=== PATIENT | male | born 1975 | race Caucasian/White ===

== ENCOUNTER 2017-10-12 23:19 | Emergency (ER) | payer MEDICARE, OTHER | END 2017-10-13 00:52 | disposition home or self-care (01) | LOC: ERS 23:19 | DX: S02.5XXA Fracture of tooth (traumatic), initial encounter for closed fracture (principal); I10 Essential (primary) hypertension; K50.90 Crohn's disease, unspecified, without complications; E78.5 Hyperlipidemia, unspecified; F41.9 Anxiety disorder, unspecified; X58.XXXA Exposure to other specified factors, initial encounter | CPT/HCPCS: 99282 ==

== ENCOUNTER 2017-11-04 13:58 | Inpatient (IN) | payer MEDICARE ==
[~2017-11-04 13:58] MED LIST: ISOVUE-370 76%-LOCM 1 ML ONE
[2017-11-04 15:19] LABS: #Lymphocytes 1.3 thou/uL (1.20-3.40); #Monocytes 0.4 thou/uL (0.11-0.59); #Neutrophils 4.6 thou/uL (1.40-6.50); %Basophils 0.1 % (0.0-1.0); %Eosinophils 0.5 % (0.0-10.0); %Lymphocytes 20.9 % (21.0-51.0); %Monocytes 6.1 % (0.0-10.0); %Neutrophils 72.4 % (42.0-75.0); Hemoglobin 13.7 g/dL (14.0-18.0); Mean Corpuscular HGB CONC 32.2 g/dL (32.0-36.0); Mean Corpuscular Hemoglobin 24.7 pg (27.0-31.0); Mean Corpuscular Volume 76.7 fl (80.0-94.0); Mean Platelet Volume 8.2 fL (7.4-10.4); Platelet Count 236 thou/uL (130-400); RBC Distribution Width 14.9 % (11.5-14.5); Red Blood Cell (RBC) Count 5.55 mill/uL (4.70-6.10); White Blood Cell (WBC) Count 6.4 thou/uL (4.8-10.8)
[2017-11-04] MEDS ORDERED: Morphine 4 MG/ML VIAL ONE (15:20)
[2017-11-04] MEDS ORDERED: Ondansetron HCl/PF 4 MG/2 ML Vial ONE (15:21)
[2017-11-04] MEDS ORDERED: Lidocaine Viscous Sol 2% 15 ml UD Cup ONE (15:40)
[2017-11-04] MEDS ORDERED: Pantoprazole 40 MG VIAL ONE (15:40)
[2017-11-04] MEDS ORDERED: Sucralfate 1 GM/10 ML UDCUP ONE (15:40)
[2017-11-04] MEDS ORDERED: Mag-Al 1200 mg/1200 mg/30 ML UDCUP ONE (15:40)
[2017-11-04 15:46] LABS: ALT (SGPT) 23 U/L (8-55); AST (SGOT) 18 U/L (5-34); Albumin 5.1 g/dL (3.5-5.0); Alkaline Phosphatase 118 U/L (40-150); Anion Gap 15 mmol/L (10-20); BUN (Urea Nitrogen) 11 mg/dL (8.9-20.6); Bilirubin, Total 0.7 mg/dL (0.2-1.2); Calc. Creatinine Clearance 0 mL/min (70-130); Calcium 10.2 mg/dL (7.8-10.44); Carbon Dioxide 24 mmol/L (22-29); Chloride 104 mmol/L (98-107); Estimated GFR-MDRD 79; Globulin 3.4 g/dL (2.4-3.5); Glucose 108 mg/dL (70-105); Lipase 11 U/L (8-78); Protein, Total 8.5 g/dL (6.0-8.3); Sodium 139 mmol/L (136-145)
[2017-11-04 16:07] LABS: PTT 26.5 SEC (22.9-36.1); Prothrombin Time 13.6 SEC (12.0-14.7)
--- NOTE | 2017-11-04 16:11 | RAD ---
FRONTAL RADIOGRAPH CHEST PORTABLE UPRIGHT: Date: 11/04/17 COMPARISON: 05/11/16. HISTORY: Vomiting blood. FINDINGS: There are suture lines associated with bilateral lung apices. Dorsal column stimulators present on the prior examination have been removed. There is a suture line overlying the mid left upper lobe region as well. Sixth rib on the left appears absent, stable. There is an old left seventh rib fracture seen. There is pulmonary hyperinflation with increased linear in terstitial density bilaterally, stable. IMPRESSION: Numerous chronic findings as detailed above. No lobar consolidation or alveolar edema. POS: [facility]
[2017-11-04] MEDS ORDERED: Morphine 10 MG/ML VIAL ONE (18:09)
[2017-11-04 18:15] LABS: Bilirubin Negative (Negative); Blood, Urine Negative (Negative); Clarity CLEAR (Clear); Glucose, Urine (Dipstick) Negative (Negative); Leukocyte Negative (Negative); Nitrite Negative (Negative); Protein, Urine (Dipstick) Negative (Neg-Trace); Specific Gravity, Urine 1.009 (1.002-1.036); Urobilinogen 0.2 mg/dL (0.2-1.0); pH, Urine 6.5 (5.0-9.0)
--- NOTE | 2017-11-04 19:20 | CT ---
CT ABDOMEN WITH CONTRAST CT PELVIS WITH CONTRAST: DATE: 11/04/17 TIME: 5:43 p.m. HISTORY: 41-year-old male with generalized abdominal pain. Hematemesis. Nausea. COMPARISON: Noncontrast CT of 03/05/17. TECHNIQUE: IV injection of iodinated contrast media: IV contrast 100 mL Isovue 370. Oral contrast media: Not administered. FINDINGS: The previously demonstrated subcutaneous emphysema in the abdominal wall and superficial subcutaneous fat, has resolved. Again noted are the cholecystectomy clips, and suture line around the most proxim al portion of the colon, which is located in the right upper quadrant of the abdomen. The appendix is surgically absent by history. No signs of acute colonic diverticulitis, pneumoperitoneum, ascites, o r small bowel dilation. The abdominal aorta, bilateral kidneys, adrenals, liver, and spleen, are norm al except for the possibility of mildly fatty liver. There is fatty replacement of the pancreatic hea d. No signs of acute pancreatitis or neoplasm. The urinary bladder is normal. IMPRESSION: 1. No acute findings. 2. Status post appendectomy, cholecystectomy, and surgical manipulation of the proximal colon. CL Escobar POS: [facility]
[2017-11-04] MEDS: Sodium Chloride 0.9% 1,000 ML IV SCH (21:00)
[2017-11-04] MEDS ORDERED: Ondansetron ODT 4 MG TAB SL PRN (21:03)
[2017-11-04] MEDS ORDERED: Ondansetron HCl/PF 4 MG/2 ML Vial IVP PRN (21:03)
[2017-11-04 21:50] VITALS: BMI 23.8
[2017-11-04] MEDS ORDERED: ALPRAZolam 1 MG TAB PO SCH (23:00)
[2017-11-04] MEDS ORDERED: Pantoprazole 80 MG in Sodium Chloride 0.9% 100 ML IVP SCH (23:54)
[2017-11-04] MEDS ORDERED: Morphine 5 MG/ML SYRINGE SLOW IVP PRN (23:54)
[2017-11-05] MEDS ORDERED: Pantoprazole 40 MG VIAL IVP SCH ×2 (00:15→09:00)
[2017-11-05] MEDS: Morphine 5 MG/ML SYRINGE SLOW IVP PRN ×6 (00:16→22:57)
[2017-11-05] MEDS: Dextrose 5 % And 0.9 % NaCl 1,000 ML IV SCH ×3 (01:24→16:08)
[2017-11-05] MEDS: Ondansetron HCl/PF 4 MG/2 ML Vial IVP PRN ×2 (03:41→23:17)
[2017-11-05] MEDS: Sodium Chloride 0.9% 1,000 ML IV SCH (05:26)
[2017-11-05 05:59] LABS: Anion Gap 15 mmol/L (10-20); BUN (Urea Nitrogen) 12 mg/dL (8.9-20.6); Calc. Creatinine Clearance 123 mL/min (70-130); Carbon Dioxide 22 mmol/L (22-29); Chloride 107 mmol/L (98-107); Estimated GFR-MDRD Greater than 90; Glucose 92 mg/dL (70-105); Lipase 104 U/L (8-78); Potassium 4.6 mmol/L (3.5-5.1); Sodium 139 mmol/L (136-145)
[2017-11-05 06:23] LABS: #Eosinphils 0.1 thou/uL (0.0-0.7); #Lymphocytes 2.1 thou/uL (1.20-3.40); #Monocytes 0.5 thou/uL (0.11-0.59); #Neutrophils 3.2 thou/uL (1.40-6.50); %Basophils 0.8 % (0.0-1.0); %Eosinophils 1.3 % (0.0-10.0); %Lymphocytes 34.9 % (21.0-51.0); %Monocytes 8.8 % (0.0-10.0); %Neutrophils 54.2 % (42.0-75.0); Hemoglobin 11.5 g/dL (14.0-18.0); Mean Corpuscular HGB CONC 32.8 g/dL (32.0-36.0); Mean Corpuscular Hemoglobin 25.4 pg (27.0-31.0); Mean Corpuscular Volume 77.5 fl (80.0-94.0); Mean Platelet Volume 10.2 fL (7.4-10.4); Platelet Count 85 thou/uL (130-400); RBC Distribution Width 14.8 % (11.5-14.5); Red Blood Cell (RBC) Count 4.54 mill/uL (4.70-6.10)
[2017-11-05] MEDS ORDERED: Propofol 200 MG/20 ML VIAL ONE (07:58)
--- NOTE | 2017-11-05 08:12 | HP ---
DATE OF ADMISSION: 11/04/2017 TIME OF SERVICE: 2119 PRIMARY CARE PHYSICIAN: Dr. Modesta Morgan. CHIEF COMPLAINT: Abdominal pain, nausea, vomiting and vomiting of blood. HISTORY OF PRESENT ILLNESS: Mr. Lindsey is a 41-year-old white male with history of chronic back pain, multiple spontaneous pneumothoraces resulting in chronic pain and neuralgias, chronic gastritis with a history of upper GI bleeding, and Crohn's disease with history of lower GI bleeding. The patient started having nausea and vomiting four days ago, persisted fairly reasonably whenever he tried to ea t anything. Two days ago, started having episodic bright red blood in his vomitus. Continued to not improve, so he presented to the emergency department for evaluation. Typically, he has bleeding fro m below, associated with his Crohn's and bleeding from above associated with his gastritis. He has n ot had any increase in NSAID intake. He normally takes his home medications and for the most part ivey s been able to keep those down. He does not take any acid suppression or H2 blockers. He is passing flatus. He describes the pain as sharp and stabbing in the epigastric area. It is worse with eating. Denies any nausea or vomiting at present. No diarrhea, constipation or gastrointestinal bleeding from below. He has had no fevers or chills. He has seen GI doctor in the past, but is looking for a new one currently. He said this earlier in the day and was on the floor by the time I saw him. PAST MEDICAL HISTORY: 1. Upper gastrointestinal bleed secondary to gastritis. 2. Chronic gastritis. 3. Essential hypertension. 4. Vitamin D deficiency. 5. Crohn's disease. 6. History of lower GI bleeding from his Crohn's. 7. Nahed's thyroiditis, on thyroid replacement. 8. Multiple spontaneous pneumothoraces, he says numbers around 12. 9. 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 PAST SURGICAL HISTORY: 1. Appendectomy. 2. Cholecystectomy. 3. Proximal small bowel resection. 4. Multiple episodes of chest tubes. 5. Lung surgery x5. 6. Skin graft from the right thigh to the calf. 7. Dorsal column stimulator implantation. 8. Thoracotomy x4. HOME MEDICATIONS: 1. Amlodipine 5 mg daily. 2. Crestor 40 mg p.o. at bedtime. 3. Xanax 1 mg p.o. t.i.d. p.r.n. anxiety. 4. Promethazine 25 mg p.o. q.6 hours p.r.n. nausea and vomiting. 5. Sumatriptan p.r.n. migraine. 6. Trazodone 150 mg p.o. b.i.d. 7. Clindamycin 300 mg p.o. q.i.d. for a 5-day course. 8. Hydrocodone/acetaminophen 5/325 one p.o. q.4-6 hours p.r.n. severe pain. 9. Oxycodone/acetaminophen 10/325 one p.o. q.6 hours p.r.n. severe muscle pain. 10. Gabapentin 1200 mg p.o. t.i.d. 11. Eszopiclone 3 mg p.o. at bedtime immediately for bedtime. 12. Synthroid 300 mcg daily. 13. Crestor 40 mg p.o. at bedtime. ALLERGIES: DILAUDID, TORADOL, DEMEROL, PENICILLIN, REGLAN, and COMPAZINE. Most of them caused rash. FAMILY HISTORY: Negative for clotting or bleeding disorder, no immune dysfunction. No blood tumors. SOCIAL HISTORY: Negative for habits x3. RADIOGRAPHIC STUDIES: He had a chest x-ray shows dorsal column stimulator, left upper lobe suture li ne in left sixth rib, looks like it is missing. A CT scan of the abdomen and pelvis showed no acute findings. REVIEW OF SYSTEMS: A 10-point review of systems was performed and is negative for all systems except as stated per HPI. PHYSICAL EXAMINATION: VITAL SIGNS: Temperature 98.5, pulse 94, blood pressure 136/85, respiratory rate 16, satting 99% yeimi m air. GENERAL: He is awake. He is alert. He is oriented x3. Well-developed, well-nourished, white male who appears to be in no acute distress, although he looks like he does not feel good. HEENT: Normocephalic and atraumatic. His pupils are equal, round and reactive to light bilaterally. Mucous membranes are moist. No visible lesion, no thrush. NECK: Supple, without lymphadenopathy, JVD or thyromegaly. LUNGS: Clear to auscultation. He has decreased breath sounds to the left posterior upper field. Th ere are no crackles, no wheezing, no prolonged expiratory phase. CARDIOVASCULAR: Normal cardiac and regular. Normal S1, S2. I do not appreciate an S3 or S4. ABDOMEN: Soft. It is tender in the epigastric area. There is no rebound, rigidity or guarding. Hy peractive bowel sounds present in all 4 quadrants. EXTREMITIES: No cyanosis, no clubbing, no edema. He has 2+ peripheral pulse in the dorsalis pedis a nd posterior tibial arteries. SKIN: Warm, moist and well-perfused. There are no other rashes or lesions. NEUROLOGIC: Cranial nerves II through XII are grossly intact. He has 5/5 strength in all 4 extremit ies, has no focal deficits. Normal speech pattern. MUSCULOSKELETAL: Normal to inspection. Large joints appear un-inflamed. No palpable effusions. Go od range of motion. LABORATORY DATA: Sodium 134, potassium 4.0, chloride 104, bicarbonate 24, BUN 11, creatinine 1.05, g lucose 108 and calcium 10.2. Liver function within normal limits. CBC showed white count 6.4, hemoglobin 13.7, hematocrit 42.6, a nd platelet count is 236,000. Urinalysis was negative. INR was 1.0. ASSESSMENT AND PLAN: 1. Epigastric pain with nausea, vomiting, hematemesis. Likely exacerbation was chronic gastritis. We will start him on a Protonix drip. Clear liquid diet only. N.p.o. after midnight. We will ask G I to evaluate. We will repeat his H&H in the morning. That was only about 6-7 hours after the last one he had. I will continue him on IV fluids at 100 mL per hour overnight. 2. Hypertension. Blood pressure is normal right now. Hold his medicines as he will be n.p.o. 3. History of Nahed's thyroiditis, no hypothyroid. We will hold the Synthroid long-acting. 4. History of peripheral neuropathy and neuralgia, on gabapentin. We will try to continue. 5. Hyperlipidemia on Crestor. We will hold. 6. Anxiety, on Xanax. We will use IV Ativan as needed and instead while he is n.p.o. 7. History of chronic pain on Percocet, morphine ordered as needed until he is seen by GI.
[2017-11-05] MEDS: Pantoprazole 40 MG VIAL IVP SCH ×2 (08:37→20:34)
[2017-11-05] MEDS: Gabapentin 400 MG CAP PO SCH ×3 (08:37→20:35)
--- NOTE | 2017-11-05 12:00 | CON ---
DATE OF CONSULTATION: 11/04/2017 GI CONSULT HISTORY OF PRESENT ILLNESS: Mr. Lindsey was admitted today from the ER where he presented with several days of nausea, vomiting, and then began to have some emesis, sometimes bright red, sometimes darker , he has had no melena. He has a history of gastritis in the past, reports about a year ago and had an upper endoscopy with Dr. Sam whose primary gastrologist at [facility]. He was told to stop taking NSAIDs, as he has done for the most part, was still take some. He also was placed on a PPI. He is on chronic pain medications now regard with some back issues. He complains of some epigastric pain, which began after this vomiting, does not recall anything and also the vomiting, did not eat an ything or have any viral-like symptoms. He does have a remote history of Crohn's disease resection i n his teenage years. He states he has been in remission with no medications in over 10 years. Here in the emergency room, he initially presented with tachycardia with heart rate in the 140s, but after hydration, he is down to 80 to 90. He has been afebrile with stable vital signs. A CAT scan showed no acute changes of the previous surgeries and previous right colon resection. The patient has note d no melena, hematochezia, or hematemesis. He denies any lower abdominal pain. White count of 6.4, hemoglobin 13.7, MCV of 76. Normal INR. Sodium 139, potassium 4, BUN and creatinine are 11 and 1.05 , glucose 108. Liver function tests normal. Albumin was 5.1, total protein is 8.5. C-reactive prot ein was 1.39. Toxicology positive for urine opiates, oxycodone, benzodiazepines. CT scan was review ed and normal except for postsurgical changes noted above. I personally reviewed the abdominal image s, no signs of bowel obstruction, decompressed colon with some stool in the proximal transverse colon . PAST MEDICAL HISTORY: Remote history of Crohn's disease, but in remission for 10 years in no medicat ions, has had previous right hemicolectomy, history of multiple spontaneous pneumothoraces in the pas t, previous chest tube removal, history of migraines, history of hypothyroidism, history of gastritis . History of Nahed's thyroiditis in the past, chronic neuralgia for multiple surgeries. PAST SURGICAL HISTORY: Hemicolectomy right, cholecystectomy, multiple lung surgeries, skin graft rig ht thigh . PSYCHIATRIC HISTORY: History of anxiety. SOCIAL HISTORY: The patient denies drugs, alcohol, or tobacco. ALLERGIES: COMPAZINE, DILAUDID, PENICILLIN, and TORADOL. REVIEW OF SYSTEMS: Negative for headache, visual changes, seizure activity, lower abdominal pain, di arrhea. Denies alcohol use. Denies withdrawal from pain medications. HOME MEDICATIONS: OxyContin, fentanyl, sucralfate, Imitrex, promethazine, Protonix, Synthroid, gabap entin, Calciferol, vitamin D, atorvastatin, amlodipine, and Xanax. PRESENT MEDICATIONS: Zofran and receiving IV fluids in the ER. PHYSICAL EXAMINATION: GENERAL: The patient is resting in bed. He . VITAL SIGNS: Temperature is 98.5, pulse 94, blood pressure 136/85. HEENT: Oropharynx without lesions. NECK: Supple without adenopathy. LUNGS: Clear. HEART: Regular rate and rhythm without clicks or murmurs. ABDOMEN: Soft, nontender. There is no rebound. There is mild tenderness in epigastrium, but no gua rding. EXTREMITIES: Reveal no clubbing, cyanosis, or edema. SKIN: Without rash or lesions. LABORATORY STUDIES: As per HPI. ASSESSMENT: Hematemesis self-limited likely related to Lee Ann-Loomis tear. He has a history of this in the past and history of chronic issues, nausea, and gastritis, unclear of sort of medications or nonsteroidal anti-inflammatory drugs. He denies any acute exacerbating factors including narcotic me dication withdrawal from running out of those. There does not seem he has any evidence of active Croh n's by his imaging studies or labs. This has not been typical of his previous Crohn's reports, these are characterized by diarrhea and blood in the stool. RECOMMENDATIONS: 1. IV PPI. 2. IV fluids. 3. Antiemetics. 4. Would continue his pain medication regimen, prevent withdrawal, and anxiety medicines. Plan for EGD tomorrow.
[2017-11-05] MEDS ORDERED: Ondansetron HCl/PF 4 MG/2 ML Vial IVP PRN (15:11)
[2017-11-05] MEDS ORDERED: Fentanyl 100 MCG/2 ML VIAL ONE ×2 (15:17→15:44)
[2017-11-05] MEDS ORDERED: Ondansetron HCl/PF 4 MG/2 ML Vial ONE (15:34)
--- NOTE | 2017-11-05 15:36 | OP ---
DATE OF PROCEDURE: 11/05/2017 PROCEDURE: Esophagogastroduodenoscopy with biopsy. INDICATION FOR PROCEDURE: Hematemesis. DESCRIPTION OF PROCEDURE: After the risks and benefits of the procedure were explained to the patien t including risks of infection, bleeding, perforation, reaction to anesthesia and/or pain, informed c onsent was obtained. The patient was then taken to the endoscopy suite where deep sedation was admin istered via anesthesia propofol and anesthesia support. The standard gastroscope was then introduced into the mouth with intubation of the esophagus, stomach and the proximal small intestine with the f indings listed below. The patient tolerated the procedure well with no immediate perioperative compl ications. FINDINGS: ESOPHAGUS: Normal appearing mucosa was seen in the proximal, mid and distal esophagus. There was no evidence of erosions, ulcerations, mass lesions or Lee Ann-Loomis tears. Both the diaphragmatic pinc h and GE junction were well seen at 41 cm past the incisors. STOMACH: Normal appearing mucosa was seen in the gastric cardia, fundus and incisura. A 3-4 mm eros ion was seen along the lesser curvature of the stomach with increased surrounding mucosal erythema an d a small blood clot in the center of it. This was biopsied for histological evaluation and placed i n a specimen jar for review. There was no evidence of high risk stigmata of bleeding including visib le vessel red spot or adherent clot. Mild mucosal erythema was also seen in the gastric antrum exten ding proximally from the pylorus in a starburst type pattern, but again without overt erosion, ulcera tion or mass lesions. DUODENUM: Normal appearing mucosa was seen in both the duodenal bulb and second portion of the duode num with no evidence of erosions, ulcerations, or mass lesions. IMPRESSION: 1. A 3-4 mm gastric erosion seen in the lesser curvature with a very small adherent clot, now status post biopsy (most likely source of recent hematemesis). 2. Mild mucosal erythema in the gastric antrum extending approximately from the pylorus in a starbur st pattern consistent with nonspecific gastropathy. 3. No evidence of Lee Ann-Loomis tear seen during this examination. RECOMMENDATIONS: 1. Would continue to trend hemoglobin and hematocrit and transfuse as necessary to maintain hemoglob in and hematocrit of 7/21. 2. Would continue with IV pantoprazole 40 mg b.i.d. 3. Would continue with aggressive antiemetic therapy including ondansetron 4 mg every 6 hours in add ition to lorazepam for his antiemetic effects. Could also consider addition of Reglan 10 mg t.i.d. a s needed for additional antiemetic support. 4. Given negative findings on the upper endoscopy, patient could be started on clear liquid diet. We will continue to follow. Please call with any questions.
--- NOTE | 2017-11-05 15:52 | PDOC.PN ---
- Subjective Encounter Start Date: 11/05/17 Encounter Start Time: 08:20 Pt seen for followup re; hematemesis. Feels slightly better. No fevers. No bowel movement in 3 days. No hematemesis today. - Objective Resuscitation Status: Resuscitation Status FULL:Full Resuscitation MAR Reviewed: Yes Vital Signs & Weight: Vital Signs (12 hours) Temp Pulse Resp BP Pulse Ox 11/05/17 11:37 77 18 134/68 11/05/17 08:42 98.3 F 66 18 100/61 98 11/05/17 07:49 97.9 F 64 16 11/05/17 05:24 97.9 F 64 16 109/60 95 Weight Admit Weight 176 lb Weight 176 lb I&O: 11/04/17 11/05/17 11/06/17 06:59 06:59 06:59 Intake Total 930 Balance 930 Result Diagrams: 11/05/17 05:37 11/05/17 05:37 Phys Exam - Physical Examination Constitutional: NAD HEENT: PERRLA, moist MMs, sclera anicteric, oral pharynx no lesions Neck: no nodes, no JVD, supple, full ROM Respiratory: no wheezing, no rales, no rhonchi, clear to auscultation bilateral Cardiovascular: RRR, no rub Gastrointestinal: soft, non-tender, positive bowel sounds Neurological: moves all 4 limbs Psychiatric: normal affect Skin: no rash Dx/Plan (1) Hematemesis Code(s): K92.0 - HEMATEMESIS Status: Acute Comment: GI consulted, for EGD (2) HTN (hypertension) Code(s): I10 - ESSENTIAL (PRIMARY) HYPERTENSION Status: Chronic Comment: Monitor vital signs,titrate antihypertensives as needed (3) Crohns disease Code(s): K50.90 - CROHN'S DISEASE, UNSPECIFIED, WITHOUT COMPLICATIONS Status: Chronic (4) Nahed's thyroiditis Code(s): E06.3 - AUTOIMMUNE THYROIDITIS Status: Chronic Comment: continue thyroid replacement - Plan * . Review of Systems - Review of Systems Constitutional: negative: fever, chills, sweats, weakness, malaise Respiratory: negative: Cough, Dry, Shortness of Breath, Hemoptysis, SOB with Excertion, Pleuritic Pain, Sputum, Wheezing Cardiovascular: negative: chest pain, palpitations, orthopnea, paroxysmal nocturnal dyspnea, edema, light headedness Gastrointestinal: Nausea, Vomiting, Constipation, Other (Hematemesis). negative : Abdominal Pain, Diarrhea, Melena, Hematochezia Genitourinary: negative: Dysuria, Frequency, Incontinence, Hematuria, Retention - Medications/Allergies Allergies/Adverse Reactions: Allergies Allergy/AdvReac Type Severity Reaction Status Date / Time hydromorphone HCl Allergy Verified 05/21/16 04:25 [From Dilaudid] ketorolac tromethamine Allergy Verified 05/21/16 04:25 [From Toradol] meperidine Allergy Verified 05/21/16 04:25 Penicillins Allergy Verified 05/21/16 04:25 prochlorperazine Allergy Verified 05/21/16 04:25 [From Compazine] prochlorperazine edisylate Allergy Verified 05/21/16 04:25 [From Compazine] prochlorperazine maleate Allergy Verified 05/21/16 04:25 [From Compazine] Medications: Current Medications Fentanyl (Pacu-Sublimaze) 50 mcg SLOW IVP Q10MIN PRN PRN Reason: Moderate to Severe Pain (6-10) Stop: 11/05/17 18:11 Gabapentin (Neurontin) 400 mg PO TID [facility] Last Admin: 11/05/17 08:37 Dose: Not Given Dextrose/Sodium Chloride (D5 0.9% Ns) 1,000 mls @ 125 mls/hr IV .Q8H [facility] Last Admin: 11/05/17 08:36 Dose: Not Given Sodium Chloride (Normal Saline 0.9%) 1,000 mls @ 100 mls/hr IV .Q10H [facility] Last Admin: 11/05/17 05:26 Dose: 1,000 mls Lorazepam (Ativan) 0.5 mg SLOW IVP Q6H PRN PRN Reason: Anxiety/Agitation Morphine Sulfate (Morphine) 2 mg SLOW IVP Q4H PRN PRN Reason: Moderate Pain (4-6) Morphine Sulfate (Morphine) 4 mg SLOW IVP Q4H PRN PRN Reason: Severe Pain (7-10) Last Admin: 11/05/17 11:35 Dose: 4 mg Ondansetron HCl (Zofran) 4 mg IVP Q6H PRN PRN Reason: Nausea/Vomiting Last Admin: 11/05/17 03:41 Dose: 4 mg Ondansetron HCl (Pacu-Zofran) 4 mg IVP ONE PRN PRN Reason: Nausea/Vomiting Stop: 11/05/17 18:11 Pantoprazole Sodium (Protonix) 40 mg IVP BID [facility] Last Admin: 11/05/17 08:37 Dose: 40 mg Sodium Chloride (Flush - Normal Saline) 10 ml IVF PRN PRN PRN Reason: Saline Flush Sodium Chloride (Flush - Normal Saline) 10 ml IVF Q12HR [facility] Last Admin: 11/05/17 08:30 Dose: 10 ml
[2017-11-05] MEDS ORDERED: ALPRAZolam 0.25 MG TAB PO PRN (16:06)
[2017-11-05] MEDS ORDERED: Promethazine HCl 25 MG SUPP PR PRN (16:06)
[2017-11-05] MEDS ORDERED: Sucralfate 1 GM TAB PO PRN (16:06)
[2017-11-05] MEDS ORDERED: Metoclopramide HCl 10 MG/2 ML VIAL IVP PRN (16:09)
[2017-11-05] MEDS ORDERED: SUMAtriptan Succinate 6 MG/0.5 ML VIAL SC PRN (16:23)
[2017-11-05] MEDS: Lorazepam 2 MG/ML VIAL SLOW IVP PRN (20:34)
[2017-11-05] MEDS ORDERED: ALPRAZolam 1 MG TAB PO ONE (22:19)
[2017-11-06] MEDS: Sodium Chloride 0.9% 1,000 ML IV SCH ×3 (01:09→16:10)
[2017-11-06] MEDS: Dextrose 5 % And 0.9 % NaCl 1,000 ML IV SCH ×3 (02:49→10:10)
[2017-11-06] MEDS: Morphine 5 MG/ML SYRINGE SLOW IVP PRN ×4 (03:24→17:07)
[2017-11-06] MEDS: Lorazepam 2 MG/ML VIAL SLOW IVP PRN (05:00)
[2017-11-06] MEDS ORDERED: Levothyroxine 150 MCG TAB PO SCH (06:00)
[2017-11-06] MEDS: Gabapentin 400 MG CAP PO SCH ×2 (08:39→14:59)
[2017-11-06] MEDS: Pantoprazole 40 MG VIAL IVP SCH (08:43)
[2017-11-06] MEDS: Ondansetron HCl/PF 4 MG/2 ML Vial IVP PRN ×2 (08:45→14:02)
[2017-11-06] MEDS ORDERED: Amlodipine 10 MG TAB PO SCH (09:00)
[2017-11-06] MEDS ORDERED: Atorvastatin Calcium 20 MG TAB PO SCH (09:00)
[2017-11-06 17:24] VITALS: BP 124/78; TEMP 98.6
--- NOTE | 2017-11-06 18:18 | PDOC.PN ---
- Subjective Encounter Start Date: 11/06/17 (\) Encounter Start Time: 10:20 Pt seen for followup re: GI bleed. Denies any hematemesis. Nausea+, no vomiting. Abdo pain better. - Objective Resuscitation Status: Resuscitation Status FULL:Full Resuscitation MAR Reviewed: Yes Vital Signs & Weight: Vital Signs (12 hours) Temp Pulse Resp BP Pulse Ox 11/06/17 17:23 98.6 F 82 20 124/78 11/06/17 12:36 98.4 F 85 18 130/83 11/06/17 08:00 98.3 F 77 20 132/84 98 Weight Admit Weight 176 lb Weight 176 lb I&O: 11/05/17 11/06/17 11/07/17 06:59 06:59 06:59 Intake Total 930 1250 Balance 930 1250 Result Diagrams: 11/05/17 05:37 11/05/17 05:37 Phys Exam - Physical Examination Constitutional: NAD HEENT: moist MMs, oral pharynx no lesions Neck: supple Respiratory: clear to auscultation bilateral Cardiovascular: RRR Gastrointestinal: soft, non-tender, positive bowel sounds Neurological: moves all 4 limbs Psychiatric: normal affect Dx/Plan (1) Hematemesis Code(s): K92.0 - HEMATEMESIS Status: Acute Comment: s/p EGD, report noted (2) HTN (hypertension) Code(s): I10 - ESSENTIAL (PRIMARY) HYPERTENSION Status: Chronic Comment: titrate antihypertensives as needed (3) Crohns disease Code(s): K50.90 - CROHN'S DISEASE, UNSPECIFIED, WITHOUT COMPLICATIONS Status: Chronic (4) Nahed's thyroiditis Code(s): E06.3 - AUTOIMMUNE THYROIDITIS Status: Chronic Comment: continue levothyroxine - Plan * . Recheck labs (platelets low, lipase high yesterday). Likely home later today. Review of Systems - Review of Systems Respiratory: negative: Cough, Dry, Shortness of Breath, Hemoptysis, SOB with Excertion, Pleuritic Pain, Sputum, Wheezing Cardiovascular: negative: chest pain, palpitations, orthopnea, paroxysmal nocturnal dyspnea, edema, light headedness Gastrointestinal: Nausea, Abdominal Pain. negative: Vomiting, Diarrhea, Constipation, Melena, Hematochezia - Medications/Allergies Allergies/Adverse Reactions: Allergies Allergy/AdvReac Type Severity Reaction Status Date / Time hydromorphone HCl Allergy Verified 05/21/16 04:25 [From Dilaudid] ketorolac tromethamine Allergy Verified 05/21/16 04:25 [From Toradol] meperidine Allergy Verified 05/21/16 04:25 Penicillins Allergy Verified 05/21/16 04:25 prochlorperazine Allergy Verified 05/21/16 04:25 [From Compazine] prochlorperazine edisylate Allergy Verified 05/21/16 04:25 [From Compazine] prochlorperazine maleate Allergy Verified 05/21/16 04:25 [From Compazine] Medications: Current Medications Alprazolam (Xanax) 0.25 mg PO Q6HR PRN PRN Reason: Anxiety Last Admin: 11/06/17 13:15 Dose: 0.25 mg Amlodipine Besylate (Norvasc) 10 mg PO DAILY [facility] Last Admin: 11/06/17 08:40 Dose: 10 mg Atorvastatin Calcium (Lipitor) 20 mg PO DAILY [facility] Last Admin: 11/06/17 08:40 Dose: 20 mg Cholecalciferol (Vitamin D3) 1,000 units PO DAILY [facility] Last Admin: 11/06/17 08:41 Dose: 1,000 units Gabapentin (Neurontin) 1,200 mg PO TID [facility] Last Admin: 11/06/17 14:59 Dose: 1,200 mg Dextrose/Sodium Chloride (D5 0.9% Ns) 1,000 mls @ 125 mls/hr IV .Q8H [facility] Last Admin: 11/06/17 10:10 Dose: 1,000 mls Sodium Chloride (Normal Saline 0.9%) 1,000 mls @ 100 mls/hr IV .Q10H [facility] Last Admin: 11/06/17 16:10 Dose: Not Given Levothyroxine Sodium (Synthroid) 300 mcg PO 0600 [facility] Last Admin: 11/06/17 06:18 Dose: 300 mcg Lorazepam (Ativan) 0.5 mg SLOW IVP Q6H PRN PRN Reason: Anxiety/Agitation Last Admin: 11/06/17 05:00 Dose: 0.5 mg Morphine Sulfate (Morphine) 2 mg SLOW IVP Q4H PRN PRN Reason: Moderate Pain (4-6) Morphine Sulfate (Morphine) 4 mg SLOW IVP Q4H PRN PRN Reason: Severe Pain (7-10) Last Admin: 11/06/17 17:07 Dose: 4 mg Ondansetron HCl (Zofran) 4 mg IVP Q6H PRN PRN Reason: Nausea/Vomiting Last Admin: 11/06/17 14:02 Dose: 4 mg Pantoprazole Sodium (Protonix) 40 mg IVP BID [facility] Last Admin: 11/06/17 08:43 Dose: 40 mg Pantoprazole Sodium (Protonix) 40 mg PO DAILY [facility] Last Admin: 11/06/17 08:43 Dose: Not Given Promethazine HCl (Phenergan Suppository) 25 mg [place] Q6HR PRN PRN Reason: Nausea Sodium Chloride (Flush - Normal Saline) 10 ml IVF PRN PRN PRN Reason: Saline Flush Last Admin: 11/06/17 01:09 Dose: 10 ml Sodium Chloride (Flush - Normal Saline) 10 ml IVF Q12HR [facility] Last Admin: 11/06/17 08:43 Dose: 10 ml Sucralfate (Carafate) 1 gm PO TID PRN PRN Reason: Dyspepsia Sumatriptan Succinate (Imitrex) 6 mg SC Q1H PRN PRN Reason: Migraine Headache
[2017-11-06 18:28] LABS: #Lymphocytes 1.3 thou/uL (1.20-3.40); #Monocytes 0.3 thou/uL (0.11-0.59); #Neutrophils 2.6 thou/uL (1.40-6.50); %Eosinophils 0.8 % (0.0-10.0); %Lymphocytes 30.2 % (21.0-51.0); %Monocytes 7.9 % (0.0-10.0); %Neutrophils 60.2 % (42.0-75.0); Hemoglobin 11.4 g/dL (14.0-18.0); Mean Corpuscular HGB CONC 31.9 g/dL (32.0-36.0); Mean Corpuscular Hemoglobin 24.8 pg (27.0-31.0); Mean Corpuscular Volume 77.6 fl (80.0-94.0); Mean Platelet Volume 8.1 fL (7.4-10.4); Platelet Count 199 thou/uL (130-400); RBC Distribution Width 14.5 % (11.5-14.5); Red Blood Cell (RBC) Count 4.62 mill/uL (4.70-6.10); White Blood Cell (WBC) Count 4.3 thou/uL (4.8-10.8)
[2017-11-06 18:46] LABS: ALT (SGPT) 17 U/L (8-55); AST (SGOT) 15 U/L (5-34); Albumin 4.5 g/dL (3.5-5.0); Alkaline Phosphatase 105 U/L (40-150); Anion Gap 12 mmol/L (10-20); BUN (Urea Nitrogen) 10 mg/dL (8.9-20.6); Bilirubin, Total 0.7 mg/dL (0.2-1.2); Calc. Creatinine Clearance 126 mL/min (70-130); Calcium 9.3 mg/dL (7.8-10.44); Carbon Dioxide 29 mmol/L (22-29); Chloride 102 mmol/L (98-107); Estimated GFR-MDRD Greater than 90; Globulin 2.7 g/dL (2.4-3.5); Glucose 103 mg/dL (70-105); Lipase 5 U/L (8-78); Protein, Total 7.2 g/dL (6.0-8.3); Sodium 139 mmol/L (136-145)
--- NOTE | 2017-11-06 18:51 | PRG ---
DATE OF SERVICE: 11/06/2017 SUBJECTIVE: Mr. Lindsey is tolerating full liquid diet. PHYSICAL EXAMINATION: VITAL SIGNS: Temperature is 98.4, pulse 85, blood pressure 123/83. ABDOMEN: Soft, nontender. LABORATORY DATA: No labs today. ASSESSMENT: 1. Mild gastritis, positive for Helicobacter pylori. 2. Nausea, vomiting, resolved. 3. Anxiety. I think this is probably the prime move in his symptomatology from reviewing his record s and previous admissions. 4. The remote history of inflammatory bowel disease with previous resection, he has been under thera py for over 10 years. There are no signs of inflammatory bowel disease on his imaging studies. RECOMMENDATIONS: 1. Optimize management of his anxiety. 2. PPI therapy. 3. Avoidance of NSAIDs. 4. Patient can go home and follow up with his primary gastrologist at [facility] there. At this time, there is no further intervention needed from a GI standpoint.
--- NOTE | 2017-11-06 20:31 | DIS ---
PRIMARY CARE PHYSICIAN: Dr. Modesta Morgan. DATE OF ADMISSION: 11/04/2017 DATE OF DISCHARGE: 11/06/2017 DISCHARGE DIAGNOSES: 1. Gastrointestinal bleed. 2. Gastric erosion. CONDITION OF PATIENT AT THE TIME OF DISCHARGE: Stable. I assessed Mr. Lindsey on the day of discharge . He reports improvement in his nausea. He denies any further GI bleeding. Vital signs are stable. S1 and S2 are heard, regular. Lungs are clear to auscultation bilaterally. CONSULTATIONS DURING THIS HOSPITALIZATION: Gastroenterology, Dr. Hameed. PROCEDURES DURING THIS HOSPITALIZATION: On 11/05/2017, patient underwent EGD, which showed 3-4 mm ga stric erosion in the lesser curvature with a very small adherent clot. This was biopsied. He also ivey d mild mucosal erythema in the gastric antrum extending approximately from the pylorus in a starburst pattern consistent with nonspecific gastropathy. BIOPSY SPECIMENS: Biopsy of stomach, pathology was negative for Helicobacter like organisms. It elizabeth wed reactive gastropathy with erosion within oxyntic mucosa. It was negative for neoplasia. DISCHARGE MEDICATIONS: Please refer to the list of preadmission home medications noted on history an d physical note from 11/04/2017. He has been advised to increase his Prilosec to twice daily. I am also giving him a prescription for 15 doses of Tylenol No. 3, one tablet orally every 6 hours as need ed. I am also giving him a prescription for Xanax 0.25 mg 3 times a day as needed, 15 doses to be di spensed. HOSPITAL COURSE: Mr. Lindsey is a pleasant 41-year-old gentleman who was admitted to [facility] for hematemesis. He was seen by Gastroenterology Service and underwent EGD, finding s as mentioned above. He improved clinically and is being discharged home in a stable condition. [place] [facility] has cleared him for discharge. He has also been asked to follow up with his [facility] a and p technician. He is also advised to follow up with his primary care physician. LABORATORY DATA: On 11/05/2017, he had a white count of 6000, hemoglobin 11.5, platelet count 85,000 , normal Chem-7, and lipase of 104. DISCHARGE DESTINATION: Home. TOTAL AMOUNT OF TIME SPENT COORDINATING THIS DISCHARGE: 38 minutes.
--- NOTE | 2017-11-07 00:08 | ADD-DIS ---
ADDENDUM Mr. Lindsey has white count of 4300, hemoglobin 11.4, platelet count 199,000. Normal comprehensive met abolic profile and a low lipase of 5.
== END 2017-11-06 19:21 | disposition home or self-care (01) | DRG 379 ==
LOC: ERS 13:58 → 3SE 20:57
PROVIDERS: ADMIT Internal Medicine; ATTEND Internal Medicine
PROC: 0DB68ZX Excision of Stomach, Via Natural or Artificial Opening Endoscopic, Diagnostic (ICD-10-PCS; principal; 2017-11-05)
DX: K25.4 Chronic or unspecified gastric ulcer with hemorrhage (principal); G62.9 Polyneuropathy, unspecified; I10 Essential (primary) hypertension; E06.3 Autoimmune thyroiditis; E78.5 Hyperlipidemia, unspecified; F41.9 Anxiety disorder, unspecified; G89.29 Other chronic pain; K31.9 Disease of stomach and duodenum, unspecified; Z87.19 Personal history of other diseases of the digestive system; Z88.5 Allergy status to narcotic agent; Z88.0 Allergy status to penicillin; Z88.8 Allergy status to other drugs, medicaments and biological substances; Z79.899 Other long term (current) drug therapy; Z90.49 Acquired absence of other specified parts of digestive tract
CPT/HCPCS: 36415; 71045; 74177; 80048; 80053; 81003; 83690; 85025; 85610; 85730; 86850; 86900; 86901; 88305; 88312; 96361; 96374; 96375; 96376; J2270; A4216; C9113; J2060; J2405; J2704; J3010; J7050

== ENCOUNTER 2017-11-30 15:55 | Emergency (ER) | payer OTHER, MEDICARE ==
[2017-11-30 16:26] LABS: #Lymphocytes 1.2 thou/uL (1.20-3.40); #Monocytes 0.4 thou/uL (0.11-0.59); #Neutrophils 3.3 thou/uL (1.40-6.50); %Basophils 0.8 % (0.0-1.0); %Eosinophils 0.4 % (0.0-10.0); %Lymphocytes 23.8 % (21.0-51.0); %Monocytes 7.8 % (0.0-10.0); %Neutrophils 67.3 % (42.0-75.0); Hemoglobin 12.9 g/dL (14.0-18.0); Mean Corpuscular HGB CONC 32.8 g/dL (32.0-36.0); Mean Corpuscular Hemoglobin 25.1 pg (27.0-31.0); Mean Corpuscular Volume 76.4 fl (80.0-94.0); Mean Platelet Volume 8.1 fL (7.4-10.4); Platelet Count 209 thou/uL (130-400); RBC Distribution Width 14.9 % (11.5-14.5); Red Blood Cell (RBC) Count 5.16 mill/uL (4.70-6.10); White Blood Cell (WBC) Count 4.8 thou/uL (4.8-10.8)
[2017-11-30] MEDS ORDERED: Mag-Al 1200 mg/1200 mg/30 ML UDCUP ONE (16:36)
[2017-11-30] MEDS ORDERED: Lidocaine Viscous Sol 2% 15 ml UD Cup ONE (16:36)
[2017-11-30] MEDS ORDERED: Sucralfate 1 GM/10 ML UDCUP ONE (16:36)
[2017-11-30 16:50] LABS: ALT (SGPT) 22 U/L (8-55); AST (SGOT) 15 U/L (5-34); Albumin 4.9 g/dL (3.5-5.0); Alkaline Phosphatase 107 U/L (40-150); Anion Gap 14 mmol/L (10-20); BUN (Urea Nitrogen) 11 mg/dL (8.9-20.6); Bilirubin, Total 0.6 mg/dL (0.2-1.2); Calc. Creatinine Clearance 0 mL/min (70-130); Calcium 9.8 mg/dL (7.8-10.44); Carbon Dioxide 25 mmol/L (22-29); Chloride 105 mmol/L (98-107); Estimated GFR-MDRD 85; Globulin 2.9 g/dL (2.4-3.5); Glucose 120 mg/dL (70-105); Lipase 15 U/L (8-78); Potassium 3.5 mmol/L (3.5-5.1); Protein, Total 7.8 g/dL (6.0-8.3); Sodium 140 mmol/L (136-145)
== END 2017-11-30 17:04 | disposition home or self-care (01) ==
LOC: ERS 15:55
DX: K29.70 Gastritis, unspecified, without bleeding (principal); I10 Essential (primary) hypertension; F41.9 Anxiety disorder, unspecified; E06.3 Autoimmune thyroiditis; E55.9 Vitamin D deficiency, unspecified; K50.90 Crohn's disease, unspecified, without complications; Z79.899 Other long term (current) drug therapy
CPT/HCPCS: 36415; 80053; 82150; 83690; 85025; 96372

== ENCOUNTER 2018-05-03 08:14 | Emergency (ER) | payer MEDICARE, OTHER ==
[2018-05-03] MEDS ORDERED: ISOVUE-370 76%-LOCM 1 ML ONE (08:29)
[2018-05-03] MEDS ORDERED: Morphine 4 MG/ML VIAL ONE (08:44)
[2018-05-03] MEDS ORDERED: Ondansetron HCl/PF 4 MG/2 ML Vial ONE (08:44)
[2018-05-03 08:51] LABS: #Eosinphils 0.1 thou/uL (0.0-0.7); #Lymphocytes 1.5 thou/uL (1.20-3.40); #Monocytes 0.5 thou/uL (0.11-0.59); #Neutrophils 3.4 thou/uL (1.40-6.50); %Basophils 0.1 % (0.0-1.0); %Eosinophils 0.9 % (0.0-10.0); %Lymphocytes 27.8 % (21.0-51.0); %Monocytes 8.7 % (0.0-10.0); %Neutrophils 62.5 % (42.0-75.0); Hemoglobin 11.1 g/dL (14.0-18.0); Mean Corpuscular HGB CONC 32.8 g/dL (32.0-36.0); Mean Corpuscular Hemoglobin 25.2 pg (27.0-31.0); Mean Corpuscular Volume 76.9 fL (78.0-98.0); Mean Platelet Volume 8.5 fL (7.4-10.4); Platelet Count 215 thou/uL (130-400); RBC Distribution Width 14.6 % (11.5-14.5); Red Blood Cell (RBC) Count 4.41 mill/uL (4.70-6.10); White Blood Cell (WBC) Count 5.4 thou/uL (4.8-10.8)
[2018-05-03 09:12] LABS: ALT (SGPT) Less than 7 U/L (8-55); AST (SGOT) 6 U/L (5-34); Albumin 3.9 g/dL (3.5-5.0); Alkaline Phosphatase 91 U/L (40-150); Anion Gap 13 mmol/L (10-20); BUN (Urea Nitrogen) 11 mg/dL (8.9-20.6); Bilirubin, Total 0.2 mg/dL (0.2-1.2); Calc. Creatinine Clearance 0 mL/min (70-130); Calcium 8.9 mg/dL (7.8-10.44); Carbon Dioxide 26 mmol/L (22-29); Chloride 106 mmol/L (98-107); Estimated GFR-MDRD Greater than 90; Globulin 2.4 g/dL (2.4-3.5); Glucose 119 mg/dL (70-105); Lipase 85 U/L (8-78); Potassium 3.6 mmol/L (3.5-5.1); Protein, Total 6.3 g/dL (6.0-8.3); Sodium 141 mmol/L (136-145)
--- NOTE | 2018-05-03 11:23 | CT ---
CT ABDOMEN WITH CONTRAST CT PELVIS WITH CONTRAST COMPARISON: 11/04/17. HISTORY: Crohn's disease. Appendectomy. Cholecystectomy. Previous bowel resection. The patient is having p ain. Right lower quadrant discomfort. TECHNIQUE: Abdomen and pelvic CT is performed with IV contrast. Enteric contrast was also administered. Arteaga l reformatted images are submitted for interpretation. FINDINGS: ABDOMEN CT: Dependent atelectatic change in the lung bases. Heart size is normal. No pericardial effusion. The descending thoracic aorta and abdominal aorta have a normal caliber. No periaortic fat stranding. The gallbladder is surgically absent. Patent portal vein. Liver, spleen, and adrenal glands have appropriate enhancement. Stable attenuation of the pancreas w ith atrophy of the head of the pancreas. Symmetric enhancement of the kidneys. Bilaterally, no obstructive uropathy. No gastrohepatic, retrocrural, or periportal lymphadenopathy. No mesenteric mass, lymphadenopathy, free air, or free fluid. Gastric mucosa, duodenum, and multiple normal-caliber small bowel loops are identified. Contrast opa cifies proximal small bowel loops. No obvious mucosal abnormality. Note, the entire small bowel is not opacified with contrast. There is a right hemicolectomy. The ileocecal junction is unremarkable . Scattered fecal material in a nondistended, nondilated colon. Occasional diverticulum. No divert iculitis. Nonspecific subcutaneous emphysema and stranding of the anterior right lower quadrant subcu fat. Cor relate clinically for possible previous injection. PELVIC CT: No mass, lymphadenopathy, free air, or free fluid. No lytic or blastic lesions in the osseous structures. IMPRESSION: No evidence of bowel obstruction. No obvious inflammatory changes of the small bowel or residual col on. POS: [facility]
== END 2018-05-03 12:00 | disposition home or self-care (01) ==
LOC: ERS 08:14
DX: R10.31 Right lower quadrant pain (principal); I10 Essential (primary) hypertension; F32.9 Major depressive disorder, single episode, unspecified; F41.9 Anxiety disorder, unspecified
CPT/HCPCS: 36415; 74177; 80053; 83690; 85025; 96374; 96375; J2270; J2405

== ENCOUNTER 2018-05-04 08:24 | Emergency (ER) | payer MEDICARE | END 2018-05-04 09:10 | disposition home or self-care (01) | LOC: ERS 08:24 | DX: K40.91 Unilateral inguinal hernia, without obstruction or gangrene, recurrent (principal); I10 Essential (primary) hypertension; F32.9 Major depressive disorder, single episode, unspecified; Z79.899 Other long term (current) drug therapy | CPT/HCPCS: 99283 ==

== ENCOUNTER 2018-05-11 14:56 | Outpatient (CLI) | payer OTHER | END 2018-05-11 14:57 | disposition home or self-care (01) | LOC: BICRAD 14:56 | PROVIDERS: ATTEND Internal Medicine | DX: Z02.71 Encounter for disability determination (principal) | CPT/HCPCS: 71046; 72100 ==

== ENCOUNTER 2018-08-24 04:04 | Emergency (ER) | payer MEDICARE ==
[2018-08-24] MEDS ORDERED: Dexamethasone 10 MG/ML VIAL ONE (06:02)
== END 2018-08-24 06:10 | disposition home or self-care (01) ==
LOC: ERS 04:04
DX: M54.9 Dorsalgia, unspecified (principal); I10 Essential (primary) hypertension; F32.9 Major depressive disorder, single episode, unspecified; F41.9 Anxiety disorder, unspecified
CPT/HCPCS: 99283; J1100

== ENCOUNTER 2019-02-20 03:47 | Emergency (ER) | payer MEDICARE ==
[2019-02-20] MEDS ORDERED: HYDROcodone/Acetaminophen 10/325 mg Tablet ONE (05:48)
[2019-02-20] MEDS ORDERED: Ibuprofen 800 MG TAB ONE (05:48)
== END 2019-02-20 05:51 | disposition home or self-care (01) ==
LOC: ERS 03:47
DX: G89.29 Other chronic pain (principal); M54.9 Dorsalgia, unspecified; I10 Essential (primary) hypertension; F32.9 Major depressive disorder, single episode, unspecified; F41.9 Anxiety disorder, unspecified; Z79.899 Other long term (current) drug therapy
CPT/HCPCS: 99283

== ENCOUNTER 2019-04-18 23:59 | Observation (INO) | payer MEDICARE ==
[2019-04-19] MEDS ORDERED: Ketorolac Tromethamine 30 MG/ML VIAL ONE (00:19)
[2019-04-19] MEDS ORDERED: Morphine 4 MG/ML VIAL ONE ×2 (00:19→01:54)
[2019-04-19] MEDS ORDERED: Ondansetron PF 4 MG/2 ML Vial ONE (00:46)
[2019-04-19 00:50] LABS: #Lymphocytes 1.2 thou/uL (1.20-3.40); #Monocytes 0.7 thou/uL (0.11-0.59); #Neutrophils 5.4 thou/uL (1.40-6.50); %Basophils 0.1 % (0.0-1.0); %Eosinophils 0.3 % (0.0-10.0); %Lymphocytes 16.6 % (21.0-51.0); %Monocytes 9.7 % (0.0-10.0); %Neutrophils 73.3 % (42.0-75.0); Hemoglobin 17.1 g/dL (14.0-18.0); Mean Corpuscular HGB CONC 35.8 g/dL (32.0-36.0); Mean Corpuscular Hemoglobin 31.1 pg (27.0-31.0); Mean Corpuscular Volume 87.1 fL (78.0-98.0); Platelet Count 248 thou/uL (130-400); RBC Distribution Width 12.4 % (11.5-14.5); Red Blood Cell (RBC) Count 5.49 mill/uL (4.70-6.10); White Blood Cell (WBC) Count 7.4 thou/uL (4.8-10.8)
[2019-04-19 01:10] LABS: Acetaminophen Less than 6.0 mcg/mL (10.0-30.0); Alcohol Less than 10 mg/dL (Less than 10); Salicylate Less than 8.0 mg/dL (15.0-30.0)
[2019-04-19 01:11] LABS: ALT (SGPT) 150 U/L (8-55); AST (SGOT) 46 U/L (5-34); Alkaline Phosphatase 169 U/L (40-150); Anion Gap 18 mmol/L (10-20); BUN (Urea Nitrogen) 19 mg/dL (8.9-20.6); Bilirubin, Total 1.3 mg/dL (0.2-1.2); Calc. Creatinine Clearance 0 mL/min (70-130); Calcium 11.2 mg/dL (7.8-10.44); Carbon Dioxide 21 mmol/L (22-29); Chloride 102 mmol/L (98-107); Estimated GFR-MDRD 85; Globulin 3.3 g/dL (2.4-3.5); Glucose 129 mg/dL (70-105); Lipase 8 U/L (8-78); Potassium 4.1 mmol/L (3.5-5.1); Protein, Total 8.3 g/dL (6.0-8.3); Sodium 137 mmol/L (136-145)
[2019-04-19 02:20] LABS: Amphetamine Not Detected (NotDetected); Bacteria/HPF None Seen HPF (None Seen); Barbiturates Screen Not Detected (NotDetected); Benzodiazepine Screen Detected (NotDetected); Bilirubin Negative (Negative); Blood, Urine Trace (Negative); Clarity Clear (Clear); Cocaine Metabolite Screen Not Detected (NotDetected); Glucose, Urine (Dipstick) Normal (Negative); Leukocyte Negative Leu/uL (Negative); Medtox Reader # READER 4; Methadone Not Detected (NotDetected); Methamphetamine Not Detected (NotDetected); Nitrite Negative (Negative); Opiate Screen Detected (NotDetected); Oxycodone Screen Detected (NotDetected); Phencyclidine (PCP) Not Detected (NotDetected); Protein, Urine (Dipstick) 70 mg/dL (Neg-Trace); RBC/HPF 0-3 HPF (0-3); Squamous Epithelial 0-3 HPF (0-3); THC/Cannabinoid Screen Not Detected (NotDetected); Tricyclic Screen Not Detected (NotDetected)
[2019-04-19 02:21] LABS: Medtox Control Line Valid? VALID (VALID)
[2019-04-19] MEDS ORDERED: cefTRIAXone\\ROCEPHIN 500 MG VIAL ONE (03:47)
[2019-04-19] MEDS ORDERED: diphenhydrAMINE 50 MG/ML VIAL ONE (03:47)
[2019-04-19] MEDS ORDERED: Metoclopramide HCl 10 MG/2 ML VIAL ONE (03:47)
[2019-04-19 04:25] LABS: Thyroid Stimulating Hormone 0.024 uIU/mL (0.35-4.94)
[2019-04-19 05:01] LABS: Free T4 (Free Thyroxine) 2.7 ng/dL (0.70-1.48)
[2019-04-19 06:07] VITALS: BMI 24.3
[2019-04-19] MEDS ORDERED: Sodium Chloride 0.45% 1,000 ML IV SCH (06:15)
[2019-04-19] MEDS ORDERED: Aspirin 325 MG TAB PO SCH (06:15)
[2019-04-19] MEDS: Morphine 2 MG/ML SYRINGE SLOW IVP PRN ×2 (06:29→10:15)
[2019-04-19 07:31] LABS: Troponin I 0.021 ng/mL (< 0.028)
[2019-04-19 07:34] LABS: ALT (SGPT) 117 U/L (8-55); AST (SGOT) 32 U/L (5-34); Albumin 4.4 g/dL (3.5-5.0); Alkaline Phosphatase 146 U/L (40-150); Anion Gap 15 mmol/L (10-20); BUN (Urea Nitrogen) 21 mg/dL (8.9-20.6); Bilirubin, Total 0.9 mg/dL (0.2-1.2); Calc. Creatinine Clearance 149 mL/min (70-130); Calcium 9.6 mg/dL (7.8-10.44); Carbon Dioxide 20 mmol/L (22-29); Chloride 109 mmol/L (98-107); Estimated GFR-MDRD Greater than 90; Globulin 2.5 g/dL (2.4-3.5); Glucose 107 mg/dL (70-105); Potassium 4.3 mmol/L (3.5-5.1); Protein, Total 6.9 g/dL (6.0-8.3); Sodium 140 mmol/L (136-145)
--- NOTE | 2019-04-19 08:59 | ULT ---
PRELIMINARY REPORT/[facility]/EMERGENCY AFTER HOURS PROCEDURE: EXAM: US Abdomen Limited, Right Upper Quadrant EXAM DATE/TIME: 04/19/2019 2:05 AM CLINICAL HISTORY: 43 years old, male; Pain and abnormal findings; Abnormal lab test; Elevated liver enzymes; Other: Cp; Prior surgery; Surgery date: 6+ months; Surgery type: Cholecystectomy TECHNIQUE: Imaging protocol: Real-time ultrasound of the abdomen with image documentation. Examination was focus ed on the right upper quadrant. COMPARISON: No relevant prior studies available. FINDINGS: Liver: No acute findings. No mass. Gallbladder: Prior cholecystectomy. Common bile duct: Measures up to 6.7mm in diameter. Pancreas: Limited visualization due to bowel gas. Right kidney: No acute findings. No mass. No hydronephrosis. IMPRESSION: No acute findings. Thank you for allowing us to participate in the care of your patient. Dictated and Authenticated by: Danie Carranza MD 04/19/2019 2:44 AM Central Time ([place] & [place]) FINAL REPORT RIGHT UPPER QUADRANT ULTRASOUND: Date: 04/19/19 CLINICAL HISTORY: Abdominal pain. FINDINGS/IMPRESSION: Final report is in agreement with the above provided preliminary interpretation from [facility]. Status post cholecystectomy, without acute process identified. POS: [facility]
--- NOTE | 2019-04-19 09:07 | CT ---
PRELIMINARY REPORT/[facility]/EMERGENCY AFTER HOURS PROCEDURE: EXAM: CT Angiography Chest With Contrast EXAM DATE/TIME: 04/19/2019 2:43 AM CLINICAL HISTORY: 43 years old, male; Acute; Patient HX: M43 presents to ED for chest pain. PT reports pain began aroun d 2pm, started intermittently and then became constant. Was given aspirin and nitro en route, some re lief. PT reports pain is in luq, radiates into left shoulder. PT denies abdominal pain, n/v/d. Denies drug or alcohol abuse. PT has never had similar chest pain before. PT has had spontaneous pneumothor aceies both sides. Hx- hbp; High cholesterol; Chrons disease, bowel resection in 1997; Gastritis; No HX of blood clots in lungs or legs; Family HX of heart disease, both mother and father, father had BACA in early 40s. TECHNIQUE: Imaging protocol: Computed tomographic angiography of the chest with intravenous contrast. 3D renderi ng: MIP reconstructed images were created and reviewed. COMPARISON: No relevant prior studies available. FINDINGS: Pulmonary arteries: No evidence of pulmonary embolism. Aorta: No acute findings. No aortic aneurysm or dissection. Lungs: No consolidation. No masses. Biapical wedge resection. Peripheral and linear atelectasis/scarr ing Pleural space: Bilateral pleural thickening with pleural/fissural nodularity on the right, somewhat h igh attenuation, likely related to prior pleurodesis. No pneumothorax. Heart: No cardiomegaly. No pericardial effusion. Lymph nodes: No significant adenopathy. Bones/joints: No acute fracture. Prior thoracotomy. Soft tissues: No acute findings. IMPRESSION: No acute findings. Postsurgical and pleurodesis changes described above. EXAM: CT Angiography Abdomen With Contrast EXAM DATE/TIME: 04/19/2019 2:43 AM CLINICAL HISTORY: 43 years old, male; Acute; Patient HX: M43 presents to ED for chest pain. PT reports pain began aroun d 2pm, started intermittently and then became constant. Was given aspirin and nitro en route, some re lief. PT reports pain is in luq, radiates into left shoulder. PT denies abdominal pain, n/v/d. Denies drug or alcohol abuse. PT has never had similar chest pain before. PT has had spontaneous pneumothor aceies both sides. Hx- hbp; High cholesterol; Chrons disease, bowel resection in 1997; Gastritis; No HX of blood clots in lungs or legs; Family HX of heart disease, both mother and father, father had BACA in early 40s. TECHNIQUE: Imaging protocol: Computed tomographic angiography images of the abdomen with intravenous contrast ma terial. 3D rendering: MIP reconstructed images were created and reviewed. COMPARISON: No relevant prior studies available. FINDINGS: VASCULATURE: Aorta: No acute findings. No aortic aneurysm. No aortic dissection. Celiac trunk and mesenteric arteries: No acute findings. No occlusion or significant stenosis. Renal arteries: No acute findings. No occlusion or significant stenosis. ABDOMEN: Liver: No acute findings. No mass. Gallbladder and bile ducts: Prior cholecystectomy. Pancreas: No acute findings. No ductal dilation. Spleen: No acute findings. No splenomegaly. Adrenals: No acute findings. No mass. Kidneys and ureters: No acute findings. No hydronephrosis. Stomach and bowel: Postsurgical changes. No evidence of bowel obstruction. Diverticulosis. Intraperitoneal space: No free air. No significant fluid collection. Bones/joints: No acute fracture. No dislocation. Soft tissues: No acute findings. Lymph nodes: No enlarged lymph nodes. IMPRESSION: No acute findings. Thank you for allowing us to participate in the care of your patient. Dictated and Authenticated by: Danie Carranza MD 04/19/2019 3:50 AM Central Time ([place] & [place]) FINAL REPORT CT ANGIO OF CHEST AND ABDOMEN PERFORMED WITH INTRAVENOUS CONTRAST ENHANCEMENT WITH 3D RECONSTRUCTIONS : HISTORY: Chest pain, pain radiating into left shoulder region. History of spontaneous pneumothoraces. The lorrie ngs are clear of any infiltrative process. There is some fissural nodularity noted on the right. Th ere are some chronic pleural changes noted in both lung mathew. This is probably related to patient' s history of pleurodesis. I do not see any acute infiltrative process. No pleural effusions. There is no significant mediastinal or hilar lymphadenopathy. The thoracic aorta is normal in calibe r. There are no signs of dissection. There is fairly good pulmonary artery opacification and I see no CT evidence for any central pulmonary embolus. CT ANGIO OF ABDOMEN PERFORMED WITH CONTRAST WITH 3D RECONSTRUCTIONS: A small hiatal hernia is noted. Gallbladder has been removed. The liver and spleen show no focal ab normalities. Right and left adrenal glands and right and left kidneys are normal in size. A small cyst is noted o n the left. No significant periaortic or mesenteric adenopathy. The aorta is normal in caliber. No dissection. IMPRESSION: 1. No evidence of aortic aneurysm or dissection. Postoperative changes of the lungs. 2. This report is in agreement with the temporary report issued by [facility]. POS: OFF
--- NOTE | 2019-04-19 09:14 | RAD ---
PORTABLE CHEST: HISTORY: Chest pain. COMPARISON: 11/04/2017 FINDINGS: Heart size and mediastinum are within normal limits. The lungs are clear of any infiltrative process . Surgical chain type sutures are noted in both upper lobes. IMPRESSION: Chronic lung change with postoperative changes of both lungs. No acute process. POS: OFF
[2019-04-19] MEDS ORDERED: Promethazine HCl 25 MG SUPP PR PRN (10:36)
[2019-04-19] MEDS ORDERED: Ondansetron ODT 4 MG TAB PO PRN (10:41)
[2019-04-19] MEDS ORDERED: Ondansetron PF 4 MG/2 ML Vial IVP PRN (10:41)
[2019-04-19] MEDS ORDERED: Sucralfate 1 GM TAB PO PRN (11:00)
[2019-04-19] MEDS ORDERED: SUMAtriptan Succinate 6 MG/0.5 ML VIAL SC PRN (11:47)
[2019-04-19] MEDS: ALPRAZolam 1 MG TAB PO PRN ×2 (12:03→22:12)
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
[2019-04-19] MEDS ORDERED: Regadenoson 0.4 MG/5 ML SYRINGE ONE (13:54)
[2019-04-19] MEDS: oxyCODONE/Acetaminophen 5 mg/325 mg Tablet PO PRN ×2 (14:52→21:35)
[2019-04-19] MEDS: Gabapentin 400 MG CAP PO SCH ×2 (14:53→20:38)
--- NOTE | 2019-04-19 15:10 | NM ---
EXAM: CARDIAC SPECT HISTORY: Chest pain, hypertension, dyslipidemia TECHNIQUE: A myocardial perfusion scan was performed using the single isotope 1 day protocol with carmen hnetium 99m sestamibi. [10 mCi] was injected intravenously for the rest exam followed by 30 mCi for the stress study. Pharmacologic stress with Lexiscan was monitored and interpreted by Dr. Patel FINDINGS: Homogeneous tracer distribution is seen in the myocardial segments on stress and rest image s without fixed or reversible defects. Gated SPECT LVEF: 62% Wall motion exam: Normal IMPRESSION: Normal myocardial perfusion scan
[2019-04-19] MEDS ORDERED: ISOVUE-370 76%-LOCM 1 ML ONE (15:23)
[2019-04-19] MEDS ORDERED: Prazosin HCl 1 MG CAP PO SCH (21:00)
[2019-04-19] MEDS ORDERED: Atorvastatin Calcium 10 MG TAB PO SCH (21:00)
[2019-04-19] MEDS ORDERED: Levothyroxine 150 MCG TAB PO SCH (23:45)
[2019-04-20 00:31] LABS: Anion Gap 17 mmol/L (10-20); BUN (Urea Nitrogen) 21 mg/dL (8.9-20.6); Calc. Creatinine Clearance 125 mL/min (70-130); Calcium 10.1 mg/dL (7.8-10.44); Carbon Dioxide 19 mmol/L (22-29); Chloride 107 mmol/L (98-107); Estimated GFR-MDRD Greater than 90; Glucose 141 mg/dL (70-105); Magnesium 1.8 mg/dL (1.6-2.6); Potassium 3.6 mmol/L (3.5-5.1); Sodium 139 mmol/L (136-145)
[2019-04-20] MEDS ORDERED: Temazepam 15 MG CAP PO PRN (00:38)
[2019-04-20] MEDS: oxyCODONE/Acetaminophen 5 mg/325 mg Tablet PO PRN ×2 (04:51→11:12)
[2019-04-20] MEDS: ALPRAZolam 1 MG TAB PO PRN ×2 (04:52→10:46)
[2019-04-20 05:25] LABS: #Lymphocytes 1.5 thou/uL (1.20-3.40); #Monocytes 0.7 thou/uL (0.11-0.59); #Neutrophils 3.7 thou/uL (1.40-6.50); %Basophils 0.3 % (0.0-1.0); %Eosinophils 0.7 % (0.0-10.0); %Lymphocytes 25.1 % (21.0-51.0); %Monocytes 11.4 % (0.0-10.0); %Neutrophils 62.5 % (42.0-75.0); Hemoglobin 15.6 g/dL (14.0-18.0); Mean Corpuscular HGB CONC 34.5 g/dL (32.0-36.0); Mean Corpuscular Hemoglobin 30.8 pg (27.0-31.0); Mean Corpuscular Volume 89.2 fL (78.0-98.0); Mean Platelet Volume 7.8 fL (7.4-10.4); Platelet Count 203 thou/uL (130-400); RBC Distribution Width 12.6 % (11.5-14.5); Red Blood Cell (RBC) Count 5.06 mill/uL (4.70-6.10); White Blood Cell (WBC) Count 5.9 thou/uL (4.8-10.8)
[2019-04-20 05:51] LABS: Anion Gap 17 mmol/L (10-20); BUN (Urea Nitrogen) 24 mg/dL (8.9-20.6); Calc. Creatinine Clearance 145 mL/min (70-130); Calcium 10.4 mg/dL (7.8-10.44); Carbon Dioxide 19 mmol/L (22-29); Cardiac Risk 5.5 (Less than 4.5); Chloride 107 mmol/L (98-107); Cholesterol 198 mg/dl (< 200 Desired); Estimated GFR-MDRD Greater than 90; Glucose 107 mg/dL (70-105); HDL Cholesterol 36 mg/dL (>60 Neg Risk); LDL Cholesterol, Calculated 132 mg/dL; Potassium 3.7 mmol/L (3.5-5.1); Sodium 139 mmol/L (136-145); Triglycerides 148 mg/dL (Less than 150)
[2019-04-20] MEDS ORDERED: Levothyroxine 150 MCG TAB PO SCH (06:00)
[2019-04-20 08:10] VITALS: BP 119/58; TEMP 97.5
[2019-04-20] MEDS ORDERED: Enoxaparin Sodium 40 MG/0.4 ML SYRINGE SC SCH ×2 (09:00)
[2019-04-20] MEDS ORDERED: Aspirin 81 mg Enteric Coated Tablet PO SCH (09:00)
[2019-04-20] MEDS ORDERED: Amlodipine 10 MG TAB PO SCH (09:00)
[2019-04-20] MEDS: Gabapentin 400 MG CAP PO SCH (09:38)
--- NOTE | 2019-04-20 14:54 | DIS ---
DATE OF ADMISSION: 04/19/2019 DATE OF DISCHARGE: 04/20/2019 DISCHARGE DISPOSITION: Home. PRIMARY DISCHARGE DIAGNOSIS: Atypical chest pain, noncardiac. SECONDARY DISCHARGE DIAGNOSES: History of Crohn's disease, hypertension, dyslipidemia, peptic ulcer disease, history of small-bowel resection for Crohn's , cholecystectomy. PROCEDURES DONE DURING HOSPITALIZATION: Chest x-ray done showed no acute process. Right upper quadrant ultrasound done showed no acute findings. There is a prior cholecystectomy seen. CBD was 6.7 mm in size. Right kidney showed no mass or hydronephrosis. CT aortic dissection protocol done showed no acute changes. Postsurgical pleurodesis changes were seen. No aortic dissection was seen. There is no aortic aneurysm. Nuclear stress test done showed ejection fraction of 62% with normal wall motion and normal myocardial perfusion scan. Blood cultures x2 , no growth. Urine culture, no growth. H and H of 15 and 45, platelet count 203, MCV is 89, white count of 5.9. D-dimer 0.3. Total cholesterol 198, triglycerides 148 , LDL 132, HDL 36. Troponin x3 negative. Urine drug screen was positive for opioids, oxycodone, and benzodiazepines. DISCHARGE MEDICATIONS: 1. Xanax 1 mg p.o. 4 times daily p.r.n. for anxiety. 2. Norvasc 10 mg daily. 3. Atorvastatin 10 mg daily. 4. Vitamin D3 of 5000 units p.o. daily. 5. Neurontin 1200 mg p.o. three times daily. 6. Levothyroxine 300 mcg p.o. daily. 7. Oxycodone 10/325 mg p.o. q.6 hourly p.r.n. 8. Prazosin 1 mg p.o. q.h.s. 9. Sucralfate 1 g p.o. three times daily p.r.n. 10. Sumatriptan p.r.n. 11. Protonix 40 mg p.o. daily. ALLERGIES: TO KETOROLAC, PENICILLIN, PROCHLORPERAZINE. DISCHARGE PLAN: The patient to follow up with his primary care physician in 1 week. BRIEF COURSE DURING HOSPITALIZATION: The patient initially came in with complaints of chest pain, shortness of breath, and diaphoresis. He was essentially placed under observation to rule out ACS. He has had 3 sets of troponin done, which are negative. Nuclear stress test done showed no reversible ischemia. CT dissection protocol and right upper quadrant ultrasound were all negative. He has remained hemodynamically stable. The patient's chest pain is likely chest wall pain. He is advised to follow up with his primary care physician in 1 week. Also the patient needs to have reduced dose of his levothyroxine and needs to follow up with his primary care physician. It is unclear if he had a recent increase in dose. Please note, I have seen and examined the patient on the day of discharge. Job ID: [id number] MTDD
--- NOTE | 2019-04-21 17:00 | EKG ---
Test Reason : Blood Pressure : / mmHG Vent. Rate : 146 BPM Atrial Rate : 146 BPM P-R Int : 128 ms QRS Dur : 072 ms QT Int : 332 ms P-R-T Axes : 084 106 051 degrees QTc Int : 517 ms Sinus tachycardia Possible Left atrial enlargement Possible Right ventricular hypertrophy Abnormal ECG Confirmed by ESTRELLITA HUANG ([id number]) on 04/21/2019 5:00:31 PM Referred By: Confirmed By:ESTRELLITA HUANG
--- NOTE | 2019-04-24 00:35 | EKG ---
Test Reason : Blood Pressure : / mmHG Vent. Rate : 150 BPM Atrial Rate : 150 BPM P-R Int : 120 ms QRS Dur : 074 ms QT Int : 274 ms P-R-T Axes : 059 111 029 degrees QTc Int : 432 ms Sinus tachycardia Right axis deviation Abnormal ECG Confirmed by DEANNE BRADSHAW ([id number]), associate entertainment editor BRYAN COLLAZO ([id number]) on 04/24/2019 12:35:12 AM Referred By: Confirmed By:DEANNE BRADSHAW
--- NOTE | 2019-04-26 13:05 | STRESS ---
Acquisition Time: 2019-04-19 13:24:44 Total Exercise Time: 00:01:00 Test Indications: CHEST PAIN Medications: Protocol: LEXISCAN Max HR: 155 BPM 86% of Pred: 179 BPM Max BP: 136/074 mmHG Max Work Load: 1.0 METS RESTING ECG: NORMAL SINUS RHYTHM AT 93 BPM SYMPTOMS: DYSPNEA AND CHEST PAIN NORMAL BP RESPONSE ECTOPY: NONE ECG STRESS: NO SIGNIFICANT CHANGES INTERPRETATION: AWAIT NUCLEAR IMAGES FOR DEFINITIVE DIAGNOSIS Confirmed by PAULINE MARTINEZ ([id number]), newspaper photo editor EILEEN ALBARRAN ([id number]) on 04/26/2019 1:05:03 PM Referred By: FOREST LUNA Confirmed By:PAULINE MARTINEZ
== END 2019-04-20 11:18 | disposition home or self-care (01) ==
LOC: ERS 23:59 → 2SW 04-19 04:18
PROVIDERS: ADMIT Hospitalist; ATTEND Hospitalist
DX: R07.89 Other chest pain (principal); I10 Essential (primary) hypertension; E78.5 Hyperlipidemia, unspecified; K50.90 Crohn's disease, unspecified, without complications; F41.9 Anxiety disorder, unspecified; E03.9 Hypothyroidism, unspecified; Z79.899 Other long term (current) drug therapy; Z88.0 Allergy status to penicillin; Z88.5 Allergy status to narcotic agent; Z88.8 Allergy status to other drugs, medicaments and biological substances; Z90.49 Acquired absence of other specified parts of digestive tract
CPT/HCPCS: 71045; 71275; 76705; 78452; 80048; 80061; 80306; 80307; 83690; 83735; 84439; 84484 ×2; 85025; 85379; 87040; 87086; 93005; 93017; 94760 ×2; 96361; 96365; 96375; 96376 ×2; 99285; A9500; G0378 ×3; 36415; 80053; 81003; 81015; 84443; 93010; J0696; J1200; J1650; J1885; J2270; J2405; J2765; J2785; Q9966

== ENCOUNTER 2019-05-11 20:11 | Emergency (ER) | payer MEDICARE | END 2019-05-11 20:54 | disposition home or self-care (01) | LOC: ERS 20:11 | DX: S61.212A Laceration without foreign body of right middle finger without damage to nail, initial encounter (principal); I10 Essential (primary) hypertension; E78.00 Pure hypercholesterolemia, unspecified; K50.90 Crohn's disease, unspecified, without complications; F41.9 Anxiety disorder, unspecified; F32.9 Major depressive disorder, single episode, unspecified; W26.9XXA Contact with unspecified sharp object(s), initial encounter | CPT/HCPCS: 99282 ==

== ENCOUNTER 2020-07-01 17:08 | Emergency (ER) | payer MEDICARE ==
[2020-07-02 05:32] LABS: SARS-CoV-2 MS2 Positive; SARS-CoV-2 N Gene Negative; SARS-CoV-2 S Gene Negative; SARS-CoV-2 by NAA Not Detected (NotDetected); SARS-CoV-2 orf1ab Negative
== END 2020-07-01 17:41 | disposition home or self-care (01) ==
LOC: ERS 17:08
DX: R53.81 Other malaise (principal); R68.83 Chills (without fever); Z20.828 Contact with and (suspected) exposure to other viral communicable diseases; I10 Essential (primary) hypertension; E78.5 Hyperlipidemia, unspecified; F41.9 Anxiety disorder, unspecified; F32.9 Major depressive disorder, single episode, unspecified
CPT/HCPCS: 99283; U0003; 87635

== ENCOUNTER 2020-07-13 23:21 | Observation (INO) | payer MEDICARE ==
[2020-07-14 00:30] LABS: #Eosinphils 0.1 thou/uL (0.0-0.7); #Lymphocytes 1.6 thou/uL (1.20-3.40); #Monocytes 0.3 thou/uL (0.11-0.59); #Neutrophils 4.1 thou/uL (1.40-6.50); %Basophils 0.7 % (0.0-1.0); %Eosinophils 1.2 % (0.0-10.0); %Lymphocytes 26.9 % (21.0-51.0); %Monocytes 4.5 % (0.0-10.0); %Neutrophils 66.8 % (42.0-75.0); Hemoglobin 14.2 g/dL (14.0-18.0); Mean Corpuscular HGB CONC 32.1 g/dL (32.0-36.0); Mean Corpuscular Volume 87.2 fL (78.0-98.0); Mean Platelet Volume 8.6 fL (7.4-10.4); Platelet Count 171 thou/uL (130-400); RBC Distribution Width 12.4 % (11.5-14.5); Red Blood Cell (RBC) Count 5.08 mill/uL (4.70-6.10); White Blood Cell (WBC) Count 6.1 thou/uL (4.8-10.8)
[2020-07-14 00:46] LABS: ALT (SGPT) 60 U/L (8-55); AST (SGOT) 24 U/L (5-34); Alkaline Phosphatase 142 U/L (40-110); Anion Gap 17 mmol/L (10-20); BUN (Urea Nitrogen) 15 mg/dL (8.9-20.6); Bilirubin, Total 0.4 mg/dL (0.2-1.2); Calc. Creatinine Clearance 0 mL/min (70-130); Calcium 8.9 mg/dL (7.8-10.44); Carbon Dioxide 20 mmol/L (22-29); Chloride 106 mmol/L (98-107); Estimated GFR-MDRD 68; Globulin 2.7 g/dL (2.4-3.5); Glucose 188 mg/dL (70-105); Lipase 27 U/L (8-78); Potassium 3.7 mmol/L (3.5-5.1); Protein, Total 6.7 g/dL (6.0-8.3); Sodium 139 mmol/L (136-145)
[2020-07-14] MEDS ORDERED: Morphine 4 MG/ML VIAL ONE ×2 (00:50→01:37)
[2020-07-14] MEDS ORDERED: Ondansetron PF 4 MG/2 ML Vial ONE (01:37)
[2020-07-14] MEDS ORDERED: HYDROmorphone 0.5 MG/0.5 ML SYRINGE ONE (03:02)
[2020-07-14] MEDS ORDERED: Acetaminophen 325 MG TAB PO PRN (03:36)
[2020-07-14] MEDS ORDERED: Calcium Carbonate 500 MG ChewTAB PO PRN (03:36)
[2020-07-14] MEDS ORDERED: Guaifenesin DM 100-10/5 ML UDCUP PO PRN (03:36)
[2020-07-14] MEDS ORDERED: Ondansetron PF 4 MG/2 ML Vial IVP PRN (03:36)
[2020-07-14] MEDS ORDERED: HYDROcodone/Acetaminophen 7.5/325 mg Tablet PO PRN ×2 (03:36)
[2020-07-14] MEDS ORDERED: Acetaminophen 650 MG Suppository PR PRN (03:36)
[2020-07-14] MEDS ORDERED: Ondansetron ODT 4 MG TAB PO PRN (03:36)
--- NOTE | 2020-07-14 03:46 | PDOC.HHP ---
Hospitalist HPI - History of Present Illness neck/ chest pain History of Present Illness: Case of an 44y/o male with pmhx of htn, hypothyroidism, chrons, hld and hx of multiple spontaneous pneumothorax that comes to hospital due to R sided chest pain. patient states he has history of lung blebs that occasionally rupture and has had multiple surgical interventions for this. he reports awoke with pain this morning and went to [facility] ED for evaluation. States that CXR was performed and thoracic surgery consulted who recommended conservative management and pain management and patient was discharge home. patient refers pain meds given where not enough and he feels his symptoms worsening for which he decided to come to hospital for evaluation. Here patient had a CT which showed considerable diffused subcutaneous emphysema and R sided pneumothorax. Cardiothoraxic and nuerosurgeon where called for evaluation and both recommended conservative treatment and pain management. hospitalist was called for admission Hospitalist ROS - Review of Systems All other systems reviewed; all pertinent +/- noted in HPI/Subj Hospitalist History - Past Surgical History Past Surgical History: reports: Appendectomy, Cholecystectomy Other Surgical History: thoracostomy x 6 bowel resection x 2 - Exam General Appearance: NAD, awake alert Eye: PERRL, anicteric sclera ENT: normocephalic atraumatic, no oropharyngeal lesions Neck: supple, symmetric, no JVD, no thyromegaly Heart: RRR, no murmur, no gallops, no rubs Respiratory: CTAB, no wheezes, no rales Respiratory - other findings: exptensive subcutaneous emphysema Gastrointestinal: soft, non-tender, non-distended Extremities: no cyanosis, no clubbing, no edema Skin: normal turgor, no lesions, no rashes Neurological: cranial nerve grossly intact, normal sensation to touch, no weakness Musculoskeletal: normal tone, normal strength, no muscle wasting Psychiatric: normal affect, normal behavior, A&O x 3 Hospitalist Results - Labs Result Diagrams: 07/14/20 00:20 07/14/20 00:20 Lab results: WBC 6.1 thou/uL (4.8-10.8) 07/14/20 00:20 Hgb 14.2 g/dL (14.0-18.0) 07/14/20 00:20 Hct 44.3 % (42.0-52.0) 07/14/20 00:20 MCV 87.2 fL (78.0-98.0) 07/14/20 00:20 Plt Count 171 thou/uL (130-400) 07/14/20 00:20 Neutrophils % 66.8 % (42.0-75.0) 07/14/20 00:20 Sodium 139 mmol/L (136-145) 07/14/20 00:20 Potassium 3.7 mmol/L (3.5-5.1) 07/14/20 00:20 Chloride 106 mmol/L (98-107) 07/14/20 00:20 Carbon Dioxide 20 mmol/L (22-29) L 07/14/20 00:20 BUN 15 mg/dL (8.9-20.6) 07/14/20 00:20 Creatinine 1.17 mg/dL (0.7-1.3) 07/14/20 00:20 Glucose 188 mg/dL (70-105) H 07/14/20 00:20 Calcium 8.9 mg/dL (7.8-10.44) 07/14/20 00:20 Total Bilirubin 0.4 mg/dL (0.2-1.2) 07/14/20 00:20 AST 24 U/L (5-34) 07/14/20 00:20 ALT 60 U/L (8-55) H 07/14/20 00:20 Alkaline Phosphatase 142 U/L (40-110) H 07/14/20 00:20 Troponin I 0.010 ng/mL (< 0.028) 07/14/20 00:20 Serum Total Protein 6.7 g/dL (6.0-8.3) 07/14/20 00:20 Albumin 4.0 g/dL (3.5-5.0) 07/14/20 00:20 Lipase 27 U/L (8-78) 07/14/20 00:20 Hospitalist H&P A/P - Problem (1) Pneumothorax Code(s): J93.9 - PNEUMOTHORAX, UNSPECIFIED Status: Acute (2) Subcutaneous emphysema Code(s): T79.7XXA - TRAUMATIC SUBCUTANEOUS EMPHYSEMA, INITIAL ENCOUNTER Status: Acute (3) Crohns disease Code(s): K50.90 - CROHN'S DISEASE, UNSPECIFIED, WITHOUT COMPLICATIONS Status: Chronic (4) HTN (hypertension) Code(s): I10 - ESSENTIAL (PRIMARY) HYPERTENSION Status: Chronic (5) Hypothyroidism Code(s): E03.9 - HYPOTHYROIDISM, UNSPECIFIED Status: Acute - Plan Plan: 44y/o male with the stated pmhx who presents to hospital due to pneumothorax with extensive subcutaneous emphysema pneumothorax / subcutaneoys emphysema - ct consistent with pneumothorax with considerable subcutaneous emphysema - 02 supplementation - pain management - cardiothoraxic and neruro surgeon recommended conservative tx htn / hld / hypothyroidism - continue home meds
[2020-07-14 04:32] VITALS: BMI 28.4
--- NOTE | 2020-07-14 07:36 | CT ---
PRELIMINARY REPORT/[facility]/EMERGENCY AFTER HOURS PROCEDURE Receipt of this report by the clinical staff was confirmed with Isabel Jang RN by Lakeshia Simons on Jul 14, 2020 01:26:00 EQUIPMENT SCHEDULER. Addendum electronically signed by Lakeshia Simons on July 14, 2020 1:26:01 AM EQUIPMENT SCHEDULER EXAM: CT Chest Without Intravenous Contrast. CLINICAL HISTORY: Ordering provider requested acquisition extending into neck. Pt reports right sided chest pain radia ting into shoulder since waking this AM. He has history of lung blebs that occasionally rupture and he has had multiple surgical interventions for complications related to the blebs. TECHNIQUE: Axial computed tomography images of the chest without intravenous contrast. COMPARISON: None provided. FINDINGS: LUNGS: Postsurgical appearance of the lung apices. No focal consolidation. No clinically significant pulmonary nodules. No pulmonary interstitial emphysema near the amari. Small right-sided pneumothorax best appreciated at the anterior right lung base. PLEURAL SPACES: No pleural effusion. No pneumothorax. HEART AND MEDIASTINUM: Extensive mediastinal emphysema surrounding the azygous vein extending into the lower posterior media stinum predominately extending up into the neck and right chest wall. Subcutaneous emphysema also extends along the course of the right vertebral artery entering the vertebral foramen of C6 resulting in right lateral and posterior lateral epidural free air visualized at the level of C4-T1. LYMPH NODES: Small right major and minor fissure lymph nodes. CHEST WALL AND UPPER ABDOMEN: Surgically absent gallbladder. Postoperative left chest wall. BONES: No acute fracture. IMPRESSION: 1. Extensive mediastinal emphysema extending into the soft tissues of the neck and right chest wall/a xilla with additional free air visualized in the epidural space at C1-4 secondary to air density tracking along the right vertebral artery with details above. 2. Small right-sided pneumothorax best appreciated at the anterior right lung base. Likely the [facility] e of this mediastinal and subcutaneous emphysema ELECTRONICALLY SIGNED BY: Pepito Nichole DO Jul 14, 2020 1:04:03 AM EQUIPMENT SCHEDULER This report is intended for review by the ordering physician only, in accordance of law. If you recei ve this report in error, please call [facility] at [phone]. FINAL REPORT Final interpretation Chest CT without contrast: 07/14/2020 COMPARISON: 09/25/2012. HISTORY: Right-sided chest pain. FINDINGS: Evaluation of the viscera, vascular structures, and for lymphadenopathy is suboptimal without contras t media. There is extensive subcutaneous emphysema throughout the imaged neck extending into the chest wall, r ight greater than left, with extensive subcutaneous gas seen to the axial level of the upper abdomen. There is posterior right-sided epidural gas within the upper and mid cervical spine. There i s extensive pneumomediastinum. There is a probable tiny right-sided pneumothorax. No definitive left-sided pneumothorax. There is suture material seen involving bilateral lung apices. Imaged upper abdomen demonstrates cholecystectomy clips. There are increased linear interstitial densities noted within bilateral lung apices suggesting areas of scar. Small nodular densities are seen within the region of the interlobar fissures on the right suggesting small intrapulmonary nodes. Stable pleural-based nodular density in the right middle lobe anteriorly on image 54. No suspicious pulmonary parenchymal mass lesion/nodule noted. Review of the osseous structures demonstrates no acute findings. IMPRESSION: Extensive subcutaneous emphysema and pneumomediastinum with probable tiny right-sided pneumothorax. Code QA Transcribed Date/Time: 07/14/2020 8:42 AM
--- NOTE | 2020-07-14 08:26 | CT ---
PRELIMINARY REPORT/[facility]/EMERGENCY AFTER HOURS PROCEDURE EXAM: CT Head Without Intravenous Contrast. CLINICAL HISTORY: PT HAS SIGNS OF EXCESSIVE SUBCUTANEOUS EMPHYSEMA. R/O FREE AIR IN HEAD/BRAIN. TECHNIQUE: Axial computed tomography images of the head/brain without intravenous contrast. COMPARISON: CT - CT CHEST WO CON - 07/14/2020 12:41 AM IT SECURITY ANALYST FINDINGS: BRAIN: No acute intraparenchymal hemorrhage. No mass lesion. No CT evidence for acute territorial infarct. N o midline shift or extra-axial collection. VENTRICLES: No hydrocephalus. ORBITS: The orbits are unremarkable. SINUSES AND MASTOIDS: The paranasal sinuses and mastoid air cells are clear. SOFT TISSUES: Free air in the posterior soft tissues of the neck and left research librarian space extending into the tempo ralis fascia. BONES: No acute skull fracture. IMPRESSION: 1. No acute intracranial abnormality or evidence of intracranial air. 2. Free air in the posterior soft tissues of the neck and left research librarian space extending into the te mporalis fascia. ELECTRONICALLY SIGNED BY: Pepito Nichole DO Jul 14, 2020 2:01:26 AM IT SECURITY ANALYST This report is intended for review by the ordering physician only, in accordance of law. If you recei ve this report in error, please call [facility] at [phone]. FINAL REPORT Final interpretation Head CT without contrast: 07/14/2020 COMPARISON: 05/12/2016 HISTORY: Evaluate extent of subcutaneous gas. FINDINGS: There is subcutaneous emphysema within the scalp laterally on the left. There is gas within the research librarian space on the left and in the region of bilateral temporomandibular joints. Bilateral posterior subcutaneous emphysema involves the scalp. The imaged paranasal sinuses and masto id air cells are well-aerated. There is no displaced calvarial fracture, intracranial hemorrhage, midline shift, or mass effect. No intracranial pneumocephalus. IMPRESSION: No intracranial hemorrhage or pneumocephalus. Subcutaneous gas as above. Code QA Transcribed Date/Time: 07/14/2020 8:44 AM
--- NOTE | 2020-07-14 10:11 | RAD ---
PORTABLE CHEST 1 VIEW: Date: 07/14/2020 Time: 0052 hours HISTORY: Difficulty breathing. FINDINGS/IMPRESSION: The heart size is normal. The lungs are well expanded without lobar consolidation, definite pneumotho races, or pleural effusions. There is subcutaneous emphysema in the right lateral chest and lower nec k on both sides (right greater than left). POS: MZA
[2020-07-14] MEDS: Morphine 2 MG/ML VIAL SLOW IVP PRN ×2 (11:45→15:52)
[2020-07-14 16:23] LABS: SARS-CoV-2 MS2 Positive; SARS-CoV-2 N Gene Negative; SARS-CoV-2 S Gene Negative; SARS-CoV-2 by NAA Not Detected (NotDetected); SARS-CoV-2 orf1ab Negative
--- NOTE | 2020-07-14 16:36 | PDOC.HOSPP ---
- Subjective Encounter Date: 07/14/20 Encounter Time: 11:45 Subjective: Patient up in bed complains of significant pain to his right chest and right shoulder. - Objective Vital Signs & Weight: Vital Signs (12 hours) Temp Pulse Resp BP Pulse Ox 07/14/20 11:40 98.2 F 88 21 H 106/62 91 L 07/14/20 07:36 98.2 F 80 20 109/56 L 95 Weight Weight 215 lb 8 oz I&O: 07/13/20 07/14/20 07/15/20 06:59 06:59 06:59 Intake Total 240 Output Total 0 Balance 240 Result Diagrams: 07/14/20 00:20 07/14/20 00:20 Hospitalist ROS - Review of Systems Respiratory: reports: shortness of breath Cardiovascular: reports: chest pain Gastrointestinal: denies: nausea, vomiting, abdominal pain, diarrhea, constipation, melena, hematochezia, other Genitourinary: denies: dysuria, frequency, incontinence, hematuria, retention, other - Medication Medications: Active Medications Generic Name Dose Route Start Last Admin Trade Name Freq PRN Reason Stop Dose Admin Hydrocodone Bitart/Acetaminophen 2 tab 07/14/20 03:36 07/14/20 08:04 Hydrocodone/Acetaminophen 7.5/325 Mg Tablet PO 2 tab Q4H PRN Administration Severe Pain (7-10) Morphine Sulfate 2 mg 07/14/20 03:48 07/14/20 15:52 Morphine 2 Mg/Ml Vial SLOW IVP 2 mg Q4H PRN Administration 7-10 pain - Exam Neck - other findings: Significant subcutaneous crackles felt underneath the skin. Heart: negative: RRR, no murmur, no gallops, no rubs, normal peripheral pulses, irregular, diminshed peripheral pulses, murmur present, II/IV, III/IV Respiratory: negative: CTAB, no wheezes, no rales, no ronchi, normal chest expansion, no tachypnea, normal percussion, rales, rhonchi, tachypneic, wheezes Gastrointestinal: negative: soft, non-tender, non-distended, normal bowel sounds, no palpable masses, no hepatomegaly, no splenomegaly, no bruit, no guarding, no rigidity, tender to palpation, distended, diminished bowl sounds, voluntary guarding Extremities: negative: no cyanosis, no clubbing, no edema, 1+ LE edema, 2+ LE edema, clubbing Hosp A/P (1) Hypothyroidism Code(s): E03.9 - HYPOTHYROIDISM, UNSPECIFIED Status: Acute (2) Pneumothorax Code(s): J93.9 - PNEUMOTHORAX, UNSPECIFIED Status: Acute (3) Subcutaneous emphysema Code(s): T79.7XXA - TRAUMATIC SUBCUTANEOUS EMPHYSEMA, INITIAL ENCOUNTER Status: Acute (4) HTN (hypertension) Code(s): I10 - ESSENTIAL (PRIMARY) HYPERTENSION Status: Chronic (5) Crohns disease Code(s): K50.90 - CROHN'S DISEASE, UNSPECIFIED, WITHOUT COMPLICATIONS Status: Chronic (6) Nahed's thyroiditis Code(s): E06.3 - AUTOIMMUNE THYROIDITIS Status: Chronic - Plan Patient has significant pain around his chest area. Patient states that he has had over 30 pneumothoraxes. I will check an alpha 1 antitrypsin. Patient states that he has had multiple thoracoscopy. We will get anesthesia for pain control since patient states that he is having significant pain on his right chest wall and the morphine is just not lasting long.
[2020-07-14] MEDS ORDERED: HYDROcodone/Acetaminophen 10/325 mg Tablet PO PRN (16:39)
[2020-07-14] MEDS ORDERED: Temazepam 15 MG CAP PO PRN (16:39)
[2020-07-14] MEDS ORDERED: ALPRAZolam 1 MG TAB PO PRN (16:39)
[2020-07-14] MEDS ORDERED: Promethazine HCl 25 MG SUPP PR PRN (16:39)
[2020-07-14] MEDS ORDERED: fentaNYL Citrate/PF 2,000 MCG in Sodium Chloride 0.9% 60 ML IV PRN (17:00)
[2020-07-14] MEDS ORDERED: Naloxone HCl 0.4 mg/ml Vial IV PRN (17:00)
[2020-07-14] MEDS: SUMAtriptan Succinate 6 MG/0.5 ML VIAL SC PRN (18:05)
[2020-07-14] MEDS ORDERED: Prazosin HCl 1 MG CAP PO SCH (21:00)
[2020-07-14] MEDS ORDERED: Atorvastatin Calcium 20 MG TAB PO SCH (21:00)
[2020-07-14] MEDS: Pregabalin 50 MG CAP PO SCH (21:45)
[2020-07-14] MEDS ORDERED: Ibuprofen 800 MG TAB PO SCH (21:45)
[2020-07-14] MEDS: Morphine 4 MG/ML VIAL SLOW IVP PRN (23:23)
[2020-07-15] MEDS ORDERED: Promethazine HCl 25 MG in Sodium Chloride 0.9% 50 ML IVPB PRN (02:20)
[2020-07-15] MEDS: SUMAtriptan Succinate 6 MG/0.5 ML VIAL SC PRN (02:36)
[2020-07-15] MEDS ORDERED: Promethazine 25 MG TAB PO PRN (03:30)
[2020-07-15] MEDS: Morphine 4 MG/ML VIAL SLOW IVP PRN ×2 (05:04→09:41)
[2020-07-15 05:05] LABS: Band 3 % (5-11); Hemoglobin 14.6 g/dL (14.0-18.0); Lymphocytes 13 % (21-51); MDiff Complete? YES; Mean Corpuscular HGB CONC 33.7 g/dL (32.0-36.0); Mean Corpuscular Hemoglobin 29.6 pg (27.0-31.0); Mean Platelet Volume 8.5 fL (7.4-10.4); Monocytes 7 % (0-10); Neutrophil 77 % (42-75); Platelet Count 173 thou/uL (130-400); Platelet Morphology Comment Appears Adequate; RBC Distribution Width 12.2 % (11.5-14.5); RBC Morphology Normal; Red Blood Cell (RBC) Count 4.92 mill/uL (4.70-6.10); White Blood Cell (WBC) Count 4.9 thou/uL (4.8-10.8)
[2020-07-15 05:09] LABS: ALT (SGPT) 170 U/L (8-55); AST (SGOT) 164 U/L (5-34); Alkaline Phosphatase 201 U/L (40-110); Anion Gap 15 mmol/L (10-20); BUN (Urea Nitrogen) 13 mg/dL (8.9-20.6); Bilirubin, Total 1.1 mg/dL (0.2-1.2); Calc. Creatinine Clearance 145 mL/min (70-130); Carbon Dioxide 23 mmol/L (22-29); Chloride 103 mmol/L (98-107); Estimated GFR-MDRD Greater than 90; Globulin 2.9 g/dL (2.4-3.5); Glucose 100 mg/dL (70-105); Potassium 4.4 mmol/L (3.5-5.1); Protein, Total 6.9 g/dL (6.0-8.3); Sodium 137 mmol/L (136-145)
[2020-07-15] MEDS ORDERED: Levothyroxine 150 MCG TAB PO SCH (06:00)
[2020-07-15] MEDS: Pregabalin 50 MG CAP PO SCH (08:19)
[2020-07-15] MEDS ORDERED: Amlodipine 10 MG TAB PO SCH (09:00)
[2020-07-15] MEDS ORDERED: FLUoxetine HCl 20 MG CAP PO SCH (09:00)
[2020-07-15 12:47] VITALS: BP 148/74; TEMP 98.2
--- NOTE | 2020-07-15 18:53 | DIS ---
DATE OF ADMISSION: 07/14/2020 DATE OF DISCHARGE: 07/15/2020 DISCHARGE DIAGNOSES: As of the following; 1. Pneumothorax. 2. Hypothyroidism. 3. Subcutaneous emphysema. 4. Hypertension. 5. Crohn's disease. 6. Nahed's thyroiditis. HOSPITAL COURSE: The patient is a 44-year-old male who initially presented to the hospital with complaints of right-sided chest pain radiating into the shoulder. The patient apparently went to [place] and [place] initially and he was evaluated in the ED. Based on the chest x-ray, also Cardiothoracic Surgery consult was placed who recommended conservative management given the amount of subcutaneous tissue. The patient at this time was discharged home; however, he came back to [facility] ER for worsening pain, especially on movement. He has had a history of multiple pneumothoraxes and has had thoracoscopy and pleurodesis. He has had pleurodesis of the right lung recently. The patient at this time was evaluated by CV Surgery and Neurosurgery, who recommended no intervention. Anesthesia was consulted and patient was initially put on a fentanyl CLINICAL INFORMATICIST, however, this was discontinued since he started having headaches. The patient was just treated with IV morphine. I did speak with the CV surgeon, who recommended no further intervention and to discharge the patient. The patient had a CT chest that indicated extensive mediastinal emphysema extending into the soft tissues of the neck and the right chest wall, axilla, and epidural space. Small right-sided pneumothorax was noted. The patient's pain improved a little and at this time, he was discharged home. He will follow up with primary and also I have recommended him to follow up with the CV Surgery which he had initially followed up at [place]. He also had a CT brain here, which did not show any acute abnormalities. No acute intracranial abnormalities were noted or subcutaneous gas or pneumocephalus was noted; none of that was noted. MEDICATIONS: Patient's home medications will be resumed. He is going to be on Imitrex 6 mg as needed, prazosin 1 mg at bedtime, atorvastatin 20 mg at bedtime, levothyroxine 150 mcg daily, alprazolam 1 mg daily p.r.n., Norvasc 10 mg daily, Lyrica 200 mg b.i.d., metoprolol 50 mg daily, temazepam 30 mg at bedtime, and Prozac 80 mg daily. PHYSICAL EXAMINATION: VITAL SIGNS: On discharge, temperature of 98.2, heart rate 79, respiratory rate 20, sats 95% on room air, blood pressure 148/74. GENERAL: He is awake, alert, and oriented x4. Does not appear in distress. CV: S1, S2 present. No murmurs, rubs, or gallops. He continues to have subcutaneous crackles. Again, he will be discharged home. Follow up with his primary and also CV Surgery as outpatient. Job ID: [id number]
== END 2020-07-15 14:10 | disposition home or self-care (01) ==
LOC: ERS 23:21 → 2NO 07-14 02:27 → UNDOADMOB 07-14 02:28 → 2NO 07-14 02:28
PROVIDERS: ADMIT Internal Medicine; ATTEND Internal Medicine
DX: J93.9 Pneumothorax, unspecified (principal); T79.7XXA Traumatic subcutaneous emphysema, initial encounter; I10 Essential (primary) hypertension; K50.90 Crohn's disease, unspecified, without complications; E78.5 Hyperlipidemia, unspecified; E06.3 Autoimmune thyroiditis; E03.9 Hypothyroidism, unspecified; Z20.828 Contact with and (suspected) exposure to other viral communicable diseases; Z79.899 Other long term (current) drug therapy; Z88.0 Allergy status to penicillin; Z88.6 Allergy status to analgesic agent; Z88.8 Allergy status to other drugs, medicaments and biological substances
CPT/HCPCS: 70450; 71045; 71250; 80053 ×2; 82103; 83690; 84484; 85007; 85025; 85027; 93005; 96372; 96374; 96375; 99285; J2270; J3010; U0003; 36415; 87635; 96376; G0378; J1170; J2405; J2550; J3030; J3490; Q0169

== ENCOUNTER 2020-07-22 13:09 | Inpatient (IN) | payer MEDICARE ==
[~2020-07-22 13:09] MED LIST changes: -ISOVUE-370 76%-LOCM 1 ML ONE; +Iopamidol-370 76% 500 ML 1 ML ONE
[2020-07-22] MEDS ORDERED: Morphine 4 MG/ML VIAL ONE ×2 (13:33→14:33)
--- NOTE | 2020-07-22 13:38 | RAD ---
AP CHEST: Date: 07/22/2020 INDICATION: Shortness of breath. Chest pain. COMPARISON: 07/14/2020. FINDINGS: Diffuse subcutaneous emphysema and pneumomediastinum again noted, similar to the prior exam. Postoper ative suture in the left apical region. No evidence of significant pneumothorax. Lungs show mild vasc ular and interstitial prominence, which appears stable. IMPRESSION: Subcutaneous emphysema and pneumomediastinum again noted. The subcutaneous emphysema is more pronounc ed than on the prior study. Lungs do not appear significantly changed. POS: AGW
[2020-07-22 13:47] LABS: #Basophils 0.1 thou/uL (0.0-0.2); #Eosinphils 0.1 thou/uL (0.0-0.7); #Lymphocytes 1.9 thou/uL (1.20-3.40); #Monocytes 0.4 thou/uL (0.11-0.59); #Neutrophils 3.9 thou/uL (1.40-6.50); %Basophils 1.2 % (0.0-1.0); %Eosinophils 1.4 % (0.0-10.0); %Lymphocytes 30.3 % (21.0-51.0); %Monocytes 5.6 % (0.0-10.0); %Neutrophils 61.5 % (42.0-75.0); Hemoglobin 15.7 g/dL (14.0-18.0); Mean Corpuscular HGB CONC 34.4 g/dL (32.0-36.0); Mean Corpuscular Hemoglobin 30.8 pg (27.0-31.0); Mean Corpuscular Volume 89.5 fL (78.0-98.0); Mean Platelet Volume 8.2 fL (7.4-10.4); Platelet Count 185 thou/uL (130-400); RBC Distribution Width 12.6 % (11.5-14.5); Red Blood Cell (RBC) Count 5.11 mill/uL (4.70-6.10); White Blood Cell (WBC) Count 6.3 thou/uL (4.8-10.8)
[2020-07-22 13:54] LABS: INR-International Normal Ratio 0.9; PTT 28.9 sec (22.9-36.1); Prothrombin Time 12.8 sec (12.0-14.7)
[2020-07-22 13:55] LABS: D-Dimer Test 1.24 *mcg/mL (0.27-0.43)
[2020-07-22 14:13] LABS: ALT (SGPT) 85 U/L (8-55); AST (SGOT) 32 U/L (5-34); Albumin 4.7 g/dL (3.5-5.0); Alkaline Phosphatase 211 U/L (40-110); Anion Gap 20 mmol/L (10-20); BUN (Urea Nitrogen) 20 mg/dL (8.9-20.6); Bilirubin, Total 0.6 mg/dL (0.2-1.2); Calc. Creatinine Clearance 0 mL/min (70-130); Calcium 9.4 mg/dL (7.8-10.44); Carbon Dioxide 23 mmol/L (22-29); Chloride 104 mmol/L (98-107); Globulin 2.9 g/dL (2.4-3.5); Glucose 107 mg/dL (70-105); Potassium 4.5 mmol/L (3.5-5.1); Protein, Total 7.6 g/dL (6.0-8.3); Sodium 142 mmol/L (136-145)
[2020-07-22] MEDS ORDERED: Ketorolac Tromethamine 30 MG/ML VIAL ONE (16:27)
[2020-07-22] MEDS ORDERED: Ibuprofen 800 MG TAB ONE (16:32)
--- NOTE | 2020-07-22 17:10 | CT ---
Exam: CT angiogram of the chest HISTORY: Chest pain. History of multiple pneumothoraces and pneumomediastinum in the past. COMPARISON: None TECHNIQUE: CT angiogram of the chest is performed in the axial plane. Three-dimensional reformatted i mages are submitted for interpretation FINDINGS: Mediastinum: No mass, lymphadenopathy or hematoma. There is evidence of pneumomediastinum. HEART: Normal size. No significant pericardial fluid. Aorta: No aneurysm or dissection Upper solid abdominal viscera: No abnormality enhancement. Trachea and central bronchi: Patent Pleural spaces: No effusion Lung parenchyma: No masses or consolidation. Pneumothorax: Small bilateral pneumothoraces are identified. Soft tissue structures: There is extensive subcutaneous emphysema involving the lower neck and chest as well as the abdominal soft tissues. Osseous structures: No lytic or blastic lesions Pulmonary arteries: Adequate contrast opacification pulmonary arterial system to the level of segment al arteries. No filling defect to suggest pulmonary embolism IMPRESSION: 1. No evidence of pulmonary artery embolism to the level of segmental arteries 2. Extensive multispatial/multicompartmental air. There is evidence of subcutaneous emphysema, pneumo mediastinum as well as small bilateral pneumothoraces. Results study discussed with Dr. Fernandes 07/22/2020 5:07 PM Code CR
--- NOTE | 2020-07-22 17:12 | CT ---
EXAM: Abdomen and pelvic CT scan with contrast: HISTORY: Abdominal pain, subcutaneous air, history of prior pneumomediastinum COMPARISON: None FINDINGS: Lungs:Evidence of very extensive pneumomediastinum and extensive subcutaneous emphysema. No grey pne umothorax is demonstrated although the chest is incompletely seen. Small hiatal hernia. Liver: Unremarkable. Gallbladder:Status post cholecystectomy with minimal postcholecystectomy intrahepatic dilatation. Common bile duct:Mild dilatation of the common bile duct. Pancreas:Marked fatty changes throughout the pancreas particularly the head and body region. Spleen:Unremarkable. Adrenal glands:Unremarkable. Kidneys:No renal calculus or acute obstruction. Evidence for small left renal cyst. No evidence for bowel obstruction. Aorta:No evidence for aneurysm. Spine:No significant acute process. No CT evidence for acute appendicitis. The urinary bladder is unremarkable. Reproductive system:Unremarkable as visualized. Hernias:None No abscess, adenopathy, or abnormal fluid collection within the abdomen or pelvis. IMPRESSION: Extensive pneumomediastinum and subcutaneous emphysema. Other findings as above. No evidence for other significant acute process in the abdomen or pelvis.
[2020-07-22 17:24] LABS: Lactic Acid 1.3 mmol/L (0.5-2.2)
[2020-07-22] MEDS ORDERED: Bisacodyl 10 MG SUPP PR PRN (18:05)
[2020-07-22] MEDS ORDERED: Calcium Carbonate 500 MG ChewTAB PO PRN (18:05)
[2020-07-22] MEDS ORDERED: ALPRAZolam 1 MG TAB PO PRN (18:05)
[2020-07-22] MEDS ORDERED: HYDROcodone/Acetaminophen 10/325 mg Tablet PO PRN (18:05)
[2020-07-22] MEDS ORDERED: Guaifenesin DM 100-10/5 ML UDCUP PO PRN (18:05)
[2020-07-22] MEDS ORDERED: HYDROcodone/Acetaminophen 5/325 mg Tablet PO PRN (18:05)
[2020-07-22] MEDS ORDERED: Acetaminophen 325 MG TAB PO PRN (18:05)
--- NOTE | 2020-07-22 18:38 | HP ---
REASON FOR ADMISSION: Subcutaneous emphysema with pain. HISTORY OF PRESENTING ILLNESS: The patient gives history of having one of his lung bleb ruptured with onset of subcutaneous emphysema 3 weeks back. He was hospitalized for a day here at [facility] and then went home. He states he got worse, got readmitted for 2 days at [facility]. This afternoon, he felt like his neck was getting crushed. He started feeling very sore in his neck and chest area. Finally came to emergency room here. He has had morphine 4 mg x2, Motrin 800 mg, and a dose of Dilaudid in the ER and currently he is comfortable with his pain. The patient has had significant history of recurrent bleb rupture with prior pneumothorax and with multiple pleurodesis, thoracotomies per patient and currently has had subcutaneous emphysema. No history of fever, cough, or expectoration. He ambulates by himself. He is currently living with his dad to help him. PAST MEDICAL AND SURGICAL HISTORY: History of Crohn disease, dyslipidemia, multiple prior spontaneous pneumothorax with multiple bleb rupture with pneumothorax and prior pleurodesis multiple times with thoracotomies per patient. He has had nearly 5 thoracotomies on the left and 4 on the right per patient. Two of them on the left were apparently done here per patient. Appendectomy, cholecystectomy, left leg skin graft for marlow, history of nephrolithiasis, Nahed disease, Crohn disease. CURRENT MEDICATIONS: 1. Alprazolam 1 mg 4 times daily. 2. Norvasc 10 mg daily. 3. Metoprolol succinate extended release 50 mg daily. 4. Temazepam 30 mg q.h.s. 5. Prazosin 1 mg p.o. daily. 6. Prozac 80 mg p.o. daily. 7. Sumatriptan p.r.n. for migraine. 8. Atorvastatin 20 mg p.o. daily. 9. Ventolin inhaler q.6 hourly p.r.n. ALLERGIES: TO COMPAZINE, KETOROLAC, PENICILLIN, PHENERGAN, REGLAN, AND TORADOL. PATIENT SAYS THE ONLY THING THAT HE IS SERIOUSLY ALLERGIC TO IS PENICILLIN, BUT THE OTHERS CAUSED HIM TO HAVE A PANIC ATTACK LIKE SITUATION. PERSONAL HISTORY: Does not abuse alcohol or drugs. No history of smoking. He is currently unemployed, previously he used to work for [employer]. FAMILY HISTORY: Mother at the age of 68 recently, she apparently fell and broke her ribs, and also had history of obsessive compulsive disorder. Father is 74 and has survived lymphoma. He is currently alive. CODE STATUS: Full. REVIEW OF SYSTEMS: CONSTITUTIONAL: Negative for weight loss or gain, ability to conduct usual activities. SKIN: Negative for rash, itching. EYES: Negative for double vision, pain. ENT/MOUTH: Negative for nose bleeding, neck stiffness, pain, tenderness. CARDIOVASCULAR: Negative for palpitations, dyspnea on exertion, orthopnea. RESPIRATORY: Negative for shortness of breath, wheezing, cough, hemoptysis, fever or night sweats. GASTROINTESTINAL: Negative for poor appetite, abdominal pain, heartburn, nausea, vomiting, constipation, or diarrhea. GENITOURINARY: Negative for urgency, frequency, dysuria, nocturia. MUSCULOSKELETAL: Negative for pain, swelling. NEUROLOGIC/PSYCHIATRIC: Negative for anxiety, depression. ALLERGY/IMMUNOLOGIC: Negative for skin rash, bleeding tendency. PHYSICAL EXAMINATION: GENERAL: The patient is a 44-year-old male who is currently not in any acute distress. VITAL SIGNS: Blood pressure 134/70, pulse 100 per minute, respiratory rate 20 per minute, temperature 98.4 degrees Fahrenheit, saturating 98% on room air. NECK: Supple. No elevated JVD. HEENT: Eyes; extraocular muscles intact. Pupils reacting to light. Oral cavity, mucous membranes are moist. No exudates or congestion. CARDIOVASCULAR: S1 and S2 heard. Regular rhythm. RESPIRATORY: Air entry 2+ bilateral. Patient has subcu emphysema in the anterior chest wall, neck and infra-axillary areas. ABDOMEN: Soft. Bowel sounds heard. No tenderness, rigidity, or guarding. EXTREMITIES: No peripheral edema or calf tenderness. VASCULAR: Peripheral pulses 1+ bilateral. No ischemic ulcers or gangrene. CENTRAL NERVOUS SYSTEM: No gross focal deficits noted. Patient is alert, awake, oriented well. PSYCHIATRIC: Patient's mood is euthymic. No hallucinations or delusions. DIAGNOSTIC STUDIES: CT abdomen and pelvis with contrast done shows extensive pneumomediastinum and subcutaneous emphysema. No acute process in the abdomen or pelvis. CT angio chest done showed no evidence of PE. Extensive multi spatial, multi compartmental air. There is evidence of subcutaneous emphysema, pneumomediastinum as well as small bilateral pneumothoraces. White count of 6, H and H 15 and 45, platelet count 185, MCV 89. PT/INR, PTT within normal limits. Electrolytes stable. BUN 20, creatinine 1.29, serum glucose 107, AST 32, ALT 85, alkaline phosphatase 211. Troponin-I negative. Albumin is 4.7. EKG done shows normal sinus rhythm at 89 beats per minute. There is nonspecific ST-T wave changes. CLINICAL IMPRESSION AND PLAN: Patient will be under observation on medical floor for pain secondary to large subcutaneous emphysema. He has had recurrent such episodes in the past as well. The current episode is ongoing from last 3 weeks per patient. We will place him on Demerol 50 mg IV q.6 hourly p.r.n. along with Motrin, [place] for breakthrough pain. He is also on multiple psychotropic medications and needs to be closely monitored for airway compromise. The patient says he needs Xanax for his anxiety, temazepam for insomnia, and Lyrica in addition to prazosin and Prozac. We will continue his Synthroid, Toprol-XL, Lipitor Norvasc, DuoNeb q.6 hourly and if needed, we will consult Pulmonology or Cardiothoracic Surgery based on his clinical course here. Job ID: [id number] [facility]
--- NOTE | 2020-07-22 18:45 | CON ---
DATE OF CONSULTATION: 07/22/2020 REQUESTING PHYSICIAN: Nathaniel Fernandes MD CHIEF COMPLAINT: Pain and swelling in upper chest and neck. HISTORY OF PRESENT ILLNESS: The patient is a 44-year-old man, who has already undergone bilateral pleurodesis for spontaneous pneumothorax. He describes a thoracoscopic approach on the right side and then what would appear to represent two open approaches on the left. He describes an incomplete pleurodesis on the left side requiring a second procedure that most recent procedure was roughly 10 years ago. The patient was seen in the emergency room at [facility] multiple times over the last few weeks with complaints of chest pain, multiple chest x-rays and CT scans shown varying degrees of subcutaneous emphysema, but no pneumothorax. The patient presents today with more complaints of pain associated with subcutaneous emphysema with a sensation that his throat is closing off. 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 HOME MEDICATIONS: 1. Prozac. 2. Synthroid. 3. Omeprazole. 4. Prazosin. 5. He has been managed with Tegretol, Elavil and Xanax in the past. ALLERGIES: HE REPORTS ALLERGIES TO TORADOL, WHICH HE SAYS CAUSES HIVES. PENICILLIN, WHICH CAUSES HIVES. REGLAN, WHICH CAUSES HIVES. DEMEROL, WHICH CAUSES HIVES. SOCIAL HISTORY: He denies smoking or drinking alcohol. FAMILY HISTORY: Significant for anxiety and depression, coronary artery disease, cancer. REVIEW OF SYSTEMS: Negative for any fever or chills or recent cough. No trauma. PHYSICAL EXAMINATION: GENERAL: He is somewhat anxious and has a slight nasal quality to his voice. Vital SIGNS: His heart rate is in the 90s and systolic blood pressure is in the mid 90s, which is similar to the heart rates and blood pressures that he was running in the emergency room here on July 14. Found a heart rate of 92 and a blood pressure of 98/55 at that time. CHEST: He has visible irregularities to his anterior chest wall associated with audible and palpable crepitus. He has small scars on his right chest consistent with a thoracoscopy. He has two fairly high posterolateral thoracotomy scars about 2 fingerbreadths apart from each other on the left side. He has equal breath sounds and no wheezing. He has regular rate and rhythm. ABDOMEN: Soft and nontender. LABORATORY DATA: His chest x-ray today shows more pronounced subcutaneous emphysema than the one he had here last week, but similar to some of the x-rays he had with subcutaneous emphysema at [facility]. He had a CT scan at [facility] contemporaneously that showed significant subcutaneous emphysema tracking up into the neck, but no pneumothorax. IMPRESSION/RECOMMENDATION: It is unclear to me why he would be developing subcutaneous emphysema like this. I think it would be extraordinarily unlikely that any of his air showing up would be from anything other than respiratory tract and has been an ongoing problem for long enough that certainly if these were some bizarre manifestations of an esophageal perforation that he would clinically be quite ill if at all still alive. Presumably, he has had rupture of some pleural bleb, but with a successful pleurodesis, the air is tracking elsewhere. The subcutaneous emphysema in the symptoms associated are very distressing as they typically are, fortunately, there really is not anything bad that subcutaneous emphysema causes other than that distress and discomfort and there really is not anything that one can do about it. If he were to have a pneumothorax, that would need to be treated, but given his pleurodesis and radiographic evidence of no pneumothorax even on CAT scan about a week ago, I would not attempt placing any sort of pleural catheter in a space too small to show up on a plain film. There really is not anything that I have to offer this man. Job ID: [id number]
[2020-07-22 19:31] LABS: Acetaminophen Less than 6.0 mcg/mL (10.0-30.0); Alcohol Less than 10 mg/dL (Less than 10); Salicylate Less than 8.0 mg/dL (15.0-30.0)
[2020-07-22] MEDS: HYDROcodone/Acetaminophen 10/325 mg Tablet PO PRN ×2 (19:50→23:56)
[2020-07-22] MEDS: Pregabalin 50 MG CAP PO SCH (19:59)
[2020-07-22] MEDS: Atorvastatin Calcium 20 MG TAB PO SCH (20:00)
[2020-07-22] MEDS: Temazepam 15 MG CAP PO PRN (20:00)
[2020-07-22] MEDS: Ibuprofen 200 MG TAB PO SCH (20:01)
[2020-07-22] MEDS: Senokot S 8.6-50 MG TAB PO SCH (20:01)
[2020-07-22] MEDS: Famotidine 20 MG TAB PO SCH (20:02)
[2020-07-22] MEDS: Prazosin HCl 1 MG CAP PO SCH (20:03)
[2020-07-22] MEDS: Ondansetron PF 4 MG/2 ML Vial IVP PRN (21:47)
[2020-07-22 22:53] VITALS: BMI 29.2
[2020-07-23] MEDS: Levothyroxine 150 MCG TAB PO SCH (05:17)
[2020-07-23 05:31] LABS: #Eosinphils 0.2 thou/uL (0.0-0.7); #Monocytes 0.4 thou/uL (0.11-0.59); #Neutrophils 3.2 thou/uL (1.40-6.50); %Basophils 0.8 % (0.0-1.0); %Eosinophils 3.6 % (0.0-10.0); %Lymphocytes 34.3 % (21.0-51.0); %Monocytes 6.1 % (0.0-10.0); %Neutrophils 55.3 % (42.0-75.0); Hemoglobin 14.8 g/dL (14.0-18.0); Mean Corpuscular Hemoglobin 29.8 pg (27.0-31.0); Mean Corpuscular Volume 90.4 fL (78.0-98.0); Mean Platelet Volume 8.2 fL (7.4-10.4); Platelet Count 178 thou/uL (130-400); Red Blood Cell (RBC) Count 4.97 mill/uL (4.70-6.10); White Blood Cell (WBC) Count 5.8 thou/uL (4.8-10.8)
[2020-07-23 05:52] LABS: ALT (SGPT) 85 U/L (8-55); AST (SGOT) 49 U/L (5-34); Albumin 4.3 g/dL (3.5-5.0); Alkaline Phosphatase 219 U/L (40-110); Anion Gap 15 mmol/L (10-20); BUN (Urea Nitrogen) 20 mg/dL (8.9-20.6); Bilirubin, Total 0.9 mg/dL (0.2-1.2); Calc. Creatinine Clearance 121 mL/min (70-130); Calcium 8.9 mg/dL (7.8-10.44); Carbon Dioxide 26 mmol/L (22-29); Chloride 105 mmol/L (98-107); Globulin 2.9 g/dL (2.4-3.5); Glucose 88 mg/dL (70-105); Potassium 4.5 mmol/L (3.5-5.1); Protein, Total 7.2 g/dL (6.0-8.3); Sodium 141 mmol/L (136-145)
[2020-07-23] MEDS: HYDROcodone/Acetaminophen 10/325 mg Tablet PO PRN ×4 (07:17→20:48)
[2020-07-23 08:14] LABS: SARS-CoV-2 MS2 Positive; SARS-CoV-2 N Gene Negative; SARS-CoV-2 S Gene Negative; SARS-CoV-2 by NAA Not Detected (NotDetected); SARS-CoV-2 orf1ab Negative
[2020-07-23] MEDS: Amlodipine 10 MG TAB PO SCH (09:12)
[2020-07-23] MEDS: Pregabalin 50 MG CAP PO SCH ×2 (09:12→20:47)
[2020-07-23] MEDS: Ibuprofen 200 MG TAB PO SCH ×3 (09:12→20:48)
[2020-07-23] MEDS: Famotidine 20 MG TAB PO SCH ×2 (09:14→20:48)
[2020-07-23] MEDS: FLUoxetine HCl 20 MG CAP PO SCH (09:14)
[2020-07-23] MEDS: Enoxaparin Sodium 40 MG/0.4 ML SYRINGE SC SCH (09:15)
[2020-07-23] MEDS: Senokot S 8.6-50 MG TAB PO SCH ×2 (09:15→20:49)
[2020-07-23 14:33] LABS: Amphetamine Not Detected (NotDetected); Barbiturates Screen Not Detected (NotDetected); Benzodiazepine Screen Detected (NotDetected); Cocaine Metabolite Screen Not Detected (NotDetected); Medtox Control Line Valid? VALID (VALID); Medtox Reader # READER 1; Methadone Not Detected (NotDetected); Methamphetamine Not Detected (NotDetected); Opiate Screen Detected (NotDetected); Oxycodone Screen Not Detected (NotDetected); Phencyclidine (PCP) Not Detected (NotDetected); THC/Cannabinoid Screen Detected (NotDetected); Tricyclic Screen Not Detected (NotDetected)
--- NOTE | 2020-07-23 15:28 | PDOC.HOSPP ---
- Subjective Encounter Date: 07/23/20 Subjective: Seen and examined this morning at bedside. Denies any shortness of breath but continues to refers significant chest discomfort and pressure to base of the neck with intensity of 8-10. He is speaking in full sentences with no evidence of distress. Does also tell me he suffers from migraines and is currently having one which he believes is exacerbating his general discomfort. - Objective Vital Signs & Weight: Vital Signs (12 hours) Temp Pulse Resp BP BP Pulse Ox 07/23/20 13:03 89 14 95 07/23/20 11:20 97.7 F 76 16 119/82 92 L 07/23/20 09:12 72 111/72 07/23/20 07:20 97.5 F L 72 16 111/72 92 L 07/23/20 06:51 85 14 95 07/23/20 04:40 97.7 F 76 14 119/75 98 Weight Weight 215 lb 9.6 oz I&O: 07/22/20 07/23/20 07/24/20 06:59 06:59 06:59 Intake Total 403 440 Balance 403 440 Result Diagrams: 07/23/20 04:59 07/23/20 04:59 Radiology Reviewed by me: Yes Hospitalist ROS - Review of Systems Constitutional: denies: fever, chills, sweats, weakness, malaise Eyes: denies: pain, vision change, conjunctivae inflammation, eyelid inflammation, redness, other ENT: reports: throat pain, other (Pressure to base of the neck). denies: ear pain, ear discharge, nose pain, nose discharge Respiratory: reports: pleuritic pain. denies: cough, shortness of breath, hemoptysis, SOB with excertion, wheezing Cardiovascular: reports: chest pain. denies: palpitations, orthopnea, paroxysmal noc. dyspnea, edema, light headedness, other Musculoskeletal: denies: neck pain, shoulder pain, arm pain, back pain, hand pain, leg pain, foot pain, other Neurological: reports: other (Refers migraine headache). denies: weakness, numbness, incoordination, change in speech, confusion, seizures - Medication Medications: Active Medications Generic Name Dose Route Start Last Admin Trade Name Freq PRN Reason Stop Dose Admin Hydrocodone Bitart/Acetaminophen 1 tab 07/22/20 18:15 07/23/20 12:36 Hydrocodone/Acetaminophen 10/325 Mg Tablet PO 1 tab 5XD PRN Administration Moderate Pain (4-6) Albuterol/Ipratropium 3 ml 07/23/20 01:00 07/23/20 13:03 Ipratropium/Albuterol Sulfate 3 Ml Neb NEB 3 ml [id number] JUDAH Administration Alprazolam 1 mg 07/22/20 18:05 07/22/20 20:58 Alprazolam 1 Mg Tab PO 1 mg QIDPRN PRN Administration Anxiety Amlodipine Besylate 10 mg 07/23/20 09:00 07/23/20 09:12 Amlodipine 10 Mg Tab PO 10 mg DAILY JUDAH Administration Atorvastatin Calcium 20 mg 07/22/20 21:00 07/22/20 20:00 Atorvastatin Calcium 20 Mg Tab PO 20 mg HS JUDAH Administration Enoxaparin Sodium 40 mg 07/23/20 09:00 07/23/20 09:15 Enoxaparin Sodium 40 Mg/0.4 Ml Syringe SC 40 mg 0900 JUDAH Administration Famotidine 20 mg 07/22/20 21:00 07/23/20 09:14 Famotidine 20 Mg Tab PO 20 mg BID JUDAH Administration Fluoxetine HCl 80 mg 07/23/20 09:00 07/23/20 09:14 Fluoxetine Hcl 20 Mg Cap PO 80 mg DAILY JUDAH Administration Ibuprofen 400 mg 07/22/20 21:00 07/23/20 13:32 Ibuprofen 200 Mg Tab PO Not Given TID JUDAH Levothyroxine Sodium 150 mcg 07/23/20 06:00 07/23/20 05:17 Levothyroxine 150 Mcg Tab PO 150 mcg 0600 JUDAH Administration Meperidine HCl 50 mg 07/22/20 18:13 07/23/20 14:00 Meperidine Hcl/Pf 50 Mg/Ml Vial SLOW IVP 50 mg Q4H PRN Administration Severe Pain (7-10) Metoprolol Succinate 50 mg 07/23/20 09:00 07/23/20 09:13 Metoprolol Succinate Xl 50 Mg Tab PO 50 mg DAILY JUDAH Administration Ondansetron HCl 4 mg 07/22/20 18:05 07/22/20 21:47 Ondansetron Pf 4 Mg/2 Ml Vial IVP 4 mg Q6H PRN Administration Nausea/Vomiting Prazosin HCl 1 mg 07/22/20 21:00 07/22/20 20:03 Prazosin Hcl 1 Mg Cap PO Not Given HS JUDAH Pregabalin 200 mg 07/22/20 21:00 07/23/20 09:12 Pregabalin 50 Mg Cap PO 200 mg BID JUDAH Administration Senna/Docusate Sodium 2 tab 07/22/20 21:00 07/23/20 09:15 Senokot S 8.6-50 Mg Tab PO Not Given BID JUDAH Temazepam 30 mg 07/22/20 18:05 07/22/20 20:00 Temazepam 15 Mg Cap PO 30 mg HSPRN PRN Administration ANXIETY/INSOMNIA - Exam General Appearance: NAD, awake alert Eye: PERRL ENT: normocephalic atraumatic, no oropharyngeal lesions, moist mucosa Neck: supple, symmetric, no JVD, no thyromegaly, no lymphadenopathy Neck - other findings: Positive sub cutaneous emphysema Heart: RRR, no murmur, no gallops, no rubs, normal peripheral pulses Respiratory: CTAB, no wheezes, no rales, no ronchi, normal chest expansion, no tachypnea Respiratory - other findings: Positive subcutaneus emphysema Gastrointestinal: soft, non-tender, non-distended, normal bowel sounds, no palpable masses, no hepatomegaly, no splenomegaly, no bruit Extremities: no cyanosis, no clubbing, no edema Skin: normal turgor, no lesions, no rashes Neurological: cranial nerve grossly intact, normal sensation to touch, no weakness, no focal deficits, no new deficit Musculoskeletal: normal tone, normal strength, no muscle wasting Psychiatric: normal affect, normal behavior, A&O x 3 Hosp A/P - Plan old records reviewed/req A/P: Patient with know history of recurrent episodes of spontaneous pneumothorax per patient due so bleb rupture who has undergone multiple pro cedures including bilateral pleurodesis with last procedure about 10 yrs ago now presents for evaluation of chest pain with recent evaluation showing subcutaneous emphysema but no pneumothorax. # Subcutaneous emphysema: Somewhat of an atypical presentation. Appears that this has been ongoing for a few weeks now. During assessment he has obvious crepitus but good bilateral lung sounds. His vital signs are stable without any hypoxia and there is certainly no evidence of distress. He has been seen by Dr. Chavez who recommends to continue observation. He will remain in the hospital today due to his degree of pain. Will repeat chest x-ray in AM for follow up. Pending his progression he will likely be discharge with indications to follow up as outpatient. # Migraine: Start brief trial of Imitrex as patient has used it successfully in the past. DISPOSITION: Possible DC in 24 hrs if he remains stable and pain is better controlled. Repeat chest x-ray in AM.
[2020-07-23] MEDS: SUMAtriptan Succinate 50 MG TAB PO PRN (16:38)
[2020-07-23] MEDS: Ondansetron PF 4 MG/2 ML Vial IVP PRN (18:23)
[2020-07-23] MEDS: Atorvastatin Calcium 20 MG TAB PO SCH (20:48)
[2020-07-23] MEDS: Prazosin HCl 1 MG CAP PO SCH (20:49)
[2020-07-23] MEDS: Temazepam 15 MG CAP PO PRN (23:46)
[2020-07-24] MEDS: HYDROcodone/Acetaminophen 10/325 mg Tablet PO PRN ×2 (00:39→05:19)
[2020-07-24] MEDS ORDERED: Morphine 2 MG/ML VIAL SLOW IVP SCH (01:00)
[2020-07-24] MEDS: Levothyroxine 150 MCG TAB PO SCH (05:20)
--- NOTE | 2020-07-24 08:14 | RAD ---
2 views of the chest: 07/24/2020 COMPARISON: 07/22/2020 HISTORY: Evaluate subcutaneous emphysema FINDINGS: Linear lucency along the mediastinal contours at the medial left base, left perihilar regio n, and right paratracheal region again noted, evidence of pneumomediastinum. No obvious pneumothorax is seen. Old rib fractures and prior rib resection noted on the left. Suture lines again overlie the right lung apex. There is subcutaneous emphysema within the right chest wall and bilateral supraclavicular regions, less conspicuous when compared to the 07/22/2020 exam. No focal con solidation or alveolar edema. Pneumomediastinum has improved since the prior exam. Lateral imaging demonstrates extension of the subcutaneous gas into the soft tissues of the upper abd omen. IMPRESSION: Improving subcutaneous emphysema and pneumomediastinum.
[2020-07-24] MEDS: Ibuprofen 200 MG TAB PO SCH ×2 (08:52→14:05)
[2020-07-24] MEDS: Enoxaparin Sodium 40 MG/0.4 ML SYRINGE SC SCH (08:53)
[2020-07-24] MEDS: FLUoxetine HCl 20 MG CAP PO SCH (08:54)
[2020-07-24] MEDS: Pregabalin 50 MG CAP PO SCH (08:54)
[2020-07-24] MEDS: Senokot S 8.6-50 MG TAB PO SCH (08:55)
[2020-07-24] MEDS: Famotidine 20 MG TAB PO SCH (08:55)
[2020-07-24] MEDS: Amlodipine 10 MG TAB PO SCH (08:55)
[2020-07-24] MEDS: SUMAtriptan Succinate 50 MG TAB PO PRN (10:30)
[2020-07-24 11:48] VITALS: BP 111/74; TEMP 98.1
--- NOTE | 2020-07-24 13:44 | PDOC.DS.DS ---
Provider - Provider Date of Admission: 07/23/20 14:07 Date of Discharge: 07/24/20 Admitting Provider: Lena Gerardo MD Consultations: Other (CTS) Primary Care Physician: ABIMAEL SINHA DO Course - Hospital Course Hospital Course: Patient with know history of recurrent episodes of spontaneous pneumothorax per patient due so bleb rupture who has undergone multiple procedures including bilateral pleurodesis with last procedure about 10 yrs ago now presents for evaluation of chest pain with recent evaluation showing subcutaneous emphysema but no pneumothorax. He was admitted for observation and management of his pain. He was seen by Dr. Chavez who recommended observation and agains any type of procedure. He did undergo repeat chest x-ray on day of discharge which shoed improved subcutaneous emphysema. He remained hemodynamically stable without any evidence of distress and no recorded hypoxia. He was advised to follow up with PCP in 1 week. Case discussed in extensive detail with patient and patient's father. Resuscitation Status: 07/22/20 18:01 Resuscitation Status Routine Resuscitation Status: FULL: Full Resuscitation Discussed with: POA: father - Labs Lab Results: 07/23/20 04:59 07/23/20 04:59 Abnormal Lab Results - Last 48 hrs 07/22/20 13:30: D-Dimer 1.24 H 07/22/20 13:30: ALT 85 H, Alkaline Phosphatase 211 H 07/22/20 13:30: Basophils % 1.2 H 07/22/20 13:30: Salicylates Less than 8.0 L, Acetaminophen Less than 6.0 L 07/22/20 14:06: Lactic Acid 2.8 H 07/23/20 04:59: AST 49 H, ALT 85 H, Alkaline Phosphatase 219 H 07/23/20 14:05: Urine Opiates Screen Detected H, U Benzodiazepines Scrn Detected H, U Cannabinoids Screen Detected H Microbiology - Entire Visit 07/22/20 14:06 Venous blood - Left Foot Blood Culture - Preliminary Specimen has been received and culture in progress. No Growth to date. 07/22/20 14:06 Venous blood - Right Arm Blood Culture - Preliminary Specimen has been received and culture in progress. No Growth to date. - Physical Exam Vitals: Vital Signs (12 hours) Temp Pulse Resp BP BP Pulse Ox 07/24/20 13:30 74 16 94 L 07/24/20 11:48 98.1 F 76 16 111/74 94 L 07/24/20 08:55 87 135/83 07/24/20 07:15 97.8 F 70 16 111/77 92 L 07/24/20 04:19 98.4 F 74 18 112/74 98 Weight Weight 215 lb 9.6 oz Physical Exam: The patient was seen and examined on the day of discharge. Problem - Discharge Plan Plan of Treatment: A/P: Patient with know history of recurrent episodes of spontaneous pneumothorax per patient due so bleb rupture who has undergone multiple procedures including bilateral pleurodesis with last procedure about 10 yrs ago now presents for evaluation of chest pain with recent evaluation showing subcutaneous emphysema but no pneumothorax. # Subcutaneous emphysema: Somewhat of an atypical presentation. Appears that this has been ongoing for a few weeks now. During assessment he has obvious crepitus but good bilateral lung sounds. His vital signs are stable without any hypoxia and there is certainly no evidence of distress. He has been seen by Dr. Chavez who recommends to continue observation. He will remain in the hospital today due to his degree of pain. Will repeat chest x-ray in AM for follow up. Pending his progression he will likely be discharge with indications to follow up as outpatient. # Migraine: Start brief trial of Imitrex as patient has used it successfully in the past. Plan - Discharge Medications Home Medications: Medication Instructions Recorded Confirmed Type Levothyroxine Sodium [Synthroid] 150 mcg PO DAILY 03/25/13 07/22/20 History Promethazine HCl [Phenadoz] 25 mg PO Q6HR PRN 03/25/13 07/22/20 History SUMAtriptan Succinate [Imitrex] 6 mg IM Q1HR PRN 03/25/13 07/22/20 History Amlodipine Besylate [amLODIPine 10 mg PO DAILY 05/21/16 07/22/20 History Besylate] Atorvastatin Calcium 20 mg PO HS 05/21/16 07/22/20 History ALPRAZolam [Alprazolam] 1 mg PO QID PRN 04/19/19 07/22/20 History Prazosin HCl [Minipress] 1 mg PO HS 04/19/19 07/22/20 History FLUoxetine HCl [Prozac] 80 mg PO DAILY 07/14/20 07/22/20 History HYDROcodone/Acetaminophen [[place] 1 each PO Q5H PRN 07/14/20 07/22/20 History 10-325 Tablet] Metoprolol Succinate 50 mg PO DAILY 07/14/20 07/22/20 History Pregabalin [Lyrica] 200 mg PO BID 07/14/20 07/22/20 History Temazepam 30 mg PO HS 07/14/20 07/22/20 History SUMAtriptan Succinate [Imitrex] 100 mg PO Q2HR PRN 07/22/20 07/22/20 History Acetaminophen [Tylenol Regular 650 mg PO Q4H PRN tab 07/24/20 Rx Strength] Allergies: ketorolac tromethamine [From Toradol] Allergy (Verified 07/22/20 22:41) anxiety Penicillins Allergy (Verified 07/22/20 22:41) prochlorperazine [From Compazine] Allergy (Verified 07/22/20 22:41) prochlorperazine maleate [From Compazine] Allergy (Verified 07/22/20 22:41) prochlorperazine edisylate [From Compazine] Adverse Reaction (Verified 07/22/20 22:41) anxiety - Discharge Instructions Discharge Instructions:: ADVANCE ACTIVITY TOLERATED. DIET TOLERATED. TAKE ALL MEDICATIONS PRESCRIBED. CONTACT PHYSICIAN'S OFFICE FOR ANY QUESTIONS/CONCERNS. - Follow up Plan Referrals: ABIMAEL SINHA DO [Primary Care Provider] - (FOLLOW UP WITH PRIMARY CARE ADAM JACOME IN ONE WEEK.) Disposition: HOME Quality - Care Measures CORE MEASURES:: N/A
== END 2020-07-24 14:45 | disposition home or self-care (01) | DRG 200 ==
LOC: ERS 13:09 → SURG A 17:36 → OBSVTOIN 07-23 14:07
PROVIDERS: ADMIT Internal Medicine; ATTEND Internal Medicine
DX: J98.2 Interstitial emphysema (principal); K50.90 Crohn's disease, unspecified, without complications; G43.909 Migraine, unspecified, not intractable, without status migrainosus; Z20.828 Contact with and (suspected) exposure to other viral communicable diseases; E78.5 Hyperlipidemia, unspecified; E06.3 Autoimmune thyroiditis; E03.9 Hypothyroidism, unspecified; F41.9 Anxiety disorder, unspecified; F32.9 Major depressive disorder, single episode, unspecified; G62.9 Polyneuropathy, unspecified; Z79.899 Other long term (current) drug therapy; E78.00 Pure hypercholesterolemia, unspecified; Z88.0 Allergy status to penicillin; Z88.8 Allergy status to other drugs, medicaments and biological substances; Z90.49 Acquired absence of other specified parts of digestive tract; Z87.442 Personal history of urinary calculi
CPT/HCPCS: 36415; 71045; 71046; 71275; 74177; 80053; 80306; 80307; 83605; 84484; 85025; 85379; 85610; 85730; 87040; 87635; 93005; 94640; 96372; 96374; 96375; 96376; G0378; J1650; J1885; J2175; J2270; J2405; J7620; Q9967; U0003

== ENCOUNTER 2020-09-26 17:49 | Emergency (ER) | payer MEDICARE ==
[2020-09-26 18:43] LABS: #Eosinphils 0.1 thou/uL (0.0-0.7); #Monocytes 0.5 thou/uL (0.11-0.59); #Neutrophils 6.2 thou/uL (1.40-6.50); %Basophils 0.2 % (0.0-1.0); %Eosinophils 0.7 % (0.0-10.0); %Lymphocytes 22.8 % (21.0-51.0); %Monocytes 5.3 % (0.0-10.0); Hemoglobin 14.8 g/dL (14.0-18.0); Mean Corpuscular HGB CONC 33.7 g/dL (32.0-36.0); Mean Corpuscular Hemoglobin 28.7 pg (27.0-31.0); Mean Corpuscular Volume 85.2 fL (78.0-98.0); Mean Platelet Volume 7.5 fL (7.4-10.4); Platelet Count 331 thou/uL (130-400); RBC Distribution Width 12.2 % (11.5-14.5); Red Blood Cell (RBC) Count 5.15 mill/uL (4.70-6.10); White Blood Cell (WBC) Count 8.7 thou/uL (4.8-10.8)
[2020-09-26] MEDS ORDERED: Promethazine HCl 25 MG/ML VIAL ONE (18:54)
[2020-09-26] MEDS ORDERED: Fentanyl 100 MCG/2 ML VIAL ONE ×2 (18:54→20:49)
[2020-09-26 18:56] LABS: PTT 24.1 sec (22.9-36.1); Prothrombin Time 13.7 sec (12.0-14.7)
[2020-09-26 19:00] LABS: ALT (SGPT) 22 U/L (8-55); AST (SGOT) 18 U/L (5-34); Acetaminophen Less than 6.0 mcg/mL (10.0-30.0); Alcohol Less than 10 mg/dL (Less than 10); Alkaline Phosphatase 171 U/L (40-110); Anion Gap 15 mmol/L (10-20); BUN (Urea Nitrogen) 12 mg/dL (8.9-20.6); Bilirubin, Total 0.8 mg/dL (0.2-1.2); Calc. Creatinine Clearance 0 mL/min (70-130); Carbon Dioxide 25 mmol/L (22-29); Chloride 103 mmol/L (98-107); Globulin 3.1 g/dL (2.4-3.5); Glucose 142 mg/dL (70-105); Potassium 4.1 mmol/L (3.5-5.1); Protein, Total 7.1 g/dL (6.0-8.3); Salicylate Less than 8.0 mg/dL (15.0-30.0); Sodium 139 mmol/L (136-145)
--- NOTE | 2020-09-26 19:19 | RAD ---
CHEST ONE VIEW: 09/26/20 HISTORY: Syncope. COMPARISON: Radiograph 07/24/20. FINDINGS: There is air space opacity in the right lower lobe. No pneumothorax. No effusion. Surgical clip on th e left superior mediastinum. Heart size is mildly enlarged. Old left mid rib deformities. IMPRESSION: Right lower lobe opacity may reflect aspiration or infection. Follow-up recommended. Underlying scar is also a possibility given prior trauma. POS: HOME
--- NOTE | 2020-09-26 19:48 | CT ---
Head CT without contrast 09/26/2020: COMPARISON: 07/14/2020 HISTORY: Syncopal episode, possible seizure TECHNIQUE: Axial CT imaging at 2.5 mm intervals from vertex through skull base without contrast. Barbie nal and sagittal reformatted imaging obtained. FINDINGS: The imaged paranasal sinuses and mastoid air cells are well-aerated. No displaced calvarial fracture is noted. There is no intracranial hemorrhage, midline shift, or mass effect. No ventricular enlargement. IMPRESSION: No acute findings.
--- NOTE | 2020-09-26 20:01 | CT ---
CT of the abdomen and pelvis: 09/26/2020 COMPARISON: 07/22/2020 HISTORY: Syncope versus seizure TECHNIQUE: Axial CT imaging is obtained at 5 mm intervals from lung bases through pubic symphysis wit h IV contrast. Coronal and sagittal reformatted imaging obtained. FINDINGS: The prior examination demonstrated extensive subcutaneous gas and pneumomediastinum, no jaspreet mattie visualized. There are scattered areas of linear density within the lung bases with superimposed areas of groundgl ass opacity, new when compared to the 07/22/2020 examination, suspicious for possible Covid pneumonia. The liver, pancreas, adrenal glands, and kidneys demonstrate no acute findings. The spleen is mildly enlarged. There is a lateral left renal subcentimeter hypodensity, too small to characterize. The patient appears status post right hemicolectomy. No evidence for bowel obstruction is noted. The vascular structures of the abdomen/pelvis appear patent. No abdominal or pelvic lymphadenopathy i s seen. Review of the osseous structures demonstrates no acute findings. IMPRESSION: Bilateral pulmonary parenchymal opacities, suspicious for Covid pneumonia. No CT evidence for an acute abnormality within the abdomen/pelvis.
--- NOTE | 2020-09-26 20:14 | CT ---
CT ANGIOGRAM CHEST WITH CONTRAST: 09/26/20 HISTORY: Syncope. Seizure. COVID positive. COMPARISON: Chest radiograph same day. CT angiogram of chest 07/22/20. FINDINGS: CT angiogram chest performed after the intravenous administration of contrast. 3D rendering provided. No proximal segmental pulmonary arterial filling defect. Mild-moderate peripheral and perihilar patch y ground opacities. Relative to the CT exam of 07/22/20, the pneumomediastinum and subcutaneous emphysema has resolved. Spleen is mildly enlarged. No significant adenopathy. Thoracic spine is intact. Sternum and manubrium are intact. IMPRESSION: 1. No pulmonary embolism. 2. Mild-moderate COVID pneumonia. 3. Resolved pneumomediastinum and subcutaneous emphysema. 4. Old left sided rib fractures. No acute rib fracture. POS: HOME
== END 2020-09-26 22:19 | disposition home or self-care (01) ==
LOC: ERS 17:49
DX: R55 Syncope and collapse (principal); U07.1 COVID-19; R10.9 Unspecified abdominal pain; I10 Essential (primary) hypertension; E78.00 Pure hypercholesterolemia, unspecified; Z79.51 Long term (current) use of inhaled steroids; Z79.899 Other long term (current) drug therapy
CPT/HCPCS: 70450; 71045; 71275; 74177; 80053; 80307; 82274; 82550; 83605; 83690; 83735; 84146; 84439; 84443; 84484; 85025; 85379; 85610; 85730; 87040; 93005; 94760; 96365; 96375; 96376; J2550; J3010; Q9967

== ENCOUNTER 2021-03-21 07:07 | Emergency (ER) | payer MEDICARE ==
[2021-03-21] MEDS ORDERED: Morphine 4 MG/ML VIAL ONE (08:18)
[2021-03-21] MEDS ORDERED: Ondansetron PF 4 MG/2 ML Vial ONE (08:18)
[2021-03-21] MEDS ORDERED: diphenhydrAMINE 50 MG/ML VIAL ONE (08:37)
[2021-03-21 08:56] LABS: #Lymphocytes 1.6 thou/uL (1.20-3.40); #Monocytes 0.5 thou/uL (0.11-0.59); #Neutrophils 5.5 thou/uL (1.40-6.50); %Basophils 0.3 % (0.0-1.0); %Eosinophils 0.3 % (0.0-10.0); %Lymphocytes 21.2 % (21.0-51.0); %Monocytes 6.2 % (0.0-10.0); Hemoglobin 15.8 g/dL (14.0-18.0); Mean Corpuscular Hemoglobin 27.6 pg (27.0-31.0); Mean Corpuscular Volume 81.3 fL (78.0-98.0); Mean Platelet Volume 8.3 fL (7.4-10.4); Platelet Count 279 thou/uL (130-400); Red Blood Cell (RBC) Count 5.72 mill/uL (4.70-6.10); White Blood Cell (WBC) Count 7.6 thou/uL (4.8-10.8)
[2021-03-21 09:14] LABS: ALT (SGPT) 15 U/L (8-55); AST (SGOT) 15 U/L (5-34); Alkaline Phosphatase 156 U/L (40-110); Anion Gap 19 mmol/L (10-20); BUN (Urea Nitrogen) 20 mg/dL (8.9-20.6); Bilirubin, Total 0.9 mg/dL (0.2-1.2); Calc. Creatinine Clearance 0 mL/min (70-130); Calcium 10.7 mg/dL (7.8-10.44); Carbon Dioxide 18 mmol/L (22-29); Chloride 107 mmol/L (98-107); Globulin 3.2 g/dL (2.4-3.5); Glucose 126 mg/dL (70-105); Lipase 5 U/L (8-78); Potassium 3.7 mmol/L (3.5-5.1); Protein, Total 8.2 g/dL (6.0-8.3); Sodium 140 mmol/L (136-145)
[2021-03-21] MEDS ORDERED: Sucralfate 1 GM/10 ML UDCUP ONE (10:49)
[2021-03-21] MEDS ORDERED: Nitroglycerin 0.4 MG TAB 1 EACH ONE (11:44)
[2021-03-21 12:29] LABS: Troponin I Less than 0.010 ng/mL (< 0.028)
[2021-03-21] MEDS ORDERED: Lorazepam 2 MG/ML VIAL ONE ×2 (12:42→12:46)
[2021-03-21] MEDS ORDERED: Fentanyl 100 MCG/2 ML VIAL ONE (12:42)
[2021-03-21] MEDS ORDERED: Pantoprazole 40 MG VIAL ONE (13:04)
[2021-03-21] MEDS ORDERED: HYDROcodone/Acetaminophen 10/325 mg Tablet ONE (13:45)
[2021-03-21] MEDS ORDERED: Iopamidol-370 76% 500 ML 1 ML ONE (14:34)
== END 2021-03-21 13:49 | disposition home or self-care (01) ==
LOC: ERS 07:07
DX: R07.9 Chest pain, unspecified (principal); I10 Essential (primary) hypertension; E78.00 Pure hypercholesterolemia, unspecified; Z79.899 Other long term (current) drug therapy
CPT/HCPCS: 71045; 71275; 74174; 80053; 83690; 84484; 85025; 93005; 94760; 96374; 96375; C9113; J1200; J2060; J2270; J2405; J3010; Q9967

== ENCOUNTER 2021-04-02 | Emergency (ER) | payer MEDICARE | END 2021-04-03 00:24 | disposition home or self-care (01) ==

== ENCOUNTER 2021-04-30 07:30 | Emergency (ER) | payer MEDICARE ==
[2021-04-30] MEDS ORDERED: Ondansetron PF 4 MG/2 ML Vial ONE ×2 (08:45→10:05)
[2021-04-30] MEDS ORDERED: Morphine 10 MG/ML VIAL ONE (08:45)
[2021-04-30] MEDS ORDERED: Morphine 4 MG/ML VIAL ONE ×2 (08:46→10:05)
[2021-04-30] MEDS ORDERED: Morphine 2 MG/ML VIAL ONE ×2 (08:46→10:05)
[2021-04-30 09:05] LABS: #Eosinphils 0.1 thou/uL (0.0-0.7); #Lymphocytes 1.8 thou/uL (1.20-3.40); #Monocytes 0.5 thou/uL (0.11-0.59); %Basophils 0.2 % (0.0-1.0); %Eosinophils 1.7 % (0.0-10.0); %Lymphocytes 21.8 % (21.0-51.0); %Monocytes 5.5 % (0.0-10.0); %Neutrophils 70.9 % (42.0-75.0); Hemoglobin 13.1 g/dL (14.0-18.0); Mean Corpuscular HGB CONC 33.5 g/dL (32.0-36.0); Mean Corpuscular Hemoglobin 28.2 pg (27.0-31.0); Mean Corpuscular Volume 84.3 fL (78.0-98.0); Platelet Count 146 thou/uL (130-400); RBC Distribution Width 13.7 % (11.5-14.5); Red Blood Cell (RBC) Count 4.64 mill/uL (4.70-6.10); White Blood Cell (WBC) Count 8.4 thou/uL (4.8-10.8)
[2021-04-30 09:24] LABS: ALT (SGPT) 55 U/L (8-55); AST (SGOT) 44 U/L (5-34); Albumin 4.2 g/dL (3.5-5.0); Alkaline Phosphatase 146 U/L (40-110); Anion Gap 13 mmol/L (10-20); BUN (Urea Nitrogen) 16 mg/dL (8.9-20.6); Bilirubin, Total 0.4 mg/dL (0.2-1.2); Calc. Creatinine Clearance 0 mL/min (70-130); Calcium 9.2 mg/dL (7.8-10.44); Carbon Dioxide 27 mmol/L (22-29); Chloride 106 mmol/L (98-107); Globulin 2.6 g/dL (2.4-3.5); Glucose 240 mg/dL (70-105); Protein, Total 6.8 g/dL (6.0-8.3); Sodium 143 mmol/L (136-145)
[2021-04-30 09:29] LABS: Potassium 2.9 mmol/L (3.5-5.1)
[2021-04-30] MEDS ORDERED: Iopamidol-370 76% 500 ML 1 ML ONE (09:31)
[2021-04-30] MEDS ORDERED: Potassium Chloride 20 MEQ TAB ONE (10:05)
== END 2021-04-30 13:02 | disposition home or self-care (01) ==
LOC: ERS 07:30
DX: S29.9XXA Unspecified injury of thorax, initial encounter (principal); W18.2XXA Fall in (into) shower or empty bathtub, initial encounter; I10 Essential (primary) hypertension; E78.00 Pure hypercholesterolemia, unspecified
CPT/HCPCS: 71045; 74177; 80053; 85025; 93005; 96374; 96375; 96376; 99284; J2270; J2405; Q9967

== ENCOUNTER 2021-05-28 03:30 | Emergency (ER) | payer MEDICARE ==
[2021-05-28] MEDS ORDERED: Acetaminophen 500 MG TAB ONE (03:49)
[2021-05-28 04:32] LABS: #Eosinphils 0.1 thou/uL (0.0-0.7); #Lymphocytes 1.7 thou/uL (1.20-3.40); #Monocytes 0.3 thou/uL (0.11-0.59); #Neutrophils 2.4 thou/uL (1.40-6.50); %Basophils 1.1 % (0.0-1.0); %Eosinophils 1.9 % (0.0-10.0); %Lymphocytes 37.8 % (21.0-51.0); %Monocytes 6.9 % (0.0-10.0); %Neutrophils 52.5 % (42.0-75.0); Hemoglobin 14.3 g/dL (14.0-18.0); Mean Corpuscular HGB CONC 34.8 g/dL (32.0-36.0); Mean Corpuscular Hemoglobin 28.8 pg (27.0-31.0); Mean Corpuscular Volume 82.8 fL (78.0-98.0); Platelet Count 156 thou/uL (130-400); RBC Distribution Width 14.3 % (11.5-14.5); Red Blood Cell (RBC) Count 4.94 mill/uL (4.70-6.10); White Blood Cell (WBC) Count 4.5 thou/uL (4.8-10.8)
[2021-05-28 05:05] LABS: ALT (SGPT) 75 U/L (8-55); AST (SGOT) 42 U/L (5-34); Albumin 4.2 g/dL (3.5-5.0); Alcohol Less than 10 mg/dL (Less than 10); Alkaline Phosphatase 218 U/L (40-110); Anion Gap 16 mmol/L (10-20); BUN (Urea Nitrogen) 15 mg/dL (8.9-20.6); Bilirubin, Total 0.3 mg/dL (0.2-1.2); Calc. Creatinine Clearance 0 mL/min (70-130); Calcium 9.3 mg/dL (7.8-10.44); Carbon Dioxide 23 mmol/L (22-29); Chloride 105 mmol/L (98-107); Globulin 2.9 g/dL (2.4-3.5); Glucose 98 mg/dL (70-105); Potassium 4.1 mmol/L (3.5-5.1); Protein, Total 7.1 g/dL (6.0-8.3); Salicylate Less than 8.0 mg/dL (15.0-30.0); Sodium 140 mmol/L (136-145)
[2021-05-28 05:09] LABS: Bacteria/HPF None Seen HPF (None Seen); Bilirubin Negative (Negative); Blood, Urine 1+ (Negative); Clarity Clear (Clear); Glucose, Urine (Dipstick) Normal (Negative); Ketone, Urine Negative (Negative); Leukocyte Negative Leu/uL (Negative); Nitrite Negative (Negative); Protein, Urine (Dipstick) 10 mg/dL (Neg-Trace); Specific Gravity, Urine 1.031 (1.002-1.036); Squamous Epithelial None Seen HPF (0-3); Urobilinogen Normal mg/dL (Less than 2); WBC/HPF 0-3 HPF (0-3); pH, Urine 5.5 (5.0-9.0)
[2021-05-28 05:14] LABS: Amphetamine Not Detected (NotDetected); Barbiturates Screen Not Detected (NotDetected); Benzodiazepine Screen Detected (NotDetected); Cocaine Metabolite Screen Not Detected (NotDetected); Methadone Not Detected (NotDetected); Methamphetamine Not Detected (NotDetected); Opiate Screen Detected (NotDetected); Oxycodone Screen Detected (NotDetected); Phencyclidine (PCP) Not Detected (NotDetected); THC/Cannabinoid Screen Not Detected (NotDetected); Tricyclic Screen Not Detected (NotDetected)
== END 2021-05-28 05:59 | disposition home or self-care (01) ==
LOC: ERS 03:30
DX: R51.9 Headache, unspecified (principal); I10 Essential (primary) hypertension; E78.00 Pure hypercholesterolemia, unspecified
CPT/HCPCS: 36415; 51701; 70450; 71045; 80053; 80306; 80307; 81003; 81015; 85025; 87086

== ENCOUNTER 2021-05-29 00:54 | Emergency (ER) | payer MEDICARE | END 2021-05-29 01:35 | disposition home or self-care (01) | LOC: ERS 00:54 | DX: G89.29 Other chronic pain (principal); M54.40 Lumbago with sciatica, unspecified side | CPT/HCPCS: 99281 ==

== ENCOUNTER 2021-06-06 11:38 | Outpatient (CLI) | payer MEDICARE ==
[2021-06-06 23:11] LABS: SARS-CoV-2 PCR by NAA Not Detected (NotDetected)
== END 2021-06-06 11:39 | disposition home or self-care (01) ==
LOC: LABBT 11:38
PROVIDERS: ATTEND Nurse Practitioner Acute Care
DX: Z01.812 Encounter for preprocedural laboratory examination (principal); Z20.822 Contact with and (suspected) exposure to COVID-19
CPT/HCPCS: U0003; U0005

== ENCOUNTER 2021-06-10 08:51 | Day surgery (SDC) | payer MEDICARE ==
[2021-06-07 13:01] VITALS: BMI 25.7
[2021-06-10] MEDS ORDERED: Magnevist 469MG/ML 20 ML VIAL ONE (09:42)
[2021-06-10] MEDS ORDERED: Midazolam HCl 2 mg/2 ml Vial ONE ×2 (10:01→10:02)
[2021-06-10] MEDS ORDERED: Lidocaine 2% PF 5 ML VIAL ONE (10:15)
[2021-06-10] MEDS ORDERED: PROPOFOL 200 MG/20 ML VIAL ONE (10:15)
[2021-06-10] MEDS ORDERED: Fentanyl 100 MCG/2 ML VIAL ONE (11:15)
[2021-06-10] MEDS ORDERED: HYDROcodone/Acetaminophen 5/325 mg Tablet ONE (11:36)
== END 2021-06-10 11:58 | disposition home or self-care (01) ==
LOC: SDC/OP 08:51
PROVIDERS: ATTEND Nurse Practitioner Acute Care
DX: R41.89 Other symptoms and signs involving cognitive functions and awareness (principal); R41.82 Altered mental status, unspecified; R47.1 Dysarthria and anarthria; G43.919 Migraine, unspecified, intractable, without status migrainosus; E06.3 Autoimmune thyroiditis; E03.9 Hypothyroidism, unspecified; R53.83 Other fatigue; Z22.7 Latent tuberculosis; Z79.899 Other long term (current) drug therapy; Z88.0 Allergy status to penicillin; Z88.5 Allergy status to narcotic agent; Z90.2 Acquired absence of lung [part of]; Z90.49 Acquired absence of other specified parts of digestive tract
CPT/HCPCS: 70553; A9579; J2001; J2250; J2704; J3010

== ENCOUNTER 2021-06-27 00:23 | Emergency (ER) | payer MEDICARE ==
[2021-06-27] MEDS ORDERED: Ondansetron PF 4 MG/2 ML Vial ONE (00:47)
[2021-06-27 01:02] LABS: #Eosinphils 0.1 thou/uL (0.0-0.7); #Lymphocytes 1.8 thou/uL (1.20-3.40); #Monocytes 0.4 thou/uL (0.11-0.59); #Neutrophils 3.2 thou/uL (1.40-6.50); %Basophils 0.8 % (0.0-1.0); %Eosinophils 1.2 % (0.0-10.0); %Lymphocytes 32.7 % (21.0-51.0); %Monocytes 7.5 % (0.0-10.0); %Neutrophils 57.8 % (42.0-75.0); Hemoglobin 14.6 g/dL (14.0-18.0); Mean Corpuscular HGB CONC 35.9 g/dL (32.0-36.0); Mean Corpuscular Hemoglobin 30.1 pg (27.0-31.0); Mean Corpuscular Volume 83.7 fL (78.0-98.0); Mean Platelet Volume 8.9 fL (7.4-10.4); Platelet Count 154 thou/uL (130-400); Red Blood Cell (RBC) Count 4.85 mill/uL (4.70-6.10); White Blood Cell (WBC) Count 5.5 thou/uL (4.8-10.8)
[2021-06-27 01:24] LABS: ALT (SGPT) 38 U/L (8-55); AST (SGOT) 18 U/L (5-34); Albumin 4.2 g/dL (3.5-5.0); Alkaline Phosphatase 153 U/L (40-110); Anion Gap 14 mmol/L (10-20); BUN (Urea Nitrogen) 9 mg/dL (8.9-20.6); Bilirubin, Total 0.7 mg/dL (0.2-1.2); Calc. Creatinine Clearance 0 mL/min (70-130); Calcium 9.9 mg/dL (7.8-10.44); Carbon Dioxide 24 mmol/L (22-29); Chloride 107 mmol/L (98-107); Globulin 2.9 g/dL (2.4-3.5); Glucose 112 mg/dL (70-105); Lipase 8 U/L (8-78); Potassium 3.4 mmol/L (3.5-5.1); Protein, Total 7.1 g/dL (6.0-8.3); Sodium 142 mmol/L (136-145)
[2021-06-27] MEDS ORDERED: Pantoprazole 40 MG VIAL ONE (02:03)
== END 2021-06-27 03:47 | disposition home or self-care (01) ==
LOC: ERS 00:23
DX: R10.84 Generalized abdominal pain (principal); G89.29 Other chronic pain; R11.2 Nausea with vomiting, unspecified; R51.9 Headache, unspecified
CPT/HCPCS: 36415; 74177; 80053; 83690; 85025; 86850; 86900; 86901; 96372; 96374; 96375; C9113; J0500; J2405

== ENCOUNTER 2021-07-20 08:37 | Emergency (ER) | payer MEDICARE ==
[2021-07-20 09:50] LABS: #Eosinphils 0.1 thou/uL (0.0-0.7); #Lymphocytes 2.2 thou/uL (1.20-3.40); #Monocytes 0.4 thou/uL (0.11-0.59); #Neutrophils 2.7 thou/uL (1.40-6.50); %Basophils 0.8 % (0.0-1.0); %Eosinophils 2.6 % (0.0-10.0); %Lymphocytes 39.8 % (21.0-51.0); %Monocytes 6.8 % (0.0-10.0); Hemoglobin 13.5 g/dL (14.0-18.0); Mean Corpuscular HGB CONC 34.5 g/dL (32.0-36.0); Mean Corpuscular Hemoglobin 29.5 pg (27.0-31.0); Mean Corpuscular Volume 85.5 fL (78.0-98.0); Platelet Count 187 thou/uL (130-400); RBC Distribution Width 13.1 % (11.5-14.5); Red Blood Cell (RBC) Count 4.58 mill/uL (4.70-6.10); White Blood Cell (WBC) Count 5.4 thou/uL (4.8-10.8)
[2021-07-20 10:14] LABS: ALT (SGPT) 34 U/L (8-55); AST (SGOT) 19 U/L (5-34); Albumin 4.2 g/dL (3.5-5.0); Alkaline Phosphatase 176 U/L (40-110); Anion Gap 15 mmol/L (10-20); BUN (Urea Nitrogen) 24 mg/dL (8.9-20.6); Bilirubin, Total 0.3 mg/dL (0.2-1.2); Calc. Creatinine Clearance 0 mL/min (70-130); Carbon Dioxide 26 mmol/L (22-29); Chloride 105 mmol/L (98-107); Globulin 3.4 g/dL (2.4-3.5); Glucose 88 mg/dL (70-105); Lipase 11 U/L (8-78); Potassium 4.3 mmol/L (3.5-5.1); Protein, Total 7.6 g/dL (6.0-8.3); Sodium 142 mmol/L (136-145)
[2021-07-20] MEDS ORDERED: Acetaminophen 500 MG TAB ONE (11:54)
[2021-07-20 12:15] LABS: Bilirubin Negative (Negative); Blood, Urine Negative (Negative); Clarity Clear (Clear); Glucose, Urine (Dipstick) Normal (Negative); Ketone, Urine Negative (Negative); Leukocyte 75 Leu/uL (Negative); Nitrite Negative (Negative); Protein, Urine (Dipstick) 10 mg/dL (Neg-Trace); RBC/HPF 0-3 HPF (0-3); Specific Gravity, Urine 1.026 (1.002-1.036); Squamous Epithelial None Seen HPF (0-3); Urobilinogen Normal mg/dL (Less than 2); pH, Urine 5.5 (5.0-9.0)
[2021-07-20] MEDS ORDERED: Iopamidol-370 76% 500 ML 1 ML ONE (12:29)
[2021-07-20 12:31] LABS: Bacteria/HPF Rare-Few HPF (None Seen); Calcium Oxalate Crystals 1+ HPF (None Seen)
[2021-07-20 12:32] LABS: Mucous/LPF Rare LPF (<2+)
== END 2021-07-20 13:20 | disposition home or self-care (01) ==
LOC: ERS 08:37
DX: N39.0 Urinary tract infection, site not specified (principal); E78.5 Hyperlipidemia, unspecified; I10 Essential (primary) hypertension; Z79.899 Other long term (current) drug therapy
CPT/HCPCS: 36415; 51702; 71045; 74177; 80053; 81003; 81015; 83605; 83690; 85025; 87086; Q9967

== ENCOUNTER 2021-09-24 02:13 | Emergency (ER) | payer MEDICARE ==
[2021-09-24 02:44] LABS: #Basophils 0.1 thou/uL (0.0-0.2); #Eosinphils 0.1 thou/uL (0.0-0.7); #Lymphocytes 1.8 thou/uL (1.20-3.40); #Monocytes 0.4 thou/uL (0.11-0.59); #Neutrophils 3.9 thou/uL (1.40-6.50); %Basophils 0.8 % (0.0-1.0); %Eosinophils 1.5 % (0.0-10.0); %Lymphocytes 28.1 % (21.0-51.0); %Neutrophils 62.6 % (42.0-75.0); Hemoglobin 14.8 g/dL (14.0-18.0); Mean Corpuscular HGB CONC 35.4 g/dL (32.0-36.0); Mean Corpuscular Hemoglobin 29.6 pg (27.0-31.0); Mean Corpuscular Volume 83.5 fL (78.0-98.0); Mean Platelet Volume 8.6 fL (7.4-10.4); Platelet Count 149 thou/uL (130-400); RBC Distribution Width 12.3 % (11.5-14.5); Red Blood Cell (RBC) Count 5.01 mill/uL (4.70-6.10); White Blood Cell (WBC) Count 6.3 thou/uL (4.8-10.8)
[2021-09-24 03:02] LABS: ALT (SGPT) 29 U/L (8-55); AST (SGOT) 16 U/L (5-34); Albumin 4.3 g/dL (3.5-5.0); Alkaline Phosphatase 167 U/L (40-110); Anion Gap 16 mmol/L (10-20); BUN (Urea Nitrogen) 14 mg/dL (8.9-20.6); Bilirubin, Total 0.4 mg/dL (0.2-1.2); Calc. Creatinine Clearance 0 mL/min (70-130); Calcium 9.7 mg/dL (7.8-10.44); Carbon Dioxide 25 mmol/L (22-29); Chloride 106 mmol/L (98-107); Globulin 3.1 g/dL (2.4-3.5); Glucose 109 mg/dL (70-105); Potassium 4.2 mmol/L (3.5-5.1); Protein, Total 7.4 g/dL (6.0-8.3); Sodium 143 mmol/L (136-145)
== END 2021-09-24 02:50 | disposition left against medical advice (07) ==
LOC: ERS 02:13
DX: K92.1 Melena (principal); R10.9 Unspecified abdominal pain; R11.2 Nausea with vomiting, unspecified; E78.5 Hyperlipidemia, unspecified; I10 Essential (primary) hypertension
CPT/HCPCS: 80053; 85025; 99284

== ENCOUNTER 2021-09-25 01:09 | Emergency (ER) | payer MEDICARE ==
[2021-09-25 07:30] LABS: ALT (SGPT) 24 U/L (8-55); AST (SGOT) 19 U/L (5-34); Albumin 3.8 g/dL (3.5-5.0); Alkaline Phosphatase 156 U/L (40-110); Anion Gap 13 mmol/L (10-20); BUN (Urea Nitrogen) 18 mg/dL (8.9-20.6); Bilirubin, Total 0.3 mg/dL (0.2-1.2); Calc. Creatinine Clearance 0 mL/min (70-130); Calcium 9.3 mg/dL (7.8-10.44); Carbon Dioxide 27 mmol/L (22-29); Chloride 106 mmol/L (98-107); Globulin 2.8 g/dL (2.4-3.5); Glucose 114 mg/dL (70-105); Potassium 3.9 mmol/L (3.5-5.1); Protein, Total 6.6 g/dL (6.0-8.3); Sodium 142 mmol/L (136-145); Troponin I Less than 0.010 ng/mL (< 0.028)
[2021-09-25 07:49] LABS: Hemoglobin 13.2 g/dL (14.0-18.0); Mean Corpuscular HGB CONC 36.1 g/dL (32.0-36.0); Mean Corpuscular Hemoglobin 30.2 pg (27.0-31.0); Mean Corpuscular Volume 83.7 fL (78.0-98.0); Mean Platelet Volume 8.2 fL (7.4-10.4); Platelet Count 156 thou/uL (130-400); RBC Distribution Width 12.3 % (11.5-14.5); Red Blood Cell (RBC) Count 4.39 mill/uL (4.70-6.10)
[2021-09-25 07:50] LABS: #Eosinphils 0.1 thou/uL (0.0-0.7); #Monocytes 0.4 thou/uL (0.11-0.59); #Neutrophils 3.4 thou/uL (1.40-6.50); %Basophils 0.6 % (0.0-1.0); %Eosinophils 1.6 % (0.0-10.0); %Lymphocytes 33.7 % (21.0-51.0); %Monocytes 7.2 % (0.0-10.0); %Neutrophils 56.9 % (42.0-75.0)
[2021-09-25 08:20] LABS: Lipase 24 U/L (8-78)
== END 2021-09-25 05:15 | disposition home or self-care (01) ==
LOC: ERS 01:09
DX: R07.9 Chest pain, unspecified (principal); I10 Essential (primary) hypertension; E78.5 Hyperlipidemia, unspecified; E06.3 Autoimmune thyroiditis; Z87.19 Personal history of other diseases of the digestive system
CPT/HCPCS: 71045; 80053; 83690; 84484; 85025; 93005

== ENCOUNTER 2021-10-19 09:52 | Emergency (ER) | payer MEDICARE, MEDICAID | END 2021-10-19 12:42 | disposition home or self-care (01) | LOC: ERS 09:52 | DX: G89.29 Other chronic pain (principal); M54.6 Pain in thoracic spine; E78.5 Hyperlipidemia, unspecified; I10 Essential (primary) hypertension | CPT/HCPCS: 99283 ==

== ENCOUNTER 2021-12-06 07:15 | Inpatient (IN) | payer MEDICARE, MEDICAID ==
[2021-12-06 07:55] LABS: #Eosinphils 0.1 thou/uL (0.0-0.7); #Lymphocytes 1.4 thou/uL (1.20-3.40); #Monocytes 0.5 thou/uL (0.11-0.59); %Basophils 0.7 % (0.0-1.0); %Eosinophils 0.8 % (0.0-10.0); %Lymphocytes 19.6 % (21.0-51.0); %Monocytes 6.5 % (0.0-10.0); %Neutrophils 72.4 % (42.0-75.0); Hemoglobin 13.9 g/dL (14.0-18.0); Mean Corpuscular HGB CONC 33.3 g/dL (32.0-36.0); Mean Corpuscular Hemoglobin 28.6 pg (27.0-31.0); Mean Corpuscular Volume 85.9 fL (78.0-98.0); Mean Platelet Volume 7.9 fL (7.4-10.4); Platelet Count 230 thou/uL (130-400); RBC Distribution Width 13.2 % (11.5-14.5); Red Blood Cell (RBC) Count 4.88 mill/uL (4.70-6.10); White Blood Cell (WBC) Count 6.9 thou/uL (4.8-10.8)
[2021-12-06 08:04] LABS: PTT 29.1 sec (22.9-36.1); Prothrombin Time 13.7 sec (12.0-14.7)
[2021-12-06 08:17] LABS: ALT (SGPT) 15 U/L (8-55); AST (SGOT) 14 U/L (5-34); Albumin 4.7 g/dL (3.5-5.0); Alkaline Phosphatase 116 U/L (40-110); Anion Gap 15 mmol/L (10-20); BUN (Urea Nitrogen) 31 mg/dL (8.9-20.6); Bilirubin, Total 0.5 mg/dL (0.2-1.2); Calc. Creatinine Clearance 0 mL/min (70-130); Calcium 9.7 mg/dL (7.8-10.44); Carbon Dioxide 24 mmol/L (22-29); Chloride 106 mmol/L (98-107); Globulin 2.7 g/dL (2.4-3.5); Glucose 108 mg/dL (70-105); Potassium 4.1 mmol/L (3.5-5.1); Protein, Total 7.4 g/dL (6.0-8.3); Sodium 141 mmol/L (136-145)
[2021-12-06 08:27] LABS: Acetaminophen Less than 10.0 mcg/mL (10.0-30.0); Alcohol Less than 10 mg/dL (Less than 10); CK (CPK) 108 U/L (30-200); Magnesium 2.1 mg/dL (1.6-2.6); Salicylate Less than 8.0 mg/dL (15.0-30.0)
[2021-12-06 10:25] LABS: Bacteria/HPF None Seen HPF (None Seen); Bilirubin Negative (Negative); Blood, Urine Negative (Negative); Clarity Clear (Clear); Glucose, Urine (Dipstick) Normal (Negative); Ketone, Urine Negative (Negative); Leukocyte 25 Leu/uL (Negative); Nitrite Negative (Negative); Protein, Urine (Dipstick) Negative (Neg-Trace); RBC/HPF 0-3 HPF (0-3); Specific Gravity, Urine 1.042 (1.002-1.036); Squamous Epithelial 0-3 HPF (0-3); Urobilinogen Normal mg/dL (Less than 2)
[2021-12-06] MEDS ORDERED: Acetaminophen 500 MG TAB ONE (10:27)
[2021-12-06] MEDS ORDERED: Lidocaine 5% Patch TD SCH (10:45)
[2021-12-06 10:54] LABS: Amphetamine Not Detected (NotDetected); Barbiturates Screen Not Detected (NotDetected); Benzodiazepine Screen Not Detected (NotDetected); Cocaine Metabolite Screen Not Detected (NotDetected); Methadone Not Detected (NotDetected); Methamphetamine Not Detected (NotDetected); Opiate Screen Detected (NotDetected); Oxycodone Screen Not Detected (NotDetected); Phencyclidine (PCP) Not Detected (NotDetected); THC/Cannabinoid Screen Not Detected (NotDetected); Tricyclic Screen Detected (NotDetected)
[2021-12-06] MEDS ORDERED: Lactated Ringer's 1,000 ML IV SCH (11:00)
[2021-12-06] MEDS ORDERED: Aspirin 300 MG Suppository PR SCH (11:00)
[2021-12-06] MEDS ORDERED: Aspirin 81 mg Enteric Coated Tablet PO SCH (11:45)
[2021-12-06] MEDS ORDERED: Iopamidol 370 76% 100 ML VIAL ONE (13:02)
[2021-12-06 13:10] VITALS: BMI 27.7
[2021-12-06 13:48] LABS: Troponin I Less than 0.010 ng/mL (< 0.028)
[2021-12-06] MEDS: HYDROmorphone 2 MG TAB PO PRN ×2 (14:11→20:28)
[2021-12-06 14:28] LABS: SARS-CoV-2 NAA Rapid Test Not Detected (NotDetected)
[2021-12-06] MEDS ORDERED: Lorazepam 2 MG/ML VIAL SLOW IVP PRN (16:13)
[2021-12-06] MEDS ORDERED: levETIRAcetam in NS 1,500 MG in Premix Bag 1 BAG IVPB SCH (16:15)
[2021-12-06 16:16] LABS: Troponin I Less than 0.010 ng/mL (< 0.028)
[2021-12-06] MEDS: Sodium Chloride 0.9% 1,000 ML IV SCH (18:22)
[2021-12-06 19:23] LABS: Creatinine, Urine 79.19 mg/dL (63-166)
[2021-12-06] MEDS: Atorvastatin Calcium 40 MG TAB PO SCH (20:28)
[2021-12-07] MEDS: HYDROmorphone 2 MG TAB PO PRN ×5 (00:26→22:25)
[2021-12-07 05:23] LABS: #Eosinphils 0.1 thou/uL (0.0-0.7); #Lymphocytes 2.4 thou/uL (1.20-3.40); #Monocytes 0.7 thou/uL (0.11-0.59); #Neutrophils 3.2 thou/uL (1.40-6.50); %Basophils 0.6 % (0.0-1.0); %Eosinophils 1.4 % (0.0-10.0); %Lymphocytes 37.6 % (21.0-51.0); %Monocytes 10.6 % (0.0-10.0); %Neutrophils 49.8 % (42.0-75.0); Hemoglobin 13.9 g/dL (14.0-18.0); Mean Corpuscular HGB CONC 34.4 g/dL (32.0-36.0); Mean Corpuscular Hemoglobin 29.6 pg (27.0-31.0); Mean Corpuscular Volume 86.2 fL (78.0-98.0); Mean Platelet Volume 7.6 fL (7.4-10.4); Platelet Count 221 thou/uL (130-400); RBC Distribution Width 13.5 % (11.5-14.5); Red Blood Cell (RBC) Count 4.69 mill/uL (4.70-6.10); White Blood Cell (WBC) Count 6.3 thou/uL (4.8-10.8)
[2021-12-07 05:47] LABS: ALT (SGPT) 11 U/L (8-55); AST (SGOT) 13 U/L (5-34); Albumin 3.9 g/dL (3.5-5.0); Alkaline Phosphatase 97 U/L (40-110); Bilirubin, Direct 0.4 mg/dL (0.1-0.3); Protein, Total 6.3 g/dL (6.0-8.3)
[2021-12-07 05:48] LABS: Anion Gap 10 mmol/L (10-20); BUN (Urea Nitrogen) 20 mg/dL (8.9-20.6); Calc. Creatinine Clearance 96 mL/min (70-130); Calcium 8.9 mg/dL (7.8-10.44); Carbon Dioxide 24 mmol/L (22-29); Cardiac Risk 3.6 (Less than 4.5); Chloride 110 mmol/L (98-107); Cholesterol 137 mg/dl (< 200 Desired); Glucose 96 mg/dL (70-105); HDL Cholesterol 38 mg/dL (>60 Neg Risk); LDL Cholesterol, Calculated 72 mg/dL; Potassium 4.1 mmol/L (3.5-5.1); Sodium 140 mmol/L (136-145); Triglycerides 136 mg/dL (Less than 150)
[2021-12-07 06:00] LABS: Hemoglobin A1c 5.1 % (4.0-6.0)
[2021-12-07] MEDS: Sodium Chloride 0.9% 1,000 ML IV SCH ×2 (06:08→20:03)
[2021-12-07] MEDS ORDERED: Aspirin 300 MG Suppository PR SCH (09:00)
[2021-12-07] MEDS ORDERED: Enoxaparin Sodium 40 MG/0.4 ML SYRINGE SC SCH (09:00)
[2021-12-07] MEDS: levETIRAcetam 500 MG/5 ML VIAL SLOW IVP SCH ×2 (09:07→20:13)
[2021-12-07] MEDS: Aspirin 81 mg Enteric Coated Tablet PO SCH (09:07)
[2021-12-07] MEDS: Heparin 5,000 UNITS/ML VIAL SC SCH ×3 (09:09→20:10)
[2021-12-07] MEDS ORDERED: Amlodipine 10 MG TAB PO PRN (11:35)
[2021-12-07] MEDS ORDERED: SUMAtriptan Succinate 50 MG TAB PO PRN (12:45)
[2021-12-07] MEDS ORDERED: SUMAtriptan Succinate 6 MG/0.5 ML VIAL SC PRN (12:48)
[2021-12-07] MEDS ORDERED: Lactated Ringer's 500 ML IV SCH (15:15)
[2021-12-07] MEDS: Pregabalin 75 MG CAP PO SCH (20:04)
[2021-12-07] MEDS: Atorvastatin Calcium 40 MG TAB PO SCH (20:07)
[2021-12-07] MEDS: Amlodipine 10 MG TAB PO SCH (20:07)
[2021-12-07] MEDS: Temazepam 15 MG CAP PO SCH (20:08)
[2021-12-08] MEDS: HYDROmorphone 2 MG TAB PO PRN ×3 (02:35→19:12)
[2021-12-08 05:56] LABS: #Eosinphils 0.1 thou/uL (0.0-0.7); #Lymphocytes 1.7 thou/uL (1.20-3.40); #Monocytes 0.4 thou/uL (0.11-0.59); #Neutrophils 2.9 thou/uL (1.40-6.50); %Basophils 0.8 % (0.0-1.0); %Eosinophils 1.7 % (0.0-10.0); %Lymphocytes 32.9 % (21.0-51.0); %Monocytes 7.1 % (0.0-10.0); %Neutrophils 57.6 % (42.0-75.0); Hemoglobin 13.8 g/dL (14.0-18.0); Mean Corpuscular HGB CONC 33.4 g/dL (32.0-36.0); Mean Corpuscular Hemoglobin 28.8 pg (27.0-31.0); Mean Corpuscular Volume 86.4 fL (78.0-98.0); Mean Platelet Volume 7.9 fL (7.4-10.4); Platelet Count 206 thou/uL (130-400); Red Blood Cell (RBC) Count 4.79 mill/uL (4.70-6.10); White Blood Cell (WBC) Count 5.1 thou/uL (4.8-10.8)
[2021-12-08 06:12] LABS: Anion Gap 14 mmol/L (10-20); BUN (Urea Nitrogen) 15 mg/dL (8.9-20.6); Calc. Creatinine Clearance 136 mL/min (70-130); Calcium 8.9 mg/dL (7.8-10.44); Carbon Dioxide 24 mmol/L (22-29); Chloride 105 mmol/L (98-107); Glucose 85 mg/dL (70-105); Magnesium 1.8 mg/dL (1.6-2.6); Sodium 139 mmol/L (136-145)
[2021-12-08] MEDS: Sodium Chloride 0.9% 1,000 ML IV SCH ×2 (07:58→21:33)
[2021-12-08] MEDS: levETIRAcetam 500 MG/5 ML VIAL SLOW IVP SCH ×2 (09:15→21:07)
[2021-12-08] MEDS: Aspirin 81 mg Enteric Coated Tablet PO SCH (09:16)
[2021-12-08] MEDS: Pregabalin 75 MG CAP PO SCH ×2 (09:16→21:05)
[2021-12-08] MEDS: Heparin 5,000 UNITS/ML VIAL SC SCH ×3 (09:17→21:07)
[2021-12-08] MEDS: FLUoxetine HCl 20 MG CAP PO SCH (09:17)
[2021-12-08] MEDS: HYDROcodone/Acetaminophen 10/325 mg Tablet PO PRN ×3 (09:49→21:32)
[2021-12-08] MEDS: Amlodipine 10 MG TAB PO SCH (21:06)
[2021-12-08] MEDS: Atorvastatin Calcium 40 MG TAB PO SCH (21:07)
[2021-12-08] MEDS: Temazepam 15 MG CAP PO SCH (21:07)
[2021-12-09] MEDS: HYDROmorphone 2 MG TAB PO PRN (00:32)
[2021-12-09] MEDS: HYDROcodone/Acetaminophen 10/325 mg Tablet PO PRN ×2 (02:37→08:22)
[2021-12-09 05:45] LABS: #Eosinphils 0.1 thou/uL (0.0-0.7); #Lymphocytes 2.1 thou/uL (1.20-3.40); #Monocytes 0.5 thou/uL (0.11-0.59); #Neutrophils 2.1 thou/uL (1.40-6.50); %Basophils 0.7 % (0.0-1.0); %Eosinophils 1.8 % (0.0-10.0); %Lymphocytes 44.4 % (21.0-51.0); %Monocytes 10.1 % (0.0-10.0); Mean Corpuscular Hemoglobin 29.3 pg (27.0-31.0); Mean Corpuscular Volume 86.3 fL (78.0-98.0); Mean Platelet Volume 8.2 fL (7.4-10.4); Platelet Count 197 thou/uL (130-400); RBC Distribution Width 12.8 % (11.5-14.5); Red Blood Cell (RBC) Count 4.79 mill/uL (4.70-6.10); White Blood Cell (WBC) Count 4.8 thou/uL (4.8-10.8)
[2021-12-09 05:48] LABS: Anion Gap 13 mmol/L (10-20); BUN (Urea Nitrogen) 16 mg/dL (8.9-20.6); Calc. Creatinine Clearance 140 mL/min (70-130); Calcium 8.7 mg/dL (7.8-10.44); Carbon Dioxide 23 mmol/L (22-29); Chloride 106 mmol/L (98-107); Glucose 91 mg/dL (70-105); Magnesium 1.7 mg/dL (1.6-2.6); Potassium 3.9 mmol/L (3.5-5.1); Sodium 138 mmol/L (136-145)
[2021-12-09] MEDS: FLUoxetine HCl 20 MG CAP PO SCH (08:20)
[2021-12-09] MEDS: levETIRAcetam 500 MG/5 ML VIAL SLOW IVP SCH (08:21)
[2021-12-09] MEDS: Pregabalin 75 MG CAP PO SCH (08:21)
[2021-12-09] MEDS: Aspirin 81 mg Enteric Coated Tablet PO SCH (08:21)
[2021-12-09] MEDS: Heparin 5,000 UNITS/ML VIAL SC SCH (08:22)
[2021-12-09] MEDS: Sodium Chloride 0.9% 1,000 ML IV SCH (08:27)
[2021-12-09 11:54] VITALS: TEMP 97.9
[2021-12-09 13:57] VITALS: BP 145/83
== END 2021-12-09 14:27 | disposition home or self-care (01) | DRG 102 ==
LOC: ERS 07:15 → 2NO 10:46 → NEURO 19:53
PROVIDERS: ADMIT Internal Medicine; ATTEND Internal Medicine
DX: G43.809 Other migraine, not intractable, without status migrainosus (principal); G92.8 Other toxic encephalopathy; N17.9 Acute kidney failure, unspecified; Z20.822 Contact with and (suspected) exposure to COVID-19; F40.240 Claustrophobia; E86.0 Dehydration; T39.395A Adverse effect of other nonsteroidal anti-inflammatory drugs [NSAID], initial encounter; E03.9 Hypothyroidism, unspecified; E06.3 Autoimmune thyroiditis; G89.29 Other chronic pain; M54.50 Low back pain, unspecified; J98.2 Interstitial emphysema; D63.1 Anemia in chronic kidney disease; N18.30 Chronic kidney disease, stage 3 unspecified; I12.9 Hypertensive chronic kidney disease with stage 1 through stage 4 chronic kidney disease, or unspecified chronic kidney disease; T42.4X5A Adverse effect of benzodiazepines, initial encounter; T40.605A Adverse effect of unspecified narcotics, initial encounter; T42.6X5A Adverse effect of other antiepileptic and sedative-hypnotic drugs, initial encounter; Z88.6 Allergy status to analgesic agent; Z88.0 Allergy status to penicillin; Z88.8 Allergy status to other drugs, medicaments and biological substances; Z79.899 Other long term (current) drug therapy; Z79.890 Hormone replacement therapy; Z79.51 Long term (current) use of inhaled steroids; Z90.49 Acquired absence of other specified parts of digestive tract; Z98.890 Other specified postprocedural states; Z82.49 Family history of ischemic heart disease and other diseases of the circulatory system; Z84.2 Family history of other diseases of the genitourinary system; Z87.11 Personal history of peptic ulcer disease
CPT/HCPCS: 36415; 36416; 70450; 70496; 70498; 71045; 76770; 80048; 80053; 80061; 80076; 80306; 80307; 81003; 81015; 82550; 82570; 83036; 83605; 83690; 83735; 83930; 83935; 84300; 84439; 84443; 84484; 84540; 85025; 85610; 85730; 87040; 87086; 93005; 93306; 95819; 95957; J1644; J1953; J7050; J7120; Q9967; U0002

== ENCOUNTER 2021-12-17 02:05 | Emergency (ER) | payer MEDICARE, MEDICAID ==
[2021-12-17 03:12] LABS: Bilirubin Negative (Negative); Blood, Urine Negative (Negative); Clarity Clear (Clear); Glucose, Urine (Dipstick) Normal (Negative); Ketone, Urine Negative (Negative); Leukocyte Negative Leu/uL (Negative); Nitrite Negative (Negative); Protein, Urine (Dipstick) Negative (Neg-Trace); Specific Gravity, Urine 1.028 (1.002-1.036); Urobilinogen Normal mg/dL (Less than 2); pH, Urine 6.5 (5.0-9.0)
[2021-12-17 03:48] LABS: Hemoglobin 14.5 g/dL (14.0-18.0); Mean Corpuscular HGB CONC 33.6 g/dL (32.0-36.0); Mean Corpuscular Hemoglobin 29.1 pg (27.0-31.0); Mean Corpuscular Volume 86.6 fL (78.0-98.0); Mean Platelet Volume 10.1 fL (7.4-10.4); Platelet Count 116 thou/uL (130-400); RBC Distribution Width 13.2 % (11.5-14.5); Red Blood Cell (RBC) Count 4.98 mill/uL (4.70-6.10); White Blood Cell (WBC) Count 5.9 thou/uL (4.8-10.8)
[2021-12-17 04:07] LABS: Band 1 % (5-11); Eosinophils 4 % (0-10); Lymphocytes 38 % (21-51); MDiff Complete? YES; Monocytes 3 % (0-10); Neutrophil 51 % (42-75); Platelet Morphology Comment Appears Decreased; RBC Morphology Normal
[2021-12-17 04:18] LABS: ALT (SGPT) 158 U/L (8-55); AST (SGOT) 138 U/L (5-34); Albumin 4.5 g/dL (3.5-5.0); Alkaline Phosphatase 168 U/L (40-110); Anion Gap 15 mmol/L (10-20); BUN (Urea Nitrogen) 25 mg/dL (8.9-20.6); Bilirubin, Total 0.4 mg/dL (0.2-1.2); Calc. Creatinine Clearance 0 mL/min (70-130); Calcium 9.3 mg/dL (7.8-10.44); Carbon Dioxide 25 mmol/L (22-29); Chloride 103 mmol/L (98-107); Globulin 3.1 g/dL (2.4-3.5); Glucose 120 mg/dL (70-105); Potassium 4.7 mmol/L (3.5-5.1); Protein, Total 7.6 g/dL (6.0-8.3); Sodium 138 mmol/L (136-145)
[2021-12-17] MEDS ORDERED: Iopamidol-370 76% 500 ML 1 ML ONE (08:48)
== END 2021-12-17 06:30 | disposition home or self-care (01) ==
LOC: ERS 02:05
DX: R33.9 Retention of urine, unspecified (principal); R74.01 Elevation of levels of liver transaminase levels
CPT/HCPCS: 51702; 74177; 80053; 81003; 85025; Q9967

== ENCOUNTER 2021-12-22 14:14 | Emergency (ER) | payer MEDICARE, MEDICAID ==
[2021-12-22 15:13] LABS: #Eosinphils 0.2 thou/uL (0.0-0.7); #Lymphocytes 1.9 thou/uL (1.20-3.40); #Monocytes 0.4 thou/uL (0.11-0.59); #Neutrophils 5.1 thou/uL (1.40-6.50); %Basophils 0.1 % (0.0-1.0); %Eosinophils 2.5 % (0.0-10.0); %Lymphocytes 24.9 % (21.0-51.0); %Neutrophils 67.5 % (42.0-75.0); Hemoglobin 15.3 g/dL (14.0-18.0); Mean Corpuscular HGB CONC 33.7 g/dL (32.0-36.0); Mean Corpuscular Hemoglobin 28.8 pg (27.0-31.0); Mean Corpuscular Volume 85.6 fL (78.0-98.0); Mean Platelet Volume 7.9 fL (7.4-10.4); Platelet Count 252 thou/uL (130-400); RBC Distribution Width 13.5 % (11.5-14.5); Red Blood Cell (RBC) Count 5.32 mill/uL (4.70-6.10); White Blood Cell (WBC) Count 7.6 thou/uL (4.8-10.8)
[2021-12-22 15:21] LABS: PTT 29.7 sec (22.9-36.1); Prothrombin Time 13.1 sec (12.0-14.7)
[2021-12-22 15:29] LABS: ALT (SGPT) 45 U/L (8-55); AST (SGOT) 22 U/L (5-34); Albumin 4.7 g/dL (3.5-5.0); Alkaline Phosphatase 126 U/L (40-110); Anion Gap 16 mmol/L (10-20); BUN (Urea Nitrogen) 9 mg/dL (8.9-20.6); Bilirubin, Total 0.7 mg/dL (0.2-1.2); CK (CPK) 71 U/L (30-200); Calc. Creatinine Clearance 0 mL/min (70-130); Carbon Dioxide 24 mmol/L (22-29); Chloride 106 mmol/L (98-107); Globulin 3.1 g/dL (2.4-3.5); Glucose 119 mg/dL (70-105); Lipase 15 U/L (8-78); Potassium 3.8 mmol/L (3.5-5.1); Protein, Total 7.8 g/dL (6.0-8.3); Sodium 142 mmol/L (136-145)
[2021-12-22] MEDS ORDERED: Fentanyl 100 MCG/2 ML VIAL ONE (16:39)
== END 2021-12-22 16:47 | disposition home or self-care (01) ==
LOC: ERS 14:14
DX: E86.0 Dehydration (principal); M54.32 Sciatica, left side; E78.5 Hyperlipidemia, unspecified; I10 Essential (primary) hypertension; Z79.899 Other long term (current) drug therapy
CPT/HCPCS: 36415; 70450; 71045; 80053; 82550; 83690; 84443; 84484; 85025; 85610; 85730; 93005; 94760; 96374; J3010

== ENCOUNTER 2022-01-01 19:55 | Emergency (ER) | payer MEDICARE, MEDICAID ==
[2022-01-01] MEDS ORDERED: Ondansetron PF 4 MG/2 ML Vial ONE (21:24)
[2022-01-01] MEDS ORDERED: Morphine 4 MG/ML VIAL ONE (21:24)
[2022-01-01 21:25] LABS: #Basophils 0.1 thou/uL (0.0-0.2); #Eosinphils 0.2 thou/uL (0.0-0.7); #Lymphocytes 2.8 thou/uL (1.20-3.40); #Monocytes 0.8 thou/uL (0.11-0.59); #Neutrophils 4.6 thou/uL (1.40-6.50); %Basophils 0.8 % (0.0-1.0); %Eosinophils 2.3 % (0.0-10.0); %Lymphocytes 32.7 % (21.0-51.0); %Neutrophils 54.2 % (42.0-75.0); Hemoglobin 13.1 g/dL (14.0-18.0); Mean Corpuscular HGB CONC 34.8 g/dL (32.0-36.0); Mean Corpuscular Hemoglobin 29.6 pg (27.0-31.0); Mean Corpuscular Volume 85.2 fL (78.0-98.0); Mean Platelet Volume 8.1 fL (7.4-10.4); Platelet Count 231 thou/uL (130-400); RBC Distribution Width 12.9 % (11.5-14.5); Red Blood Cell (RBC) Count 4.43 mill/uL (4.70-6.10); White Blood Cell (WBC) Count 8.4 thou/uL (4.8-10.8)
[2022-01-01 21:38] LABS: Bilirubin Negative (Negative); Blood, Urine Negative (Negative); Clarity Clear (Clear); Glucose, Urine (Dipstick) Normal (Negative); Ketone, Urine Negative (Negative); Leukocyte Negative Leu/uL (Negative); Nitrite Negative (Negative); Protein, Urine (Dipstick) Negative (Neg-Trace); Specific Gravity, Urine 1.028 (1.002-1.036); Urobilinogen Normal mg/dL (Less than 2); pH, Urine 5.5 (5.0-9.0)
[2022-01-01 21:45] LABS: ALT (SGPT) 21 U/L (8-55); AST (SGOT) 19 U/L (5-34); Albumin 4.2 g/dL (3.5-5.0); Alkaline Phosphatase 114 U/L (40-110); Anion Gap 15 mmol/L (10-20); BUN (Urea Nitrogen) 32 mg/dL (8.9-20.6); Bilirubin, Total 0.5 mg/dL (0.2-1.2); Calc. Creatinine Clearance 0 mL/min (70-130); Calcium 9.5 mg/dL (7.8-10.44); Carbon Dioxide 24 mmol/L (22-29); Chloride 107 mmol/L (98-107); Globulin 2.8 g/dL (2.4-3.5); Glucose 88 mg/dL (70-105); Potassium 4.2 mmol/L (3.5-5.1); Sodium 142 mmol/L (136-145)
[2022-01-01] MEDS ORDERED: HYDROcodone/Acetaminophen 10/325 mg Tablet ONE (22:27)
== END 2022-01-01 23:30 | disposition home or self-care (01) ==
LOC: ERS 19:55
DX: R33.9 Retention of urine, unspecified (principal); I10 Essential (primary) hypertension; G35 Multiple sclerosis; E78.5 Hyperlipidemia, unspecified; Z79.899 Other long term (current) drug therapy
CPT/HCPCS: 36415; 51702; 74176; 80053; 81003; 85025; 96374; 96375; J2270; J2405

== ENCOUNTER 2022-01-15 05:10 | Emergency (ER) | payer MEDICARE, MEDICAID ==
[2022-01-15 05:59] LABS: Bacteria/HPF None Seen HPF (None Seen); Bilirubin Negative (Negative); Blood, Urine Negative (Negative); Calcium Oxalate Crystals Rare HPF (None Seen); Clarity Clear (Clear); Glucose, Urine (Dipstick) Normal (Negative); Ketone, Urine Negative (Negative); Leukocyte Negative Leu/uL (Negative); Mucous/LPF Rare LPF (<2+); Nitrite Negative (Negative); Protein, Urine (Dipstick) 30 mg/dL (Neg-Trace); RBC/HPF 0-3 HPF (0-3); Specific Gravity, Urine 1.022 (1.002-1.036); Squamous Epithelial None Seen HPF (0-3); Urobilinogen Normal mg/dL (Less than 2); WBC/HPF 0-3 HPF (0-3); pH, Urine 5.5 (5.0-9.0)
[2022-01-15 06:23] LABS: Anion Gap 10 mmol/L (10-20); BUN (Urea Nitrogen) 12 mg/dL (8.9-20.6); Calc. Creatinine Clearance 0 mL/min (70-130); Calcium 9.2 mg/dL (7.8-10.44); Carbon Dioxide 27 mmol/L (22-29); Chloride 110 mmol/L (98-107); Glucose 102 mg/dL (70-105); Potassium 3.9 mmol/L (3.5-5.1); Sodium 143 mmol/L (136-145)
== END 2022-01-15 06:50 | disposition home or self-care (01) ==
LOC: ERS 05:10
DX: R33.9 Retention of urine, unspecified (principal); E78.5 Hyperlipidemia, unspecified; K50.90 Crohn's disease, unspecified, without complications; I10 Essential (primary) hypertension; G35 Multiple sclerosis; Z79.899 Other long term (current) drug therapy
CPT/HCPCS: 36415; 51702; 80048; 81003; 81015; 87086

== ENCOUNTER 2022-01-16 01:21 | Emergency (ER) | payer MEDICARE, MEDICAID ==
[2022-01-16] MEDS ORDERED: Ondansetron ODT 4 MG TAB ONE (03:11)
[2022-01-16] MEDS ORDERED: Acetaminophen 500 MG TAB ONE (03:11)
[2022-01-16 03:25] LABS: #Eosinphils 0.1 thou/uL (0.0-0.7); #Lymphocytes 1.3 thou/uL (1.20-3.40); #Monocytes 0.3 thou/uL (0.11-0.59); #Neutrophils 4.2 thou/uL (1.40-6.50); %Basophils 0.3 % (0.0-1.0); %Lymphocytes 21.7 % (21.0-51.0); %Monocytes 4.9 % (0.0-10.0); %Neutrophils 72.1 % (42.0-75.0); Hemoglobin 13.1 g/dL (14.0-18.0); Mean Corpuscular HGB CONC 34.4 g/dL (32.0-36.0); Mean Corpuscular Hemoglobin 28.8 pg (27.0-31.0); Mean Corpuscular Volume 83.6 fL (78.0-98.0); Mean Platelet Volume 7.2 fL (7.4-10.4); Platelet Count 279 thou/uL (130-400); RBC Distribution Width 12.9 % (11.5-14.5); Red Blood Cell (RBC) Count 4.55 mill/uL (4.70-6.10); White Blood Cell (WBC) Count 5.8 thou/uL (4.8-10.8)
[2022-01-16 03:37] LABS: ALT (SGPT) 13 U/L (8-55); AST (SGOT) 13 U/L (5-34); Albumin 4.3 g/dL (3.5-5.0); Alkaline Phosphatase 105 U/L (40-110); Anion Gap 14 mmol/L (10-20); BUN (Urea Nitrogen) 11 mg/dL (8.9-20.6); Bilirubin, Total 0.4 mg/dL (0.2-1.2); CK (CPK) 70 U/L (30-200); Calc. Creatinine Clearance 0 mL/min (70-130); Calcium 9.4 mg/dL (7.8-10.44); Carbon Dioxide 26 mmol/L (22-29); Chloride 107 mmol/L (98-107); Globulin 2.8 g/dL (2.4-3.5); Glucose 107 mg/dL (70-105); Potassium 3.9 mmol/L (3.5-5.1); Protein, Total 7.1 g/dL (6.0-8.3); Sodium 143 mmol/L (136-145)
[2022-01-16] MEDS ORDERED: Cyclobenzaprine 10 MG TAB ONE (03:47)
[2022-01-16] MEDS ORDERED: diphenhydrAMINE 25 MG CAP ONE (03:47)
== END 2022-01-16 04:41 | disposition home or self-care (01) ==
LOC: ERS 01:21
DX: T63.311A Toxic effect of venom of black widow spider, accidental (unintentional), initial encounter (principal); I10 Essential (primary) hypertension; E78.5 Hyperlipidemia, unspecified; G35 Multiple sclerosis; Z79.899 Other long term (current) drug therapy; Z79.51 Long term (current) use of inhaled steroids; R33.9 Retention of urine, unspecified; K50.90 Crohn's disease, unspecified, without complications
CPT/HCPCS: 36415; 51702; 80048; 80053; 81003; 81015; 82550; 85025; 87086; Q0162

== ENCOUNTER 2022-03-10 06:44 | Emergency (ER) | payer OTHER, MEDICAID | END 2022-03-10 07:24 | disposition left against medical advice (07) | LOC: ERS 06:44 | DX: Z53.21 Procedure and treatment not carried out due to patient leaving prior to being seen by health care provider (principal) ==

== ENCOUNTER 2022-03-18 12:44 | Emergency (ER) | payer OTHER ==
[2022-03-18] MEDS ORDERED: Morphine 4 MG/ML VIAL ONE (12:50)
[2022-03-18] MEDS ORDERED: Acetaminophen 500 MG TAB ONE (14:07)
[2022-03-18] MEDS ORDERED: Aspirin Chewable 81 MG TAB ONE (14:07)
[2022-03-18 14:19] LABS: SARS-CoV-2 NAA Rapid Test Not Detected (NotDetected)
[2022-03-18 14:50] LABS: #Lymphocytes 1.2 thou/uL (1.20-3.40); #Monocytes 0.4 thou/uL (0.11-0.59); #Neutrophils 3.3 thou/uL (1.40-6.50); %Basophils 0.5 % (0.0-1.0); %Eosinophils 0.7 % (0.0-10.0); %Lymphocytes 23.4 % (21.0-51.0); %Monocytes 8.8 % (0.0-10.0); %Neutrophils 66.6 % (42.0-75.0); Hemoglobin 13.7 g/dL (14.0-18.0); Mean Corpuscular HGB CONC 33.3 g/dL (32.0-36.0); Mean Corpuscular Hemoglobin 28.2 pg (27.0-31.0); Mean Corpuscular Volume 84.8 fL (78.0-98.0); Mean Platelet Volume 7.5 fL (7.4-10.4); Platelet Count 252 thou/uL (130-400); RBC Distribution Width 14.3 % (11.5-14.5); Red Blood Cell (RBC) Count 4.84 mill/uL (4.70-6.10)
[2022-03-18 15:01] LABS: PTT 28.3 sec (22.9-36.1); Prothrombin Time 13.4 sec (12.0-14.7)
[2022-03-18 15:07] LABS: ALT (SGPT) 29 U/L (8-55); AST (SGOT) 23 U/L (5-34); Albumin 4.2 g/dL (3.5-5.0); Alkaline Phosphatase 144 U/L (40-110); Anion Gap 16 mmol/L (10-20); BUN (Urea Nitrogen) 17 mg/dL (8.9-20.6); Bilirubin, Total 0.6 mg/dL (0.2-1.2); Calc. Creatinine Clearance 0 mL/min (70-130); Calcium 9.7 mg/dL (7.8-10.44); Carbon Dioxide 24 mmol/L (22-29); Chloride 103 mmol/L (98-107); Estimated GFR 108; Globulin 2.9 g/dL (2.4-3.5); Glucose 97 mg/dL (70-105); Lipase Less than 4 U/L (8-78); Magnesium 1.7 mg/dL (1.6-2.6); Potassium 3.8 mmol/L (3.5-5.1); Protein, Total 7.1 g/dL (6.0-8.3); Sodium 139 mmol/L (136-145)
[2022-03-18] MEDS ORDERED: Nitroglycerin 0.4 MG TAB 1 EACH ONE (17:23)
== END 2022-03-18 19:04 | disposition home or self-care (01) ==
LOC: ERS 12:44
DX: R07.2 Precordial pain (principal); R06.00 Dyspnea, unspecified; K44.9 Diaphragmatic hernia without obstruction or gangrene; J44.9 Chronic obstructive pulmonary disease, unspecified; Z20.822 Contact with and (suspected) exposure to COVID-19; Z79.899 Other long term (current) drug therapy
CPT/HCPCS: 71045; 71275; 83690; 83735; 84484 ×2; 85610; 85730; 93005; 94760; U0002; 36415; 80053; 84443; 85025; 96361; 96374; J2270; Q9967

== ENCOUNTER 2022-04-03 13:23 | Inpatient (IN) | payer OTHER, MEDICAID ==
[2022-04-03 14:21] LABS: Hemoglobin 14.2 g/dL (14.0-18.0); Mean Corpuscular HGB CONC 32.8 g/dL (32.0-36.0); Mean Corpuscular Hemoglobin 28.2 pg (27.0-31.0); RBC Distribution Width 13.8 % (11.5-14.5); Red Blood Cell (RBC) Count 5.04 mill/uL (4.70-6.10)
[2022-04-03] MEDS ORDERED: Morphine 4 MG/ML VIAL ONE (14:25)
[2022-04-03 14:40] LABS: Band 2 % (5-11); Eosinophils 1 % (0-10); Lymphocytes 28 % (21-51); MDiff Complete? YES; Mean Platelet Volume 10.5 fL (7.4-10.4); Monocytes 2 % (0-10); Neutrophil 67 % (42-75); Platelet Clumps SLIGHT; Platelet Count 236 thou/uL (130-400); Platelet Morphology Comment Appears Adequate; RBC Morphology Normal
[2022-04-03 14:44] LABS: ALT (SGPT) 22 U/L (8-55); AST (SGOT) 22 U/L (5-34); Albumin 4.6 g/dL (3.5-5.0); Alkaline Phosphatase 118 U/L (40-110); Anion Gap 21 mmol/L (10-20); BUN (Urea Nitrogen) 24 mg/dL (8.9-20.6); Bilirubin, Total 0.5 mg/dL (0.2-1.2); Calc. Creatinine Clearance 0 mL/min (70-130); Calcium 10.1 mg/dL (7.8-10.44); Carbon Dioxide 22 mmol/L (22-29); Chloride 104 mmol/L (98-107); Estimated GFR 63; Globulin 2.9 g/dL (2.4-3.5); Glucose 98 mg/dL (70-105); Lipase 43 U/L (8-78); Potassium 4.5 mmol/L (3.5-5.1); Protein, Total 7.5 g/dL (6.0-8.3); Sodium 142 mmol/L (136-145)
[2022-04-03] MEDS ORDERED: Famotidine 20 MG TAB ONE (17:24)
[2022-04-03] MEDS ORDERED: Famotidine 20 MG TAB PO SCH (17:30)
[2022-04-03] MEDS ORDERED: Midodrine HCl 5 MG TAB PO SCH (17:30)
[2022-04-03 17:37] LABS: Troponin I Less than 0.010 ng/mL (< 0.028)
[2022-04-03] MEDS ORDERED: Sodium Chloride 0.9% 1,000 ML IV SCH ×3 (18:00→22:00)
[2022-04-03] MEDS ORDERED: HYDROcodone/Acetaminophen 10/325 mg Tablet PO PRN (18:02)
[2022-04-03] MEDS ORDERED: Acetaminophen 500 MG TAB PO SCH ×2 (18:15→20:45)
[2022-04-03 20:23] LABS: Lactic Acid 1.4 mmol/L (0.5-2.2)
[2022-04-03] MEDS ORDERED: NOREPINEPHRINE 8 MG/250 ML-D5W 250 ML IVPB SCH (20:30)
[2022-04-03 20:31] LABS: Troponin I Less than 0.010 ng/mL (< 0.028)
[2022-04-03 20:33] LABS: Anion Gap 15 mmol/L (10-20); BUN (Urea Nitrogen) 23 mg/dL (8.9-20.6); Calc. Creatinine Clearance 0 mL/min (70-130); Calcium 7.8 mg/dL (7.8-10.44); Carbon Dioxide 22 mmol/L (22-29); Chloride 109 mmol/L (98-107); Estimated GFR 69; Glucose 100 mg/dL (70-105); Magnesium 1.7 mg/dL (1.6-2.6); Potassium 4.3 mmol/L (3.5-5.1); Sodium 142 mmol/L (136-145)
[2022-04-03] MEDS: DOPamine 400 MG/D5W 250 ML 250 ML IVPB SCH (20:43)
[2022-04-03] MEDS ORDERED: Heparin 5,000 UNITS/ML VIAL SC SCH (21:00)
[2022-04-03] MEDS: methylPREDNISolone Sod Succ/PF 125 MG/2 ML VIAL IVP SCH (21:34)
[2022-04-03] MEDS: Ondansetron PF 4 MG/2 ML Vial IVP PRN (21:34)
[2022-04-03 21:57] LABS: Bacteria/HPF None Seen HPF (None Seen); Bilirubin Negative (Negative); Blood, Urine Negative (Negative); Calcium Oxalate Crystals Rare HPF (None Seen); Clarity Clear (Clear); Glucose, Urine (Dipstick) Normal (Negative); Ketone, Urine Negative (Negative); Leukocyte Negative Leu/uL (Negative); Mucous/LPF Rare LPF (<2+); Nitrite Negative (Negative); Protein, Urine (Dipstick) 20 mg/dL (Neg-Trace); Specific Gravity, Urine 1.041 (1.002-1.036); Squamous Epithelial None Seen HPF (0-3); Urobilinogen Normal mg/dL (Less than 2); pH, Urine 5.5 (5.0-9.0)
[2022-04-03 22:00] LABS: Amphetamine Not Detected (NotDetected); Barbiturates Screen Not Detected (NotDetected); Benzodiazepine Screen Detected (NotDetected); Cocaine Metabolite Screen Not Detected (NotDetected); Methadone Not Detected (NotDetected); Methamphetamine Detected (NotDetected); Opiate Screen Detected (NotDetected); Oxycodone Screen Not Detected (NotDetected); Phencyclidine (PCP) Not Detected (NotDetected); THC/Cannabinoid Screen Detected (NotDetected); Tricyclic Screen Detected (NotDetected); Urine Culture Reflex Yes Yes
[2022-04-03 22:05] LABS: #Basophils 0.1 thou/uL (0.0-0.2); #Eosinphils 0.1 thou/uL (0.0-0.7); #Lymphocytes 3.3 thou/uL (1.20-3.40); #Monocytes 0.7 thou/uL (0.11-0.59); #Neutrophils 6.7 thou/uL (1.40-6.50); %Basophils 0.6 % (0.0-1.0); %Lymphocytes 29.9 % (21.0-51.0); %Monocytes 6.6 % (0.0-10.0); %Neutrophils 61.8 % (42.0-75.0); Hemoglobin 11.8 g/dL (14.0-18.0); Mean Corpuscular HGB CONC 33.5 g/dL (32.0-36.0); Mean Corpuscular Volume 86.6 fL (78.0-98.0); Platelet Count 199 thou/uL (130-400); RBC Distribution Width 13.6 % (11.5-14.5); Red Blood Cell (RBC) Count 4.08 mill/uL (4.70-6.10); White Blood Cell (WBC) Count 10.9 thou/uL (4.8-10.8)
[2022-04-03 22:07] LABS: Actual Bicarbonate (HCO3a) 19.6 mEq/L (22-28); Analyzer IN Cardio ER; Base Excess (BEa) -6.6 mEq/L (-2.0 to +3.0); CO2 Tension 41.8 mmHg (35.0-45.0); Calcium, Ionized (arterial) 1.11 mmol/L (1.12-1.30); Carboxyhemoglobin (COHb) 0.3 gm% (0.0-3.0); Hemoglobin (Hb) 12.8 g/dL (14.0-18.0); O2 Tension (PaO2), arterial 72.8 mmHg (80.0-100.0); Potassium - ABG Lab 4.31 mmol/L (3.70-5.30); pH, Arterial 7.29 (7.35-7.45)
[2022-04-03 22:24] LABS: Puncture Site RRA
[2022-04-03] MEDS ORDERED: Meropenem 1 GM in Sodium Chloride 0.9% 100 ML IVPB SCH (23:00)
[2022-04-03] MEDS ORDERED: VANCOMYCIN 2 GRAM/500 ML BAG 2 GM in Premix Bag 1 BAG IVPB SCH (23:59)
[2022-04-04] MEDS: Sodium Chloride 0.9% 1,000 ML IV SCH ×2 (00:18→06:16)
[2022-04-04 00:40] LABS: Troponin I Less than 0.010 ng/mL (< 0.028)
[2022-04-04] MEDS: Vasopressin 20 UNIT, Admixture Fee 1 EACH in Sodium Chloride 0.9% 50 ML IV SCH ×3 (01:07→23:48)
[2022-04-04 01:29] LABS: SARS-CoV-2 NAA Rapid Test Not Detected (NotDetected)
[2022-04-04] MEDS: DOPamine 400 MG/D5W 250 ML 250 ML IVPB SCH ×7 (01:34→23:49)
[2022-04-04] MEDS: NOREPINEPHRINE 8 MG/250 ML-D5W 250 ML IVPB SCH ×7 (01:34→23:49)
[2022-04-04] MEDS: EPINEPHrine 4 MG in Dextrose 5% in Water 250 ML IV SCH ×3 (02:49→19:36)
[2022-04-04] MEDS ORDERED: Sodium Bicarbonate 150 MEQ in Dextrose 5% in Water 1,000 ML IV SCH (04:15)
[2022-04-04] MEDS ORDERED: Meropenem 1 GM in Sodium Chloride 0.9% 100 ML IVPB SCH (06:00)
[2022-04-04] MEDS ORDERED: Levothyroxine 150 MCG TAB PO SCH (06:00)
[2022-04-04] MEDS: Ondansetron PF 4 MG/2 ML Vial IVP PRN ×3 (06:10→21:36)
[2022-04-04 07:06] LABS: Band 4 % (5-11); Hemoglobin 13.9 g/dL (14.0-18.0); Lymphocytes 18 % (21-51); MDiff Complete? YES; Mean Corpuscular HGB CONC 31.8 g/dL (32.0-36.0); Mean Corpuscular Hemoglobin 27.7 pg (27.0-31.0); Mean Platelet Volume 9.8 fL (7.4-10.4); Monocytes 12 % (0-10); Neutrophil 63 % (42-75); Platelet Count 279 thou/uL (130-400); Platelet Morphology Comment Appears Adequate; RBC Distribution Width 13.7 % (11.5-14.5); RBC Morphology Normal; Reactive Lymphocytes 3 % (0-10); Red Blood Cell (RBC) Count 5.02 mill/uL (4.70-6.10)
[2022-04-04] MEDS: Mometasone 100 MCG/Formoterol 5 MCG 120 PUFF INHALER INH SCH (07:17)
[2022-04-04 07:43] LABS: ALT (SGPT) 59 U/L (8-55); AST (SGOT) 72 U/L (5-34); Alkaline Phosphatase 118 U/L (40-110); Anion Gap 18 mmol/L (10-20); BUN (Urea Nitrogen) 32 mg/dL (8.9-20.6); Bilirubin, Total 1.8 mg/dL (0.2-1.2); Calc. Creatinine Clearance 50 mL/min (70-130); Calcium 7.7 mg/dL (7.8-10.44); Carbon Dioxide 14 mmol/L (22-29); Chloride 107 mmol/L (98-107); Estimated GFR 32; Globulin 2.5 g/dL (2.4-3.5); Glucose 432 mg/dL (70-105); Potassium 5.2 mmol/L (3.5-5.1); Protein, Total 6.5 g/dL (6.0-8.3); Sodium 134 mmol/L (136-145)
[2022-04-04] MEDS ORDERED: Magnesium 2 GM/50 ML(in water) 2 GM in Premix Bag 1 BAG IVPB SCH (09:00)
[2022-04-04] MEDS ORDERED: methylPREDNISolone Sod Succ/PF 125 MG/2 ML VIAL IVP SCH ×2 (09:00→21:02)
[2022-04-04] MEDS ORDERED: Hydrocortisone Sod Succ/PF 100 mg/2 ml Vial IVP SCH (09:00)
[2022-04-04] MEDS ORDERED: Sodium Chloride 0.9% 1,000 ML IV SCH (09:00)
[2022-04-04] MEDS ORDERED: Dextrose 50% Abboject 50 ML SYRINGE SLOW IVP PRN (09:22)
[2022-04-04] MEDS ORDERED: Dextrose 5% in Water 1,000 ML IV PRN (09:30)
[2022-04-04] MEDS ORDERED: HUMULIN R 100 UNITS in Sodium Chloride 0.9% 100 ML IVPB SCH ×2 (09:30→11:30)
[2022-04-04] MEDS: Sodium Bicarbonate 150 MEQ in Dextrose 5% in Water 1,000 ML IV SCH ×2 (09:52→19:35)
[2022-04-04 10:40] LABS: Lactic Acid 3.3 mmol/L (0.5-2.2)
[2022-04-04] MEDS ORDERED: INSULIN REGULAR IN 0.9 % NACL 100 UNIT in Premix Bag 1 BAG IVPB SCH (11:30)
[2022-04-04] MEDS ORDERED: INSULIN REGULAR IN 0.9 % NACL 100 UNIT in Sodium Chloride 0.9% 100 ML IVPB SCH (11:30)
[2022-04-04] MEDS ORDERED: VANCOMYCIN 1.25 GM/250 ML BAG 1.25 GM in Premix Bag 1 BAG IVPB SCH (12:00)
[2022-04-04 12:40] LABS: Anion Gap 16 mmol/L (10-20); BUN (Urea Nitrogen) 35 mg/dL (8.9-20.6); Calc. Creatinine Clearance 45 mL/min (70-130); Calcium 7.2 mg/dL (7.8-10.44); Carbon Dioxide 15 mmol/L (22-29); Chloride 106 mmol/L (98-107); Estimated GFR 28; Glucose 405 mg/dL (70-105); Potassium 4.4 mmol/L (3.5-5.1); Sodium 133 mmol/L (136-145)
[2022-04-04] MEDS ORDERED: Vancomycin Sliding Scale IVPB PRN (12:48)
[2022-04-04] MEDS: Hydrocortisone Sod Succ/PF 100 mg/2 ml Vial IVP SCH ×2 (15:17→20:11)
[2022-04-04 16:20] LABS: Hemoglobin A1c 5.3 % (4.0-6.0)
[2022-04-04 16:28] LABS: Lactic Acid 3.5 mmol/L (0.5-2.2)
[2022-04-04 16:32] LABS: Anion Gap 16 mmol/L (10-20); BUN (Urea Nitrogen) 36 mg/dL (8.9-20.6); Calc. Creatinine Clearance 42 mL/min (70-130); Calcium 7.5 mg/dL (7.8-10.44); Carbon Dioxide 16 mmol/L (22-29); Chloride 105 mmol/L (98-107); Estimated GFR 26; Glucose 232 mg/dL (70-105); Potassium 3.8 mmol/L (3.5-5.1); Sodium 133 mmol/L (136-145)
[2022-04-04] MEDS ORDERED: HUMULIN R 500 UNITS in Sodium Chloride 0.9% 500 ML IVPB SCH (18:00)
[2022-04-04] MEDS ORDERED: SUMAtriptan Succinate 6 MG/0.5 ML VIAL SC PRN (18:15)
[2022-04-04] MEDS: Meropenem 1 GM in Sodium Chloride 0.9% 100 ML IVPB SCH (18:21)
[2022-04-04] MEDS: Heparin 5,000 UNITS/ML VIAL SC SCH (20:12)
[2022-04-04 20:16] LABS: Anion Gap 19 mmol/L (10-20); BUN (Urea Nitrogen) 38 mg/dL (8.9-20.6); Calc. Creatinine Clearance 43 mL/min (70-130); Calcium 7.3 mg/dL (7.8-10.44); Carbon Dioxide 13 mmol/L (22-29); Chloride 106 mmol/L (98-107); Estimated GFR 27; Glucose 135 mg/dL (70-105); Potassium 4.1 mmol/L (3.5-5.1); Sodium 134 mmol/L (136-145)
[2022-04-04] MEDS: methylPREDNISolone Sod Succ/PF 125 MG/2 ML VIAL IVP SCH (21:21)
[2022-04-04 23:52] LABS: Lactic Acid 3.5 mmol/L (0.5-2.2)
[2022-04-04 23:54] LABS: Vancomycin, Random 33.2 ug/mL (See Comment)
[2022-04-05] MEDS: EPINEPHrine 4 MG in Dextrose 5% in Water 250 ML IV SCH ×4 (00:25→21:27)
[2022-04-05] MEDS: Dextrose 10% in Water 1,000 ML IV SCH ×2 (00:25→13:17)
[2022-04-05] MEDS ORDERED: Sodium Bicarb 50 MEQ/50 ML VIAL ONE (01:27)
[2022-04-05] MEDS ORDERED: Succinylcholine 200 MG/10 ml SYRINGE FS SCH (01:30)
[2022-04-05] MEDS ORDERED: Calcium Gluc 4.6 MEQ/10 ML (100 MG/ML) SLOW IVP SCH (01:45)
[2022-04-05] MEDS ORDERED: Sodium Bicarb 50 MEQ/50 ML VIAL IVP SCH (01:45)
[2022-04-05] MEDS ORDERED: Fentanyl CADD 100 ML ONE (01:55)
[2022-04-05 01:57] LABS: #Basophils 0.1 thou/uL (0.0-0.2); #Lymphocytes 3.4 thou/uL (1.20-3.40); #Monocytes 2.6 thou/uL (0.11-0.59); #Neutrophils 19.3 thou/uL (1.40-6.50); %Basophils 0.3 % (0.0-1.0); %Eosinophils 0.1 % (0.0-10.0); %Lymphocytes 13.3 % (21.0-51.0); %Neutrophils 76.2 % (42.0-75.0); Hemoglobin 11.5 g/dL (14.0-18.0); Mean Corpuscular HGB CONC 34.2 g/dL (32.0-36.0); Mean Corpuscular Hemoglobin 29.2 pg (27.0-31.0); Mean Corpuscular Volume 85.3 fL (78.0-98.0); Mean Platelet Volume 9.4 fL (7.4-10.4); Platelet Count 223 thou/uL (130-400); RBC Distribution Width 13.6 % (11.5-14.5); Red Blood Cell (RBC) Count 3.94 mill/uL (4.70-6.10); White Blood Cell (WBC) Count 25.3 thou/uL (4.8-10.8)
[2022-04-05] MEDS: Fentanyl CADD 100 ML IV SCH (01:57)
[2022-04-05] MEDS ORDERED: Propofol BOLUS 1,000 MG/100 ML VIAL IV PRN (02:00)
[2022-04-05] MEDS ORDERED: DISCONTINUE PREVIOUS NARCOTIC PAIN MEDICATIONS AND BENZODIAZEPINES FS SCH (02:00)
[2022-04-05] MEDS ORDERED: Fentanyl BOLUS 250 ML IVPB PRN (02:00)
[2022-04-05 02:06] LABS: Actual Bicarbonate (HCO3a) 16.1 mEq/L (22-28); Analyzer IN Cardio ER; Base Excess (BEa) -16.6 mEq/L (-2.0 to +3.0); Calcium, Ionized (arterial) 1.06 mmol/L (1.12-1.30); Carboxyhemoglobin (COHb) 0.3 gm% (0.0-3.0); Hemoglobin (Hb) 12.6 g/dL (14.0-18.0); Potassium - ABG Lab 4.37 mmol/L (3.70-5.30)
[2022-04-05 02:08] LABS: CO2 Tension 74.3 mmHg (35.0-45.0); O2 Tension (PaO2), arterial 47.2 mmHg (80.0-100.0); pH, Arterial 6.95 (7.35-7.45)
[2022-04-05 02:09] LABS: Puncture Site Arterial Line
[2022-04-05 02:12] LABS: ALT (SGPT) 65 U/L (8-55); AST (SGOT) 59 U/L (5-34); Albumin 3.2 g/dL (3.5-5.0); Alkaline Phosphatase 89 U/L (40-110); Anion Gap 19 mmol/L (10-20); BUN (Urea Nitrogen) 40 mg/dL (8.9-20.6); Bilirubin, Total 0.6 mg/dL (0.2-1.2); Calc. Creatinine Clearance 44 mL/min (70-130); Calcium 6.8 mg/dL (7.8-10.44); Carbon Dioxide 19 mmol/L (22-29); Chloride 99 mmol/L (98-107); Estimated GFR 28; Globulin 1.9 g/dL (2.4-3.5); Glucose 182 mg/dL (70-105); Potassium 4.3 mmol/L (3.5-5.1); Protein, Total 5.1 g/dL (6.0-8.3); Sodium 133 mmol/L (136-145)
[2022-04-05 02:13] LABS: Lactic Acid 5.9 mmol/L (0.5-2.2)
[2022-04-05] MEDS: Hydrocortisone Sod Succ/PF 100 mg/2 ml Vial IVP SCH ×4 (02:47→21:25)
[2022-04-05] MEDS: NOREPINEPHRINE 8 MG/250 ML-D5W 250 ML IVPB SCH ×6 (03:09→22:47)
[2022-04-05] MEDS: Propofol 1,000 MG/100 ML VIAL IV PRN ×3 (03:14→18:52)
[2022-04-05 03:19] LABS: Actual Bicarbonate (HCO3a) 21.1 mEq/L (22-28); Analyzer IN Cardio ER; Base Excess (BEa) -8.3 mEq/L (-2.0 to +3.0); Calcium, Ionized (arterial) 1.04 mmol/L (1.12-1.30); Carboxyhemoglobin (COHb) 0.3 gm% (0.0-3.0); Hemoglobin (Hb) 12.8 g/dL (14.0-18.0); Potassium - ABG Lab 4.09 mmol/L (3.70-5.30)
[2022-04-05 03:22] LABS: CO2 Tension 61.5 mmHg (35.0-45.0); pH, Arterial 7.15 (7.35-7.45)
[2022-04-05 03:23] LABS: O2 Tension (PaO2), arterial 50.9 mmHg (80.0-100.0)
[2022-04-05] MEDS: DOPamine 400 MG/D5W 250 ML 250 ML IVPB SCH ×5 (03:23→22:48)
[2022-04-05 03:25] LABS: ALV-art Gradient 585.225 mmHg (0-20); Puncture Site Arterial Line
[2022-04-05] MEDS ORDERED: Furosemide 40 MG/4 ML VIAL SLOW IVP SCH (04:15)
[2022-04-05] MEDS: Sodium Bicarbonate 150 MEQ in Dextrose 5% in Water 1,000 ML IV SCH ×2 (05:12→15:31)
[2022-04-05] MEDS: Vasopressin 20 UNIT, Admixture Fee 1 EACH in Sodium Chloride 0.9% 50 ML IV SCH ×2 (05:12→16:28)
[2022-04-05] MEDS: Levothyroxine Sodium 100 MCG TAB PO SCH (05:13)
[2022-04-05] MEDS: Meropenem 1 GM in Sodium Chloride 0.9% 100 ML IVPB SCH ×2 (05:25→17:52)
[2022-04-05] MEDS: Mometasone 100 MCG/Formoterol 5 MCG 120 PUFF INHALER INH SCH (06:40)
[2022-04-05 08:20] LABS: #Lymphocytes 2.3 thou/uL (1.20-3.40); #Monocytes 1.4 thou/uL (0.11-0.59); #Neutrophils 17.1 thou/uL (1.40-6.50); %Basophils 0.2 % (0.0-1.0); %Eosinophils 0.1 % (0.0-10.0); %Lymphocytes 10.9 % (21.0-51.0); %Monocytes 6.8 % (0.0-10.0); Hemoglobin 12.5 g/dL (14.0-18.0); Mean Corpuscular HGB CONC 33.6 g/dL (32.0-36.0); Mean Corpuscular Hemoglobin 28.3 pg (27.0-31.0); Mean Corpuscular Volume 84.1 fL (78.0-98.0); Mean Platelet Volume 9.4 fL (7.4-10.4); Platelet Count 250 thou/uL (130-400); RBC Distribution Width 13.6 % (11.5-14.5); Red Blood Cell (RBC) Count 4.43 mill/uL (4.70-6.10); White Blood Cell (WBC) Count 20.9 thou/uL (4.8-10.8)
[2022-04-05 08:28] LABS: Lactic Acid 2.9 mmol/L (0.5-2.2)
[2022-04-05 08:31] LABS: ALT (SGPT) 74 U/L (8-55); AST (SGOT) 66 U/L (5-34); Albumin 3.2 g/dL (3.5-5.0); Alkaline Phosphatase 102 U/L (40-110); Anion Gap 16 mmol/L (10-20); BUN (Urea Nitrogen) 39 mg/dL (8.9-20.6); Bilirubin, Total 0.9 mg/dL (0.2-1.2); Calc. Creatinine Clearance 61 mL/min (70-130); Calcium 6.9 mg/dL (7.8-10.44); Carbon Dioxide 20 mmol/L (22-29); Chloride 97 mmol/L (98-107); Estimated GFR 36; Globulin 2.1 g/dL (2.4-3.5); Glucose 149 mg/dL (70-105); Magnesium 1.7 mg/dL (1.6-2.6); Phosphorus 3.9 mg/dL (2.3-4.7); Potassium 3.3 mmol/L (3.5-5.1); Protein, Total 5.3 g/dL (6.0-8.3); Sodium 130 mmol/L (136-145)
[2022-04-05] MEDS ORDERED: Potassium Chloride 20 MEQ TAB PER TUBE SCH (08:45)
[2022-04-05 08:58] LABS: Actual Bicarbonate (HCO3a) 21.2 mEq/L (22-28); Analyzer IN Cardio ER; Base Excess (BEa) -3.9 mEq/L (-2.0 to +3.0); Calcium, Ionized (arterial) 0.99 mmol/L (1.12-1.30); Carboxyhemoglobin (COHb) 0.3 gm% (0.0-3.0); Hemoglobin (Hb) 13.4 g/dL (14.0-18.0); O2 Tension (PaO2), arterial 58.8 mmHg (80.0-100.0); Potassium - ABG Lab 2.93 mmol/L (3.70-5.30); Puncture Site Arterial Line; pH, Arterial 7.35 (7.35-7.45)
[2022-04-05] MEDS ORDERED: CALCIUM GLUC 1GM/NS 50ML 1 GM in Premix Bag 1 BAG IVPB SCH (09:00)
[2022-04-05] MEDS ORDERED: Magnesium 2 GM/50 ML(in water) 2 GM in Premix Bag 1 BAG IVPB SCH (09:00)
[2022-04-05] MEDS: Heparin 5,000 UNITS/ML VIAL SC SCH ×2 (09:17→21:25)
[2022-04-05 11:36] LABS: Vancomycin, Random 27.4 ug/mL (See Comment)
[2022-04-05] MEDS: Midazolam HCl 2 mg/2 ml Vial SLOW IVP PRN (21:00)
[2022-04-06] MEDS: Vasopressin 20 UNIT, Admixture Fee 1 EACH in Sodium Chloride 0.9% 50 ML IV SCH ×3 (00:05→18:26)
[2022-04-06] MEDS: Midazolam HCl 2 mg/2 ml Vial SLOW IVP PRN ×3 (00:06→04:13)
[2022-04-06] MEDS: Sodium Bicarbonate 150 MEQ in Dextrose 5% in Water 1,000 ML IV SCH (01:03)
[2022-04-06] MEDS: Propofol 1,000 MG/100 ML VIAL IV PRN ×6 (01:34→21:11)
[2022-04-06] MEDS: NOREPINEPHRINE 8 MG/250 ML-D5W 250 ML IVPB SCH ×5 (03:00→18:36)
[2022-04-06] MEDS: Dextrose 10% in Water 1,000 ML IV SCH (03:01)
[2022-04-06] MEDS: Hydrocortisone Sod Succ/PF 100 mg/2 ml Vial IVP SCH ×4 (03:02→21:11)
[2022-04-06 03:52] LABS: #Lymphocytes 1.6 thou/uL (1.20-3.40); #Monocytes 2.1 thou/uL (0.11-0.59); #Neutrophils 15.4 thou/uL (1.40-6.50); %Basophils 0.1 % (0.0-1.0); %Lymphocytes 8.5 % (21.0-51.0); %Monocytes 11.1 % (0.0-10.0); %Neutrophils 80.4 % (42.0-75.0); Hemoglobin 12.4 g/dL (14.0-18.0); Mean Corpuscular Hemoglobin 29.2 pg (27.0-31.0); Mean Corpuscular Volume 83.3 fL (78.0-98.0); Mean Platelet Volume 10.2 fL (7.4-10.4); Platelet Count 211 thou/uL (130-400); RBC Distribution Width 13.8 % (11.5-14.5); Red Blood Cell (RBC) Count 4.24 mill/uL (4.70-6.10); White Blood Cell (WBC) Count 19.2 thou/uL (4.8-10.8)
[2022-04-06 04:14] LABS: Anion Gap 19 mmol/L (10-20); BUN (Urea Nitrogen) 40 mg/dL (8.9-20.6); Calc. Creatinine Clearance 82 mL/min (70-130); Carbon Dioxide 22 mmol/L (22-29); Chloride 86 mmol/L (98-107); Estimated GFR 52; Glucose 197 mg/dL (70-105); Magnesium 1.9 mg/dL (1.6-2.6); Potassium 3.3 mmol/L (3.5-5.1); Sodium 124 mmol/L (136-145)
[2022-04-06] MEDS: EPINEPHrine 4 MG in Dextrose 5% in Water 250 ML IV SCH (05:43)
[2022-04-06] MEDS: Meropenem 1 GM in Sodium Chloride 0.9% 100 ML IVPB SCH ×3 (05:43→22:31)
[2022-04-06] MEDS: DOPamine 400 MG/D5W 250 ML 250 ML IVPB SCH ×3 (05:44→18:27)
[2022-04-06] MEDS: Levothyroxine Sodium 100 MCG TAB PO SCH (05:44)
[2022-04-06] MEDS: Mometasone 100 MCG/Formoterol 5 MCG 120 PUFF INHALER INH SCH (06:56)
[2022-04-06] MEDS ORDERED: Electrolyte Replacement Protocol 1 EACH FS SCH (08:45)
[2022-04-06] MEDS ORDERED: Magnesium 2 GM/50 ML(in water) 2 GM in Premix Bag 1 BAG IVPB SCH (09:00)
[2022-04-06] MEDS ORDERED: Furosemide 40 MG/4 ML VIAL SLOW IVP SCH (09:00)
[2022-04-06] MEDS: Heparin 5,000 UNITS/ML VIAL SC SCH ×2 (09:19→21:05)
[2022-04-06] MEDS: Pantoprazole 40 MG VIAL IVP SCH (09:19)
[2022-04-06 09:28] LABS: Analyzer IN Cardio ER; Base Excess (BEa) -4.7 mEq/L (-2.0 to +3.0); CO2 Tension 53.8 mmHg (35.0-45.0); Calcium, Ionized (arterial) 0.94 mmol/L (1.12-1.30); Carboxyhemoglobin (COHb) 0.3 gm% (0.0-3.0); O2 Tension (PaO2), arterial 74.2 mmHg (80.0-100.0); Potassium - ABG Lab 3.43 mmol/L (3.70-5.30)
[2022-04-06 09:29] LABS: Puncture Site Arterial Line; pH, Arterial 7.25 (7.35-7.45)
[2022-04-06] MEDS: Potassium Chloride 20 MEQ in Premix Bag 1 BAG IVPB SCH ×2 (09:57→11:33)
[2022-04-06] MEDS ORDERED: Polyethylene Glycol 3350 17 GM Packet PER TUBE SCH (10:30)
[2022-04-06] MEDS ORDERED: Insulin Glargine 30 UNITS/0.3 ML VIAL SC SCH (10:30)
[2022-04-06] MEDS ORDERED: Senokot S 8.6-50 MG TAB PO SCH (10:30)
[2022-04-06] MEDS: Insulin Regular 300 UNITS/3 ML VIAL SC PRN ×2 (11:18→15:30)
[2022-04-06 12:29] LABS: Vancomycin, Random 10.9 ug/mL (See Comment)
[2022-04-06] MEDS ORDERED: VANCOMYCIN 1.25 GM/250 ML BAG 1.25 GM in Premix Bag 1 BAG IVPB SCH (12:45)
[2022-04-06 17:40] LABS: Actual Bicarbonate (HCO3a) 25.9 mEq/L (22-28); Analyzer IN Cardio ER; Base Excess (BEa) 2.2 mEq/L (-2.0 to +3.0); CO2 Tension 37.4 mmHg (35.0-45.0); Calcium, Ionized (arterial) 0.92 mmol/L (1.12-1.30); Carboxyhemoglobin (COHb) 0.3 gm% (0.0-3.0); Potassium - ABG Lab 3.77 mmol/L (3.70-5.30); pH, Arterial 7.46 (7.35-7.45)
[2022-04-06 17:41] LABS: O2 Tension (PaO2), arterial 47.2 mmHg (80.0-100.0); Puncture Site Arterial Line
[2022-04-06] MEDS ORDERED: Bisacodyl 10 MG SUPP PR SCH (18:15)
[2022-04-06] MEDS: Fentanyl CADD 100 ML IV SCH (21:05)
[2022-04-06] MEDS: Senokot S 8.6-50 MG TAB PO SCH (21:08)
[2022-04-07] MEDS: DOPamine 400 MG/D5W 250 ML 250 ML IVPB SCH ×4 (00:57→23:43)
[2022-04-07] MEDS: Propofol 1,000 MG/100 ML VIAL IV PRN ×5 (00:57→19:18)
[2022-04-07] MEDS: NOREPINEPHRINE 8 MG/250 ML-D5W 250 ML IVPB SCH ×2 (03:18→12:40)
[2022-04-07] MEDS: Midazolam HCl 2 mg/2 ml Vial SLOW IVP PRN (03:18)
[2022-04-07] MEDS: Hydrocortisone Sod Succ/PF 100 mg/2 ml Vial IVP SCH ×4 (03:19→21:40)
[2022-04-07] MEDS: Meropenem 1 GM in Sodium Chloride 0.9% 100 ML IVPB SCH ×3 (04:59→21:34)
[2022-04-07] MEDS: Levothyroxine Sodium 100 MCG TAB PO SCH (05:00)
[2022-04-07] MEDS: Vasopressin 20 UNIT, Admixture Fee 1 EACH in Sodium Chloride 0.9% 50 ML IV SCH ×3 (05:15→20:13)
[2022-04-07] MEDS: Mometasone 100 MCG/Formoterol 5 MCG 120 PUFF INHALER INH SCH (07:12)
[2022-04-07 07:59] LABS: Actual Bicarbonate (HCO3a) 26.5 mEq/L (22-28); Analyzer IN Cardio ER; Base Excess (BEa) 3.4 mEq/L (-2.0 to +3.0); CO2 Tension 34.7 mmHg (35.0-45.0); Calcium, Ionized (arterial) 0.95 mmol/L (1.12-1.30); Carboxyhemoglobin (COHb) 0.3 gm% (0.0-3.0); Hemoglobin (Hb) 11.4 g/dL (14.0-18.0); O2 Tension (PaO2), arterial 79.6 mmHg (80.0-100.0); Potassium - ABG Lab 3.51 mmol/L (3.70-5.30)
[2022-04-07 08:06] LABS: ALV-art Gradient 447.425 mmHg (0-20); Puncture Site Arterial Line
[2022-04-07] MEDS ORDERED: Furosemide 40 MG/4 ML VIAL SLOW IVP SCH (09:30)
[2022-04-07] MEDS: Polyethylene Glycol 3350 17 GM Packet PER TUBE SCH (09:52)
[2022-04-07] MEDS: Heparin 5,000 UNITS/ML VIAL SC SCH ×2 (09:54→21:35)
[2022-04-07] MEDS: Insulin Glargine 30 UNITS/0.3 ML VIAL SC SCH (09:57)
[2022-04-07] MEDS: Insulin Regular 300 UNITS/3 ML VIAL SC PRN (09:58)
[2022-04-07] MEDS: Senokot S 8.6-50 MG TAB PO SCH ×2 (09:59→21:34)
[2022-04-07] MEDS: Pantoprazole 40 MG VIAL IVP SCH (10:02)
[2022-04-07 10:20] LABS: #Lymphocytes 0.9 thou/uL (1.20-3.40); #Monocytes 0.6 thou/uL (0.11-0.59); #Neutrophils 10.3 thou/uL (1.40-6.50); %Eosinophils 0.3 % (0.0-10.0); %Lymphocytes 7.8 % (21.0-51.0); %Monocytes 5.3 % (0.0-10.0); %Neutrophils 86.6 % (42.0-75.0); Hemoglobin 10.7 g/dL (14.0-18.0); Mean Corpuscular HGB CONC 33.7 g/dL (32.0-36.0); Mean Platelet Volume 9.6 fL (7.4-10.4); Platelet Count 129 thou/uL (130-400); RBC Distribution Width 13.5 % (11.5-14.5); Red Blood Cell (RBC) Count 3.82 mill/uL (4.70-6.10); White Blood Cell (WBC) Count 11.9 thou/uL (4.8-10.8)
[2022-04-07 10:40] LABS: ALT (SGPT) 47 U/L (8-55); AST (SGOT) 36 U/L (5-34); Alkaline Phosphatase 90 U/L (40-110); Anion Gap 14 mmol/L (10-20); BUN (Urea Nitrogen) 37 mg/dL (8.9-20.6); Bilirubin, Total 0.8 mg/dL (0.2-1.2); Calc. Creatinine Clearance 140 mL/min (70-130); Calcium 7.4 mg/dL (7.8-10.44); Carbon Dioxide 30 mmol/L (22-29); Chloride 83 mmol/L (98-107); Estimated GFR 99; Globulin 2.4 g/dL (2.4-3.5); Glucose 130 mg/dL (70-105); Potassium 3.7 mmol/L (3.5-5.1); Protein, Total 5.4 g/dL (6.0-8.3); Sodium 123 mmol/L (136-145)
[2022-04-07 11:02] LABS: Vancomycin, Random 9.5 ug/mL (See Comment)
[2022-04-07] MEDS: Fentanyl CADD 100 ML IV SCH (14:32)
[2022-04-07 15:46] LABS: Anion Gap 16 mmol/L (10-20); BUN (Urea Nitrogen) 37 mg/dL (8.9-20.6); Calc. Creatinine Clearance 153 mL/min (70-130); Calcium 7.6 mg/dL (7.8-10.44); Carbon Dioxide 30 mmol/L (22-29); Chloride 82 mmol/L (98-107); Estimated GFR 108; Glucose 126 mg/dL (70-105); Potassium 3.8 mmol/L (3.5-5.1); Sodium 124 mmol/L (136-145)
[2022-04-07 20:40] LABS: Potassium 3.5 mmol/L (3.5-5.1)
[2022-04-07] MEDS ORDERED: Potassium Chloride 20 MEQ TAB PER TUBE SCH (21:00)
[2022-04-08] MEDS: Midazolam HCl 2 mg/2 ml Vial SLOW IVP PRN ×2 (02:21→05:48)
[2022-04-08] MEDS: Propofol 1,000 MG/100 ML VIAL IV PRN ×5 (02:22→18:22)
[2022-04-08] MEDS: Hydrocortisone Sod Succ/PF 100 mg/2 ml Vial IVP SCH ×4 (02:25→21:04)
[2022-04-08 04:48] LABS: #Lymphocytes 0.6 thou/uL (1.20-3.40); #Monocytes 0.5 thou/uL (0.11-0.59); #Neutrophils 8.7 thou/uL (1.40-6.50); %Eosinophils 0.2 % (0.0-10.0); %Lymphocytes 6.2 % (21.0-51.0); %Monocytes 4.8 % (0.0-10.0); %Neutrophils 88.8 % (42.0-75.0); Mean Corpuscular HGB CONC 34.4 g/dL (32.0-36.0); Mean Corpuscular Hemoglobin 28.4 pg (27.0-31.0); Mean Corpuscular Volume 82.7 fL (78.0-98.0); Mean Platelet Volume 10.6 fL (7.4-10.4); Platelet Count 114 thou/uL (130-400); RBC Distribution Width 13.4 % (11.5-14.5); Red Blood Cell (RBC) Count 3.53 mill/uL (4.70-6.10); White Blood Cell (WBC) Count 9.8 thou/uL (4.8-10.8)
[2022-04-08 04:57] LABS: ALT (SGPT) 40 U/L (8-55); AST (SGOT) 41 U/L (5-34); Albumin 3.1 g/dL (3.5-5.0); Alkaline Phosphatase 97 U/L (40-110); Anion Gap 16 mmol/L (10-20); BUN (Urea Nitrogen) 30 mg/dL (8.9-20.6); Bilirubin, Total 0.9 mg/dL (0.2-1.2); Calc. Creatinine Clearance 184 mL/min (70-130); Calcium 7.7 mg/dL (7.8-10.44); Carbon Dioxide 31 mmol/L (22-29); Chloride 82 mmol/L (98-107); Estimated GFR 115; Globulin 2.7 g/dL (2.4-3.5); Glucose 115 mg/dL (70-105); Magnesium 2.6 mg/dL (1.6-2.6); Potassium 3.6 mmol/L (3.5-5.1); Protein, Total 5.8 g/dL (6.0-8.3); Sodium 125 mmol/L (136-145)
[2022-04-08] MEDS: Levothyroxine Sodium 100 MCG TAB PO SCH (05:30)
[2022-04-08] MEDS: Meropenem 1 GM in Sodium Chloride 0.9% 100 ML IVPB SCH ×3 (05:30→21:04)
[2022-04-08] MEDS: DOPamine 400 MG/D5W 250 ML 250 ML IVPB SCH ×2 (07:30→14:21)
[2022-04-08] MEDS: Mometasone 100 MCG/Formoterol 5 MCG 120 PUFF INHALER INH SCH (07:57)
[2022-04-08] MEDS ORDERED: Albumin 25% 25 GM/100 ML BOT IVPB SCH (08:00)
[2022-04-08 08:06] LABS: Actual Bicarbonate (HCO3a) 34.7 mEq/L (22-28); Base Excess (BEa) 10.1 mEq/L (-2.0 to +3.0); CO2 Tension 45.5 mmHg (35.0-45.0); Calcium, Ionized (arterial) 0.97 mmol/L (1.12-1.30); O2 Tension (PaO2), arterial 69.5 mmHg (80.0-100.0); Potassium - ABG Lab 3.42 mmol/L (3.70-5.30)
[2022-04-08 08:08] LABS: ALV-art Gradient 408.375 mmHg (0-20); Puncture Site Arterial Line
[2022-04-08] MEDS: Pantoprazole 40 MG VIAL IVP SCH (10:10)
[2022-04-08] MEDS: Heparin 5,000 UNITS/ML VIAL SC SCH ×2 (10:12→21:03)
[2022-04-08] MEDS: Insulin Glargine 30 UNITS/0.3 ML VIAL SC SCH (10:13)
[2022-04-08] MEDS: Potassium Chloride 20 MEQ TAB PER TUBE SCH ×2 (10:14→21:03)
[2022-04-08] MEDS: Polyethylene Glycol 3350 17 GM Packet PER TUBE SCH (10:14)
[2022-04-08] MEDS: Senokot S 8.6-50 MG TAB PO SCH ×2 (10:15→21:03)
[2022-04-08] MEDS ORDERED: Midazolam In 0.9 % NaCl/PF 100 ML IVPB SCH (11:00)
[2022-04-08] MEDS: Vasopressin 20 UNIT, Admixture Fee 1 EACH in Sodium Chloride 0.9% 50 ML IV SCH ×2 (12:39→20:02)
[2022-04-08] MEDS: Furosemide 40 MG/4 ML VIAL SLOW IVP SCH (13:21)
[2022-04-08] MEDS ORDERED: Vecuronium 10 MG VIAL ONE (13:31)
[2022-04-08] MEDS ORDERED: Vecuronium 10 MG VIAL IV SCH (14:00)
[2022-04-08] MEDS: Fentanyl CADD 100 ML IV SCH (14:26)
[2022-04-08] MEDS: Vecuronium 10 MG VIAL IVP PRN ×5 (14:53→23:27)
[2022-04-08 17:23] LABS: Potassium 3.3 mmol/L (3.5-5.1)
[2022-04-08] MEDS ORDERED: Potassium Chloride 20 MEQ TAB PER TUBE SCH (18:30)
[2022-04-08] MEDS ORDERED: Sterile Water 10 ML ONE (19:14)
[2022-04-09] MEDS: Vecuronium 10 MG VIAL IVP PRN ×6 (01:30→22:38)
[2022-04-09] MEDS: Hydrocortisone Sod Succ/PF 100 mg/2 ml Vial IVP SCH ×4 (03:19→20:20)
[2022-04-09] MEDS: Levothyroxine Sodium 100 MCG TAB PO SCH (05:07)
[2022-04-09] MEDS: Furosemide 40 MG/4 ML VIAL SLOW IVP SCH (05:07)
[2022-04-09] MEDS: Meropenem 1 GM in Sodium Chloride 0.9% 100 ML IVPB SCH (05:07)
[2022-04-09 05:09] LABS: Anion Gap 16 mmol/L (10-20); BUN (Urea Nitrogen) 18 mg/dL (8.9-20.6); Calc. Creatinine Clearance 247 mL/min (70-130); Calcium 8.2 mg/dL (7.8-10.44); Carbon Dioxide 33 mmol/L (22-29); Chloride 82 mmol/L (98-107); Estimated GFR 125; Glucose 103 mg/dL (70-105); Potassium 3.1 mmol/L (3.5-5.1); Sodium 128 mmol/L (136-145)
[2022-04-09 05:31] LABS: Hemoglobin 9.3 g/dL (14.0-18.0); Mean Corpuscular Hemoglobin 28.6 pg (27.0-31.0); Mean Corpuscular Volume 84.1 fL (78.0-98.0); Mean Platelet Volume 9.9 fL (7.4-10.4); Platelet Count 94 thou/uL (130-400); RBC Distribution Width 13.4 % (11.5-14.5); Red Blood Cell (RBC) Count 3.24 mill/uL (4.70-6.10); White Blood Cell (WBC) Count 5.1 thou/uL (4.8-10.8)
[2022-04-09 05:58] LABS: #Lymphocytes 0.4 thou/uL (1.20-3.40); #Monocytes 0.3 thou/uL (0.11-0.59); #Neutrophils 4.4 thou/uL (1.40-6.50); %Basophils 0.1 % (0.0-1.0); %Eosinophils 0.8 % (0.0-10.0); %Lymphocytes 7.2 % (21.0-51.0); %Monocytes 5.4 % (0.0-10.0); %Neutrophils 86.5 % (42.0-75.0); Large Platelets SLIGHT; MDiff Complete? YES; Platelet Morphology Comment Appears Decreased; RBC Morphology Normal
[2022-04-09] MEDS: Propofol 1,000 MG/100 ML VIAL IV PRN (06:20)
[2022-04-09] MEDS ORDERED: Potassium Chloride 20 MEQ TAB PER TUBE SCH (06:45)
[2022-04-09 08:02] LABS: Actual Bicarbonate (HCO3a) 40.2 mEq/L (22-28); CO2 Tension 47.2 mmHg (35.0-45.0); Calcium, Ionized (arterial) 1.04 mmol/L (1.12-1.30); Carboxyhemoglobin (COHb) 0.1 gm% (0.0-3.0); Potassium - ABG Lab 3.26 mmol/L (3.70-5.30)
[2022-04-09 08:03] LABS: O2 Tension (PaO2), arterial 54.6 mmHg (80.0-100.0); pH, Arterial 7.55 (7.35-7.45)
[2022-04-09 08:04] LABS: Puncture Site Arterial Line
[2022-04-09] MEDS: Mometasone 100 MCG/Formoterol 5 MCG 120 PUFF INHALER INH SCH (08:20)
[2022-04-09] MEDS: Senokot S 8.6-50 MG TAB PO SCH ×2 (08:38→20:21)
[2022-04-09] MEDS: Polyethylene Glycol 3350 17 GM Packet PER TUBE SCH (08:38)
[2022-04-09] MEDS: Potassium Bicarbonate/Cit Ac 20 MEQ TAB PER TUBE SCH ×2 (08:38→16:48)
[2022-04-09] MEDS: Heparin 5,000 UNITS/ML VIAL SC SCH ×2 (08:38→20:21)
[2022-04-09] MEDS: Pantoprazole 40 MG VIAL IVP SCH (08:40)
[2022-04-09] MEDS: Insulin Glargine 30 UNITS/0.3 ML VIAL SC SCH (09:50)
[2022-04-09] MEDS ORDERED: Potassium Chloride 40 MEQ in Premix Bag 1 BAG IVPB SCH (10:15)
[2022-04-09] MEDS: Cefepime 2 GM in Sodium Chloride 0.9% 100 ML IVPB SCH ×2 (10:52→22:37)
[2022-04-09] MEDS: Vancomycin 1.5 GRAM/300 ML BAG 1.5 GM in Premix Bag 1 BAG IVPB SCH ×2 (10:58→17:00)
[2022-04-09] MEDS ORDERED: Potassium Bicarbonate/Cit Ac 20 MEQ TAB PER TUBE SCH (12:00)
[2022-04-09] MEDS ORDERED: Fentanyl CADD 0 ML ONE (12:37)
[2022-04-09] MEDS: Fentanyl CADD 100 ML IV SCH (12:41)
[2022-04-09 15:21] LABS: Potassium 3.9 mmol/L (3.5-5.1)
[2022-04-10] MEDS: Vancomycin 1.5 GRAM/300 ML BAG 1.5 GM in Premix Bag 1 BAG IVPB SCH ×3 (01:01→16:49)
[2022-04-10] MEDS: Vecuronium 10 MG VIAL IVP PRN ×7 (01:49→23:35)
[2022-04-10] MEDS: Hydrocortisone Sod Succ/PF 100 mg/2 ml Vial IVP SCH ×4 (03:14→20:53)
[2022-04-10] MEDS: Fentanyl CADD 100 ML IV SCH ×3 (03:52→23:08)
[2022-04-10 04:24] LABS: BUN (Urea Nitrogen) 11 mg/dL (8.9-20.6); Calc. Creatinine Clearance 214 mL/min (70-130); Calcium 8.6 mg/dL (7.8-10.44); Estimated GFR 120; Glucose 119 mg/dL (70-105)
[2022-04-10 04:34] LABS: Anion Gap 17 mmol/L (10-20); Carbon Dioxide 36 mmol/L (22-29); Chloride 95 mmol/L (98-107); Potassium 3.7 mmol/L (3.5-5.1); Sodium 144 mmol/L (136-145)
[2022-04-10] MEDS: Levothyroxine Sodium 100 MCG TAB PO SCH (05:24)
[2022-04-10 05:54] LABS: #Lymphocytes 0.5 thou/uL (1.20-3.40); #Monocytes 0.5 thou/uL (0.11-0.59); #Neutrophils 5.9 thou/uL (1.40-6.50); %Basophils 0.3 % (0.0-1.0); %Eosinophils 0.2 % (0.0-10.0); %Lymphocytes 6.8 % (21.0-51.0); %Monocytes 7.1 % (0.0-10.0); %Neutrophils 85.6 % (42.0-75.0); Hemoglobin 9.5 g/dL (14.0-18.0); Mean Corpuscular HGB CONC 33.3 g/dL (32.0-36.0); Mean Corpuscular Volume 86.9 fL (78.0-98.0); Mean Platelet Volume 9.7 fL (7.4-10.4); Platelet Count 132 thou/uL (130-400); RBC Distribution Width 13.9 % (11.5-14.5); Red Blood Cell (RBC) Count 3.27 mill/uL (4.70-6.10); White Blood Cell (WBC) Count 6.9 thou/uL (4.8-10.8)
[2022-04-10] MEDS ORDERED: Furosemide 40 MG/4 ML VIAL SLOW IVP SCH (06:00)
[2022-04-10] MEDS: Mometasone 100 MCG/Formoterol 5 MCG 120 PUFF INHALER INH SCH (06:50)
[2022-04-10 07:04] LABS: Actual Bicarbonate (HCO3a) 39.7 mEq/L (22-28); Base Excess (BEa) 14.6 mEq/L (-2.0 to +3.0); CO2 Tension 51.9 mmHg (35.0-45.0); Calcium, Ionized (arterial) 1.11 mmol/L (1.12-1.30); Hemoglobin (Hb) 10.7 g/dL (14.0-18.0); O2 Tension (PaO2), arterial 200.5 mmHg (80.0-100.0); Potassium - ABG Lab 3.41 mmol/L (3.70-5.30)
[2022-04-10 07:08] LABS: ALV-art Gradient 269.375 mmHg (0-20); Puncture Site RRA
[2022-04-10 08:53] LABS: Vancomycin, Trough 17.9 ug/mL
[2022-04-10] MEDS: Heparin 5,000 UNITS/ML VIAL SC SCH ×2 (10:10→20:53)
[2022-04-10] MEDS: Polyethylene Glycol 3350 17 GM Packet PER TUBE SCH (10:11)
[2022-04-10] MEDS: Pantoprazole 40 MG VIAL IVP SCH (10:11)
[2022-04-10] MEDS: Potassium Bicarbonate/Cit Ac 20 MEQ TAB PER TUBE SCH ×2 (10:12→16:48)
[2022-04-10] MEDS: Insulin Glargine 30 UNITS/0.3 ML VIAL SC SCH (10:12)
[2022-04-10] MEDS: Senokot S 8.6-50 MG TAB PO SCH ×2 (10:13→20:53)
[2022-04-10 10:24] LABS: Magnesium 2.2 mg/dL (1.6-2.6)
[2022-04-10] MEDS: Cefepime 2 GM in Sodium Chloride 0.9% 100 ML IVPB SCH ×2 (10:29→23:05)
[2022-04-10] MEDS: Valproate Sodium 250 mg/5 ml UD Cup PER TUBE SCH ×2 (13:14→20:53)
[2022-04-10] MEDS: Ziprasidone 20 MG VIAL IM SCH (20:54)
[2022-04-11] MEDS: Propofol 1,000 MG/100 ML VIAL IV PRN ×5 (00:27→23:20)
[2022-04-11] MEDS: Vancomycin 1.5 GRAM/300 ML BAG 1.5 GM in Premix Bag 1 BAG IVPB SCH (00:51)
[2022-04-11] MEDS: Hydrocortisone Sod Succ/PF 100 mg/2 ml Vial IVP SCH ×4 (03:17→21:08)
[2022-04-11 04:14] LABS: #Eosinphils 0.1 thou/uL (0.0-0.7); #Lymphocytes 0.7 thou/uL (1.20-3.40); #Monocytes 0.5 thou/uL (0.11-0.59); #Neutrophils 3.8 thou/uL (1.40-6.50); %Basophils 0.7 % (0.0-1.0); %Eosinophils 1.8 % (0.0-10.0); %Lymphocytes 14.4 % (21.0-51.0); %Monocytes 9.4 % (0.0-10.0); %Neutrophils 73.7 % (42.0-75.0); Hemoglobin 8.8 g/dL (14.0-18.0); Mean Corpuscular HGB CONC 34.1 g/dL (32.0-36.0); Mean Corpuscular Hemoglobin 30.7 pg (27.0-31.0); Mean Corpuscular Volume 89.8 fL (78.0-98.0); Platelet Count 134 thou/uL (130-400); RBC Distribution Width 13.9 % (11.5-14.5); Red Blood Cell (RBC) Count 2.87 mill/uL (4.70-6.10); White Blood Cell (WBC) Count 5.1 thou/uL (4.8-10.8)
[2022-04-11 04:35] LABS: BUN (Urea Nitrogen) 13 mg/dL (8.9-20.6); Calc. Creatinine Clearance 204 mL/min (70-130); Calcium 8.5 mg/dL (7.8-10.44); Estimated GFR 120; Glucose 124 mg/dL (70-105)
[2022-04-11 04:45] LABS: Anion Gap 10 mmol/L (10-20); Chloride 98 mmol/L (98-107); Potassium 3.6 mmol/L (3.5-5.1); Sodium 146 mmol/L (136-145)
[2022-04-11 04:47] LABS: Carbon Dioxide 42 mmol/L (22-29)
[2022-04-11] MEDS: Levothyroxine Sodium 100 MCG TAB PO SCH (06:05)
[2022-04-11] MEDS: Mometasone 100 MCG/Formoterol 5 MCG 120 PUFF INHALER INH SCH (07:11)
[2022-04-11 07:25] LABS: Actual Bicarbonate (HCO3a) 40.1 mEq/L (22-28); Base Excess (BEa) 15.2 mEq/L (-2.0 to +3.0); CO2 Tension 51.5 mmHg (35.0-45.0); Calcium, Ionized (arterial) 1.12 mmol/L (1.12-1.30); Carboxyhemoglobin (COHb) 0.1 gm% (0.0-3.0); Hemoglobin (Hb) 9.6 g/dL (14.0-18.0); O2 Tension (PaO2), arterial 106.1 mmHg (80.0-100.0); Potassium - ABG Lab 3.74 mmol/L (3.70-5.30); pH, Arterial 7.51 (7.35-7.45)
[2022-04-11 07:54] LABS: ALV-art Gradient 221.675 mmHg (0-20); Puncture Site RRA
[2022-04-11 08:29] LABS: Vancomycin, Trough 21.9 ug/mL
[2022-04-11] MEDS ORDERED: Fentanyl CADD 100 ML ONE ×2 (08:33→18:22)
[2022-04-11] MEDS ORDERED: Sodium Chloride 0.9% 100 ML ONE (09:06)
[2022-04-11] MEDS ORDERED: Sterile Water 0 ML ONE (09:07)
[2022-04-11] MEDS ORDERED: Sterile Water 10 ML ONE (09:09)
[2022-04-11] MEDS: Ziprasidone 20 MG VIAL IM SCH ×2 (09:11→21:07)
[2022-04-11] MEDS: VANCOMYCIN 1.25 GM/250 ML BAG 1.25 GM in Premix Bag 1 BAG IVPB SCH ×2 (09:15→16:00)
[2022-04-11] MEDS: Valproate Sodium 250 mg/5 ml UD Cup PER TUBE SCH ×3 (09:15→21:06)
[2022-04-11] MEDS: Potassium Bicarbonate/Cit Ac 20 MEQ TAB PER TUBE SCH ×2 (09:16→16:01)
[2022-04-11] MEDS: Polyethylene Glycol 3350 17 GM Packet PER TUBE SCH (09:16)
[2022-04-11] MEDS: Heparin 5,000 UNITS/ML VIAL SC SCH ×2 (09:16→21:08)
[2022-04-11] MEDS: Senokot S 8.6-50 MG TAB PO SCH ×2 (09:17→21:07)
[2022-04-11] MEDS: Insulin Glargine 30 UNITS/0.3 ML VIAL SC SCH (09:17)
[2022-04-11] MEDS: Pantoprazole 40 MG VIAL IVP SCH (09:18)
[2022-04-11] MEDS: Cefepime 2 GM in Sodium Chloride 0.9% 100 ML IVPB SCH ×2 (10:57→23:20)
[2022-04-11] MEDS: Sterile Water 10 ML VIAL FS SCH (21:07)
[2022-04-11 22:04] LABS: #Eosinphils 0.1 thou/uL (0.0-0.7); #Lymphocytes 0.9 thou/uL (1.20-3.40); #Monocytes 0.5 thou/uL (0.11-0.59); #Neutrophils 3.1 thou/uL (1.40-6.50); %Basophils 0.1 % (0.0-1.0); %Eosinophils 1.3 % (0.0-10.0); %Lymphocytes 19.1 % (21.0-51.0); %Neutrophils 69.4 % (42.0-75.0); Hemoglobin 8.7 g/dL (14.0-18.0); Mean Corpuscular HGB CONC 32.7 g/dL (32.0-36.0); Mean Corpuscular Hemoglobin 28.9 pg (27.0-31.0); Mean Corpuscular Volume 88.5 fL (78.0-98.0); Mean Platelet Volume 8.3 fL (7.4-10.4); Platelet Count 153 thou/uL (130-400); RBC Distribution Width 13.9 % (11.5-14.5); Red Blood Cell (RBC) Count 3.01 mill/uL (4.70-6.10); White Blood Cell (WBC) Count 4.5 thou/uL (4.8-10.8)
[2022-04-11 22:20] LABS: Lactic Acid 0.8 mmol/L (0.5-2.2)
[2022-04-11 22:23] LABS: ALT (SGPT) 47 U/L (8-55); AST (SGOT) 58 U/L (5-34); Albumin 2.6 g/dL (3.5-5.0); Alkaline Phosphatase 177 U/L (40-110); BUN (Urea Nitrogen) 18 mg/dL (8.9-20.6); Bilirubin, Total 0.6 mg/dL (0.2-1.2); Calc. Creatinine Clearance 194 mL/min (70-130); Calcium 8.3 mg/dL (7.8-10.44); Estimated GFR 118; Globulin 1.9 g/dL (2.4-3.5); Glucose 130 mg/dL (70-105); Magnesium 2.3 mg/dL (1.6-2.6); Phosphorus 2.9 mg/dL (2.3-4.7); Protein, Total 4.5 g/dL (6.0-8.3)
[2022-04-11 22:34] LABS: Anion Gap 16 mmol/L (10-20); Carbon Dioxide 35 mmol/L (22-29); Chloride 100 mmol/L (98-107); Potassium 4.1 mmol/L (3.5-5.1); Sodium 147 mmol/L (136-145)
[2022-04-12] MEDS: VANCOMYCIN 1.25 GM/250 ML BAG 1.25 GM in Premix Bag 1 BAG IVPB SCH ×4 (02:08→21:19)
[2022-04-12] MEDS: Hydrocortisone Sod Succ/PF 100 mg/2 ml Vial IVP SCH ×4 (03:18→21:18)
[2022-04-12 04:01] LABS: #Eosinphils 0.1 thou/uL (0.0-0.7); #Monocytes 0.5 thou/uL (0.11-0.59); #Neutrophils 3.9 thou/uL (1.40-6.50); %Basophils 0.5 % (0.0-1.0); %Eosinophils 1.5 % (0.0-10.0); %Lymphocytes 18.3 % (21.0-51.0); %Monocytes 8.9 % (0.0-10.0); %Neutrophils 70.8 % (42.0-75.0); Hemoglobin 9.1 g/dL (14.0-18.0); Mean Corpuscular HGB CONC 32.8 g/dL (32.0-36.0); Mean Corpuscular Volume 88.4 fL (78.0-98.0); Mean Platelet Volume 8.3 fL (7.4-10.4); Platelet Count 155 thou/uL (130-400); RBC Distribution Width 13.8 % (11.5-14.5); Red Blood Cell (RBC) Count 3.13 mill/uL (4.70-6.10); White Blood Cell (WBC) Count 5.5 thou/uL (4.8-10.8)
[2022-04-12] MEDS ORDERED: Fentanyl CADD 100 ML ONE ×2 (04:01→13:37)
[2022-04-12] MEDS: Fentanyl CADD 100 ML IV SCH ×2 (04:03→23:36)
[2022-04-12 04:28] LABS: BUN (Urea Nitrogen) 19 mg/dL (8.9-20.6); Calc. Creatinine Clearance 188 mL/min (70-130); Calcium 9.1 mg/dL (7.8-10.44); Estimated GFR 117; Glucose 146 mg/dL (70-105)
[2022-04-12 04:38] LABS: Anion Gap 15 mmol/L (10-20); Carbon Dioxide 34 mmol/L (22-29); Chloride 101 mmol/L (98-107); Potassium 4.1 mmol/L (3.5-5.1); Sodium 146 mmol/L (136-145)
[2022-04-12] MEDS: Propofol 1,000 MG/100 ML VIAL IV PRN ×3 (04:42→19:59)
[2022-04-12] MEDS: Levothyroxine Sodium 100 MCG TAB PO SCH (05:20)
[2022-04-12 06:59] LABS: Actual Bicarbonate (HCO3a) 37.7 mEq/L (22-28); Base Excess (BEa) 13.1 mEq/L (-2.0 to +3.0); CO2 Tension 49.1 mmHg (35.0-45.0); Calcium, Ionized (arterial) 1.17 mmol/L (1.12-1.30); Carboxyhemoglobin (COHb) 0.3 gm% (0.0-3.0); Hemoglobin (Hb) 9.4 g/dL (14.0-18.0); O2 Tension (PaO2), arterial 107.6 mmHg (80.0-100.0)
[2022-04-12 07:07] LABS: Puncture Site RRA
[2022-04-12 07:08] LABS: ALV-art Gradient 187.525 mmHg (0-20)
[2022-04-12] MEDS: Mometasone 100 MCG/Formoterol 5 MCG 120 PUFF INHALER INH SCH (07:10)
[2022-04-12 08:41] LABS: Vancomycin, Trough 23.2 ug/mL
[2022-04-12] MEDS: Insulin Glargine 30 UNITS/0.3 ML VIAL SC SCH (09:24)
[2022-04-12] MEDS: Valproate Sodium 250 mg/5 ml UD Cup PER TUBE SCH ×3 (09:26→21:19)
[2022-04-12] MEDS: Polyethylene Glycol 3350 17 GM Packet PER TUBE SCH (09:26)
[2022-04-12] MEDS: Senokot S 8.6-50 MG TAB PO SCH ×2 (09:26→21:24)
[2022-04-12] MEDS: Heparin 5,000 UNITS/ML VIAL SC SCH ×2 (09:27→21:19)
[2022-04-12] MEDS: Pantoprazole 40 MG VIAL IVP SCH (09:28)
[2022-04-12] MEDS: Potassium Bicarbonate/Cit Ac 20 MEQ TAB PER TUBE SCH ×2 (09:28→16:01)
[2022-04-12] MEDS: Ziprasidone 20 MG VIAL IM SCH ×2 (09:29→21:19)
[2022-04-12] MEDS: Sterile Water 10 ML VIAL FS SCH ×2 (09:29→21:19)
[2022-04-12] MEDS: Cefepime 2 GM in Sodium Chloride 0.9% 100 ML IVPB SCH ×2 (11:32→23:45)
[2022-04-12] MEDS: Insulin Regular 300 UNITS/3 ML VIAL SC PRN (22:32)
[2022-04-13] MEDS: Propofol 1,000 MG/100 ML VIAL IV PRN ×4 (02:09→23:29)
[2022-04-13] MEDS: Hydrocortisone Sod Succ/PF 100 mg/2 ml Vial IVP SCH ×4 (03:08→20:52)
[2022-04-13 04:58] LABS: #Lymphocytes 0.9 thou/uL (1.20-3.40); #Monocytes 0.7 thou/uL (0.11-0.59); %Basophils 0.1 % (0.0-1.0); %Eosinophils 0.3 % (0.0-10.0); %Lymphocytes 11.5 % (21.0-51.0); %Monocytes 9.5 % (0.0-10.0); %Neutrophils 78.5 % (42.0-75.0); Mean Corpuscular HGB CONC 33.8 g/dL (32.0-36.0); Mean Corpuscular Hemoglobin 29.5 pg (27.0-31.0); Mean Corpuscular Volume 87.5 fL (78.0-98.0); Mean Platelet Volume 8.4 fL (7.4-10.4); Platelet Count 170 thou/uL (130-400); RBC Distribution Width 13.8 % (11.5-14.5); Red Blood Cell (RBC) Count 3.04 mill/uL (4.70-6.10); White Blood Cell (WBC) Count 7.6 thou/uL (4.8-10.8)
[2022-04-13 05:04] LABS: Anion Gap 12 mmol/L (10-20); BUN (Urea Nitrogen) 20 mg/dL (8.9-20.6); Calc. Creatinine Clearance 196 mL/min (70-130); Calcium 8.8 mg/dL (7.8-10.44); Carbon Dioxide 33 mmol/L (22-29); Chloride 104 mmol/L (98-107); Estimated GFR 117; Glucose 136 mg/dL (70-105); Potassium 3.7 mmol/L (3.5-5.1); Sodium 145 mmol/L (136-145)
[2022-04-13] MEDS ORDERED: Metoprolol Tartrate 5 MG/5 ML VIAL IVP SCH (06:15)
[2022-04-13] MEDS ORDERED: Sterile Water 10 ML ONE (06:29)
[2022-04-13] MEDS ORDERED: Enoxaparin Sodium 100 MG/ML SYRINGE SC SCH (06:30)
[2022-04-13] MEDS: Vecuronium 10 MG VIAL IVP PRN (06:30)
[2022-04-13] MEDS: Levothyroxine Sodium 100 MCG TAB PO SCH (06:37)
[2022-04-13] MEDS: Mometasone 100 MCG/Formoterol 5 MCG 120 PUFF INHALER INH SCH (06:55)
[2022-04-13 07:06] LABS: Actual Bicarbonate (HCO3a) 32.4 mEq/L (22-28); Base Excess (BEa) 5.9 mEq/L (-2.0 to +3.0); CO2 Tension 56.2 mmHg (35.0-45.0); Hemoglobin (Hb) 11.4 g/dL (14.0-18.0); Potassium - ABG Lab 3.38 mmol/L (3.70-5.30); pH, Arterial 7.38 (7.35-7.45)
[2022-04-13 07:08] LABS: Puncture Site RRA
[2022-04-13] MEDS ORDERED: Fentanyl CADD 100 ML ONE ×2 (08:46→18:30)
[2022-04-13] MEDS: Polyethylene Glycol 3350 17 GM Packet PER TUBE SCH (10:00)
[2022-04-13] MEDS: Ziprasidone 20 MG VIAL IM SCH ×2 (10:01→20:53)
[2022-04-13] MEDS: Pantoprazole 40 MG VIAL IVP SCH (10:01)
[2022-04-13] MEDS: Potassium Bicarbonate/Cit Ac 20 MEQ TAB PER TUBE SCH ×2 (10:01→15:40)
[2022-04-13] MEDS: Insulin Glargine 30 UNITS/0.3 ML VIAL SC SCH (10:02)
[2022-04-13] MEDS: Sterile Water 10 ML VIAL FS SCH ×2 (10:02→20:53)
[2022-04-13] MEDS: Valproate Sodium 250 mg/5 ml UD Cup PER TUBE SCH ×3 (10:02→20:52)
[2022-04-13] MEDS: Metoprolol Tartrate 25 MG TAB PO SCH ×2 (10:03→22:29)
[2022-04-13] MEDS: Senokot S 8.6-50 MG TAB PO SCH ×2 (10:03→20:53)
[2022-04-13] MEDS: VANCOMYCIN 1.25 GM/250 ML BAG 1.25 GM in Premix Bag 1 BAG IVPB SCH (10:35)
[2022-04-13] MEDS: Cefepime 2 GM in Sodium Chloride 0.9% 100 ML IVPB SCH ×2 (11:14→22:39)
[2022-04-13] MEDS: Fentanyl CADD 100 ML IV SCH (18:55)
[2022-04-13 20:33] LABS: Vancomycin, Trough 11.4 ug/mL
[2022-04-13] MEDS: Vancomycin 1.5 GRAM/300 ML BAG 1.5 GM in Premix Bag 1 BAG IVPB SCH (20:52)
[2022-04-13] MEDS: Enoxaparin Sodium 100 MG/ML SYRINGE SC SCH (20:53)
[2022-04-14] MEDS: Fentanyl CADD 100 ML IV SCH ×3 (04:00→19:36)
[2022-04-14] MEDS: Morphine 2 MG/ML VIAL SLOW IVP PRN ×2 (04:05→05:12)
[2022-04-14] MEDS: Hydrocortisone Sod Succ/PF 100 mg/2 ml Vial IVP SCH ×4 (04:08→20:42)
[2022-04-14] MEDS: Vecuronium 10 MG VIAL IVP PRN ×4 (04:32→20:28)
[2022-04-14 05:15] LABS: #Eosinphils 0.1 thou/uL (0.0-0.7); #Lymphocytes 1.5 thou/uL (1.20-3.40); #Monocytes 0.7 thou/uL (0.11-0.59); #Neutrophils 9.8 thou/uL (1.40-6.50); %Basophils 0.1 % (0.0-1.0); %Eosinophils 0.9 % (0.0-10.0); %Lymphocytes 12.5 % (21.0-51.0); %Neutrophils 80.5 % (42.0-75.0); Hemoglobin 10.6 g/dL (14.0-18.0); Mean Corpuscular HGB CONC 32.1 g/dL (32.0-36.0); Mean Corpuscular Hemoglobin 28.1 pg (27.0-31.0); Mean Corpuscular Volume 87.7 fL (78.0-98.0); Mean Platelet Volume 8.3 fL (7.4-10.4); Platelet Count 185 thou/uL (130-400); RBC Distribution Width 13.9 % (11.5-14.5); Red Blood Cell (RBC) Count 3.76 mill/uL (4.70-6.10); White Blood Cell (WBC) Count 12.1 thou/uL (4.8-10.8)
[2022-04-14] MEDS: hydrALAZINE 20 MG/ML VIAL SLOW IVP PRN (05:23)
[2022-04-14 05:32] LABS: Anion Gap 15 mmol/L (10-20); BUN (Urea Nitrogen) 21 mg/dL (8.9-20.6); Calc. Creatinine Clearance 224 mL/min (70-130); Calcium 9.1 mg/dL (7.8-10.44); Carbon Dioxide 32 mmol/L (22-29); Chloride 102 mmol/L (98-107); Estimated GFR 122; Glucose 120 mg/dL (70-105); Potassium 3.7 mmol/L (3.5-5.1); Sodium 145 mmol/L (136-145)
[2022-04-14] MEDS: Propofol 1,000 MG/100 ML VIAL IV PRN ×6 (05:54→23:00)
[2022-04-14] MEDS: Levothyroxine Sodium 100 MCG TAB PO SCH (05:54)
[2022-04-14] MEDS: Mometasone 100 MCG/Formoterol 5 MCG 120 PUFF INHALER INH SCH (06:45)
[2022-04-14] MEDS: Valproate Sodium 250 mg/5 ml UD Cup PER TUBE SCH ×3 (07:48→20:41)
[2022-04-14] MEDS: Potassium Bicarbonate/Cit Ac 20 MEQ TAB PER TUBE SCH ×2 (07:49→15:52)
[2022-04-14] MEDS: Insulin Glargine 30 UNITS/0.3 ML VIAL SC SCH (07:49)
[2022-04-14] MEDS: Polyethylene Glycol 3350 17 GM Packet PER TUBE SCH (07:49)
[2022-04-14] MEDS: Senokot S 8.6-50 MG TAB PO SCH ×2 (07:49→20:41)
[2022-04-14] MEDS: Metoprolol Tartrate 25 MG TAB PO SCH ×2 (07:49→20:42)
[2022-04-14] MEDS: Enoxaparin Sodium 100 MG/ML SYRINGE SC SCH ×2 (07:49→20:41)
[2022-04-14] MEDS: Ziprasidone 20 MG VIAL IM SCH ×2 (07:49→20:28)
[2022-04-14] MEDS: Pantoprazole 40 MG VIAL IVP SCH (07:50)
[2022-04-14] MEDS: Sterile Water 10 ML VIAL FS SCH ×2 (07:51→20:28)
[2022-04-14] MEDS: Vancomycin 1.5 GRAM/300 ML BAG 1.5 GM in Premix Bag 1 BAG IVPB SCH (09:38)
[2022-04-14] MEDS: Cefepime 2 GM in Sodium Chloride 0.9% 100 ML IVPB SCH ×2 (11:16→22:59)
[2022-04-14] MEDS ORDERED: Fentanyl CADD 100 ML ONE (11:20)
[2022-04-14] MEDS: Enalaprilat Dihydrate 1.25 MG/ML VIAL SLOW IVP SCH ×2 (12:34→17:26)
[2022-04-15] MEDS: Enalaprilat Dihydrate 1.25 MG/ML VIAL SLOW IVP SCH ×5 (00:18→23:26)
[2022-04-15] MEDS: Hydrocortisone Sod Succ/PF 100 mg/2 ml Vial IVP SCH ×2 (04:06→08:17)
[2022-04-15 04:22] LABS: #Eosinphils 0.1 thou/uL (0.0-0.7); #Lymphocytes 1.1 thou/uL (1.20-3.40); #Monocytes 0.5 thou/uL (0.11-0.59); %Eosinophils 0.9 % (0.0-10.0); %Lymphocytes 9.6 % (21.0-51.0); %Neutrophils 85.5 % (42.0-75.0); Mean Corpuscular HGB CONC 32.4 g/dL (32.0-36.0); Mean Corpuscular Hemoglobin 28.5 pg (27.0-31.0); Mean Corpuscular Volume 87.9 fL (78.0-98.0); Mean Platelet Volume 8.1 fL (7.4-10.4); Platelet Count 165 thou/uL (130-400); RBC Distribution Width 14.2 % (11.5-14.5); Red Blood Cell (RBC) Count 3.14 mill/uL (4.70-6.10); White Blood Cell (WBC) Count 11.7 thou/uL (4.8-10.8)
[2022-04-15 04:42] LABS: Anion Gap 14 mmol/L (10-20); BUN (Urea Nitrogen) 23 mg/dL (8.9-20.6); Calc. Creatinine Clearance 236 mL/min (70-130); Calcium 9.1 mg/dL (7.8-10.44); Carbon Dioxide 32 mmol/L (22-29); Chloride 104 mmol/L (98-107); Estimated GFR 124; Glucose 107 mg/dL (70-105); Sodium 146 mmol/L (136-145)
[2022-04-15] MEDS: Fentanyl CADD 100 ML IV SCH ×3 (04:49→19:28)
[2022-04-15] MEDS: Vecuronium 10 MG VIAL IVP PRN ×5 (04:52→19:28)
[2022-04-15] MEDS: Morphine 2 MG/ML VIAL SLOW IVP PRN ×3 (04:52→14:30)
[2022-04-15] MEDS: hydrALAZINE 20 MG/ML VIAL SLOW IVP PRN (05:10)
[2022-04-15] MEDS: Levothyroxine Sodium 100 MCG TAB PO SCH (06:04)
[2022-04-15] MEDS: Mometasone 100 MCG/Formoterol 5 MCG 120 PUFF INHALER INH SCH (07:29)
[2022-04-15 07:44] LABS: Actual Bicarbonate (HCO3a) 33.8 mEq/L (22-28); Base Excess (BEa) 5.7 mEq/L (-2.0 to +3.0); Calcium, Ionized (arterial) 1.21 mmol/L (1.12-1.30); Carboxyhemoglobin (COHb) 0.3 gm% (0.0-3.0); Hemoglobin (Hb) 13.6 g/dL (14.0-18.0); Potassium - ABG Lab 3.77 mmol/L (3.70-5.30); pH, Arterial 7.33 (7.35-7.45)
[2022-04-15] MEDS ORDERED: niCARdipine 25 MG in Sodium Chloride 0.9% 250 ML 250 ML IVPB SCH (07:45)
[2022-04-15 07:50] LABS: CO2 Tension 65.8 mmHg (35.0-45.0); Puncture Site RRA
[2022-04-15] MEDS: Potassium Bicarbonate/Cit Ac 20 MEQ TAB PER TUBE SCH ×2 (08:05→16:28)
[2022-04-15] MEDS: Insulin Glargine 30 UNITS/0.3 ML VIAL SC SCH (08:06)
[2022-04-15] MEDS: Enoxaparin Sodium 100 MG/ML SYRINGE SC SCH ×2 (08:06→20:10)
[2022-04-15] MEDS: Valproate Sodium 250 mg/5 ml UD Cup PER TUBE SCH ×3 (08:07→20:11)
[2022-04-15] MEDS: Metoprolol Tartrate 25 MG TAB PO SCH ×2 (08:07→20:11)
[2022-04-15] MEDS: Sterile Water 10 ML VIAL FS SCH ×2 (08:07→20:13)
[2022-04-15] MEDS: Polyethylene Glycol 3350 17 GM Packet PER TUBE SCH (08:07)
[2022-04-15] MEDS: Senokot S 8.6-50 MG TAB PO SCH ×2 (08:07→20:10)
[2022-04-15] MEDS: Pantoprazole 40 MG VIAL IVP SCH (08:07)
[2022-04-15] MEDS: Ziprasidone 20 MG VIAL IM SCH ×2 (08:08→20:12)
[2022-04-15] MEDS: Propofol 1,000 MG/100 ML VIAL IV PRN ×6 (08:17→23:26)
[2022-04-15] MEDS: Cefepime 2 GM in Sodium Chloride 0.9% 100 ML IVPB SCH ×2 (12:04→23:26)
[2022-04-15] MEDS: methylPREDNISolone Sod Succ 1 GM in Sodium Chloride 0.9% 250 ML 250 ML IVPB SCH (15:23)
[2022-04-15 16:24] LABS: BF Color Colorless; Body Fluid Source Bronchial Washings; Clarity Hazy (Clear); Tube # EDTA
[2022-04-15] MEDS ORDERED: Furosemide 40 MG/4 ML VIAL SLOW IVP SCH (17:00)
[2022-04-15 18:05] LABS: BF RBC Count - Manual 672 /cu.mm; BF WBC/Nonhematics Ct.-Manual 226 /cu.mm
[2022-04-15 18:07] LABS: BF Segmented Neutrophils 88 %; Cell Count Non Hematic 12 %
[2022-04-15] MEDS: Insulin Regular 300 UNITS/3 ML VIAL SC PRN (22:00)
[2022-04-16] MEDS: Fentanyl CADD 100 ML IV SCH ×2 (04:12→14:03)
[2022-04-16] MEDS: Enalaprilat Dihydrate 1.25 MG/ML VIAL SLOW IVP SCH ×2 (05:09→12:24)
[2022-04-16] MEDS: Levothyroxine Sodium 100 MCG TAB PO SCH (05:09)
[2022-04-16 05:14] LABS: #Lymphocytes 0.4 thou/uL (1.20-3.40); #Monocytes 0.2 thou/uL (0.11-0.59); #Neutrophils 11.9 thou/uL (1.40-6.50); %Basophils 0.1 % (0.0-1.0); %Eosinophils 0.1 % (0.0-10.0); %Lymphocytes 3.5 % (21.0-51.0); %Monocytes 1.6 % (0.0-10.0); %Neutrophils 94.7 % (42.0-75.0); Mean Corpuscular HGB CONC 32.1 g/dL (32.0-36.0); Mean Corpuscular Hemoglobin 28.4 pg (27.0-31.0); Mean Corpuscular Volume 88.5 fL (78.0-98.0); Mean Platelet Volume 8.1 fL (7.4-10.4); Platelet Count 207 thou/uL (130-400); Red Blood Cell (RBC) Count 3.15 mill/uL (4.70-6.10); White Blood Cell (WBC) Count 12.5 thou/uL (4.8-10.8)
[2022-04-16 05:36] LABS: Anion Gap 14 mmol/L (10-20); BUN (Urea Nitrogen) 24 mg/dL (8.9-20.6); CK (CPK) 16 U/L (30-200); Calc. Creatinine Clearance 212 mL/min (70-130); Calcium 8.9 mg/dL (7.8-10.44); Carbon Dioxide 36 mmol/L (22-29); Chloride 99 mmol/L (98-107); Estimated GFR 120; Glucose 162 mg/dL (70-105); Potassium 4.4 mmol/L (3.5-5.1); Sodium 145 mmol/L (136-145)
[2022-04-16] MEDS: Mometasone 100 MCG/Formoterol 5 MCG 120 PUFF INHALER INH SCH (06:48)
[2022-04-16 06:57] LABS: Actual Bicarbonate (HCO3a) 36.8 mEq/L (22-28); Base Excess (BEa) 11.3 mEq/L (-2.0 to +3.0); CO2 Tension 54.1 mmHg (35.0-45.0); Calcium, Ionized (arterial) 1.15 mmol/L (1.12-1.30); Carboxyhemoglobin (COHb) 0.3 gm% (0.0-3.0); Hemoglobin (Hb) 9.6 g/dL (14.0-18.0); O2 Tension (PaO2), arterial 88.2 mmHg (80.0-100.0); pH, Arterial 7.45 (7.35-7.45)
[2022-04-16 06:58] LABS: ALV-art Gradient 271.975 mmHg (0-20); Puncture Site LRA
[2022-04-16] MEDS: Potassium Bicarbonate/Cit Ac 20 MEQ TAB PER TUBE SCH ×2 (07:51→16:08)
[2022-04-16] MEDS: Sterile Water 10 ML VIAL FS SCH ×2 (07:59→20:18)
[2022-04-16] MEDS: Pantoprazole 40 MG VIAL IVP SCH (08:00)
[2022-04-16] MEDS: Polyethylene Glycol 3350 17 GM Packet PER TUBE SCH (08:00)
[2022-04-16] MEDS: Valproate Sodium 250 mg/5 ml UD Cup PER TUBE SCH (08:00)
[2022-04-16] MEDS: Enoxaparin Sodium 100 MG/ML SYRINGE SC SCH ×2 (08:00→20:15)
[2022-04-16] MEDS: Insulin Glargine 30 UNITS/0.3 ML VIAL SC SCH (08:01)
[2022-04-16] MEDS: Senokot S 8.6-50 MG TAB PO SCH ×2 (08:01→20:15)
[2022-04-16] MEDS: Metoprolol Tartrate 25 MG TAB PO SCH (08:01)
[2022-04-16] MEDS: Ziprasidone 20 MG VIAL IM SCH (08:02)
[2022-04-16] MEDS: Propofol 1,000 MG/100 ML VIAL IV PRN ×3 (08:04→20:14)
[2022-04-16] MEDS: Vecuronium 10 MG VIAL IVP PRN ×4 (09:00→22:45)
[2022-04-16] MEDS ORDERED: VANC IVPB PRN (09:10)
[2022-04-16] MEDS ORDERED: Meropenem 1 GM in Sodium Chloride 0.9% 100 ML IVPB SCH ×2 (09:15→14:00)
[2022-04-16] MEDS: acetaZOLAMIDE Sodium 500 mg Vial IVP SCH ×2 (09:55→20:20)
[2022-04-16] MEDS ORDERED: Vancomycin 1.5 GRAM/300 ML BAG 1.5 GM in Premix Bag 1 BAG IVPB SCH (10:00)
[2022-04-16] MEDS: methylPREDNISolone Sod Succ 1 GM in Sodium Chloride 0.9% 250 ML 250 ML IVPB SCH (12:15)
[2022-04-16] MEDS ORDERED: Fentanyl CADD 100 ML ONE (13:58)
[2022-04-16 14:04] LABS: Actual Bicarbonate (HCO3a) 35.6 mEq/L (22-28); Base Excess (BEa) 10.2 mEq/L (-2.0 to +3.0); CO2 Tension 52.7 mmHg (35.0-45.0); Calcium, Ionized (arterial) 1.13 mmol/L (1.12-1.30); Carboxyhemoglobin (COHb) 0.1 gm% (0.0-3.0); Hemoglobin (Hb) 9.3 g/dL (14.0-18.0); O2 Tension (PaO2), arterial 66.8 mmHg (80.0-100.0); Potassium - ABG Lab 3.63 mmol/L (3.70-5.30); pH, Arterial 7.45 (7.35-7.45)
[2022-04-16 14:07] LABS: ALV-art Gradient 152.525 mmHg (0-20); Puncture Site Arterial Line
[2022-04-16] MEDS ORDERED: Atropine Sulfate 1 mg/10 ml Syringe IVP PRN (14:22)
[2022-04-16] MEDS ORDERED: Potassium Chloride 20 MEQ TAB PO SCH (14:30)
[2022-04-16] MEDS ORDERED: Potassium Bicarbonate/Cit Ac 20 MEQ TAB PO SCH (15:00)
[2022-04-16] MEDS: Meropenem 1 GM in Sodium Chloride 0.9% 100 ML IVPB SCH (16:08)
[2022-04-17] MEDS: Meropenem 1 GM in Sodium Chloride 0.9% 100 ML IVPB SCH ×3 (00:17→16:47)
[2022-04-17] MEDS: Vecuronium 10 MG VIAL IVP PRN ×4 (00:20→09:35)
[2022-04-17] MEDS: Fentanyl CADD 100 ML IV SCH ×3 (01:29→21:26)
[2022-04-17] MEDS: Propofol 1,000 MG/100 ML VIAL IV PRN ×5 (02:36→20:52)
[2022-04-17 04:29] LABS: #Lymphocytes 0.5 thou/uL (1.20-3.40); #Monocytes 0.5 thou/uL (0.11-0.59); #Neutrophils 7.3 thou/uL (1.40-6.50); %Eosinophils 0.2 % (0.0-10.0); %Lymphocytes 5.8 % (21.0-51.0); %Monocytes 5.5 % (0.0-10.0); %Neutrophils 88.5 % (42.0-75.0); Hemoglobin 8.4 g/dL (14.0-18.0); Mean Corpuscular HGB CONC 33.1 g/dL (32.0-36.0); Mean Corpuscular Hemoglobin 28.9 pg (27.0-31.0); Mean Corpuscular Volume 87.3 fL (78.0-98.0); Mean Platelet Volume 8.3 fL (7.4-10.4); Platelet Count 262 thou/uL (130-400); RBC Distribution Width 13.9 % (11.5-14.5); White Blood Cell (WBC) Count 8.2 thou/uL (4.8-10.8)
[2022-04-17 04:51] LABS: Anion Gap 12 mmol/L (10-20); BUN (Urea Nitrogen) 27 mg/dL (8.9-20.6); Calc. Creatinine Clearance 219 mL/min (70-130); Calcium 8.7 mg/dL (7.8-10.44); Carbon Dioxide 30 mmol/L (22-29); Chloride 103 mmol/L (98-107); Estimated GFR 121; Glucose 151 mg/dL (70-105); Potassium 3.4 mmol/L (3.5-5.1); Sodium 142 mmol/L (136-145)
[2022-04-17] MEDS: Levothyroxine Sodium 100 MCG TAB PO SCH (05:15)
[2022-04-17] MEDS: Mometasone 100 MCG/Formoterol 5 MCG 120 PUFF INHALER INH SCH (07:05)
[2022-04-17 07:26] LABS: Actual Bicarbonate (HCO3a) 27.8 mEq/L (22-28); CO2 Tension 43.3 mmHg (35.0-45.0); Calcium, Ionized (arterial) 1.19 mmol/L (1.12-1.30); Carboxyhemoglobin (COHb) 0.2 gm% (0.0-3.0); Hemoglobin (Hb) 9.4 g/dL (14.0-18.0); O2 Tension (PaO2), arterial 109.7 mmHg (80.0-100.0); Potassium - ABG Lab 3.53 mmol/L (3.70-5.30); pH, Arterial 7.43 (7.35-7.45)
[2022-04-17 07:28] LABS: Puncture Site Arterial Line
[2022-04-17 07:29] LABS: ALV-art Gradient 192.675 mmHg (0-20)
[2022-04-17] MEDS: Potassium Chloride 20 MEQ in Premix Bag 1 BAG IVPB SCH ×2 (07:58→08:59)
[2022-04-17] MEDS: Potassium Bicarbonate/Cit Ac 20 MEQ TAB PER TUBE SCH ×2 (07:58→16:47)
[2022-04-17] MEDS: Enoxaparin Sodium 100 MG/ML SYRINGE SC SCH ×2 (08:01→20:52)
[2022-04-17] MEDS: Polyethylene Glycol 3350 17 GM Packet PER TUBE SCH (08:02)
[2022-04-17] MEDS: Insulin Glargine 30 UNITS/0.3 ML VIAL SC SCH (08:02)
[2022-04-17] MEDS: Senokot S 8.6-50 MG TAB PO SCH ×2 (08:02→20:52)
[2022-04-17] MEDS: Pantoprazole 40 MG VIAL IVP SCH (08:03)
[2022-04-17] MEDS: Sterile Water 10 ML VIAL FS SCH ×2 (08:04→20:53)
[2022-04-17] MEDS ORDERED: Fentanyl CADD 100 ML ONE ×2 (10:21→21:07)
[2022-04-17] MEDS ORDERED: Sterile Water 10 ML ONE (10:21)
[2022-04-17] MEDS ORDERED: KETAMINE 100 MG/ML (5ML VIAL) SLOW IVP PRN (10:21)
[2022-04-17] MEDS: acetaZOLAMIDE Sodium 500 mg Vial IVP SCH ×2 (10:25→20:52)
[2022-04-17] MEDS: methylPREDNISolone Sod Succ 1 GM in Sodium Chloride 0.9% 250 ML 250 ML IVPB SCH (14:18)
[2022-04-17] MEDS: Ketamine 500 MG in Sodium Chloride 0.9% 490 ML IVPB PRN ×2 (14:27→20:02)
[2022-04-18] MEDS: Ketamine 500 MG in Sodium Chloride 0.9% 490 ML IVPB PRN ×5 (00:23→17:56)
[2022-04-18] MEDS: Meropenem 1 GM in Sodium Chloride 0.9% 100 ML IVPB SCH ×3 (01:14→16:01)
[2022-04-18] MEDS: Propofol 1,000 MG/100 ML VIAL IV PRN ×4 (03:13→22:08)
[2022-04-18 04:24] LABS: #Lymphocytes 0.7 thou/uL (1.20-3.40); #Monocytes 0.6 thou/uL (0.11-0.59); #Neutrophils 10.7 thou/uL (1.40-6.50); %Basophils 0.2 % (0.0-1.0); %Eosinophils 0.2 % (0.0-10.0); %Lymphocytes 5.6 % (21.0-51.0); %Monocytes 4.6 % (0.0-10.0); %Neutrophils 89.3 % (42.0-75.0); Hemoglobin 9.5 g/dL (14.0-18.0); Mean Corpuscular HGB CONC 33.9 g/dL (32.0-36.0); Mean Corpuscular Hemoglobin 29.2 pg (27.0-31.0); Mean Corpuscular Volume 86.2 fL (78.0-98.0); Mean Platelet Volume 7.5 fL (7.4-10.4); Platelet Count 371 thou/uL (130-400); RBC Distribution Width 13.7 % (11.5-14.5); Red Blood Cell (RBC) Count 3.24 mill/uL (4.70-6.10); White Blood Cell (WBC) Count 11.9 thou/uL (4.8-10.8)
[2022-04-18 05:02] LABS: Anion Gap 13 mmol/L (10-20); BUN (Urea Nitrogen) 30 mg/dL (8.9-20.6); Calc. Creatinine Clearance 194 mL/min (70-130); Calcium 8.6 mg/dL (7.8-10.44); Carbon Dioxide 25 mmol/L (22-29); Chloride 106 mmol/L (98-107); Estimated GFR 117; Glucose 130 mg/dL (70-105); Potassium 3.7 mmol/L (3.5-5.1); Sodium 140 mmol/L (136-145)
[2022-04-18] MEDS: Levothyroxine Sodium 100 MCG TAB PO SCH (05:49)
[2022-04-18 07:03] LABS: Actual Bicarbonate (HCO3a) 23.9 mEq/L (22-28); Base Excess (BEa) 0.7 mEq/L (-2.0 to +3.0); CO2 Tension 33.2 mmHg (35.0-45.0); Calcium, Ionized (arterial) 1.18 mmol/L (1.12-1.30); Carboxyhemoglobin (COHb) 0.1 gm% (0.0-3.0); Hemoglobin (Hb) 10.1 g/dL (14.0-18.0); O2 Tension (PaO2), arterial 76.3 mmHg (80.0-100.0); Potassium - ABG Lab 3.63 mmol/L (3.70-5.30); pH, Arterial 7.48 (7.35-7.45)
[2022-04-18 07:06] LABS: Puncture Site Arterial Line
[2022-04-18] MEDS: Vecuronium 10 MG VIAL IVP PRN ×2 (08:12→14:54)
[2022-04-18] MEDS: Enoxaparin Sodium 100 MG/ML SYRINGE SC SCH ×2 (08:47→21:09)
[2022-04-18] MEDS: Senokot S 8.6-50 MG TAB PO SCH ×2 (08:47→21:09)
[2022-04-18] MEDS: Polyethylene Glycol 3350 17 GM Packet PER TUBE SCH (08:47)
[2022-04-18] MEDS: Insulin Glargine 30 UNITS/0.3 ML VIAL SC SCH (08:47)
[2022-04-18] MEDS: Pantoprazole 40 MG VIAL IVP SCH (08:47)
[2022-04-18] MEDS: Potassium Bicarbonate/Cit Ac 20 MEQ TAB PER TUBE SCH ×2 (08:47→16:01)
[2022-04-18] MEDS: Acetaminophen 325 MG/10.15 ML UDCUP PO PRN (09:02)
[2022-04-18] MEDS: Mometasone 100 MCG/Formoterol 5 MCG 120 PUFF INHALER INH SCH (09:44)
[2022-04-18] MEDS: Sterile Water 10 ML VIAL FS SCH ×2 (10:09→21:10)
[2022-04-18] MEDS: methylPREDNISolone Sod Succ 40 MG VIAL IVP SCH ×2 (10:11→21:09)
[2022-04-18] MEDS ORDERED: Fentanyl CADD 100 ML ONE ×2 (10:25→23:20)
[2022-04-18] MEDS: Fentanyl CADD 100 ML IV SCH ×2 (10:28→23:48)
[2022-04-18] MEDS: Valproate Sodium 250 mg/5 ml UD Cup PER TUBE SCH (21:09)
[2022-04-18] MEDS: niCARdipine 50 MG in Sodium Chloride 0.9% 250 ML 230 ML IVPB SCH (23:37)
[2022-04-19] MEDS: Ketamine 500 MG in Sodium Chloride 0.9% 490 ML IVPB PRN ×2 (01:08→06:06)
[2022-04-19] MEDS: Propofol 1,000 MG/100 ML VIAL IV PRN ×6 (01:09→21:18)
[2022-04-19] MEDS: Meropenem 1 GM in Sodium Chloride 0.9% 100 ML IVPB SCH ×3 (01:09→18:05)
[2022-04-19 03:32] LABS: #Lymphocytes 1.1 thou/uL (1.20-3.40); #Monocytes 0.8 thou/uL (0.11-0.59); #Neutrophils 10.7 thou/uL (1.40-6.50); %Basophils 0.1 % (0.0-1.0); %Eosinophils 0.3 % (0.0-10.0); %Lymphocytes 8.4 % (21.0-51.0); %Monocytes 6.2 % (0.0-10.0); %Neutrophils 85.1 % (42.0-75.0); Hemoglobin 10.2 g/dL (14.0-18.0); Mean Corpuscular HGB CONC 33.2 g/dL (32.0-36.0); Mean Corpuscular Hemoglobin 28.4 pg (27.0-31.0); Mean Corpuscular Volume 85.4 fL (78.0-98.0); Mean Platelet Volume 7.1 fL (7.4-10.4); Platelet Count 436 thou/uL (130-400); RBC Distribution Width 13.9 % (11.5-14.5); Red Blood Cell (RBC) Count 3.59 mill/uL (4.70-6.10); White Blood Cell (WBC) Count 12.6 thou/uL (4.8-10.8)
[2022-04-19 03:48] LABS: Anion Gap 17 mmol/L (10-20); BUN (Urea Nitrogen) 24 mg/dL (8.9-20.6); Calc. Creatinine Clearance 200 mL/min (70-130); Calcium 8.7 mg/dL (7.8-10.44); Carbon Dioxide 25 mmol/L (22-29); Chloride 107 mmol/L (98-107); Estimated GFR 119; Glucose 122 mg/dL (70-105); Potassium 3.5 mmol/L (3.5-5.1); Sodium 145 mmol/L (136-145)
[2022-04-19] MEDS: Levothyroxine Sodium 100 MCG TAB PO SCH (05:36)
[2022-04-19] MEDS: Mometasone 100 MCG/Formoterol 5 MCG 120 PUFF INHALER INH SCH (07:21)
[2022-04-19] MEDS: Rocuronium Bromide 10 MG/ML (10ML VIAL) IVP PRN ×2 (07:39→23:29)
[2022-04-19 07:48] LABS: Actual Bicarbonate (HCO3a) 27.5 mEq/L (22-28); Base Excess (BEa) 4.4 mEq/L (-2.0 to +3.0); CO2 Tension 35.6 mmHg (35.0-45.0); Calcium, Ionized (arterial) 1.15 mmol/L (1.12-1.30); Carboxyhemoglobin (COHb) 0.3 gm% (0.0-3.0); Hemoglobin (Hb) 10.5 g/dL (14.0-18.0); O2 Tension (PaO2), arterial 67.4 mmHg (80.0-100.0); Potassium - ABG Lab 3.36 mmol/L (3.70-5.30); Puncture Site RRA; pH, Arterial 7.51 (7.35-7.45)
[2022-04-19] MEDS: methylPREDNISolone Sod Succ 40 MG VIAL IVP SCH ×2 (08:23→20:18)
[2022-04-19] MEDS: Enoxaparin Sodium 100 MG/ML SYRINGE SC SCH ×2 (08:23→20:18)
[2022-04-19] MEDS: Insulin Glargine 30 UNITS/0.3 ML VIAL SC SCH (08:23)
[2022-04-19] MEDS: Potassium Bicarbonate/Cit Ac 20 MEQ TAB PER TUBE SCH ×2 (08:24→17:21)
[2022-04-19] MEDS: Pantoprazole 40 MG VIAL IVP SCH (08:24)
[2022-04-19] MEDS: Valproate Sodium 250 mg/5 ml UD Cup PER TUBE SCH ×3 (09:11→20:17)
[2022-04-19] MEDS: niCARdipine 50 MG in Sodium Chloride 0.9% 250 ML 230 ML IVPB SCH (09:12)
[2022-04-19] MEDS: Sterile Water 10 ML VIAL FS SCH ×2 (09:13→20:19)
[2022-04-19] MEDS: Senokot S 8.6-50 MG TAB PO SCH ×2 (09:13→20:18)
[2022-04-19] MEDS: Polyethylene Glycol 3350 17 GM Packet PER TUBE SCH (09:13)
[2022-04-19] MEDS ORDERED: METHadone HCl 10 MG TAB PER TUBE SCH (09:30)
[2022-04-19] MEDS ORDERED: ALPRAZolam 1 MG TAB PER TUBE SCH (09:30)
[2022-04-19] MEDS ORDERED: Gabapentin 300 MG CAP PER TUBE SCH (09:30)
[2022-04-19] MEDS ORDERED: DULoxetine 30 MG CAP PER TUBE SCH (09:30)
[2022-04-19] MEDS: Dextrose 5% in Water 1,000 ML IV SCH ×2 (09:57→20:18)
[2022-04-19] MEDS ORDERED: Fentanyl CADD 100 ML ONE (10:53)
[2022-04-19] MEDS: Fentanyl CADD 100 ML IV SCH ×2 (10:54→22:34)
[2022-04-19 12:29] LABS: Chloride 104 mmol/L (98-107); Potassium 4.1 mmol/L (3.5-5.1); Sodium 140 mmol/L (136-145)
[2022-04-19 12:30] LABS: Calcium 8.7 mg/dL (7.8-10.44); Glucose 142 mg/dL (70-105)
[2022-04-19 12:32] LABS: Anion Gap 16 mmol/L (10-20); Carbon Dioxide 24 mmol/L (22-29)
[2022-04-19 12:34] LABS: Calc. Creatinine Clearance 209 mL/min (70-130); Estimated GFR 121
[2022-04-19 12:35] LABS: BUN (Urea Nitrogen) 21 mg/dL (8.9-20.6)
[2022-04-19] MEDS: ALPRAZolam 1 MG TAB PER TUBE SCH ×3 (13:25→20:18)
[2022-04-19] MEDS: Gabapentin 300 MG CAP PER TUBE SCH ×2 (14:31→20:18)
[2022-04-20] MEDS: Meropenem 1 GM in Sodium Chloride 0.9% 100 ML IVPB SCH ×3 (00:32→16:53)
[2022-04-20 05:47] LABS: #Eosinphils 0.1 thou/uL (0.0-0.7); #Lymphocytes 1.3 thou/uL (1.20-3.40); #Monocytes 0.7 thou/uL (0.11-0.59); #Neutrophils 8.9 thou/uL (1.40-6.50); %Lymphocytes 11.9 % (21.0-51.0); %Monocytes 6.5 % (0.0-10.0); %Neutrophils 80.6 % (42.0-75.0); Hemoglobin 9.5 g/dL (14.0-18.0); Mean Corpuscular HGB CONC 33.9 g/dL (32.0-36.0); Mean Corpuscular Hemoglobin 29.3 pg (27.0-31.0); Mean Corpuscular Volume 86.4 fL (78.0-98.0); Mean Platelet Volume 7.4 fL (7.4-10.4); Platelet Count 377 thou/uL (130-400); RBC Distribution Width 13.9 % (11.5-14.5); Red Blood Cell (RBC) Count 3.24 mill/uL (4.70-6.10)
[2022-04-20 06:05] LABS: Anion Gap 13 mmol/L (10-20); BUN (Urea Nitrogen) 19 mg/dL (8.9-20.6); Calc. Creatinine Clearance 223 mL/min (70-130); Calcium 8.3 mg/dL (7.8-10.44); Carbon Dioxide 29 mmol/L (22-29); Chloride 101 mmol/L (98-107); Estimated GFR 124; Glucose 127 mg/dL (70-105); Sodium 139 mmol/L (136-145)
[2022-04-20] MEDS: Dextrose 5% in Water 1,000 ML IV SCH ×2 (06:28→16:55)
[2022-04-20] MEDS: Propofol 1,000 MG/100 ML VIAL IV PRN ×4 (06:28→20:35)
[2022-04-20] MEDS: Levothyroxine Sodium 100 MCG TAB PO SCH (06:28)
[2022-04-20] MEDS: Mometasone 100 MCG/Formoterol 5 MCG 120 PUFF INHALER INH SCH (07:17)
[2022-04-20] MEDS: Vecuronium 10 MG VIAL IVP PRN ×5 (07:31→15:23)
[2022-04-20 07:48] LABS: Actual Bicarbonate (HCO3a) 28.3 mEq/L (22-28); Base Excess (BEa) 4.4 mEq/L (-2.0 to +3.0); CO2 Tension 39.1 mmHg (35.0-45.0); Calcium, Ionized (arterial) 1.14 mmol/L (1.12-1.30); Carboxyhemoglobin (COHb) 0.3 gm% (0.0-3.0); Hemoglobin (Hb) 10.3 g/dL (14.0-18.0); Potassium - ABG Lab 4.04 mmol/L (3.70-5.30); pH, Arterial 7.48 (7.35-7.45)
[2022-04-20 07:50] LABS: O2 Tension (PaO2), arterial 53.8 mmHg (80.0-100.0); Puncture Site RRA
[2022-04-20 07:51] LABS: ALV-art Gradient 182.525 mmHg (0-20)
[2022-04-20] MEDS: Potassium Bicarbonate/Cit Ac 20 MEQ TAB PER TUBE SCH ×2 (07:57→16:55)
[2022-04-20] MEDS: Polyethylene Glycol 3350 17 GM Packet PER TUBE SCH (07:57)
[2022-04-20] MEDS: Gabapentin 300 MG CAP PER TUBE SCH ×3 (07:57→21:45)
[2022-04-20] MEDS: Enoxaparin Sodium 100 MG/ML SYRINGE SC SCH ×2 (07:57→21:44)
[2022-04-20] MEDS: Pantoprazole 40 MG VIAL IVP SCH (07:57)
[2022-04-20] MEDS: ALPRAZolam 1 MG TAB PER TUBE SCH ×4 (07:58→21:44)
[2022-04-20] MEDS: methylPREDNISolone Sod Succ 40 MG VIAL IVP SCH ×2 (07:58→21:44)
[2022-04-20] MEDS: hydrALAZINE 20 MG/ML VIAL SLOW IVP PRN (07:58)
[2022-04-20] MEDS: Midazolam HCl 2 mg/2 ml Vial SLOW IVP PRN ×3 (07:58→15:23)
[2022-04-20] MEDS: Senokot S 8.6-50 MG TAB PO SCH ×2 (07:59→21:44)
[2022-04-20] MEDS: Morphine 2 MG/ML VIAL SLOW IVP PRN ×3 (08:04→10:16)
[2022-04-20] MEDS: METHadone HCl 10 MG TAB PER TUBE SCH (08:05)
[2022-04-20] MEDS: DULoxetine 30 MG CAP PER TUBE SCH (08:05)
[2022-04-20] MEDS: Sterile Water 10 ML VIAL FS SCH ×2 (08:06→21:45)
[2022-04-20] MEDS: niCARdipine 50 MG in Sodium Chloride 0.9% 250 ML 230 ML IVPB SCH (08:25)
[2022-04-20] MEDS: Valproate Sodium 250 mg/5 ml UD Cup PER TUBE SCH ×3 (08:32→21:48)
[2022-04-20] MEDS: Insulin Glargine 30 UNITS/0.3 ML VIAL SC SCH (08:32)
[2022-04-20] MEDS ORDERED: Fentanyl CADD 100 ML ONE ×2 (08:50→18:11)
[2022-04-20] MEDS: Fentanyl CADD 100 ML IV SCH ×2 (08:56→18:13)
[2022-04-20] MEDS: Ketamine 500 MG in Sodium Chloride 0.9% 490 ML IVPB PRN (09:35)
[2022-04-20] MEDS ORDERED: Sterile Water 10 ML ONE ×2 (11:39→15:11)
[2022-04-20] MEDS: Ziprasidone 20 MG VIAL IM SCH ×2 (11:43→21:49)
[2022-04-20 16:21] LABS: ANA Symphony (Qualitative) Negative (Negative); ANA Symphony (Quantitative) 0.2 Ratio (< 0.7 Negative)
[2022-04-21] MEDS: Meropenem 1 GM in Sodium Chloride 0.9% 100 ML IVPB SCH ×3 (00:51→17:36)
[2022-04-21] MEDS: Dextrose 5% in Water 1,000 ML IV SCH ×3 (00:51→21:23)
[2022-04-21] MEDS: Propofol 1,000 MG/100 ML VIAL IV PRN ×5 (00:52→23:50)
[2022-04-21] MEDS: Ketamine 500 MG in Sodium Chloride 0.9% 490 ML IVPB PRN ×2 (02:33→15:44)
[2022-04-21] MEDS: Fentanyl CADD 100 ML IV SCH ×3 (04:24→23:18)
[2022-04-21 04:59] LABS: #Eosinphils 0.1 thou/uL (0.0-0.7); #Lymphocytes 0.5 thou/uL (1.20-3.40); #Monocytes 0.5 thou/uL (0.11-0.59); #Neutrophils 7.8 thou/uL (1.40-6.50); %Eosinophils 0.7 % (0.0-10.0); %Lymphocytes 5.6 % (21.0-51.0); %Monocytes 5.1 % (0.0-10.0); %Neutrophils 88.6 % (42.0-75.0); Hemoglobin 8.9 g/dL (14.0-18.0); Mean Corpuscular HGB CONC 32.8 g/dL (32.0-36.0); Mean Corpuscular Hemoglobin 28.7 pg (27.0-31.0); Mean Corpuscular Volume 87.5 fL (78.0-98.0); Mean Platelet Volume 7.3 fL (7.4-10.4); Platelet Count 367 thou/uL (130-400); RBC Distribution Width 14.1 % (11.5-14.5); Red Blood Cell (RBC) Count 3.11 mill/uL (4.70-6.10); White Blood Cell (WBC) Count 8.8 thou/uL (4.8-10.8)
[2022-04-21 05:04] LABS: Anion Gap 14 mmol/L (10-20); BUN (Urea Nitrogen) 15 mg/dL (8.9-20.6); Calc. Creatinine Clearance 227 mL/min (70-130); Calcium 8.3 mg/dL (7.8-10.44); Carbon Dioxide 31 mmol/L (22-29); Chloride 101 mmol/L (98-107); Estimated GFR 125; Glucose 178 mg/dL (70-105); Potassium 4.5 mmol/L (3.5-5.1); Sodium 141 mmol/L (136-145)
[2022-04-21] MEDS: Insulin Regular 300 UNITS/3 ML VIAL SC PRN ×2 (05:21→17:36)
[2022-04-21] MEDS: Levothyroxine Sodium 100 MCG TAB PO SCH (06:11)
[2022-04-21] MEDS: Mometasone 100 MCG/Formoterol 5 MCG 120 PUFF INHALER INH SCH (07:12)
[2022-04-21 07:22] LABS: Actual Bicarbonate (HCO3a) 30.5 mEq/L (22-28); CO2 Tension 44.2 mmHg (35.0-45.0); Calcium, Ionized (arterial) 1.17 mmol/L (1.12-1.30); Carboxyhemoglobin (COHb) 0.2 gm% (0.0-3.0); Hemoglobin (Hb) 10.6 g/dL (14.0-18.0); O2 Tension (PaO2), arterial 75.8 mmHg (80.0-100.0); pH, Arterial 7.46 (7.35-7.45)
[2022-04-21 07:24] LABS: Puncture Site RRA
[2022-04-21] MEDS: Polyethylene Glycol 3350 17 GM Packet PER TUBE SCH (08:32)
[2022-04-21] MEDS: Potassium Bicarbonate/Cit Ac 20 MEQ TAB PER TUBE SCH ×2 (08:32→16:58)
[2022-04-21] MEDS: Enoxaparin Sodium 100 MG/ML SYRINGE SC SCH ×2 (08:32→21:21)
[2022-04-21] MEDS: Valproate Sodium 250 mg/5 ml UD Cup PER TUBE SCH ×3 (08:32→21:22)
[2022-04-21] MEDS: Senokot S 8.6-50 MG TAB PO SCH ×2 (08:33→21:20)
[2022-04-21] MEDS: Pantoprazole 40 MG VIAL IVP SCH (08:33)
[2022-04-21] MEDS: Sterile Water 10 ML VIAL FS SCH ×2 (08:33→21:33)
[2022-04-21] MEDS: ALPRAZolam 1 MG TAB PER TUBE SCH ×4 (08:33→21:20)
[2022-04-21] MEDS: Gabapentin 300 MG CAP PER TUBE SCH ×3 (08:33→21:20)
[2022-04-21] MEDS: methylPREDNISolone Sod Succ 40 MG VIAL IVP SCH ×2 (08:33→21:21)
[2022-04-21] MEDS: DULoxetine 30 MG CAP PER TUBE SCH (08:34)
[2022-04-21] MEDS: METHadone HCl 10 MG TAB PER TUBE SCH (08:34)
[2022-04-21] MEDS: Insulin Glargine 30 UNITS/0.3 ML VIAL SC SCH (09:00)
[2022-04-21] MEDS: Ziprasidone 20 MG VIAL IM SCH ×2 (11:55→21:33)
[2022-04-21] MEDS ORDERED: Fentanyl CADD 100 ML ONE (13:37)
[2022-04-22] MEDS: Meropenem 1 GM in Sodium Chloride 0.9% 100 ML IVPB SCH ×2 (01:00→07:29)
[2022-04-22] MEDS: Propofol 1,000 MG/100 ML VIAL IV PRN ×5 (04:17→21:55)
[2022-04-22 05:15] LABS: ALT (SGPT) 30 U/L (8-55); AST (SGOT) 11 U/L (5-34); Alkaline Phosphatase 179 U/L (40-110); Anion Gap 14 mmol/L (10-20); BUN (Urea Nitrogen) 12 mg/dL (8.9-20.6); Bilirubin, Total 0.4 mg/dL (0.2-1.2); Calc. Creatinine Clearance 209 mL/min (70-130); Calcium 8.8 mg/dL (7.8-10.44); Carbon Dioxide 33 mmol/L (22-29); Chloride 100 mmol/L (98-107); Estimated GFR 123; Glucose 160 mg/dL (70-105); Magnesium 1.9 mg/dL (1.6-2.6); Potassium 4.5 mmol/L (3.5-5.1); Sodium 142 mmol/L (136-145)
[2022-04-22] MEDS: Ketamine 500 MG in Sodium Chloride 0.9% 490 ML IVPB PRN ×2 (05:30→18:24)
[2022-04-22] MEDS: Levothyroxine Sodium 100 MCG TAB PO SCH (05:30)
[2022-04-22 05:54] LABS: Eosinophils 1 % (0-10); Hemoglobin 10.4 g/dL (14.0-18.0); Lymphocytes 4 % (21-51); MDiff Complete? YES; Mean Corpuscular HGB CONC 33.3 g/dL (32.0-36.0); Mean Corpuscular Hemoglobin 29.2 pg (27.0-31.0); Mean Corpuscular Volume 87.7 fL (78.0-98.0); Mean Platelet Volume 7.4 fL (7.4-10.4); Monocytes 4 % (0-10); Neutrophil 91 % (42-75); Platelet Count 505 thou/uL (130-400); Platelet Morphology Comment Appears Increased; RBC Distribution Width 14.4 % (11.5-14.5); RBC Morphology Normal; Red Blood Cell (RBC) Count 3.57 mill/uL (4.70-6.10); White Blood Cell (WBC) Count 12.2 thou/uL (4.8-10.8)
[2022-04-22] MEDS: Insulin Regular 300 UNITS/3 ML VIAL SC PRN (06:34)
[2022-04-22] MEDS: Enoxaparin Sodium 100 MG/ML SYRINGE SC SCH ×2 (07:29→21:02)
[2022-04-22] MEDS: Dextrose 5% in Water 1,000 ML IV SCH ×2 (07:29→17:21)
[2022-04-22] MEDS: METHadone HCl 10 MG TAB PER TUBE SCH (07:30)
[2022-04-22] MEDS: ALPRAZolam 1 MG TAB PER TUBE SCH ×4 (07:30→21:03)
[2022-04-22] MEDS: Gabapentin 300 MG CAP PER TUBE SCH ×3 (07:30→21:03)
[2022-04-22] MEDS: Potassium Bicarbonate/Cit Ac 20 MEQ TAB PER TUBE SCH ×2 (07:30→15:52)
[2022-04-22] MEDS: DULoxetine 30 MG CAP PER TUBE SCH (07:31)
[2022-04-22] MEDS: Senokot S 8.6-50 MG TAB PO SCH ×2 (07:31→21:03)
[2022-04-22] MEDS: Polyethylene Glycol 3350 17 GM Packet PER TUBE SCH (07:32)
[2022-04-22] MEDS: Pantoprazole 40 MG VIAL IVP SCH (07:32)
[2022-04-22] MEDS: Sterile Water 10 ML VIAL FS SCH ×2 (07:33→22:12)
[2022-04-22] MEDS: methylPREDNISolone Sod Succ 40 MG VIAL IVP SCH ×2 (07:41→21:03)
[2022-04-22] MEDS: Valproate Sodium 250 mg/5 ml UD Cup PER TUBE SCH ×3 (07:41→21:04)
[2022-04-22] MEDS: Mometasone 100 MCG/Formoterol 5 MCG 120 PUFF INHALER INH SCH (07:53)
[2022-04-22] MEDS ORDERED: Magnesium 2 GM/50 ML(in water) 2 GM in Premix Bag 1 BAG IVPB SCH (08:00)
[2022-04-22 08:04] LABS: Actual Bicarbonate (HCO3a) 33.9 mEq/L (22-28); Base Excess (BEa) 8.5 mEq/L (-2.0 to +3.0); CO2 Tension 51.3 mmHg (35.0-45.0); Calcium, Ionized (arterial) 1.15 mmol/L (1.12-1.30); Carboxyhemoglobin (COHb) 0.4 gm% (0.0-3.0); O2 Tension (PaO2), arterial 65.7 mmHg (80.0-100.0); Potassium - ABG Lab 4.58 mmol/L (3.70-5.30); pH, Arterial 7.44 (7.35-7.45)
[2022-04-22 08:07] LABS: ALV-art Gradient 155.375 mmHg (0-20); Puncture Site RRA
[2022-04-22] MEDS: Insulin Glargine 30 UNITS/0.3 ML VIAL SC SCH (08:19)
[2022-04-22] MEDS ORDERED: Fentanyl CADD 100 ML ONE ×2 (09:19→18:20)
[2022-04-22] MEDS: Fentanyl CADD 100 ML IV SCH ×2 (09:25→18:22)
[2022-04-22] MEDS: Ziprasidone 20 MG VIAL IM SCH ×2 (10:33→22:12)
[2022-04-22 11:25] LABS: Triglycerides 255 mg/dL (Less than 150)
[2022-04-22 14:21] LABS: Anion Gap 15 mmol/L (10-20); BUN (Urea Nitrogen) 13 mg/dL (8.9-20.6); Calc. Creatinine Clearance 206 mL/min (70-130); Calcium 9.5 mg/dL (7.8-10.44); Carbon Dioxide 32 mmol/L (22-29); Chloride 98 mmol/L (98-107); Estimated GFR 123; Glucose 146 mg/dL (70-105); Potassium 4.5 mmol/L (3.5-5.1); Sodium 140 mmol/L (136-145)
[2022-04-22] MEDS: Meropenem 2 GM, Admixture Fee 1 EACH in Sodium Chloride 0.9% 100 ML IVPB SCH (15:51)
[2022-04-23] MEDS: Meropenem 2 GM, Admixture Fee 1 EACH in Sodium Chloride 0.9% 100 ML IVPB SCH ×3 (01:00→16:42)
[2022-04-23] MEDS: Propofol 1,000 MG/100 ML VIAL IV PRN ×4 (02:00→20:28)
[2022-04-23] MEDS: Fentanyl CADD 100 ML IV SCH ×2 (04:32→14:30)
[2022-04-23] MEDS: Dextrose 5% in Water 1,000 ML IV SCH ×2 (04:37→14:35)
[2022-04-23 04:48] LABS: #Eosinphils 0.1 thou/uL (0.0-0.7); #Lymphocytes 0.6 thou/uL (1.20-3.40); #Monocytes 0.6 thou/uL (0.11-0.59); %Basophils 0.1 % (0.0-1.0); %Eosinophils 0.6 % (0.0-10.0); %Lymphocytes 5.4 % (21.0-51.0); %Monocytes 5.5 % (0.0-10.0); %Neutrophils 88.4 % (42.0-75.0); Hemoglobin 10.4 g/dL (14.0-18.0); Mean Corpuscular HGB CONC 31.9 g/dL (32.0-36.0); Mean Corpuscular Volume 87.5 fL (78.0-98.0); Mean Platelet Volume 7.5 fL (7.4-10.4); Platelet Count 521 thou/uL (130-400); RBC Distribution Width 14.7 % (11.5-14.5); Red Blood Cell (RBC) Count 3.72 mill/uL (4.70-6.10); White Blood Cell (WBC) Count 11.4 thou/uL (4.8-10.8)
[2022-04-23 05:15] LABS: ALT (SGPT) 53 U/L (8-55); AST (SGOT) 29 U/L (5-34); Albumin 3.1 g/dL (3.5-5.0); Alkaline Phosphatase 214 U/L (40-110); Anion Gap 15 mmol/L (10-20); BUN (Urea Nitrogen) 14 mg/dL (8.9-20.6); Bilirubin, Total 0.5 mg/dL (0.2-1.2); Calc. Creatinine Clearance 193 mL/min (70-130); Calcium 9.1 mg/dL (7.8-10.44); Carbon Dioxide 33 mmol/L (22-29); Chloride 96 mmol/L (98-107); Estimated GFR 120; Globulin 3.2 g/dL (2.4-3.5); Glucose 189 mg/dL (70-105); Potassium 4.8 mmol/L (3.5-5.1); Protein, Total 6.3 g/dL (6.0-8.3); Sodium 139 mmol/L (136-145)
[2022-04-23] MEDS: Insulin Regular 300 UNITS/3 ML VIAL SC PRN (06:15)
[2022-04-23] MEDS: Levothyroxine Sodium 100 MCG TAB PO SCH (06:15)
[2022-04-23] MEDS: Mometasone 100 MCG/Formoterol 5 MCG 120 PUFF INHALER INH SCH (07:37)
[2022-04-23] MEDS: Ketamine 500 MG in Sodium Chloride 0.9% 490 ML IVPB PRN ×2 (07:44→21:53)
[2022-04-23 07:45] LABS: Actual Bicarbonate (HCO3a) 33.2 mEq/L (22-28); Base Excess (BEa) 8.1 mEq/L (-2.0 to +3.0); CO2 Tension 48.9 mmHg (35.0-45.0); Calcium, Ionized (arterial) 1.15 mmol/L (1.12-1.30); Carboxyhemoglobin (COHb) 0.2 gm% (0.0-3.0); Hemoglobin (Hb) 10.6 g/dL (14.0-18.0); O2 Tension (PaO2), arterial 66.2 mmHg (80.0-100.0); Potassium - ABG Lab 4.49 mmol/L (3.70-5.30); pH, Arterial 7.45 (7.35-7.45)
[2022-04-23 07:52] LABS: ALV-art Gradient 157.875 mmHg (0-20); Puncture Site RRA
[2022-04-23] MEDS: Potassium Bicarbonate/Cit Ac 20 MEQ TAB PER TUBE SCH ×2 (07:58→15:47)
[2022-04-23] MEDS: METHadone HCl 10 MG TAB PER TUBE SCH (07:58)
[2022-04-23] MEDS: DULoxetine 30 MG CAP PER TUBE SCH (07:58)
[2022-04-23] MEDS: Enoxaparin Sodium 100 MG/ML SYRINGE SC SCH ×2 (07:59→20:26)
[2022-04-23] MEDS: Pantoprazole 40 MG VIAL IVP SCH (07:59)
[2022-04-23] MEDS: methylPREDNISolone Sod Succ 40 MG VIAL IVP SCH ×2 (07:59→20:30)
[2022-04-23] MEDS: Valproate Sodium 250 mg/5 ml UD Cup PER TUBE SCH ×3 (07:59→22:00)
[2022-04-23] MEDS: Gabapentin 300 MG CAP PER TUBE SCH ×3 (07:59→20:29)
[2022-04-23] MEDS: Senokot S 8.6-50 MG TAB PO SCH ×2 (08:00→20:30)
[2022-04-23] MEDS: Polyethylene Glycol 3350 17 GM Packet PER TUBE SCH (08:00)
[2022-04-23] MEDS ORDERED: Magnesium 2 GM/50 ML(in water) 2 GM in Premix Bag 1 BAG IVPB SCH (08:00)
[2022-04-23] MEDS: ALPRAZolam 1 MG TAB PER TUBE SCH ×4 (08:01→20:33)
[2022-04-23] MEDS: Insulin Glargine 30 UNITS/0.3 ML VIAL SC SCH (08:42)
[2022-04-23] MEDS: Ziprasidone 20 MG VIAL IM SCH ×2 (10:33→23:15)
[2022-04-23] MEDS: Scopolamine 1.5 mg/72 hour Patch TD SCH (10:33)
[2022-04-23] MEDS: Sterile Water 10 ML VIAL FS SCH ×2 (10:33→20:33)
[2022-04-23] MEDS ORDERED: Fentanyl CADD 100 ML ONE (14:29)
[2022-04-24] MEDS: Dextrose 5% in Water 1,000 ML IV SCH ×3 (00:30→21:36)
[2022-04-24] MEDS: Meropenem 2 GM, Admixture Fee 1 EACH in Sodium Chloride 0.9% 100 ML IVPB SCH ×3 (00:30→16:48)
[2022-04-24] MEDS: Insulin Regular 300 UNITS/3 ML VIAL SC PRN (03:19)
[2022-04-24] MEDS ORDERED: Fentanyl CADD 100 ML ONE ×2 (03:38→23:58)
[2022-04-24] MEDS ORDERED: fentaNYL Citrate/PF 2,000 MCG in Sodium Chloride 0.9% 60 ML IV SCH (04:00)
[2022-04-24 04:47] LABS: #Eosinphils 0.1 thou/uL (0.0-0.7); #Lymphocytes 0.9 thou/uL (1.20-3.40); #Monocytes 0.9 thou/uL (0.11-0.59); #Neutrophils 12.1 thou/uL (1.40-6.50); %Basophils 0.1 % (0.0-1.0); %Eosinophils 0.5 % (0.0-10.0); %Lymphocytes 6.3 % (21.0-51.0); %Monocytes 6.2 % (0.0-10.0); Hemoglobin 9.6 g/dL (14.0-18.0); Mean Corpuscular Volume 87.4 fL (78.0-98.0); Mean Platelet Volume 7.5 fL (7.4-10.4); Platelet Count 537 thou/uL (130-400); RBC Distribution Width 14.6 % (11.5-14.5); Red Blood Cell (RBC) Count 3.44 mill/uL (4.70-6.10); White Blood Cell (WBC) Count 13.9 thou/uL (4.8-10.8)
[2022-04-24 05:15] LABS: ALT (SGPT) 108 U/L (8-55); AST (SGOT) 56 U/L (5-34); Albumin 3.1 g/dL (3.5-5.0); Alkaline Phosphatase 297 U/L (40-110); BUN (Urea Nitrogen) 18 mg/dL (8.9-20.6); Bilirubin, Total 0.8 mg/dL (0.2-1.2); Calc. Creatinine Clearance 172 mL/min (70-130); Calcium 9.3 mg/dL (7.8-10.44); Carbon Dioxide 33 mmol/L (22-29); Chloride 94 mmol/L (98-107); Estimated GFR 118; Globulin 3.1 g/dL (2.4-3.5); Glucose 167 mg/dL (70-105); Magnesium 2.1 mg/dL (1.6-2.6); Potassium 4.7 mmol/L (3.5-5.1); Protein, Total 6.2 g/dL (6.0-8.3); Sodium 137 mmol/L (136-145)
[2022-04-24 05:29] LABS: Anion Gap 15 mmol/L (10-20)
[2022-04-24] MEDS: Levothyroxine Sodium 100 MCG TAB PO SCH (05:54)
[2022-04-24] MEDS: Mometasone 100 MCG/Formoterol 5 MCG 120 PUFF INHALER INH SCH (06:52)
[2022-04-24 07:00] LABS: Actual Bicarbonate (HCO3a) 34.9 mEq/L (22-28); Base Excess (BEa) 10.2 mEq/L (-2.0 to +3.0); CO2 Tension 47.6 mmHg (35.0-45.0); Calcium, Ionized (arterial) 1.15 mmol/L (1.12-1.30); Carboxyhemoglobin (COHb) 0.3 gm% (0.0-3.0); Hemoglobin (Hb) 10.3 g/dL (14.0-18.0); O2 Tension (PaO2), arterial 88.9 mmHg (80.0-100.0); Potassium - ABG Lab 4.58 mmol/L (3.70-5.30); pH, Arterial 7.48 (7.35-7.45)
[2022-04-24 07:02] LABS: Puncture Site RRA
[2022-04-24] MEDS: Potassium Bicarbonate/Cit Ac 20 MEQ TAB PER TUBE SCH ×2 (09:22→17:57)
[2022-04-24] MEDS: Pantoprazole 40 MG VIAL IVP SCH (09:23)
[2022-04-24] MEDS: methylPREDNISolone Sod Succ 40 MG VIAL IVP SCH (09:23)
[2022-04-24] MEDS: DULoxetine 30 MG CAP PER TUBE SCH (09:23)
[2022-04-24] MEDS: Enoxaparin Sodium 100 MG/ML SYRINGE SC SCH ×2 (09:23→20:34)
[2022-04-24] MEDS: Gabapentin 300 MG CAP PER TUBE SCH ×3 (09:24→20:34)
[2022-04-24] MEDS: ALPRAZolam 1 MG TAB PER TUBE SCH ×4 (09:25→20:35)
[2022-04-24] MEDS: Valproate Sodium 250 mg/5 ml UD Cup PER TUBE SCH (09:25)
[2022-04-24] MEDS: Propofol 1,000 MG/100 ML VIAL IV PRN ×3 (09:25→20:35)
[2022-04-24] MEDS: Senokot S 8.6-50 MG TAB PO SCH ×2 (09:26→20:45)
[2022-04-24] MEDS: METHadone HCl 10 MG TAB PER TUBE SCH (09:26)
[2022-04-24] MEDS: Polyethylene Glycol 3350 17 GM Packet PER TUBE SCH (09:26)
[2022-04-24] MEDS ORDERED: Cyproheptadine 4 MG TAB PO SCH (10:15)
[2022-04-24] MEDS ORDERED: Cyproheptadine 4 MG TAB PER TUBE SCH (10:30)
[2022-04-24] MEDS: Sterile Water 10 ML VIAL FS SCH ×2 (10:43→21:37)
[2022-04-24] MEDS: Insulin Glargine 30 UNITS/0.3 ML VIAL SC SCH (10:43)
[2022-04-24] MEDS: Cyproheptadine 4 MG TAB PER TUBE SCH ×2 (14:10→21:35)
[2022-04-25] MEDS: Propofol 1,000 MG/100 ML VIAL IV PRN ×5 (01:09→20:47)
[2022-04-25] MEDS: Meropenem 2 GM, Admixture Fee 1 EACH in Sodium Chloride 0.9% 100 ML IVPB SCH ×3 (02:07→16:07)
[2022-04-25] MEDS: Morphine 2 MG/ML VIAL SLOW IVP PRN (02:30)
[2022-04-25 04:35] LABS: #Eosinphils 0.2 thou/uL (0.0-0.7); #Lymphocytes 1.7 thou/uL (1.20-3.40); #Monocytes 0.9 thou/uL (0.11-0.59); #Neutrophils 6.3 thou/uL (1.40-6.50); %Eosinophils 1.9 % (0.0-10.0); %Lymphocytes 18.8 % (21.0-51.0); %Monocytes 9.8 % (0.0-10.0); %Neutrophils 69.5 % (42.0-75.0); Hemoglobin 9.1 g/dL (14.0-18.0); Mean Corpuscular Hemoglobin 27.8 pg (27.0-31.0); Mean Platelet Volume 7.2 fL (7.4-10.4); Platelet Count 481 thou/uL (130-400); RBC Distribution Width 14.2 % (11.5-14.5); Red Blood Cell (RBC) Count 3.26 mill/uL (4.70-6.10)
[2022-04-25 04:53] LABS: ALT (SGPT) 115 U/L (8-55); AST (SGOT) 62 U/L (5-34); Alkaline Phosphatase 257 U/L (40-110); Anion Gap 12 mmol/L (10-20); BUN (Urea Nitrogen) 17 mg/dL (8.9-20.6); Bilirubin, Total 0.5 mg/dL (0.2-1.2); Calc. Creatinine Clearance 180 mL/min (70-130); Calcium 9.1 mg/dL (7.8-10.44); Carbon Dioxide 34 mmol/L (22-29); Chloride 95 mmol/L (98-107); Estimated GFR 120; Globulin 2.9 g/dL (2.4-3.5); Glucose 125 mg/dL (70-105); Magnesium 1.9 mg/dL (1.6-2.6); Potassium 3.6 mmol/L (3.5-5.1); Protein, Total 5.9 g/dL (6.0-8.3); Sodium 137 mmol/L (136-145)
[2022-04-25] MEDS: Levothyroxine Sodium 100 MCG TAB PO SCH (05:42)
[2022-04-25] MEDS: Cyproheptadine 4 MG TAB PER TUBE SCH ×3 (05:42→21:35)
[2022-04-25] MEDS: Dextrose 5% in Water 1,000 ML IV SCH ×2 (05:42→16:02)
[2022-04-25] MEDS ORDERED: Magnesium 2 GM/50 ML(in water) 2 GM in Premix Bag 1 BAG IVPB SCH (06:00)
[2022-04-25] MEDS ORDERED: Fentanyl BOLUS 250 ML IVPB PRN (06:51)
[2022-04-25] MEDS ORDERED: Morphine 2 MG/ML VIAL SLOW IVP PRN (06:52)
[2022-04-25] MEDS ORDERED: Midazolam HCl 2 mg/2 ml Vial SLOW IVP PRN (06:53)
[2022-04-25 07:21] LABS: Actual Bicarbonate (HCO3a) 35.1 mEq/L (22-28); Base Excess (BEa) 10.8 mEq/L (-2.0 to +3.0); CO2 Tension 46.2 mmHg (35.0-45.0); Calcium, Ionized (arterial) 1.14 mmol/L (1.12-1.30); Carboxyhemoglobin (COHb) 0.3 gm% (0.0-3.0); Hemoglobin (Hb) 9.8 g/dL (14.0-18.0); O2 Tension (PaO2), arterial 62.3 mmHg (80.0-100.0); Potassium - ABG Lab 3.59 mmol/L (3.70-5.30)
[2022-04-25] MEDS: Mometasone 100 MCG/Formoterol 5 MCG 120 PUFF INHALER INH SCH (07:23)
[2022-04-25 07:30] LABS: Puncture Site RRA
[2022-04-25] MEDS: ALPRAZolam 1 MG TAB PER TUBE SCH ×3 (08:40→16:07)
[2022-04-25] MEDS: Potassium Bicarbonate/Cit Ac 20 MEQ TAB PER TUBE SCH ×2 (08:40→16:08)
[2022-04-25] MEDS: Gabapentin 300 MG CAP PER TUBE SCH ×3 (08:41→20:31)
[2022-04-25] MEDS: Enoxaparin Sodium 100 MG/ML SYRINGE SC SCH ×2 (08:41→20:31)
[2022-04-25] MEDS: Pantoprazole 40 MG VIAL IVP SCH (08:41)
[2022-04-25] MEDS: Polyethylene Glycol 3350 17 GM Packet PER TUBE SCH (08:42)
[2022-04-25] MEDS: Senokot S 8.6-50 MG TAB PO SCH ×2 (08:42→20:31)
[2022-04-25] MEDS: Sterile Water 10 ML VIAL FS SCH ×2 (08:42→20:32)
[2022-04-25] MEDS: Insulin Glargine 30 UNITS/0.3 ML VIAL SC SCH (08:49)
[2022-04-25] MEDS: methylPREDNISolone Sod Succ 40 MG VIAL IVP SCH (10:00)
[2022-04-25 13:13] LABS: Anion Gap 15 mmol/L (10-20); BUN (Urea Nitrogen) 15 mg/dL (8.9-20.6); Calc. Creatinine Clearance 171 mL/min (70-130); Calcium 9.2 mg/dL (7.8-10.44); Carbon Dioxide 32 mmol/L (22-29); Chloride 96 mmol/L (98-107); Estimated GFR 120; Glucose 145 mg/dL (70-105); Potassium 4.1 mmol/L (3.5-5.1); Sodium 139 mmol/L (136-145)
[2022-04-25] MEDS ORDERED: Fentanyl CADD 100 ML ONE (21:39)
[2022-04-25] MEDS: Fentanyl CADD 100 ML IV SCH (21:47)
[2022-04-26] MEDS: Meropenem 2 GM, Admixture Fee 1 EACH in Sodium Chloride 0.9% 100 ML IVPB SCH ×4 (00:16→23:04)
[2022-04-26] MEDS: Dextrose 5% in Water 1,000 ML IV SCH ×3 (01:35→20:58)
[2022-04-26] MEDS: Propofol 1,000 MG/100 ML VIAL IV PRN ×5 (02:34→19:41)
[2022-04-26 04:09] LABS: #Basophils 0.1 thou/uL (0.0-0.2); #Eosinphils 0.2 thou/uL (0.0-0.7); #Lymphocytes 1.9 thou/uL (1.20-3.40); #Monocytes 0.8 thou/uL (0.11-0.59); #Neutrophils 5.1 thou/uL (1.40-6.50); %Basophils 0.7 % (0.0-1.0); %Eosinophils 2.9 % (0.0-10.0); %Lymphocytes 23.6 % (21.0-51.0); %Monocytes 9.9 % (0.0-10.0); %Neutrophils 62.9 % (42.0-75.0); Hemoglobin 9.4 g/dL (14.0-18.0); Mean Corpuscular Hemoglobin 28.5 pg (27.0-31.0); Mean Corpuscular Volume 86.6 fL (78.0-98.0); Mean Platelet Volume 6.7 fL (7.4-10.4); Platelet Count 550 thou/uL (130-400); RBC Distribution Width 14.1 % (11.5-14.5); Red Blood Cell (RBC) Count 3.28 mill/uL (4.70-6.10); White Blood Cell (WBC) Count 8.1 thou/uL (4.8-10.8)
[2022-04-26 04:43] LABS: ALT (SGPT) 330 U/L (8-55); AST (SGOT) 157 U/L (5-34); Albumin 3.2 g/dL (3.5-5.0); Alkaline Phosphatase 368 U/L (40-110); Anion Gap 13 mmol/L (10-20); BUN (Urea Nitrogen) 18 mg/dL (8.9-20.6); Calc. Creatinine Clearance 174 mL/min (70-130); Carbon Dioxide 32 mmol/L (22-29); Chloride 96 mmol/L (98-107); Estimated GFR 120; Globulin 3.2 g/dL (2.4-3.5); Glucose 116 mg/dL (70-105); Magnesium 2.1 mg/dL (1.6-2.6); Potassium 3.8 mmol/L (3.5-5.1); Protein, Total 6.4 g/dL (6.0-8.3); Sodium 137 mmol/L (136-145)
[2022-04-26 04:51] LABS: Bilirubin, Total 0.5 mg/dL (0.2-1.2); HBCM Index 0.05 S/CO (0-0.79); HBSAg Index 0.27 S/CO (0-0.99); Hep A IgM AB Non-Reactive (NonReactive); Hep A IgM S/CO 0.09 S/CO (0-0.79); Hep B Surf Ag Non-Reactive S/CO (NonReactive); Hep C IgG Ab Non-Reactive (NonReactive); Hepatitis B Core IgM Abs Non-Reactive (NonReactive)
[2022-04-26] MEDS: Cyproheptadine 4 MG TAB PER TUBE SCH ×3 (05:53→21:43)
[2022-04-26] MEDS: Levothyroxine Sodium 100 MCG TAB PO SCH (05:53)
[2022-04-26] MEDS: Mometasone 100 MCG/Formoterol 5 MCG 120 PUFF INHALER INH SCH (07:39)
[2022-04-26 07:53] LABS: Actual Bicarbonate (HCO3a) 30.6 mEq/L (22-28); Base Excess (BEa) 6.1 mEq/L (-2.0 to +3.0); CO2 Tension 44.1 mmHg (35.0-45.0); Calcium, Ionized (arterial) 1.16 mmol/L (1.12-1.30); Carboxyhemoglobin (COHb) 0.3 gm% (0.0-3.0); Hemoglobin (Hb) 10.1 g/dL (14.0-18.0); O2 Tension (PaO2), arterial 69.1 mmHg (80.0-100.0); Potassium - ABG Lab 3.78 mmol/L (3.70-5.30); pH, Arterial 7.46 (7.35-7.45)
[2022-04-26 07:54] LABS: Puncture Site RRA
[2022-04-26 07:55] LABS: ALV-art Gradient 160.975 mmHg (0-20)
[2022-04-26] MEDS: Insulin Glargine 30 UNITS/0.3 ML VIAL SC SCH (08:55)
[2022-04-26] MEDS: methylPREDNISolone Sod Succ 40 MG VIAL IVP SCH (08:55)
[2022-04-26] MEDS: Pantoprazole 40 MG VIAL IVP SCH (08:56)
[2022-04-26] MEDS: Potassium Bicarbonate/Cit Ac 20 MEQ TAB PER TUBE SCH ×2 (08:56→16:57)
[2022-04-26] MEDS: Scopolamine 1.5 mg/72 hour Patch TD SCH (08:56)
[2022-04-26] MEDS: Gabapentin 300 MG CAP PER TUBE SCH ×3 (08:56→20:07)
[2022-04-26] MEDS: Polyethylene Glycol 3350 17 GM Packet PER TUBE SCH (08:57)
[2022-04-26] MEDS: Senokot S 8.6-50 MG TAB PO SCH ×2 (08:57→20:07)
[2022-04-26] MEDS: Enoxaparin Sodium 100 MG/ML SYRINGE SC SCH ×2 (08:57→20:07)
[2022-04-26] MEDS: Sterile Water 10 ML VIAL FS SCH ×2 (08:58→20:08)
[2022-04-26] MEDS: fentaNYL 50 mcg/hour Patch TD SCH (12:38)
[2022-04-26] MEDS: Fentanyl CADD 100 ML IV SCH (19:04)
[2022-04-27] MEDS: Propofol 1,000 MG/100 ML VIAL IV PRN ×6 (00:50→20:44)
[2022-04-27 04:28] LABS: #Eosinphils 0.3 thou/uL (0.0-0.7); #Monocytes 0.6 thou/uL (0.11-0.59); #Neutrophils 4.6 thou/uL (1.40-6.50); %Basophils 0.5 % (0.0-1.0); %Eosinophils 3.5 % (0.0-10.0); %Lymphocytes 26.9 % (21.0-51.0); %Monocytes 7.3 % (0.0-10.0); %Neutrophils 61.7 % (42.0-75.0); Hemoglobin 9.5 g/dL (14.0-18.0); Mean Corpuscular HGB CONC 32.8 g/dL (32.0-36.0); Mean Corpuscular Hemoglobin 28.2 pg (27.0-31.0); Mean Corpuscular Volume 86.2 fL (78.0-98.0); Mean Platelet Volume 6.8 fL (7.4-10.4); Platelet Count 467 thou/uL (130-400); RBC Distribution Width 13.8 % (11.5-14.5); Red Blood Cell (RBC) Count 3.37 mill/uL (4.70-6.10); White Blood Cell (WBC) Count 7.5 thou/uL (4.8-10.8)
[2022-04-27 04:52] LABS: ALT (SGPT) 469 U/L (8-55); AST (SGOT) 422 U/L (5-34); Albumin 3.2 g/dL (3.5-5.0); Alkaline Phosphatase 438 U/L (40-110); Anion Gap 11 mmol/L (10-20); BUN (Urea Nitrogen) 16 mg/dL (8.9-20.6); Bilirubin, Total 1.2 mg/dL (0.2-1.2); Calc. Creatinine Clearance 171 mL/min (70-130); Calcium 9.1 mg/dL (7.8-10.44); Carbon Dioxide 33 mmol/L (22-29); Chloride 95 mmol/L (98-107); Estimated GFR 121; Globulin 3.1 g/dL (2.4-3.5); Glucose 129 mg/dL (70-105); Potassium 3.8 mmol/L (3.5-5.1); Protein, Total 6.3 g/dL (6.0-8.3); Sodium 135 mmol/L (136-145)
[2022-04-27] MEDS ORDERED: Magnesium 2 GM/50 ML(in water) 2 GM in Premix Bag 1 BAG IVPB SCH (05:45)
[2022-04-27] MEDS: Levothyroxine Sodium 100 MCG TAB PO SCH (05:58)
[2022-04-27] MEDS: Cyproheptadine 4 MG TAB PER TUBE SCH ×3 (05:58→21:23)
[2022-04-27] MEDS: Dextrose 5% in Water 1,000 ML IV SCH ×2 (05:59→16:42)
[2022-04-27 06:33] LABS: Base Excess (BEa) 9.1 mEq/L (-2.0 to +3.0); CO2 Tension 54.9 mmHg (35.0-45.0); Calcium, Ionized (arterial) 1.18 mmol/L (1.12-1.30); Carboxyhemoglobin (COHb) 0.3 gm% (0.0-3.0); Hemoglobin (Hb) 10.3 g/dL (14.0-18.0); O2 Tension (PaO2), arterial 89.6 mmHg (80.0-100.0); Potassium - ABG Lab 3.88 mmol/L (3.70-5.30); pH, Arterial 7.42 (7.35-7.45)
[2022-04-27] MEDS: Mometasone 100 MCG/Formoterol 5 MCG 120 PUFF INHALER INH SCH (06:37)
[2022-04-27 06:38] LABS: ALV-art Gradient 126.975 mmHg (0-20); Puncture Site RRA
[2022-04-27] MEDS: methylPREDNISolone Sod Succ 40 MG VIAL IVP SCH (09:48)
[2022-04-27] MEDS: Gabapentin 300 MG CAP PER TUBE SCH ×3 (09:48→20:45)
[2022-04-27] MEDS: Pantoprazole 40 MG VIAL IVP SCH (09:48)
[2022-04-27] MEDS: Enoxaparin Sodium 100 MG/ML SYRINGE SC SCH ×2 (09:48→20:46)
[2022-04-27] MEDS: Senokot S 8.6-50 MG TAB PO SCH ×2 (09:49→20:46)
[2022-04-27] MEDS: Insulin Glargine 30 UNITS/0.3 ML VIAL SC SCH (09:49)
[2022-04-27] MEDS: Potassium Bicarbonate/Cit Ac 20 MEQ TAB PER TUBE SCH ×2 (09:49→16:42)
[2022-04-27] MEDS: Polyethylene Glycol 3350 17 GM Packet PER TUBE SCH (09:49)
[2022-04-27] MEDS: Sterile Water 10 ML VIAL FS SCH ×2 (09:50→20:47)
[2022-04-27] MEDS: Meropenem 2 GM, Admixture Fee 1 EACH in Sodium Chloride 0.9% 100 ML IVPB SCH ×2 (09:53→17:50)
[2022-04-27] MEDS: ALPRAZolam 1 MG TAB PO SCH ×2 (13:06→20:46)
[2022-04-28] MEDS: Meropenem 2 GM, Admixture Fee 1 EACH in Sodium Chloride 0.9% 100 ML IVPB SCH ×3 (00:04→18:05)
[2022-04-28] MEDS: Propofol 1,000 MG/100 ML VIAL IV PRN ×2 (00:45→05:07)
[2022-04-28] MEDS: Levothyroxine Sodium 100 MCG TAB PO SCH (05:07)
[2022-04-28 05:08] LABS: #Eosinphils 0.1 thou/uL (0.0-0.7); #Lymphocytes 1.8 thou/uL (1.20-3.40); #Monocytes 0.5 thou/uL (0.11-0.59); %Basophils 0.5 % (0.0-1.0); %Eosinophils 1.4 % (0.0-10.0); %Lymphocytes 23.8 % (21.0-51.0); %Monocytes 7.2 % (0.0-10.0); Hemoglobin 10.7 g/dL (14.0-18.0); Mean Corpuscular HGB CONC 32.6 g/dL (32.0-36.0); Mean Corpuscular Volume 85.9 fL (78.0-98.0); Mean Platelet Volume 7.1 fL (7.4-10.4); Platelet Count 466 thou/uL (130-400); RBC Distribution Width 14.1 % (11.5-14.5); Red Blood Cell (RBC) Count 3.83 mill/uL (4.70-6.10); White Blood Cell (WBC) Count 7.5 thou/uL (4.8-10.8)
[2022-04-28] MEDS: Cyproheptadine 4 MG TAB PER TUBE SCH ×3 (05:08→22:23)
[2022-04-28 05:34] LABS: ALT (SGPT) 548 U/L (8-55); AST (SGOT) 137 U/L (5-34); Albumin 3.4 g/dL (3.5-5.0); Alkaline Phosphatase 527 U/L (40-110); Anion Gap 14 mmol/L (10-20); BUN (Urea Nitrogen) 14 mg/dL (8.9-20.6); Bilirubin, Total 0.5 mg/dL (0.2-1.2); Calc. Creatinine Clearance 164 mL/min (70-130); Calcium 9.7 mg/dL (7.8-10.44); Carbon Dioxide 32 mmol/L (22-29); Chloride 96 mmol/L (98-107); Estimated GFR 120; Globulin 3.5 g/dL (2.4-3.5); Glucose 115 mg/dL (70-105); Magnesium 2.1 mg/dL (1.6-2.6); Potassium 3.8 mmol/L (3.5-5.1); Protein, Total 6.9 g/dL (6.0-8.3); Sodium 138 mmol/L (136-145)
[2022-04-28 07:31] LABS: Actual Bicarbonate (HCO3a) 34.9 mEq/L (22-28); Base Excess (BEa) 10.3 mEq/L (-2.0 to +3.0); CO2 Tension 46.6 mmHg (35.0-45.0); Calcium, Ionized (arterial) 1.22 mmol/L (1.12-1.30); Carboxyhemoglobin (COHb) 0.3 gm% (0.0-3.0); Hemoglobin (Hb) 11.6 g/dL (14.0-18.0); O2 Tension (PaO2), arterial 74.3 mmHg (80.0-100.0); Potassium - ABG Lab 3.83 mmol/L (3.70-5.30); pH, Arterial 7.49 (7.35-7.45)
[2022-04-28 07:36] LABS: Puncture Site LRA
[2022-04-28] MEDS: Potassium Bicarbonate/Cit Ac 20 MEQ TAB PER TUBE SCH ×2 (07:36→15:18)
[2022-04-28] MEDS: Gabapentin 300 MG CAP PER TUBE SCH ×4 (07:36→20:35)
[2022-04-28] MEDS: Mometasone 100 MCG/Formoterol 5 MCG 120 PUFF INHALER INH SCH (07:36)
[2022-04-28] MEDS: Pantoprazole 40 MG VIAL IVP SCH (07:38)
[2022-04-28] MEDS: ALPRAZolam 1 MG TAB PO SCH ×4 (07:38→20:35)
[2022-04-28] MEDS: Polyethylene Glycol 3350 17 GM Packet PER TUBE SCH (07:38)
[2022-04-28] MEDS: Senokot S 8.6-50 MG TAB PO SCH ×2 (07:38→20:35)
[2022-04-28] MEDS: Insulin Glargine 30 UNITS/0.3 ML VIAL SC SCH (07:40)
[2022-04-28] MEDS: Enoxaparin Sodium 100 MG/ML SYRINGE SC SCH ×2 (07:40→20:36)
[2022-04-28] MEDS: Dextrose 5% in Water 1,000 ML IV SCH ×3 (07:41→22:24)
[2022-04-28] MEDS: Sterile Water 10 ML VIAL FS SCH ×2 (07:42→22:23)
[2022-04-28] MEDS: methylPREDNISolone Sod Succ 40 MG VIAL IVP SCH (07:42)
[2022-04-28] MEDS ORDERED: Fentanyl 100 MCG/2 ML VIAL SLOW IVP PRN (16:37)
[2022-04-28] MEDS ORDERED: Furosemide 40 MG/4 ML VIAL SLOW IVP SCH (18:00)
[2022-04-28] MEDS: Metoclopramide HCl 10 MG/2 ML VIAL IVP SCH (18:06)
[2022-04-29] MEDS ORDERED: Racepinephrine 2.25% 0.5 ML NEB ONE (01:26)
[2022-04-29] MEDS: Meropenem 2 GM, Admixture Fee 1 EACH in Sodium Chloride 0.9% 100 ML IVPB SCH (01:34)
[2022-04-29] MEDS: Metoclopramide HCl 10 MG/2 ML VIAL IVP SCH ×5 (01:34→23:14)
[2022-04-29 04:05] LABS: #Eosinphils 0.2 thou/uL (0.0-0.7); #Lymphocytes 2.6 thou/uL (1.20-3.40); #Monocytes 0.8 thou/uL (0.11-0.59); #Neutrophils 5.7 thou/uL (1.40-6.50); %Basophils 0.5 % (0.0-1.0); %Eosinophils 1.7 % (0.0-10.0); %Lymphocytes 27.9 % (21.0-51.0); %Monocytes 8.4 % (0.0-10.0); %Neutrophils 61.6 % (42.0-75.0); Hemoglobin 10.7 g/dL (14.0-18.0); Mean Corpuscular HGB CONC 31.6 g/dL (32.0-36.0); Mean Corpuscular Hemoglobin 27.1 pg (27.0-31.0); Mean Corpuscular Volume 85.8 fL (78.0-98.0); Mean Platelet Volume 7.1 fL (7.4-10.4); Platelet Count 509 thou/uL (130-400); RBC Distribution Width 14.1 % (11.5-14.5); Red Blood Cell (RBC) Count 3.94 mill/uL (4.70-6.10); White Blood Cell (WBC) Count 9.3 thou/uL (4.8-10.8)
[2022-04-29 04:26] LABS: Anion Gap 13 mmol/L (10-20); BUN (Urea Nitrogen) 17 mg/dL (8.9-20.6); Calc. Creatinine Clearance 151 mL/min (70-130); Carbon Dioxide 35 mmol/L (22-29); Chloride 97 mmol/L (98-107); Estimated GFR 119; Glucose 102 mg/dL (70-105); Potassium 3.6 mmol/L (3.5-5.1); Sodium 141 mmol/L (136-145)
[2022-04-29] MEDS: Levothyroxine Sodium 100 MCG TAB PO SCH (06:00)
[2022-04-29] MEDS: Cyproheptadine 4 MG TAB PER TUBE SCH ×3 (06:00→22:04)
[2022-04-29] MEDS: Mometasone 100 MCG/Formoterol 5 MCG 120 PUFF INHALER INH SCH (07:32)
[2022-04-29] MEDS: Potassium Bicarbonate/Cit Ac 20 MEQ TAB PER TUBE SCH ×2 (08:33→18:00)
[2022-04-29] MEDS: Gabapentin 300 MG CAP PER TUBE SCH ×3 (08:34→20:43)
[2022-04-29] MEDS: ALPRAZolam 1 MG TAB PO SCH ×3 (08:34→20:43)
[2022-04-29] MEDS: Enoxaparin Sodium 100 MG/ML SYRINGE SC SCH ×2 (08:34→09:34)
[2022-04-29] MEDS: Senokot S 8.6-50 MG TAB PO SCH ×2 (08:35→20:44)
[2022-04-29] MEDS: Polyethylene Glycol 3350 17 GM Packet PER TUBE SCH (08:35)
[2022-04-29] MEDS: Pantoprazole 40 MG VIAL IVP SCH (08:35)
[2022-04-29] MEDS: methylPREDNISolone Sod Succ 40 MG VIAL IVP SCH (08:35)
[2022-04-29] MEDS: Sterile Water 10 ML VIAL FS SCH (08:36)
[2022-04-29] MEDS: Insulin Glargine 30 UNITS/0.3 ML VIAL SC SCH (08:39)
[2022-04-29] MEDS: Scopolamine 1.5 mg/72 hour Patch TD SCH (09:53)
[2022-04-29] MEDS: fentaNYL 50 mcg/hour Patch TD SCH (12:40)
[2022-04-29] MEDS: Dextrose 5% in Water 1,000 ML IV SCH ×2 (12:42→18:59)
[2022-04-29] MEDS ORDERED: Potassium Bicarbonate/Cit Ac 20 MEQ TAB PO SCH (18:30)
[2022-04-29] MEDS ORDERED: Potassium Chloride 20 MEQ TAB PO SCH (19:00)
[2022-04-30 03:37] LABS: #Basophils 0.1 thou/uL (0.0-0.2); #Eosinphils 0.2 thou/uL (0.0-0.7); #Lymphocytes 2.3 thou/uL (1.20-3.40); #Monocytes 0.7 thou/uL (0.11-0.59); #Neutrophils 4.1 thou/uL (1.40-6.50); %Basophils 1.3 % (0.0-1.0); %Eosinophils 2.6 % (0.0-10.0); %Lymphocytes 31.1 % (21.0-51.0); %Monocytes 9.3 % (0.0-10.0); %Neutrophils 55.8 % (42.0-75.0); Hemoglobin 10.8 g/dL (14.0-18.0); Mean Corpuscular HGB CONC 31.4 g/dL (32.0-36.0); Mean Corpuscular Hemoglobin 26.7 pg (27.0-31.0); Mean Platelet Volume 6.9 fL (7.4-10.4); Platelet Count 431 thou/uL (130-400); RBC Distribution Width 13.9 % (11.5-14.5); Red Blood Cell (RBC) Count 4.06 mill/uL (4.70-6.10); White Blood Cell (WBC) Count 7.3 thou/uL (4.8-10.8)
[2022-04-30 04:02] LABS: Anion Gap 14 mmol/L (10-20); BUN (Urea Nitrogen) 18 mg/dL (8.9-20.6); Calc. Creatinine Clearance 146 mL/min (70-130); Calcium 9.7 mg/dL (7.8-10.44); Carbon Dioxide 29 mmol/L (22-29); Chloride 98 mmol/L (98-107); Estimated GFR 118; Glucose 109 mg/dL (70-105); Potassium 3.7 mmol/L (3.5-5.1); Sodium 137 mmol/L (136-145)
[2022-04-30] MEDS: Dextrose 5% in Water 1,000 ML IV SCH (04:56)
[2022-04-30] MEDS: Cyproheptadine 4 MG TAB PER TUBE SCH ×3 (04:56→20:58)
[2022-04-30] MEDS: Levothyroxine Sodium 100 MCG TAB PO SCH (04:56)
[2022-04-30] MEDS: Metoclopramide HCl 10 MG/2 ML VIAL IVP SCH ×2 (04:57→14:06)
[2022-04-30] MEDS: Mometasone 100 MCG/Formoterol 5 MCG 120 PUFF INHALER INH SCH (07:28)
[2022-04-30] MEDS ORDERED: Potassium Chloride 20 MEQ TAB PO SCH (08:00)
[2022-04-30] MEDS ORDERED: Potassium Bicarbonate/Cit Ac 20 MEQ TAB PO SCH (08:00)
[2022-04-30] MEDS: ALPRAZolam 1 MG TAB PO SCH ×3 (09:55→20:57)
[2022-04-30] MEDS: Potassium Chloride 20 MEQ TAB PO SCH ×2 (09:55→18:34)
[2022-04-30] MEDS: Apixaban 5 MG TAB PO SCH ×2 (09:55→20:57)
[2022-04-30] MEDS: Gabapentin 300 MG CAP PER TUBE SCH ×3 (09:56→20:57)
[2022-04-30] MEDS: methylPREDNISolone Sod Succ 40 MG VIAL IVP SCH (09:56)
[2022-04-30] MEDS: Polyethylene Glycol 3350 17 GM Packet PER TUBE SCH (09:56)
[2022-04-30] MEDS: Senokot S 8.6-50 MG TAB PO SCH ×2 (09:56→20:58)
[2022-04-30] MEDS: Insulin Glargine 30 UNITS/0.3 ML VIAL SC SCH (10:46)
[2022-05-01 04:29] LABS: #Eosinphils 0.1 thou/uL (0.0-0.7); #Lymphocytes 2.4 thou/uL (1.20-3.40); #Monocytes 0.6 thou/uL (0.11-0.59); #Neutrophils 3.8 thou/uL (1.40-6.50); %Basophils 0.6 % (0.0-1.0); %Lymphocytes 35.1 % (21.0-51.0); %Monocytes 8.1 % (0.0-10.0); %Neutrophils 54.2 % (42.0-75.0); Hemoglobin 11.4 g/dL (14.0-18.0); Mean Corpuscular HGB CONC 32.5 g/dL (32.0-36.0); Mean Corpuscular Hemoglobin 27.7 pg (27.0-31.0); Mean Corpuscular Volume 85.1 fL (78.0-98.0); Mean Platelet Volume 7.2 fL (7.4-10.4); Platelet Count 398 thou/uL (130-400); RBC Distribution Width 14.1 % (11.5-14.5); Red Blood Cell (RBC) Count 4.11 mill/uL (4.70-6.10); White Blood Cell (WBC) Count 6.9 thou/uL (4.8-10.8)
[2022-05-01 04:46] LABS: Anion Gap 14 mmol/L (10-20); BUN (Urea Nitrogen) 20 mg/dL (8.9-20.6); Calc. Creatinine Clearance 139 mL/min (70-130); Calcium 9.9 mg/dL (7.8-10.44); Carbon Dioxide 26 mmol/L (22-29); Chloride 102 mmol/L (98-107); Estimated GFR 116; Glucose 89 mg/dL (70-105); Potassium 4.2 mmol/L (3.5-5.1); Sodium 138 mmol/L (136-145)
[2022-05-01] MEDS: Cyproheptadine 4 MG TAB PER TUBE SCH ×3 (05:01→21:49)
[2022-05-01] MEDS: Levothyroxine Sodium 100 MCG TAB PO SCH (05:01)
[2022-05-01] MEDS: Acetaminophen 325 MG/10.15 ML UDCUP PO PRN (06:49)
[2022-05-01] MEDS: Mometasone 100 MCG/Formoterol 5 MCG 120 PUFF INHALER INH SCH (07:07)
[2022-05-01] MEDS: Apixaban 5 MG TAB PO SCH ×2 (08:42→21:47)
[2022-05-01] MEDS: Potassium Chloride 20 MEQ TAB PO SCH ×2 (08:43→15:40)
[2022-05-01] MEDS: Gabapentin 300 MG CAP PER TUBE SCH ×2 (08:43→21:47)
[2022-05-01] MEDS: ALPRAZolam 1 MG TAB PO SCH ×3 (08:44→21:47)
[2022-05-01] MEDS: methylPREDNISolone Sod Succ 40 MG VIAL IVP SCH (08:46)
[2022-05-01] MEDS ORDERED: Loperamide HCl 2 MG CAP PO PRN ×2 (09:44→10:43)
[2022-05-01] MEDS ORDERED: ALPRAZolam 1 MG TAB PO SCH (09:45)
[2022-05-01] MEDS: Senokot S 8.6-50 MG TAB PO SCH ×2 (11:25→21:49)
[2022-05-01] MEDS: Polyethylene Glycol 3350 17 GM Packet PER TUBE SCH (11:25)
[2022-05-01] MEDS ORDERED: Gabapentin 300 MG CAP PER TUBE SCH (21:00)
[2022-05-02] MEDS: ALPRAZolam 1 MG TAB PO SCH ×4 (03:23→20:28)
[2022-05-02 03:37] LABS: #Basophils 0.1 thou/uL (0.0-0.2); #Eosinphils 0.2 thou/uL (0.0-0.7); #Lymphocytes 2.7 thou/uL (1.20-3.40); #Monocytes 0.6 thou/uL (0.11-0.59); #Neutrophils 4.8 thou/uL (1.40-6.50); %Basophils 0.8 % (0.0-1.0); %Eosinophils 2.2 % (0.0-10.0); %Monocytes 7.1 % (0.0-10.0); Hemoglobin 11.5 g/dL (14.0-18.0); Mean Corpuscular HGB CONC 31.9 g/dL (32.0-36.0); Mean Corpuscular Hemoglobin 27.1 pg (27.0-31.0); Mean Platelet Volume 7.6 fL (7.4-10.4); Platelet Count 366 thou/uL (130-400); RBC Distribution Width 14.5 % (11.5-14.5); Red Blood Cell (RBC) Count 4.24 mill/uL (4.70-6.10); White Blood Cell (WBC) Count 8.3 thou/uL (4.8-10.8)
[2022-05-02 04:03] LABS: Anion Gap 14 mmol/L (10-20); BUN (Urea Nitrogen) 19 mg/dL (8.9-20.6); Calc. Creatinine Clearance 142 mL/min (70-130); Calcium 9.9 mg/dL (7.8-10.44); Carbon Dioxide 23 mmol/L (22-29); Chloride 105 mmol/L (98-107); Estimated GFR 118; Glucose 88 mg/dL (70-105); Sodium 138 mmol/L (136-145)
[2022-05-02] MEDS: Levothyroxine Sodium 100 MCG TAB PO SCH (06:16)
[2022-05-02] MEDS: Cyproheptadine 4 MG TAB PER TUBE SCH ×3 (06:17→21:58)
[2022-05-02] MEDS: Mometasone 100 MCG/Formoterol 5 MCG 120 PUFF INHALER INH SCH (06:51)
[2022-05-02] MEDS: Gabapentin 300 MG CAP PER TUBE SCH ×2 (09:12→20:28)
[2022-05-02] MEDS: Potassium Chloride 20 MEQ TAB PO SCH ×2 (09:13→17:55)
[2022-05-02] MEDS: Apixaban 5 MG TAB PO SCH ×2 (09:13→20:28)
[2022-05-02] MEDS: Senokot S 8.6-50 MG TAB PO SCH ×2 (09:14→20:28)
[2022-05-02] MEDS: Polyethylene Glycol 3350 17 GM Packet PER TUBE SCH (09:14)
[2022-05-02] MEDS: Scopolamine 1.5 mg/72 hour Patch TD SCH (09:16)
[2022-05-02] MEDS: methylPREDNISolone Sod Succ 40 MG VIAL IVP SCH (09:18)
[2022-05-02] MEDS ORDERED: predniSONE 20 MG TAB PO SCH ×2 (09:27→09:45)
[2022-05-02] MEDS ORDERED: Saccharomyces boulardii 250 MG CAP PO SCH ×2 (09:31→09:45)
[2022-05-03] MEDS: ALPRAZolam 1 MG TAB PO SCH ×4 (02:17→20:42)
[2022-05-03 05:34] LABS: #Basophils 0.1 thou/uL (0.0-0.2); #Eosinphils 0.1 thou/uL (0.0-0.7); #Lymphocytes 1.7 thou/uL (1.20-3.40); #Monocytes 0.6 thou/uL (0.11-0.59); #Neutrophils 5.2 thou/uL (1.40-6.50); %Basophils 0.7 % (0.0-1.0); %Eosinophils 1.5 % (0.0-10.0); %Lymphocytes 22.2 % (21.0-51.0); %Monocytes 8.1 % (0.0-10.0); %Neutrophils 67.5 % (42.0-75.0); Hemoglobin 11.4 g/dL (14.0-18.0); Mean Corpuscular Hemoglobin 27.3 pg (27.0-31.0); Mean Corpuscular Volume 85.5 fL (78.0-98.0); Mean Platelet Volume 7.7 fL (7.4-10.4); Platelet Count 310 thou/uL (130-400); RBC Distribution Width 14.9 % (11.5-14.5); Red Blood Cell (RBC) Count 4.18 mill/uL (4.70-6.10); White Blood Cell (WBC) Count 7.7 thou/uL (4.8-10.8)
[2022-05-03 06:08] LABS: Anion Gap 15 mmol/L (10-20); BUN (Urea Nitrogen) 17 mg/dL (8.9-20.6); Calc. Creatinine Clearance 141 mL/min (70-130); Calcium 9.8 mg/dL (7.8-10.44); Carbon Dioxide 23 mmol/L (22-29); Chloride 103 mmol/L (98-107); Estimated GFR 117; Glucose 88 mg/dL (70-105); Potassium 4.2 mmol/L (3.5-5.1); Sodium 137 mmol/L (136-145)
[2022-05-03] MEDS: Cyproheptadine 4 MG TAB PER TUBE SCH ×2 (06:20→20:43)
[2022-05-03] MEDS: Levothyroxine Sodium 100 MCG TAB PO SCH (06:20)
[2022-05-03] MEDS: Mometasone 100 MCG/Formoterol 5 MCG 120 PUFF INHALER INH SCH (07:40)
[2022-05-03] MEDS: Gabapentin 300 MG CAP PER TUBE SCH ×2 (09:01→20:42)
[2022-05-03] MEDS: Potassium Chloride 20 MEQ TAB PO SCH ×2 (09:02→17:00)
[2022-05-03] MEDS: Saccharomyces boulardii 250 MG CAP PO SCH (09:02)
[2022-05-03] MEDS: predniSONE 20 MG TAB PO SCH (09:02)
[2022-05-03] MEDS: Senokot S 8.6-50 MG TAB PO SCH ×2 (09:03→20:46)
[2022-05-03] MEDS: Apixaban 5 MG TAB PO SCH ×2 (09:03→20:43)
[2022-05-03] MEDS: Polyethylene Glycol 3350 17 GM Packet PER TUBE SCH (09:03)
[2022-05-04] MEDS: ALPRAZolam 1 MG TAB PO SCH ×4 (01:35→21:55)
[2022-05-04 04:06] LABS: #Basophils 0.1 thou/uL (0.0-0.2); #Eosinphils 0.1 thou/uL (0.0-0.7); #Lymphocytes 1.7 thou/uL (1.20-3.40); #Monocytes 0.6 thou/uL (0.11-0.59); #Neutrophils 3.7 thou/uL (1.40-6.50); %Basophils 1.2 % (0.0-1.0); %Eosinophils 0.9 % (0.0-10.0); %Monocytes 10.1 % (0.0-10.0); %Neutrophils 60.7 % (42.0-75.0); Hemoglobin 10.9 g/dL (14.0-18.0); Mean Corpuscular HGB CONC 32.3 g/dL (32.0-36.0); Mean Corpuscular Hemoglobin 27.6 pg (27.0-31.0); Mean Corpuscular Volume 85.7 fL (78.0-98.0); Mean Platelet Volume 8.7 fL (7.4-10.4); Platelet Count 238 thou/uL (130-400); RBC Distribution Width 14.7 % (11.5-14.5); Red Blood Cell (RBC) Count 3.96 mill/uL (4.70-6.10); White Blood Cell (WBC) Count 6.1 thou/uL (4.8-10.8)
[2022-05-04 04:24] LABS: Anion Gap 15 mmol/L (10-20); BUN (Urea Nitrogen) 15 mg/dL (8.9-20.6); Calc. Creatinine Clearance 154 mL/min (70-130); Calcium 9.4 mg/dL (7.8-10.44); Carbon Dioxide 21 mmol/L (22-29); Chloride 104 mmol/L (98-107); Estimated GFR 120; Glucose 93 mg/dL (70-105); Potassium 4.1 mmol/L (3.5-5.1); Sodium 136 mmol/L (136-145)
[2022-05-04] MEDS: Levothyroxine Sodium 100 MCG TAB PO SCH (05:37)
[2022-05-04] MEDS: Mometasone 100 MCG/Formoterol 5 MCG 120 PUFF INHALER INH SCH (07:19)
[2022-05-04] MEDS: Apixaban 5 MG TAB PO SCH ×2 (09:00→21:56)
[2022-05-04] MEDS: predniSONE 20 MG TAB PO SCH (09:00)
[2022-05-04] MEDS: Potassium Chloride 20 MEQ TAB PO SCH ×2 (09:00→16:56)
[2022-05-04] MEDS: Cyproheptadine 4 MG TAB PER TUBE SCH ×2 (09:01→21:56)
[2022-05-04] MEDS: Gabapentin 300 MG CAP PER TUBE SCH ×2 (09:01→21:55)
[2022-05-04] MEDS: Polyethylene Glycol 3350 17 GM Packet PER TUBE SCH (09:01)
[2022-05-04] MEDS: Senokot S 8.6-50 MG TAB PO SCH ×2 (09:02→21:55)
[2022-05-04] MEDS: Saccharomyces boulardii 250 MG CAP PO SCH (09:02)
[2022-05-04] MEDS: Acetaminophen 650 MG/20.3 ML UDCUP PO PRN (21:54)
[2022-05-05] MEDS: ALPRAZolam 1 MG TAB PO SCH ×4 (02:43→19:59)
[2022-05-05 05:27] LABS: #Eosinphils 0.1 thou/uL (0.0-0.7); #Lymphocytes 1.8 thou/uL (1.20-3.40); #Monocytes 0.8 thou/uL (0.11-0.59); #Neutrophils 5.7 thou/uL (1.40-6.50); %Basophils 0.3 % (0.0-1.0); %Monocytes 9.7 % (0.0-10.0); Hemoglobin 11.4 g/dL (14.0-18.0); Mean Corpuscular HGB CONC 32.4 g/dL (32.0-36.0); Mean Corpuscular Hemoglobin 27.7 pg (27.0-31.0); Mean Corpuscular Volume 85.6 fL (78.0-98.0); Mean Platelet Volume 7.9 fL (7.4-10.4); Platelet Count 248 thou/uL (130-400); RBC Distribution Width 14.5 % (11.5-14.5); Red Blood Cell (RBC) Count 4.12 mill/uL (4.70-6.10); White Blood Cell (WBC) Count 8.4 thou/uL (4.8-10.8)
[2022-05-05] MEDS: Mometasone 100 MCG/Formoterol 5 MCG 120 PUFF INHALER INH SCH (05:41)
[2022-05-05] MEDS: Levothyroxine Sodium 100 MCG TAB PO SCH (05:44)
[2022-05-05] MEDS: Acetaminophen 650 MG/20.3 ML UDCUP PO PRN ×2 (05:44→20:22)
[2022-05-05 05:49] LABS: Anion Gap 13 mmol/L (10-20); BUN (Urea Nitrogen) 15 mg/dL (8.9-20.6); Calc. Creatinine Clearance 148 mL/min (70-130); Calcium 9.8 mg/dL (7.8-10.44); Carbon Dioxide 24 mmol/L (22-29); Chloride 104 mmol/L (98-107); Estimated GFR 117; Glucose 89 mg/dL (70-105); Sodium 137 mmol/L (136-145)
[2022-05-05] MEDS: Cyproheptadine 4 MG TAB PER TUBE SCH (08:17)
[2022-05-05] MEDS: Potassium Chloride 20 MEQ TAB PO SCH ×3 (08:17→17:12)
[2022-05-05] MEDS: Gabapentin 300 MG CAP PER TUBE SCH ×2 (08:17→20:20)
[2022-05-05] MEDS: Apixaban 5 MG TAB PO SCH ×2 (08:17→20:21)
[2022-05-05] MEDS: predniSONE 20 MG TAB PO SCH (08:18)
[2022-05-05] MEDS: Saccharomyces boulardii 250 MG CAP PO SCH (08:18)
[2022-05-05] MEDS: Senokot S 8.6-50 MG TAB PO SCH ×2 (08:19→20:24)
[2022-05-05] MEDS: Scopolamine 1.5 mg/72 hour Patch TD SCH (08:19)
[2022-05-05] MEDS: Polyethylene Glycol 3350 17 GM Packet PER TUBE SCH (08:19)
[2022-05-05 12:42] VITALS: BMI 26.4
[2022-05-06] MEDS: Acetaminophen 650 MG/20.3 ML UDCUP PO PRN (02:39)
[2022-05-06] MEDS: ALPRAZolam 1 MG TAB PO SCH ×2 (02:39→09:18)
[2022-05-06 05:37] LABS: Anion Gap 14 mmol/L (10-20); BUN (Urea Nitrogen) 16 mg/dL (8.9-20.6); Calc. Creatinine Clearance 145 mL/min (70-130); Calcium 9.3 mg/dL (7.8-10.44); Carbon Dioxide 22 mmol/L (22-29); Chloride 104 mmol/L (98-107); Estimated GFR 117; Glucose 87 mg/dL (70-105); Magnesium 1.7 mg/dL (1.6-2.6); Potassium 3.7 mmol/L (3.5-5.1); Sodium 136 mmol/L (136-145)
[2022-05-06 05:55] LABS: #Eosinphils 0.1 thou/uL (0.0-0.7); #Lymphocytes 1.7 thou/uL (1.20-3.40); #Monocytes 0.8 thou/uL (0.11-0.59); #Neutrophils 6.1 thou/uL (1.40-6.50); %Basophils 0.4 % (0.0-1.0); %Eosinophils 0.7 % (0.0-10.0); %Lymphocytes 19.7 % (21.0-51.0); %Monocytes 9.2 % (0.0-10.0)
[2022-05-06 05:57] LABS: Hemoglobin 10.5 g/dL (14.0-18.0); Mean Corpuscular HGB CONC 32.3 g/dL (32.0-36.0); Mean Corpuscular Hemoglobin 27.5 pg (27.0-31.0); Mean Platelet Volume 9.3 fL (7.4-10.4); Platelet Count 233 thou/uL (130-400); RBC Distribution Width 18.4 % (11.5-14.5); Red Blood Cell (RBC) Count 3.83 mill/uL (4.70-6.10); White Blood Cell (WBC) Count 8.8 thou/uL (4.8-10.8)
[2022-05-06] MEDS: Levothyroxine Sodium 100 MCG TAB PO SCH (06:07)
[2022-05-06] MEDS: Mometasone 100 MCG/Formoterol 5 MCG 120 PUFF INHALER INH SCH (06:57)
[2022-05-06] MEDS ORDERED: Magnesium 2 GM/50 ML(in water) 2 GM in Premix Bag 1 BAG IVPB SCH (08:00)
[2022-05-06] MEDS ORDERED: ALPRAZolam 1 MG TAB PO SCH (09:00)
[2022-05-06] MEDS: Potassium Chloride 20 MEQ TAB PO SCH (09:15)
[2022-05-06] MEDS: predniSONE 20 MG TAB PO SCH (09:15)
[2022-05-06] MEDS: Gabapentin 300 MG CAP PER TUBE SCH (09:16)
[2022-05-06] MEDS: Apixaban 5 MG TAB PO SCH (09:16)
[2022-05-06] MEDS: Polyethylene Glycol 3350 17 GM Packet PER TUBE SCH (09:17)
[2022-05-06] MEDS: Senokot S 8.6-50 MG TAB PO SCH (09:17)
[2022-05-06] MEDS: Saccharomyces boulardii 250 MG CAP PO SCH (09:17)
[2022-05-06 11:47] VITALS: BP 123/79; TEMP 98.5
== END 2022-05-06 12:08 | disposition home or self-care (01) | DRG 917 ==
LOC: SUATTDRO 13:23 → ERS 13:23 → OBSVTOIN 17:44 → 2SW 17:44 → CCU 20:13 → IMCU/EMU 05-01 11:08 → 2SW 05-04 15:18
PROVIDERS: ADMIT Internal Medicine; ATTEND Internal Medicine
PROC: 3E033XZ Introduction of Vasopressor into Peripheral Vein, Percutaneous Approach (ICD-10-PCS; principal; 2022-04-03)
PROC: 03HY32Z Insertion of Monitoring Device into Upper Artery, Percutaneous Approach (ICD-10-PCS; 2022-04-04)
PROC: 5A1955Z Respiratory Ventilation, Greater than 96 Consecutive Hours (ICD-10-PCS; 2022-04-05)
PROC: 0BH17EZ Insertion of Endotracheal Airway into Trachea, Via Natural or Artificial Opening (ICD-10-PCS; 2022-04-05)
PROC: 0D9670Z Drainage of Stomach with Drainage Device, Via Natural or Artificial Opening (ICD-10-PCS; 2022-04-05)
PROC: 0B9F8ZX Drainage of Right Lower Lung Lobe, Via Natural or Artificial Opening Endoscopic, Diagnostic (ICD-10-PCS; 2022-04-15)
PROC: 0B9D8ZX Drainage of Right Middle Lung Lobe, Via Natural or Artificial Opening Endoscopic, Diagnostic (ICD-10-PCS; 2022-04-15)
PROC: 0B21XEZ Change Endotracheal Airway in Trachea, External Approach (ICD-10-PCS; 2022-04-15)
PROC: 06HY33Z Insertion of Infusion Device into Lower Vein, Percutaneous Approach (ICD-10-PCS; 2022-04-15)
DX: T46.1X2A Poisoning by calcium-channel blockers, intentional self-harm, initial encounter (principal); A41.89 Other specified sepsis; G93.41 Metabolic encephalopathy; R65.21 Severe sepsis with septic shock; J80 Acute respiratory distress syndrome; J69.0 Pneumonitis due to inhalation of food and vomit; J15.1 Pneumonia due to Pseudomonas; T78.2XXA Anaphylactic shock, unspecified, initial encounter; F11.20 Opioid dependence, uncomplicated; K50.90 Crohn's disease, unspecified, without complications; E22.2 Syndrome of inappropriate secretion of antidiuretic hormone; I48.92 Unspecified atrial flutter; G72.81 Critical illness myopathy; J44.0 Chronic obstructive pulmonary disease with (acute) lower respiratory infection; F19.139 Other psychoactive substance abuse with withdrawal, unspecified; N17.9 Acute kidney failure, unspecified; F15.13 Other stimulant abuse with withdrawal; F13.20 Sedative, hypnotic or anxiolytic dependence, uncomplicated; E87.3 Alkalosis; Z16.19 Resistance to other specified beta lactam antibiotics; I48.0 Paroxysmal atrial fibrillation; T44.7X2A Poisoning by beta-adrenoreceptor antagonists, intentional self-harm, initial encounter; I95.2 Hypotension due to drugs; Z20.822 Contact with and (suspected) exposure to COVID-19; F41.9 Anxiety disorder, unspecified; F32.A Depression, unspecified; G89.4 Chronic pain syndrome; E03.9 Hypothyroidism, unspecified; R00.1 Bradycardia, unspecified; G43.909 Migraine, unspecified, not intractable, without status migrainosus; E83.42 Hypomagnesemia; E11.65 Type 2 diabetes mellitus with hyperglycemia; F12.13 Cannabis abuse with withdrawal; I10 Essential (primary) hypertension; T43.225A Adverse effect of selective serotonin reuptake inhibitors, initial encounter; E87.5 Hyperkalemia; G25.89 Other specified extrapyramidal and movement disorders; E11.649 Type 2 diabetes mellitus with hypoglycemia without coma; E87.6 Hypokalemia; R79.89 Other specified abnormal findings of blood chemistry; R45.1 Restlessness and agitation; Z88.8 Allergy status to other drugs, medicaments and biological substances; Z79.51 Long term (current) use of inhaled steroids; Z79.899 Other long term (current) drug therapy; Z90.49 Acquired absence of other specified parts of digestive tract; Z98.890 Other specified postprocedural states; Z79.890 Hormone replacement therapy; Z88.0 Allergy status to penicillin; Z87.19 Personal history of other diseases of the digestive system; Z76.5 Malingerer [conscious simulation]; Z79.82 Long term (current) use of aspirin; Z78.1 Physical restraint status
CPT/HCPCS: 31624; 36415; 36416; 36600; 71045; 71275; 74018; 76705; 80048; 80053; 80074; 80202; 80306; 81001; 82085; 82306; 82533; 82550; 82805; 83036; 83605; 83690; 83735; 83880; 83930; 83935; 84100; 84145; 84478; 84484; 85025; 85060; 86038; 86140; 86225; 87040; 87070; 87076; 87077; 87086; 87149; 87186; 87205; 87811; 88112; 88305; 89051; 93005; 93010; 93306; 94002; 94003; 94640; 96374; C9113; G0378; J0171; J0360; J0610; J0692; J1120; J1265; J1610; J1644; J1650; J1720; J1815; J1940; J2185; J2250; J2270; J2405; J2704; J2765; J2920; J2930; J3010; J3030; J3370; J3475; J3480; J3486; J3490; J7030; J7050; J7070; J7512; J7620; J7999; P9047; Q9967; U0002; U0003; U0005

== ENCOUNTER → 2022-05-25 | Emergency (ER) | payer OTHER, MEDICAID | LOC: ERS 03:22 | DX: Z53.21 Procedure and treatment not carried out due to patient leaving prior to being seen by health care provider (principal) ==

== ENCOUNTER 2022-05-29 20:44 | Inpatient (IN) | payer OTHER, MEDICAID ==
[2022-05-29 21:47] LABS: #Eosinphils 0.2 thou/uL (0.0-0.7); #Lymphocytes 1.3 thou/uL (1.20-3.40); #Monocytes 1.1 thou/uL (0.11-0.59); #Neutrophils 6.2 thou/uL (1.40-6.50); %Basophils 0.3 % (0.0-1.0); %Eosinophils 2.5 % (0.0-10.0); %Lymphocytes 15.2 % (21.0-51.0); %Monocytes 12.1 % (0.0-10.0); %Neutrophils 69.9 % (42.0-75.0); Hemoglobin 10.2 g/dL (14.0-18.0); Mean Corpuscular HGB CONC 31.9 g/dL (32.0-36.0); Mean Corpuscular Hemoglobin 25.5 pg (27.0-31.0); Mean Platelet Volume 8.6 fL (7.4-10.4); Platelet Count 292 thou/uL (130-400); RBC Distribution Width 14.2 % (11.5-14.5); Red Blood Cell (RBC) Count 3.99 mill/uL (4.70-6.10); White Blood Cell (WBC) Count 8.8 thou/uL (4.8-10.8)
[2022-05-29 22:01] LABS: ALT (SGPT) 41 U/L (8-55); AST (SGOT) 42 U/L (5-34); Albumin 3.8 g/dL (3.5-5.0); Alkaline Phosphatase 190 U/L (40-110); Anion Gap 14 mmol/L (10-20); BUN (Urea Nitrogen) 14 mg/dL (8.9-20.6); Bilirubin, Total 0.4 mg/dL (0.2-1.2); Calc. Creatinine Clearance 0 mL/min (70-130); Carbon Dioxide 25 mmol/L (22-29); Chloride 104 mmol/L (98-107); Estimated GFR 109; Globulin 2.6 g/dL (2.4-3.5); Glucose 103 mg/dL (70-105); Potassium 4.1 mmol/L (3.5-5.1); Protein, Total 6.4 g/dL (6.0-8.3); Sodium 139 mmol/L (136-145)
[2022-05-29] MEDS ORDERED: cefTRIAXone\\ROCEPHIN 1 GM VIAL ONE (23:08)
[2022-05-30 00:08] LABS: SARS-CoV-2 NAA Rapid Test Not Detected (NotDetected)
[2022-05-30] MEDS ORDERED: Senokot S 8.6-50 MG TAB PO PRN (00:47)
[2022-05-30] MEDS ORDERED: Acetaminophen 325 MG TAB PO PRN (00:47)
[2022-05-30] MEDS ORDERED: Bisacodyl 10 MG SUPP PR PRN (00:47)
[2022-05-30] MEDS ORDERED: Bisacodyl 5 MG TAB PO PRN (00:47)
[2022-05-30] MEDS ORDERED: Ondansetron ODT 4 MG TAB PO PRN (00:47)
[2022-05-30 00:55] LABS: Acetaminophen Less than 10.0 mcg/mL (10.0-30.0); Alcohol Less than 10 mg/dL (Less than 10); Salicylate Less than 8.0 mg/dL (15.0-30.0)
[2022-05-30] MEDS ORDERED: Meropenem 1 GM in Sodium Chloride 0.9% 100 ML IVPB SCH (02:00)
[2022-05-30] MEDS ORDERED: Acetaminophen 325 MG TAB ONE (02:26)
[2022-05-30] MEDS ORDERED: Electrolyte Replacement Protocol 1 EACH FS SCH (03:00)
[2022-05-30] MEDS ORDERED: Morphine 4 MG/ML VIAL ONE (03:51)
[2022-05-30] MEDS: Morphine 4 MG/ML VIAL SLOW IVP PRN ×2 (03:55→10:00)
[2022-05-30] MEDS ORDERED: Ondansetron PF 4 MG/2 ML Vial ONE (05:26)
[2022-05-30] MEDS: Ondansetron PF 4 MG/2 ML Vial IVP PRN ×3 (05:33→18:21)
[2022-05-30] MEDS ORDERED: SUMAtriptan Succinate 6 MG/0.5 ML VIAL SC PRN (05:47)
[2022-05-30] MEDS ORDERED: SUMAtriptan Succinate 6 MG/0.5 ML VIAL ONE (05:54)
[2022-05-30 07:25] LABS: #Eosinphils 0.3 thou/uL (0.0-0.7); #Lymphocytes 1.2 thou/uL (1.20-3.40); #Monocytes 0.8 thou/uL (0.11-0.59); #Neutrophils 6.7 thou/uL (1.40-6.50); %Basophils 0.2 % (0.0-1.0); %Eosinophils 2.9 % (0.0-10.0); %Lymphocytes 13.6 % (21.0-51.0); %Monocytes 9.2 % (0.0-10.0); %Neutrophils 74.1 % (42.0-75.0); Hemoglobin 11.2 g/dL (14.0-18.0); Mean Corpuscular HGB CONC 31.5 g/dL (32.0-36.0); Mean Corpuscular Hemoglobin 25.7 pg (27.0-31.0); Mean Corpuscular Volume 81.6 fL (78.0-98.0); Mean Platelet Volume 8.5 fL (7.4-10.4); Platelet Count 282 thou/uL (130-400); RBC Distribution Width 14.2 % (11.5-14.5); Red Blood Cell (RBC) Count 4.36 mill/uL (4.70-6.10)
[2022-05-30 07:57] VITALS: BP 151/90
[2022-05-30 07:58] LABS: Actual Bicarbonate (HCO3a) 27.2 mEq/L (22-28); Analyzer IN Cardio ER; Base Excess (BEa) 1.5 mEq/L (-2.0 to +3.0); CO2 Tension 47.7 mmHg (35.0-45.0); Calcium, Ionized (arterial) 1.14 mmol/L (1.12-1.30); Carboxyhemoglobin (COHb) 0.4 gm% (0.0-3.0); Hemoglobin (Hb) 11.1 g/dL (14.0-18.0); Potassium - ABG Lab 3.84 mmol/L (3.70-5.30); pH, Arterial 7.37 (7.35-7.45)
[2022-05-30 08:03] LABS: Ferritin 82.45 ng/mL (22-322)
[2022-05-30] MEDS ORDERED: Albuterol Sulfate 2.5 mg/3 ml Neb NEB PRN (08:09)
[2022-05-30 08:12] LABS: ALT (SGPT) 44 U/L (8-55); AST (SGOT) 49 U/L (5-34); Alkaline Phosphatase 214 U/L (40-110); Anion Gap 12 mmol/L (10-20); BUN (Urea Nitrogen) 12 mg/dL (8.9-20.6); Calc. Creatinine Clearance 0 mL/min (70-130); Calcium 9.5 mg/dL (7.8-10.44); Carbon Dioxide 30 mmol/L (22-29); Chloride 101 mmol/L (98-107); Estimated GFR 115; Globulin 3.3 g/dL (2.4-3.5); Glucose 86 mg/dL (70-105); Iron 54 ug/dL (65-175); Iron Binding Capacity, Total 428 mcg/dL (261-462); Magnesium 1.8 mg/dL (1.6-2.6); Protein, Total 7.3 g/dL (6.0-8.3); Sodium 139 mmol/L (136-145)
[2022-05-30] MEDS: Apixaban 5 MG TAB PO SCH ×2 (08:37→20:07)
[2022-05-30] MEDS ORDERED: Magnesium 2 GM/50 ML(in water) 2 GM in Premix Bag 1 BAG IVPB SCH (09:00)
[2022-05-30 09:41] VITALS: BMI 24.7
[2022-05-30] MEDS: Benzonatate 100 MG CAP PO SCH ×3 (09:42→20:07)
[2022-05-30 09:48] LABS: O2 Tension (PaO2), arterial 42.5 mmHg (80.0-100.0); Puncture Site LRA
[2022-05-30] MEDS ORDERED: Morphine 4 MG/ML VIAL SLOW IVP PRN ×2 (09:48→11:42)
[2022-05-30 09:50] LABS: ALV-art Gradient 111.775 mmHg (0-20)
[2022-05-30] MEDS: Meropenem 1 GM in Sodium Chloride 0.9% 100 ML IVPB SCH ×2 (10:09→17:48)
[2022-05-30] MEDS ORDERED: Scopolamine 1.5 mg/72 hour Patch TD SCH (12:00)
[2022-05-30] MEDS: methylPREDNISolone Sod Succ/PF 125 MG/2 ML VIAL IVP SCH ×2 (12:25→17:48)
[2022-05-30] MEDS ORDERED: Furosemide 20 MG/2 ML VIAL SLOW IVP SCH (13:15)
[2022-05-30 15:18] LABS: Amphetamine Not Detected (NotDetected); Barbiturates Screen Not Detected (NotDetected); Benzodiazepine Screen Detected (NotDetected); Cocaine Metabolite Screen Not Detected (NotDetected); Methadone Not Detected (NotDetected); Methamphetamine Not Detected (NotDetected); Opiate Screen Detected (NotDetected); Oxycodone Screen Detected (NotDetected); Phencyclidine (PCP) Not Detected (NotDetected); THC/Cannabinoid Screen Not Detected (NotDetected); Tricyclic Screen Not Detected (NotDetected)
[2022-05-30] MEDS: Acetaminophen/Codeine 30-300mg Tablet PO PRN (20:10)
[2022-05-31] MEDS: methylPREDNISolone Sod Succ/PF 125 MG/2 ML VIAL IVP SCH ×5 (01:21→23:42)
[2022-05-31] MEDS: Ondansetron PF 4 MG/2 ML Vial IVP PRN ×2 (01:26→11:37)
[2022-05-31 03:57] LABS: #Lymphocytes 0.8 thou/uL (1.20-3.40); #Monocytes 0.2 thou/uL (0.11-0.59); #Neutrophils 5.1 thou/uL (1.40-6.50); %Lymphocytes 12.6 % (21.0-51.0); %Monocytes 2.7 % (0.0-10.0); %Neutrophils 84.6 % (42.0-75.0); Hemoglobin 10.5 g/dL (14.0-18.0); Mean Corpuscular HGB CONC 31.2 g/dL (32.0-36.0); Mean Corpuscular Hemoglobin 25.2 pg (27.0-31.0); Mean Corpuscular Volume 80.9 fL (78.0-98.0); Mean Platelet Volume 8.5 fL (7.4-10.4); Platelet Count 326 thou/uL (130-400); RBC Distribution Width 14.1 % (11.5-14.5); Red Blood Cell (RBC) Count 4.17 mill/uL (4.70-6.10); White Blood Cell (WBC) Count 6.1 thou/uL (4.8-10.8)
[2022-05-31 04:11] LABS: Anion Gap 15 mmol/L (10-20); BUN (Urea Nitrogen) 13 mg/dL (8.9-20.6); Calc. Creatinine Clearance 162 mL/min (70-130); Calcium 9.5 mg/dL (7.8-10.44); Carbon Dioxide 29 mmol/L (22-29); Chloride 97 mmol/L (98-107); Estimated GFR 118; Glucose 137 mg/dL (70-105); Potassium 4.8 mmol/L (3.5-5.1); Sodium 136 mmol/L (136-145)
[2022-05-31] MEDS: Meropenem 1 GM in Sodium Chloride 0.9% 100 ML IVPB SCH ×3 (04:43→17:12)
[2022-05-31] MEDS: Apixaban 5 MG TAB PO SCH ×2 (07:48→20:31)
[2022-05-31] MEDS: Benzonatate 100 MG CAP PO SCH ×3 (07:48→20:31)
[2022-05-31] MEDS: Acetaminophen/Codeine 30-300mg Tablet PO PRN ×2 (07:50→13:42)
[2022-05-31] MEDS: DULoxetine 30 MG CAP PO SCH (20:31)
[2022-05-31] MEDS: Gabapentin 300 MG CAP PO SCH (20:31)
[2022-05-31] MEDS: HYDROcodone/Acetaminophen 5/325 mg Tablet PO PRN (20:32)
[2022-05-31] MEDS ORDERED: Zolpidem Tartrate 5 MG TAB PO SCH (21:00)
[2022-06-01] MEDS: HYDROcodone/Acetaminophen 5/325 mg Tablet PO PRN ×2 (01:46→08:10)
[2022-06-01] MEDS: Meropenem 1 GM in Sodium Chloride 0.9% 100 ML IVPB SCH ×2 (01:46→10:25)
[2022-06-01 04:07] LABS: #Lymphocytes 0.6 thou/uL (1.20-3.40); #Monocytes 0.6 thou/uL (0.11-0.59); #Neutrophils 7.8 thou/uL (1.40-6.50); %Basophils 0.1 % (0.0-1.0); %Eosinophils 0.1 % (0.0-10.0); %Lymphocytes 6.6 % (21.0-51.0); %Monocytes 6.5 % (0.0-10.0); %Neutrophils 86.8 % (42.0-75.0); Hemoglobin 10.4 g/dL (14.0-18.0); Mean Corpuscular HGB CONC 32.3 g/dL (32.0-36.0); Mean Corpuscular Volume 80.3 fL (78.0-98.0); Mean Platelet Volume 8.2 fL (7.4-10.4); Platelet Count 325 thou/uL (130-400); RBC Distribution Width 14.5 % (11.5-14.5)
[2022-06-01 05:00] LABS: Anion Gap 17 mmol/L (10-20); BUN (Urea Nitrogen) 18 mg/dL (8.9-20.6); Calc. Creatinine Clearance 153 mL/min (70-130); Calcium 9.2 mg/dL (7.8-10.44); Carbon Dioxide 21 mmol/L (22-29); Chloride 102 mmol/L (98-107); Estimated GFR 116; Glucose 148 mg/dL (70-105); Potassium 4.6 mmol/L (3.5-5.1); Sodium 135 mmol/L (136-145)
[2022-06-01] MEDS ORDERED: Levothyroxine 150 MCG TAB PO SCH (06:00)
[2022-06-01] MEDS: methylPREDNISolone Sod Succ/PF 125 MG/2 ML VIAL IVP SCH ×2 (06:04→12:13)
[2022-06-01] MEDS ORDERED: Mometasone 200 MCG/Formoterol 5 MCG 120 PUFF INHALER INH SCH (06:30)
[2022-06-01] MEDS: Gabapentin 300 MG CAP PO SCH (08:11)
[2022-06-01] MEDS: Apixaban 5 MG TAB PO SCH (08:12)
[2022-06-01] MEDS: Benzonatate 100 MG CAP PO SCH (08:12)
[2022-06-01] MEDS: DULoxetine 30 MG CAP PO SCH (08:13)
[2022-06-01 08:19] VITALS: TEMP 98.4
[2022-06-01] MEDS ORDERED: FLUoxetine HCl 20 MG CAP PO SCH (09:00)
[2022-06-01] MEDS: ALPRAZolam 1 MG TAB PO SCH ×2 (10:25→13:46)
[2022-06-01] MEDS ORDERED: methylPREDNISolone Sod Succ 40 MG VIAL IVP SCH (21:00)
== END 2022-06-01 14:00 | disposition home or self-care (01) | DRG 193 ==
LOC: ERS 20:44 → IMCU/EMU 05-30 00:09 → ERHOLD 05-30 00:12 → IMCU/EMU 05-30 09:27
PROVIDERS: ADMIT Student in an Organized Health Care Education/Training Program; ATTEND Family Medicine
PROC: 5A0935A Assistance with Respiratory Ventilation, Less than 24 Consecutive Hours, High Flow/Velocity Cannula (ICD-10-PCS; principal; 2022-05-30)
DX: J15.9 Unspecified bacterial pneumonia (principal); J96.01 Acute respiratory failure with hypoxia; J44.1 Chronic obstructive pulmonary disease with (acute) exacerbation; J44.0 Chronic obstructive pulmonary disease with (acute) lower respiratory infection; E03.9 Hypothyroidism, unspecified; I48.0 Paroxysmal atrial fibrillation; I10 Essential (primary) hypertension; D63.8 Anemia in other chronic diseases classified elsewhere; R51.9 Headache, unspecified; F19.10 Other psychoactive substance abuse, uncomplicated; Z79.899 Other long term (current) drug therapy; Z88.0 Allergy status to penicillin; Z91.09 Other allergy status, other than to drugs and biological substances; Z86.74 Personal history of sudden cardiac arrest; Z90.49 Acquired absence of other specified parts of digestive tract; Z79.01 Long term (current) use of anticoagulants; Z79.82 Long term (current) use of aspirin
CPT/HCPCS: 36415; 36600; 71045; 71275; 80048; 80053; 80306; 80307; 82607; 82728; 82805; 83540; 83550; 83605; 83735; 83880; 84145; 84484; 85025; 86140; 87040; 87077; 87149; 87449; 87633; 93005; 94640; 96365; J0696; J2185; J2270; J2405; J2930; J3030; J3475; J3490; J7620; Q0162; Q9967; U0002

== ENCOUNTER 2022-07-12 02:43 | Emergency (ER) | payer MEDICARE, OTHER ==
[2022-07-12] MEDS ORDERED: Acetaminophen 325 MG TAB PO PRN (10:34)
[2022-07-12] MEDS ORDERED: Ondansetron ODT 4 MG TAB PO PRN (10:34)
[2022-07-12] MEDS ORDERED: Morphine 4 MG/ML VIAL SLOW IVP PRN (10:38)
[2022-07-12] MEDS ORDERED: Sodium Chloride 0.9% 1,000 ML IV SCH (10:45)
[2022-07-12] MEDS ORDERED: Pantoprazole 40 MG VIAL IVP ONE (10:45)
[2022-07-12] MEDS ORDERED: Pantoprazole 40 MG VIAL IVP SCH (21:00)
== END 2022-07-12 04:01 | disposition left against medical advice (07) ==
LOC: ERS 02:43
DX: Z53.21 Procedure and treatment not carried out due to patient leaving prior to being seen by health care provider (principal)
CPT/HCPCS: 93005

== ENCOUNTER 2022-07-12 05:50 | Inpatient (IN) | payer OTHER, MEDICAID ==
[2022-07-12] MEDS ORDERED: Morphine 4 MG/ML VIAL ONE ×3 (07:36→12:33)
[2022-07-12] MEDS ORDERED: Ondansetron PF 4 MG/2 ML Vial ONE (07:36)
[2022-07-12 08:04] LABS: #Basophils 0.1 thou/uL (0.0-0.2); #Eosinphils 0.1 thou/uL (0.0-0.7); #Lymphocytes 1.4 thou/uL (1.20-3.40); #Monocytes 0.4 thou/uL (0.11-0.59); #Neutrophils 4.1 thou/uL (1.40-6.50); %Basophils 0.9 % (0.0-1.0); %Eosinophils 1.2 % (0.0-10.0); %Lymphocytes 22.9 % (21.0-51.0); %Monocytes 6.9 % (0.0-10.0); %Neutrophils 68.1 % (42.0-75.0); Hemoglobin 10.1 g/dL (14.0-18.0); Mean Corpuscular HGB CONC 32.2 g/dL (32.0-36.0); Mean Corpuscular Hemoglobin 25.5 pg (27.0-31.0); Mean Corpuscular Volume 79.2 fl (78.0-98.0); Mean Platelet Volume 10.9 fL (7.4-10.4); Platelet Count 168 10x3/uL (130-400); RBC Distribution Width 15.5 % (11.5-14.5); Red Blood Cell (RBC) Count 3.97 mill/uL (4.70-6.10); White Blood Cell (WBC) Count 6.1 10x3/uL (4.8-10.8)
[2022-07-12 08:24] LABS: ALT (SGPT) 12 U/L (8-55); AST (SGOT) 11 U/L (5-34); Albumin 4.2 g/dL (3.5-5.0); Alkaline Phosphatase 121 U/L (40-110); Anion Gap 12 mmol/L (10-20); BUN (Urea Nitrogen) 10 mg/dL (8.9-20.6); Bilirubin, Total 0.3 mg/dL (0.2-1.2); Calc. Creatinine Clearance 0 mL/min (70-130); Calcium 9.4 mg/dL (7.8-10.44); Carbon Dioxide 26 mmol/L (22-29); Chloride 107 mmol/L (98-107); Estimated GFR 114; Globulin 2.8 g/dL (2.4-3.5); Glucose 107 mg/dL (70-105); Lipase 25 U/L (8-78); Potassium 4.3 mmol/L (3.5-5.1); Sodium 141 mmol/L (136-145)
[2022-07-12 09:16] LABS: Bacteria/HPF None Seen HPF (None Seen); Bilirubin Negative (Negative); Blood, Urine Trace (Negative); Clarity Clear (Clear); Glucose, Urine (Dipstick) Normal (Negative); Ketone, Urine Negative (Negative); Leukocyte Negative Leu/uL (Negative); Nitrite Negative (Negative); Protein, Urine (Dipstick) Negative (Neg-Trace); RBC/HPF 0-3 HPF (0-3); Specific Gravity, Urine 1.022 (1.002-1.036); Squamous Epithelial None Seen HPF (0-3); Urobilinogen Normal mg/dL (Less than 2); WBC/HPF 0-3 HPF (0-3); pH, Urine 5.5 (5.0-9.0)
[2022-07-12] MEDS ORDERED: Iopamidol-370 76% 500 ML 1 ML ONE (10:47)
[2022-07-12] MEDS ORDERED: Pantoprazole 40 MG VIAL IVP SCH (10:50)
[2022-07-12] MEDS ORDERED: Ondansetron PF 4 MG/2 ML Vial IVP PRN (10:52)
[2022-07-12] MEDS ORDERED: Ondansetron ODT 4 MG TAB PO PRN (10:52)
[2022-07-12] MEDS ORDERED: Acetaminophen 325 MG TAB PO PRN (10:52)
[2022-07-12] MEDS ORDERED: Sodium Chloride 0.9% 1,000 ML IV SCH (11:00)
[2022-07-12] MEDS ORDERED: Promethazine HCl 12.5 MG in Sodium Chloride 0.9% 50 ML IVPB PRN (11:23)
[2022-07-12] MEDS ORDERED: Pantoprazole 40 MG VIAL ONE (12:33)
[2022-07-12] MEDS: Morphine 4 MG/ML VIAL SLOW IVP PRN ×3 (12:45→20:38)
[2022-07-12 14:59] VITALS: BMI 26.9
[2022-07-12 15:28] LABS: Hemoglobin 10.2 g/dL (14.0-18.0)
[2022-07-12] MEDS ORDERED: HYDROcodone/Acetaminophen 10/325 mg Tablet PO PRN (15:32)
[2022-07-12] MEDS: Sodium Chloride 0.9% 1,000 ML IV SCH (15:42)
[2022-07-12 20:15] LABS: Hemoglobin 10.4 g/dL (14.0-18.0)
[2022-07-12] MEDS: Pantoprazole 40 MG VIAL IVP SCH (20:38)
[2022-07-12] MEDS ORDERED: ALPRAZolam 1 MG TAB PO PRN (20:47)
[2022-07-12] MEDS ORDERED: Morphine 4 MG/ML VIAL SLOW IVP SCH (21:00)
[2022-07-12] MEDS ORDERED: Benzonatate 100 MG CAP PO PRN (22:49)
[2022-07-12] MEDS ORDERED: Albuterol 200 PUFF (6.7GM INHALER) INH PRN (22:49)
[2022-07-13] MEDS: Sodium Chloride 0.9% 1,000 ML IV SCH (02:36)
[2022-07-13] MEDS: Morphine 4 MG/ML VIAL SLOW IVP PRN ×2 (02:37→08:00)
[2022-07-13 05:58] LABS: Iron 23 ug/dL (65-175); Iron Binding Capacity, Total 436 mcg/dL (261-462)
[2022-07-13 06:23] LABS: Ferritin 14.35 ng/mL (22-322)
[2022-07-13] MEDS ORDERED: Iron Sucrose Complex 200 MG in Sodium Chloride 0.9% 100 ML IVPB SCH (08:00)
[2022-07-13] MEDS ORDERED: Ferrous Sulfate 325 MG TAB PO SCH (08:00)
[2022-07-13] MEDS ORDERED: Iron, Sodium Ferric Gluconate 125 MG in Sodium Chloride 0.9% 100 ML IVPB SCH (08:00)
[2022-07-13] MEDS: Pantoprazole 40 MG VIAL IVP SCH (08:01)
[2022-07-13] MEDS ORDERED: DULoxetine 60 MG CAP PO SCH (09:00)
[2022-07-13] MEDS ORDERED: REMDESIVIR 200 MG in Sodium Chloride 0.9% 250 ML 210 ML IV SCH (09:00)
[2022-07-13] MEDS ORDERED: Dicyclomine 10 MG CAP PO PRN (10:25)
[2022-07-13 12:29] VITALS: BP 104/58; TEMP 97.5
[2022-07-13 13:00] LABS: #Basophils 0.1 thou/uL (0.0-0.2); #Eosinphils 0.1 thou/uL (0.0-0.7); #Lymphocytes 1.6 thou/uL (1.20-3.40); #Monocytes 0.3 thou/uL (0.11-0.59); #Neutrophils 2.3 thou/uL (1.40-6.50); %Basophils 1.1 % (0.0-1.0); %Lymphocytes 35.5 % (21.0-51.0); %Monocytes 7.6 % (0.0-10.0); %Neutrophils 52.7 % (42.0-75.0); Hemoglobin 9.7 g/dL (14.0-18.0); Mean Corpuscular HGB CONC 31.4 g/dL (32.0-36.0); Mean Corpuscular Hemoglobin 25.1 pg (27.0-31.0); Mean Corpuscular Volume 79.9 fl (78.0-98.0); Mean Platelet Volume 10.6 fL (7.4-10.4); Platelet Count 160 10x3/uL (130-400); RBC Distribution Width 15.5 % (11.5-14.5); Red Blood Cell (RBC) Count 3.85 mill/uL (4.70-6.10); White Blood Cell (WBC) Count 4.4 10x3/uL (4.8-10.8)
[2022-07-14] MEDS ORDERED: REMDESIVIR 100 MG in Sodium Chloride 0.9% 250 ML 230 ML IV SCH (09:00)
== END 2022-07-13 15:09 | disposition home or self-care (01) | DRG 377 ==
LOC: ERS 05:50 → ERHOLD 09:48 → 2SW 14:50
PROVIDERS: ADMIT Internal Medicine; ATTEND Internal Medicine
PROC: XW033E5 Introduction of Remdesivir Anti-infective into Peripheral Vein, Percutaneous Approach, New Technology Group 5 (ICD-10-PCS; principal; 2022-07-13)
PROC: 8E0ZXY6 Isolation (ICD-10-PCS; 2022-07-13)
DX: K92.1 Melena (principal); U07.1 COVID-19; K50.90 Crohn's disease, unspecified, without complications; I10 Essential (primary) hypertension; E78.5 Hyperlipidemia, unspecified; G43.909 Migraine, unspecified, not intractable, without status migrainosus; K29.50 Unspecified chronic gastritis without bleeding; I48.0 Paroxysmal atrial fibrillation; F32.A Depression, unspecified; F41.9 Anxiety disorder, unspecified; K44.9 Diaphragmatic hernia without obstruction or gangrene; G47.00 Insomnia, unspecified; D50.9 Iron deficiency anemia, unspecified; Z88.6 Allergy status to analgesic agent; Z88.0 Allergy status to penicillin; Z88.8 Allergy status to other drugs, medicaments and biological substances; Z79.899 Other long term (current) drug therapy; Z90.49 Acquired absence of other specified parts of digestive tract; Z82.3 Family history of stroke; Z91.013 Allergy to seafood
CPT/HCPCS: 36415; 74177; 80053; 81003; 81015; 82274; 82607; 82728; 83540; 83550; 83690; 85025; 86850; 86900; 86901; 93005; 96374; 96375; 96376; C9113; J0248; J2270; J2405; J2550; J2916; J3490; J7050; Q9967; U0003; U0005

== ENCOUNTER 2022-07-18 23:31 | Emergency (ER) | payer OTHER, MEDICAID ==
[2022-07-19 01:15] LABS: #Eosinphils 0.1 thou/uL (0.0-0.7); #Lymphocytes 1.7 thou/uL (1.20-3.40); #Monocytes 0.5 thou/uL (0.11-0.59); %Basophils 0.1 % (0.0-1.0); %Eosinophils 2.2 % (0.0-10.0); %Lymphocytes 26.8 % (21.0-51.0); %Monocytes 7.2 % (0.0-10.0); %Neutrophils 63.6 % (42.0-75.0); Hemoglobin 11.7 g/dL (14.0-18.0); Mean Corpuscular HGB CONC 31.4 g/dL (32.0-36.0); Mean Corpuscular Hemoglobin 24.9 pg (27.0-31.0); Mean Corpuscular Volume 79.1 fl (78.0-98.0); Mean Platelet Volume 9.5 fL (7.4-10.4); Platelet Count 277 10x3/uL (130-400); RBC Distribution Width 16.7 % (11.5-14.5); White Blood Cell (WBC) Count 6.2 10x3/uL (4.8-10.8)
[2022-07-19 01:29] LABS: ALT (SGPT) 14 U/L (8-55); AST (SGOT) 13 U/L (5-34); Albumin 4.5 g/dL (3.5-5.0); Alkaline Phosphatase 110 U/L (40-110); Anion Gap 15 mmol/L (10-20); BUN (Urea Nitrogen) 17 mg/dL (8.9-20.6); Bilirubin, Total 0.5 mg/dL (0.2-1.2); Calc. Creatinine Clearance 0 mL/min (70-130); Calcium 9.6 mg/dL (7.8-10.44); Carbon Dioxide 22 mmol/L (22-29); Chloride 106 mmol/L (98-107); Estimated GFR 108; Glucose 108 mg/dL (70-105); Potassium 4.3 mmol/L (3.5-5.1); Protein, Total 7.5 g/dL (6.0-8.3); Sodium 139 mmol/L (136-145)
[2022-07-19] MEDS ORDERED: Ondansetron PF 4 MG/2 ML Vial ONE (02:06)
[2022-07-19] MEDS ORDERED: Dicyclomine 20 MG TAB ONE (02:06)
[2022-07-19] MEDS ORDERED: Acetaminophen 500 MG TAB ONE (02:28)
[2022-07-19 02:38] LABS: Bilirubin Negative (Negative); Blood, Urine Negative (Negative); Clarity Clear (Clear); Glucose, Urine (Dipstick) Normal (Negative); Ketone, Urine Negative (Negative); Leukocyte Negative Leu/uL (Negative); Nitrite Negative (Negative); Protein, Urine (Dipstick) 20 mg/dL (Neg-Trace); Specific Gravity, Urine 1.026 (1.002-1.036); Urobilinogen Normal mg/dL (Less than 2)
[2022-07-19] MEDS ORDERED: Glycopyrrolate 0.2 MG/ML 5 ML SYRINGE SLOW IVP SCH (03:45)
[2022-07-19] MEDS ORDERED: Iopamidol-370 76% 500 ML 1 ML ONE (10:38)
== END 2022-07-19 04:25 | disposition home or self-care (01) ==
LOC: ERS 23:31
DX: R10.32 Left lower quadrant pain (principal); E78.5 Hyperlipidemia, unspecified; I10 Essential (primary) hypertension; Z79.899 Other long term (current) drug therapy
CPT/HCPCS: 36415; 74177; 80053; 81003; 83690; 85025; 86900; 86901; 96374; 96375; J2405; Q9967

== ENCOUNTER 2022-09-06 11:01 | Inpatient (IN) | payer OTHER, MEDICAID ==
[2022-09-06 12:13] LABS: #Eosinphils 0.1 thou/uL (0.0-0.7); #Lymphocytes 1.2 thou/uL (1.20-3.40); #Monocytes 0.4 thou/uL (0.11-0.59); #Neutrophils 3.4 thou/uL (1.40-6.50); %Basophils 0.6 % (0.0-1.0); %Lymphocytes 24.3 % (21.0-51.0); %Monocytes 7.5 % (0.0-10.0); %Neutrophils 65.6 % (42.0-75.0); Hemoglobin 10.4 g/dL (14.0-18.0); Mean Corpuscular HGB CONC 35.1 g/dL (32.0-36.0); Mean Corpuscular Hemoglobin 25.8 pg (27.0-31.0); Mean Corpuscular Volume 73.6 fl (78.0-98.0); Mean Platelet Volume 10.2 fL (7.4-10.4); Platelet Count 184 10x3/uL (130-400); RBC Distribution Width 17.7 % (11.5-14.5); Red Blood Cell (RBC) Count 4.04 mill/uL (4.70-6.10); White Blood Cell (WBC) Count 5.1 10x3/uL (4.8-10.8)
[2022-09-06 12:22] LABS: INR-International Normal Ratio 1.2; PTT 32.3 sec (22.9-36.1); Prothrombin Time 15.2 sec (12.0-14.7)
[2022-09-06 12:29] LABS: Anisocytosis SLIGHT = 6-15 cells (100X) (0-5/hpf); Hypochromia SLIGHT = 6-15 cells (100X) (0-5/hpf); Large Platelets SLIGHT; MDiff Complete? YES; Microcytosis SLIGHT = 6-15 cells (100X) (0-5/hpf); Ovalocytes SLIGHT = 2-5 cells (100X) (0-1/hpf); Platelet Morphology Comment Appears Adequate; Polychromasia SLIGHT = 2-3 cells (100X) (0-2/hpf)
[2022-09-06 12:39] LABS: ALT (SGPT) 8 U/L (8-55); AST (SGOT) 11 U/L (5-34); Albumin 4.1 g/dL (3.5-5.0); Alkaline Phosphatase 100 U/L (40-110); Anion Gap 14 mmol/L (10-20); BUN (Urea Nitrogen) 10 mg/dL (8.9-20.6); Bilirubin, Total 0.3 mg/dL (0.2-1.2); Calc. Creatinine Clearance 0 mL/min (70-130); Calcium 9.1 mg/dL (7.8-10.44); Carbon Dioxide 24 mmol/L (22-29); Chloride 108 mmol/L (98-107); Estimated GFR 113; Globulin 2.6 g/dL (2.4-3.5); Glucose 101 mg/dL (70-105); Lipase 14 U/L (8-78); Potassium 3.7 mmol/L (3.5-5.1); Protein, Total 6.7 g/dL (6.0-8.3); Sodium 142 mmol/L (136-145)
[2022-09-06] MEDS ORDERED: Pantoprazole 40 MG VIAL ONE (12:48)
[2022-09-06] MEDS ORDERED: Ondansetron PF 4 MG/2 ML Vial ONE (12:48)
[2022-09-06] MEDS ORDERED: Fentanyl 100 MCG/2 ML VIAL ONE (13:48)
[2022-09-06] MEDS ORDERED: HYDROcodone/Acetaminophen 5/325 mg Tablet PO PRN (14:21)
[2022-09-06] MEDS ORDERED: Dicyclomine 10 MG CAP PO PRN (14:24)
[2022-09-06] MEDS ORDERED: Pantoprazole 80 MG, Admixture Fee 1 EACH in Sodium Chloride 0.9% 100 ML IVPB SCH (14:30)
[2022-09-06 19:11] VITALS: BMI 26.5
[2022-09-06] MEDS: HYDROcodone/Acetaminophen 10/325 mg Tablet PO SCH ×2 (19:11→21:33)
[2022-09-06] MEDS: Polyethylene Glycol 3350 17 GM Packet PO SCH ×2 (19:12→21:34)
[2022-09-06] MEDS: Lactated Ringer's 1,000 ML IV SCH (19:15)
[2022-09-06] MEDS: Pregabalin 50 MG CAP PO SCH (20:00)
[2022-09-06] MEDS: Zolpidem Tartrate 5 MG TAB PO SCH (20:01)
[2022-09-06] MEDS: ALPRAZolam 1 MG TAB PO PRN (20:09)
[2022-09-06] MEDS: Ondansetron PF 4 MG/2 ML Vial IVP PRN (21:05)
[2022-09-06] MEDS ORDERED: Fentanyl 100 MCG/2 ML VIAL SLOW IVP SCH (21:30)
[2022-09-06] MEDS: QUEtiapine 200 MG TAB PO SCH (21:34)
[2022-09-06 21:42] LABS: #Basophils 0.1 thou/uL (0.0-0.2); #Eosinphils 0.1 thou/uL (0.0-0.7); #Lymphocytes 1.5 thou/uL (1.20-3.40); #Monocytes 0.5 thou/uL (0.11-0.59); %Basophils 1.3 % (0.0-1.0); %Eosinophils 2.1 % (0.0-10.0); %Lymphocytes 28.8 % (21.0-51.0); %Monocytes 8.9 % (0.0-10.0); %Neutrophils 58.9 % (42.0-75.0); Hemoglobin 9.4 g/dL (14.0-18.0); Mean Corpuscular HGB CONC 32.7 g/dL (32.0-36.0); Mean Corpuscular Hemoglobin 24.3 pg (27.0-31.0); Mean Corpuscular Volume 74.3 fl (78.0-98.0); Mean Platelet Volume 9.8 fL (7.4-10.4); Platelet Count 215 10x3/uL (130-400); RBC Distribution Width 17.7 % (11.5-14.5); Red Blood Cell (RBC) Count 3.89 mill/uL (4.70-6.10); White Blood Cell (WBC) Count 5.1 10x3/uL (4.8-10.8)
[2022-09-07] MEDS: Morphine 2 MG/ML VIAL SLOW IVP PRN ×5 (00:42→17:20)
[2022-09-07] MEDS ORDERED: Sodium Chloride 0.9% 1,000 ML IV SCH (02:00)
[2022-09-07 02:50] LABS: #Eosinphils 0.1 thou/uL (0.0-0.7); #Lymphocytes 1.4 thou/uL (1.20-3.40); #Monocytes 0.7 thou/uL (0.11-0.59); #Neutrophils 5.4 thou/uL (1.40-6.50); %Basophils 0.4 % (0.0-1.0); %Eosinophils 1.9 % (0.0-10.0); %Lymphocytes 18.6 % (21.0-51.0); %Monocytes 8.7 % (0.0-10.0); %Neutrophils 70.5 % (42.0-75.0); Hemoglobin 8.8 g/dL (14.0-18.0); Mean Corpuscular Hemoglobin 23.7 pg (27.0-31.0); Mean Platelet Volume 10.6 fL (7.4-10.4); Platelet Count 203 10x3/uL (130-400); RBC Distribution Width 17.7 % (11.5-14.5); Red Blood Cell (RBC) Count 3.73 mill/uL (4.70-6.10); White Blood Cell (WBC) Count 7.7 10x3/uL (4.8-10.8)
[2022-09-07 03:13] LABS: Anion Gap 15 mmol/L (10-20); BUN (Urea Nitrogen) 13 mg/dL (8.9-20.6); Calc. Creatinine Clearance 148 mL/min (70-130); Calcium 8.7 mg/dL (7.8-10.44); Carbon Dioxide 22 mmol/L (22-29); Chloride 107 mmol/L (98-107); Estimated GFR 112; Glucose 81 mg/dL (70-105); Potassium 3.9 mmol/L (3.5-5.1); Sodium 140 mmol/L (136-145)
[2022-09-07] MEDS: Levothyroxine 150 MCG TAB PO SCH (05:08)
[2022-09-07] MEDS: Lactated Ringer's 1,000 ML IV SCH ×2 (05:08→17:49)
[2022-09-07 07:17] LABS: Hemoglobin 8.2 g/dL (14.0-18.0)
[2022-09-07 08:47] LABS: Hemoglobin 7.3 g/dL (14.0-18.0)
[2022-09-07] MEDS: Polyethylene Glycol 3350 17 GM Packet PO SCH ×4 (09:00→20:44)
[2022-09-07] MEDS: HYDROcodone/Acetaminophen 10/325 mg Tablet PO SCH ×4 (09:00→20:44)
[2022-09-07] MEDS: Pregabalin 50 MG CAP PO SCH ×2 (09:00→20:45)
[2022-09-07] MEDS: DULoxetine 60 MG CAP PO SCH (09:00)
[2022-09-07] MEDS ORDERED: Fentanyl 100 MCG/2 ML VIAL ONE (10:11)
[2022-09-07] MEDS ORDERED: PROPOFOL 200 MG/20 ML VIAL ONE (10:14)
[2022-09-07] MEDS ORDERED: Lidocaine 1% PF 5 ML VIAL ONE (10:14)
[2022-09-07] MEDS ORDERED: Succinylcholine Chloride 100 MG/5 ML SYRINGE FS ONE (10:14)
[2022-09-07] MEDS ORDERED: Ondansetron PF 4 MG/2 ML Vial ONE (10:14)
[2022-09-07] MEDS: Mometasone 100 MCG/PUFF (1 INHALER) INH SCH ×2 (10:42→19:11)
[2022-09-07] MEDS: Ipratropium/Albuterol 3 ML NEB NEB SCH ×4 (10:42→23:53)
[2022-09-07 12:03] LABS: Hemoglobin 7.6 g/dL (14.0-18.0); Platelet Count 124 10x3/uL (130-400)
[2022-09-07] MEDS: Ondansetron PF 4 MG/2 ML Vial IVP PRN (13:44)
[2022-09-07] MEDS: Acetaminophen 325 MG TAB PO PRN (17:20)
[2022-09-07 18:40] LABS: Hemoglobin 8.8 g/dL (14.0-18.0); Platelet Count 164 10x3/uL (130-400)
[2022-09-07] MEDS: Zolpidem Tartrate 5 MG TAB PO SCH (20:46)
[2022-09-07] MEDS: QUEtiapine 200 MG TAB PO SCH (22:02)
[2022-09-08] MEDS ORDERED: Sodium Chloride 0.9% 1,000 ML IV SCH (01:30)
[2022-09-08 01:44] LABS: Hemoglobin 7.8 g/dL (14.0-18.0); Platelet Count 141 10x3/uL (130-400)
[2022-09-08] MEDS: ALPRAZolam 1 MG TAB PO PRN ×2 (03:29→09:11)
[2022-09-08] MEDS ORDERED: PROPOFOL 200 MG/20 ML VIAL ONE (04:44)
[2022-09-08] MEDS ORDERED: Rocuronium Bromide 10 MG/ML (10ML VIAL) ONE (04:44)
[2022-09-08] MEDS ORDERED: Glycopyrrolate 0.2 MG/ML 5 ML SYRINGE ONE (04:44)
[2022-09-08] MEDS ORDERED: PHENYLEPHRINE-NS 100 MCG/ML 10 ML SYRINGE ONE (04:44)
[2022-09-08] MEDS ORDERED: Ondansetron PF 4 MG/2 ML Vial ONE (04:44)
[2022-09-08] MEDS ORDERED: NEOSTIGMINE 3 MG/3 ML SYR 3 MG/3 ML SYRINGE ONE (04:44)
[2022-09-08] MEDS ORDERED: Lidocaine 1% PF 5 ML VIAL ONE (04:44)
[2022-09-08] MEDS: Levothyroxine 150 MCG TAB PO SCH (05:06)
[2022-09-08] MEDS: Morphine 2 MG/ML VIAL SLOW IVP PRN ×4 (05:06→19:37)
[2022-09-08] MEDS ORDERED: fentaNYL PF 100 MCG/2 ML SYRINGE ONE (05:43)
[2022-09-08] MEDS: Clindamycin/D5W 600 MG in Premix Bag 1 BAG IVPB SCH ×3 (05:57→18:17)
[2022-09-08 06:34] LABS: Hemoglobin 8.1 g/dL (14.0-18.0); Platelet Count 158 10x3/uL (130-400)
[2022-09-08 06:37] LABS: #Eosinphils 0.1 thou/uL (0.0-0.7); #Lymphocytes 0.5 thou/uL (1.20-3.40); #Monocytes 0.3 thou/uL (0.11-0.59); #Neutrophils 1.6 thou/uL (1.40-6.50); %Basophils 1.2 % (0.0-1.0); %Lymphocytes 20.7 % (21.0-51.0); %Monocytes 11.9 % (0.0-10.0); %Neutrophils 63.2 % (42.0-75.0); Hemoglobin 7.9 g/dL (14.0-18.0); Mean Corpuscular HGB CONC 31.7 g/dL (32.0-36.0); Mean Corpuscular Hemoglobin 23.6 pg (27.0-31.0); Mean Corpuscular Volume 74.4 fl (78.0-98.0); Mean Platelet Volume 11.1 fL (7.4-10.4); Platelet Count 148 10x3/uL (130-400); RBC Distribution Width 17.4 % (11.5-14.5); Red Blood Cell (RBC) Count 3.33 mill/uL (4.70-6.10); White Blood Cell (WBC) Count 2.6 10x3/uL (4.8-10.8)
[2022-09-08 06:51] LABS: ALT (SGPT) 28 U/L (8-55); AST (SGOT) 28 U/L (5-34); Albumin 3.8 g/dL (3.5-5.0); Alkaline Phosphatase 160 U/L (40-110); Anion Gap 12 mmol/L (10-20); BUN (Urea Nitrogen) 6 mg/dL (8.9-20.6); Bilirubin, Total 0.4 mg/dL (0.2-1.2); CRP (Inflammatory) 4.18 mg/dL (= or < 0.5); Calc. Creatinine Clearance 141 mL/min (70-130); Calcium 8.5 mg/dL (7.8-10.44); Carbon Dioxide 26 mmol/L (22-29); Chloride 106 mmol/L (98-107); Estimated GFR 110; Globulin 2.4 g/dL (2.4-3.5); Glucose 104 mg/dL (70-105); Potassium 3.3 mmol/L (3.5-5.1); Protein, Total 6.2 g/dL (6.0-8.3); Sodium 141 mmol/L (136-145)
[2022-09-08] MEDS ORDERED: cefOXitin 2 GM VIAL ONE (06:53)
[2022-09-08] MEDS ORDERED: Vancomycin 1 GM VIAL ONE (06:53)
[2022-09-08] MEDS: Mometasone 100 MCG/PUFF (1 INHALER) INH SCH ×2 (06:54→18:44)
[2022-09-08] MEDS: Ipratropium/Albuterol 3 ML NEB NEB SCH ×3 (06:54→18:44)
[2022-09-08] MEDS ORDERED: SUGAMMADEX SODIUM 200 MG/2 ML VIAL ONE (07:08)
[2022-09-08] MEDS ORDERED: HYDROmorphone 2 MG/ML VIAL SLOW IVP PRN (07:32)
[2022-09-08] MEDS ORDERED: Promethazine HCl 25 MG/ML VIAL IM PRN (07:32)
[2022-09-08] MEDS ORDERED: Fentanyl 100 MCG/2 ML VIAL ONE ×2 (07:35→07:59)
[2022-09-08] MEDS ORDERED: VANCOMYCIN 2 GRAM/500 ML BAG 2 GM in Premix Bag 1 BAG IVPB SCH (08:00)
[2022-09-08] MEDS: HYDROcodone/Acetaminophen 10/325 mg Tablet PO SCH ×4 (08:54→21:18)
[2022-09-08] MEDS ORDERED: Vancomycin 1.5 GRAM/300 ML BAG IVPB SCH (09:00)
[2022-09-08] MEDS: Cefepime 2 GM in Sodium Chloride 0.9% 100 ML IVPB SCH ×2 (09:05→19:32)
[2022-09-08] MEDS: Lactated Ringer's 1,000 ML IV SCH (09:05)
[2022-09-08] MEDS: Polyethylene Glycol 3350 17 GM Packet PO SCH ×3 (09:06→19:33)
[2022-09-08] MEDS: DULoxetine 60 MG CAP PO SCH (09:06)
[2022-09-08] MEDS: Pregabalin 50 MG CAP PO SCH ×2 (09:11→19:37)
[2022-09-08] MEDS ORDERED: Potassium Chloride 20 MEQ TAB PO SCH (09:30)
[2022-09-08 10:26] LABS: Hemoglobin 7.1 g/dL (14.0-18.0); Platelet Count 137 10x3/uL (130-400)
[2022-09-08] MEDS ORDERED: Iopamidol 370 76% 100 ML VIAL ONE (11:09)
[2022-09-08] MEDS: Acetaminophen 325 MG TAB PO PRN (14:02)
[2022-09-08] MEDS ORDERED: Morphine 2 MG/ML VIAL SLOW IVP SCH (15:00)
[2022-09-08] MEDS: VANCOMYCIN 1.25 GM/250 ML BAG 1.25 GM in Premix Bag 1 BAG IVPB SCH (16:03)
[2022-09-08 16:39] LABS: #Eosinphils 0.1 thou/uL (0.0-0.7); #Lymphocytes 0.5 thou/uL (1.20-3.40); #Monocytes 0.4 thou/uL (0.11-0.59); #Neutrophils 1.7 thou/uL (1.40-6.50); %Basophils 0.3 % (0.0-1.0); %Eosinophils 4.1 % (0.0-10.0); %Lymphocytes 19.6 % (21.0-51.0); %Monocytes 14.9 % (0.0-10.0); %Neutrophils 61.2 % (42.0-75.0); Mean Corpuscular HGB CONC 31.6 g/dL (32.0-36.0); Mean Corpuscular Hemoglobin 23.4 pg (27.0-31.0); Mean Corpuscular Volume 73.8 fl (78.0-98.0); Mean Platelet Volume 11.1 fL (7.4-10.4); Platelet Count 116 10x3/uL (130-400); RBC Distribution Width 17.2 % (11.5-14.5); Red Blood Cell (RBC) Count 2.98 mill/uL (4.70-6.10); White Blood Cell (WBC) Count 2.7 10x3/uL (4.8-10.8)
[2022-09-08 16:56] LABS: INR-International Normal Ratio 1.3; PTT 32.7 sec (22.9-36.1); Prothrombin Time 17.1 sec (12.0-14.7)
[2022-09-08 16:57] LABS: D-Dimer Test 0.59 *mcg/mL (0.27-0.43)
[2022-09-08 16:58] LABS: Anion Gap 10 mmol/L (10-20); BUN (Urea Nitrogen) 6 mg/dL (8.9-20.6); Calc. Creatinine Clearance 127 mL/min (70-130); Calcium 8.2 mg/dL (7.8-10.44); Carbon Dioxide 25 mmol/L (22-29); Chloride 109 mmol/L (98-107); Estimated GFR 104; Glucose 122 mg/dL (70-105); Potassium 3.8 mmol/L (3.5-5.1); Sodium 140 mmol/L (136-145)
[2022-09-08] MEDS ORDERED: Methocarbamol 1 GM in Sodium Chloride 0.9% 100 ML IVPB PRN (19:18)
[2022-09-08] MEDS: QUEtiapine 200 MG TAB PO SCH (19:33)
[2022-09-08] MEDS: Senokot S 8.6-50 MG TAB PO SCH (19:34)
[2022-09-08] MEDS: Zolpidem Tartrate 5 MG TAB PO SCH (19:34)
[2022-09-08 22:55] LABS: Lactic Acid 0.7 mmol/L (0.5-2.2)
[2022-09-09] MEDS: Ipratropium/Albuterol 3 ML NEB NEB SCH ×4 (00:11→18:55)
[2022-09-09] MEDS: Clindamycin/D5W 600 MG in Premix Bag 1 BAG IVPB SCH ×6 (00:21→23:21)
[2022-09-09] MEDS: Lactated Ringer's 1,000 ML IV SCH ×3 (00:21→23:21)
[2022-09-09 00:38] LABS: Hemoglobin 7.1 g/dL (14.0-18.0)
[2022-09-09] MEDS: VANCOMYCIN 1.25 GM/250 ML BAG 1.25 GM in Premix Bag 1 BAG IVPB SCH ×2 (00:58→08:22)
[2022-09-09] MEDS: Morphine 2 MG/ML VIAL SLOW IVP PRN ×4 (04:57→22:15)
[2022-09-09] MEDS: Levothyroxine 150 MCG TAB PO SCH (04:58)
[2022-09-09] MEDS: Mometasone 100 MCG/PUFF (1 INHALER) INH SCH ×2 (06:31→18:55)
[2022-09-09 07:50] LABS: Anion Gap 12 mmol/L (10-20); BUN (Urea Nitrogen) 6 mg/dL (8.9-20.6); Calc. Creatinine Clearance 152 mL/min (70-130); Calcium 8.5 mg/dL (7.8-10.44); Carbon Dioxide 29 mmol/L (22-29); Chloride 101 mmol/L (98-107); Estimated GFR 113; Glucose 111 mg/dL (70-105); Potassium 3.5 mmol/L (3.5-5.1); Sodium 138 mmol/L (136-145)
[2022-09-09] MEDS: Polyethylene Glycol 3350 17 GM Packet PO SCH ×4 (08:06→21:03)
[2022-09-09] MEDS: HYDROcodone/Acetaminophen 10/325 mg Tablet PO SCH ×4 (08:07→20:40)
[2022-09-09] MEDS: Senokot S 8.6-50 MG TAB PO SCH ×2 (08:07→21:03)
[2022-09-09] MEDS: DULoxetine 60 MG CAP PO SCH (08:07)
[2022-09-09] MEDS: Pregabalin 50 MG CAP PO SCH ×2 (08:07→20:41)
[2022-09-09] MEDS: Cefepime 2 GM in Sodium Chloride 0.9% 100 ML IVPB SCH ×2 (08:08→20:41)
[2022-09-09 08:26] LABS: Band 21 % (5-11); Eosinophils 6 % (0-10); Hemoglobin 7.4 g/dL (14.0-18.0); Large Platelets SLIGHT; Lymphocytes 14 % (21-51); MDiff Complete? YES; Mean Corpuscular Hemoglobin 24.2 pg (27.0-31.0); Mean Corpuscular Volume 75.6 fl (78.0-98.0); Mean Platelet Volume 11.3 fL (7.4-10.4); Microcytosis SLIGHT = 6-15 cells (100X) (0-5/hpf); Monocytes 18 % (0-10); Neutrophil 40 % (42-75); Platelet Count 121 10x3/uL (130-400); Platelet Morphology Comment Appears Decreased; Polychromasia SLIGHT = 2-3 cells (100X) (0-2/hpf); RBC Distribution Width 17.8 % (11.5-14.5); Reactive Lymphocytes 1 % (0-10); Red Blood Cell (RBC) Count 3.04 mill/uL (4.70-6.10); Stomatocytes SLIGHT = 2-5 cells (100X) (0-1/hpf); Tear Drops SLIGHT = 2-5 cells (100X) (0-1/hpf); White Blood Cell (WBC) Count 2.7 10x3/uL (4.8-10.8)
[2022-09-09] MEDS: Vancomycin 1 GM in Premix Bag 1 BAG IVPB SCH ×2 (09:10→17:04)
[2022-09-09] MEDS: ALPRAZolam 1 MG TAB PO PRN ×2 (09:26→23:20)
[2022-09-09] MEDS: Fentanyl 100 MCG/2 ML VIAL SLOW IVP PRN ×3 (11:17→20:48)
[2022-09-09 15:10] LABS: Hemoglobin 8.5 g/dL (14.0-18.0)
[2022-09-09] MEDS: Zolpidem Tartrate 5 MG TAB PO SCH (20:41)
[2022-09-09] MEDS: QUEtiapine 200 MG TAB PO SCH ×2 (21:03→22:15)
[2022-09-10] MEDS: Ipratropium/Albuterol 3 ML NEB NEB SCH ×4 (00:06→18:37)
[2022-09-10] MEDS: Vancomycin 1 GM in Premix Bag 1 BAG IVPB SCH ×3 (00:23→17:30)
[2022-09-10] MEDS: Levothyroxine 150 MCG TAB PO SCH (05:17)
[2022-09-10] MEDS: Clindamycin/D5W 600 MG in Premix Bag 1 BAG IVPB SCH ×4 (05:17→23:12)
[2022-09-10] MEDS: Morphine 2 MG/ML VIAL SLOW IVP PRN ×4 (05:20→23:59)
[2022-09-10] MEDS: Mometasone 100 MCG/PUFF (1 INHALER) INH SCH ×2 (07:25→18:38)
[2022-09-10] MEDS: Polyethylene Glycol 3350 17 GM Packet PO SCH ×3 (07:28→21:19)
[2022-09-10 08:35] LABS: Hemoglobin 6.6 g/dL (14.0-18.0); Mean Corpuscular HGB CONC 31.5 g/dL (32.0-36.0); Mean Corpuscular Hemoglobin 23.8 pg (27.0-31.0); Mean Corpuscular Volume 75.7 fl (78.0-98.0); Mean Platelet Volume 11.1 fL (7.4-10.4); Platelet Count 132 10x3/uL (130-400); RBC Distribution Width 18.4 % (11.5-14.5); Red Blood Cell (RBC) Count 2.76 mill/uL (4.70-6.10); White Blood Cell (WBC) Count 2.2 10x3/uL (4.8-10.8)
[2022-09-10] MEDS: Pregabalin 50 MG CAP PO SCH ×2 (08:50→19:53)
[2022-09-10 08:51] LABS: Vancomycin, Trough 17.6 ug/mL
[2022-09-10] MEDS: Senokot S 8.6-50 MG TAB PO SCH ×2 (08:51→21:18)
[2022-09-10] MEDS: HYDROcodone/Acetaminophen 10/325 mg Tablet PO SCH ×4 (08:52→19:46)
[2022-09-10] MEDS: DULoxetine 60 MG CAP PO SCH (08:52)
[2022-09-10 09:22] LABS: Anion Gap 13 mmol/L (10-20); BUN (Urea Nitrogen) 7 mg/dL (8.9-20.6); Calc. Creatinine Clearance 160 mL/min (70-130); Carbon Dioxide 26 mmol/L (22-29); Chloride 104 mmol/L (98-107); Estimated GFR 115; Glucose 128 mg/dL (70-105); Potassium 3.2 mmol/L (3.5-5.1); Sodium 140 mmol/L (136-145)
[2022-09-10] MEDS: Cefepime 2 GM in Sodium Chloride 0.9% 100 ML IVPB SCH ×2 (10:35→19:47)
[2022-09-10 11:48] LABS: Band 4 % (5-11); Eosinophils 9 % (0-10); Hypochromia MODERATE=16-30 cells (100X) (0-5/hpf); Lymphocytes 33 % (21-51); MDiff Complete? YES; Microcytosis SLIGHT = 6-15 cells (100X) (0-5/hpf); Monocytes 17 % (0-10); Neutrophil 36 % (42-75); Platelet Morphology Comment Appears Adequate; Polychromasia SLIGHT = 2-3 cells (100X) (0-2/hpf)
[2022-09-10] MEDS: Lactated Ringer's 1,000 ML IV SCH (12:15)
[2022-09-10] MEDS ORDERED: Fentanyl 100 MCG/2 ML VIAL SLOW IVP SCH (16:50)
[2022-09-10] MEDS: Zolpidem Tartrate 5 MG TAB PO SCH (19:47)
[2022-09-10] MEDS: QUEtiapine 200 MG TAB PO SCH (19:48)
[2022-09-10] MEDS ORDERED: Morphine 2 MG/ML VIAL SLOW IVP SCH (21:15)
[2022-09-10 21:22] LABS: Hemoglobin 8.3 g/dL (14.0-18.0)
[2022-09-10] MEDS: Fentanyl 100 MCG/2 ML VIAL SLOW IVP PRN (22:18)
[2022-09-11] MEDS: Vancomycin 1 GM in Premix Bag 1 BAG IVPB SCH ×2 (00:39→09:08)
[2022-09-11] MEDS: ALPRAZolam 1 MG TAB PO PRN (00:43)
[2022-09-11] MEDS: Ipratropium/Albuterol 3 ML NEB NEB SCH ×4 (01:13→18:29)
[2022-09-11] MEDS: Lactated Ringer's 1,000 ML IV SCH ×2 (01:26→14:39)
[2022-09-11] MEDS: Fentanyl 100 MCG/2 ML VIAL SLOW IVP PRN ×5 (05:09→23:54)
[2022-09-11] MEDS: Clindamycin/D5W 600 MG in Premix Bag 1 BAG IVPB SCH ×4 (05:10→23:54)
[2022-09-11] MEDS: Levothyroxine 150 MCG TAB PO SCH (05:10)
[2022-09-11] MEDS: Mometasone 100 MCG/PUFF (1 INHALER) INH SCH ×2 (07:00→18:28)
[2022-09-11] MEDS: Morphine 2 MG/ML VIAL SLOW IVP PRN ×4 (07:20→21:03)
[2022-09-11 08:31] LABS: #Eosinphils 0.2 thou/uL (0.0-0.7); #Lymphocytes 1.1 thou/uL (1.20-3.40); #Monocytes 0.4 thou/uL (0.11-0.59); #Neutrophils 1.4 thou/uL (1.40-6.50); %Basophils 0.9 % (0.0-1.0); %Eosinophils 6.5 % (0.0-10.0); %Monocytes 12.2 % (0.0-10.0); %Neutrophils 45.4 % (42.0-75.0); Hemoglobin 7.6 g/dL (14.0-18.0); Mean Corpuscular HGB CONC 32.1 g/dL (32.0-36.0); Mean Corpuscular Hemoglobin 24.8 pg (27.0-31.0); Mean Corpuscular Volume 77.4 fl (78.0-98.0); Mean Platelet Volume 10.5 fL (7.4-10.4); Platelet Count 155 10x3/uL (130-400); RBC Distribution Width 18.6 % (11.5-14.5); Red Blood Cell (RBC) Count 3.04 mill/uL (4.70-6.10); White Blood Cell (WBC) Count 3.1 10x3/uL (4.8-10.8)
[2022-09-11 08:50] LABS: Vancomycin, Trough 24.2 ug/mL
[2022-09-11 08:52] LABS: Anion Gap 10 mmol/L (10-20); BUN (Urea Nitrogen) 5 mg/dL (8.9-20.6); Calc. Creatinine Clearance 162 mL/min (70-130); Calcium 8.5 mg/dL (7.8-10.44); Carbon Dioxide 31 mmol/L (22-29); Chloride 102 mmol/L (98-107); Estimated GFR 115; Glucose 81 mg/dL (70-105); Potassium 3.4 mmol/L (3.5-5.1); Sodium 140 mmol/L (136-145)
[2022-09-11] MEDS ORDERED: Lidocaine 1% w/Epinephrine 1:100K 20 ML VIAL FS SCH (09:00)
[2022-09-11] MEDS: Cefepime 2 GM in Sodium Chloride 0.9% 100 ML IVPB SCH ×2 (09:06→20:56)
[2022-09-11] MEDS: DULoxetine 60 MG CAP PO SCH (09:06)
[2022-09-11] MEDS: Pregabalin 50 MG CAP PO SCH ×2 (09:06→20:54)
[2022-09-11] MEDS: Senokot S 8.6-50 MG TAB PO SCH ×2 (09:07→20:55)
[2022-09-11] MEDS: Polyethylene Glycol 3350 17 GM Packet PO SCH ×3 (09:07→20:55)
[2022-09-11] MEDS: HYDROcodone/Acetaminophen 10/325 mg Tablet PO SCH ×4 (09:09→21:58)
[2022-09-11] MEDS ORDERED: Vancomycin HCl 750 MG in Sodium Chloride 0.9% 250 ML 250 ML IVPB SCH (10:00)
[2022-09-11] MEDS: Ondansetron PF 4 MG/2 ML Vial IVP PRN (14:56)
[2022-09-11] MEDS: QUEtiapine 200 MG TAB PO SCH (20:55)
[2022-09-11] MEDS: Zolpidem Tartrate 5 MG TAB PO SCH (20:55)
[2022-09-12] MEDS: Ipratropium/Albuterol 3 ML NEB NEB SCH ×4 (00:30→18:48)
[2022-09-12] MEDS: Morphine 2 MG/ML VIAL SLOW IVP PRN ×5 (03:54→19:53)
[2022-09-12] MEDS: Clindamycin/D5W 600 MG in Premix Bag 1 BAG IVPB SCH ×4 (04:53→23:04)
[2022-09-12] MEDS: Levothyroxine 150 MCG TAB PO SCH (04:54)
[2022-09-12] MEDS: Fentanyl 100 MCG/2 ML VIAL SLOW IVP PRN ×6 (04:54→23:49)
[2022-09-12] MEDS: Mometasone 100 MCG/PUFF (1 INHALER) INH SCH ×2 (07:21→18:48)
[2022-09-12 08:00] LABS: #Eosinphils 0.2 thou/uL (0.0-0.7); #Lymphocytes 1.4 thou/uL (1.20-3.40); #Monocytes 0.5 thou/uL (0.11-0.59); #Neutrophils 1.8 thou/uL (1.40-6.50); %Basophils 0.4 % (0.0-1.0); %Eosinophils 6.2 % (0.0-10.0); %Lymphocytes 34.7 % (21.0-51.0); %Neutrophils 46.7 % (42.0-75.0); Hemoglobin 8.8 g/dL (14.0-18.0); Mean Corpuscular Hemoglobin 25.5 pg (27.0-31.0); Mean Corpuscular Volume 77.4 fl (78.0-98.0); Mean Platelet Volume 10.7 fL (7.4-10.4); Platelet Count 174 10x3/uL (130-400); RBC Distribution Width 18.6 % (11.5-14.5); Red Blood Cell (RBC) Count 3.43 mill/uL (4.70-6.10); White Blood Cell (WBC) Count 3.9 10x3/uL (4.8-10.8)
[2022-09-12 08:14] LABS: Anion Gap 13 mmol/L (10-20); BUN (Urea Nitrogen) 6 mg/dL (8.9-20.6); Calc. Creatinine Clearance 146 mL/min (70-130); Calcium 8.7 mg/dL (7.8-10.44); Carbon Dioxide 27 mmol/L (22-29); Chloride 104 mmol/L (98-107); Estimated GFR 112; Glucose 110 mg/dL (70-105); Phosphorus 4.5 mg/dL (2.3-4.7); Sodium 140 mmol/L (136-145)
[2022-09-12] MEDS: Cefepime 2 GM in Sodium Chloride 0.9% 100 ML IVPB SCH ×2 (08:14→21:09)
[2022-09-12] MEDS: Ondansetron PF 4 MG/2 ML Vial IVP PRN (08:17)
[2022-09-12] MEDS: Pregabalin 50 MG CAP PO SCH ×2 (09:51→21:10)
[2022-09-12] MEDS: HYDROcodone/Acetaminophen 10/325 mg Tablet PO SCH ×4 (09:52→21:10)
[2022-09-12] MEDS: DULoxetine 60 MG CAP PO SCH (09:52)
[2022-09-12] MEDS: Polyethylene Glycol 3350 17 GM Packet PO SCH ×3 (09:54→22:02)
[2022-09-12] MEDS: Senokot S 8.6-50 MG TAB PO SCH ×2 (09:55→21:11)
[2022-09-12] MEDS: Lactated Ringer's 1,000 ML IV SCH ×2 (10:38→23:07)
[2022-09-12] MEDS ORDERED: Lidocaine 1% w/Epinephrine 1:100K 20 ML VIAL FS SCH (18:00)
[2022-09-12] MEDS ORDERED: Silver Nitrate Application 1 EACH TOP SCH (18:00)
[2022-09-12] MEDS: QUEtiapine 200 MG TAB PO SCH (21:09)
[2022-09-12] MEDS: Zolpidem Tartrate 5 MG TAB PO SCH (21:10)
[2022-09-12] MEDS: ALPRAZolam 1 MG TAB PO PRN (23:02)
[2022-09-13] MEDS: Ipratropium/Albuterol 3 ML NEB NEB SCH ×2 (01:14→10:35)
[2022-09-13] MEDS: Morphine 2 MG/ML VIAL SLOW IVP PRN ×3 (01:44→09:21)
[2022-09-13] MEDS: Fentanyl 100 MCG/2 ML VIAL SLOW IVP PRN ×3 (04:26→23:21)
[2022-09-13] MEDS: Levothyroxine 150 MCG TAB PO SCH (05:37)
[2022-09-13] MEDS: Clindamycin/D5W 600 MG in Premix Bag 1 BAG IVPB SCH (05:37)
[2022-09-13 06:48] LABS: #Eosinphils 0.2 thou/uL (0.0-0.7); #Lymphocytes 1.3 thou/uL (1.20-3.40); #Monocytes 0.4 thou/uL (0.11-0.59); #Neutrophils 1.8 thou/uL (1.40-6.50); %Eosinophils 5.8 % (0.0-10.0); %Lymphocytes 34.3 % (21.0-51.0); Hemoglobin 8.2 g/dL (14.0-18.0); Mean Corpuscular HGB CONC 32.2 g/dL (32.0-36.0); Mean Corpuscular Volume 77.8 fl (78.0-98.0); Mean Platelet Volume 10.9 fL (7.4-10.4); Platelet Count 160 10x3/uL (130-400); RBC Distribution Width 18.5 % (11.5-14.5); Red Blood Cell (RBC) Count 3.26 mill/uL (4.70-6.10); White Blood Cell (WBC) Count 3.7 10x3/uL (4.8-10.8)
[2022-09-13 07:15] LABS: Anion Gap 11 mmol/L (10-20); BUN (Urea Nitrogen) 8 mg/dL (8.9-20.6); Calc. Creatinine Clearance 148 mL/min (70-130); Calcium 8.6 mg/dL (7.8-10.44); Carbon Dioxide 27 mmol/L (22-29); Chloride 107 mmol/L (98-107); Estimated GFR 112; Glucose 90 mg/dL (70-105); Sodium 141 mmol/L (136-145)
[2022-09-13] MEDS: Cefepime 2 GM in Sodium Chloride 0.9% 100 ML IVPB SCH (08:00)
[2022-09-13] MEDS: Pregabalin 50 MG CAP PO SCH (08:48)
[2022-09-13] MEDS: HYDROcodone/Acetaminophen 10/325 mg Tablet PO SCH ×4 (08:49→20:39)
[2022-09-13] MEDS: DULoxetine 60 MG CAP PO SCH (08:49)
[2022-09-13] MEDS: Senokot S 8.6-50 MG TAB PO SCH ×2 (08:52→20:41)
[2022-09-13] MEDS: Polyethylene Glycol 3350 17 GM Packet PO SCH ×3 (08:52→20:41)
[2022-09-13] MEDS ORDERED: Acetaminophen 500 MG TAB PO PRN (10:26)
[2022-09-13] MEDS ORDERED: Acetaminophen 500 MG TAB PO SCH (10:30)
[2022-09-13] MEDS: Mometasone 100 MCG/PUFF (1 INHALER) INH SCH ×2 (10:36→19:07)
[2022-09-13] MEDS ORDERED: Ipratropium/Albuterol 3 ML NEB NEB PRN (11:52)
[2022-09-13] MEDS ORDERED: Fentanyl 100 MCG/2 ML VIAL SLOW IVP SCH (17:30)
[2022-09-13] MEDS: Zolpidem Tartrate 5 MG TAB PO SCH (20:39)
[2022-09-13] MEDS: QUEtiapine 200 MG TAB PO SCH (20:39)
[2022-09-13] MEDS: Pregabalin 75 MG CAP PO SCH (20:39)
[2022-09-14] MEDS: Levothyroxine 150 MCG TAB PO SCH (05:49)
[2022-09-14] MEDS: Fentanyl 100 MCG/2 ML VIAL SLOW IVP PRN ×2 (06:20→11:55)
[2022-09-14] MEDS: Sodium Chloride 0.9% 1,000 ML IV SCH ×2 (06:29→16:47)
[2022-09-14 06:50] LABS: #Eosinphils 0.2 thou/uL (0.0-0.7); #Lymphocytes 1.3 thou/uL (1.20-3.40); #Monocytes 0.4 thou/uL (0.11-0.59); %Basophils 0.7 % (0.0-1.0); %Eosinophils 4.5 % (0.0-10.0); %Lymphocytes 32.9 % (21.0-51.0); %Monocytes 10.4 % (0.0-10.0); %Neutrophils 51.6 % (42.0-75.0); Hemoglobin 8.1 g/dL (14.0-18.0); Mean Corpuscular Hemoglobin 24.7 pg (27.0-31.0); Mean Corpuscular Volume 77.3 fl (78.0-98.0); Mean Platelet Volume 10.9 fL (7.4-10.4); Platelet Count 169 10x3/uL (130-400); RBC Distribution Width 18.5 % (11.5-14.5); Red Blood Cell (RBC) Count 3.29 mill/uL (4.70-6.10)
[2022-09-14 07:09] LABS: Anion Gap 11 mmol/L (10-20); BUN (Urea Nitrogen) 9 mg/dL (8.9-20.6); Calc. Creatinine Clearance 160 mL/min (70-130); Calcium 8.7 mg/dL (7.8-10.44); Carbon Dioxide 28 mmol/L (22-29); Chloride 106 mmol/L (98-107); Estimated GFR 115; Glucose 107 mg/dL (70-105); Potassium 3.9 mmol/L (3.5-5.1); Sodium 141 mmol/L (136-145)
[2022-09-14] MEDS: Mometasone 100 MCG/PUFF (1 INHALER) INH SCH ×2 (07:52→18:19)
[2022-09-14] MEDS: Pregabalin 75 MG CAP PO SCH ×2 (08:23→21:04)
[2022-09-14] MEDS: Polyethylene Glycol 3350 17 GM Packet PO SCH ×3 (08:24→21:06)
[2022-09-14] MEDS: DULoxetine 60 MG CAP PO SCH (08:24)
[2022-09-14] MEDS: HYDROcodone/Acetaminophen 10/325 mg Tablet PO SCH ×4 (08:24→21:03)
[2022-09-14] MEDS: Senokot S 8.6-50 MG TAB PO SCH ×3 (08:24→21:07)
[2022-09-14] MEDS ORDERED: Bupivacaine/Epinephrine 0.25% 30 ML VIAL ONE (15:34)
[2022-09-14] MEDS ORDERED: fentaNYL PF 100 MCG/2 ML SYRINGE ONE (15:41)
[2022-09-14] MEDS ORDERED: Midazolam HCl 2 mg/2 ml Vial ONE (15:41)
[2022-09-14] MEDS ORDERED: PROPOFOL 200 MG/20 ML VIAL ONE (16:13)
[2022-09-14] MEDS ORDERED: Ondansetron PF 4 MG/2 ML Vial ONE (16:13)
[2022-09-14] MEDS ORDERED: Fentanyl 100 MCG/2 ML VIAL ONE ×2 (17:08→17:26)
[2022-09-14] MEDS ORDERED: Ondansetron HCl/PF 4 MG/2 ML Vial IVP PRN (17:09)
[2022-09-14] MEDS ORDERED: HYDROmorphone 2 MG/ML VIAL SLOW IVP PRN (17:09)
[2022-09-14] MEDS: Zolpidem Tartrate 5 MG TAB PO SCH (21:03)
[2022-09-14] MEDS: QUEtiapine 200 MG TAB PO SCH (21:05)
[2022-09-15] MEDS: Fentanyl 100 MCG/2 ML VIAL SLOW IVP PRN ×4 (02:12→21:30)
[2022-09-15] MEDS: Sodium Chloride 0.9% 1,000 ML IV SCH ×2 (03:00→12:47)
[2022-09-15] MEDS: Levothyroxine 150 MCG TAB PO SCH (05:33)
[2022-09-15 06:28] LABS: #Lymphocytes 0.5 thou/uL (1.20-3.40); #Monocytes 0.1 thou/uL (0.11-0.59); #Neutrophils 3.3 thou/uL (1.40-6.50); %Basophils 0.2 % (0.0-1.0); %Eosinophils 0.1 % (0.0-10.0); %Lymphocytes 13.1 % (21.0-51.0); %Monocytes 3.3 % (0.0-10.0); %Neutrophils 83.3 % (42.0-75.0); Hemoglobin 8.5 g/dL (14.0-18.0); Mean Corpuscular HGB CONC 31.5 g/dL (32.0-36.0); Mean Corpuscular Hemoglobin 24.5 pg (27.0-31.0); Mean Corpuscular Volume 77.7 fl (78.0-98.0); Mean Platelet Volume 10.9 fL (7.4-10.4); Platelet Count 189 10x3/uL (130-400); Red Blood Cell (RBC) Count 3.47 mill/uL (4.70-6.10); White Blood Cell (WBC) Count 3.9 10x3/uL (4.8-10.8)
[2022-09-15 06:49] LABS: Anion Gap 12 mmol/L (10-20); BUN (Urea Nitrogen) 10 mg/dL (8.9-20.6); Calc. Creatinine Clearance 141 mL/min (70-130); Carbon Dioxide 26 mmol/L (22-29); Chloride 106 mmol/L (98-107); Estimated GFR 110; Glucose 290 mg/dL (70-105); Potassium 4.6 mmol/L (3.5-5.1); Sodium 139 mmol/L (136-145)
[2022-09-15] MEDS: Mometasone 100 MCG/PUFF (1 INHALER) INH SCH ×2 (07:32→19:04)
[2022-09-15] MEDS: Pregabalin 75 MG CAP PO SCH ×2 (08:06→21:33)
[2022-09-15] MEDS: DULoxetine 60 MG CAP PO SCH (08:07)
[2022-09-15] MEDS: Polyethylene Glycol 3350 17 GM Packet PO SCH ×3 (08:47→21:33)
[2022-09-15] MEDS: Senokot S 8.6-50 MG TAB PO SCH ×2 (08:48→21:34)
[2022-09-15] MEDS: HYDROcodone/Acetaminophen 10/325 mg Tablet PO SCH ×3 (10:07→17:35)
[2022-09-15] MEDS: Zolpidem Tartrate 5 MG TAB PO SCH (21:34)
[2022-09-15] MEDS: QUEtiapine 200 MG TAB PO SCH (21:34)
[2022-09-16] MEDS: HYDROcodone/Acetaminophen 10/325 mg Tablet PO SCH ×4 (01:55→17:05)
[2022-09-16] MEDS: Fentanyl 100 MCG/2 ML VIAL SLOW IVP PRN ×4 (04:24→18:36)
[2022-09-16] MEDS: Levothyroxine 150 MCG TAB PO SCH (05:16)
[2022-09-16 06:20] LABS: #Eosinphils 0.1 thou/uL (0.0-0.7); #Lymphocytes 1.5 thou/uL (1.20-3.40); #Monocytes 0.3 thou/uL (0.11-0.59); #Neutrophils 2.8 thou/uL (1.40-6.50); %Basophils 0.1 % (0.0-1.0); %Eosinophils 1.3 % (0.0-10.0); %Monocytes 5.7 % (0.0-10.0); %Neutrophils 59.9 % (42.0-75.0); Hemoglobin 6.6 g/dL (14.0-18.0); Mean Corpuscular HGB CONC 31.8 g/dL (32.0-36.0); Mean Corpuscular Hemoglobin 24.7 pg (27.0-31.0); Mean Corpuscular Volume 77.7 fl (78.0-98.0); Mean Platelet Volume 10.7 fL (7.4-10.4); Platelet Count 162 10x3/uL (130-400); RBC Distribution Width 17.8 % (11.5-14.5); Red Blood Cell (RBC) Count 2.69 mill/uL (4.70-6.10); White Blood Cell (WBC) Count 4.7 10x3/uL (4.8-10.8)
[2022-09-16] MEDS: Mometasone 100 MCG/PUFF (1 INHALER) INH SCH ×2 (07:09→18:30)
[2022-09-16] MEDS: Pregabalin 75 MG CAP PO SCH ×2 (09:22→20:29)
[2022-09-16] MEDS: DULoxetine 60 MG CAP PO SCH (09:23)
[2022-09-16] MEDS: Polyethylene Glycol 3350 17 GM Packet PO SCH ×3 (09:26→20:29)
[2022-09-16] MEDS: Senokot S 8.6-50 MG TAB PO SCH ×2 (09:26→20:30)
[2022-09-16 13:20] LABS: #Eosinphils 0.1 thou/uL (0.0-0.7); #Lymphocytes 1.5 thou/uL (1.20-3.40); #Monocytes 0.3 thou/uL (0.11-0.59); #Neutrophils 2.7 thou/uL (1.40-6.50); %Basophils 0.5 % (0.0-1.0); %Eosinophils 2.2 % (0.0-10.0); %Lymphocytes 32.4 % (21.0-51.0); %Monocytes 6.9 % (0.0-10.0); %Neutrophils 58.1 % (42.0-75.0); Hemoglobin 7.4 g/dL (14.0-18.0); Mean Corpuscular HGB CONC 32.1 g/dL (32.0-36.0); Mean Corpuscular Hemoglobin 25.5 pg (27.0-31.0); Mean Corpuscular Volume 79.4 fl (78.0-98.0); Mean Platelet Volume 9.7 fL (7.4-10.4); Platelet Count 184 10x3/uL (130-400); RBC Distribution Width 17.7 % (11.5-14.5); Red Blood Cell (RBC) Count 2.92 mill/uL (4.70-6.10); White Blood Cell (WBC) Count 4.6 10x3/uL (4.8-10.8)
[2022-09-16] MEDS: QUEtiapine 200 MG TAB PO SCH (20:29)
[2022-09-16] MEDS: Zolpidem Tartrate 5 MG TAB PO SCH (20:29)
[2022-09-16] MEDS: ALPRAZolam 1 MG TAB PO PRN (20:29)
[2022-09-17] MEDS: HYDROcodone/Acetaminophen 10/325 mg Tablet PO PRN ×2 (00:01→05:54)
[2022-09-17] MEDS: Ondansetron PF 4 MG/2 ML Vial IVP PRN (01:33)
[2022-09-17] MEDS: Fentanyl 100 MCG/2 ML VIAL SLOW IVP PRN ×2 (01:33→08:22)
[2022-09-17] MEDS: Levothyroxine 150 MCG TAB PO SCH (05:52)
[2022-09-17] MEDS: Mometasone 100 MCG/PUFF (1 INHALER) INH SCH (07:23)
[2022-09-17] MEDS: Pregabalin 75 MG CAP PO SCH (08:23)
[2022-09-17] MEDS: DULoxetine 60 MG CAP PO SCH (08:23)
[2022-09-17 08:30] LABS: #Eosinphils 0.1 thou/uL (0.0-0.7); #Lymphocytes 1.4 thou/uL (1.20-3.40); #Monocytes 0.3 thou/uL (0.11-0.59); #Neutrophils 1.9 thou/uL (1.40-6.50); %Basophils 0.8 % (0.0-1.0); %Eosinophils 3.7 % (0.0-10.0); %Monocytes 7.9 % (0.0-10.0); %Neutrophils 50.6 % (42.0-75.0); Hemoglobin 7.6 g/dL (14.0-18.0); Mean Corpuscular Hemoglobin 25.2 pg (27.0-31.0); Mean Corpuscular Volume 78.9 fl (78.0-98.0); Platelet Count 182 10x3/uL (130-400); RBC Distribution Width 17.4 % (11.5-14.5); Red Blood Cell (RBC) Count 3.03 mill/uL (4.70-6.10); White Blood Cell (WBC) Count 3.8 10x3/uL (4.8-10.8)
[2022-09-17 09:18] VITALS: BP 128/79; TEMP 98.2
[2022-09-17] MEDS: Polyethylene Glycol 3350 17 GM Packet PO SCH (09:56)
[2022-09-17] MEDS: Senokot S 8.6-50 MG TAB PO SCH (09:56)
== END 2022-09-17 10:52 | disposition home or self-care (01) | DRG 516 ==
LOC: ERS 11:01 → T4-A 14:21 → OBSVTOIN 09-08 08:44
PROVIDERS: ADMIT Internal Medicine; ATTEND Internal Medicine
PROC: 0DJ08ZZ Inspection of Upper Intestinal Tract, Via Natural or Artificial Opening Endoscopic (ICD-10-PCS; 2022-09-07)
PROC: 0J980ZZ Drainage of Abdomen Subcutaneous Tissue and Fascia, Open Approach (ICD-10-PCS; principal; 2022-09-08)
PROC: 0W3F0ZZ Control Bleeding in Abdominal Wall, Open Approach (ICD-10-PCS; 2022-09-14)
DX: M79.81 Nontraumatic hematoma of soft tissue (principal); D62 Acute posthemorrhagic anemia; K92.1 Melena; K50.90 Crohn's disease, unspecified, without complications; L08.89 Other specified local infections of the skin and subcutaneous tissue; G43.909 Migraine, unspecified, not intractable, without status migrainosus; K29.50 Unspecified chronic gastritis without bleeding; I10 Essential (primary) hypertension; E78.5 Hyperlipidemia, unspecified; I48.0 Paroxysmal atrial fibrillation; D50.9 Iron deficiency anemia, unspecified; F32.A Depression, unspecified; F41.9 Anxiety disorder, unspecified; K59.00 Constipation, unspecified; G89.4 Chronic pain syndrome; G47.00 Insomnia, unspecified; R04.0 Epistaxis; Z88.6 Allergy status to analgesic agent; Z88.0 Allergy status to penicillin; Z83.79 Family history of other diseases of the digestive system; Z88.8 Allergy status to other drugs, medicaments and biological substances; Z79.899 Other long term (current) drug therapy; Z79.890 Hormone replacement therapy; Z90.49 Acquired absence of other specified parts of digestive tract; Z82.3 Family history of stroke; Z91.013 Allergy to seafood
CPT/HCPCS: 36415; 36430; 71045; 74177; 80048; 80053; 80202; 82274; 83605; 83690; 83735; 84100; 84484; 85014; 85018; 85025; 85049; 85379; 85384; 85610; 85730; 86140; 86850; 86900; 86901; 87070; 87205; 96365; 96366; 96375; 96376; 97139; C9113; G0378; J0692; J0694; J2250; J2272; J2405; J2704; J2800; J3010; J3370; J3370-JW; J3490; J7050; J7120; P9016; Q9967

== ENCOUNTER 2022-10-05 05:31 | Emergency (ER) | payer OTHER, MEDICAID ==
[2022-10-05 06:09] LABS: #Eosinphils 0.1 thou/uL (0.0-0.7); #Lymphocytes 1.2 thou/uL (1.20-3.40); #Monocytes 0.3 thou/uL (0.11-0.59); #Neutrophils 2.6 thou/uL (1.40-6.50); %Basophils 0.8 % (0.0-1.0); %Lymphocytes 27.5 % (21.0-51.0); %Monocytes 6.6 % (0.0-10.0); %Neutrophils 62.1 % (42.0-75.0); Hemoglobin 8.8 g/dL (14.0-18.0); Mean Corpuscular HGB CONC 33.1 g/dL (32.0-36.0); Mean Corpuscular Volume 72.7 fl (78.0-98.0); Mean Platelet Volume 10.5 fL (7.4-10.4); Platelet Count 199 10x3/uL (130-400); RBC Distribution Width 17.7 % (11.5-14.5); Red Blood Cell (RBC) Count 3.65 mill/uL (4.70-6.10); White Blood Cell (WBC) Count 4.2 10x3/uL (4.8-10.8)
[2022-10-05 06:26] LABS: ALT (SGPT) 16 U/L (8-55); AST (SGOT) 11 U/L (5-34); Albumin 3.9 g/dL (3.5-5.0); Alkaline Phosphatase 129 U/L (40-110); Anion Gap 14 mmol/L (10-20); BUN (Urea Nitrogen) 11 mg/dL (8.9-20.6); Bilirubin, Total 0.2 mg/dL (0.2-1.2); Calc. Creatinine Clearance 0 mL/min (70-130); Calcium 9.4 mg/dL (7.8-10.44); Carbon Dioxide 24 mmol/L (22-29); Chloride 110 mmol/L (98-107); Estimated GFR 110; Glucose 143 mg/dL (70-105); Potassium 3.7 mmol/L (3.5-5.1); Protein, Total 6.9 g/dL (6.0-8.3); Sodium 144 mmol/L (136-145)
[2022-10-05] MEDS ORDERED: Iopamidol-370 76% 500 ML 1 ML ONE (08:39)
[2022-10-05] MEDS ORDERED: Ondansetron PF 4 MG/2 ML Vial ONE (10:10)
[2022-10-05] MEDS ORDERED: Morphine 4 MG/ML VIAL ONE (10:10)
== END 2022-10-05 12:47 | disposition home or self-care (01) ==
LOC: ERS 05:31
DX: K92.2 Gastrointestinal hemorrhage, unspecified (principal); D72.819 Decreased white blood cell count, unspecified; I10 Essential (primary) hypertension; E78.5 Hyperlipidemia, unspecified
CPT/HCPCS: 36415; 74177; 80053; 85025; 86850; 86900; 86901; 96374; 96375; J2270; J2405; Q9967

== ENCOUNTER 2022-10-07 05:28 | Emergency (ER) | payer OTHER, MEDICAID ==
[2022-10-07 06:02] LABS: Bacteria/HPF None Seen HPF (None Seen); Bilirubin Negative (Negative); Blood, Urine Trace (Negative); Clarity Clear (Clear); Glucose, Urine (Dipstick) Normal (Negative); Ketone, Urine Negative (Negative); Leukocyte Negative Leu/uL (Negative); Nitrite Negative (Negative); Protein, Urine (Dipstick) 20 mg/dL (Neg-Trace); Specific Gravity, Urine 1.018 (1.002-1.036); Squamous Epithelial None Seen HPF (0-3); Urobilinogen Normal mg/dL (Less than 2); WBC/HPF 0-3 HPF (0-3)
[2022-10-07 07:21] LABS: #Eosinphils 0.2 thou/uL (0.0-0.7); #Lymphocytes 1.1 thou/uL (1.20-3.40); #Monocytes 0.4 thou/uL (0.11-0.59); #Neutrophils 3.5 thou/uL (1.40-6.50); %Basophils 0.4 % (0.0-1.0); %Eosinophils 2.9 % (0.0-10.0); %Lymphocytes 21.4 % (21.0-51.0); %Monocytes 7.7 % (0.0-10.0); %Neutrophils 67.6 % (42.0-75.0); Hemoglobin 9.1 g/dL (14.0-18.0); Mean Corpuscular HGB CONC 34.1 g/dL (32.0-36.0); Mean Corpuscular Hemoglobin 24.2 pg (27.0-31.0); Platelet Count 257 10x3/uL (130-400); RBC Distribution Width 17.6 % (11.5-14.5); Red Blood Cell (RBC) Count 3.75 mill/uL (4.70-6.10); White Blood Cell (WBC) Count 5.2 10x3/uL (4.8-10.8)
[2022-10-07 07:38] LABS: ALT (SGPT) 15 U/L (8-55); AST (SGOT) 11 U/L (5-34); Albumin 4.1 g/dL (3.5-5.0); Alkaline Phosphatase 123 U/L (40-110); Anion Gap 13 mmol/L (10-20); BUN (Urea Nitrogen) 10 mg/dL (8.9-20.6); Bilirubin, Total 0.3 mg/dL (0.2-1.2); Calc. Creatinine Clearance 0 mL/min (70-130); Calcium 9.4 mg/dL (7.8-10.44); Carbon Dioxide 29 mmol/L (22-29); Chloride 104 mmol/L (98-107); Estimated GFR 109; Globulin 2.9 g/dL (2.4-3.5); Glucose 103 mg/dL (70-105); Potassium 3.9 mmol/L (3.5-5.1); Sodium 142 mmol/L (136-145)
[2022-10-07] MEDS ORDERED: Dicyclomine 20 MG/2 ML VIAL ONE (08:06)
[2022-10-07] MEDS ORDERED: Ondansetron PF 4 MG/2 ML Vial ONE (08:06)
[2022-10-07 08:40] LABS: Prothrombin Time 13.9 sec (12.0-14.7)
[2022-10-07 08:41] LABS: PTT 28.8 sec (22.9-36.1)
[2022-10-07] MEDS ORDERED: Morphine 4 MG/ML VIAL ONE (09:13)
== END 2022-10-07 09:42 | disposition home or self-care (01) ==
LOC: ERS 05:28
DX: K50.90 Crohn's disease, unspecified, without complications (principal); K92.2 Gastrointestinal hemorrhage, unspecified; E78.5 Hyperlipidemia, unspecified; I10 Essential (primary) hypertension
CPT/HCPCS: 80053; 81003; 81015; 85025; 85610; 85730; 86850; 86900; 86901; 96372; 96374; 96375; J2270; J2405

== ENCOUNTER 2022-10-09 07:24 | Emergency (ER) | payer OTHER, MEDICAID ==
[2022-10-09] MEDS ORDERED: Dicyclomine 20 MG/2 ML VIAL ONE (07:50)
[2022-10-09] MEDS ORDERED: Ondansetron ODT 4 MG TAB ONE (07:50)
[2022-10-09] MEDS ORDERED: Acetaminophen 500 MG TAB ONE (07:51)
[2022-10-09 08:34] LABS: #Eosinphils 0.2 thou/uL (0.0-0.7); #Lymphocytes 1.4 thou/uL (1.20-3.40); #Monocytes 0.5 thou/uL (0.11-0.59); #Neutrophils 5.1 thou/uL (1.40-6.50); %Basophils 0.1 % (0.0-1.0); %Eosinophils 3.1 % (0.0-10.0); %Lymphocytes 19.1 % (21.0-51.0); %Monocytes 7.1 % (0.0-10.0); %Neutrophils 70.5 % (42.0-75.0); Hemoglobin 8.8 g/dL (14.0-18.0); Mean Corpuscular HGB CONC 31.5 g/dL (32.0-36.0); Mean Corpuscular Hemoglobin 22.8 pg (27.0-31.0); Mean Corpuscular Volume 72.5 fl (78.0-98.0); Mean Platelet Volume 9.8 fL (7.4-10.4); Platelet Count 283 10x3/uL (130-400); RBC Distribution Width 17.8 % (11.5-14.5); Red Blood Cell (RBC) Count 3.84 mill/uL (4.70-6.10); White Blood Cell (WBC) Count 7.2 10x3/uL (4.8-10.8)
== END 2022-10-09 09:22 | disposition home or self-care (01) ==
LOC: ERS 07:24
DX: K92.2 Gastrointestinal hemorrhage, unspecified (principal); K50.90 Crohn's disease, unspecified, without complications; E78.5 Hyperlipidemia, unspecified; I10 Essential (primary) hypertension
CPT/HCPCS: 36415; 85025; Q0162

== ENCOUNTER 2022-10-09 16:16 | Inpatient (IN) | payer OTHER, MEDICAID ==
[2022-10-09] MEDS ORDERED: Dexamethasone 10 MG/ML VIAL ONE ×2 (17:44→18:51)
[2022-10-09] MEDS ORDERED: Acetaminophen 325 MG TAB PO PRN (18:04)
[2022-10-09] MEDS ORDERED: Morphine 4 MG/ML VIAL ONE (19:18)
[2022-10-09] MEDS ORDERED: Polyethylene Glycol 3350 17 GM Packet PO SCH (20:00)
[2022-10-09] MEDS: Zolpidem Tartrate 5 MG TAB PO SCH (21:41)
[2022-10-09] MEDS: Pregabalin 75 MG CAP PO SCH (21:41)
[2022-10-09] MEDS: Pantoprazole 40 MG VIAL IVP SCH (21:41)
[2022-10-09] MEDS ORDERED: QUEtiapine 200 MG TAB PO SCH (22:00)
[2022-10-09 22:33] VITALS: BMI 28.2
[2022-10-09] MEDS: Morphine 4 MG/ML VIAL SLOW IVP PRN (23:27)
[2022-10-10] MEDS: Morphine 4 MG/ML VIAL SLOW IVP PRN ×4 (03:56→22:27)
[2022-10-10] MEDS: Levothyroxine 150 MCG TAB PO SCH (05:41)
[2022-10-10] MEDS: ALPRAZolam 1 MG TAB PO PRN ×2 (05:41→15:34)
[2022-10-10 07:26] LABS: #Lymphocytes 0.8 thou/uL (1.20-3.40); #Monocytes 0.1 thou/uL (0.11-0.59); #Neutrophils 5.5 thou/uL (1.40-6.50); %Basophils 0.7 % (0.0-1.0); %Eosinophils 0.4 % (0.0-10.0); %Lymphocytes 12.4 % (21.0-51.0); %Monocytes 1.7 % (0.0-10.0); %Neutrophils 84.8 % (42.0-75.0); Hemoglobin 8.6 g/dL (14.0-18.0); Mean Corpuscular HGB CONC 31.2 g/dL (32.0-36.0); Mean Corpuscular Hemoglobin 22.8 pg (27.0-31.0); Mean Corpuscular Volume 73.1 fl (78.0-98.0); Mean Platelet Volume 9.4 fL (7.4-10.4); Platelet Count 312 10x3/uL (130-400); RBC Distribution Width 17.7 % (11.5-14.5); Red Blood Cell (RBC) Count 3.74 mill/uL (4.70-6.10); White Blood Cell (WBC) Count 6.4 10x3/uL (4.8-10.8)
[2022-10-10] MEDS: DULoxetine 30 MG CAP PO SCH (07:32)
[2022-10-10] MEDS: Polyethylene Glycol 3350 17 GM Packet PO SCH (07:32)
[2022-10-10] MEDS: Pregabalin 75 MG CAP PO SCH ×2 (07:32→20:51)
[2022-10-10] MEDS: Pantoprazole 40 MG VIAL IVP SCH ×2 (07:33→20:51)
[2022-10-10 07:47] LABS: ALT (SGPT) 28 U/L (8-55); AST (SGOT) 17 U/L (5-34); Alkaline Phosphatase 120 U/L (40-110); Anion Gap 16 mmol/L (10-20); BUN (Urea Nitrogen) 14 mg/dL (8.9-20.6); Bilirubin, Total 0.4 mg/dL (0.2-1.2); Calc. Creatinine Clearance 148 mL/min (70-130); Calcium 9.6 mg/dL (7.8-10.44); Carbon Dioxide 25 mmol/L (22-29); Chloride 102 mmol/L (98-107); Estimated GFR 110; Glucose 136 mg/dL (70-105); Potassium 4.8 mmol/L (3.5-5.1); Sodium 138 mmol/L (136-145)
[2022-10-10] MEDS ORDERED: HYDROcodone/Acetaminophen 5/325 mg Tablet PO PRN (09:20)
[2022-10-10] MEDS ORDERED: oxyCODONE 5 MG TAB PO PRN (11:10)
[2022-10-10] MEDS ORDERED: GoLYTELY 4,000 ml Bottle PO SCH ×2 (11:15)
[2022-10-10] MEDS ORDERED: Mineral Oil ENEMA PR SCH (11:15)
[2022-10-10] MEDS: Ondansetron PF 4 MG/2 ML Vial IVP PRN (16:14)
[2022-10-10 18:07] LABS: Mean Corpuscular HGB CONC 31.9 g/dL (32.0-36.0); Mean Corpuscular Hemoglobin 23.2 pg (27.0-31.0); Mean Corpuscular Volume 72.8 fl (78.0-98.0); Platelet Count 251 10x3/uL (130-400); RBC Distribution Width 18.3 % (11.5-14.5); Red Blood Cell (RBC) Count 3.46 mill/uL (4.70-6.10); White Blood Cell (WBC) Count 11.7 10x3/uL (4.8-10.8)
[2022-10-10 19:28] LABS: Anisocytosis SLIGHT = 6-15 cells (100X) (0-5/hpf); Band 1 % (5-11); Lymphocytes 5 % (21-51); MDiff Complete? YES; Monocytes 4 % (0-10); Neutrophil 90 % (42-75); Nucleated RBC 1 % (0); Platelet Morphology Comment Appears Adequate; Polychromasia SLIGHT = 2-3 cells (100X) (0-2/hpf)
[2022-10-10 20:05] LABS: Campy jejuni + coli by PCR Negative (Negative); STEC Shiga Toxin 1+2 Negative (Negative); Salmonella spp. by PCR Negative (Negative); Shigella spp + EIEC by PCR Negative (Negative)
[2022-10-10] MEDS: QUEtiapine 200 MG TAB PO SCH (20:52)
[2022-10-10] MEDS: Zolpidem Tartrate 5 MG TAB PO SCH (20:52)
[2022-10-10] MEDS: Sodium Chloride 0.9% 1,000 ML IV SCH (22:27)
[2022-10-11] MEDS: ALPRAZolam 1 MG TAB PO PRN ×2 (00:14→07:45)
[2022-10-11] MEDS: Morphine 4 MG/ML VIAL SLOW IVP PRN ×4 (05:27→21:24)
[2022-10-11] MEDS: Levothyroxine 150 MCG TAB PO SCH (05:27)
[2022-10-11] MEDS: DULoxetine 30 MG CAP PO SCH (07:46)
[2022-10-11] MEDS: Pantoprazole 40 MG VIAL IVP SCH ×2 (07:46→21:25)
[2022-10-11] MEDS: Pregabalin 75 MG CAP PO SCH ×2 (07:46→21:25)
[2022-10-11 07:58] LABS: #Lymphocytes 1.5 thou/uL (1.20-3.40); #Monocytes 0.6 thou/uL (0.11-0.59); #Neutrophils 4.6 thou/uL (1.40-6.50); %Basophils 0.1 % (0.0-1.0); %Eosinophils 0.7 % (0.0-10.0); %Lymphocytes 21.6 % (21.0-51.0); %Monocytes 9.1 % (0.0-10.0); %Neutrophils 68.4 % (42.0-75.0); Hemoglobin 7.5 g/dL (14.0-18.0); Mean Corpuscular HGB CONC 31.6 g/dL (32.0-36.0); Mean Corpuscular Volume 72.6 fl (78.0-98.0); Mean Platelet Volume 8.8 fL (7.4-10.4); Platelet Count 302 10x3/uL (130-400); Red Blood Cell (RBC) Count 3.26 mill/uL (4.70-6.10); White Blood Cell (WBC) Count 6.7 10x3/uL (4.8-10.8)
[2022-10-11 08:13] LABS: Anion Gap 13 mmol/L (10-20); BUN (Urea Nitrogen) 24 mg/dL (8.9-20.6); Calc. Creatinine Clearance 138 mL/min (70-130); Calcium 8.7 mg/dL (7.8-10.44); Carbon Dioxide 28 mmol/L (22-29); Chloride 104 mmol/L (98-107); Estimated GFR 107; Glucose 93 mg/dL (70-105); Potassium 3.9 mmol/L (3.5-5.1); Sodium 141 mmol/L (136-145)
[2022-10-11] MEDS: Ondansetron PF 4 MG/2 ML Vial IVP PRN ×2 (09:23→16:08)
[2022-10-11] MEDS: Sodium Chloride 0.9% 1,000 ML IV SCH (09:26)
[2022-10-11] MEDS: Polyethylene Glycol 3350 17 GM Packet PO SCH (09:35)
[2022-10-11] MEDS ORDERED: Midazolam HCl 2 mg/2 ml Vial ONE (11:47)
[2022-10-11] MEDS ORDERED: Metoclopramide HCl 10 MG/2 ML VIAL ONE (12:06)
[2022-10-11] MEDS ORDERED: Ondansetron PF 4 MG/2 ML Vial ONE (12:06)
[2022-10-11] MEDS ORDERED: PROPOFOL 200 MG/20 ML VIAL ONE (12:06)
[2022-10-11] MEDS ORDERED: Succinylcholine Chloride 100 MG/5 ML SYRINGE FS ONE (12:06)
[2022-10-11] MEDS ORDERED: Lidocaine 1% PF 5 ML VIAL ONE (12:06)
[2022-10-11] MEDS ORDERED: Promethazine HCl 25 MG/ML VIAL IM PRN (12:39)
[2022-10-11] MEDS ORDERED: Ondansetron HCl/PF 4 MG/2 ML Vial IVP PRN (12:39)
[2022-10-11] MEDS ORDERED: Fentanyl 100 MCG/2 ML VIAL ONE (12:45)
[2022-10-11] MEDS: Zolpidem Tartrate 5 MG TAB PO SCH (21:25)
[2022-10-11] MEDS: QUEtiapine 200 MG TAB PO SCH (21:25)
[2022-10-12] MEDS: Ondansetron ODT 4 MG TAB PO PRN (04:11)
[2022-10-12] MEDS: Morphine 4 MG/ML VIAL SLOW IVP PRN ×5 (04:11→20:51)
[2022-10-12] MEDS: Levothyroxine 150 MCG TAB PO SCH (05:30)
[2022-10-12] MEDS: Polyethylene Glycol 3350 17 GM Packet PO SCH (08:26)
[2022-10-12] MEDS: Pregabalin 75 MG CAP PO SCH ×2 (08:26→20:46)
[2022-10-12] MEDS: DULoxetine 30 MG CAP PO SCH (08:27)
[2022-10-12] MEDS: Pantoprazole 40 MG VIAL IVP SCH ×2 (08:27→20:45)
[2022-10-12 08:45] LABS: #Eosinphils 0.1 thou/uL (0.0-0.7); #Lymphocytes 1.8 thou/uL (1.20-3.40); #Monocytes 0.5 thou/uL (0.11-0.59); #Neutrophils 3.3 thou/uL (1.40-6.50); %Basophils 0.8 % (0.0-1.0); %Eosinophils 2.3 % (0.0-10.0); %Lymphocytes 31.4 % (21.0-51.0); %Monocytes 8.3 % (0.0-10.0); %Neutrophils 57.2 % (42.0-75.0); Hemoglobin 9.1 g/dL (14.0-18.0); Mean Corpuscular HGB CONC 31.9 g/dL (32.0-36.0); Mean Corpuscular Hemoglobin 23.7 pg (27.0-31.0); Mean Corpuscular Volume 74.3 fl (78.0-98.0); Mean Platelet Volume 9.6 fL (7.4-10.4); Platelet Count 298 10x3/uL (130-400); Red Blood Cell (RBC) Count 3.84 mill/uL (4.70-6.10); White Blood Cell (WBC) Count 5.8 10x3/uL (4.8-10.8)
[2022-10-12 09:01] LABS: Anion Gap 16 mmol/L (10-20); BUN (Urea Nitrogen) 20 mg/dL (8.9-20.6); Calc. Creatinine Clearance 135 mL/min (70-130); Calcium 8.8 mg/dL (7.8-10.44); Carbon Dioxide 25 mmol/L (22-29); Chloride 102 mmol/L (98-107); Estimated GFR 104; Glucose 81 mg/dL (70-105); Potassium 3.7 mmol/L (3.5-5.1); Sodium 139 mmol/L (136-145)
[2022-10-12] MEDS: Ondansetron PF 4 MG/2 ML Vial IVP PRN ×2 (10:21→16:46)
[2022-10-12] MEDS: Zolpidem Tartrate 5 MG TAB PO SCH (20:46)
[2022-10-12] MEDS: QUEtiapine 200 MG TAB PO SCH (20:46)
[2022-10-12] MEDS ORDERED: FLU VACC QS2022-23(6MOS UP)/PF 60 MCG/0.5 ML SYRINGE IM ONE (23:00)
[2022-10-13] MEDS: ALPRAZolam 1 MG TAB PO PRN ×3 (00:51→21:52)
[2022-10-13] MEDS: Morphine 4 MG/ML VIAL SLOW IVP PRN ×4 (00:52→12:34)
[2022-10-13] MEDS: Ondansetron ODT 4 MG TAB PO PRN ×2 (04:50→16:45)
[2022-10-13] MEDS: Levothyroxine 150 MCG TAB PO SCH (04:55)
[2022-10-13 07:32] LABS: Anion Gap 16 mmol/L (10-20); BUN (Urea Nitrogen) 15 mg/dL (8.9-20.6); Calc. Creatinine Clearance 150 mL/min (70-130); Calcium 8.6 mg/dL (7.8-10.44); Carbon Dioxide 22 mmol/L (22-29); Chloride 102 mmol/L (98-107); Estimated GFR 110; Glucose 82 mg/dL (70-105); Potassium 3.7 mmol/L (3.5-5.1); Sodium 136 mmol/L (136-145)
[2022-10-13] MEDS: Polyethylene Glycol 3350 17 GM Packet PO SCH (08:21)
[2022-10-13] MEDS: Pregabalin 75 MG CAP PO SCH ×2 (08:22→21:51)
[2022-10-13] MEDS: Pantoprazole 40 MG VIAL IVP SCH ×2 (08:22→21:52)
[2022-10-13] MEDS: DULoxetine 30 MG CAP PO SCH (08:23)
[2022-10-13 10:44] LABS: Band 4 % (5-11); Eosinophils 2 % (0-10); Hemoglobin 8.5 g/dL (14.0-18.0); Hypochromia SLIGHT = 6-15 cells (100X) (0-5/hpf); Lymphocytes 24 % (21-51); MDiff Complete? YES; Mean Corpuscular HGB CONC 30.6 g/dL (32.0-36.0); Mean Corpuscular Hemoglobin 22.8 pg (27.0-31.0); Mean Corpuscular Volume 74.3 fl (78.0-98.0); Mean Platelet Volume 10.4 fL (7.4-10.4); Microcytosis SLIGHT = 6-15 cells (100X) (0-5/hpf); Monocytes 2 % (0-10); Neutrophil 68 % (42-75); Ovalocytes SLIGHT = 2-5 cells (100X) (0-1/hpf); Platelet Count 250 10x3/uL (130-400); Platelet Morphology Comment Appears Adequate; Polychromasia SLIGHT = 2-3 cells (100X) (0-2/hpf); RBC Distribution Width 19.3 % (11.5-14.5); Red Blood Cell (RBC) Count 3.73 mill/uL (4.70-6.10); White Blood Cell (WBC) Count 5.9 10x3/uL (4.8-10.8)
[2022-10-13] MEDS: HYDROcodone/Acetaminophen 10/325 mg Tablet PO PRN ×2 (16:43→21:52)
[2022-10-13] MEDS: QUEtiapine 200 MG TAB PO SCH (21:50)
[2022-10-13] MEDS: Zolpidem Tartrate 5 MG TAB PO SCH (21:52)
[2022-10-14] MEDS: HYDROcodone/Acetaminophen 10/325 mg Tablet PO PRN ×2 (03:12→09:13)
[2022-10-14] MEDS ORDERED: Dicyclomine 20 MG TAB PO SCH (03:15)
[2022-10-14] MEDS: Levothyroxine 150 MCG TAB PO SCH (05:53)
[2022-10-14] MEDS ORDERED: Morphine 2 MG/ML VIAL SLOW IVP SCH (06:00)
[2022-10-14 07:45] LABS: #Eosinphils 0.1 thou/uL (0.0-0.7); #Lymphocytes 1.1 thou/uL (1.20-3.40); #Monocytes 0.5 thou/uL (0.11-0.59); #Neutrophils 1.9 thou/uL (1.40-6.50); %Basophils 0.3 % (0.0-1.0); %Eosinophils 3.1 % (0.0-10.0); %Lymphocytes 30.2 % (21.0-51.0); %Monocytes 12.5 % (0.0-10.0); %Neutrophils 53.8 % (42.0-75.0); Hemoglobin 8.6 g/dL (14.0-18.0); Mean Corpuscular HGB CONC 29.6 g/dL (32.0-36.0); Mean Corpuscular Hemoglobin 22.5 pg (27.0-31.0); Mean Corpuscular Volume 76.2 fl (78.0-98.0); Mean Platelet Volume 9.6 fL (7.4-10.4); Platelet Count 313 10x3/uL (130-400); RBC Distribution Width 19.8 % (11.5-14.5); Red Blood Cell (RBC) Count 3.81 mill/uL (4.70-6.10); White Blood Cell (WBC) Count 3.6 10x3/uL (4.8-10.8)
[2022-10-14 07:52] LABS: Anion Gap 15 mmol/L (10-20); BUN (Urea Nitrogen) 12 mg/dL (8.9-20.6); Calc. Creatinine Clearance 123 mL/min (70-130); Calcium 8.6 mg/dL (7.8-10.44); Carbon Dioxide 22 mmol/L (22-29); Chloride 103 mmol/L (98-107); Estimated GFR 93; Glucose 143 mg/dL (70-105); Potassium 3.6 mmol/L (3.5-5.1); Sodium 136 mmol/L (136-145)
[2022-10-14 08:08] LABS: Hypochromia SLIGHT = 6-15 cells (100X) (0-5/hpf); MDiff Complete? YES; Microcytosis SLIGHT = 6-15 cells (100X) (0-5/hpf); Platelet Morphology Comment Appears Adequate; Polychromasia SLIGHT = 2-3 cells (100X) (0-2/hpf)
[2022-10-14 08:45] VITALS: BP 137/76; TEMP 98.9
[2022-10-14] MEDS: Pregabalin 75 MG CAP PO SCH (09:09)
[2022-10-14] MEDS: DULoxetine 30 MG CAP PO SCH (09:10)
[2022-10-14] MEDS: Pantoprazole 40 MG VIAL IVP SCH (09:10)
[2022-10-14] MEDS: Polyethylene Glycol 3350 17 GM Packet PO SCH (09:11)
[2022-10-14] MEDS: ALPRAZolam 1 MG TAB PO PRN (09:13)
== END 2022-10-14 12:38 | disposition home or self-care (01) | DRG 378 ==
LOC: ERS 16:16 → T4-A 17:38 → OBSVTOIN 10-11 08:44
PROVIDERS: ADMIT Hospitalist; ATTEND Internal Medicine
PROC: 30233N1 Transfusion of Nonautologous Red Blood Cells into Peripheral Vein, Percutaneous Approach (ICD-10-PCS; principal; 2022-10-11)
PROC: 0DB78ZX Excision of Stomach, Pylorus, Via Natural or Artificial Opening Endoscopic, Diagnostic (ICD-10-PCS; 2022-10-11)
DX: K92.0 Hematemesis (principal); D62 Acute posthemorrhagic anemia; K50.90 Crohn's disease, unspecified, without complications; F11.20 Opioid dependence, uncomplicated; I10 Essential (primary) hypertension; E78.5 Hyperlipidemia, unspecified; I48.0 Paroxysmal atrial fibrillation; G43.909 Migraine, unspecified, not intractable, without status migrainosus; E03.9 Hypothyroidism, unspecified; F41.9 Anxiety disorder, unspecified; F32.A Depression, unspecified; K59.03 Drug induced constipation; Z88.0 Allergy status to penicillin; Z88.8 Allergy status to other drugs, medicaments and biological substances; Z79.890 Hormone replacement therapy; Z90.49 Acquired absence of other specified parts of digestive tract
CPT/HCPCS: 36415; 36430; 74018; 80048; 80053; 83630; 84145; 85025; 85652; 86140; 86850; 86900; 86901; 87324; 87449; 87505; 88305; 96374; 96375; 96376; 99284; C9113; G0378; J1100; J2250; J2270; J2272; J2405; J2704; J2765; J3010; J7050; P9016; Q0162; U0003; U0005

== ENCOUNTER 2022-11-01 13:03 | Emergency (ER) | payer MEDICAID, OTHER ==
[2022-11-01] MEDS ORDERED: Dexameth. Sod Phosp. 10 MG/ML (CHEMO USE ONLY) ONE (14:01)
[2022-11-01] MEDS ORDERED: Morphine 4 MG/ML VIAL ONE (14:01)
== END 2022-11-01 14:23 | disposition home or self-care (01) ==
LOC: ERS 13:03
DX: M54.50 Low back pain, unspecified (principal); G89.29 Other chronic pain; I10 Essential (primary) hypertension; E78.00 Pure hypercholesterolemia, unspecified; I48.91 Unspecified atrial fibrillation; Z79.01 Long term (current) use of anticoagulants; Z79.899 Other long term (current) drug therapy
CPT/HCPCS: 96372; 99283; J1100; J2270

== ENCOUNTER 2022-11-02 04:42 | Emergency (ER) | payer OTHER ==
[2022-11-02 05:33] LABS: #Lymphocytes 0.8 thou/uL (1.20-3.40); #Monocytes 0.3 thou/uL (0.11-0.59); #Neutrophils 5.3 thou/uL (1.40-6.50); %Basophils 0.4 % (0.0-1.0); %Eosinophils 0.1 % (0.0-10.0); %Lymphocytes 12.9 % (21.0-51.0); %Monocytes 5.2 % (0.0-10.0); %Neutrophils 81.4 % (42.0-75.0); Hemoglobin 9.2 g/dL (14.0-18.0); INR-International Normal Ratio 1.1; Mean Corpuscular HGB CONC 31.9 g/dL (32.0-36.0); Mean Corpuscular Hemoglobin 22.4 pg (27.0-31.0); Mean Corpuscular Volume 70.1 fl (78.0-98.0); Mean Platelet Volume 10.8 fL (7.4-10.4); PTT 24.4 sec (22.9-36.1); Platelet Count 257 10x3/uL (130-400); Prothrombin Time 14.3 sec (12.0-14.7); RBC Distribution Width 18.4 % (11.5-14.5); White Blood Cell (WBC) Count 6.5 10x3/uL (4.8-10.8)
[2022-11-02 05:47] LABS: ALT (SGPT) 10 U/L (8-55); AST (SGOT) 10 U/L (5-34); Albumin 4.5 g/dL (3.5-5.0); Alkaline Phosphatase 132 U/L (40-110); Anion Gap 15 mmol/L (10-20); BUN (Urea Nitrogen) 8 mg/dL (8.9-20.6); Bilirubin, Total 0.3 mg/dL (0.2-1.2); Calc. Creatinine Clearance 0 mL/min (70-130); Calcium 9.8 mg/dL (7.8-10.44); Carbon Dioxide 25 mmol/L (22-29); Chloride 107 mmol/L (98-107); Estimated GFR 96; Globulin 2.7 g/dL (2.4-3.5); Glucose 155 mg/dL (70-105); Lipase 21 U/L (8-78); Protein, Total 7.2 g/dL (6.0-8.3); Sodium 143 mmol/L (136-145)
[2022-11-02] MEDS ORDERED: Morphine 4 MG/ML VIAL ONE (06:24)
[2022-11-02] MEDS ORDERED: predniSONE 20 MG TAB ONE (06:31)
[2022-11-02] MEDS ORDERED: Lidocaine Viscous Sol 2% 15 ml UD Cup ONE (07:13)
[2022-11-02] MEDS ORDERED: Mag-Al 1200 mg/1200 mg/30 ML UDCUP ONE (07:13)
== END 2022-11-02 07:34 | disposition home or self-care (01) ==
LOC: ERS 04:42
DX: K92.2 Gastrointestinal hemorrhage, unspecified (principal); E78.5 Hyperlipidemia, unspecified; I10 Essential (primary) hypertension; Z79.01 Long term (current) use of anticoagulants
CPT/HCPCS: 36415; 80053; 82274; 83690; 85025; 85610; 85730; 86850; 86900; 86901; 96361; 96365; J2270; J7512

== ENCOUNTER 2022-11-27 00:22 | Inpatient (IN) | payer OTHER, MEDICAID ==
[2022-11-27 01:57] LABS: Hemoglobin 10.6 g/dL (14.0-18.0); Mean Corpuscular HGB CONC 31.9 g/dL (32.0-36.0); Mean Corpuscular Hemoglobin 21.1 pg (27.0-31.0); Mean Corpuscular Volume 66.1 fl (78.0-98.0); RBC Distribution Width 19.2 % (11.5-14.5); Red Blood Cell (RBC) Count 5.02 mill/uL (4.70-6.10); White Blood Cell (WBC) Count 6.3 10x3/uL (4.8-10.8)
[2022-11-27] MEDS ORDERED: Pantoprazole 40 MG VIAL ONE (02:13)
[2022-11-27] MEDS ORDERED: Morphine 4 MG/ML VIAL ONE (02:13)
[2022-11-27] MEDS ORDERED: Ondansetron PF 4 MG/2 ML Vial ONE (02:13)
[2022-11-27 02:17] LABS: Anion Gap 17 mmol/L (10-20); BUN (Urea Nitrogen) 21 mg/dL (8.9-20.6); Bilirubin, Total 0.4 mg/dL (0.2-1.2); Calc. Creatinine Clearance 0 mL/min (70-130); Carbon Dioxide 18 mmol/L (22-29); Chloride 108 mmol/L (98-107); Estimated GFR 76; Glucose 112 mg/dL (70-105); Potassium 3.6 mmol/L (3.5-5.1); Protein, Total 7.6 g/dL (6.0-8.3); Sodium 139 mmol/L (136-145)
[2022-11-27 02:18] LABS: ALT (SGPT) Less than 7 U/L (8-55); AST (SGOT) 10 U/L (5-34); Albumin 4.7 g/dL (3.5-5.0); Alkaline Phosphatase 120 U/L (40-110); CK (CPK) 49 U/L (30-200); Globulin 2.9 g/dL (2.4-3.5); Lipase 25 U/L (8-78)
[2022-11-27 02:30] LABS: #Lymphocytes 1.6 thou/uL (1.20-3.40); #Monocytes 0.5 thou/uL (0.11-0.59); #Neutrophils 4.2 thou/uL (1.40-6.50); %Basophils 0.6 % (0.0-1.0); %Eosinophils 0.3 % (0.0-10.0); %Lymphocytes 24.8 % (21.0-51.0); %Monocytes 8.2 % (0.0-10.0); %Neutrophils 66.1 % (42.0-75.0); Anisocytosis SLIGHT = 6-15 cells (100X) (0-5/hpf); Large Platelets SLIGHT; MDiff Complete? YES; Mean Platelet Volume 7.1 fL (7.4-10.4); Ovalocytes SLIGHT = 2-5 cells (100X) (0-1/hpf); Platelet Count 183 10x3/uL (130-400); Platelet Morphology Comment Appears Adequate; Polychromasia SLIGHT = 2-3 cells (100X) (0-2/hpf)
[2022-11-27 04:51] VITALS: BMI 26.7
[2022-11-27] MEDS: Morphine 4 MG/ML VIAL SLOW IVP PRN ×2 (05:00→08:52)
[2022-11-27] MEDS: Lactated Ringer's 1,000 ML IV SCH ×3 (05:14→20:39)
[2022-11-27] MEDS: Pantoprazole 40 MG VIAL IVP SCH ×3 (08:54→20:34)
[2022-11-27 09:16] LABS: #Eosinphils 0.1 thou/uL (0.0-0.7); #Lymphocytes 1.9 thou/uL (1.20-3.40); #Monocytes 0.5 thou/uL (0.11-0.59); #Neutrophils 2.5 thou/uL (1.40-6.50); %Basophils 0.7 % (0.0-1.0); %Eosinophils 1.3 % (0.0-10.0); %Lymphocytes 37.6 % (21.0-51.0); %Monocytes 10.2 % (0.0-10.0); %Neutrophils 50.2 % (42.0-75.0); Hemoglobin 9.2 g/dL (14.0-18.0); Mean Corpuscular HGB CONC 30.6 g/dL (32.0-36.0); Mean Corpuscular Hemoglobin 20.3 pg (27.0-31.0); Mean Corpuscular Volume 66.4 fl (78.0-98.0); Mean Platelet Volume 6.7 fL (7.4-10.4); Platelet Count 172 10x3/uL (130-400); RBC Distribution Width 18.4 % (11.5-14.5); Red Blood Cell (RBC) Count 4.54 mill/uL (4.70-6.10); White Blood Cell (WBC) Count 4.9 10x3/uL (4.8-10.8)
[2022-11-27 09:50] LABS: Hypochromia MODERATE=16-30 cells (100X) (0-5/hpf); MDiff Complete? YES; Microcytosis MODERATE=15-30 cells (100X) (0-5/hpf); Ovalocytes SLIGHT = 2-5 cells (100X) (0-1/hpf); Platelet Morphology Comment Appears Adequate; Polychromasia SLIGHT = 2-3 cells (100X) (0-2/hpf)
[2022-11-27] MEDS: Morphine 2 MG/ML VIAL SLOW IVP PRN ×7 (11:40→23:04)
[2022-11-27] MEDS: Ondansetron PF 4 MG/2 ML Vial IVP PRN (13:30)
[2022-11-27 14:21] LABS: Hemoglobin 8.9 g/dL (14.0-18.0)
[2022-11-27] MEDS ORDERED: HYDROcodone/Acetaminophen 10/325 mg Tablet PO PRN (23:48)
[2022-11-28] MEDS: Ipratropium/Albuterol 3 ML NEB NEB SCH ×4 (01:10→18:31)
[2022-11-28] MEDS: Morphine 2 MG/ML VIAL SLOW IVP PRN ×6 (01:16→18:17)
[2022-11-28] MEDS: Lactated Ringer's 1,000 ML IV SCH ×3 (04:24→21:58)
[2022-11-28] MEDS: Ondansetron PF 4 MG/2 ML Vial IVP PRN ×2 (05:39→18:18)
[2022-11-28 06:12] LABS: #Eosinphils 0.1 thou/uL (0.0-0.7); #Lymphocytes 1.2 thou/uL (1.20-3.40); #Monocytes 0.4 thou/uL (0.11-0.59); #Neutrophils 2.2 thou/uL (1.40-6.50); %Basophils 1.2 % (0.0-1.0); %Lymphocytes 30.5 % (21.0-51.0); %Monocytes 9.3 % (0.0-10.0); Hemoglobin 8.2 g/dL (14.0-18.0); Mean Corpuscular HGB CONC 31.4 g/dL (32.0-36.0); Mean Corpuscular Hemoglobin 20.8 pg (27.0-31.0); Mean Corpuscular Volume 66.4 fl (78.0-98.0); Mean Platelet Volume 7.3 fL (7.4-10.4); Platelet Count 124 10x3/uL (130-400); RBC Distribution Width 18.2 % (11.5-14.5); Red Blood Cell (RBC) Count 3.92 mill/uL (4.70-6.10)
[2022-11-28 06:33] LABS: ALT (SGPT) Less than 7 U/L (8-55); AST (SGOT) 10 U/L (5-34); Albumin 3.8 g/dL (3.5-5.0); Alkaline Phosphatase 103 U/L (40-110); Anion Gap 12 mmol/L (10-20); BUN (Urea Nitrogen) 17 mg/dL (8.9-20.6); Bilirubin, Total 0.4 mg/dL (0.2-1.2); Calc. Creatinine Clearance 114 mL/min (70-130); Calcium 8.8 mg/dL (7.8-10.44); Carbon Dioxide 24 mmol/L (22-29); Chloride 106 mmol/L (98-107); Estimated GFR 90; Globulin 2.3 g/dL (2.4-3.5); Glucose 87 mg/dL (70-105); Potassium 3.7 mmol/L (3.5-5.1); Protein, Total 6.1 g/dL (6.0-8.3); Sodium 138 mmol/L (136-145)
[2022-11-28] MEDS: Mometasone 100 MCG/PUFF (1 INHALER) INH SCH ×2 (07:01→18:32)
[2022-11-28] MEDS: Pantoprazole 40 MG VIAL IVP SCH ×2 (08:41→21:58)
[2022-11-28] MEDS ORDERED: PROPOFOL 200 MG/20 ML VIAL ONE (09:13)
[2022-11-28] MEDS ORDERED: Lidocaine 1% PF 5 ML VIAL ONE (09:13)
[2022-11-28] MEDS ORDERED: Ondansetron PF 4 MG/2 ML Vial ONE (10:36)
[2022-11-28] MEDS ORDERED: Ondansetron HCl/PF 4 MG/2 ML Vial IVP PRN (10:39)
[2022-11-28] MEDS ORDERED: Promethazine HCl 25 MG/ML VIAL IM PRN (10:39)
[2022-11-28] MEDS ORDERED: Promethazine 25 MG TAB PO PRN (15:34)
[2022-11-28] MEDS ORDERED: Dicyclomine 10 MG CAP PO PRN (15:34)
[2022-11-28 18:18] LABS: Hemoglobin 8.5 g/dL (14.0-18.0)
[2022-11-28] MEDS ORDERED: QUEtiapine 200 MG TAB PO SCH (21:00)
[2022-11-28] MEDS: Pregabalin 75 MG CAP PO SCH (21:59)
[2022-11-28] MEDS: HYDROcodone/Acetaminophen 10/325 mg Tablet PO PRN (22:02)
[2022-11-29] MEDS: Ipratropium/Albuterol 3 ML NEB NEB SCH ×2 (00:31→07:35)
[2022-11-29] MEDS: Lactated Ringer's 1,000 ML IV SCH ×2 (04:54→05:19)
[2022-11-29] MEDS: Morphine 2 MG/ML VIAL SLOW IVP PRN ×2 (05:16→10:21)
[2022-11-29] MEDS ORDERED: Levothyroxine 150 MCG TAB PO SCH (06:00)
[2022-11-29 07:15] LABS: Mean Corpuscular HGB CONC 32.4 g/dL (32.0-36.0); Mean Corpuscular Hemoglobin 21.7 pg (27.0-31.0); Mean Platelet Volume 7.5 fL (7.4-10.4); Platelet Count 129 10x3/uL (130-400); RBC Distribution Width 18.4 % (11.5-14.5); Red Blood Cell (RBC) Count 3.67 mill/uL (4.70-6.10); White Blood Cell (WBC) Count 2.6 10x3/uL (4.8-10.8)
[2022-11-29] MEDS: Mometasone 100 MCG/PUFF (1 INHALER) INH SCH (07:35)
[2022-11-29] MEDS ORDERED: DULoxetine 30 MG CAP PO SCH (09:00)
[2022-11-29 09:01] LABS: Iron 19 ug/dL (65-175); Iron Binding Capacity, Total 383 mcg/dL (261-462)
[2022-11-29] MEDS: Ondansetron PF 4 MG/2 ML Vial IVP PRN (10:21)
[2022-11-29] MEDS: Pregabalin 75 MG CAP PO SCH (10:22)
[2022-11-29 12:31] VITALS: BP 142/79; TEMP 98
[2022-11-29] MEDS: HYDROcodone/Acetaminophen 10/325 mg Tablet PO PRN (13:37)
== END 2022-11-29 13:45 | disposition home or self-care (01) | DRG 378 ==
LOC: ERS 00:22 → SURG A 03:47
PROVIDERS: ADMIT Family Medicine; ATTEND Student in an Organized Health Care Education/Training Program
PROC: 0DJ08ZZ Inspection of Upper Intestinal Tract, Via Natural or Artificial Opening Endoscopic (ICD-10-PCS; principal; 2022-11-28)
DX: K92.0 Hematemesis (principal); K50.90 Crohn's disease, unspecified, without complications; F12.10 Cannabis abuse, uncomplicated; K92.1 Melena; K44.9 Diaphragmatic hernia without obstruction or gangrene; J44.9 Chronic obstructive pulmonary disease, unspecified; I48.91 Unspecified atrial fibrillation; F41.9 Anxiety disorder, unspecified; F32.A Depression, unspecified; D50.9 Iron deficiency anemia, unspecified; E03.9 Hypothyroidism, unspecified; G89.29 Other chronic pain; M54.9 Dorsalgia, unspecified; Z88.6 Allergy status to analgesic agent; Z79.899 Other long term (current) drug therapy; Z90.49 Acquired absence of other specified parts of digestive tract; Z98.890 Other specified postprocedural states; Z82.3 Family history of stroke; Z88.0 Allergy status to penicillin; Z88.8 Allergy status to other drugs, medicaments and biological substances
CPT/HCPCS: 36415; 36416; 71045; 80053; 82550; 82728; 83540; 83550; 83690; 85025; 85027; 93005; 93010; 94640; C9113; J2270; J2272; J2405; J2704; J7120; J7620

== ENCOUNTER 2022-12-03 01:20 | Inpatient (IN) | payer OTHER, MEDICAID ==
[~2022-12-03 01:20] MED LIST changes: +Heparin 1,000 UNITS/ML VIAL ONE; -Iopamidol-370 76% 500 ML 1 ML ONE
[2022-12-03] MEDS ORDERED: Morphine 4 MG/ML VIAL ONE ×2 (02:12→05:24)
[2022-12-03] MEDS ORDERED: Ondansetron PF 4 MG/2 ML Vial ONE (02:12)
[2022-12-03 02:46] LABS: #Eosinphils 0.1 thou/uL (0.0-0.7); #Lymphocytes 1.3 thou/uL (1.20-3.40); #Monocytes 0.5 thou/uL (0.11-0.59); #Neutrophils 3.1 thou/uL (1.40-6.50); %Basophils 0.6 % (0.0-1.0); %Eosinophils 1.6 % (0.0-10.0); %Lymphocytes 25.5 % (21.0-51.0); %Monocytes 10.5 % (0.0-10.0); %Neutrophils 61.7 % (42.0-75.0); Hemoglobin 9.8 g/dL (14.0-18.0); Mean Corpuscular HGB CONC 33.1 g/dL (32.0-36.0); Mean Corpuscular Hemoglobin 22.4 pg (27.0-31.0); Mean Corpuscular Volume 67.5 fl (78.0-98.0); Mean Platelet Volume 8.2 fL (7.4-10.4); Platelet Count 217 10x3/uL (130-400); RBC Distribution Width 18.3 % (11.5-14.5); White Blood Cell (WBC) Count 4.9 10x3/uL (4.8-10.8)
[2022-12-03 02:57] LABS: ALT (SGPT) Less than 7 U/L (8-55); AST (SGOT) 9 U/L (5-34); Albumin 4.5 g/dL (3.5-5.0); Alkaline Phosphatase 95 U/L (40-110); Anion Gap 12 mmol/L (10-20); BUN (Urea Nitrogen) 17 mg/dL (8.9-20.6); Bilirubin, Total 0.2 mg/dL (0.2-1.2); Calc. Creatinine Clearance 0 mL/min (70-130); Calcium 9.4 mg/dL (7.8-10.44); Carbon Dioxide 27 mmol/L (22-29); Chloride 107 mmol/L (98-107); Estimated GFR 95; Globulin 2.5 g/dL (2.4-3.5); Glucose 90 mg/dL (70-105); Lipase 36 U/L (8-78); Sodium 142 mmol/L (136-145)
[2022-12-03] MEDS ORDERED: HYDROmorphone 0.5 MG/0.5 ML SYRINGE ONE (02:59)
[2022-12-03] MEDS ORDERED: Pantoprazole 80 MG, Admixture Fee 1 EACH in Sodium Chloride 0.9% 100 ML IVPB SCH (05:00)
[2022-12-03] MEDS ORDERED: Pantoprazole 40 MG VIAL ONE (05:24)
[2022-12-03] MEDS ORDERED: ALPRAZolam 1 MG TAB PO PRN (08:56)
[2022-12-03] MEDS ORDERED: Promethazine 25 MG TAB PO PRN (08:56)
[2022-12-03] MEDS ORDERED: SUMATRIPTAN SUCCINATE 6 MG/0.5 ML SQ PRN (08:56)
[2022-12-03] MEDS ORDERED: Acetaminophen 325 MG TAB PO PRN (08:59)
[2022-12-03] MEDS ORDERED: Non-Formulary Item 1 EACH (Ferrous Sulfate [Ferrous Sulfate] 325 MG Tab) PO SCH (09:00)
[2022-12-03] MEDS ORDERED: LEVOTHYROXINE SODIUM 300 MCG PO SCH (09:00)
[2022-12-03] MEDS ORDERED: Ferrous Sulfate 325 MG TAB PO SCH (09:00)
[2022-12-03] MEDS ORDERED: SUMAtriptan Succinate 6 MG/0.5 ML VIAL SC PRN (09:11)
[2022-12-03] MEDS ORDERED: HYDROcodone/Acetaminophen 10/325 mg Tablet ONE (10:23)
[2022-12-03] MEDS: HYDROcodone/Acetaminophen 10/325 mg Tablet PO PRN ×2 (10:25→17:16)
[2022-12-03] MEDS: Lactated Ringer's 1,000 ML IV SCH ×3 (10:38→20:35)
[2022-12-03] MEDS ORDERED: Iopamidol-370 76% 500 ML MDV (1 ML CHARGE) ONE (15:14)
[2022-12-03] MEDS: Ondansetron PF 4 MG/2 ML Vial IVP PRN (17:15)
[2022-12-03 18:07] VITALS: BMI 27.1
[2022-12-03] MEDS ORDERED: Promethazine HCl 25 MG in Sodium Chloride 0.9% 50 ML IVPB PRN (19:09)
[2022-12-03] MEDS ORDERED: Morphine 4 MG/ML VIAL SLOW IVP SCH (19:15)
[2022-12-03] MEDS: DULoxetine 30 MG CAP PO SCH (20:31)
[2022-12-03] MEDS: QUEtiapine 200 MG TAB PO SCH (20:31)
[2022-12-03] MEDS: Pregabalin 75 MG CAP PO SCH (20:32)
[2022-12-03] MEDS ORDERED: DULoxetine 60 MG CAP PO SCH (21:00)
[2022-12-03] MEDS ORDERED: Non-Formulary Item 1 EACH (Quetiapine Fumarate [Seroquel] 400 MG Tablet) PO SCH (21:00)
[2022-12-04] MEDS: Dicyclomine 10 MG CAP PO PRN (00:06)
[2022-12-04] MEDS: HYDROcodone/Acetaminophen 10/325 mg Tablet PO PRN ×2 (00:07→05:08)
[2022-12-04] MEDS ORDERED: Morphine 4 MG/ML VIAL SLOW IVP SCH ×2 (02:00→06:15)
[2022-12-04] MEDS: Levothyroxine 150 MCG TAB PO SCH (05:08)
[2022-12-04 06:07] LABS: #Eosinphils 0.2 thou/uL (0.0-0.7); #Lymphocytes 1.1 thou/uL (1.20-3.40); #Monocytes 0.3 thou/uL (0.11-0.59); %Basophils 0.7 % (0.0-1.0); %Eosinophils 4.6 % (0.0-10.0); %Lymphocytes 31.5 % (21.0-51.0); %Monocytes 8.5 % (0.0-10.0); %Neutrophils 54.7 % (42.0-75.0); Mean Corpuscular HGB CONC 31.4 g/dL (32.0-36.0); Mean Corpuscular Hemoglobin 21.3 pg (27.0-31.0); Mean Corpuscular Volume 67.8 fl (78.0-98.0); Mean Platelet Volume 7.3 fL (7.4-10.4); Platelet Count 174 10x3/uL (130-400); RBC Distribution Width 17.9 % (11.5-14.5); Red Blood Cell (RBC) Count 3.31 mill/uL (4.70-6.10); White Blood Cell (WBC) Count 3.6 10x3/uL (4.8-10.8)
[2022-12-04 06:29] LABS: Anion Gap 11 mmol/L (10-20); BUN (Urea Nitrogen) 15 mg/dL (8.9-20.6); Calc. Creatinine Clearance 114 mL/min (70-130); Calcium 8.3 mg/dL (7.8-10.44); Carbon Dioxide 25 mmol/L (22-29); Chloride 110 mmol/L (98-107); Estimated GFR 89; Glucose 124 mg/dL (70-105); Potassium 3.5 mmol/L (3.5-5.1); Sodium 142 mmol/L (136-145)
[2022-12-04] MEDS: Ondansetron PF 4 MG/2 ML Vial IVP PRN ×2 (08:21→14:16)
[2022-12-04] MEDS: Pregabalin 75 MG CAP PO SCH ×2 (08:21→20:43)
[2022-12-04] MEDS: Lactated Ringer's 1,000 ML IV SCH ×2 (08:22→16:20)
[2022-12-04] MEDS ORDERED: Polyethylene Glycol 3350 17 GM Packet PO SCH (09:00)
[2022-12-04] MEDS ORDERED: Non-Formulary Item 1 EACH (Fluticasone/Umeclidin/Vilanter [Trelegy Ellipta 100-62.5-25] 1 INH SCH (09:00)
[2022-12-04] MEDS ORDERED: Fluticasone/Umeclidin/Vilanter [Trelegy Ellipta 100-62.5-25] INH SCH (09:00)
[2022-12-04] MEDS: HYDROcodone/Acetaminophen 10/325 mg Tablet PO SCH ×3 (09:31→22:09)
[2022-12-04] MEDS: Morphine 4 MG/ML VIAL SLOW IVP PRN ×3 (10:56→20:39)
[2022-12-04] MEDS ORDERED: Morphine 2 MG/ML VIAL SLOW IVP SCH ×2 (16:15→17:45)
[2022-12-04] MEDS ORDERED: Promethazine HCl 25 MG/ML VIAL IM SCH (16:30)
[2022-12-04 17:34] LABS: Hemoglobin 8.3 g/dL (14.0-18.0)
[2022-12-04] MEDS: DULoxetine 30 MG CAP PO SCH (20:44)
[2022-12-04] MEDS: QUEtiapine 200 MG TAB PO SCH (20:44)
[2022-12-04] MEDS: Pantoprazole 40 MG VIAL IVP SCH (20:51)
[2022-12-04] MEDS: Mometasone 100 MCG HFA INHALER (RT USE) INH SCH (21:18)
[2022-12-04] MEDS: Ipratropium Bromide 2.5 ml Neb NEB SCH (21:18)
[2022-12-05] MEDS: Morphine 4 MG/ML VIAL SLOW IVP PRN ×6 (00:33→23:29)
[2022-12-05] MEDS: Ipratropium Bromide 2.5 ml Neb NEB SCH ×4 (00:37→19:34)
[2022-12-05] MEDS: Lactated Ringer's 1,000 ML IV SCH ×3 (01:19→18:05)
[2022-12-05] MEDS: Ondansetron PF 4 MG/2 ML Vial IVP PRN ×2 (04:34→18:04)
[2022-12-05] MEDS: HYDROcodone/Acetaminophen 10/325 mg Tablet PO SCH ×5 (04:39→22:04)
[2022-12-05] MEDS: Levothyroxine 150 MCG TAB PO SCH (05:28)
[2022-12-05] MEDS ORDERED: Promethazine HCl 25 MG/ML VIAL IM SCH (06:30)
[2022-12-05 06:47] LABS: Anion Gap 13 mmol/L (10-20); BUN (Urea Nitrogen) 11 mg/dL (8.9-20.6); Calc. Creatinine Clearance 125 mL/min (70-130); Calcium 8.4 mg/dL (7.8-10.44); Carbon Dioxide 21 mmol/L (22-29); Chloride 110 mmol/L (98-107); Estimated GFR 99; Glucose 114 mg/dL (70-105); Potassium 3.4 mmol/L (3.5-5.1); Sodium 141 mmol/L (136-145)
[2022-12-05 07:09] LABS: #Eosinphils 0.2 thou/uL (0.0-0.7); #Lymphocytes 1.4 thou/uL (1.20-3.40); #Monocytes 0.5 thou/uL (0.11-0.59); #Neutrophils 2.7 thou/uL (1.40-6.50); %Eosinophils 4.1 % (0.0-10.0); %Monocytes 9.7 % (0.0-10.0); %Neutrophils 55.2 % (42.0-75.0); Hemoglobin 6.8 g/dL (14.0-18.0); Mean Corpuscular HGB CONC 31.4 g/dL (32.0-36.0); Mean Corpuscular Hemoglobin 22.1 pg (27.0-31.0); Mean Corpuscular Volume 70.4 fl (78.0-98.0); Mean Platelet Volume 11.8 fL (7.4-10.4); Platelet Count 192 10x3/uL (130-400); RBC Distribution Width 19.8 % (11.5-14.5); Red Blood Cell (RBC) Count 3.07 mill/uL (4.70-6.10); White Blood Cell (WBC) Count 4.8 10x3/uL (4.8-10.8)
[2022-12-05] MEDS: Pantoprazole 40 MG VIAL IVP SCH ×2 (08:06→20:02)
[2022-12-05] MEDS: Pregabalin 75 MG CAP PO SCH ×2 (08:08→20:02)
[2022-12-05] MEDS: Mometasone 100 MCG HFA INHALER (RT USE) INH SCH ×2 (08:20→19:35)
[2022-12-05] MEDS ORDERED: Potassium Chloride 20 MEQ in Premix Bag 1 BAG IVPB SCH (09:00)
[2022-12-05] MEDS ORDERED: fentaNYL 50 mcg/mL 1 mL Vial ONE ×2 (09:09)
[2022-12-05] MEDS ORDERED: Succinylcholine Chloride 100 MG/5 ML SYRINGE FS ONE (09:27)
[2022-12-05] MEDS ORDERED: Phenylephrine 10 MG/ML VIAL ONE (09:27)
[2022-12-05] MEDS ORDERED: Ondansetron PF 4 MG/2 ML Vial ONE (09:27)
[2022-12-05] MEDS ORDERED: Lidocaine 1% PF 5 ML VIAL ONE (09:27)
[2022-12-05] MEDS ORDERED: PROPOFOL 200 MG/20 ML VIAL ONE (09:27)
[2022-12-05] MEDS ORDERED: Ondansetron HCl/PF 4 MG/2 ML Vial IVP PRN (10:24)
[2022-12-05] MEDS ORDERED: Promethazine HCl 25 MG/ML VIAL IM PRN (10:24)
[2022-12-05] MEDS: Promethazine HCl 25 MG/ML VIAL IM SCH ×4 (10:30→22:04)
[2022-12-05] MEDS: Senokot S 8.6-50 MG TAB PO SCH (11:38)
[2022-12-05] MEDS: Polyethylene Glycol 3350 17 GM Packet PO SCH ×2 (11:38→20:02)
[2022-12-05 14:35] LABS: Hemoglobin 7.5 g/dL (14.0-18.0)
[2022-12-05] MEDS: DULoxetine 30 MG CAP PO SCH (20:02)
[2022-12-05] MEDS: QUEtiapine 200 MG TAB PO SCH (20:03)
[2022-12-06] MEDS: Ipratropium Bromide 2.5 ml Neb NEB SCH ×3 (00:17→14:03)
[2022-12-06] MEDS: Lactated Ringer's 1,000 ML IV SCH ×2 (02:03→08:59)
[2022-12-06] MEDS: Promethazine HCl 25 MG/ML VIAL IM SCH ×4 (03:44→15:38)
[2022-12-06 04:32] LABS: SARS-CoV-2 NAA Rapid Test Not Detected (NotDetected)
[2022-12-06] MEDS: HYDROcodone/Acetaminophen 10/325 mg Tablet PO SCH ×3 (05:43→16:24)
[2022-12-06] MEDS: Levothyroxine 150 MCG TAB PO SCH (05:49)
[2022-12-06] MEDS: Morphine 4 MG/ML VIAL SLOW IVP PRN ×3 (05:51→14:33)
[2022-12-06 06:49] LABS: #Eosinphils 0.2 thou/uL (0.0-0.7); #Lymphocytes 1.5 thou/uL (1.20-3.40); #Monocytes 0.5 thou/uL (0.11-0.59); %Basophils 0.5 % (0.0-1.0); %Eosinophils 4.4 % (0.0-10.0); %Lymphocytes 29.2 % (21.0-51.0); %Monocytes 8.7 % (0.0-10.0); %Neutrophils 57.2 % (42.0-75.0); Hemoglobin 6.9 g/dL (14.0-18.0); Mean Corpuscular HGB CONC 31.5 g/dL (32.0-36.0); Mean Corpuscular Hemoglobin 22.2 pg (27.0-31.0); Mean Corpuscular Volume 70.3 fl (78.0-98.0); Mean Platelet Volume 11.6 fL (7.4-10.4); Platelet Count 195 10x3/uL (130-400); RBC Distribution Width 19.6 % (11.5-14.5); Red Blood Cell (RBC) Count 3.09 mill/uL (4.70-6.10); White Blood Cell (WBC) Count 5.3 10x3/uL (4.8-10.8)
[2022-12-06 07:12] LABS: Anion Gap 14 mmol/L (10-20); BUN (Urea Nitrogen) 9 mg/dL (8.9-20.6); Calc. Creatinine Clearance 106 mL/min (70-130); Calcium 8.6 mg/dL (7.8-10.44); Carbon Dioxide 23 mmol/L (22-29); Chloride 110 mmol/L (98-107); Estimated GFR 81; Glucose 104 mg/dL (70-105); Potassium 3.8 mmol/L (3.5-5.1); Sodium 143 mmol/L (136-145)
[2022-12-06] MEDS: Mometasone 100 MCG HFA INHALER (RT USE) INH SCH (08:07)
[2022-12-06] MEDS: Pregabalin 75 MG CAP PO SCH (08:46)
[2022-12-06] MEDS: Senokot S 8.6-50 MG TAB PO SCH (08:47)
[2022-12-06] MEDS: Polyethylene Glycol 3350 17 GM Packet PO SCH (08:49)
[2022-12-06] MEDS: Pantoprazole 40 MG VIAL IVP SCH (08:54)
[2022-12-06] MEDS ORDERED: Promethazine HCl 25 MG SUPP PR PRN (10:10)
[2022-12-06] MEDS: Ondansetron PF 4 MG/2 ML Vial IVP PRN (11:14)
[2022-12-06] MEDS: Dicyclomine 10 MG CAP PO PRN (11:56)
[2022-12-06] MEDS ORDERED: Morphine 4 MG/ML VIAL SLOW IVP PRN (15:09)
[2022-12-06] MEDS ORDERED: Promethazine HCl 25 MG/ML VIAL IM PRN (15:30)
[2022-12-06 16:26] VITALS: BP 130/71; TEMP 99.1
[2022-12-06] MEDS ORDERED: Promethazine 25 MG TAB PO SCH (17:00)
== END 2022-12-06 16:56 | disposition short-term general hospital (02) | DRG 378 ==
LOC: ERS 01:20 → INTOOBSV 05:50 → ERHOLD 05:50 → T4-B 16:51 → OBSVTOIN 12-05 08:18
PROVIDERS: ADMIT Family Medicine; ATTEND Family Medicine
PROC: 30233N1 Transfusion of Nonautologous Red Blood Cells into Peripheral Vein, Percutaneous Approach (ICD-10-PCS; 2022-12-04)
PROC: 0W3P8ZZ Control Bleeding in Gastrointestinal Tract, Via Natural or Artificial Opening Endoscopic (ICD-10-PCS; principal; 2022-12-05)
DX: K92.0 Hematemesis (principal); D62 Acute posthemorrhagic anemia; K44.9 Diaphragmatic hernia without obstruction or gangrene; I48.91 Unspecified atrial fibrillation; K59.03 Drug induced constipation; T40.2X5A Adverse effect of other opioids, initial encounter; F41.9 Anxiety disorder, unspecified; F32.A Depression, unspecified; G89.4 Chronic pain syndrome; G47.00 Insomnia, unspecified; E03.9 Hypothyroidism, unspecified; Z90.49 Acquired absence of other specified parts of digestive tract; Z88.8 Allergy status to other drugs, medicaments and biological substances; Z88.0 Allergy status to penicillin; Z79.890 Hormone replacement therapy; Z79.899 Other long term (current) drug therapy; Z82.3 Family history of stroke; Z20.822 Contact with and (suspected) exposure to COVID-19
CPT/HCPCS: 36415; 36430; 74018; 74177; 78278; 80048; 80053; 83690; 85025; 86850; 86900; 86901; 93005; 94640; 96372; 96374; 96375; 96376; A9560; C9113; G0378; J1170; J1644; J2270; J2272; J2370; J2405; J2550; J2704; J3010; J3480; J3490; J7120; J7611; P9016; Q0169; Q9967; U0002

== ENCOUNTER 2022-12-24 09:25 | Emergency (ER) | payer OTHER, MEDICAID ==
[2022-12-24] MEDS ORDERED: Ondansetron PF 4 MG/2 ML Vial ONE (11:07)
[2022-12-24] MEDS ORDERED: Morphine 4 MG/ML VIAL ONE ×3 (11:07→12:57)
[2022-12-24] MEDS ORDERED: Pantoprazole 40 MG VIAL ONE (11:08)
[2022-12-24 12:29] LABS: ALT (SGPT) 63 U/L (8-55); AST (SGOT) 46 U/L (5-34); Albumin 4.2 g/dL (3.5-5.0); Alkaline Phosphatase 164 U/L (40-110); Anion Gap 16 mmol/L (10-20); BUN (Urea Nitrogen) 21 mg/dL (8.9-20.6); Bilirubin, Total 0.2 mg/dL (0.2-1.2); Calc. Creatinine Clearance 0 mL/min (70-130); Calcium 9.5 mg/dL (7.8-10.44); Carbon Dioxide 22 mmol/L (22-29); Chloride 109 mmol/L (98-107); Estimated GFR 80; Globulin 2.8 g/dL (2.4-3.5); Glucose 100 mg/dL (70-105); Lipase 22 U/L (8-78); Potassium 4.5 mmol/L (3.5-5.1); Sodium 142 mmol/L (136-145)
[2022-12-24 12:41] LABS: #Basophils 0.1 thou/uL (0.0-0.2); #Monocytes 0.4 thou/uL (0.11-0.59); #Neutrophils 5.6 thou/uL (1.40-6.50); %Basophils 0.9 % (0.0-1.0); %Eosinophils 0.4 % (0.0-10.0); %Lymphocytes 20.5 % (21.0-51.0); %Monocytes 4.7 % (0.0-10.0); Hemoglobin 11.9 g/dL (14.0-18.0); Mean Corpuscular HGB CONC 29.7 g/dL (32.0-36.0); Mean Corpuscular Hemoglobin 24.8 pg (27.0-31.0); Mean Corpuscular Volume 83.5 fl (78.0-98.0); Mean Platelet Volume 10.4 fL (7.4-10.4); Platelet Count 300 10x3/uL (130-400); RBC Distribution Width 20.4 % (11.5-14.5); White Blood Cell (WBC) Count 7.6 10x3/uL (4.8-10.8)
== END 2022-12-24 13:25 | disposition home or self-care (01) ==
LOC: ERS 09:25
DX: K92.2 Gastrointestinal hemorrhage, unspecified (principal); Z79.01 Long term (current) use of anticoagulants
CPT/HCPCS: 80053; 83605; 83690; 85025; 93005; 96361; 96374; 96375; 96376; C9113; J2270; J2405

== ENCOUNTER 2022-12-28 13:29 | Emergency (ER) | payer OTHER ==
[2022-12-28] MEDS ORDERED: Acetaminophen 500 MG TAB ONE (14:20)
[2022-12-28] MEDS ORDERED: Magnesium 2 GM/50 ML BAG (IN WATER) ONE (14:20)
[2022-12-28] MEDS ORDERED: diphenhydrAMINE 50 MG/ML VIAL ONE (14:20)
[2022-12-28] MEDS ORDERED: hydrALAZINE 20 MG/ML VIAL ONE (14:27)
[2022-12-28] MEDS ORDERED: Promethazine HCl 12.5 MG in Sodium Chloride 0.9% 50 ML IVPB SCH (15:00)
[2022-12-28 15:01] LABS: #Basophils 0.1 thou/uL (0.0-0.2); #Eosinphils 0.1 thou/uL (0.0-0.7); #Monocytes 0.2 thou/uL (0.11-0.59); #Neutrophils 3.5 thou/uL (1.40-6.50); %Basophils 1.2 % (0.0-1.0); %Eosinophils 2.2 % (0.0-10.0); %Lymphocytes 23.8 % (21.0-51.0); %Monocytes 4.5 % (0.0-10.0); %Neutrophils 67.7 % (42.0-75.0); Hemoglobin 13.2 g/dL (14.0-18.0); Mean Corpuscular HGB CONC 31.1 g/dL (32.0-36.0); Mean Corpuscular Volume 80.6 fl (78.0-98.0); Platelet Count 259 10x3/uL (130-400); RBC Distribution Width 19.2 % (11.5-14.5); Red Blood Cell (RBC) Count 5.27 mill/uL (4.70-6.10); White Blood Cell (WBC) Count 5.1 10x3/uL (4.8-10.8)
[2022-12-28 15:32] LABS: ALT (SGPT) 30 U/L (8-55); AST (SGOT) 31 U/L (5-34); Albumin 4.6 g/dL (3.5-5.0); Alkaline Phosphatase 151 U/L (40-110); Anion Gap 16 mmol/L (10-20); BUN (Urea Nitrogen) 16 mg/dL (8.9-20.6); Bilirubin, Total 0.2 mg/dL (0.2-1.2); Calc. Creatinine Clearance 0 mL/min (70-130); Calcium 10.1 mg/dL (7.8-10.44); Carbon Dioxide 25 mmol/L (22-29); Chloride 104 mmol/L (98-107); Estimated GFR 95; Globulin 3.6 g/dL (2.4-3.5); Glucose 97 mg/dL (70-105); Potassium 5.3 mmol/L (3.5-5.1); Protein, Total 8.2 g/dL (6.0-8.3); Sodium 140 mmol/L (136-145)
[2022-12-28] MEDS ORDERED: Morphine 4 MG/ML VIAL ONE (15:34)
[2022-12-28 18:09] LABS: Troponin I Less than 0.010 ng/mL (< 0.028)
== END 2022-12-28 18:24 | disposition home or self-care (01) ==
LOC: ERS 13:29
DX: I10 Essential (primary) hypertension (principal); R51.9 Headache, unspecified; Z79.899 Other long term (current) drug therapy
CPT/HCPCS: 70450; 71045; 80053; 84484 ×2; 85025; 93005; J0360; 36415; 96365; 96375; J1200; J2270; J2550; J3475

== ENCOUNTER 2022-12-30 10:54 | Emergency (ER) | payer OTHER, MEDICAID ==
[2022-12-30 11:53] LABS: #Eosinphils 0.1 thou/uL (0.0-0.7); #Monocytes 0.2 thou/uL (0.11-0.59); #Neutrophils 2.7 thou/uL (1.40-6.50); %Basophils 0.9 % (0.0-1.0); %Eosinophils 3.3 % (0.0-10.0); %Lymphocytes 28.6 % (21.0-51.0); %Monocytes 4.2 % (0.0-10.0); %Neutrophils 62.8 % (42.0-75.0); Mean Corpuscular HGB CONC 30.7 g/dL (32.0-36.0); Mean Corpuscular Hemoglobin 25.3 pg (27.0-31.0); Mean Corpuscular Volume 82.7 fl (78.0-98.0); Mean Platelet Volume 10.4 fL (7.4-10.4); Platelet Count 262 10x3/uL (130-400); Red Blood Cell (RBC) Count 5.13 mill/uL (4.70-6.10); White Blood Cell (WBC) Count 4.3 10x3/uL (4.8-10.8)
[2022-12-30] MEDS ORDERED: Acetaminophen 500 MG TAB ONE ×2 (11:55→12:00)
[2022-12-30] MEDS ORDERED: Lidocaine Viscous Sol 2% 15 ml UD Cup ONE (11:56)
[2022-12-30] MEDS ORDERED: Mag-Al 1200 mg/1200 mg/30 ML UDCUP ONE (11:56)
[2022-12-30 12:17] LABS: ALT (SGPT) 21 U/L (8-55); AST (SGOT) 11 U/L (5-34); Albumin 4.6 g/dL (3.5-5.0); Alkaline Phosphatase 147 U/L (40-110); Anion Gap 15 mmol/L (10-20); BUN (Urea Nitrogen) 18 mg/dL (8.9-20.6); Bilirubin, Total 0.3 mg/dL (0.2-1.2); CK (CPK) 67 U/L (30-200); Calc. Creatinine Clearance 0 mL/min (70-130); Calcium 9.9 mg/dL (7.8-10.44); Carbon Dioxide 26 mmol/L (22-29); Chloride 104 mmol/L (98-107); Estimated GFR 83; Glucose 103 mg/dL (70-105); Lipase 29 U/L (8-78); Potassium 3.8 mmol/L (3.5-5.1); Protein, Total 7.6 g/dL (6.0-8.3); Sodium 141 mmol/L (136-145)
== END 2022-12-30 12:57 | disposition home or self-care (01) ==
LOC: ERS 10:54
DX: R07.89 Other chest pain (principal); D72.819 Decreased white blood cell count, unspecified; Z79.01 Long term (current) use of anticoagulants
CPT/HCPCS: 71045; 80053; 82550; 83690; 84484; 85025; 93005

== ENCOUNTER 2023-01-24 16:32 | Observation (INO) | payer MEDICARE, OTHER ==
[2023-01-24] MEDS ORDERED: Nitroglycerin 0.4 MG TAB 1 EACH ONE ×2 (17:54→19:54)
[2023-01-24] MEDS ORDERED: Nitroglycerin 2% Ointment 1 INCH/1 GM Packet ONE (18:24)
[2023-01-24 18:25] LABS: #Basophils 0.1 thou/uL (0.0-0.2); #Eosinphils 0.1 thou/uL (0.0-0.7); #Monocytes 0.4 thou/uL (0.11-0.59); #Neutrophils 3.3 thou/uL (1.40-6.50); %Basophils 0.9 % (0.0-1.0); %Eosinophils 1.5 % (0.0-10.0); %Lymphocytes 28.1 % (21.0-51.0); %Monocytes 6.6 % (0.0-10.0); %Neutrophils 62.5 % (42.0-75.0); Hemoglobin 12.6 g/dL (14.0-18.0); Mean Corpuscular HGB CONC 31.8 g/dL (32.0-36.0); Mean Corpuscular Hemoglobin 25.1 pg (27.0-31.0); Mean Platelet Volume 10.4 fL (7.4-10.4); Platelet Count 184 10x3/uL (130-400); RBC Distribution Width 17.2 % (11.5-14.5); Red Blood Cell (RBC) Count 5.01 mill/uL (4.70-6.10); White Blood Cell (WBC) Count 5.3 10x3/uL (4.8-10.8)
[2023-01-24] MEDS ORDERED: Ondansetron ODT 4 MG TAB ONE (18:25)
[2023-01-24 18:57] LABS: ALT (SGPT) 11 U/L (8-55); AST (SGOT) 13 U/L (5-34); Albumin 4.1 g/dL (3.5-5.0); Alkaline Phosphatase 121 U/L (40-110); Anion Gap 15 mmol/L (10-20); BUN (Urea Nitrogen) 16 mg/dL (8.9-20.6); Bilirubin, Total 0.3 mg/dL (0.2-1.2); Calc. Creatinine Clearance 0 mL/min (70-130); Calcium 9.1 mg/dL (7.8-10.44); Carbon Dioxide 21 mmol/L (22-29); Chloride 111 mmol/L (98-107); Estimated GFR 106; Globulin 2.4 g/dL (2.4-3.5); Glucose 97 mg/dL (70-105); Potassium 4.7 mmol/L (3.5-5.1); Protein, Total 6.5 g/dL (6.0-8.3)
[2023-01-24 19:08] LABS: Sodium 142 mmol/L (136-145)
[2023-01-24] MEDS ORDERED: Aspirin Chewable 81 MG TAB ONE (20:27)
[2023-01-24] MEDS ORDERED: Ondansetron PF 4 MG/2 ML Vial IVP PRN (21:24)
[2023-01-24] MEDS ORDERED: Nitroglycerin 0.4 MG TAB (25 Tab Bottle) SL PRN (21:24)
[2023-01-24] MEDS ORDERED: Acetaminophen 325 MG TAB PO PRN (21:24)
[2023-01-24] MEDS ORDERED: Morphine 4 MG/ML VIAL SLOW IVP PRN ×2 (21:26→23:19)
[2023-01-24] MEDS ORDERED: ALPRAZolam 1 MG TAB PO PRN (23:14)
[2023-01-24 23:21] VITALS: BMI 27.2
[2023-01-24] MEDS ORDERED: SUMAtriptan Succinate 50 MG TAB PO PRN (23:27)
[2023-01-24 23:46] LABS: Troponin I Less than 0.010 ng/mL (< 0.028)
[2023-01-25] MEDS: HYDROcodone/Acetaminophen 10/325 mg Tablet PO PRN ×2 (04:09→12:36)
[2023-01-25 05:57] LABS: Amphetamine Not Detected (NotDetected); Barbiturates Screen Not Detected (NotDetected); Benzodiazepine Screen Not Detected (NotDetected); Cocaine Metabolite Screen Not Detected (NotDetected); Methadone Not Detected (NotDetected); Methamphetamine Not Detected (NotDetected); Opiate Screen Detected (NotDetected); Oxycodone Screen Not Detected (NotDetected); Phencyclidine (PCP) Not Detected (NotDetected); THC/Cannabinoid Screen Not Detected (NotDetected); Tricyclic Screen Detected (NotDetected)
[2023-01-25] MEDS ORDERED: Levothyroxine 150 MCG TAB PO SCH (06:00)
[2023-01-25 06:14] LABS: #Eosinphils 0.2 thou/uL (0.0-0.7); #Monocytes 0.4 thou/uL (0.11-0.59); #Neutrophils 2.7 thou/uL (1.40-6.50); %Basophils 0.8 % (0.0-1.0); %Eosinophils 2.9 % (0.0-10.0); %Lymphocytes 36.5 % (21.0-51.0); %Monocytes 7.6 % (0.0-10.0); Mean Corpuscular HGB CONC 30.9 g/dL (32.0-36.0); Mean Corpuscular Hemoglobin 25.1 pg (27.0-31.0); Platelet Count 211 10x3/uL (130-400); RBC Distribution Width 17.3 % (11.5-14.5); Red Blood Cell (RBC) Count 5.17 mill/uL (4.70-6.10); White Blood Cell (WBC) Count 5.2 10x3/uL (4.8-10.8)
[2023-01-25 06:23] LABS: Hemoglobin A1c 4.7 % (4.0-6.0)
[2023-01-25 06:25] LABS: Mean Corpuscular Volume 81.4 fl (78.0-98.0)
[2023-01-25 06:40] LABS: Anion Gap 14 mmol/L (10-20); BUN (Urea Nitrogen) 17 mg/dL (8.9-20.6); Calc. Creatinine Clearance 138 mL/min (70-130); Calcium 9.4 mg/dL (7.8-10.44); Carbon Dioxide 21 mmol/L (22-29); Cardiac Risk 5.3 (Less than 4.5); Chloride 107 mmol/L (98-107); Cholesterol 267 mg/dl (< 200 Desired); Estimated GFR 108; Glucose 83 mg/dL (70-105); HDL Cholesterol 50 mg/dL (>60 Neg Risk); LDL Cholesterol, Calculated 163 mg/dL; Potassium 3.9 mmol/L (3.5-5.1); Sodium 138 mmol/L (136-145); Triglycerides 268 mg/dL (Less than 150)
[2023-01-25 06:41] LABS: Troponin I Less than 0.010 ng/mL (< 0.028)
[2023-01-25] MEDS ORDERED: Pregabalin 75 MG CAP PO SCH (09:00)
[2023-01-25] MEDS ORDERED: DULoxetine 30 MG CAP PO SCH (09:00)
[2023-01-25] MEDS ORDERED: Amlodipine 10 MG TAB PO SCH (09:00)
[2023-01-25] MEDS ORDERED: Apixaban 5 MG TAB PO SCH (09:00)
[2023-01-25 12:52] VITALS: BP 151/94; TEMP 98.9
[2023-01-25] MEDS ORDERED: Atorvastatin Calcium 20 MG TAB PO SCH (21:00)
== END 2023-01-25 14:00 | disposition home or self-care (01) ==
LOC: ERS 16:32 → 2SW 21:16
PROVIDERS: ADMIT Internal Medicine; ATTEND Internal Medicine
DX: R07.9 Chest pain, unspecified (principal); I10 Essential (primary) hypertension; I48.91 Unspecified atrial fibrillation; E78.5 Hyperlipidemia, unspecified; G43.909 Migraine, unspecified, not intractable, without status migrainosus; F41.8 Other specified anxiety disorders; Z88.0 Allergy status to penicillin; Z79.01 Long term (current) use of anticoagulants; Z88.6 Allergy status to analgesic agent; Z88.8 Allergy status to other drugs, medicaments and biological substances; Z90.49 Acquired absence of other specified parts of digestive tract; Z79.899 Other long term (current) drug therapy
CPT/HCPCS: 71045; 78452; 80048; 80053; 80061; 80306; 83036; 84484 ×3; 85025 ×2; 93005; 93017; 96374; 96375; 99285; A9500; G0378 ×3; 36415; J2270; J2405; Q0162

== ENCOUNTER 2023-01-26 23:12 | Emergency (ER) | payer OTHER ==
[2023-01-26 23:34] LABS: Bacteria/HPF 4+ HPF (None Seen); Bilirubin Negative (Negative); Blood, Urine Negative (Negative); CAUTI Indications for Culture Dysuria,urgency,freq; Clarity Clear (Clear); Glucose, Urine (Dipstick) Normal (Negative); Ketone, Urine Negative (Negative); Leukocyte 75 Leu/uL (Negative); Nitrite 2+ (Negative); Protein, Urine (Dipstick) 20 mg/dL (Neg-Trace); RBC/HPF 0-3 HPF (0-3); Specific Gravity, Urine 1.029 (1.002-1.036); Squamous Epithelial 0-3 HPF (0-3); Urobilinogen Normal mg/dL (Less than 2); pH, Urine 6.5 (5.0-9.0)
[2023-01-26 23:35] LABS: Urine Culture Reflex No No
== END 2023-01-27 01:52 | disposition left against medical advice (07) ==
LOC: ERS 23:12
DX: Z53.21 Procedure and treatment not carried out due to patient leaving prior to being seen by health care provider (principal)
CPT/HCPCS: 81001

== ENCOUNTER 2023-02-24 02:09 | Emergency (ER) | payer OTHER ==
[2023-02-24 02:38] LABS: #Basophils 0.1 thou/uL (0.0-0.2); #Eosinphils 0.1 thou/uL (0.0-0.7); #Monocytes 0.5 thou/uL (0.11-0.59); #Neutrophils 2.8 thou/uL (1.40-6.50); %Basophils 1.2 % (0.0-1.0); %Eosinophils 2.3 % (0.0-10.0); %Lymphocytes 31.4 % (21.0-51.0); %Monocytes 9.7 % (0.0-10.0); %Neutrophils 55.2 % (42.0-75.0); Hemoglobin 11.5 g/dL (14.0-18.0); Mean Corpuscular HGB CONC 32.4 g/dL (32.0-36.0); Mean Corpuscular Hemoglobin 25.2 pg (27.0-31.0); Mean Corpuscular Volume 77.9 fl (78.0-98.0); Mean Platelet Volume 10.3 fL (7.4-10.4); Platelet Count 199 10x3/uL (130-400); RBC Distribution Width 15.1 % (11.5-14.5); Red Blood Cell (RBC) Count 4.56 mill/uL (4.70-6.10); White Blood Cell (WBC) Count 5.1 10x3/uL (4.8-10.8)
[2023-02-24] MEDS ORDERED: Nitroglycerin 0.4 MG TAB 1 EACH ONE ×2 (03:04→03:30)
[2023-02-24 03:07] LABS: Albumin 4.3 g/dL (3.5-5.0); Anion Gap 17 mmol/L (10-20); BUN (Urea Nitrogen) 21 mg/dL (8.9-20.6); Bilirubin, Total 0.2 mg/dL (0.2-1.2); Calc. Creatinine Clearance 0 mL/min (70-130); Calcium 9.5 mg/dL (7.8-10.44); Carbon Dioxide 21 mmol/L (22-29); Chloride 107 mmol/L (98-107); Estimated GFR 95; Glucose 93 mg/dL (70-105); Potassium 4.3 mmol/L (3.5-5.1); Protein, Total 6.8 g/dL (6.0-8.3); Sodium 141 mmol/L (136-145)
[2023-02-24 03:08] LABS: ALT (SGPT) 13 U/L (8-55); AST (SGOT) 11 U/L (5-34); Alkaline Phosphatase 116 U/L (40-110); Globulin 2.5 g/dL (2.4-3.5); Lipase 29 U/L (8-78)
== END 2023-02-24 04:14 | disposition left against medical advice (07) ==
LOC: ERS 02:09
DX: Z53.29 Procedure and treatment not carried out because of patient's decision for other reasons (principal)
CPT/HCPCS: 71045; 80053; 83690; 84484; 85025; 93005

== ENCOUNTER 2023-02-26 01:55 | Emergency (ER) | payer OTHER ==
[2023-02-26] MEDS ORDERED: fentaNYL 50 mcg/mL 1 mL Vial ONE (02:30)
[2023-02-26 03:06] LABS: #Basophils 0.1 thou/uL (0.0-0.2); #Eosinphils 0.2 thou/uL (0.0-0.7); #Monocytes 0.5 thou/uL (0.11-0.59); #Neutrophils 2.9 thou/uL (1.40-6.50); %Eosinophils 3.6 % (0.0-10.0); %Lymphocytes 26.4 % (21.0-51.0); %Monocytes 9.9 % (0.0-10.0); %Neutrophils 57.7 % (42.0-75.0); Hemoglobin 10.4 g/dL (14.0-18.0); Mean Corpuscular HGB CONC 31.5 g/dL (32.0-36.0); Mean Corpuscular Hemoglobin 25.1 pg (27.0-31.0); Mean Corpuscular Volume 79.5 fl (78.0-98.0); Mean Platelet Volume 10.5 fL (7.4-10.4); Platelet Count 163 10x3/uL (130-400); RBC Distribution Width 14.9 % (11.5-14.5); Red Blood Cell (RBC) Count 4.15 mill/uL (4.70-6.10); White Blood Cell (WBC) Count 5.1 10x3/uL (4.8-10.8)
[2023-02-26] MEDS ORDERED: Acetaminophen 325 MG TAB ONE (03:17)
[2023-02-26 03:23] LABS: INR-International Normal Ratio 1.4; PTT 32.9 sec (22.9-36.1); Prothrombin Time 17.5 sec (12.0-14.7)
[2023-02-26 03:25] LABS: D-Dimer Test 0.3 *mcg/mL (0.27-0.43)
[2023-02-26 03:34] LABS: ALT (SGPT) 16 U/L (8-55); AST (SGOT) 19 U/L (5-34); Albumin 3.9 g/dL (3.5-5.0); Alkaline Phosphatase 114 U/L (40-110); Anion Gap 15 mmol/L (10-20); BUN (Urea Nitrogen) 15 mg/dL (8.9-20.6); Bilirubin, Total 0.2 mg/dL (0.2-1.2); Calc. Creatinine Clearance 0 mL/min (70-130); Calcium 9.1 mg/dL (7.8-10.44); Carbon Dioxide 21 mmol/L (22-29); Chloride 107 mmol/L (98-107); Estimated GFR 108; Globulin 2.8 g/dL (2.4-3.5); Glucose 119 mg/dL (70-105); Lipase 25 U/L (8-78); Magnesium 1.7 mg/dL (1.6-2.6); Potassium 3.9 mmol/L (3.5-5.1); Protein, Total 6.7 g/dL (6.0-8.3); Sodium 139 mmol/L (136-145)
[2023-02-26] MEDS ORDERED: Mag-Al 1200 mg/1200 mg/30 ML UDCUP ONE (03:44)
== END 2023-02-26 03:52 | disposition home or self-care (01) ==
LOC: ERS 01:55
DX: R07.9 Chest pain, unspecified (principal); D64.9 Anemia, unspecified; I10 Essential (primary) hypertension
CPT/HCPCS: 36415; 80053; 83690; 83735; 83880; 84484; 85025; 85379; 85610; 85730; 93005; J3010

== ENCOUNTER 2023-02-26 18:08 | Emergency (ER) | payer OTHER ==
[2023-02-26] MEDS ORDERED: Ondansetron ODT 4 MG TAB ONE (19:11)
[2023-02-26 19:24] LABS: #Basophils 0.1 thou/uL (0.0-0.2); #Eosinphils 0.2 thou/uL (0.0-0.7); #Monocytes 0.4 thou/uL (0.11-0.59); #Neutrophils 3.2 thou/uL (1.40-6.50); %Basophils 0.9 % (0.0-1.0); %Eosinophils 4.1 % (0.0-10.0); %Lymphocytes 26.8 % (21.0-51.0); %Monocytes 7.7 % (0.0-10.0); %Neutrophils 59.9 % (42.0-75.0); Hemoglobin 11.1 g/dL (14.0-18.0); Mean Corpuscular HGB CONC 31.4 g/dL (32.0-36.0); Mean Corpuscular Hemoglobin 25.2 pg (27.0-31.0); Mean Corpuscular Volume 80.2 fl (78.0-98.0); Mean Platelet Volume 10.2 fL (7.4-10.4); Platelet Count 205 10x3/uL (130-400); RBC Distribution Width 15.2 % (11.5-14.5); White Blood Cell (WBC) Count 5.3 10x3/uL (4.8-10.8)
[2023-02-26 20:23] LABS: ALT (SGPT) 18 U/L (8-55); AST (SGOT) 16 U/L (5-34); Albumin 4.4 g/dL (3.5-5.0); Alkaline Phosphatase 121 U/L (40-110); Anion Gap 14 mmol/L (10-20); BUN (Urea Nitrogen) 20 mg/dL (8.9-20.6); Bilirubin, Total Less than 0.2 mg/dL (0.2-1.2); Calc. Creatinine Clearance 0 mL/min (70-130); Calcium 9.7 mg/dL (7.8-10.44); Carbon Dioxide 24 mmol/L (22-29); Chloride 106 mmol/L (98-107); Estimated GFR 90; Globulin 2.8 g/dL (2.4-3.5); Glucose 107 mg/dL (70-105); Lipase 25 U/L (8-78); Potassium 4.2 mmol/L (3.5-5.1); Protein, Total 7.2 g/dL (6.0-8.3); Sodium 140 mmol/L (136-145)
[2023-02-26 20:58] LABS: Bacteria/HPF None Seen HPF (None Seen); Bilirubin Negative (Negative); Blood, Urine 2+ (Negative); CAUTI Indications for Culture Alt mental st,lethar; Clarity Clear (Clear); Glucose, Urine (Dipstick) Normal (Negative); Ketone, Urine Negative (Negative); Leukocyte Negative Leu/uL (Negative); Nitrite Negative (Negative); Protein, Urine (Dipstick) Negative (Neg-Trace); RBC/HPF 21-50 HPF (0-3); Specific Gravity, Urine 1.016 (1.002-1.036); Squamous Epithelial None Seen HPF (0-3); Urobilinogen Normal mg/dL (Less than 2); WBC/HPF 0-3 HPF (0-3)
[2023-02-26 20:59] LABS: Urine Culture Reflex No No
[2023-02-26] MEDS ORDERED: Acetaminophen 325 MG TAB ONE (21:15)
== END 2023-02-26 23:01 | disposition home or self-care (01) ==
LOC: ERS 18:08
DX: R07.9 Chest pain, unspecified (principal); G89.29 Other chronic pain; I10 Essential (primary) hypertension; Z79.01 Long term (current) use of anticoagulants
CPT/HCPCS: 71045; 80053 ×2; 81001; 83690; 83735; 83880; 84484 ×2; 85025 ×2; 85379; 85610; 85730; 93005; 99285; J3010; 36415; Q0162

== ENCOUNTER 2023-03-09 07:04 | Inpatient (IN) | payer OTHER, MEDICAID ==
[2023-03-09 07:34] LABS: #Eosinphils 0.2 thou/uL (0.0-0.7); #Monocytes 0.5 thou/uL (0.11-0.59); #Neutrophils 5.5 thou/uL (1.40-6.50); %Basophils 0.4 % (0.0-1.0); %Eosinophils 3.2 % (0.0-10.0); %Lymphocytes 12.7 % (21.0-51.0); %Monocytes 7.4 % (0.0-10.0); %Neutrophils 75.9 % (42.0-75.0); Hemoglobin 10.8 g/dL (14.0-18.0); Mean Corpuscular HGB CONC 31.4 g/dL (32.0-36.0); Mean Corpuscular Hemoglobin 25.1 pg (27.0-31.0); Mean Platelet Volume 9.6 fL (7.4-10.4); Platelet Count 220 10x3/uL (130-400); RBC Distribution Width 15.8 % (11.5-14.5); White Blood Cell (WBC) Count 7.2 10x3/uL (4.8-10.8)
[2023-03-09] MEDS ORDERED: methylPREDNISolone Sod Succ/PF 125 MG/2 ML VIAL ONE (07:44)
[2023-03-09] MEDS ORDERED: Cefepime 2 GM VIAL ONE (07:44)
[2023-03-09] MEDS ORDERED: Ipratropium/Albuterol 3 ML NEB ONE (07:44)
[2023-03-09 08:01] LABS: ALT (SGPT) 34 U/L (8-55); AST (SGOT) 25 U/L (5-34); Albumin 4.4 g/dL (3.5-5.0); Alkaline Phosphatase 195 U/L (40-110); Anion Gap 17 mmol/L (10-20); BUN (Urea Nitrogen) 16 mg/dL (8.9-20.6); Bilirubin, Total 0.5 mg/dL (0.2-1.2); Calc. Creatinine Clearance 0 mL/min (70-130); Calcium 9.5 mg/dL (7.8-10.44); Carbon Dioxide 26 mmol/L (22-29); Chloride 100 mmol/L (98-107); Estimated GFR 64; Globulin 3.3 g/dL (2.4-3.5); Glucose 131 mg/dL (70-105); Magnesium 1.7 mg/dL (1.6-2.6); Potassium 3.6 mmol/L (3.5-5.1); Protein, Total 7.7 g/dL (6.0-8.3); Sodium 138 mmol/L (136-145)
[2023-03-09] MEDS ORDERED: VANCOMYCIN 1.25 GM/250 ML ONE (08:42)
[2023-03-09] MEDS ORDERED: VANCOMYCIN 1.25 GM/250 ML BAG 1.25 GM in Premix Bag 1 BAG IVPB SCH (09:00)
[2023-03-09] MEDS ORDERED: Iopamidol-370 76% 500 ML MDV (1 ML CHARGE) ONE (09:01)
[2023-03-09] MEDS ORDERED: Ondansetron PF 4 MG/2 ML Vial IVP PRN (09:07)
[2023-03-09] MEDS ORDERED: Ondansetron ODT 4 MG TAB PO PRN (09:08)
[2023-03-09] MEDS ORDERED: Acetaminophen 325 MG TAB PO PRN ×2 (09:08→10:27)
[2023-03-09] MEDS ORDERED: HYDROcodone/Acetaminophen 10/325 mg Tablet ONE (09:14)
[2023-03-09 10:01] LABS: SARS-CoV-2 NAA Rapid Test Not Detected (NotDetected)
[2023-03-09] MEDS ORDERED: Bisacodyl 10 MG SUPP PR PRN (10:27)
[2023-03-09] MEDS ORDERED: Calcium Carbonate 500 MG ChewTAB PO PRN (10:27)
[2023-03-09 10:55] VITALS: BMI 27.7
[2023-03-09] MEDS: Sodium Chloride 0.9% 1,000 ML IV SCH ×2 (11:07→20:20)
[2023-03-09] MEDS: ALPRAZolam 1 MG TAB PO PRN ×2 (13:45→21:35)
[2023-03-09 14:18] LABS: Legionella Urinary Ag Negative (Negative); Strep pneumo Urine Ag NEGATIVE (NEGATIVE)
[2023-03-09 19:21] LABS: HIV (1/2) Antibody/Antigen Non-Reactive (NonReactive); HIV 1/2 INDEX 0.17 S/CO (<1.00)
[2023-03-09] MEDS: Senokot S 8.6-50 MG TAB PO SCH (20:17)
[2023-03-09] MEDS: Apixaban 5 MG TAB PO SCH (20:18)
[2023-03-09] MEDS: Cefepime 1 GM in Sodium Chloride 0.9% 100 ML IVPB SCH (20:18)
[2023-03-09] MEDS: Pregabalin 50 MG CAP PO SCH (20:18)
[2023-03-09] MEDS: HYDROcodone/Acetaminophen 5/325 mg Tablet PO PRN (20:19)
[2023-03-09] MEDS: Atorvastatin Calcium 20 MG TAB PO SCH (20:19)
[2023-03-09] MEDS ORDERED: Vancomycin HCl 1 GM in Sodium Chloride 0.9% 250 ML 250 ML IVPB SCH (21:00)
[2023-03-09] MEDS: VANCOMYCIN 1.25 GM/250 ML BAG 1.25 GM in Premix Bag 1 BAG IVPB SCH (21:35)
[2023-03-10] MEDS: HYDROcodone/Acetaminophen 5/325 mg Tablet PO PRN ×2 (02:40→07:40)
[2023-03-10] MEDS: Levothyroxine Sodium 100 MCG TAB PO SCH (04:30)
[2023-03-10] MEDS ORDERED: traMADol HCl 50 MG TAB PO SCH (04:30)
[2023-03-10] MEDS: Guaifenesin DM 100-10/5 ML UDCUP PO PRN ×2 (04:30→09:23)
[2023-03-10] MEDS ORDERED: Lidocaine 4% Patch TD SCH (04:30)
[2023-03-10] MEDS: ALPRAZolam 1 MG TAB PO PRN ×3 (05:44→22:01)
[2023-03-10] MEDS: Cefepime 1 GM in Sodium Chloride 0.9% 100 ML IVPB SCH (07:40)
[2023-03-10] MEDS: Pregabalin 50 MG CAP PO SCH ×2 (07:41→20:36)
[2023-03-10] MEDS: DULoxetine 30 MG CAP PO SCH (07:42)
[2023-03-10] MEDS: Senokot S 8.6-50 MG TAB PO SCH ×2 (07:42→20:38)
[2023-03-10] MEDS: Amlodipine 5 MG TAB PO SCH (07:42)
[2023-03-10] MEDS: Apixaban 5 MG TAB PO SCH ×2 (07:43→20:36)
[2023-03-10 07:56] LABS: #Monocytes 0.6 thou/uL (0.11-0.59); #Neutrophils 4.5 thou/uL (1.40-6.50); %Basophils 0.2 % (0.0-1.0); %Eosinophils 0.2 % (0.0-10.0); %Lymphocytes 13.2 % (21.0-51.0); %Monocytes 9.3 % (0.0-10.0); %Neutrophils 76.8 % (42.0-75.0); Hemoglobin 9.4 g/dL (14.0-18.0); Mean Corpuscular HGB CONC 30.8 g/dL (32.0-36.0); Mean Corpuscular Hemoglobin 24.9 pg (27.0-31.0); Mean Corpuscular Volume 80.9 fl (78.0-98.0); Mean Platelet Volume 10.2 fL (7.4-10.4); Platelet Count 240 10x3/uL (130-400); RBC Distribution Width 15.9 % (11.5-14.5); Red Blood Cell (RBC) Count 3.77 mill/uL (4.70-6.10); White Blood Cell (WBC) Count 5.9 10x3/uL (4.8-10.8)
[2023-03-10 08:19] LABS: Anion Gap 12 mmol/L (10-20); BUN (Urea Nitrogen) 15 mg/dL (8.9-20.6); Calc. Creatinine Clearance 149 mL/min (70-130); Calcium 8.9 mg/dL (7.8-10.44); Carbon Dioxide 24 mmol/L (22-29); Chloride 106 mmol/L (98-107); Estimated GFR 110; Glucose 92 mg/dL (70-105); Potassium 4.1 mmol/L (3.5-5.1); Sodium 138 mmol/L (136-145)
[2023-03-10] MEDS ORDERED: hydrOXYzine 25 MG TAB PO PRN (08:26)
[2023-03-10] MEDS: VANCOMYCIN 1.25 GM/250 ML BAG 1.25 GM in Premix Bag 1 BAG IVPB SCH ×3 (09:24→22:55)
[2023-03-10] MEDS: HYDROcodone/Acetaminophen 10/325 mg Tablet PO PRN (11:38)
[2023-03-10] MEDS ORDERED: Transdermal Patch Removal TOP SCH (16:30)
[2023-03-10] MEDS: oxyCODONE/Acetaminophen 5 mg/325 mg Tablet PO PRN ×2 (17:49→22:01)
[2023-03-10 18:28] LABS: Amphetamine Not Detected (NotDetected); Barbiturates Screen Not Detected (NotDetected); Benzodiazepine Screen Detected (NotDetected); Cocaine Metabolite Screen Not Detected (NotDetected); Methadone Not Detected (NotDetected); Methamphetamine Not Detected (NotDetected); Opiate Screen Detected (NotDetected); Oxycodone Screen Not Detected (NotDetected); Phencyclidine (PCP) Not Detected (NotDetected); THC/Cannabinoid Screen Not Detected (NotDetected); Tricyclic Screen Not Detected (NotDetected)
[2023-03-10] MEDS: Atorvastatin Calcium 20 MG TAB PO SCH (20:36)
[2023-03-10] MEDS: Cefepime 2 GM in Sodium Chloride 0.9% 100 ML IVPB SCH (20:36)
[2023-03-10] MEDS: QUEtiapine 200 MG TAB PO SCH (20:38)
[2023-03-10] MEDS ORDERED: Non-Formulary Item 1 EACH (Quetiapine Fumarate [Seroquel] 400 MG Tablet) PO SCH (21:00)
[2023-03-10 21:04] LABS: Vancomycin, Trough 9.8 ug/mL
[2023-03-11] MEDS: oxyCODONE/Acetaminophen 5 mg/325 mg Tablet PO PRN (02:38)
[2023-03-11] MEDS: Ondansetron PF 4 MG/2 ML Vial IVP PRN (05:30)
[2023-03-11] MEDS: VANCOMYCIN 1.25 GM/250 ML BAG 1.25 GM in Premix Bag 1 BAG IVPB SCH ×3 (06:38→22:41)
[2023-03-11] MEDS: Levothyroxine Sodium 100 MCG TAB PO SCH (06:38)
[2023-03-11 07:46] LABS: Anion Gap 12 mmol/L (10-20); BUN (Urea Nitrogen) 13 mg/dL (8.9-20.6); Calc. Creatinine Clearance 134 mL/min (70-130); Calcium 8.8 mg/dL (7.8-10.44); Carbon Dioxide 24 mmol/L (22-29); Chloride 106 mmol/L (98-107); Estimated GFR 106; Glucose 94 mg/dL (70-105); Potassium 3.8 mmol/L (3.5-5.1); Sodium 138 mmol/L (136-145)
[2023-03-11] MEDS ORDERED: Promethazine HCl 25 MG in Sodium Chloride 0.9% 50 ML IVPB SCH (08:15)
[2023-03-11] MEDS ORDERED: Morphine 4 MG/ML VIAL SLOW IVP SCH (08:15)
[2023-03-11 08:25] LABS: #Eosinphils 0.1 thou/uL (0.0-0.7); #Monocytes 0.3 thou/uL (0.11-0.59); #Neutrophils 2.5 thou/uL (1.40-6.50); %Basophils 0.8 % (0.0-1.0); %Eosinophils 3.5 % (0.0-10.0); %Lymphocytes 24.4 % (21.0-51.0); %Monocytes 7.6 % (0.0-10.0); %Neutrophils 63.2 % (42.0-75.0); Hemoglobin 9.4 g/dL (14.0-18.0); Mean Corpuscular HGB CONC 30.3 g/dL (32.0-36.0); Mean Corpuscular Hemoglobin 25.2 pg (27.0-31.0); Mean Corpuscular Volume 83.1 fl (78.0-98.0); Mean Platelet Volume 10.6 fL (7.4-10.4); Platelet Count 189 10x3/uL (130-400); RBC Distribution Width 16.1 % (11.5-14.5); Red Blood Cell (RBC) Count 3.73 mill/uL (4.70-6.10)
[2023-03-11] MEDS: Cefepime 2 GM in Sodium Chloride 0.9% 100 ML IVPB SCH ×2 (09:29→20:56)
[2023-03-11] MEDS: Amlodipine 5 MG TAB PO SCH (09:29)
[2023-03-11] MEDS: DULoxetine 30 MG CAP PO SCH (09:30)
[2023-03-11] MEDS: Pregabalin 50 MG CAP PO SCH ×2 (09:30→20:57)
[2023-03-11] MEDS: Apixaban 5 MG TAB PO SCH ×2 (09:30→20:57)
[2023-03-11] MEDS: Senokot S 8.6-50 MG TAB PO SCH ×2 (09:30→20:59)
[2023-03-11] MEDS: Morphine 4 MG/ML VIAL SLOW IVP PRN ×3 (12:54→21:57)
[2023-03-11] MEDS ORDERED: predniSONE 20 MG TAB PO SCH (15:45)
[2023-03-11] MEDS: Promethazine HCl 25 MG in Sodium Chloride 0.9% 50 ML IVPB PRN (17:45)
[2023-03-11] MEDS: Atorvastatin Calcium 20 MG TAB PO SCH (20:57)
[2023-03-11] MEDS: QUEtiapine 200 MG TAB PO SCH (20:59)
[2023-03-11] MEDS: ALPRAZolam 1 MG TAB PO PRN (21:56)
[2023-03-11 22:13] LABS: Vancomycin, Trough 18.8 ug/mL
[2023-03-12] MEDS: Morphine 4 MG/ML VIAL SLOW IVP PRN ×5 (04:17→21:37)
[2023-03-12] MEDS: Promethazine HCl 25 MG in Sodium Chloride 0.9% 50 ML IVPB PRN ×2 (04:17→12:30)
[2023-03-12] MEDS: VANCOMYCIN 1.25 GM/250 ML BAG 1.25 GM in Premix Bag 1 BAG IVPB SCH ×3 (05:25→22:55)
[2023-03-12] MEDS: Levothyroxine Sodium 100 MCG TAB PO SCH (05:25)
[2023-03-12] MEDS: ALPRAZolam 1 MG TAB PO PRN ×3 (05:30→21:37)
[2023-03-12 06:17] LABS: #Monocytes 0.1 thou/uL (0.11-0.59); #Neutrophils 2.3 thou/uL (1.40-6.50); %Basophils 0.4 % (0.0-1.0); %Lymphocytes 14.4 % (21.0-51.0); %Monocytes 4.9 % (0.0-10.0); %Neutrophils 79.6 % (42.0-75.0); Hemoglobin 9.5 g/dL (14.0-18.0); Mean Corpuscular HGB CONC 30.8 g/dL (32.0-36.0); Mean Corpuscular Hemoglobin 25.2 pg (27.0-31.0); Mean Corpuscular Volume 81.7 fl (78.0-98.0); Mean Platelet Volume 9.6 fL (7.4-10.4); Platelet Count 254 10x3/uL (130-400); RBC Distribution Width 15.2 % (11.5-14.5); Red Blood Cell (RBC) Count 3.77 mill/uL (4.70-6.10); White Blood Cell (WBC) Count 2.9 10x3/uL (4.8-10.8)
[2023-03-12] MEDS: Ondansetron PF 4 MG/2 ML Vial IVP PRN (08:35)
[2023-03-12] MEDS: Cefepime 2 GM in Sodium Chloride 0.9% 100 ML IVPB SCH ×2 (08:38→20:30)
[2023-03-12] MEDS: Apixaban 5 MG TAB PO SCH ×2 (08:39→20:31)
[2023-03-12] MEDS: Pregabalin 50 MG CAP PO SCH ×2 (08:40→20:30)
[2023-03-12] MEDS: DULoxetine 30 MG CAP PO SCH (08:41)
[2023-03-12] MEDS: predniSONE 20 MG TAB PO SCH (08:41)
[2023-03-12] MEDS: Senokot S 8.6-50 MG TAB PO SCH ×2 (08:42→20:32)
[2023-03-12] MEDS: Amlodipine 5 MG TAB PO SCH (08:42)
[2023-03-12] MEDS ORDERED: guaiFENesin/DM ER PO SCH (15:45)
[2023-03-12] MEDS: QUEtiapine 200 MG TAB PO SCH (20:31)
[2023-03-12] MEDS: Atorvastatin Calcium 20 MG TAB PO SCH (20:31)
[2023-03-12] MEDS: guaiFENesin/DM ER PO SCH (20:32)
[2023-03-12 21:43] LABS: Vancomycin, Trough 19.4 ug/mL
[2023-03-13] MEDS: Promethazine HCl 25 MG in Sodium Chloride 0.9% 50 ML IVPB PRN ×2 (01:17→11:01)
[2023-03-13] MEDS: Morphine 4 MG/ML VIAL SLOW IVP PRN ×5 (02:12→20:06)
[2023-03-13] MEDS: Ondansetron PF 4 MG/2 ML Vial IVP PRN (06:02)
[2023-03-13] MEDS: VANCOMYCIN 1.25 GM/250 ML BAG 1.25 GM in Premix Bag 1 BAG IVPB SCH ×3 (06:11→21:27)
[2023-03-13] MEDS: Levothyroxine Sodium 100 MCG TAB PO SCH (06:11)
[2023-03-13 06:46] LABS: #Eosinphils 0.1 thou/uL (0.0-0.7); #Monocytes 0.4 thou/uL (0.11-0.59); #Neutrophils 3.1 thou/uL (1.40-6.50); %Basophils 0.4 % (0.0-1.0); %Eosinophils 1.5 % (0.0-10.0); %Lymphocytes 23.1 % (21.0-51.0); %Monocytes 9.2 % (0.0-10.0); %Neutrophils 65.2 % (42.0-75.0); Hemoglobin 9.3 g/dL (14.0-18.0); Mean Corpuscular Hemoglobin 24.8 pg (27.0-31.0); Mean Platelet Volume 8.9 fL (7.4-10.4); Platelet Count 243 10x3/uL (130-400); Red Blood Cell (RBC) Count 3.75 mill/uL (4.70-6.10); White Blood Cell (WBC) Count 4.8 10x3/uL (4.8-10.8)
[2023-03-13] MEDS: Pregabalin 50 MG CAP PO SCH ×2 (08:17→20:04)
[2023-03-13] MEDS: Cefepime 2 GM in Sodium Chloride 0.9% 100 ML IVPB SCH ×2 (08:17→20:03)
[2023-03-13] MEDS: DULoxetine 30 MG CAP PO SCH (08:18)
[2023-03-13] MEDS: predniSONE 20 MG TAB PO SCH (08:18)
[2023-03-13] MEDS: Apixaban 5 MG TAB PO SCH ×2 (08:18→20:03)
[2023-03-13] MEDS: guaiFENesin/DM ER PO SCH ×2 (08:19→20:04)
[2023-03-13] MEDS: Amlodipine 5 MG TAB PO SCH (08:19)
[2023-03-13] MEDS: Senokot S 8.6-50 MG TAB PO SCH ×2 (08:20→20:06)
[2023-03-13] MEDS: ALPRAZolam 1 MG TAB PO PRN ×2 (13:44→20:06)
[2023-03-13] MEDS: Atorvastatin Calcium 20 MG TAB PO SCH (20:04)
[2023-03-13] MEDS: QUEtiapine 200 MG TAB PO SCH (20:05)
[2023-03-14] MEDS: Promethazine HCl 25 MG in Sodium Chloride 0.9% 50 ML IVPB PRN ×2 (01:12→10:44)
[2023-03-14] MEDS: Morphine 4 MG/ML VIAL SLOW IVP PRN ×6 (01:12→23:39)
[2023-03-14] MEDS: VANCOMYCIN 1.25 GM/250 ML BAG 1.25 GM in Premix Bag 1 BAG IVPB SCH ×2 (05:13→12:35)
[2023-03-14] MEDS: Ondansetron PF 4 MG/2 ML Vial IVP PRN (05:13)
[2023-03-14] MEDS: Levothyroxine Sodium 100 MCG TAB PO SCH (05:13)
[2023-03-14] MEDS: Cefepime 2 GM in Sodium Chloride 0.9% 100 ML IVPB SCH (07:58)
[2023-03-14] MEDS: DULoxetine 30 MG CAP PO SCH (08:03)
[2023-03-14] MEDS: Amlodipine 5 MG TAB PO SCH (08:03)
[2023-03-14] MEDS: Senokot S 8.6-50 MG TAB PO SCH ×2 (08:04→20:24)
[2023-03-14] MEDS: predniSONE 20 MG TAB PO SCH (08:04)
[2023-03-14] MEDS: Pregabalin 50 MG CAP PO SCH ×2 (08:04→20:20)
[2023-03-14] MEDS: guaiFENesin/DM ER PO SCH ×2 (08:04→20:21)
[2023-03-14] MEDS: Apixaban 5 MG TAB PO SCH ×2 (08:04→20:21)
[2023-03-14] MEDS: ALPRAZolam 1 MG TAB PO PRN ×2 (10:47→20:22)
[2023-03-14] MEDS: Atorvastatin Calcium 20 MG TAB PO SCH (20:21)
[2023-03-14] MEDS: QUEtiapine 200 MG TAB PO SCH (20:21)
[2023-03-14] MEDS: oxyCODONE/Acetaminophen 5 mg/325 mg Tablet PO PRN (20:22)
[2023-03-15] MEDS: Morphine 4 MG/ML VIAL SLOW IVP PRN ×2 (03:26→07:55)
[2023-03-15] MEDS: ALPRAZolam 1 MG TAB PO PRN (03:27)
[2023-03-15] MEDS: Levothyroxine Sodium 100 MCG TAB PO SCH (05:13)
[2023-03-15] MEDS: oxyCODONE/Acetaminophen 5 mg/325 mg Tablet PO PRN (05:14)
[2023-03-15] MEDS ORDERED: LevoFLOXacin 500 MG TAB PO SCH (06:00)
[2023-03-15] MEDS: guaiFENesin/DM ER PO SCH (07:59)
[2023-03-15] MEDS: DULoxetine 30 MG CAP PO SCH (07:59)
[2023-03-15] MEDS: Senokot S 8.6-50 MG TAB PO SCH (07:59)
[2023-03-15] MEDS: predniSONE 20 MG TAB PO SCH (07:59)
[2023-03-15] MEDS: Pregabalin 50 MG CAP PO SCH (08:00)
[2023-03-15] MEDS: Apixaban 5 MG TAB PO SCH (08:00)
[2023-03-15] MEDS: Amlodipine 5 MG TAB PO SCH (08:00)
[2023-03-15] MEDS: HYDROcodone/Acetaminophen 10/325 mg Tablet PO PRN (10:44)
[2023-03-15 11:44] VITALS: BP 148/97; TEMP 98
== END 2023-03-15 11:57 | disposition home or self-care (01) | DRG 193 ==
LOC: ERS 07:04 → T4-A 09:08 → OBSVTOIN 10:28
PROVIDERS: ADMIT Internal Medicine; ATTEND Internal Medicine
DX: J18.9 Pneumonia, unspecified organism (principal); J96.21 Acute and chronic respiratory failure with hypoxia; K50.10 Crohn's disease of large intestine without complications; J44.1 Chronic obstructive pulmonary disease with (acute) exacerbation; J44.0 Chronic obstructive pulmonary disease with (acute) lower respiratory infection; N17.9 Acute kidney failure, unspecified; I48.0 Paroxysmal atrial fibrillation; Z20.822 Contact with and (suspected) exposure to COVID-19; F41.9 Anxiety disorder, unspecified; F32.A Depression, unspecified; E06.3 Autoimmune thyroiditis; E03.9 Hypothyroidism, unspecified; R10.11 Right upper quadrant pain; R10.31 Right lower quadrant pain; I12.9 Hypertensive chronic kidney disease with stage 1 through stage 4 chronic kidney disease, or unspecified chronic kidney disease; N18.9 Chronic kidney disease, unspecified; Z79.890 Hormone replacement therapy; Z88.8 Allergy status to other drugs, medicaments and biological substances; Z88.0 Allergy status to penicillin; Z79.899 Other long term (current) drug therapy; Z79.01 Long term (current) use of anticoagulants; Z90.49 Acquired absence of other specified parts of digestive tract; Z87.442 Personal history of urinary calculi; Z79.52 Long term (current) use of systemic steroids
CPT/HCPCS: 36415; 71045; 71275; 74176; 80048; 80053; 80202; 80306; 82565; 83605; 83690; 83735; 83880; 84145; 84484; 85025; 86140; 87040; 87389; 87449; 87633; 87899; 93005; 94760; 96365; 96367; 96375; G0378; J0692; J0696; J2270; J2405; J2550; J2930; J3370; J3490; J7050; J7512; J7611; J7620; Q0162; Q9967

== ENCOUNTER 2023-03-20 21:34 | Emergency (ER) | payer OTHER, MEDICAID ==
[2023-03-20 22:28] LABS: #Eosinphils 0.2 thou/uL (0.0-0.7); #Monocytes 0.4 thou/uL (0.11-0.59); #Neutrophils 2.8 thou/uL (1.40-6.50); %Basophils 0.7 % (0.0-1.0); %Eosinophils 3.4 % (0.0-10.0); %Lymphocytes 35.4 % (21.0-51.0); %Monocytes 7.7 % (0.0-10.0); %Neutrophils 52.6 % (42.0-75.0); Hematocrit 35.3 % (42.0-52.0); Hemoglobin 11.1 g/dL (14.0-18.0); Mean Corpuscular HGB CONC 31.4 g/dL (32.0-36.0); Mean Corpuscular Hemoglobin 24.6 pg (27.0-31.0); Mean Corpuscular Volume 78.3 fl (78.0-98.0); Mean Platelet Volume 9.9 fL (7.4-10.4); Platelet Count 333 10x3/uL (130-400); RBC Distribution Width 14.5 % (11.5-14.5); Red Blood Cell (RBC) Count 4.51 mill/uL (4.70-6.10); White Blood Cell (WBC) Count 5.3 10x3/uL (4.8-10.8)
[2023-03-20 22:50] LABS: ALT (SGPT) 16 U/L (8-55); AST (SGOT) 19 U/L (5-34); Albumin 4.5 g/dL (3.5-5.0); Alkaline Phosphatase 140 U/L (40-110); Anion Gap 17 mmol/L (10-20); BUN (Urea Nitrogen) 21 mg/dL (8.9-20.6); Bilirubin, Total 0.3 mg/dL (0.2-1.2); CK (CPK) 103 U/L (30-200); Calc. Creatinine Clearance 0 mL/min (70-130); Calcium 10.1 mg/dL (7.8-10.44); Carbon Dioxide 28 mmol/L (22-29); Chloride 102 mmol/L (98-107); Estimated GFR 71; Globulin 3.1 g/dL (2.4-3.5); Glucose 98 mg/dL (70-105); Potassium 3.6 mmol/L (3.5-5.1); Protein, Total 7.6 g/dL (6.0-8.3); Sodium 143 mmol/L (136-145)
[2023-03-20 22:55] LABS: Acetaminophen Less than 10 mcg/mL (10.0-30.0); Alcohol Less than 10.0 mg/dL (Less than 10); Salicylate Less than 8.0 mg/dL (15.0-30.0)
[2023-03-21 01:33] LABS: Bacteria/HPF None Seen HPF (None Seen); Bilirubin Negative (Negative); Blood, Urine 2+ (Negative); CAUTI Indications for Culture Alt mental st,lethar; Clarity Clear (Clear); Glucose, Urine (Dipstick) Normal (Negative); Ketone, Urine Negative (Negative); Leukocyte Negative Leu/uL (Negative); Mucous/LPF Rare LPF (<2+); Nitrite Negative (Negative); Protein, Urine (Dipstick) 10 mg/dL (Neg-Trace); RBC/HPF Greater than 50 HPF (0-3); Specific Gravity, Urine 1.023 (1.002-1.036); Squamous Epithelial 0-3 HPF (0-3); Urobilinogen Normal mg/dL (Less than 2); pH, Urine 6.5 (5.0-9.0)
[2023-03-21 01:35] LABS: Urine Culture Reflex No No
[2023-03-21 01:38] LABS: Amphetamine Not Detected (NotDetected); Barbiturates Screen Not Detected (NotDetected); Benzodiazepine Screen Not Detected (NotDetected); Cocaine Metabolite Screen Not Detected (NotDetected); Methadone Not Detected (NotDetected); Methamphetamine Not Detected (NotDetected); Opiate Screen Detected (NotDetected); Oxycodone Screen Detected (NotDetected); Phencyclidine (PCP) Not Detected (NotDetected); THC/Cannabinoid Screen Detected (NotDetected); Tricyclic Screen Detected (NotDetected)
== END 2023-03-21 05:31 | disposition home or self-care (01) ==
LOC: ERS 21:34
DX: R45.851 Suicidal ideations (principal); I10 Essential (primary) hypertension; I48.91 Unspecified atrial fibrillation; Z79.01 Long term (current) use of anticoagulants; Z79.899 Other long term (current) drug therapy
CPT/HCPCS: 36415; 70450; 71045; 74176; 80053; 80306; 80307; 81001; 82140; 82550; 83605; 85025; 87040; 87077; 87086; 87149; 93005; 94760

== ENCOUNTER 2023-03-21 23:06 | Emergency (ER) | payer OTHER, MEDICAID ==
[2023-03-22 00:44] LABS: #Basophils 0.1 thou/uL (0.0-0.2); #Eosinphils 0.2 thou/uL (0.0-0.7); #Monocytes 0.7 thou/uL (0.11-0.59); #Neutrophils 4.4 thou/uL (1.40-6.50); %Basophils 1.1 % (0.0-1.0); %Eosinophils 3.1 % (0.0-10.0); %Lymphocytes 25.2 % (21.0-51.0); %Neutrophils 61.2 % (42.0-75.0); Hematocrit 33.3 % (42.0-52.0); Hemoglobin 10.6 g/dL (14.0-18.0); Mean Corpuscular HGB CONC 31.8 g/dL (32.0-36.0); Mean Corpuscular Hemoglobin 24.7 pg (27.0-31.0); Mean Corpuscular Volume 77.6 fl (78.0-98.0); Platelet Count 339 10x3/uL (130-400); RBC Distribution Width 14.8 % (11.5-14.5); Red Blood Cell (RBC) Count 4.29 mill/uL (4.70-6.10); White Blood Cell (WBC) Count 7.2 10x3/uL (4.8-10.8)
[2023-03-22 01:07] LABS: Acetaminophen Less than 10 mcg/mL (10.0-30.0); Alcohol Less than 10.0 mg/dL (Less than 10); Lipase 18 U/L (8-78); Salicylate Less than 8.0 mg/dL (15.0-30.0)
[2023-03-22 01:13] LABS: ALT (SGPT) 15 U/L (8-55); AST (SGOT) 18 U/L (5-34); Albumin 4.5 g/dL (3.5-5.0); Alkaline Phosphatase 129 U/L (40-110); Anion Gap 17 mmol/L (10-20); BUN (Urea Nitrogen) 32 mg/dL (8.9-20.6); Bilirubin, Total 0.5 mg/dL (0.2-1.2); CK (CPK) 99 U/L (30-200); Calc. Creatinine Clearance 0 mL/min (70-130); Calcium 10.1 mg/dL (7.8-10.44); Carbon Dioxide 22 mmol/L (22-29); Chloride 104 mmol/L (98-107); Estimated GFR 48; Globulin 2.8 g/dL (2.4-3.5); Glucose 99 mg/dL (70-105); Potassium 3.8 mmol/L (3.5-5.1); Protein, Total 7.3 g/dL (6.0-8.3); Sodium 139 mmol/L (136-145)
== END 2023-03-22 02:00 | disposition home or self-care (01) ==
LOC: ERS 23:06
DX: R41.82 Altered mental status, unspecified (principal); I10 Essential (primary) hypertension; Z79.01 Long term (current) use of anticoagulants
CPT/HCPCS: 36415; 70450; 71045; 74176; 80053; 80306; 80307; 81001; 82140; 82550; 83605; 83690; 85025; 87040; 87077; 87086; 87149; 93005; 94760

== ENCOUNTER 2023-04-14 14:58 | Emergency (ER) | payer OTHER ==
[2023-04-14 16:04] LABS: #Eosinphils 0.2 thou/uL (0.0-0.7); #Monocytes 0.4 thou/uL (0.11-0.59); %Basophils 0.7 % (0.0-1.0); %Eosinophils 2.8 % (0.0-10.0); %Lymphocytes 23.6 % (21.0-51.0); %Neutrophils 66.6 % (42.0-75.0); Hematocrit 36.8 % (42.0-52.0); Hemoglobin 11.1 g/dL (14.0-18.0); Mean Corpuscular HGB CONC 30.2 g/dL (32.0-36.0); Mean Corpuscular Hemoglobin 23.9 pg (27.0-31.0); Mean Corpuscular Volume 79.3 fl (78.0-98.0); Mean Platelet Volume 10.6 fL (7.4-10.4); Platelet Count 264 10x3/uL (130-400); RBC Distribution Width 15.8 % (11.5-14.5); Red Blood Cell (RBC) Count 4.64 mill/uL (4.70-6.10)
[2023-04-14 16:31] LABS: ALT (SGPT) 24 U/L (8-55); AST (SGOT) 14 U/L (5-34); Albumin 4.3 g/dL (3.5-5.0); Alkaline Phosphatase 145 U/L (40-110); Anion Gap 17 mmol/L (10-20); BUN (Urea Nitrogen) 21 mg/dL (8.9-20.6); Bilirubin, Total 0.4 mg/dL (0.2-1.2); Calc. Creatinine Clearance 0 mL/min (70-130); Calcium 9.3 mg/dL (7.8-10.44); Carbon Dioxide 23 mmol/L (22-29); Chloride 106 mmol/L (98-107); Estimated GFR 52; Globulin 2.5 g/dL (2.4-3.5); Glucose 131 mg/dL (70-105); Protein, Total 6.8 g/dL (6.0-8.3); Sodium 142 mmol/L (136-145)
[2023-04-14 16:51] LABS: Troponin I Less than 0.010 ng/mL (< 0.028)
[2023-04-14] MEDS ORDERED: levETIRAcetam 500 MG/5 ML VIAL ONE ×2 (17:39→17:44)
[2023-04-14 19:00] LABS: Bacteria/HPF None Seen HPF (None Seen); Bilirubin Negative (Negative); Blood, Urine 3+ (Negative); CAUTI Indications for Culture Alt mental st,lethar; Clarity Clear (Clear); Glucose, Urine (Dipstick) Normal (Negative); Ketone, Urine Negative (Negative); Leukocyte Negative Leu/uL (Negative); Nitrite Negative (Negative); Protein, Urine (Dipstick) 30 mg/dL (Neg-Trace); RBC/HPF 0-3 HPF (0-3); Specific Gravity, Urine 1.029 (1.002-1.036); Squamous Epithelial None Seen HPF (0-3); Urobilinogen Normal mg/dL (Less than 2); WBC/HPF 0-3 HPF (0-3); pH, Urine 5.5 (5.0-9.0)
[2023-04-14 19:03] LABS: Amphetamine Not Detected (NotDetected); Barbiturates Screen Not Detected (NotDetected); Benzodiazepine Screen Detected (NotDetected); Cocaine Metabolite Screen Not Detected (NotDetected); Methadone Not Detected (NotDetected); Methamphetamine Not Detected (NotDetected); Opiate Screen Not Detected (NotDetected); Oxycodone Screen Detected (NotDetected); Phencyclidine (PCP) Not Detected (NotDetected); THC/Cannabinoid Screen Detected (NotDetected); Tricyclic Screen Detected (NotDetected); Urine Culture Reflex No No
== END 2023-04-14 19:37 | disposition home or self-care (01) ==
LOC: ERS 14:58
DX: R56.9 Unspecified convulsions (principal); I10 Essential (primary) hypertension; I48.91 Unspecified atrial fibrillation; Z79.01 Long term (current) use of anticoagulants
CPT/HCPCS: 80306; 81001; 83605; 84484; 93005; J1953; 36415; 80053; 84443; 85025; 96361; 96365

== ENCOUNTER 2023-04-21 03:17 | Emergency (ER) | payer OTHER ==
[2023-04-21 04:00] LABS: #Basophils 0.1 thou/uL (0.0-0.2); #Eosinphils 0.2 thou/uL (0.0-0.7); #Monocytes 0.5 thou/uL (0.11-0.59); #Neutrophils 4.2 thou/uL (1.40-6.50); %Basophils 0.8 % (0.0-1.0); %Eosinophils 2.5 % (0.0-10.0); %Lymphocytes 24.7 % (21.0-51.0); %Monocytes 7.6 % (0.0-10.0); %Neutrophils 64.2 % (42.0-75.0); Hematocrit 32.6 % (42.0-52.0); Hemoglobin 10.2 g/dL (14.0-18.0); Mean Corpuscular HGB CONC 31.3 g/dL (32.0-36.0); Mean Corpuscular Hemoglobin 23.8 pg (27.0-31.0); Mean Platelet Volume 10.1 fL (7.4-10.4); Platelet Count 228 10x3/uL (130-400); RBC Distribution Width 15.4 % (11.5-14.5); Red Blood Cell (RBC) Count 4.29 mill/uL (4.70-6.10); White Blood Cell (WBC) Count 6.5 10x3/uL (4.8-10.8)
[2023-04-21 04:24] LABS: ALT (SGPT) 32 U/L (8-55); AST (SGOT) 22 U/L (5-34); Albumin 4.3 g/dL (3.5-5.0); Alkaline Phosphatase 118 U/L (40-110); Anion Gap 14 mmol/L (10-20); BUN (Urea Nitrogen) 24 mg/dL (8.9-20.6); Bilirubin, Total 0.3 mg/dL (0.2-1.2); Calc. Creatinine Clearance 0 mL/min (70-130); Calcium 9.4 mg/dL (7.8-10.44); Carbon Dioxide 26 mmol/L (22-29); Chloride 104 mmol/L (98-107); Estimated GFR 52; Globulin 2.6 g/dL (2.4-3.5); Glucose 99 mg/dL (70-105); Potassium 3.5 mmol/L (3.5-5.1); Protein, Total 6.9 g/dL (6.0-8.3); Sodium 140 mmol/L (136-145)
[2023-04-21 04:34] LABS: Troponin I Less than 0.010 ng/mL (< 0.028)
[2023-04-21 04:56] LABS: Acetaminophen Less than 10 mcg/mL (10.0-30.0); Alcohol Less than 10.0 mg/dL (Less than 10); Salicylate Less than 8.0 mg/dL (15.0-30.0)
== END 2023-04-21 06:49 | disposition home or self-care (01) ==
LOC: ERS 03:17
DX: S09.90XA Unspecified injury of head, initial encounter (principal); R41.82 Altered mental status, unspecified; I48.91 Unspecified atrial fibrillation; Z79.01 Long term (current) use of anticoagulants; I10 Essential (primary) hypertension; Z79.899 Other long term (current) drug therapy; W19.XXXA Unspecified fall, initial encounter
CPT/HCPCS: 36415; 70450; 72125; 80053; 80307; 84484; 85025; 93005

== ENCOUNTER 2023-04-28 22:33 | Emergency (ER) | payer OTHER | END 2023-04-29 00:59 | disposition left against medical advice (07) | LOC: ERS 22:33 | DX: Z53.21 Procedure and treatment not carried out due to patient leaving prior to being seen by health care provider (principal) | CPT/HCPCS: 93005 ==

== ENCOUNTER 2023-04-29 09:34 | Emergency (ER) | payer OTHER ==
[2023-04-29] MEDS ORDERED: Mag-Al 1200 mg/1200 mg/30 ML UDCUP ONE (11:06)
[2023-04-29] MEDS ORDERED: Ondansetron ODT 4 MG TAB ONE (11:06)
[2023-04-29] MEDS ORDERED: Sucralfate 1 GM/10 ML UDCUP ONE (11:08)
[2023-04-29 11:45] LABS: Bacteria/HPF None Seen HPF (None Seen); Bilirubin Negative (Negative); Blood, Urine 1+ (Negative); CAUTI Indications for Culture Dysuria,urgency,freq; Clarity Clear (Clear); Glucose, Urine (Dipstick) Normal (Negative); Ketone, Urine Negative (Negative); Leukocyte Negative Leu/uL (Negative); Nitrite Negative (Negative); Protein, Urine (Dipstick) Negative (Neg-Trace); Squamous Epithelial None Seen HPF (0-3); Urobilinogen Normal mg/dL (Less than 2); pH, Urine 5.5 (5.0-9.0)
[2023-04-29 11:46] LABS: Urine Culture Reflex No No
[2023-04-29 12:02] LABS: #Basophils 0.1 thou/uL (0.0-0.2); #Eosinphils 0.1 thou/uL (0.0-0.7); #Monocytes 0.3 thou/uL (0.11-0.59); #Neutrophils 2.7 thou/uL (1.40-6.50); %Basophils 1.1 % (0.0-1.0); %Eosinophils 2.3 % (0.0-10.0); %Monocytes 7.5 % (0.0-10.0); %Neutrophils 61.9 % (42.0-75.0); Hematocrit 41.6 % (42.0-52.0); Hemoglobin 12.6 g/dL (14.0-18.0); Mean Corpuscular HGB CONC 30.3 g/dL (32.0-36.0); Mean Corpuscular Hemoglobin 23.8 pg (27.0-31.0); Mean Corpuscular Volume 78.6 fl (78.0-98.0); Mean Platelet Volume 11.1 fL (7.4-10.4); Platelet Count 166 10x3/uL (130-400); RBC Distribution Width 16.8 % (11.5-14.5); Red Blood Cell (RBC) Count 5.29 mill/uL (4.70-6.10); White Blood Cell (WBC) Count 4.4 10x3/uL (4.8-10.8)
[2023-04-29 12:32] LABS: ALT (SGPT) 21 U/L (8-55); AST (SGOT) 20 U/L (5-34); Albumin 4.6 g/dL (3.5-5.0); Alkaline Phosphatase 142 U/L (40-110); Anion Gap 14 mmol/L (10-20); BUN (Urea Nitrogen) 13 mg/dL (8.9-20.6); Bilirubin, Total 0.3 mg/dL (0.2-1.2); Calc. Creatinine Clearance 0 mL/min (70-130); Calcium 9.7 mg/dL (7.8-10.44); Carbon Dioxide 23 mmol/L (22-29); Chloride 104 mmol/L (98-107); Estimated GFR 102; Globulin 3.1 g/dL (2.4-3.5); Glucose 103 mg/dL (70-105); Lipase 4 U/L (8-78); Protein, Total 7.7 g/dL (6.0-8.3); Sodium 137 mmol/L (136-145)
[2023-04-29 12:40] LABS: Amphetamine Not Detected (NotDetected); Barbiturates Screen Not Detected (NotDetected); Benzodiazepine Screen Detected (NotDetected); Cocaine Metabolite Screen Not Detected (NotDetected); Methadone Not Detected (NotDetected); Methamphetamine Not Detected (NotDetected); Opiate Screen Not Detected (NotDetected); Oxycodone Screen Detected (NotDetected); Phencyclidine (PCP) Not Detected (NotDetected); THC/Cannabinoid Screen Detected (NotDetected); Tricyclic Screen Not Detected (NotDetected)
[2023-04-29 13:03] LABS: Troponin I Less than 0.010 ng/mL (< 0.028)
== END 2023-04-29 13:32 | disposition home or self-care (01) ==
LOC: ERS 09:34
DX: R10.13 Epigastric pain (principal); I48.91 Unspecified atrial fibrillation
CPT/HCPCS: 36415; 71045; 80053; 80306; 81001; 83690; 84484; 85025; 93005; Q0162

== ENCOUNTER 2023-05-05 23:48 | Emergency (ER) | payer OTHER ==
[2023-05-06 01:17] LABS: Bacteria/HPF None Seen HPF (None Seen); Bilirubin Negative (Negative); Blood, Urine 3+ (Negative); CAUTI Indications for Culture Pelvic or flank pain; Calcium Oxalate Crystals Rare HPF (None Seen); Clarity Turbid (Clear); Glucose, Urine (Dipstick) Normal (Negative); Ketone, Urine Trace mg/dL (Negative); Leukocyte Negative Leu/uL (Negative); Mucous/LPF Rare LPF (<2+); Nitrite Negative (Negative); Protein, Urine (Dipstick) 50 mg/dL (Neg-Trace); RBC/HPF Greater than 50 HPF (0-3); Specific Gravity, Urine 1.036 (1.002-1.036); Squamous Epithelial None Seen HPF (0-3); Urobilinogen Normal mg/dL (Less than 2); pH, Urine 5.5 (5.0-9.0)
[2023-05-06 01:29] LABS: Urine Culture Reflex Yes Yes
[2023-05-06] MEDS ORDERED: Morphine 4 MG/ML VIAL ONE (01:40)
[2023-05-06] MEDS ORDERED: Ondansetron PF 4 MG/2 ML Vial ONE (01:40)
[2023-05-06] MEDS ORDERED: Ondansetron ODT 4 MG TAB ONE (02:02)
== END 2023-05-06 02:49 | disposition home or self-care (01) ==
LOC: ERS 23:48
DX: N13.2 Hydronephrosis with renal and ureteral calculous obstruction (principal)
CPT/HCPCS: 74176; 81001; 87086; 96372; J2270; J2405; Q0162

== ENCOUNTER 2023-05-19 09:59 | Emergency (ER) | payer OTHER | END 2023-05-19 11:33 | disposition home or self-care (01) | LOC: ERS 09:59 | DX: L08.9 Local infection of the skin and subcutaneous tissue, unspecified (principal); I48.91 Unspecified atrial fibrillation | CPT/HCPCS: 99283 ==

== ENCOUNTER 2023-05-20 22:12 | Emergency (ER) | payer OTHER, MEDICAID ==
[2023-05-20 23:11] LABS: #Eosinphils 0.1 thou/uL (0.0-0.7); #Monocytes 0.5 thou/uL (0.11-0.59); #Neutrophils 2.7 thou/uL (1.40-6.50); %Basophils 0.4 % (0.0-1.0); %Eosinophils 1.5 % (0.0-10.0); %Lymphocytes 30.4 % (21.0-51.0); %Monocytes 11.3 % (0.0-10.0); Hematocrit 38.4 % (42.0-52.0); Hemoglobin 12.1 g/dL (14.0-18.0); Mean Corpuscular HGB CONC 31.5 g/dL (32.0-36.0); Mean Corpuscular Hemoglobin 23.8 pg (27.0-31.0); Mean Corpuscular Volume 75.6 fl (78.0-98.0); Mean Platelet Volume 10.9 fL (7.4-10.4); Platelet Count 243 10x3/uL (130-400); RBC Distribution Width 17.4 % (11.5-14.5); Red Blood Cell (RBC) Count 5.08 mill/uL (4.70-6.10); White Blood Cell (WBC) Count 4.8 10x3/uL (4.8-10.8)
[2023-05-20 23:34] LABS: Acetaminophen Less than 10 mcg/mL (10.0-30.0); Alcohol Less than 10.0 mg/dL (Less than 10); Salicylate Less than 8.0 mg/dL (15.0-30.0)
[2023-05-20 23:35] LABS: ALT (SGPT) 19 U/L (8-55); AST (SGOT) 18 U/L (5-34); Albumin 4.6 g/dL (3.5-5.0); Alkaline Phosphatase 164 U/L (40-110); Anion Gap 17 mmol/L (10-20); BUN (Urea Nitrogen) 18 mg/dL (8.9-20.6); Bilirubin, Total 0.3 mg/dL (0.2-1.2); Calc. Creatinine Clearance 0 mL/min (70-130); Calcium 9.7 mg/dL (7.8-10.44); Carbon Dioxide 22 mmol/L (22-29); Chloride 103 mmol/L (98-107); Estimated GFR 87; Globulin 2.8 g/dL (2.4-3.5); Glucose 79 mg/dL (70-105); Protein, Total 7.4 g/dL (6.0-8.3); Sodium 138 mmol/L (136-145)
== END 2023-05-21 00:02 | disposition left against medical advice (07) ==
LOC: ERS 22:12
DX: F32.A Depression, unspecified (principal)
CPT/HCPCS: 36415; 80053; 80307; 85025; 93005

== ENCOUNTER 2023-06-01 11:03 | Emergency (ER) | payer OTHER, MEDICAID ==
[2023-06-01] MEDS ORDERED: Ondansetron PF 4 MG/2 ML Vial ONE (12:09)
[2023-06-01] MEDS ORDERED: Morphine 4 MG/ML VIAL ONE ×2 (12:09→14:53)
[2023-06-01 12:13] LABS: #Eosinphils 0.1 thou/uL (0.0-0.7); #Monocytes 0.3 thou/uL (0.11-0.59); #Neutrophils 2.7 thou/uL (1.40-6.50); %Basophils 0.7 % (0.0-1.0); %Eosinophils 1.9 % (0.0-10.0); %Monocytes 6.6 % (0.0-10.0); %Neutrophils 64.6 % (42.0-75.0); Hematocrit 39.2 % (42.0-52.0); Hemoglobin 12.3 g/dL (14.0-18.0); Mean Corpuscular HGB CONC 31.4 g/dL (32.0-36.0); Mean Corpuscular Hemoglobin 23.7 pg (27.0-31.0); Mean Corpuscular Volume 75.4 fl (78.0-98.0); Platelet Count 296 10x3/uL (130-400); RBC Distribution Width 16.4 % (11.5-14.5); White Blood Cell (WBC) Count 4.1 10x3/uL (4.8-10.8)
[2023-06-01 12:35] LABS: ALT (SGPT) 34 U/L (8-55); AST (SGOT) 33 U/L (5-34); Albumin 4.8 g/dL (3.5-5.0); Alkaline Phosphatase 132 U/L (40-110); Anion Gap 15 mmol/L (10-20); BUN (Urea Nitrogen) 14 mg/dL (8.9-20.6); Bilirubin, Total 0.3 mg/dL (0.2-1.2); Calc. Creatinine Clearance 0 mL/min (70-130); Calcium 9.9 mg/dL (7.8-10.44); Carbon Dioxide 26 mmol/L (22-29); Chloride 103 mmol/L (98-107); Estimated GFR 99; Globulin 2.7 g/dL (2.4-3.5); Glucose 108 mg/dL (70-105); Lipase 22 U/L (8-78); Potassium 3.9 mmol/L (3.5-5.1); Protein, Total 7.5 g/dL (6.0-8.3); Sodium 140 mmol/L (136-145)
[2023-06-01 12:38] LABS: Troponin I Less than 0.010 ng/mL (< 0.028)
[2023-06-01 15:02] LABS: Troponin I Less than 0.010 ng/mL (< 0.028)
== END 2023-06-01 15:47 | disposition home or self-care (01) ==
LOC: ERS 11:03
DX: R07.9 Chest pain, unspecified (principal); I10 Essential (primary) hypertension; E64.9 Sequelae of unspecified nutritional deficiency; I48.91 Unspecified atrial fibrillation; Z79.01 Long term (current) use of anticoagulants; Z79.899 Other long term (current) drug therapy
CPT/HCPCS: 36415; 71045; 80053; 83690; 84484; 85025; 93005; 96374; 96375; 96376; J2270; J2405

== ENCOUNTER 2023-06-02 08:12 | Inpatient (IN) | payer OTHER, MEDICAID ==
[2023-06-02] MEDS ORDERED: Iopamidol-370 76% 500 ML MDV (1 ML CHARGE) ONE (09:21)
[2023-06-02 09:43] LABS: #Eosinphils 0.1 thou/uL (0.0-0.7); #Monocytes 0.3 thou/uL (0.11-0.59); %Basophils 0.5 % (0.0-1.0); %Eosinophils 1.9 % (0.0-10.0); %Lymphocytes 19.4 % (21.0-51.0); %Monocytes 7.6 % (0.0-10.0); %Neutrophils 70.4 % (42.0-75.0); Hematocrit 34.8 % (42.0-52.0); Hemoglobin 10.7 g/dL (14.0-18.0); Mean Corpuscular HGB CONC 30.7 g/dL (32.0-36.0); Mean Corpuscular Hemoglobin 23.7 pg (27.0-31.0); Mean Platelet Volume 10.8 fL (7.4-10.4); Platelet Count 264 10x3/uL (130-400); RBC Distribution Width 16.5 % (11.5-14.5); Red Blood Cell (RBC) Count 4.52 mill/uL (4.70-6.10); White Blood Cell (WBC) Count 4.3 10x3/uL (4.8-10.8)
[2023-06-02 10:07] LABS: ALT (SGPT) 34 U/L (8-55); AST (SGOT) 26 U/L (5-34); Albumin 4.4 g/dL (3.5-5.0); Alkaline Phosphatase 127 U/L (40-110); Anion Gap 14 mmol/L (10-20); BUN (Urea Nitrogen) 24 mg/dL (8.9-20.6); Bilirubin, Total 0.3 mg/dL (0.2-1.2); Calc. Creatinine Clearance 0 mL/min (70-130); Calcium 9.4 mg/dL (7.8-10.44); Carbon Dioxide 21 mmol/L (22-29); Chloride 107 mmol/L (98-107); Estimated GFR 70; Globulin 2.4 g/dL (2.4-3.5); Glucose 126 mg/dL (70-105); Lipase 10 U/L (8-78); Potassium 4.4 mmol/L (3.5-5.1); Protein, Total 6.8 g/dL (6.0-8.3); Sodium 138 mmol/L (136-145)
[2023-06-02 10:10] LABS: Troponin I Less than 0.010 ng/mL (< 0.028)
[2023-06-02] MEDS ORDERED: Pantoprazole 40 MG VIAL ONE (10:29)
[2023-06-02 12:19] LABS: Acetaminophen Less than 10 mcg/mL (10.0-30.0); Alcohol Less than 10.0 mg/dL (Less than 10); Salicylate Less than 8.0 mg/dL (15.0-30.0)
[2023-06-02 12:53] LABS: Amphetamine Not Detected (NotDetected); Barbiturates Screen Not Detected (NotDetected); Benzodiazepine Screen Detected (NotDetected); Cocaine Metabolite Screen Not Detected (NotDetected); Methadone Not Detected (NotDetected); Methamphetamine Not Detected (NotDetected); Opiate Screen Detected (NotDetected); Oxycodone Screen Not Detected (NotDetected); Phencyclidine (PCP) Detected (NotDetected); THC/Cannabinoid Screen Detected (NotDetected); Tricyclic Screen Detected (NotDetected)
[2023-06-02] MEDS ORDERED: Ondansetron ODT 4 MG TAB PO PRN (14:28)
[2023-06-02] MEDS ORDERED: Acetaminophen 325 MG TAB PO PRN (14:28)
[2023-06-02] MEDS ORDERED: FLU VACC QS2023-24(6MOS UP)/PF 60 MCG/0.5 ML SYRINGE IM ONE (15:45)
[2023-06-02 17:14] VITALS: BMI 26.6
[2023-06-02] MEDS ORDERED: hydrOXYzine 25 MG TAB PO PRN (18:43)
[2023-06-02] MEDS ORDERED: Cholecalciferol 1,000 UNITS (25 MCG) TAB PO SCH (18:45)
[2023-06-02 18:48] LABS: Hematocrit 32.7 % (42.0-52.0); Hemoglobin 9.9 g/dL (14.0-18.0)
[2023-06-02] MEDS ORDERED: Atorvastatin Calcium 20 MG TAB PO SCH (21:00)
[2023-06-02] MEDS ORDERED: Non-Formulary Item 1 EACH (Oxycodone Hcl/Acetaminophen [Oxycodone-Acetaminophen 10-325] 1 PO PRN (21:09)
[2023-06-02] MEDS ORDERED: oxyCODONE/Acetaminophen 5 mg/325 mg Tablet PO PRN (21:18)
[2023-06-02] MEDS: Amlodipine 5 MG TAB PO SCH (22:44)
[2023-06-03] MEDS ORDERED: Lidocaine 4% Patch TD SCH ×2 (00:15→21:00)
[2023-06-03] MEDS ORDERED: Melatonin 3 MG TAB PO SCH ×2 (00:15→21:00)
[2023-06-03 01:08] LABS: Troponin I Less than 0.010 ng/mL (< 0.028)
[2023-06-03 04:08] LABS: #Eosinphils 0.1 thou/uL (0.0-0.7); #Monocytes 0.3 thou/uL (0.11-0.59); #Neutrophils 2.4 thou/uL (1.40-6.50); %Basophils 0.8 % (0.0-1.0); %Eosinophils 3.1 % (0.0-10.0); %Lymphocytes 25.7 % (21.0-51.0); %Monocytes 7.5 % (0.0-10.0); %Neutrophils 62.9 % (42.0-75.0); Hemoglobin 10.5 g/dL (14.0-18.0); Mean Corpuscular HGB CONC 30.9 g/dL (32.0-36.0); Mean Corpuscular Hemoglobin 23.7 pg (27.0-31.0); Mean Corpuscular Volume 76.7 fl (78.0-98.0); Mean Platelet Volume 10.1 fL (7.4-10.4); Platelet Count 245 10x3/uL (130-400); RBC Distribution Width 16.5 % (11.5-14.5); Red Blood Cell (RBC) Count 4.43 mill/uL (4.70-6.10); White Blood Cell (WBC) Count 3.9 10x3/uL (4.8-10.8)
[2023-06-03 04:29] LABS: Anion Gap 12 mmol/L (10-20); BUN (Urea Nitrogen) 17 mg/dL (8.9-20.6); Calc. Creatinine Clearance 128 mL/min (70-130); Calcium 9.4 mg/dL (7.8-10.44); Carbon Dioxide 27 mmol/L (22-29); Chloride 104 mmol/L (98-107); Estimated GFR 105; Glucose 98 mg/dL (70-105); Potassium 4.2 mmol/L (3.5-5.1); Sodium 139 mmol/L (136-145)
[2023-06-03] MEDS ORDERED: Ketorolac Tromethamine 30 MG/ML VIAL IVP SCH (04:30)
[2023-06-03] MEDS ORDERED: CeleCOXIB 100 MG CAP PO PRN (04:37)
[2023-06-03] MEDS ORDERED: CeleCOXIB 100 MG CAP PO SCH (04:45)
[2023-06-03] MEDS ORDERED: Levothyroxine 150 MCG TAB PO SCH (06:00)
[2023-06-03] MEDS ORDERED: HYDROcodone/Acetaminophen 10/325 mg Tablet PO ONE (08:26)
[2023-06-03 08:32] VITALS: BP 140/88; TEMP 98.1
[2023-06-03] MEDS ORDERED: oxyCODONE/Acetaminophen 5 mg/325 mg Tablet PO SCH (08:32)
[2023-06-03] MEDS ORDERED: DULoxetine 30 MG CAP PO SCH (09:00)
[2023-06-03] MEDS: Amlodipine 5 MG TAB PO SCH (10:30)
[2023-06-03] MEDS ORDERED: Transdermal Patch Removal TOP SCH (12:15)
[2023-06-04] MEDS ORDERED: Transdermal Patch Removal TOP SCH (09:00)
== END 2023-06-03 08:45 | disposition home or self-care (01) | DRG 92 ==
LOC: ERS 08:12 → 2NO 13:43
PROVIDERS: ADMIT Student in an Organized Health Care Education/Training Program; ATTEND Student in an Organized Health Care Education/Training Program
DX: G92.8 Other toxic encephalopathy (principal); J93.83 Other pneumothorax; S22.42XA Multiple fractures of ribs, left side, initial encounter for closed fracture; K92.0 Hematemesis; N20.2 Calculus of kidney with calculus of ureter; R91.1 Solitary pulmonary nodule; T50.915A Adverse effect of multiple unspecified drugs, medicaments and biological substances, initial encounter; I10 Essential (primary) hypertension; F41.8 Other specified anxiety disorders; G89.29 Other chronic pain; R41.82 Altered mental status, unspecified; G47.00 Insomnia, unspecified; E78.5 Hyperlipidemia, unspecified; I48.91 Unspecified atrial fibrillation; Z88.0 Allergy status to penicillin; Z88.8 Allergy status to other drugs, medicaments and biological substances; Z79.899 Other long term (current) drug therapy; Z79.890 Hormone replacement therapy; Z90.49 Acquired absence of other specified parts of digestive tract; Z98.890 Other specified postprocedural states; Z82.49 Family history of ischemic heart disease and other diseases of the circulatory system; E64.9 Sequelae of unspecified nutritional deficiency; Z79.01 Long term (current) use of anticoagulants
CPT/HCPCS: 36415; 71045; 71275; 72125; 74177; 80048; 80053; 80306; 80307; 82140; 82550; 83690; 83880; 84443; 84484; 85025; 86850; 86900; 86901; 93005; 93010; 96361; 96374; 96375; 96376; C9113; J2270; J2405; Q9967

== ENCOUNTER 2023-06-05 02:48 | Emergency (ER) | payer OTHER, MEDICAID | END 2023-06-05 03:13 | disposition left against medical advice (07) | LOC: ERS 02:48 | DX: Z53.21 Procedure and treatment not carried out due to patient leaving prior to being seen by health care provider (principal) ==

== ENCOUNTER 2023-06-11 08:45 | Emergency (ER) | payer OTHER, MEDICAID ==
[2023-06-11 09:44] LABS: #Eosinphils 0.2 thou/uL (0.0-0.7); #Monocytes 0.4 thou/uL (0.11-0.59); #Neutrophils 2.2 thou/uL (1.40-6.50); %Basophils 0.5 % (0.0-1.0); %Eosinophils 4.3 % (0.0-10.0); %Lymphocytes 29.3 % (21.0-51.0); %Neutrophils 54.9 % (42.0-75.0); Hematocrit 30.7 % (42.0-52.0); Hemoglobin 9.9 g/dL (14.0-18.0); Mean Corpuscular HGB CONC 32.2 g/dL (32.0-36.0); Mean Corpuscular Hemoglobin 24.1 pg (27.0-31.0); Mean Corpuscular Volume 74.7 fl (78.0-98.0); Mean Platelet Volume 11.4 fL (7.4-10.4); Platelet Count 225 10x3/uL (130-400); Red Blood Cell (RBC) Count 4.11 mill/uL (4.70-6.10)
[2023-06-11 10:41] LABS: CellaVision Operator ID LAB.GE; Microcytosis SLIGHT = 6-15 cells HPF (0-5); Platelet Adequacy Comment Platelets Normal; Polychromasia SLIGHT = 2-3 cells HPF (0-2)
[2023-06-11 10:45] LABS: Amphetamine Not Detected (NotDetected); Barbiturates Screen Not Detected (NotDetected); Benzodiazepine Screen Detected (NotDetected); Cocaine Metabolite Screen Not Detected (NotDetected); Methadone Not Detected (NotDetected); Methamphetamine Not Detected (NotDetected); Opiate Screen Detected (NotDetected); Oxycodone Screen Detected (NotDetected); Phencyclidine (PCP) Not Detected (NotDetected); THC/Cannabinoid Screen Detected (NotDetected); Tricyclic Screen Detected (NotDetected)
[2023-06-11 11:08] LABS: ALT (SGPT) 97 U/L (8-55); AST (SGOT) 72 U/L (5-34); Acetaminophen Less than 10 mcg/mL (10.0-30.0); Albumin 4.3 g/dL (3.5-5.0); Alkaline Phosphatase 258 U/L (40-110); Anion Gap 16 mmol/L (10-20); BUN (Urea Nitrogen) 31 mg/dL (8.9-20.6); Bilirubin, Total 0.5 mg/dL (0.2-1.2); CK (CPK) 791 U/L (30-200); Calc. Creatinine Clearance 0 mL/min (70-130); Calcium 8.7 mg/dL (7.8-10.44); Carbon Dioxide 22 mmol/L (22-29); Chloride 104 mmol/L (98-107); Estimated GFR 37; Globulin 2.1 g/dL (2.4-3.5); Glucose 91 mg/dL (70-105); Potassium 4.3 mmol/L (3.5-5.1); Protein, Total 6.4 g/dL (6.0-8.3); Salicylate Less than 8.0 mg/dL (15.0-30.0); Sodium 138 mmol/L (136-145)
[2023-06-11] MEDS ORDERED: HYDROcodone/Acetaminophen 10/325 mg Tablet ONE (15:09)
[2023-06-11 15:33] LABS: Anion Gap 12 mmol/L (10-20); BUN (Urea Nitrogen) 28 mg/dL (8.9-20.6); Calc. Creatinine Clearance 0 mL/min (70-130); Calcium 8.3 mg/dL (7.8-10.44); Carbon Dioxide 23 mmol/L (22-29); Chloride 106 mmol/L (98-107); Estimated GFR 58; Glucose 85 mg/dL (70-105); Sodium 137 mmol/L (136-145)
== END 2023-06-11 16:00 | disposition home or self-care (01) ==
LOC: ERS 08:45
DX: R41.82 Altered mental status, unspecified (principal); T50.905A Adverse effect of unspecified drugs, medicaments and biological substances, initial encounter; N17.9 Acute kidney failure, unspecified; I10 Essential (primary) hypertension; I24.9 Acute ischemic heart disease, unspecified; Z86.718 Personal history of other venous thrombosis and embolism; Z86.711 Personal history of pulmonary embolism
CPT/HCPCS: 36415; 36416; 80053; 80143; 80179; 80306; 82550; 85025; 93005; 96360; 96361; 80307

== ENCOUNTER 2023-06-25 21:56 | Emergency (ER) | payer OTHER, MEDICAID | END 2023-06-25 22:53 | disposition home or self-care (01) | LOC: ERS 21:56 | DX: R07.81 Pleurodynia (principal); I10 Essential (primary) hypertension; I48.91 Unspecified atrial fibrillation; I24.9 Acute ischemic heart disease, unspecified; Z86.711 Personal history of pulmonary embolism; Z86.718 Personal history of other venous thrombosis and embolism; Z79.01 Long term (current) use of anticoagulants; Z79.899 Other long term (current) drug therapy | CPT/HCPCS: 99283 ==

== ENCOUNTER 2023-07-04 07:35 | Emergency (ER) | payer OTHER, MEDICAID ==
[2023-07-04] MEDS ORDERED: Ondansetron PF 4 MG/2 ML Vial ONE (09:19)
[2023-07-04] MEDS ORDERED: fentaNYL 50 mcg/mL 1 mL Vial ONE ×2 (09:19→10:05)
[2023-07-04 09:34] LABS: #Eosinphils 0.2 thou/uL (0.0-0.7); #Monocytes 0.8 thou/uL (0.11-0.59); #Neutrophils 4.1 thou/uL (1.40-6.50); %Basophils 0.6 % (0.0-1.0); %Lymphocytes 21.9 % (21.0-51.0); %Monocytes 11.8 % (0.0-10.0); %Neutrophils 62.4 % (42.0-75.0); Hematocrit 31.6 % (42.0-52.0); Hemoglobin 9.7 g/dL (14.0-18.0); Mean Corpuscular HGB CONC 30.7 g/dL (32.0-36.0); Mean Corpuscular Hemoglobin 23.3 pg (27.0-31.0); Mean Platelet Volume 10.4 fL (7.4-10.4); Platelet Count 247 10x3/uL (130-400); RBC Distribution Width 17.7 % (11.5-14.5); Red Blood Cell (RBC) Count 4.16 mill/uL (4.70-6.10); White Blood Cell (WBC) Count 6.6 10x3/uL (4.8-10.8)
[2023-07-04 09:38] LABS: Bacteria/HPF None Seen HPF (None Seen); Bilirubin Negative (Negative); Blood, Urine 3+ (Negative); CAUTI Indications for Culture Urological Procedure; Glucose, Urine (Dipstick) 30 mg/dL (Negative); Ketone, Urine Negative (Negative); Leukocyte 25 Leu/uL (Negative); Nitrite Negative (Negative); Protein, Urine (Dipstick) 200 mg/dL (Neg-Trace); Squamous Epithelial None Seen HPF (0-3); Urobilinogen Normal mg/dL (Less than 2); pH, Urine 6.5 (5.0-9.0)
[2023-07-04 09:39] LABS: Clarity Bloody (Clear); RBC/HPF Greater than 50 HPF (0-3)
[2023-07-04 09:40] LABS: Urine Culture Reflex Yes Yes
[2023-07-04 09:57] LABS: ALT (SGPT) 33 U/L (8-55); AST (SGOT) 31 U/L (5-34); Albumin 4.1 g/dL (3.5-5.0); Alkaline Phosphatase 133 U/L (40-110); Anion Gap 13 mmol/L (10-20); BUN (Urea Nitrogen) 14 mg/dL (8.9-20.6); Bilirubin, Total 0.2 mg/dL (0.2-1.2); Calc. Creatinine Clearance 0 mL/min (70-130); Calcium 8.9 mg/dL (7.8-10.44); Carbon Dioxide 29 mmol/L (22-29); Chloride 104 mmol/L (98-107); Estimated GFR 99; Globulin 2.7 g/dL (2.4-3.5); Glucose 103 mg/dL (70-105); Lipase 4 U/L (8-78); Potassium 3.9 mmol/L (3.5-5.1); Protein, Total 6.8 g/dL (6.0-8.3); Sodium 142 mmol/L (136-145)
[2023-07-04] MEDS ORDERED: Morphine 2 MG/ML VIAL ONE (11:22)
== END 2023-07-04 11:56 | disposition home or self-care (01) ==
LOC: ERS 07:35
DX: G89.18 Other acute postprocedural pain (principal); R10.9 Unspecified abdominal pain; K59.00 Constipation, unspecified; I10 Essential (primary) hypertension; I48.91 Unspecified atrial fibrillation; Z79.899 Other long term (current) drug therapy; Z86.711 Personal history of pulmonary embolism; Z79.01 Long term (current) use of anticoagulants; Z86.718 Personal history of other venous thrombosis and embolism
CPT/HCPCS: 51702; 74176; 80053; 81001; 83690; 85025; 87086; 96374; 96375; 96376; 99284; J3010; J2272; J2405

== ENCOUNTER 2023-07-05 07:37 | Emergency (ER) | payer OTHER, MEDICAID ==
[2023-07-05 08:33] LABS: Bacteria/HPF None Seen HPF (None Seen); Bilirubin Negative (Negative); Blood, Urine 3+ (Negative); CAUTI Indications for Culture Acute Hematuria; Clarity Bloody (Clear); Glucose, Urine (Dipstick) Normal (Negative); Ketone, Urine Negative (Negative); Leukocyte 75 Leu/uL (Negative); Nitrite Negative (Negative); Protein, Urine (Dipstick) 100 mg/dL (Neg-Trace); RBC/HPF Greater than 50 HPF (0-3); Specific Gravity, Urine 1.013 (1.002-1.036); Squamous Epithelial None Seen HPF (0-3); Urobilinogen Normal mg/dL (Less than 2)
[2023-07-05] MEDS ORDERED: Iopamidol-370 76% 500 ML MDV (1 ML CHARGE) ONE (09:14)
[2023-07-05] MEDS ORDERED: Ondansetron PF 4 MG/2 ML Vial ONE (09:37)
[2023-07-05] MEDS ORDERED: Morphine 4 MG/ML VIAL ONE (09:39)
[2023-07-05 09:40] LABS: #Eosinphils 0.2 thou/uL (0.0-0.7); #Monocytes 0.4 thou/uL (0.11-0.59); #Neutrophils 2.5 thou/uL (1.40-6.50); %Basophils 0.7 % (0.0-1.0); %Eosinophils 3.7 % (0.0-10.0); %Lymphocytes 25.7 % (21.0-51.0); %Monocytes 9.3 % (0.0-10.0); %Neutrophils 60.4 % (42.0-75.0); Hematocrit 33.4 % (42.0-52.0); Hemoglobin 10.2 g/dL (14.0-18.0); Mean Corpuscular HGB CONC 30.5 g/dL (32.0-36.0); Mean Corpuscular Hemoglobin 23.5 pg (27.0-31.0); Mean Platelet Volume 9.7 fL (7.4-10.4); Platelet Count 255 10x3/uL (130-400); RBC Distribution Width 17.6 % (11.5-14.5); Red Blood Cell (RBC) Count 4.34 mill/uL (4.70-6.10); White Blood Cell (WBC) Count 4.1 10x3/uL (4.8-10.8)
[2023-07-05 10:08] LABS: ALT (SGPT) 61 U/L (8-55); AST (SGOT) 64 U/L (5-34); Albumin 4.5 g/dL (3.5-5.0); Alkaline Phosphatase 171 U/L (40-110); Anion Gap 13 mmol/L (10-20); BUN (Urea Nitrogen) 12 mg/dL (8.9-20.6); Bilirubin, Total 0.4 mg/dL (0.2-1.2); CK (CPK) 87 U/L (30-200); Calc. Creatinine Clearance 0 mL/min (70-130); Calcium 9.6 mg/dL (7.8-10.44); Carbon Dioxide 33 mmol/L (22-29); Chloride 101 mmol/L (98-107); Estimated GFR 99; Glucose 101 mg/dL (70-105); Lipase 105 U/L (8-78); Potassium 3.7 mmol/L (3.5-5.1); Protein, Total 7.5 g/dL (6.0-8.3); Sodium 143 mmol/L (136-145)
== END 2023-07-05 11:41 | disposition home or self-care (01) ==
LOC: ERS 07:37
DX: R31.9 Hematuria, unspecified (principal); I48.91 Unspecified atrial fibrillation; I10 Essential (primary) hypertension; Z86.711 Personal history of pulmonary embolism; Z86.718 Personal history of other venous thrombosis and embolism; Z79.899 Other long term (current) drug therapy; Z79.01 Long term (current) use of anticoagulants
CPT/HCPCS: 36415; 74177; 80053; 81001; 82550; 83605; 83690; 85025; 86850; 86900; 86901; 87040; 87086; 96374; 96375; J2270; J2405; Q9967

== ENCOUNTER 2023-07-08 08:23 | Emergency (ER) | payer OTHER, MEDICAID ==
[2023-07-08] MEDS ORDERED: Orphenadrine Citrate 60 MG/2 ML VIAL ONE (09:02)
[2023-07-08] MEDS ORDERED: Morphine 4 MG/ML VIAL ONE ×3 (09:02→14:09)
[2023-07-08 11:03] LABS: #Eosinphils 0.2 thou/uL (0.0-0.7); #Monocytes 0.5 thou/uL (0.11-0.59); #Neutrophils 3.2 thou/uL (1.40-6.50); %Basophils 0.6 % (0.0-1.0); %Eosinophils 3.4 % (0.0-10.0); %Monocytes 10.5 % (0.0-10.0); %Neutrophils 63.1 % (42.0-75.0); Hematocrit 30.3 % (42.0-52.0); Hemoglobin 9.5 g/dL (14.0-18.0); Mean Corpuscular HGB CONC 31.4 g/dL (32.0-36.0); Mean Corpuscular Hemoglobin 23.6 pg (27.0-31.0); Mean Corpuscular Volume 75.4 fl (78.0-98.0); Mean Platelet Volume 10.1 fL (7.4-10.4); Platelet Count 232 10x3/uL (130-400); RBC Distribution Width 17.7 % (11.5-14.5); Red Blood Cell (RBC) Count 4.02 mill/uL (4.70-6.10)
[2023-07-08 11:14] LABS: ALT (SGPT) 59 U/L (8-55); AST (SGOT) 38 U/L (5-34); Alkaline Phosphatase 189 U/L (40-110); Anion Gap 14 mmol/L (10-20); BUN (Urea Nitrogen) 15 mg/dL (8.9-20.6); Bilirubin, Total 0.6 mg/dL (0.2-1.2); Calc. Creatinine Clearance 0 mL/min (70-130); Carbon Dioxide 25 mmol/L (22-29); Chloride 102 mmol/L (98-107); Estimated GFR 105; Globulin 2.7 g/dL (2.4-3.5); Glucose 81 mg/dL (70-105); Potassium 3.7 mmol/L (3.5-5.1); Protein, Total 6.7 g/dL (6.0-8.3); Sodium 137 mmol/L (136-145)
[2023-07-08 12:20] LABS: Bilirubin Negative (Negative); Blood, Urine Large (Negative); Glucose, Urine (Dipstick) Negative (Negative); Ketone, Urine Negative (Negative); Leukocyte Trace (Negative); Nitrite Negative (Negative); Protein, Urine (Dipstick) > or equal to 300 mg/dL (Neg-Trace); Specific Gravity, Urine 1.025 (1.005-1.030); Urobilinogen 0.2 mg/dL (Less than 2); pH, Urine 6.5 (5.0-9.0)
[2023-07-08 12:24] LABS: Clarity Cloudy (Clear)
[2023-07-08 12:27] LABS: Bacteria/HPF None Seen HPF (None Seen); CAUTI Indications for Culture Acute Hematuria; RBC/HPF Greater than 50 HPF (0-3); Squamous Epithelial 0-3 HPF (0-3); WBC/HPF 0-3 HPF (0-3)
[2023-07-08 12:29] LABS: Urine Culture Reflex No No
[2023-07-08] MEDS ORDERED: HYDROcodone/Acetaminophen 10/325 mg Tablet ONE (12:46)
== END 2023-07-08 14:50 | disposition home or self-care (01) ==
LOC: ERS 08:23
DX: M25.511 Pain in right shoulder (principal); M25.551 Pain in right hip; R00.0 Tachycardia, unspecified; I10 Essential (primary) hypertension; Z79.01 Long term (current) use of anticoagulants
CPT/HCPCS: 36415; 72170; 72192; 80053; 81001; 83605; 85025; 93005; 96361; 96372; 96374; J2270; J2360

== ENCOUNTER 2023-07-21 18:26 | Emergency (ER) | payer OTHER, MEDICAID ==
[2023-07-21] MEDS ORDERED: Morphine 4 MG/ML VIAL ONE (19:17)
[2023-07-21] MEDS ORDERED: Ondansetron PF 4 MG/2 ML Vial ONE (19:18)
[2023-07-21 19:19] LABS: #Eosinphils 0.2 thou/uL (0.0-0.7); #Monocytes 0.5 thou/uL (0.11-0.59); #Neutrophils 7.4 thou/uL (1.40-6.50); %Basophils 0.4 % (0.0-1.0); %Eosinophils 1.9 % (0.0-10.0); %Lymphocytes 10.4 % (21.0-51.0); Hematocrit 31.6 % (42.0-52.0); Hemoglobin 9.8 g/dL (14.0-18.0); Mean Corpuscular Hemoglobin 23.3 pg (27.0-31.0); Mean Corpuscular Volume 75.2 fl (78.0-98.0); Mean Platelet Volume 10.9 fL (7.4-10.4); Platelet Count 324 10x3/uL (130-400); RBC Distribution Width 17.1 % (11.5-14.5)
[2023-07-21 19:28] LABS: Bacteria/HPF None Seen HPF (None Seen); Bilirubin Negative (Negative); Blood, Urine 3+ (Negative); CAUTI Indications for Culture Acute Hematuria; Clarity Extra Turbid (Clear); Glucose, Urine (Dipstick) Normal (Negative); Ketone, Urine Negative (Negative); Leukocyte 250 Leu/uL (Negative); Nitrite Negative (Negative); Protein, Urine (Dipstick) 100 mg/dL (Neg-Trace); RBC/HPF Greater than 50 HPF (0-3); Specific Gravity, Urine 1.021 (1.002-1.036); Squamous Epithelial None Seen HPF (0-3); Urobilinogen Normal mg/dL (Less than 2); WBC/HPF Greater than 50 HPF (0-3)
[2023-07-21 19:41] LABS: ALT (SGPT) 11 U/L (8-55); AST (SGOT) 13 U/L (5-34); Albumin 4.2 g/dL (3.5-5.0); Alkaline Phosphatase 161 U/L (40-110); Anion Gap 15 mmol/L (10-20); BUN (Urea Nitrogen) 15 mg/dL (8.9-20.6); Bilirubin, Total 0.3 mg/dL (0.2-1.2); Calc. Creatinine Clearance 0 mL/min (70-130); Calcium 9.3 mg/dL (7.8-10.44); Carbon Dioxide 26 mmol/L (22-29); Chloride 105 mmol/L (98-107); Estimated GFR 103; Globulin 2.9 g/dL (2.4-3.5); Glucose 112 mg/dL (70-105); Lipase 40 U/L (8-78); Potassium 3.9 mmol/L (3.5-5.1); Protein, Total 7.1 g/dL (6.0-8.3); Sodium 142 mmol/L (136-145)
[2023-07-21 19:47] LABS: Urine Culture Reflex Yes Yes
== END 2023-07-21 20:26 | disposition home or self-care (01) ==
LOC: ERS 18:26
DX: K50.10 Crohn's disease of large intestine without complications (principal); I10 Essential (primary) hypertension
CPT/HCPCS: 74176; 80053; 81001; 83690; 85025; 87077; 87086; 87186; 96374; 96375; J2270; J2405

== ENCOUNTER 2023-07-23 03:09 | Emergency (ER) | payer OTHER, MEDICAID ==
[2023-07-23] MEDS ORDERED: Acetaminophen 500 MG TAB ONE (03:36)
[2023-07-23] MEDS ORDERED: Ampicillin 2 GM VIAL ONE (03:55)
[2023-07-23] MEDS ORDERED: Sodium Chloride 0.9% 100 ML ONE (03:57)
[2023-07-23 04:18] LABS: #Basophils 0.1 thou/uL (0.0-0.2); #Eosinphils 0.2 thou/uL (0.0-0.7); #Monocytes 0.3 thou/uL (0.11-0.59); #Neutrophils 2.5 thou/uL (1.40-6.50); %Basophils 1.2 % (0.0-1.0); %Eosinophils 4.9 % (0.0-10.0); %Neutrophils 58.4 % (42.0-75.0); Hematocrit 29.7 % (42.0-52.0); Hemoglobin 9.1 g/dL (14.0-18.0); Mean Corpuscular HGB CONC 30.6 g/dL (32.0-36.0); Mean Corpuscular Hemoglobin 23.5 pg (27.0-31.0); Mean Corpuscular Volume 76.7 fl (78.0-98.0); Mean Platelet Volume 10.9 fL (7.4-10.4); Platelet Count 307 10x3/uL (130-400); RBC Distribution Width 17.2 % (11.5-14.5); Red Blood Cell (RBC) Count 3.87 mill/uL (4.70-6.10); White Blood Cell (WBC) Count 4.3 10x3/uL (4.8-10.8)
[2023-07-23 04:47] LABS: Bilirubin Negative (Negative); Blood, Urine 3+ (Negative); CAUTI Indications for Culture Acute Hematuria; Clarity Turbid (Clear); Glucose, Urine (Dipstick) Normal (Negative); Ketone, Urine Negative (Negative); Leukocyte 250 Leu/uL (Negative); Nitrite Negative (Negative); Protein, Urine (Dipstick) 50 mg/dL (Neg-Trace); RBC/HPF Greater than 50 HPF (0-3); Specific Gravity, Urine 1.002 (1.002-1.036); Squamous Epithelial None Seen HPF (0-3); Urobilinogen Normal mg/dL (Less than 2); WBC/HPF 21-50 HPF (0-3); pH, Urine 5.5 (5.0-9.0)
[2023-07-23 04:49] LABS: Bacteria/HPF Rare-Few HPF (None Seen)
[2023-07-23 04:50] LABS: Chloride 102 mmol/L (98-107); Potassium 3.6 mmol/L (3.5-5.1); Sodium 143 mmol/L (136-145)
[2023-07-23 04:50] LABS: Urine Culture Reflex Yes Yes
[2023-07-23 04:51] LABS: Anion Gap 16 mmol/L (10-20); BUN (Urea Nitrogen) 14 mg/dL (8.9-20.6); Bilirubin, Total 0.2 mg/dL (0.2-1.2); Calc. Creatinine Clearance 0 mL/min (70-130); Calcium 9.5 mg/dL (7.6-10.4); Carbon Dioxide 29 mmol/L (22-29); Estimated GFR 86; Globulin 3.1 g/dL (2.4-3.5); Glucose 93 mg/dL (70-105); Protein, Total 7.1 g/dL (6.0-8.3)
[2023-07-23 04:52] LABS: ALT (SGPT) 10 U/L (8-55); AST (SGOT) 10 U/L (5-34); Alkaline Phosphatase 139 U/L (40-110); CK (CPK) 50 U/L (30-200)
[2023-07-23] MEDS ORDERED: Morphine 4 MG/ML VIAL ONE (04:56)
[2023-07-23] MEDS ORDERED: Ondansetron PF 4 MG/2 ML Vial ONE (04:57)
[2023-07-23] MEDS ORDERED: Morphine 2 MG/ML VIAL ONE (05:03)
[2023-07-23 07:34] LABS: SARS-CoV-2 NAA Rapid Test Not Detected (NotDetected)
== END 2023-07-23 05:58 | disposition home or self-care (01) ==
LOC: ERS 03:09
DX: N39.0 Urinary tract infection, site not specified (principal); M25.50 Pain in unspecified joint; I10 Essential (primary) hypertension; Z86.711 Personal history of pulmonary embolism; Z20.822 Contact with and (suspected) exposure to COVID-19; Z79.899 Other long term (current) drug therapy; Z79.01 Long term (current) use of anticoagulants
CPT/HCPCS: 0240U; 71045; 80053; 81001; 82550; 85025; 87040; 87077; 87086; 87186; 36415; 96365; 96375; J0290; J2270; J2272; J2405; J3490

== ENCOUNTER 2023-07-24 10:18 | Emergency (ER) | payer OTHER, MEDICAID ==
[2023-07-24 11:13] LABS: #Eosinphils 0.2 thou/uL (0.0-0.7); #Monocytes 0.5 thou/uL (0.11-0.59); #Neutrophils 3.9 thou/uL (1.40-6.50); %Basophils 0.5 % (0.0-1.0); %Eosinophils 3.7 % (0.0-10.0); %Monocytes 8.9 % (0.0-10.0); %Neutrophils 68.4 % (42.0-75.0); Hematocrit 26.8 % (42.0-52.0); Hemoglobin 8.1 g/dL (14.0-18.0); Mean Corpuscular HGB CONC 30.2 g/dL (32.0-36.0); Mean Corpuscular Hemoglobin 23.6 pg (27.0-31.0); Mean Corpuscular Volume 78.1 fl (78.0-98.0); Mean Platelet Volume 10.9 fL (7.4-10.4); Platelet Count 245 10x3/uL (130-400); RBC Distribution Width 17.2 % (11.5-14.5); Red Blood Cell (RBC) Count 3.43 mill/uL (4.70-6.10); White Blood Cell (WBC) Count 5.7 10x3/uL (4.8-10.8)
[2023-07-24 11:30] LABS: ALT (SGPT) 8 U/L (8-55); AST (SGOT) 12 U/L (5-34); Albumin 3.8 g/dL (3.5-5.0); Alkaline Phosphatase 117 U/L (40-110); Anion Gap 14 mmol/L (10-20); BUN (Urea Nitrogen) 12 mg/dL (8.9-20.6); Bilirubin, Total 0.2 mg/dL (0.2-1.2); Calc. Creatinine Clearance 0 mL/min (70-130); Calcium 9.2 mg/dL (7.8-10.44); Carbon Dioxide 25 mmol/L (22-29); Chloride 105 mmol/L (98-107); Estimated GFR 88; Globulin 2.3 g/dL (2.4-3.5); Glucose 100 mg/dL (70-105); Potassium 3.8 mmol/L (3.5-5.1); Protein, Total 6.1 g/dL (6.0-8.3); Sodium 140 mmol/L (136-145)
[2023-07-24 11:34] LABS: Troponin I Less than 0.010 ng/mL (< 0.028)
[2023-07-24] MEDS ORDERED: Ondansetron PF 4 MG/2 ML Vial ONE (13:47)
[2023-07-24] MEDS ORDERED: Ondansetron ODT 4 MG TAB ONE (13:52)
== END 2023-07-24 14:20 | disposition home or self-care (01) ==
LOC: ERS 10:18
DX: D64.9 Anemia, unspecified (principal); G89.29 Other chronic pain; R11.0 Nausea; I11.0 Hypertensive heart disease with heart failure; I50.9 Heart failure, unspecified; Z79.899 Other long term (current) drug therapy
CPT/HCPCS: 36415; 71045; 80053; 84484; 85025; 93005; J2405; Q0162

== ENCOUNTER 2023-07-24 21:04 | Emergency (ER) | payer OTHER, MEDICAID ==
[2023-07-24] MEDS ORDERED: Dexamethasone 4 MG TAB ONE (21:38)
== END 2023-07-24 21:47 | disposition home or self-care (01) ==
LOC: ERS 21:04
DX: M25.50 Pain in unspecified joint (principal); I10 Essential (primary) hypertension; Z79.899 Other long term (current) drug therapy
CPT/HCPCS: 99283; J8540

== ENCOUNTER 2023-08-06 00:50 | Inpatient (IN) | payer OTHER, MEDICAID ==
[2023-08-06 01:48] LABS: #Neutrophils 7.4 thou/uL (1.40-6.50); %Basophils 0.4 % (0.0-1.0); %Eosinophils 2.3 % (0.0-10.0); %Lymphocytes 9.6 % (21.0-51.0); %Monocytes 7.8 % (0.0-10.0); %Neutrophils 79.6 % (42.0-75.0); Hemoglobin 8.4 g/dL (14.0-18.0); Mean Corpuscular Hemoglobin 22.8 pg (27.0-31.0); Mean Corpuscular Volume 75.9 fl (78.0-98.0); Mean Platelet Volume 10.6 fL (7.4-10.4); Platelet Count 180 10x3/uL (130-400); RBC Distribution Width 16.7 % (11.5-14.5); Red Blood Cell (RBC) Count 3.69 mill/uL (4.70-6.10); White Blood Cell (WBC) Count 9.3 10x3/uL (4.8-10.8)
[2023-08-06 01:49] LABS: #Eosinphils 0.2 thou/uL (0.0-0.7); #Monocytes 0.7 thou/uL (0.11-0.59)
[2023-08-06] MEDS ORDERED: Acetaminophen 500 MG TAB ONE (02:08)
[2023-08-06] MEDS ORDERED: traMADol HCl 50 MG TAB ONE (02:09)
[2023-08-06 02:18] LABS: ALT (SGPT) 13 U/L (8-55); AST (SGOT) 19 U/L (5-34); Albumin 4.1 g/dL (3.5-5.0); Alkaline Phosphatase 123 U/L (40-110); Anion Gap 13 mmol/L (10-20); BUN (Urea Nitrogen) 15 mg/dL (8.9-20.6); Bilirubin, Total 0.3 mg/dL (0.2-1.2); CK (CPK) 117 U/L (30-200); Calc. Creatinine Clearance 0 mL/min (70-130); Calcium 8.8 mg/dL (7.8-10.44); Carbon Dioxide 26 mmol/L (22-29); Chloride 102 mmol/L (98-107); Estimated GFR 109; Globulin 2.3 g/dL (2.4-3.5); Glucose 101 mg/dL (70-105); Potassium 4.1 mmol/L (3.5-5.1); Protein, Total 6.4 g/dL (6.0-8.3); Sodium 137 mmol/L (136-145)
[2023-08-06] MEDS ORDERED: Ibuprofen 800 MG TAB ONE (02:35)
[2023-08-06 02:56] LABS: Lipase 29 U/L (8-78); Magnesium 1.6 mg/dL (1.6-2.6)
[2023-08-06 02:56] LABS: Acetaminophen Less than 10 mcg/mL (10.0-30.0); Alcohol Less than 10.0 mg/dL (Less than 10); Salicylate Less than 8.0 mg/dL (15.0-30.0)
[2023-08-06 02:59] LABS: Troponin I Less than 0.010 ng/mL (< 0.028)
[2023-08-06 03:08] LABS: PTT 29.3 sec (22.9-36.1); Prothrombin Time 13.7 sec (12.0-14.7)
[2023-08-06] MEDS ORDERED: Morphine 4 MG/ML VIAL ONE (03:32)
[2023-08-06 03:55] LABS: Amphetamine Not Detected (NotDetected); Barbiturates Screen Not Detected (NotDetected); Benzodiazepine Screen Detected (NotDetected); Cocaine Metabolite Screen Not Detected (NotDetected); Methadone Not Detected (NotDetected); Methamphetamine Not Detected (NotDetected); Opiate Screen Not Detected (NotDetected); Oxycodone Screen Not Detected (NotDetected); Phencyclidine (PCP) Not Detected (NotDetected); THC/Cannabinoid Screen Detected (NotDetected); Tricyclic Screen Not Detected (NotDetected)
[2023-08-06 04:08] LABS: Bacteria/HPF None Seen HPF (None Seen); Bilirubin Negative (Negative); Blood, Urine 3+ (Negative); CAUTI Indications for Culture Pelvic or flank pain; Clarity Turbid (Clear); Glucose, Urine (Dipstick) Normal (Negative); Ketone, Urine Negative (Negative); Leukocyte 250 Leu/uL (Negative); Nitrite Negative (Negative); Protein, Urine (Dipstick) 30 mg/dL (Neg-Trace); RBC/HPF Greater than 50 HPF (0-3); Specific Gravity, Urine 1.013 (1.002-1.036); Squamous Epithelial 0-3 HPF (0-3); Urobilinogen Normal mg/dL (Less than 2); WBC/HPF 21-50 HPF (0-3)
[2023-08-06 04:15] LABS: Urine Culture Reflex Yes Yes
[2023-08-06] MEDS ORDERED: cefTRIAXone (ROCEPHIN) 2 GM VIAL ONE (04:44)
[2023-08-06 04:48] LABS: SARS-CoV-2 NAA Rapid Test Not Detected (NotDetected)
[2023-08-06] MEDS ORDERED: Lactated Ringer's 1,000 ML IV SCH (06:15)
[2023-08-06 07:51] VITALS: BMI 27.5
[2023-08-06] MEDS ORDERED: Ondansetron ODT 4 MG TAB PO PRN (08:43)
[2023-08-06] MEDS ORDERED: Ondansetron PF 4 MG/2 ML Vial IVP PRN (08:43)
[2023-08-06] MEDS ORDERED: VANCOMYCIN IVPB PRN (08:47)
[2023-08-06] MEDS ORDERED: Lorazepam 2 MG/ML VIAL IM PRN (08:52)
[2023-08-06] MEDS ORDERED: Magnesium 2 GM/50 ML(in water) 2 GM in Premix 1 BAG IVPB SCH ×2 (09:00→23:00)
[2023-08-06] MEDS ORDERED: Electrolyte Replacement Protocol FS PRN (09:00)
[2023-08-06] MEDS ORDERED: Electrolyte Replacement Protocol 1 EACH FS SCH (09:00)
[2023-08-06] MEDS ORDERED: Vancomycin (BATCH) 2 GM in Premix 1 BAG IVPB SCH (09:15)
[2023-08-06] MEDS ORDERED: HYDROcodone/Acetaminophen 5/325 mg Tablet PO PRN (10:17)
[2023-08-06] MEDS ORDERED: Morphine 4 MG/ML VIAL SLOW IVP PRN (10:18)
[2023-08-06] MEDS: Thiamine HCl 200 MG/2 ML VIAL SLOW IVP SCH (10:25)
[2023-08-06] MEDS: Folic Acid 1 MG TAB PO SCH (10:25)
[2023-08-06] MEDS: Acetaminophen 325 MG TAB PO PRN (10:25)
[2023-08-06] MEDS: Multivit, Therapeutic 1 TAB PO SCH (10:25)
[2023-08-06] MEDS: Sodium Chloride 0.9% 1,000 ML IV SCH ×2 (10:26→20:04)
[2023-08-06] MEDS: Lorazepam 1 MG TAB PO PRN ×3 (11:27→18:03)
[2023-08-06] MEDS ORDERED: Iopamidol-370 76% 500 ML MDV (1 ML CHARGE) ONE (13:55)
[2023-08-06] MEDS ORDERED: Non-Formulary Item 1 EACH (Naloxone Hcl [Narcan] 4 MG Spray) INH PRN (16:33)
[2023-08-06] MEDS ORDERED: Promethazine 25 MG TAB PO PRN (16:33)
[2023-08-06] MEDS ORDERED: hydrOXYzine 25 MG TAB PO PRN (16:54)
[2023-08-06] MEDS ORDERED: Temazepam 15 MG CAP PO PRN (16:56)
[2023-08-06] MEDS ORDERED: Naloxone HCl 0.4 mg/ml Vial IV PRN ×2 (17:43→17:45)
[2023-08-06] MEDS: Vancomycin 1 GM in Premix 1 BAG IVPB SCH (18:03)
[2023-08-06] MEDS: QUEtiapine 200 MG TAB PO SCH (20:03)
[2023-08-06] MEDS: Apixaban 5 MG TAB PO SCH (20:04)
[2023-08-06] MEDS: Pregabalin 50 MG CAP PO SCH (20:04)
[2023-08-06] MEDS ORDERED: cloNIDine 0.2 MG TAB PO SCH (21:00)
[2023-08-06] MEDS ORDERED: ALPRAZolam 1 MG TAB PO SCH (21:00)
[2023-08-06] MEDS ORDERED: ALPRAZolam 1 MG TAB PO PRN (21:54)
[2023-08-06] MEDS ORDERED: Cefepime 1 GM in Sodium Chloride 0.9% 100 ML IVPB SCH (22:00)
[2023-08-06 22:09] LABS: #Monocytes 0.9 thou/uL (0.11-0.59); #Neutrophils 7.1 thou/uL (1.40-6.50); %Basophils 0.2 % (0.0-1.0); %Eosinophils 0.3 % (0.0-10.0); %Lymphocytes 8.2 % (21.0-51.0); %Monocytes 9.8 % (0.0-10.0); Hematocrit 23.7 % (42.0-52.0); Hemoglobin 7.3 g/dL (14.0-18.0); Mean Corpuscular HGB CONC 30.8 g/dL (32.0-36.0); Mean Corpuscular Volume 74.5 fl (78.0-98.0); Platelet Count 141 10x3/uL (130-400); RBC Distribution Width 17.2 % (11.5-14.5); Red Blood Cell (RBC) Count 3.18 mill/uL (4.70-6.10); White Blood Cell (WBC) Count 8.8 10x3/uL (4.8-10.8)
[2023-08-06 22:24] LABS: ALT (SGPT) 15 U/L (8-55); AST (SGOT) 16 U/L (5-34); Albumin 3.5 g/dL (3.5-5.0); Alkaline Phosphatase 110 U/L (40-110); Anion Gap 12 mmol/L (10-20); BUN (Urea Nitrogen) 9 mg/dL (8.9-20.6); Bilirubin, Total 0.3 mg/dL (0.2-1.2); Calc. Creatinine Clearance 131 mL/min (70-130); Calcium 7.9 mg/dL (7.8-10.44); Carbon Dioxide 23 mmol/L (22-29); Chloride 101 mmol/L (98-107); Estimated GFR 103; Globulin 2.1 g/dL (2.4-3.5); Glucose 157 mg/dL (70-105); Magnesium 1.8 mg/dL (1.6-2.6); Potassium 3.4 mmol/L (3.5-5.1); Protein, Total 5.6 g/dL (6.0-8.3); Sodium 133 mmol/L (136-145)
[2023-08-06 22:28] LABS: Troponin I Less than 0.010 ng/mL (< 0.028)
[2023-08-06 22:51] LABS: Anisocytosis SLIGHT = 6-15 cells HPF (0-5); CellaVision Operator ID lab.sh2; Hypochromia MODERATE=16-30 cells HPF (0-5); Microcytosis SLIGHT = 6-15 cells HPF (0-5); Ovalocytes MODERATE= 6-15 cells HPF (0-1); Platelet Adequacy Comment Platelets Normal; Polychromasia MODERATE = 3-4 cells HPF (0-2); Stomatocytes SLIGHT = 2-5 cells HPF (0-1); Tear Drops SLIGHT = 2-5 cells HPF (0-1)
[2023-08-06] MEDS ORDERED: Potassium Chloride 20 MEQ TAB PO SCH (23:00)
[2023-08-07] MEDS ORDERED: Acetaminophen 500 MG TAB PO SCH (00:15)
[2023-08-07 01:56] LABS: Lactic Acid 0.7 mmol/L (0.5-2.2)
[2023-08-07] MEDS: Vancomycin 1 GM in Premix 1 BAG IVPB SCH ×2 (02:03→08:22)
[2023-08-07 04:47] LABS: #Monocytes 0.8 thou/uL (0.11-0.59); #Neutrophils 6.4 thou/uL (1.40-6.50); %Basophils 0.2 % (0.0-1.0); %Eosinophils 0.5 % (0.0-10.0); %Lymphocytes 11.6 % (21.0-51.0); %Monocytes 9.2 % (0.0-10.0); %Neutrophils 78.1 % (42.0-75.0); Hematocrit 24.1 % (42.0-52.0); Hemoglobin 7.2 g/dL (14.0-18.0); Mean Corpuscular HGB CONC 29.9 g/dL (32.0-36.0); Mean Corpuscular Hemoglobin 22.7 pg (27.0-31.0); Mean Platelet Volume 10.5 fL (7.4-10.4); Platelet Count 135 10x3/uL (130-400); RBC Distribution Width 17.3 % (11.5-14.5); Red Blood Cell (RBC) Count 3.17 mill/uL (4.70-6.10); White Blood Cell (WBC) Count 8.2 10x3/uL (4.8-10.8)
[2023-08-07] MEDS ORDERED: cefTRIAXone\\ROCEPHIN 1 GM in Sodium Chloride 0.9% 100 ML IVPB SCH (05:00)
[2023-08-07 05:19] LABS: Anion Gap 10 mmol/L (10-20); BUN (Urea Nitrogen) 8 mg/dL (8.9-20.6); Calc. Creatinine Clearance 148 mL/min (70-130); Calcium 7.6 mg/dL (7.8-10.44); Carbon Dioxide 23 mmol/L (22-29); Chloride 106 mmol/L (98-107); Estimated GFR 110; Glucose 121 mg/dL (70-105); Magnesium 2.6 mg/dL (1.6-2.6); Potassium 3.5 mmol/L (3.5-5.1); Sodium 135 mmol/L (136-145)
[2023-08-07 05:24] LABS: Phosphorus 3.1 mg/dL (2.3-4.7)
[2023-08-07] MEDS: Levothyroxine 150 MCG TAB PO SCH (06:16)
[2023-08-07] MEDS ORDERED: Potassium Chloride 20 MEQ TAB PO SCH (08:00)
[2023-08-07] MEDS: Ipratropium/Albuterol 3 ML NEB NEB SCH ×3 (08:04→19:43)
[2023-08-07] MEDS: Mometasone 100 MCG HFA INHALER (RT USE) INH SCH ×2 (08:07→19:44)
[2023-08-07] MEDS: DULoxetine 60 MG CAP PO SCH (08:20)
[2023-08-07] MEDS: Thiamine HCl 200 MG/2 ML VIAL SLOW IVP SCH (08:21)
[2023-08-07] MEDS: Multivit, Therapeutic 1 TAB PO SCH (08:21)
[2023-08-07] MEDS: Folic Acid 1 MG TAB PO SCH (08:21)
[2023-08-07] MEDS: Apixaban 5 MG TAB PO SCH ×2 (08:21→21:46)
[2023-08-07] MEDS: Cholecalciferol 1,000 UNITS (25 MCG) TAB PO SCH (08:21)
[2023-08-07] MEDS ORDERED: Lorazepam 1 MG TAB PO PRN (08:53)
[2023-08-07] MEDS ORDERED: Amlodipine 10 MG TAB PO SCH (09:00)
[2023-08-07] MEDS ORDERED: Lidocaine 4% Patch TD SCH ×2 (09:00)
[2023-08-07] MEDS ORDERED: Cefepime 1 GM in Sodium Chloride 0.9% 100 ML IVPB SCH (09:00)
[2023-08-07] MEDS: Sodium Chloride 0.9% 1,000 ML IV SCH ×2 (09:16→14:59)
[2023-08-07] MEDS: Pregabalin 50 MG CAP PO SCH ×3 (09:17→21:46)
[2023-08-07] MEDS: Lidocaine 4% Patch TD SCH (09:18)
[2023-08-07 09:22] LABS: Vancomycin, Trough 15.2 ug/mL
[2023-08-07] MEDS: Morphine 2 MG/ML VIAL SLOW IVP PRN ×3 (11:36→21:48)
[2023-08-07] MEDS: Acetaminophen 325 MG TAB PO PRN (12:31)
[2023-08-07] MEDS ORDERED: Vancomycin 1 GM in Premix 1 BAG IVPB SCH (18:00)
[2023-08-07 18:56] LABS: Vancomycin, Trough 10.9 ug/mL
[2023-08-07] MEDS ORDERED: Transdermal Patch Removal TOP SCH (21:00)
[2023-08-07] MEDS ORDERED: Atorvastatin Calcium 20 MG TAB PO SCH (21:00)
[2023-08-07] MEDS: QUEtiapine 200 MG TAB PO SCH (21:46)
[2023-08-07] MEDS: Vancomycin (BATCH) 1.25 GM in Premix 1 BAG IVPB SCH (21:48)
[2023-08-08] MEDS: Morphine 2 MG/ML VIAL SLOW IVP PRN ×3 (00:50→10:13)
[2023-08-08] MEDS: Ipratropium/Albuterol 3 ML NEB NEB SCH ×2 (00:58→09:43)
[2023-08-08] MEDS: HYDROcodone/Acetaminophen 10/325 mg Tablet PO PRN ×2 (02:22→08:57)
[2023-08-08] MEDS: Sodium Chloride 0.9% 1,000 ML IV SCH (02:25)
[2023-08-08] MEDS ORDERED: Morphine 2 MG/ML VIAL SLOW IVP SCH (03:00)
[2023-08-08] MEDS: Levothyroxine 150 MCG TAB PO SCH (06:23)
[2023-08-08] MEDS: Vancomycin (BATCH) 1.25 GM in Premix 1 BAG IVPB SCH (06:33)
[2023-08-08 07:01] LABS: Anion Gap 13 mmol/L (10-20); BUN (Urea Nitrogen) 7 mg/dL (8.9-20.6); Calc. Creatinine Clearance 117 mL/min (70-130); Calcium 8.4 mg/dL (7.8-10.44); Carbon Dioxide 22 mmol/L (22-29); Chloride 107 mmol/L (98-107); Estimated GFR 90; Glucose 105 mg/dL (70-105); Iron 13 ug/dL (65-175); Iron Binding Capacity, Total 405 mcg/dL (261-462); Potassium 3.4 mmol/L (3.5-5.1); Sodium 139 mmol/L (136-145)
[2023-08-08 07:26] LABS: Ferritin 73.14 ng/mL (22-322)
[2023-08-08] MEDS ORDERED: Potassium Chloride 20 MEQ TAB PO SCH (08:00)
[2023-08-08 08:31] VITALS: BP 138/86; TEMP 98.8
[2023-08-08] MEDS ORDERED: Lorazepam 1 MG TAB PO PRN (08:53)
[2023-08-08] MEDS: Cholecalciferol 1,000 UNITS (25 MCG) TAB PO SCH (08:55)
[2023-08-08] MEDS: Apixaban 5 MG TAB PO SCH (08:56)
[2023-08-08] MEDS: Folic Acid 1 MG TAB PO SCH (08:56)
[2023-08-08] MEDS: Pregabalin 50 MG CAP PO SCH (08:56)
[2023-08-08] MEDS: Multivit, Therapeutic 1 TAB PO SCH (08:56)
[2023-08-08] MEDS: DULoxetine 60 MG CAP PO SCH (08:56)
[2023-08-08] MEDS: Thiamine HCl 200 MG/2 ML VIAL SLOW IVP SCH (08:58)
[2023-08-08] MEDS: Lidocaine 4% Patch TD SCH (08:58)
[2023-08-08] MEDS: Mometasone 100 MCG HFA INHALER (RT USE) INH SCH (09:44)
[2023-08-09] MEDS ORDERED: Lorazepam 0.5 MG TAB PO PRN (08:53)
[2023-08-09] MEDS ORDERED: Thiamine 100 MG TAB PO SCH (09:00)
== END 2023-08-08 10:53 | disposition left against medical advice (07) | DRG 871 ==
LOC: ERS 00:50 → 2SE 06:00
PROVIDERS: ADMIT Internal Medicine; ATTEND Internal Medicine
DX: A41.81 Sepsis due to Enterococcus (principal); J18.9 Pneumonia, unspecified organism; J93.9 Pneumothorax, unspecified; N39.0 Urinary tract infection, site not specified; R10.9 Unspecified abdominal pain; E78.5 Hyperlipidemia, unspecified; D64.9 Anemia, unspecified; I48.0 Paroxysmal atrial fibrillation; E03.9 Hypothyroidism, unspecified; Z88.0 Allergy status to penicillin; Z88.8 Allergy status to other drugs, medicaments and biological substances; Z79.899 Other long term (current) drug therapy; Z79.890 Hormone replacement therapy; Z79.2 Long term (current) use of antibiotics; Z98.890 Other specified postprocedural states; Z11.52 Encounter for screening for COVID-19; K59.00 Constipation, unspecified; R51.9 Headache, unspecified; I10 Essential (primary) hypertension; W19.XXXA Unspecified fall, initial encounter
CPT/HCPCS: 36415; 36416; 70450; 71045; 71260; 74177; 80048; 80053; 80202; 80306; 80307; 81001; 82550; 82607; 82728; 83540; 83550; 83605; 83690; 83735; 84100; 84484; 85025; 85046; 85610; 85730; 87040; 87077; 87086; 87149; 87186; 93005; 93010; 94640; 96361; 96365; 96374; 96375; J0692; J0696; J1630; J2270; J2272; J2405; J3370; J3370-JW; J3411; J3475; J3490; J7050; J7620; Q9967

== ENCOUNTER 2023-10-13 12:23 | Emergency (ER) | payer OTHER, MEDICAID ==
[2023-10-13 13:02] LABS: #Eosinphils 0.1 thou/uL (0.0-0.7); #Monocytes 0.5 thou/uL (0.11-0.59); #Neutrophils 4.3 thou/uL (1.40-6.50); %Basophils 0.5 % (0.0-1.0); %Eosinophils 1.7 % (0.0-10.0); %Lymphocytes 24.7 % (21.0-51.0); %Monocytes 7.2 % (0.0-10.0); %Neutrophils 65.7 % (42.0-75.0); Hematocrit 32.7 % (42.0-52.0); Hemoglobin 10.1 g/dL (14.0-18.0); Mean Corpuscular HGB CONC 30.9 g/dL (32.0-36.0); Mean Corpuscular Hemoglobin 21.5 pg (27.0-31.0); Mean Corpuscular Volume 69.7 fl (78.0-98.0); Mean Platelet Volume 10.3 fL (7.4-10.4); Platelet Count 279 10x3/uL (130-400); RBC Distribution Width 18.5 % (11.5-14.5); Red Blood Cell (RBC) Count 4.69 mill/uL (4.70-6.10); White Blood Cell (WBC) Count 6.5 10x3/uL (4.8-10.8)
[2023-10-13 13:20] LABS: ALT (SGPT) 9 U/L (8-55); AST (SGOT) 10 U/L (5-34); Albumin 4.5 g/dL (3.5-5.0); Alkaline Phosphatase 125 U/L (40-110); Anion Gap 18 mmol/L (10-20); BUN (Urea Nitrogen) 16 mg/dL (8.9-20.6); Bilirubin, Total 0.3 mg/dL (0.2-1.2); Calc. Creatinine Clearance 0 mL/min (70-130); Calcium 9.3 mg/dL (7.8-10.44); Carbon Dioxide 21 mmol/L (22-29); Chloride 108 mmol/L (98-107); Estimated GFR 66; Globulin 2.9 g/dL (2.4-3.5); Glucose 132 mg/dL (70-105); Potassium 3.9 mmol/L (3.5-5.1); Protein, Total 7.4 g/dL (6.0-8.3); Sodium 143 mmol/L (136-145)
[2023-10-13 13:24] LABS: Troponin I Less than 0.010 ng/mL (< 0.028)
[2023-10-13] MEDS ORDERED: Nitroglycerin 0.4 MG TAB (25 Tab Bottle) ONE (14:16)
[2023-10-13 14:26] LABS: Anisocytosis SLIGHT = 6-15 cells HPF (0-5); CellaVision Operator ID LAB.KB; Elliptocytes SLIGHT = 2-5 cells HPF (0-1); Hypochromia SLIGHT = 6-15 cells HPF (0-5); Microcytosis SLIGHT = 6-15 cells HPF (0-5); Platelet Adequacy Comment Platelets Normal; Polychromasia SLIGHT = 2-3 cells HPF (0-2)
[2023-10-13 14:40] LABS: Acetaminophen Less than 10 mcg/mL (10.0-30.0); Alcohol Less than 10.0 mg/dL (Less than 10); Salicylate Less than 8.0 mg/dL (15.0-30.0)
[2023-10-13] MEDS ORDERED: Morphine 4 MG/ML VIAL ONE (14:43)
[2023-10-13 14:59] LABS: Bilirubin Negative (Negative); Blood, Urine Negative (Negative); Glucose, Urine (Dipstick) Negative (Negative); Ketone, Urine Trace mg/dL (Negative); Leukocyte Negative (Negative); Nitrite Negative (Negative); Protein, Urine (Dipstick) 30 mg/dL (Neg-Trace); Urobilinogen 0.2 mg/dL (Less than 2)
[2023-10-13 15:12] LABS: Amphetamine Not Detected (NotDetected); Barbiturates Screen Not Detected (NotDetected); Benzodiazepine Screen Detected (NotDetected); Cocaine Metabolite Screen Not Detected (NotDetected); Methadone Not Detected (NotDetected); Methamphetamine Not Detected (NotDetected); Opiate Screen Not Detected (NotDetected); Oxycodone Screen Not Detected (NotDetected); Phencyclidine (PCP) Not Detected (NotDetected); THC/Cannabinoid Screen Detected (NotDetected); Tricyclic Screen Detected (NotDetected)
[2023-10-13 15:19] LABS: Clarity Turbid (Clear); Specific Gravity, Urine 1.019 (1.005-1.030)
[2023-10-13 15:22] LABS: CAUTI Indications for Culture Dysuria,urgency,freq; RBC/HPF None Seen HPF (0-3); WBC/HPF 0-3 HPF (0-3)
[2023-10-13 15:23] LABS: Bacteria/HPF None Seen HPF (None Seen); Calcium Oxalate Crystals 4+ HPF (None Seen); Squamous Epithelial 0-3 HPF (0-3)
[2023-10-13 15:25] LABS: Urine Culture Reflex No No
[2023-10-13 17:31] LABS: Troponin I Less than 0.010 ng/mL (< 0.028)
== END 2023-10-13 17:41 | disposition home or self-care (01) ==
LOC: ERS 12:23
DX: R07.9 Chest pain, unspecified (principal); I10 Essential (primary) hypertension; I48.91 Unspecified atrial fibrillation; E06.3 Autoimmune thyroiditis; Z79.899 Other long term (current) drug therapy
CPT/HCPCS: 71045; 80053; 80306; 80307; 81001; 83605; 83735; 84484; 85025; 85379; 93005; 96361; 96374; J2270

== ENCOUNTER 2023-10-19 14:18 | Observation (INO) | payer OTHER, MEDICAID ==
[2023-10-19 15:18] LABS: #Eosinphils 0.2 thou/uL (0.0-0.7); #Monocytes 0.5 thou/uL (0.11-0.59); #Neutrophils 3.5 thou/uL (1.40-6.50); %Basophils 0.5 % (0.0-1.0); %Lymphocytes 24.1 % (21.0-51.0); %Monocytes 9.6 % (0.0-10.0); %Neutrophils 62.4 % (42.0-75.0); Hematocrit 23.3 % (42.0-52.0); Hemoglobin 6.9 g/dL (14.0-18.0); Mean Corpuscular HGB CONC 29.6 g/dL (32.0-36.0); Mean Corpuscular Hemoglobin 21.8 pg (27.0-31.0); Mean Corpuscular Volume 73.5 fl (78.0-98.0); Platelet Count 180 10x3/uL (130-400); RBC Distribution Width 19.4 % (11.5-14.5); Red Blood Cell (RBC) Count 3.17 mill/uL (4.70-6.10); White Blood Cell (WBC) Count 5.6 10x3/uL (4.8-10.8)
[2023-10-19 15:39] LABS: Acetaminophen Less than 10 mcg/mL (10.0-30.0); Alcohol Less than 10.0 mg/dL (Less than 10); Lipase 19 U/L (8-78); Magnesium 1.9 mg/dL (1.6-2.6); Salicylate Less than 8.0 mg/dL (15.0-30.0); Troponin I Less than 0.010 ng/mL (< 0.028)
[2023-10-19 15:40] LABS: ALT (SGPT) 25 U/L (8-55); AST (SGOT) 21 U/L (5-34); Albumin 3.9 g/dL (3.5-5.0); Alkaline Phosphatase 148 U/L (40-110); Anion Gap 13 mmol/L (10-20); BUN (Urea Nitrogen) 20 mg/dL (8.9-20.6); Bilirubin, Total 0.2 mg/dL (0.2-1.2); Calc. Creatinine Clearance 0 mL/min (70-130); Calcium 9.3 mg/dL (7.8-10.44); Carbon Dioxide 24 mmol/L (22-29); Chloride 107 mmol/L (98-107); Estimated GFR 60; Globulin 2.5 g/dL (2.4-3.5); Glucose 109 mg/dL (70-105); Potassium 3.9 mmol/L (3.5-5.1); Protein, Total 6.4 g/dL (6.0-8.3); Sodium 140 mmol/L (136-145)
[2023-10-19 15:43] LABS: Anisocytosis SLIGHT = 6-15 cells HPF (0-5); CellaVision Operator ID LAB.MJL; Elliptocytes SLIGHT = 2-5 cells HPF (0-1); Hypochromia SLIGHT = 6-15 cells HPF (0-5); Microcytosis SLIGHT = 6-15 cells HPF (0-5); Ovalocytes SLIGHT = 2-5 cells HPF (0-1); Platelet Adequacy Comment Platelets Normal; Poikilocytosis SLIGHT = 6-15 cells HPF (0-5); Polychromasia SLIGHT = 2-3 cells HPF (0-2)
[2023-10-19 15:43] LABS: Influenza A by NAA Not Detected (NotDetected); Influenza B by NAA Not Detected (NotDetected); SARS-CoV-2 NAA Rapid Test Not Detected (NotDetected)
[2023-10-19 15:56] LABS: Amphetamine Not Detected (NotDetected); Barbiturates Screen Not Detected (NotDetected); Benzodiazepine Screen Detected (NotDetected); Cocaine Metabolite Screen Not Detected (NotDetected); Methadone Not Detected (NotDetected); Methamphetamine Not Detected (NotDetected); Opiate Screen Detected (NotDetected); Oxycodone Screen Detected (NotDetected); Phencyclidine (PCP) Not Detected (NotDetected); THC/Cannabinoid Screen Detected (NotDetected); Tricyclic Screen Detected (NotDetected)
[2023-10-19 16:10] LABS: Bacteria/HPF None Seen HPF (None Seen); Bilirubin Negative (Negative); Blood, Urine Negative (Negative); CAUTI Indications for Culture Dysuria,urgency,freq; Clarity Clear (Clear); Glucose, Urine (Dipstick) Normal (Negative); Ketone, Urine Negative (Negative); Leukocyte Negative Leu/uL (Negative); Nitrite Negative (Negative); Protein, Urine (Dipstick) 50 mg/dL (Neg-Trace); RBC/HPF 0-3 HPF (0-3); Specific Gravity, Urine 1.033 (1.002-1.036); Squamous Epithelial None Seen HPF (0-3); Urobilinogen Normal mg/dL (Less than 2); WBC/HPF 0-3 HPF (0-3); pH, Urine 5.5 (5.0-9.0)
[2023-10-19 16:12] LABS: Urine Culture Reflex No No
[2023-10-19] MEDS ORDERED: Pantoprazole 40 MG VIAL ONE (16:29)
[2023-10-19] MEDS ORDERED: Pantoprazole 80 MG, Admixture Fee 1 EACH in Sodium Chloride 0.9% 100 ML IVPB SCH (16:30)
[2023-10-19] MEDS ORDERED: Acetaminophen 650 MG Suppository PR PRN (21:04)
[2023-10-19] MEDS ORDERED: Acetaminophen 325 MG TAB PO PRN (21:04)
[2023-10-19] MEDS ORDERED: Ondansetron ODT 4 MG TAB PO PRN (21:04)
[2023-10-19] MEDS ORDERED: Ondansetron PF 4 MG/2 ML Vial IVP PRN (21:04)
[2023-10-19] MEDS ORDERED: NALOXONE HCL 4 MG L NARE PRN (21:33)
[2023-10-19 22:04] VITALS: BMI 28.3
[2023-10-19] MEDS: Lactated Ringer's 1,000 ML IV SCH (22:29)
[2023-10-19 23:38] VITALS: BP 127/77; TEMP 97.5
== END 2023-10-20 00:45 | disposition left against medical advice (07) ==
LOC: ERS 14:18 → 2SW 19:15
PROVIDERS: ADMIT Family Medicine; ATTEND Family Medicine
DX: R53.1 Weakness (principal); D64.9 Anemia, unspecified; K92.1 Melena; I95.9 Hypotension, unspecified; I48.91 Unspecified atrial fibrillation; Z79.899 Other long term (current) drug therapy; K50.90 Crohn's disease, unspecified, without complications; Z90.49 Acquired absence of other specified parts of digestive tract; Z90.89 Acquired absence of other organs; Z98.890 Other specified postprocedural states; Z88.8 Allergy status to other drugs, medicaments and biological substances; Z88.5 Allergy status to narcotic agent; Z88.0 Allergy status to penicillin
CPT/HCPCS: 0240U; 36430; 51701; 71045; 74177; 80306; 80307; 81001; 83605; 83690; 83735; 83880; 84484; 86850; 86900; 86901; 86920; 93005; 96361; 96365; 96366; 96376; 99285; P9016; 36416; 80053; 84443; 85025; C9113; G0378; J3490; J7120

== ENCOUNTER 2024-01-22 15:30 | Observation (INO) | payer OTHER ==
[2024-01-22 17:37] LABS: #Basophils 0.04 10x3/uL (0.0-0.2); %Basophils 0.6 % (0.0-1.0); %Eosinophils 0.8 % (0.0-10.0); %Lymphocytes 22.8 % (21.0-51.0); %Monocytes 7.7 % (0.0-10.0); %Neutrophils 67.8 % (42.0-75.0); Hematocrit 35.1 % (42.0-52.0); Mean Corpuscular HGB CONC 31.3 g/dL (32.0-36.0); Mean Corpuscular Hemoglobin 23.2 pg (27.0-31.0); Mean Corpuscular Volume 74.1 fL (78.0-98.0); Mean Platelet Volume 10.6 fL (7.4-10.4); Platelet Count 208 10x3/uL (130-400); RBC Distribution Width 16.7 % (11.5-14.5); Red Blood Cell (RBC) Count 4.74 mill/uL (4.70-6.10)
[2024-01-22] MEDS ORDERED: Aspirin Chewable 81 MG TAB ONE (17:43)
[2024-01-22] MEDS ORDERED: Metoprolol Tartrate 5 MG (5 mL) VIAL ONE (17:44)
[2024-01-22 17:47] LABS: ALT (SGPT) 13 U/L (8-55); AST (SGOT) 14 U/L (5-34); Alkaline Phosphatase 130 U/L (40-110); Anion Gap 15 mmol/L (10-20); BUN (Urea Nitrogen) 17 mg/dL (8.9-20.6); Bilirubin, Total 0.3 mg/dL (0.2-1.2); Calc. Creatinine Clearance 0 mL/min (70-130); Calcium 9.6 mg/dL (7.8-10.44); Carbon Dioxide 21 mmol/L (22-29); Chloride 110 mmol/L (98-107); Estimated GFR 94; Globulin 2.9 g/dL (2.4-3.5); Glucose 100 mg/dL (70-105); Potassium 3.7 mmol/L (3.5-5.1); Protein, Total 6.9 g/dL (6.0-8.3); Sodium 142 mmol/L (136-145)
[2024-01-22 17:52] LABS: Troponin I Less than 0.010 ng/mL (< 0.028)
[2024-01-22 18:05] LABS: Anisocytosis SLIGHT = 6-15 cells HPF (0-5); Microcytosis SLIGHT = 6-15 cells HPF (0-5); Ovalocytes SLIGHT = 2-5 cells HPF (0-1); Platelet Adequacy Comment Platelets Normal; Poikilocytosis SLIGHT = 6-15 cells HPF (0-5)
[2024-01-22] MEDS ORDERED: Labetalol HCl 100 MG/20 ML VIAL ONE (18:19)
[2024-01-22] MEDS ORDERED: Ondansetron PF 4 MG/2 ML Vial ONE (19:11)
[2024-01-22] MEDS ORDERED: Morphine 4 MG/ML VIAL ONE (19:11)
[2024-01-22 20:08] LABS: Troponin I Less than 0.010 ng/mL (< 0.028)
[2024-01-22] MEDS ORDERED: Acetaminophen 325 MG TAB PO PRN ×2 (21:15→23:22)
[2024-01-22] MEDS ORDERED: Ondansetron ODT 4 MG TAB SL PRN (21:15)
[2024-01-22] MEDS ORDERED: Ondansetron PF 4 MG/2 ML Vial IVP PRN ×2 (21:15→23:22)
[2024-01-22 23:03] VITALS: BMI 28.0
[2024-01-22] MEDS ORDERED: hydrALAZINE 20 MG/ML VIAL SLOW IVP PRN (23:26)
[2024-01-23] MEDS ORDERED: cloNIDine 0.2 MG TAB PO PRN (00:29)
[2024-01-23] MEDS ORDERED: hydrOXYzine 25 MG TAB PO PRN (00:29)
[2024-01-23] MEDS ORDERED: Promethazine 25 MG TAB PO PRN (00:29)
[2024-01-23] MEDS ORDERED: Zolpidem Tartrate 5 MG TAB PO PRN (00:55)
[2024-01-23] MEDS ORDERED: SUMAtriptan Succinate 50 MG TAB PO PRN (01:00)
[2024-01-23] MEDS: Morphine 4 MG/ML VIAL SLOW IVP SCH (01:02)
[2024-01-23] MEDS: Temazepam 15 MG CAP PO PRN (01:02)
[2024-01-23] MEDS: Enoxaparin 40 MG (0.4 mL) SYRINGE SC SCH ×2 (01:03→08:22)
[2024-01-23 05:32] LABS: #Basophils 0.04 10x3/uL (0.0-0.2); %Basophils 0.8 % (0.0-1.0); %Eosinophils 1.5 % (0.0-10.0); %Lymphocytes 31.4 % (21.0-51.0); %Monocytes 10.3 % (0.0-10.0); %Neutrophils 55.6 % (42.0-75.0); Hematocrit 33.6 % (42.0-52.0); Hemoglobin 10.5 g/dL (14.0-18.0); Mean Corpuscular HGB CONC 31.3 g/dL (32.0-36.0); Mean Corpuscular Hemoglobin 22.6 pg (27.0-31.0); Mean Corpuscular Volume 72.3 fL (78.0-98.0); Mean Platelet Volume 11.1 fL (7.4-10.4); Platelet Count 188 10x3/uL (130-400); RBC Distribution Width 16.8 % (11.5-14.5); Red Blood Cell (RBC) Count 4.65 mill/uL (4.70-6.10)
[2024-01-23 05:46] LABS: Anion Gap 12 mmol/L (10-20); BUN (Urea Nitrogen) 19 mg/dL (8.9-20.6); Calc. Creatinine Clearance 121 mL/min (70-130); Carbon Dioxide 26 mmol/L (22-29); Chloride 108 mmol/L (98-107); Estimated GFR 93; Glucose 84 mg/dL (70-105); Potassium 3.4 mmol/L (3.5-5.1); Sodium 143 mmol/L (136-145)
[2024-01-23] MEDS: HYDROcodone/Acetaminophen 10/325 mg Tablet PO PRN (05:50)
[2024-01-23 05:55] LABS: Troponin I Less than 0.010 ng/mL (< 0.028)
[2024-01-23] MEDS: Levothyroxine 150 MCG TAB PO SCH (06:25)
[2024-01-23] MEDS ORDERED: Nitroglycerin 0.4 MG TAB (25 Tab Bottle) SL PRN (07:47)
[2024-01-23] MEDS: Pregabalin 75 MG CAP PO SCH (08:20)
[2024-01-23] MEDS: DULoxetine 30 MG CAP PO SCH (08:20)
[2024-01-23] MEDS: Aspirin 81 mg Enteric Coated Tablet PO SCH (08:20)
[2024-01-23] MEDS: Pantoprazole DR 40 MG TAB PO SCH (08:20)
[2024-01-23] MEDS: ALPRAZolam 1 MG TAB PO PRN (08:21)
[2024-01-23] MEDS: Hydrochlorothiazide 25 MG TAB PO SCH (08:22)
[2024-01-23] MEDS: Losartan 25 MG TAB PO SCH (08:22)
[2024-01-23] MEDS: cloNIDine 0.2 MG TAB PO SCH (08:26)
[2024-01-23 08:35] LABS: Troponin I Less than 0.010 ng/mL (< 0.028)
[2024-01-23 08:59] LABS: Free T4 (Free Thyroxine) 0.86 ng/dL (0.70-1.48)
[2024-01-23] MEDS ORDERED: Amlodipine 10 MG TAB PO SCH (09:00)
[2024-01-23] MEDS ORDERED: Regadenoson 0.4 MG/5 ML SYRINGE ONE (10:13)
[2024-01-23] MEDS: HYDROcodone/Acetaminophen 5/325 mg Tablet PO PRN (13:47)
[2024-01-23 15:49] LABS: Amphetamine Not Detected (NotDetected); Barbiturates Screen Not Detected (NotDetected); Benzodiazepine Screen Detected (NotDetected); Cocaine Metabolite Screen Not Detected (NotDetected); Methadone Not Detected (NotDetected); Methamphetamine Not Detected (NotDetected); Opiate Screen Detected (NotDetected); Oxycodone Screen Not Detected (NotDetected); Phencyclidine (PCP) Not Detected (NotDetected); THC/Cannabinoid Screen Detected (NotDetected); Tricyclic Screen Detected (NotDetected)
[2024-01-23 16:54] VITALS: BP 131/89; TEMP 97.5
[2024-01-23] MEDS ORDERED: QUEtiapine 200 MG TAB PO SCH (21:00)
== END 2024-01-23 18:07 | disposition home or self-care (01) ==
LOC: ERS 15:30 → 2SW 21:02
PROVIDERS: ADMIT Internal Medicine; ATTEND Family Medicine
DX: R07.2 Precordial pain (principal); J43.9 Emphysema, unspecified; K21.9 Gastro-esophageal reflux disease without esophagitis; I16.0 Hypertensive urgency; I48.91 Unspecified atrial fibrillation; J93.83 Other pneumothorax; E03.9 Hypothyroidism, unspecified; Z88.0 Allergy status to penicillin; Z88.8 Allergy status to other drugs, medicaments and biological substances; Z88.5 Allergy status to narcotic agent; Z79.890 Hormone replacement therapy; Z79.899 Other long term (current) drug therapy; Z79.51 Long term (current) use of inhaled steroids
CPT/HCPCS: 71045; 78452; 80048; 80053; 80306; 83880; 84439; 84443; 84481; 84484 ×4; 85025 ×2; 93005; 93017; 96372; 96374; 96375; 96376; 99285; A9502; G0378 ×3; J1650; J2270 ×2; J2405; J2785 ×2; 36415

== ENCOUNTER 2024-01-25 08:34 | Emergency (ER) | payer OTHER ==
[2024-01-25 09:21] LABS: #Basophils 0.05 10x3/uL (0.0-0.2); %Eosinophils 2.1 % (0.0-10.0); %Monocytes 7.4 % (0.0-10.0); %Neutrophils 61.3 % (42.0-75.0); Hemoglobin 11.6 g/dL (14.0-18.0); Mean Corpuscular HGB CONC 30.5 g/dL (32.0-36.0); Mean Corpuscular Hemoglobin 22.6 pg (27.0-31.0); Mean Corpuscular Volume 74.1 fL (78.0-98.0); Mean Platelet Volume 10.8 fL (7.4-10.4); Platelet Count 205 10x3/uL (130-400); RBC Distribution Width 16.3 % (11.5-14.5); Red Blood Cell (RBC) Count 5.13 mill/uL (4.70-6.10)
[2024-01-25 09:30] LABS: ALT (SGPT) 21 U/L (8-55); AST (SGOT) 17 U/L (5-34); Albumin 4.2 g/dL (3.5-5.0); Alkaline Phosphatase 138 U/L (40-110); Anion Gap 14 mmol/L (10-20); BUN (Urea Nitrogen) 13 mg/dL (8.9-20.6); Bilirubin, Total 0.4 mg/dL (0.2-1.2); Calc. Creatinine Clearance 0 mL/min (70-130); Calcium 9.5 mg/dL (7.8-10.44); Carbon Dioxide 26 mmol/L (22-29); Chloride 106 mmol/L (98-107); Estimated GFR 98; Globulin 2.8 g/dL (2.4-3.5); Glucose 89 mg/dL (70-105); Potassium 4.1 mmol/L (3.5-5.1); Sodium 142 mmol/L (136-145)
[2024-01-25 09:38] LABS: Troponin I Less than 0.010 ng/mL (< 0.028)
[2024-01-25 09:45] LABS: Elliptocytes SLIGHT = 2-5 cells HPF (0-1); Platelet Adequacy Comment Platelets Normal; Polychromasia SLIGHT = 2-3 cells HPF (0-2); Schistocytes SLIGHT = 2-5 cells HPF (0-1)
[2024-01-25] MEDS ORDERED: HYDROcodone/Acetaminophen 10/325 mg Tablet ONE (09:47)
[2024-01-25] MEDS ORDERED: Morphine 4 MG/ML VIAL ONE (11:21)
[2024-01-25 11:29] LABS: Troponin I Less than 0.010 ng/mL (< 0.028)
== END 2024-01-25 12:00 | disposition home or self-care (01) ==
LOC: ERS 08:34
DX: R07.89 Other chest pain (principal); I48.91 Unspecified atrial fibrillation; I10 Essential (primary) hypertension
CPT/HCPCS: 71045; 80053; 83735; 83880; 84484 ×2; 85025; 93005; J2270; 36415; 96372

== ENCOUNTER 2024-01-28 06:40 | Inpatient (IN) | payer OTHER ==
[2024-01-28] MEDS ORDERED: Acetaminophen 500 MG TAB ONE (08:27)
[2024-01-28 08:29] LABS: Amphetamine Not Detected (NotDetected); Barbiturates Screen Not Detected (NotDetected); Benzodiazepine Screen Detected (NotDetected); Cocaine Metabolite Screen Not Detected (NotDetected); Methadone Not Detected (NotDetected); Methamphetamine Not Detected (NotDetected); Opiate Screen Detected (NotDetected); Oxycodone Screen Not Detected (NotDetected); Phencyclidine (PCP) Not Detected (NotDetected); THC/Cannabinoid Screen Not Detected (NotDetected); Tricyclic Screen Detected (NotDetected)
[2024-01-28 08:31] LABS: #Basophils 0.05 10x3/uL (0.0-0.2); %Basophils 0.7 % (0.0-1.0); %Eosinophils 1.2 % (0.0-10.0); %Lymphocytes 27.5 % (21.0-51.0); %Monocytes 8.7 % (0.0-10.0); %Neutrophils 61.6 % (42.0-75.0); Hematocrit 33.1 % (42.0-52.0); Hemoglobin 10.2 g/dL (14.0-18.0); Mean Corpuscular HGB CONC 30.8 g/dL (32.0-36.0); Mean Corpuscular Hemoglobin 22.5 pg (27.0-31.0); Mean Corpuscular Volume 72.9 fL (78.0-98.0); Mean Platelet Volume 10.8 fL (7.4-10.4); Platelet Count 232 10x3/uL (130-400); RBC Distribution Width 16.2 % (11.5-14.5); Red Blood Cell (RBC) Count 4.54 mill/uL (4.70-6.10)
[2024-01-28] MEDS ORDERED: Ondansetron PF 4 MG/2 ML Vial ONE (08:35)
[2024-01-28] MEDS ORDERED: Famotidine/PF 20 mg/2ml Vial ONE (08:35)
[2024-01-28] MEDS ORDERED: Pantoprazole 40 MG VIAL ONE (08:35)
[2024-01-28 08:46] LABS: ALT (SGPT) 15 U/L (8-55); AST (SGOT) 13 U/L (5-34); Albumin 4.1 g/dL (3.5-5.0); Alkaline Phosphatase 132 U/L (40-110); Anion Gap 11 mmol/L (10-20); BUN (Urea Nitrogen) 14 mg/dL (8.9-20.6); Bilirubin, Total 0.6 mg/dL (0.2-1.2); Calc. Creatinine Clearance 0 mL/min (70-130); Calcium 9.3 mg/dL (7.8-10.44); Carbon Dioxide 27 mmol/L (22-29); Chloride 104 mmol/L (98-107); Estimated GFR 38; Globulin 2.5 g/dL (2.4-3.5); Glucose 112 mg/dL (70-105); Magnesium 1.8 mg/dL (1.6-2.6); Potassium 3.9 mmol/L (3.5-5.1); Protein, Total 6.6 g/dL (6.0-8.3); Sodium 138 mmol/L (136-145)
[2024-01-28 08:47] LABS: Acetaminophen Less than 10 mcg/mL (10.0-30.0); Alcohol Less than 10.0 mg/dL (Less than 10); Salicylate Less than 8.0 mg/dL (15.0-30.0); Troponin I Less than 0.010 ng/mL (< 0.028)
[2024-01-28 08:59] LABS: Actual Bicarbonate (HCO3v) 23.3 mEq/L (22-28); Base Excess -4.2 mEq/L (-2.0 to +3.0); Calcium, Ionized (venous) 1.17 mmol/L (1.16-1.32); Chloride (VBG) 101 mmol/L (98-106); Hematocrit-VBG 33 % (42.0-52.0); Hemoglobin (Hb) 11.3 g/dL (13.1-17.2); Potassium (VBG) 3.76 mmol/L (3.70-5.30); Sodium 138 mmol/L (133-146); pH (venous) 7.253 (7.32-7.43)
[2024-01-28] MEDS ORDERED: Ondansetron ODT 4 MG TAB PO PRN (09:59)
[2024-01-28] MEDS ORDERED: Promethazine 25 MG TAB PO PRN (10:00)
[2024-01-28] MEDS ORDERED: ALPRAZolam 1 MG TAB PO PRN (10:00)
[2024-01-28] MEDS ORDERED: Albuterol 1.25 MG (3 mL) NEB NEB PRN (10:10)
[2024-01-28] MEDS ORDERED: Iopamidol-370 76% 500 ML MDV (1 ML CHARGE) ONE (10:21)
[2024-01-28 13:13] LABS: Bacteria/HPF 4+ HPF (None Seen); Bilirubin Negative (Negative); Blood, Urine Negative (Negative); CAUTI Indications for Culture Dysuria,urgency,freq; Clarity Turbid (Clear); Glucose, Urine (Dipstick) Normal (Negative); Ketone, Urine Negative (Negative); Leukocyte 75 Leu/uL (Negative); Mucous/LPF Rare LPF (<2+); Nitrite Negative (Negative); Protein, Urine (Dipstick) 30 mg/dL (Neg-Trace); RBC/HPF 0-3 HPF (0-3); Specific Gravity, Urine 1.017 (1.002-1.036); Squamous Epithelial 0-3 HPF (0-3); Urobilinogen Normal mg/dL (Less than 2)
[2024-01-28 13:15] LABS: Urine Culture Reflex No No
[2024-01-28] MEDS ORDERED: HYDROcodone/Acetaminophen 10/325 mg Tablet ONE ×2 (15:14→16:08)
[2024-01-28] MEDS: HYDROcodone/Acetaminophen 10/325 mg Tablet PO PRN (16:11)
[2024-01-28] MEDS: Pregabalin 75 MG CAP PO SCH (17:33)
[2024-01-28 17:42] LABS: Troponin I Less than 0.010 ng/mL (< 0.028)
[2024-01-28 18:30] VITALS: BMI 21.7
[2024-01-28] MEDS: Pantoprazole DR 40 MG TAB PO SCH (21:05)
[2024-01-28] MEDS: QUEtiapine 200 MG TAB PO SCH (21:05)
[2024-01-28] MEDS: Heparin 5,000 UNITS/ML VIAL SC SCH (21:09)
[2024-01-28 21:21] LABS: Troponin I Less than 0.010 ng/mL (< 0.028)
[2024-01-29 01:18] LABS: Troponin I 0.011 ng/mL (< 0.028)
[2024-01-29 05:24] LABS: Anion Gap 16 mmol/L (10-20); BUN (Urea Nitrogen) 19 mg/dL (8.9-20.6); Calc. Creatinine Clearance 80 mL/min (70-130); Calcium 8.7 mg/dL (7.8-10.44); Carbon Dioxide 18 mmol/L (22-29); Chloride 111 mmol/L (98-107); Estimated GFR 54; Glucose 93 mg/dL (70-105); Potassium 3.9 mmol/L (3.5-5.1); Sodium 141 mmol/L (136-145)
[2024-01-29] MEDS: Levothyroxine 150 MCG TAB PO SCH (05:52)
[2024-01-29 07:15] LABS: Hematocrit 29.9 % (42.0-52.0); Hemoglobin 9.2 g/dL (14.0-18.0); Mean Corpuscular HGB CONC 30.8 g/dL (32.0-36.0); Mean Corpuscular Hemoglobin 22.7 pg (27.0-31.0); Mean Corpuscular Volume 73.8 fL (78.0-98.0); Mean Platelet Volume 11.1 fL (7.4-10.4); Platelet Count 168 10x3/uL (130-400); RBC Distribution Width 16.4 % (11.5-14.5); Red Blood Cell (RBC) Count 4.05 mill/uL (4.70-6.10)
[2024-01-29 07:16] LABS: #Basophils 0.04 10x3/uL (0.0-0.2); %Basophils 0.7 % (0.0-1.0); %Eosinophils 1.7 % (0.0-10.0); %Lymphocytes 28.3 % (21.0-51.0); %Monocytes 6.6 % (0.0-10.0); %Neutrophils 62.5 % (42.0-75.0)
[2024-01-29 07:53] LABS: Platelet Adequacy Comment Platelets Normal; RBC Morphology Within Normal Limits
[2024-01-29] MEDS: Sodium Chloride 0.9% 1,000 ML IV SCH (08:07)
[2024-01-29] MEDS: Vancomycin (BATCH) 2.5 GM in Premix 1 BAG IVPB SCH (08:51)
[2024-01-29] MEDS ORDERED: Vancomycin (BATCH) 1.75 GM in Premix 1 BAG IVPB SCH (09:00)
[2024-01-29] MEDS: Aspirin 81 mg Enteric Coated Tablet PO SCH (09:30)
[2024-01-29] MEDS: DULoxetine 30 MG CAP PO SCH (09:30)
[2024-01-29] MEDS: Lorazepam 2 MG/ML VIAL SLOW IVP PRN (16:16)
[2024-01-29] MEDS: Vancomycin (BATCH) 1.25 GM in Premix 1 BAG IVPB SCH (21:31)
[2024-01-29] MEDS: Temazepam 15 MG CAP PO PRN (21:49)
[2024-01-30 05:36] LABS: Vancomycin, Random 21.3 ug/mL (See Comment)
[2024-01-30 06:07] LABS: ALT (SGPT) 22 U/L (8-55); AST (SGOT) 23 U/L (5-34); Albumin 3.5 g/dL (3.5-5.0); Alkaline Phosphatase 124 U/L (40-110); Anion Gap 16 mmol/L (10-20); BUN (Urea Nitrogen) 14 mg/dL (8.9-20.6); Bilirubin, Total 0.3 mg/dL (0.2-1.2); Calc. Creatinine Clearance 117 mL/min (70-130); Calcium 8.4 mg/dL (7.8-10.44); Carbon Dioxide 21 mmol/L (22-29); Chloride 111 mmol/L (98-107); Estimated GFR 86; Globulin 2.3 g/dL (2.4-3.5); Glucose 94 mg/dL (70-105); Potassium 3.8 mmol/L (3.5-5.1); Protein, Total 5.8 g/dL (6.0-8.3); Sodium 144 mmol/L (136-145)
[2024-01-30 06:35] LABS: #Basophils 0.04 10x3/uL (0.0-0.2); %Basophils 0.8 % (0.0-1.0); %Lymphocytes 30.3 % (21.0-51.0); %Monocytes 7.4 % (0.0-10.0); %Neutrophils 59.3 % (42.0-75.0); Hematocrit 30.5 % (42.0-52.0); Hemoglobin 9.2 g/dL (14.0-18.0); Mean Corpuscular HGB CONC 30.2 g/dL (32.0-36.0); Mean Corpuscular Hemoglobin 22.8 pg (27.0-31.0); Mean Corpuscular Volume 75.5 fL (78.0-98.0); Mean Platelet Volume 10.9 fL (7.4-10.4); Platelet Count 149 10x3/uL (130-400); RBC Distribution Width 16.2 % (11.5-14.5); Red Blood Cell (RBC) Count 4.04 mill/uL (4.70-6.10)
[2024-01-30] MEDS: hydrOXYzine 25 MG TAB PO PRN (11:30)
[2024-01-30] MEDS: Losartan 25 MG TAB PO SCH (15:57)
[2024-01-30] MEDS: Acetaminophen 325 MG TAB PO PRN (18:07)
[2024-01-31 05:06] LABS: #Basophils Less than 0.03 10x3/uL (0.0-0.2); %Basophils 0.5 % (0.0-1.0); %Eosinophils 2.2 % (0.0-10.0); %Lymphocytes 26.7 % (21.0-51.0); %Monocytes 8.8 % (0.0-10.0); %Neutrophils 61.6 % (42.0-75.0); Hematocrit 34.5 % (42.0-52.0); Hemoglobin 10.4 g/dL (14.0-18.0); Mean Corpuscular HGB CONC 30.1 g/dL (32.0-36.0); Mean Corpuscular Hemoglobin 22.9 pg (27.0-31.0); Platelet Count 178 10x3/uL (130-400); RBC Distribution Width 16.1 % (11.5-14.5); Red Blood Cell (RBC) Count 4.54 mill/uL (4.70-6.10)
[2024-01-31 08:39] LABS: ALT (SGPT) 85 U/L (8-55); AST (SGOT) 105 U/L (5-34); Albumin 3.8 g/dL (3.5-5.0); Alkaline Phosphatase 186 U/L (40-110); Anion Gap 17 mmol/L (10-20); BUN (Urea Nitrogen) 11 mg/dL (8.9-20.6); Bilirubin, Total 0.5 mg/dL (0.2-1.2); Calc. Creatinine Clearance 133 mL/min (70-130); Calcium 9.2 mg/dL (7.8-10.44); Carbon Dioxide 20 mmol/L (22-29); Chloride 107 mmol/L (98-107); Estimated GFR 100; Glucose 82 mg/dL (70-105); Protein, Total 6.8 g/dL (6.0-8.3); Sodium 140 mmol/L (136-145)
[2024-01-31] MEDS: Losartan 25 MG TAB PO SCH ×2 (08:51→21:02)
[2024-01-31] MEDS ORDERED: Iopamidol-370 76% 500 ML MDV (1 ML CHARGE) ONE (09:11)
[2024-01-31] MEDS: HYDROcodone/Acetaminophen 5/325 mg Tablet PO PRN (10:42)
[2024-02-01 06:46] LABS: ALT (SGPT) 66 U/L (8-55); AST (SGOT) 52 U/L (5-34); Albumin 3.5 g/dL (3.5-5.0); Alkaline Phosphatase 161 U/L (40-110); Anion Gap 17 mmol/L (10-20); BUN (Urea Nitrogen) 10 mg/dL (8.9-20.6); Bilirubin, Total 0.5 mg/dL (0.2-1.2); Calc. Creatinine Clearance 142 mL/min (70-130); Calcium 9.2 mg/dL (7.8-10.44); Carbon Dioxide 19 mmol/L (22-29); Chloride 107 mmol/L (98-107); Estimated GFR 107; Globulin 2.8 g/dL (2.4-3.5); Glucose 78 mg/dL (70-105); Potassium 3.9 mmol/L (3.5-5.1); Protein, Total 6.3 g/dL (6.0-8.3); Sodium 139 mmol/L (136-145)
[2024-02-01 07:13] LABS: Vancomycin, Random 24.5 ug/mL (See Comment)
[2024-02-01 07:43] LABS: Anisocytosis SLIGHT = 6-15 cells HPF (0-5); Elliptocytes SLIGHT = 2-5 cells HPF (0-1); Hypochromia SLIGHT = 6-15 cells HPF (0-5); Ovalocytes SLIGHT = 2-5 cells HPF (0-1); Platelet Adequacy Comment Platelets Decreased; Polychromasia SLIGHT = 2-3 cells HPF (0-2)
[2024-02-01 07:50] LABS: #Basophils 0.03 10x3/uL (0.0-0.2); %Basophils 1.2 % (0.0-1.0); %Eosinophils 4.1 % (0.0-10.0); %Lymphocytes 37.4 % (21.0-51.0); %Monocytes 11.5 % (0.0-10.0); %Neutrophils 45.4 % (42.0-75.0)
[2024-02-01 08:36] VITALS: BP 177/103; TEMP 97.8
[2024-02-01 10:01] LABS: Hematocrit 39.3 % (42.0-52.0); Hemoglobin 12.2 g/dL (14.0-18.0); Mean Corpuscular Hemoglobin 22.9 pg (27.0-31.0); Mean Corpuscular Volume 73.7 fL (78.0-98.0); Platelet Count 175 10x3/uL (130-400); RBC Distribution Width 16.2 % (11.5-14.5); Red Blood Cell (RBC) Count 5.33 mill/uL (4.70-6.10)
[2024-02-01] MEDS: Ondansetron PF 4 MG/2 ML Vial IVP PRN (10:52)
== END 2024-02-01 12:28 | disposition home or self-care (01) | DRG 315 ==
LOC: ERS 06:40 → ERHOLD 09:45 → 2SW 16:23 → OBSVTOIN 01-30 07:17
PROVIDERS: ADMIT Hospitalist; ATTEND Hospitalist
DX: I95.9 Hypotension, unspecified (principal); N17.9 Acute kidney failure, unspecified; N39.0 Urinary tract infection, site not specified; R78.81 Bacteremia; I10 Essential (primary) hypertension; E06.3 Autoimmune thyroiditis; E03.9 Hypothyroidism, unspecified; K21.9 Gastro-esophageal reflux disease without esophagitis; G43.909 Migraine, unspecified, not intractable, without status migrainosus; J44.9 Chronic obstructive pulmonary disease, unspecified; I48.91 Unspecified atrial fibrillation; F41.9 Anxiety disorder, unspecified; F32.A Depression, unspecified; T46.5X5A Adverse effect of other antihypertensive drugs, initial encounter; Z88.8 Allergy status to other drugs, medicaments and biological substances; Z79.899 Other long term (current) drug therapy; Z88.0 Allergy status to penicillin; Z79.82 Long term (current) use of aspirin; Z82.49 Family history of ischemic heart disease and other diseases of the circulatory system; Z98.890 Other specified postprocedural states
CPT/HCPCS: 36415; 70450; 71045; 71275; 74174; 74177; 80048; 80053; 80202; 80306; 80307; 81001; 82805; 83605; 83690; 83735; 84484; 85025; 86141; 86850; 86900; 86901; 87040; 87077; 87086; 87149; 87186; 93005; C9113; J1644; J2060; J2405; J3370; J7050; Q9967; S0028

== ENCOUNTER 2024-02-07 23:54 | Emergency (ER) | payer OTHER ==
[2024-02-08 01:10] LABS: #Basophils 0.05 10x3/uL (0.0-0.2); %Basophils 0.6 % (0.0-1.0); %Eosinophils 0.4 % (0.0-10.0); %Lymphocytes 17.2 % (21.0-51.0); %Monocytes 7.9 % (0.0-10.0); %Neutrophils 73.6 % (42.0-75.0); Hematocrit 35.2 % (42.0-52.0); Mean Corpuscular HGB CONC 31.3 g/dL (32.0-36.0); Mean Corpuscular Hemoglobin 22.7 pg (27.0-31.0); Mean Corpuscular Volume 72.6 fL (78.0-98.0); Mean Platelet Volume 11.2 fL (7.4-10.4); Platelet Count 219 10x3/uL (130-400); RBC Distribution Width 16.8 % (11.5-14.5); Red Blood Cell (RBC) Count 4.85 mill/uL (4.70-6.10)
[2024-02-08 01:27] LABS: ALT (SGPT) 44 U/L (8-55); AST (SGOT) 35 U/L (5-34); Alkaline Phosphatase 164 U/L (40-110); Anion Gap 14 mmol/L (10-20); BUN (Urea Nitrogen) 25 mg/dL (8.9-20.6); Bilirubin, Total 0.2 mg/dL (0.2-1.2); Calc. Creatinine Clearance 0 mL/min (70-130); Calcium 10.8 mg/dL (7.8-10.44); Carbon Dioxide 20 mmol/L (22-29); Chloride 112 mmol/L (98-107); Estimated GFR 61; Globulin 3.4 g/dL (2.4-3.5); Glucose 120 mg/dL (70-105); Magnesium 1.9 mg/dL (1.6-2.6); Potassium 4.8 mmol/L (3.5-5.1); Protein, Total 7.4 g/dL (6.0-8.3); Sodium 141 mmol/L (136-145)
[2024-02-08 01:30] LABS: Troponin I Less than 0.010 ng/mL (< 0.028)
[2024-02-08 01:36] LABS: Lipase 21 U/L (8-78)
== END 2024-02-08 01:28 | disposition home or self-care (01) ==
LOC: ERS 23:54
DX: R52 Pain, unspecified (principal); N17.9 Acute kidney failure, unspecified
CPT/HCPCS: 36415; 71045; 80053; 83690; 83735; 84484; 85025; 93005

== ENCOUNTER 2024-04-09 10:16 | Emergency (ER) | payer OTHER ==
[2024-04-09 11:44] LABS: Hematocrit 34.4 % (42.0-52.0); Hemoglobin 10.9 g/dL (14.0-18.0); Mean Corpuscular HGB CONC 31.7 g/dL (32.0-36.0); Mean Corpuscular Hemoglobin 22.9 pg (27.0-31.0); Mean Corpuscular Volume 72.4 fL (78.0-98.0); Mean Platelet Volume 10.7 fL (7.4-10.4); Platelet Count 148 10x3/uL (130-400); RBC Distribution Width 19.7 % (11.5-14.5); Red Blood Cell (RBC) Count 4.75 mill/uL (4.70-6.10)
[2024-04-09] MEDS ORDERED: Ketorolac Tromethamine 30 MG (1 mL) VIAL ONE (11:47)
[2024-04-09] MEDS ORDERED: Morphine 4 MG/ML VIAL ONE (11:47)
[2024-04-09 12:03] LABS: ALT (SGPT) 34 U/L (8-55); AST (SGOT) 26 U/L (5-34); Albumin 4.2 g/dL (3.5-5.0); Alkaline Phosphatase 119 U/L (40-110); Anion Gap 14 mmol/L (10-20); BUN (Urea Nitrogen) 16 mg/dL (8.9-20.6); Bilirubin, Total 0.2 mg/dL (0.2-1.2); Calc. Creatinine Clearance 0 mL/min (70-130); Calcium 9.4 mg/dL (7.8-10.44); Carbon Dioxide 22 mmol/L (22-29); Chloride 110 mmol/L (98-107); Estimated GFR 99; Globulin 2.8 g/dL (2.4-3.5); Glucose 98 mg/dL (70-105); Potassium 3.4 mmol/L (3.5-5.1); Sodium 143 mmol/L (136-145)
[2024-04-09 12:07] LABS: Troponin I Less than 0.010 ng/mL (< 0.028)
[2024-04-09 12:46] LABS: Anisocytosis SLIGHT = 6-15 cells HPF (0-5); Elliptocytes SLIGHT = 2-5 cells HPF (0-1); Macrocytosis SLIGHT = 6-15 cells HPF (0-5); Platelet Adequacy Comment Platelets Normal; Polychromasia SLIGHT = 2-3 cells HPF (0-2)
== END 2024-04-09 13:43 | disposition home or self-care (01) ==
LOC: ERS 10:16
DX: F41.0 Panic disorder [episodic paroxysmal anxiety] (principal); R07.89 Other chest pain; I10 Essential (primary) hypertension
CPT/HCPCS: 71045; 80053; 84484; 85025; 93005; J1885; J2272; 96374; 96375

== ENCOUNTER 2024-05-06 11:04 | Inpatient (IN) | payer OTHER ==
[2024-05-06] MEDS ORDERED: Iopamidol-370 76% 500 ML MDV (1 ML CHARGE) ONE (11:30)
[2024-05-06 12:18] LABS: Bilirubin Negative (Negative); Blood, Urine Negative (Negative); CAUTI Indications for Culture < 2yrs of age; Clarity Turbid (Clear); Glucose, Urine (Dipstick) Normal (Negative); Ketone, Urine Negative (Negative); Leukocyte Negative Leu/uL (Negative); Nitrite Negative (Negative); Protein, Urine (Dipstick) 20 mg/dL (Neg-Trace); RBC/HPF 0-3 HPF (0-3); Specific Gravity, Urine 1.026 (1.002-1.036); Squamous Epithelial 0-3 HPF (0-3); Urobilinogen Normal mg/dL (Less than 2); pH, Urine 5.5 (5.0-9.0)
[2024-05-06 12:20] LABS: Bacteria/HPF 1+ HPF (None Seen)
[2024-05-06 12:21] LABS: Urine Culture Reflex Yes Yes
[2024-05-06] MEDS ORDERED: Morphine 4 MG/ML VIAL ONE (13:52)
[2024-05-06] MEDS ORDERED: Ondansetron PF 4 MG/2 ML Vial ONE (13:52)
[2024-05-06 14:40] LABS: #Basophils 0.04 10x3/uL (0.0-0.2); %Basophils 0.7 % (0.0-1.0); %Eosinophils 1.6 % (0.0-10.0); %Lymphocytes 23.3 % (21.0-51.0); %Neutrophils 67.2 % (42.0-75.0); Hematocrit 39.9 % (42.0-52.0); Hemoglobin 13.3 g/dL (14.0-18.0); Mean Corpuscular HGB CONC 33.3 g/dL (32.0-36.0); Mean Corpuscular Hemoglobin 25.7 pg (27.0-31.0); Mean Platelet Volume 9.9 fL (7.4-10.4); Platelet Count 253 10x3/uL (130-400); RBC Distribution Width 22.1 % (11.5-14.5); Red Blood Cell (RBC) Count 5.18 mill/uL (4.70-6.10)
[2024-05-06 14:46] LABS: ALT (SGPT) 33 U/L (8-55); AST (SGOT) 21 U/L (5-34); Albumin 4.4 g/dL (3.5-5.0); Alkaline Phosphatase 124 U/L (40-110); Anion Gap 14 mmol/L (10-20); BUN (Urea Nitrogen) 25 mg/dL (8.9-20.6); Bilirubin, Total 0.4 mg/dL (0.2-1.2); Calc. Creatinine Clearance 0 mL/min (70-130); Calcium 9.4 mg/dL (7.8-10.44); Carbon Dioxide 27 mmol/L (22-29); Chloride 107 mmol/L (98-107); Estimated GFR 69; Globulin 2.9 g/dL (2.4-3.5); Glucose 85 mg/dL (70-105); Lipase 13 U/L (8-78); Potassium 3.5 mmol/L (3.5-5.1); Protein, Total 7.3 g/dL (6.0-8.3); Sodium 144 mmol/L (136-145)
[2024-05-06] MEDS ORDERED: Ketorolac Tromethamine 30 MG (1 mL) VIAL ONE (16:31)
[2024-05-06 17:46] VITALS: BMI 27.3
[2024-05-06] MEDS ORDERED: Ondansetron PF 4 MG/2 ML Vial IVP PRN (18:23)
[2024-05-06] MEDS ORDERED: Senokot S 8.6-50 MG TAB PO PRN (18:23)
[2024-05-06] MEDS ORDERED: Albuterol 1.25 MG (3 mL) NEB NEB PRN (18:26)
[2024-05-06] MEDS ORDERED: Dextrose 50% Abboject 50 ML SYRINGE SLOW IVP PRN (18:39)
[2024-05-06] MEDS ORDERED: Glucagon 1 MG/ML KIT IM PRN (18:39)
[2024-05-06] MEDS ORDERED: Dextrose 5% in Water 1,000 ML IV PRN (18:39)
[2024-05-06] MEDS ORDERED: Insulin Lispro 100 UNIT/ML 10 ML VIAL SC PRN (18:39)
[2024-05-06] MEDS: Morphine 4 MG/ML VIAL SLOW IVP SCH (20:17)
[2024-05-06] MEDS: Bisacodyl 10 MG SUPP PR PRN (20:26)
[2024-05-06] MEDS: Fleet Saline Enema 133 ML BOT PR SCH (21:30)
[2024-05-06] MEDS: Lactulose 20 GM (30 mL) UDCUP PO SCH (22:24)
[2024-05-06] MEDS: Promethazine 25 MG TAB PO PRN (22:34)
[2024-05-06] MEDS: Sodium Chloride 0.9% 1,000 ML IV SCH (23:50)
[2024-05-06] MEDS: Promethazine HCl 12.5 MG in Sodium Chloride 0.9% 50 ML IVPB SCH (23:50)
[2024-05-07] MEDS: Dicyclomine 10 MG CAP PO SCH ×2 (00:33→09:11)
[2024-05-07] MEDS: Senokot S 8.6-50 MG TAB PO SCH ×2 (00:33→09:11)
[2024-05-07] MEDS: QUEtiapine 200 MG TAB PO SCH (00:33)
[2024-05-07] MEDS: ALPRAZolam 1 MG TAB PO PRN (00:34)
[2024-05-07] MEDS: Pantoprazole DR 40 MG TAB PO SCH (00:54)
[2024-05-07] MEDS: Pregabalin 50 MG CAP PO SCH (01:27)
[2024-05-07] MEDS: Famotidine/PF 20 mg/2ml Vial SLOW IVP SCH (03:33)
[2024-05-07 04:48] LABS: #Basophils 0.03 10x3/uL (0.0-0.2); %Basophils 0.5 % (0.0-1.0); %Eosinophils 1.3 % (0.0-10.0); %Lymphocytes 25.5 % (21.0-51.0); %Monocytes 10.1 % (0.0-10.0); %Neutrophils 62.4 % (42.0-75.0); Hematocrit 33.6 % (42.0-52.0); Mean Corpuscular HGB CONC 32.7 g/dL (32.0-36.0); Mean Corpuscular Hemoglobin 25.8 pg (27.0-31.0); Mean Corpuscular Volume 78.9 fL (78.0-98.0); Mean Platelet Volume 10.1 fL (7.4-10.4); Platelet Count 184 10x3/uL (130-400); RBC Distribution Width 21.6 % (11.5-14.5); Red Blood Cell (RBC) Count 4.26 mill/uL (4.70-6.10)
[2024-05-07 05:43] LABS: ALT (SGPT) 46 U/L (8-55); AST (SGOT) 42 U/L (5-34); Albumin 3.8 g/dL (3.5-5.0); Alkaline Phosphatase 109 U/L (40-110); Anion Gap 14 mmol/L (10-20); BUN (Urea Nitrogen) 22 mg/dL (8.9-20.6); Bilirubin, Total 0.4 mg/dL (0.2-1.2); Calc. Creatinine Clearance 117 mL/min (70-130); Calcium 8.8 mg/dL (7.8-10.44); Carbon Dioxide 22 mmol/L (22-29); Chloride 109 mmol/L (98-107); Estimated GFR 92; Globulin 2.4 g/dL (2.4-3.5); Glucose 79 mg/dL (70-105); Potassium 3.8 mmol/L (3.5-5.1); Protein, Total 6.2 g/dL (6.0-8.3); Sodium 141 mmol/L (136-145)
[2024-05-07] MEDS: Levothyroxine 150 MCG TAB PO SCH (05:51)
[2024-05-07] MEDS: Losartan 25 MG TAB PO SCH (09:11)
[2024-05-07] MEDS: DULoxetine 30 MG CAP PO SCH (09:11)
[2024-05-07 11:25] VITALS: BMI 27.3
[2024-05-07] MEDS: Morphine 4 MG/ML VIAL SLOW IVP SCH (12:11)
[2024-05-07] MEDS: Lactulose 20 GM (30 mL) UDCUP PO SCH ×2 (12:12→13:43)
[2024-05-07] MEDS: Morphine 2 MG/ML VIAL SLOW IVP PRN (17:39)
[2024-05-07] MEDS: GoLYTELY 4,000 ml Bottle PO SCH (18:09)
[2024-05-07] MEDS: Temazepam 15 MG CAP PO PRN (20:52)
[2024-05-08] MEDS: Acetaminophen 325 MG TAB PO PRN (04:34)
[2024-05-08 06:33] LABS: #Basophils 0.03 10x3/uL (0.0-0.2); %Basophils 0.8 % (0.0-1.0); %Eosinophils 2.3 % (0.0-10.0); %Lymphocytes 22.7 % (21.0-51.0); %Monocytes 7.8 % (0.0-10.0); %Neutrophils 66.4 % (42.0-75.0); Hematocrit 34.1 % (42.0-52.0); Hemoglobin 11.3 g/dL (14.0-18.0); Mean Corpuscular HGB CONC 33.1 g/dL (32.0-36.0); Mean Corpuscular Hemoglobin 25.5 pg (27.0-31.0); Mean Platelet Volume 10.2 fL (7.4-10.4); Platelet Count 174 10x3/uL (130-400); RBC Distribution Width 21.5 % (11.5-14.5); Red Blood Cell (RBC) Count 4.43 mill/uL (4.70-6.10)
[2024-05-08 06:40] LABS: ALT (SGPT) 76 U/L (8-55); AST (SGOT) 49 U/L (5-34); Albumin 3.7 g/dL (3.5-5.0); Alkaline Phosphatase 157 U/L (40-110); Anion Gap 13 mmol/L (10-20); BUN (Urea Nitrogen) 18 mg/dL (8.9-20.6); Bilirubin, Total 0.7 mg/dL (0.2-1.2); Calc. Creatinine Clearance 129 mL/min (70-130); Calcium 9.1 mg/dL (7.8-10.44); Carbon Dioxide 23 mmol/L (22-29); Chloride 108 mmol/L (98-107); Estimated GFR 103; Globulin 2.4 g/dL (2.4-3.5); Glucose 80 mg/dL (70-105); Potassium 3.9 mmol/L (3.5-5.1); Protein, Total 6.1 g/dL (6.0-8.3); Sodium 140 mmol/L (136-145)
[2024-05-08] MEDS: Naloxegol 12.5 MG TAB PO SCH (09:31)
[2024-05-08] MEDS: Morphine 2 MG/ML VIAL SLOW IVP PRN ×2 (09:32→16:48)
[2024-05-09] MEDS ORDERED: Naloxone HCl 0.4 mg/ml Vial IV PRN (00:20)
[2024-05-09] MEDS: Naloxone HCl 0.4 mg/ml Vial ONE (00:35)
[2024-05-09 00:39] LABS: Actual Bicarbonate (HCO3a) 24.2 mEq/L (22-28); Base Excess (BEa) -1.6 mEq/L (-2.0 to +3.0); CO2 Tension 45.2 mmHg (35.0-45.0); Calcium, Ionized (arterial) 1.19 mmol/L (1.12-1.30); Carboxyhemoglobin (COHb) 0.3 gm% (0.0-3.0); Hematocrit-ABG 34 % (42.0-52.0); Hemoglobin (Hb) 11.7 g/dL (14.0-18.0); O2 Tension (PaO2), arterial 68.2 mmHg (80.0-100.0); Potassium - ABG Lab 3.91 mmol/L (3.70-5.30); pH, Arterial 7.346 (7.35-7.45)
[2024-05-09 00:40] LABS: Puncture Site Right Radial artery
[2024-05-09 01:10] LABS: Amphetamine Not Detected (NotDetected); Barbiturates Screen Not Detected (NotDetected); Benzodiazepine Screen Detected (NotDetected); Cocaine Metabolite Screen Not Detected (NotDetected); Methadone Not Detected (NotDetected); Methamphetamine Not Detected (NotDetected); Opiate Screen Detected (NotDetected); Oxycodone Screen Not Detected (NotDetected); Phencyclidine (PCP) Not Detected (NotDetected); THC/Cannabinoid Screen Detected (NotDetected); Tricyclic Screen Detected (NotDetected)
[2024-05-09 07:53] LABS: ALT (SGPT) 79 U/L (8-55); AST (SGOT) 40 U/L (5-34); Albumin 3.8 g/dL (3.5-5.0); Alkaline Phosphatase 188 U/L (40-110); Anion Gap 12 mmol/L (10-20); BUN (Urea Nitrogen) 17 mg/dL (8.9-20.6); Bilirubin, Total 0.6 mg/dL (0.2-1.2); Calc. Creatinine Clearance 105 mL/min (70-130); Calcium 9.1 mg/dL (7.8-10.44); Carbon Dioxide 25 mmol/L (22-29); Chloride 106 mmol/L (98-107); Estimated GFR 80; Globulin 2.5 g/dL (2.4-3.5); Glucose 77 mg/dL (70-105); Potassium 3.8 mmol/L (3.5-5.1); Protein, Total 6.3 g/dL (6.0-8.3); Sodium 139 mmol/L (136-145)
[2024-05-09 15:23] VITALS: BP 114/69; TEMP 98.4
== END 2024-05-09 15:25 | disposition home or self-care (01) | DRG 392 ==
LOC: ERS 11:04 → T4-A 16:47 → OBSVTOIN 05-07 16:20
PROVIDERS: ADMIT Student in an Organized Health Care Education/Training Program; ATTEND Family Medicine
DX: K59.03 Drug induced constipation (principal); N17.9 Acute kidney failure, unspecified; I10 Essential (primary) hypertension; R40.4 Transient alteration of awareness; F32.A Depression, unspecified; F41.9 Anxiety disorder, unspecified; E11.9 Type 2 diabetes mellitus without complications; G89.29 Other chronic pain; F19.10 Other psychoactive substance abuse, uncomplicated; E78.2 Mixed hyperlipidemia; F43.10 Post-traumatic stress disorder, unspecified; E03.9 Hypothyroidism, unspecified; F12.10 Cannabis abuse, uncomplicated; I48.91 Unspecified atrial fibrillation; D50.9 Iron deficiency anemia, unspecified; Z88.8 Allergy status to other drugs, medicaments and biological substances; Z88.5 Allergy status to narcotic agent; Z88.0 Allergy status to penicillin; Z79.890 Hormone replacement therapy; Z79.899 Other long term (current) drug therapy; Z90.49 Acquired absence of other specified parts of digestive tract; Z79.82 Long term (current) use of aspirin
CPT/HCPCS: 36415; 36600; 70450; 74018; 74177; 80053; 80306; 81001; 82728; 82805; 83540; 83550; 83605; 83690; 85025; 86141; 87086; 96375; 96376; G0378; J1885; J2272; J2310; J2405; J2550; J7030; Q0169; Q9967

== ENCOUNTER 2024-05-11 02:54 | Emergency (ER) | payer OTHER ==
[2024-05-11 04:30] LABS: Bacteria/HPF 2+ HPF (None Seen); Bilirubin Negative (Negative); Blood, Urine 1+ (Negative); CAUTI Indications for Culture Dysuria,urgency,freq; Clarity Turbid (Clear); Glucose, Urine (Dipstick) Normal (Negative); Ketone, Urine Negative (Negative); Leukocyte 500 Leu/uL (Negative); Nitrite 2+ (Negative); Protein, Urine (Dipstick) 30 mg/dL (Neg-Trace); Specific Gravity, Urine 1.018 (1.002-1.036); Squamous Epithelial None Seen HPF (0-3); Urobilinogen Normal mg/dL (Less than 2); WBC/HPF Greater than 50 HPF (0-3)
[2024-05-11] MEDS ORDERED: Morphine 4 MG/ML VIAL ONE (04:35)
[2024-05-11] MEDS ORDERED: Piperacillin/Tazobactam 3.375 GM VIAL ONE (04:35)
[2024-05-11] MEDS ORDERED: Sodium Chloride 0.9% 100 ML ONE (04:35)
[2024-05-11] MEDS ORDERED: Ondansetron PF 4 MG/2 ML Vial ONE (04:35)
[2024-05-11 04:36] LABS: #Basophils Less than 0.03 10x3/uL (0.0-0.2); %Basophils 0.2 % (0.0-1.0); %Eosinophils 0.3 % (0.0-10.0); %Lymphocytes 8.5 % (21.0-51.0); %Monocytes 7.9 % (0.0-10.0); %Neutrophils 82.7 % (42.0-75.0); Hematocrit 38.4 % (42.0-52.0); Hemoglobin 12.9 g/dL (14.0-18.0); Mean Corpuscular HGB CONC 33.6 g/dL (32.0-36.0); Mean Corpuscular Hemoglobin 26.5 pg (27.0-31.0); Mean Corpuscular Volume 78.9 fL (78.0-98.0); Mean Platelet Volume 9.5 fL (7.4-10.4); Platelet Count 190 10x3/uL (130-400); RBC Distribution Width 22.2 % (11.5-14.5); Red Blood Cell (RBC) Count 4.87 mill/uL (4.70-6.10)
[2024-05-11 04:43] LABS: Urine Culture Reflex Yes Yes
[2024-05-11] MEDS ORDERED: Ketorolac Tromethamine 30 MG (1 mL) VIAL ONE (04:52)
[2024-05-11 04:59] LABS: ALT (SGPT) 53 U/L (8-55); AST (SGOT) 18 U/L (5-34); Albumin 4.2 g/dL (3.5-5.0); Alkaline Phosphatase 195 U/L (40-110); Anion Gap 16 mmol/L (10-20); BUN (Urea Nitrogen) 14 mg/dL (8.9-20.6); Bilirubin, Total 0.6 mg/dL (0.2-1.2); Calc. Creatinine Clearance 0 mL/min (70-130); Calcium 9.8 mg/dL (7.8-10.44); Carbon Dioxide 23 mmol/L (22-29); Chloride 105 mmol/L (98-107); Estimated GFR 85; Globulin 3.3 g/dL (2.4-3.5); Glucose 114 mg/dL (70-105); Potassium 3.1 mmol/L (3.5-5.1); Protein, Total 7.5 g/dL (6.0-8.3); Sodium 141 mmol/L (136-145)
[2024-05-11] MEDS ORDERED: Potassium Chloride 20 MEQ TAB ONE (06:43)
[2024-05-11] MEDS ORDERED: Iopamidol 370 76% 100 ML VIAL ONE (11:24)
== END 2024-05-11 06:52 | disposition home or self-care (01) ==
LOC: ERS 02:54
DX: N10 Acute pyelonephritis (principal); E87.6 Hypokalemia; I10 Essential (primary) hypertension
CPT/HCPCS: 74177; 80053; 81001; 83605; 85025; 87040; 87086; J1885; J2272; J2405; J2543; 36415; 87077; 87186; 96361; 96365; 96375; Q9967

== ENCOUNTER 2024-06-03 03:33 | Inpatient (IN) | payer OTHER ==
[2024-06-03 04:45] LABS: Bacteria/HPF 1+ HPF (None Seen); Bilirubin Negative (Negative); Blood, Urine 1+ (Negative); CAUTI Indications for Culture Dysuria,urgency,freq; Clarity Turbid (Clear); Glucose, Urine (Dipstick) Normal (Negative); Ketone, Urine Negative (Negative); Leukocyte 500 Leu/uL (Negative); Nitrite Negative (Negative); Protein, Urine (Dipstick) 30 mg/dL (Neg-Trace); Specific Gravity, Urine 1.027 (1.002-1.036); Urobilinogen Normal mg/dL (Less than 2); WBC/HPF Greater than 50 HPF (0-3); pH, Urine 5.5 (5.0-9.0)
[2024-06-03 04:46] LABS: Urine Culture Reflex Yes Yes
[2024-06-03] MEDS ORDERED: Ondansetron PF 4 MG/2 ML Vial ONE ×2 (05:19→05:56)
[2024-06-03] MEDS ORDERED: Morphine 4 MG/ML VIAL ONE ×3 (05:19→07:13)
[2024-06-03] MEDS ORDERED: Sodium Chloride 0.9% 100 ML ONE (05:22)
[2024-06-03 05:43] LABS: #Basophils 0.03 10x3/uL (0.0-0.2); %Basophils 0.7 % (0.0-1.0); %Eosinophils 1.2 % (0.0-10.0); %Lymphocytes 30.4 % (21.0-51.0); %Monocytes 8.7 % (0.0-10.0); %Neutrophils 58.8 % (42.0-75.0); Hematocrit 41.8 % (42.0-52.0); Hemoglobin 13.6 g/dL (14.0-18.0); Mean Corpuscular HGB CONC 32.5 g/dL (32.0-36.0); Mean Corpuscular Hemoglobin 26.9 pg (27.0-31.0); Mean Corpuscular Volume 82.8 fL (78.0-98.0); Mean Platelet Volume 9.7 fL (7.4-10.4); Platelet Count 264 10x3/uL (130-400); RBC Distribution Width 19.4 % (11.5-14.5); Red Blood Cell (RBC) Count 5.05 mill/uL (4.70-6.10)
[2024-06-03 05:59] LABS: ALT (SGPT) 94 U/L (8-55); AST (SGOT) 34 U/L (5-34); Albumin 4.3 g/dL (3.5-5.0); Alkaline Phosphatase 212 U/L (40-110); Anion Gap 14 mmol/L (10-20); BUN (Urea Nitrogen) 16 mg/dL (8.9-20.6); Bilirubin, Total 0.3 mg/dL (0.2-1.2); Calc. Creatinine Clearance 0 mL/min (70-130); Calcium 9.3 mg/dL (7.8-10.44); Carbon Dioxide 21 mmol/L (22-29); Chloride 108 mmol/L (98-107); Estimated GFR 98; Globulin 3.3 g/dL (2.4-3.5); Glucose 83 mg/dL (70-105); Potassium 3.7 mmol/L (3.5-5.1); Protein, Total 7.6 g/dL (6.0-8.3); Sodium 139 mmol/L (136-145)
[2024-06-03] MEDS ORDERED: Meropenem 2 GM, Admixture Fee 1 EACH in Sodium Chloride 0.9% 100 ML IVPB SCH (06:00)
[2024-06-03] MEDS ORDERED: Ipratropium/Albuterol 3 ML NEB NEB PRN (08:16)
[2024-06-03] MEDS ORDERED: Docusate 100 MG CAP PO PRN (08:18)
[2024-06-03] MEDS ORDERED: Polyethylene Glycol 3350 17 GM Packet PO PRN (08:18)
[2024-06-03] MEDS ORDERED: Acetaminophen 325 MG TAB PO PRN (08:20)
[2024-06-03] MEDS: Lactated Ringer's 1,000 ML IV SCH ×2 (08:29→12:00)
[2024-06-03] MEDS: HYDROcodone/Acetaminophen 10/325 mg Tablet PO PRN (08:29)
[2024-06-03] MEDS: Meropenem 2 GM in Sodium Chloride 0.9% 100 ML IVPB SCH (08:30)
[2024-06-03] MEDS: Levothyroxine 150 MCG TAB PO SCH (08:30)
[2024-06-03] MEDS: Enoxaparin 40 MG (0.4 mL) SYRINGE SC SCH (08:30)
[2024-06-03 08:41] LABS: Lactic Acid 1.92 mmol/L (0.5-2.2)
[2024-06-03] MEDS ORDERED: ALPRAZolam 1 MG TAB PO PRN (09:26)
[2024-06-03] MEDS ORDERED: hydrOXYzine 25 MG TAB PO PRN (09:27)
[2024-06-03] MEDS: Pantoprazole DR 40 MG TAB PO SCH (09:33)
[2024-06-03 11:11] VITALS: BMI 28.0
[2024-06-03] MEDS: Ondansetron PF 4 MG/2 ML Vial IVP PRN (11:35)
[2024-06-03] MEDS: Morphine 2 MG/ML VIAL SLOW IVP PRN (11:35)
[2024-06-03 12:23] LABS: Hematocrit 39.4 % (42.0-52.0); Hemoglobin 12.8 g/dL (14.0-18.0)
[2024-06-03] MEDS: Promethazine HCl 12.5 MG in Sodium Chloride 0.9% 50 ML IVPB PRN (12:39)
[2024-06-03] MEDS: Morphine 4 MG/ML VIAL SLOW IVP PRN (13:37)
[2024-06-03] MEDS: Meropenem 1 GM in Sodium Chloride 0.9% 100 ML IVPB SCH (13:47)
[2024-06-03] MEDS: Morphine 4 MG/ML VIAL ONE (13:48)
[2024-06-03] MEDS: Acetaminophen/Codeine 30-300mg Tablet PO PRN (18:37)
[2024-06-03 19:02] LABS: Hematocrit 37.2 % (42.0-52.0); Hemoglobin 12.3 g/dL (14.0-18.0)
[2024-06-03] MEDS: Mometasone 100 MCG/Formoterol 5 MCG 120 PUFF INHALER INH SCH (19:10)
[2024-06-03] MEDS: fentaNYL 50 mcg/mL 1 mL Vial SLOW IVP SCH (20:24)
[2024-06-03] MEDS ORDERED: Amlodipine 10 MG TAB PO SCH (21:00)
[2024-06-03] MEDS: DULoxetine 30 MG CAP PO SCH (21:41)
[2024-06-03] MEDS: Pregabalin 75 MG CAP PO SCH (21:42)
[2024-06-03] MEDS: Topiramate 100 MG TAB PO SCH (21:43)
[2024-06-03] MEDS: Atorvastatin Calcium 10 MG TAB PO SCH (21:43)
[2024-06-03] MEDS: Amlodipine 10 MG TAB PO SCH (21:43)
[2024-06-03] MEDS: Pantoprazole 40 MG VIAL IVP SCH (21:52)
[2024-06-04] MEDS: Morphine 4 MG/ML VIAL SLOW IVP SCH (02:49)
[2024-06-04] MEDS: Levothyroxine 150 MCG TAB PO SCH (05:14)
[2024-06-04 05:17] LABS: #Basophils 0.03 10x3/uL (0.0-0.2); %Basophils 0.6 % (0.0-1.0); %Eosinophils 1.8 % (0.0-10.0); %Lymphocytes 21.1 % (21.0-51.0); %Monocytes 13.6 % (0.0-10.0); %Neutrophils 62.9 % (42.0-75.0); Hematocrit 33.5 % (42.0-52.0); Hemoglobin 11.1 g/dL (14.0-18.0); Mean Corpuscular HGB CONC 33.1 g/dL (32.0-36.0); Mean Corpuscular Hemoglobin 26.9 pg (27.0-31.0); Mean Corpuscular Volume 81.1 fL (78.0-98.0); Mean Platelet Volume 10.2 fL (7.4-10.4); Platelet Count 199 10x3/uL (130-400); RBC Distribution Width 19.5 % (11.5-14.5); Red Blood Cell (RBC) Count 4.13 mill/uL (4.70-6.10)
[2024-06-04 05:43] LABS: Anion Gap 13 mmol/L (10-20); BUN (Urea Nitrogen) 19 mg/dL (8.9-20.6); Calc. Creatinine Clearance 94 mL/min (70-130); Carbon Dioxide 22 mmol/L (22-29); Chloride 105 mmol/L (98-107); Estimated GFR 69; Glucose 75 mg/dL (70-105); Potassium 3.4 mmol/L (3.5-5.1); Sodium 137 mmol/L (136-145)
[2024-06-04 06:25] LABS: Calcium 8.8 mg/dL (7.8-10.44)
[2024-06-04] MEDS ORDERED: Ketamine In 0.9 % NaCl 50 MG/5 ML SYRINGE ONE (08:01)
[2024-06-04] MEDS ORDERED: PROPOFOL 20 ML ONE ×2 (08:02→08:04)
[2024-06-04] MEDS ORDERED: GLYCOPYRROLATE/PF 0.2 MG/ML VIAL ONE (08:10)
[2024-06-04] MEDS ORDERED: Lidocaine 2% PF 5 ML VIAL ONE (08:10)
[2024-06-04] MEDS ORDERED: Lidocaine 1% PF 5 ML VIAL ONE (08:18)
[2024-06-04] MEDS ORDERED: Promethazine HCl 25 MG/ML VIAL IM PRN (08:37)
[2024-06-04] MEDS ORDERED: Atorvastatin Calcium 10 MG TAB PO SCH (09:00)
[2024-06-04] MEDS: Pregabalin 75 MG CAP PO SCH (09:31)
[2024-06-04] MEDS: DULoxetine 30 MG CAP PO SCH (09:31)
[2024-06-04] MEDS: Pantoprazole DR 40 MG TAB PO SCH ×2 (09:32→22:58)
[2024-06-04] MEDS ORDERED: Electrolyte Replacement Protocol 1 EACH FS SCH (13:00)
[2024-06-04] MEDS: FLU (Fluarix Triv) TS24-25(6MOS UP)/PF 45 MCG/0.5 ML Syringe IM ONE (13:24)
[2024-06-04 13:28] LABS: Magnesium 1.6 mg/dL (1.6-2.6)
[2024-06-04] MEDS ORDERED: Electrolyte Replacement Protocol FS PRN (14:00)
[2024-06-04 16:35] LABS: Amphetamine Not Detected (NotDetected); Barbiturates Screen Not Detected (NotDetected); Benzodiazepine Screen Detected (NotDetected); Cocaine Metabolite Screen Not Detected (NotDetected); Methadone Not Detected (NotDetected); Methamphetamine Not Detected (NotDetected); Opiate Screen Not Detected (NotDetected); Oxycodone Screen Not Detected (NotDetected); Phencyclidine (PCP) Not Detected (NotDetected); THC/Cannabinoid Screen Detected (NotDetected); Tricyclic Screen Detected (NotDetected)
[2024-06-04] MEDS: Magnesium 2 GM/50 ML(in water) 2 GM in Premix 1 BAG IVPB SCH (16:40)
[2024-06-04] MEDS: SUMAtriptan Succinate 50 MG TAB PO PRN (16:40)
[2024-06-04] MEDS: Potassium Chloride 20 MEQ TAB PO SCH (16:42)
[2024-06-04 17:21] LABS: Amphetamine Not Detected (NotDetected); Barbiturates Screen Not Detected (NotDetected); Benzodiazepine Screen Detected (NotDetected); Cocaine Metabolite Screen Not Detected (NotDetected); Methadone Not Detected (NotDetected); Methamphetamine Not Detected (NotDetected); Opiate Screen Detected (NotDetected); Oxycodone Screen Not Detected (NotDetected); Phencyclidine (PCP) Not Detected (NotDetected); THC/Cannabinoid Screen Detected (NotDetected); Tricyclic Screen Not Detected (NotDetected)
[2024-06-04] MEDS: ALPRAZolam 1 MG TAB PO PRN (22:57)
[2024-06-05 05:54] LABS: #Basophils Less than 0.03 10x3/uL (0.0-0.2); %Basophils 0.5 % (0.0-1.0); %Lymphocytes 22.7 % (21.0-51.0); %Neutrophils 64.3 % (42.0-75.0); Hemoglobin 10.3 g/dL (14.0-18.0); Mean Corpuscular HGB CONC 33.2 g/dL (32.0-36.0); Mean Corpuscular Hemoglobin 27.3 pg (27.0-31.0); Mean Corpuscular Volume 82.2 fL (78.0-98.0); Mean Platelet Volume 9.8 fL (7.4-10.4); Platelet Count 172 10x3/uL (130-400); RBC Distribution Width 18.8 % (11.5-14.5); Red Blood Cell (RBC) Count 3.77 mill/uL (4.70-6.10)
[2024-06-05 06:22] LABS: Anion Gap 9 mmol/L (10-20); BUN (Urea Nitrogen) 13 mg/dL (8.9-20.6); Calc. Creatinine Clearance 131 mL/min (70-130); Calcium 8.5 mg/dL (7.8-10.44); Carbon Dioxide 26 mmol/L (22-29); Chloride 103 mmol/L (98-107); Estimated GFR 103; Glucose 99 mg/dL (70-105); Potassium 3.3 mmol/L (3.5-5.1); Sodium 135 mmol/L (136-145)
[2024-06-05] MEDS: Potassium Chloride 20 MEQ TAB PO SCH ×2 (09:10→18:29)
[2024-06-05] MEDS: Magnesium 2 GM/50 ML(in water) 2 GM in Premix 1 BAG IVPB SCH (09:12)
[2024-06-05 11:43] LABS: ALT (SGPT) 195 U/L (8-55); AST (SGOT) 114 U/L (5-34); Albumin 3.5 g/dL (3.5-5.0); Alkaline Phosphatase 314 U/L (40-110); Bilirubin, Direct 0.3 mg/dL (0.1-0.3); Bilirubin, Total 0.6 mg/dL (0.2-1.2); Lipase 21 U/L (8-78); Protein, Total 5.7 g/dL (6.0-8.3)
[2024-06-05] MEDS: Calcium Carbonate 500 MG ChewTAB PO PRN (12:07)
[2024-06-05 15:09] LABS: Potassium 3.5 mmol/L (3.5-5.1)
[2024-06-06 06:22] LABS: #Basophils 0.03 10x3/uL (0.0-0.2); %Basophils 0.8 % (0.0-1.0); %Monocytes 7.6 % (0.0-10.0); %Neutrophils 68.3 % (42.0-75.0); Hematocrit 34.5 % (42.0-52.0); Hemoglobin 11.2 g/dL (14.0-18.0); Mean Corpuscular HGB CONC 32.5 g/dL (32.0-36.0); Mean Corpuscular Hemoglobin 26.9 pg (27.0-31.0); Mean Corpuscular Volume 82.9 fL (78.0-98.0); Platelet Count 162 10x3/uL (130-400); RBC Distribution Width 19.2 % (11.5-14.5); Red Blood Cell (RBC) Count 4.16 mill/uL (4.70-6.10)
[2024-06-06 06:32] LABS: INR-International Normal Ratio 0.9; PTT 30.5 sec (22.9-36.1); Prothrombin Time 12.6 sec (12.0-14.7)
[2024-06-06 06:44] LABS: ALT (SGPT) 184 U/L (8-55); AST (SGOT) 105 U/L (5-34); Albumin 3.6 g/dL (3.5-5.0); Alkaline Phosphatase 358 U/L (40-110); Anion Gap 13 mmol/L (10-20); BUN (Urea Nitrogen) 12 mg/dL (8.9-20.6); Bilirubin, Total 0.5 mg/dL (0.2-1.2); Calc. Creatinine Clearance 147 mL/min (70-130); Calcium 8.8 mg/dL (7.8-10.44); Carbon Dioxide 25 mmol/L (22-29); Chloride 103 mmol/L (98-107); Estimated GFR 109; Globulin 2.4 g/dL (2.4-3.5); Glucose 92 mg/dL (70-105); Magnesium 2.1 mg/dL (1.6-2.6); Potassium 3.4 mmol/L (3.5-5.1); Sodium 138 mmol/L (136-145)
[2024-06-06] MEDS: Aspirin 81 mg Enteric Coated Tablet PO SCH (10:08)
[2024-06-06] MEDS: Baclofen 10 MG TAB PO SCH ×2 (12:39→20:50)
[2024-06-06] MEDS: Lidocaine 4% Patch TD SCH (14:24)
[2024-06-06] MEDS ORDERED: Milk Of Magnesia 30 ML UDCUP PO PRN (15:59)
[2024-06-06] MEDS: Polyethylene Glycol 3350 17 GM Packet PO SCH (16:38)
[2024-06-06] MEDS: Potassium Chloride 20 MEQ TAB PO SCH (16:47)
[2024-06-06] MEDS: Senokot S 8.6-50 MG TAB PO SCH (20:50)
[2024-06-06] MEDS: Transdermal Patch Removal TOP SCH (20:57)
[2024-06-07 06:28] LABS: #Basophils Less than 0.03 10x3/uL (0.0-0.2); %Basophils 0.3 % (0.0-1.0); %Eosinophils 2.1 % (0.0-10.0); %Monocytes 9.4 % (0.0-10.0); %Neutrophils 65.9 % (42.0-75.0); Hematocrit 35.4 % (42.0-52.0); Hemoglobin 11.4 g/dL (14.0-18.0); Mean Corpuscular HGB CONC 32.2 g/dL (32.0-36.0); Mean Corpuscular Hemoglobin 26.8 pg (27.0-31.0); Mean Corpuscular Volume 83.1 fL (78.0-98.0); Mean Platelet Volume 10.3 fL (7.4-10.4); Platelet Count 172 10x3/uL (130-400); RBC Distribution Width 19.6 % (11.5-14.5); Red Blood Cell (RBC) Count 4.26 mill/uL (4.70-6.10)
[2024-06-07 06:44] LABS: ALT (SGPT) 164 U/L (8-55); AST (SGOT) 73 U/L (5-34); Albumin 3.8 g/dL (3.5-5.0); Alkaline Phosphatase 348 U/L (40-110); Anion Gap 13 mmol/L (10-20); BUN (Urea Nitrogen) 10 mg/dL (8.9-20.6); Bilirubin, Total 0.4 mg/dL (0.2-1.2); Calc. Creatinine Clearance 120 mL/min (70-130); Calcium 9.1 mg/dL (7.8-10.44); Carbon Dioxide 28 mmol/L (22-29); Chloride 103 mmol/L (98-107); Estimated GFR 92; Globulin 2.6 g/dL (2.4-3.5); Glucose 84 mg/dL (70-105); Magnesium 2.1 mg/dL (1.6-2.6); Potassium 3.6 mmol/L (3.5-5.1); Protein, Total 6.4 g/dL (6.0-8.3); Sodium 140 mmol/L (136-145)
[2024-06-07] MEDS: Polyethylene Glycol 3350 17 GM Packet PO SCH (09:35)
[2024-06-07] MEDS: Naloxegol 12.5 MG TAB PO SCH (20:18)
[2024-06-07] MEDS: Lactulose 20 GM (30 mL) UDCUP PO SCH (20:19)
[2024-06-08 05:52] LABS: #Basophils Less than 0.03 10x3/uL (0.0-0.2); %Basophils 0.6 % (0.0-1.0); %Eosinophils 2.7 % (0.0-10.0); %Lymphocytes 29.2 % (21.0-51.0); %Monocytes 8.9 % (0.0-10.0); Hematocrit 35.3 % (42.0-52.0); Hemoglobin 11.4 g/dL (14.0-18.0); Mean Corpuscular HGB CONC 32.3 g/dL (32.0-36.0); Mean Corpuscular Hemoglobin 27.6 pg (27.0-31.0); Mean Corpuscular Volume 85.5 fL (78.0-98.0); Mean Platelet Volume 9.7 fL (7.4-10.4); Platelet Count 179 10x3/uL (130-400); Red Blood Cell (RBC) Count 4.13 mill/uL (4.70-6.10)
[2024-06-08 06:23] LABS: ALT (SGPT) 113 U/L (8-55); AST (SGOT) 32 U/L (5-34); Albumin 3.6 g/dL (3.5-5.0); Alkaline Phosphatase 294 U/L (40-110); Anion Gap 13 mmol/L (10-20); BUN (Urea Nitrogen) 10 mg/dL (8.9-20.6); Bilirubin, Total 0.4 mg/dL (0.2-1.2); Calc. Creatinine Clearance 139 mL/min (70-130); Carbon Dioxide 24 mmol/L (22-29); Chloride 107 mmol/L (98-107); Estimated GFR 107; Globulin 2.4 g/dL (2.4-3.5); Glucose 90 mg/dL (70-105); Potassium 3.7 mmol/L (3.5-5.1); Sodium 140 mmol/L (136-145)
[2024-06-08] MEDS: Naloxegol 12.5 MG TAB PO SCH (08:56)
[2024-06-08 09:25] VITALS: BP 104/60; TEMP 98.8
[2024-06-08] MEDS: Fosfomycin 3 GM/Packet PO SCH (11:42)
[2024-06-08] MEDS ORDERED: Fosfomycin 3 GM/Packet PO SCH (12:30)
== END 2024-06-08 13:01 | disposition home or self-care (01) | DRG 871 ==
LOC: ERS 03:33 → T4-B 06:58
PROVIDERS: ADMIT Internal Medicine; ATTEND Family Medicine
PROC: 3E03329 Introduction of Other Anti-infective into Peripheral Vein, Percutaneous Approach (ICD-10-PCS; 2024-06-03)
PROC: 0DJ08ZZ Inspection of Upper Intestinal Tract, Via Natural or Artificial Opening Endoscopic (ICD-10-PCS; principal; 2024-06-04)
DX: A41.51 Sepsis due to Escherichia coli [E. coli] (principal); K22.6 Gastro-esophageal laceration-hemorrhage syndrome; N10 Acute pyelonephritis; M87.852 Other osteonecrosis, left femur; M87.851 Other osteonecrosis, right femur; I10 Essential (primary) hypertension; I48.91 Unspecified atrial fibrillation; E03.9 Hypothyroidism, unspecified; G89.4 Chronic pain syndrome; D64.9 Anemia, unspecified; R31.9 Hematuria, unspecified; K44.9 Diaphragmatic hernia without obstruction or gangrene; K21.9 Gastro-esophageal reflux disease without esophagitis; F39 Unspecified mood [affective] disorder; J44.9 Chronic obstructive pulmonary disease, unspecified; Z90.49 Acquired absence of other specified parts of digestive tract; Z98.890 Other specified postprocedural states; Z82.49 Family history of ischemic heart disease and other diseases of the circulatory system; Z79.899 Other long term (current) drug therapy; Z88.0 Allergy status to penicillin; Z88.8 Allergy status to other drugs, medicaments and biological substances
CPT/HCPCS: 36415; 74176; 76870; 80048; 80053; 80076; 80306; 81001; 83605; 83690; 83735; 84443; 85025; 85610; 85730; 86850; 86900; 86901; 87040; 87077; 87086; 87186; 90656; 93976; 96374; 96375; 96376; J1650; J2183; J2185; J2272; J2405; J2470; J2550; J2704; J3010; J3475; J3490; J7120

== ENCOUNTER 2024-06-12 09:41 | Emergency (ER) | payer OTHER ==
[2024-06-12 10:44] LABS: Bilirubin Negative (Negative); Blood, Urine Negative (Negative); CAUTI Indications for Culture Dysuria,urgency,freq; Clarity Turbid (Clear); Glucose, Urine (Dipstick) Normal (Negative); Ketone, Urine Negative (Negative); Leukocyte 75 Leu/uL (Negative); Nitrite Negative (Negative); Protein, Urine (Dipstick) 10 mg/dL (Neg-Trace); Specific Gravity, Urine 1.035 (1.002-1.036); Squamous Epithelial 0-3 HPF (0-3); Urobilinogen Normal mg/dL (Less than 2); pH, Urine 5.5 (5.0-9.0)
[2024-06-12 11:06] LABS: Bacteria/HPF Rare-Few HPF (None Seen); RBC/HPF 0-3 HPF (0-3)
[2024-06-12 11:07] LABS: Calcium Oxalate Crystals 1+ HPF (None Seen)
[2024-06-12 11:08] LABS: Urine Culture Reflex No No
[2024-06-12] MEDS ORDERED: Morphine 4 MG/ML VIAL ONE ×2 (11:37→13:05)
[2024-06-12] MEDS ORDERED: Ondansetron PF 4 MG/2 ML Vial ONE (11:37)
[2024-06-12 12:19] LABS: ALT (SGPT) 42 U/L (8-55); AST (SGOT) 17 U/L (5-34); Albumin 4.2 g/dL (3.5-5.0); Alkaline Phosphatase 235 U/L (40-110); Anion Gap 12 mmol/L (10-20); BUN (Urea Nitrogen) 20 mg/dL (8.9-20.6); Bilirubin, Total 0.3 mg/dL (0.2-1.2); Calc. Creatinine Clearance 0 mL/min (70-130); Calcium 9.3 mg/dL (7.8-10.44); Carbon Dioxide 23 mmol/L (22-29); Chloride 109 mmol/L (98-107); Estimated GFR 84; Globulin 2.9 g/dL (2.4-3.5); Glucose 81 mg/dL (70-105); Potassium 3.3 mmol/L (3.5-5.1); Protein, Total 7.1 g/dL (6.0-8.3); Sodium 141 mmol/L (136-145)
[2024-06-12 12:42] LABS: #Basophils Less than 0.03 10x3/uL (0.0-0.2); %Basophils 0.4 % (0.0-1.0); %Eosinophils 2.4 % (0.0-10.0); %Lymphocytes 33.4 % (21.0-51.0); %Monocytes 7.1 % (0.0-10.0); %Neutrophils 56.3 % (42.0-75.0); Hematocrit 37.7 % (42.0-52.0); Hemoglobin 12.6 g/dL (14.0-18.0); Mean Corpuscular HGB CONC 33.4 g/dL (32.0-36.0); Mean Corpuscular Hemoglobin 27.2 pg (27.0-31.0); Mean Corpuscular Volume 81.3 fL (78.0-98.0); Mean Platelet Volume 10.2 fL (7.4-10.4); Platelet Count 185 10x3/uL (130-400); RBC Distribution Width 18.5 % (11.5-14.5); Red Blood Cell (RBC) Count 4.64 mill/uL (4.70-6.10)
[2024-06-12] MEDS ORDERED: Ketorolac Tromethamine 30 MG (1 mL) VIAL ONE (13:04)
== END 2024-06-12 13:25 | disposition home or self-care (01) ==
LOC: ERS 09:41
DX: M54.50 Low back pain, unspecified (principal); I10 Essential (primary) hypertension; Z79.899 Other long term (current) drug therapy
CPT/HCPCS: 80053; 81001; 83605; 85025; J1885; J2272; J2405; 96374; 96375; 96376

== ENCOUNTER 2024-06-27 11:14 | Emergency (ER) | payer OTHER ==
[2024-06-27] MEDS ORDERED: Morphine 4 MG/ML VIAL ONE (17:03)
[2024-06-27] MEDS ORDERED: Ondansetron PF 4 MG/2 ML Vial ONE (17:03)
[2024-06-27] MEDS ORDERED: Ketorolac Tromethamine 30 MG (1 mL) VIAL ONE (17:50)
[2024-06-27] MEDS ORDERED: HYDROcodone/Acetaminophen 5/325 mg Tablet ONE (17:51)
== END 2024-06-27 12:30 | disposition left against medical advice (07) ==
LOC: ERS 11:14
DX: Z53.21 Procedure and treatment not carried out due to patient leaving prior to being seen by health care provider (principal)
CPT/HCPCS: J1885; J2272; J2405

== ENCOUNTER 2024-06-27 15:43 | Emergency (ER) | payer OTHER ==
[~2024-06-27 15:43] MED LIST changes: -Heparin 1,000 UNITS/ML VIAL ONE; +Iopamidol-370 76% 500 ML MDV (1 ML CHARGE) ONE
[2024-06-27] MEDS ORDERED: Morphine 4 MG/ML VIAL ONE (18:46)
== END 2024-06-27 18:12 | disposition home or self-care (01) ==
LOC: ERS 15:43
DX: S87.01XA Crushing injury of right knee, initial encounter (principal); E11.9 Type 2 diabetes mellitus without complications; I10 Essential (primary) hypertension; W20.8XXA Other cause of strike by thrown, projected or falling object, initial encounter
CPT/HCPCS: 73552; 73564; 73706; J1885; J2272; J2405; 96374; 96375; 96376

== ENCOUNTER 2024-06-28 06:29 | Inpatient (IN) | payer OTHER ==
[2024-06-28 09:03] LABS: #Basophils 0.03 10x3/uL (0.0-0.2); %Basophils 0.5 % (0.0-1.0); %Eosinophils 1.6 % (0.0-10.0); %Lymphocytes 15.7 % (21.0-51.0); %Monocytes 10.3 % (0.0-10.0); %Neutrophils 71.6 % (42.0-75.0); Hematocrit 37.1 % (42.0-52.0); Hemoglobin 12.1 g/dL (14.0-18.0); Mean Corpuscular HGB CONC 32.6 g/dL (32.0-36.0); Mean Corpuscular Hemoglobin 27.9 pg (27.0-31.0); Mean Corpuscular Volume 85.7 fL (78.0-98.0); Mean Platelet Volume 9.9 fL (7.4-10.4); Platelet Count 211 10x3/uL (130-400); RBC Distribution Width 16.1 % (11.5-14.5); Red Blood Cell (RBC) Count 4.33 mill/uL (4.70-6.10)
[2024-06-28] MEDS ORDERED: Morphine 4 MG/ML VIAL ONE (09:11)
[2024-06-28 09:19] LABS: Prothrombin Time 12.7 sec (12.0-14.7)
[2024-06-28 09:20] LABS: ALT (SGPT) 23 U/L (8-55); AST (SGOT) 29 U/L (5-34); Albumin 4.2 g/dL (3.5-5.0); Alkaline Phosphatase 153 U/L (40-110); Anion Gap 13 mmol/L (10-20); BUN (Urea Nitrogen) 16 mg/dL (8.9-20.6); Bilirubin, Total 0.7 mg/dL (0.2-1.2); CK (CPK) 347 U/L (30-200); Calc. Creatinine Clearance 0 mL/min (70-130); Carbon Dioxide 24 mmol/L (22-29); Chloride 104 mmol/L (98-107); Estimated GFR 78; Globulin 2.7 g/dL (2.4-3.5); Glucose 101 mg/dL (70-105); PTT 25.6 sec (22.9-36.1); Potassium 3.5 mmol/L (3.5-5.1); Protein, Total 6.9 g/dL (6.0-8.3); Sodium 137 mmol/L (136-145)
[2024-06-28] MEDS ORDERED: Ondansetron PF 4 MG/2 ML Vial ONE ×3 (11:33→19:52)
[2024-06-28] MEDS ORDERED: HYDROmorphone 0.5 MG/0.5 ML SYRINGE ONE ×3 (11:33→19:48)
[2024-06-28 11:55] LABS: Lactic Acid 0.93 mmol/L (0.5-2.2)
[2024-06-28] MEDS ORDERED: Ondansetron PF 4 MG/2 ML Vial SLOW IVP PRN (12:29)
[2024-06-28] MEDS ORDERED: Fentanyl 100 MCG/2 ML VIAL SLOW IVP PRN (12:38)
[2024-06-28] MEDS: Gabapentin 300 MG CAP PO SCH (14:14)
[2024-06-28] MEDS: Ketorolac Tromethamine 30 MG (1 mL) VIAL IVP PRN (14:15)
[2024-06-28] MEDS: fentaNYL 50 mcg/mL 1 mL Vial SLOW IVP PRN (15:31)
[2024-06-28 16:04] VITALS: BMI 27.1
[2024-06-28] MEDS ORDERED: Rocuronium Bromide 10 MG/ML (10ML VIAL) ONE (17:38)
[2024-06-28] MEDS ORDERED: PROPOFOL 20 ML ONE (17:38)
[2024-06-28] MEDS ORDERED: ePHEDrine Sulfate 50 MG/10 ML VIAL ONE (17:38)
[2024-06-28] MEDS ORDERED: Lidocaine 2% PF 5 ML VIAL ONE (17:38)
[2024-06-28] MEDS ORDERED: Fentanyl 250 MCG/5 ML VIAL ONE (17:38)
[2024-06-28] MEDS ORDERED: Clindamycin/D5W 900 MG in Premix 1 BAG IVPB SCH (17:45)
[2024-06-28] MEDS ORDERED: SUCCINYLCHOLINE/SOD CL,ISO/PF 200 MG/10 ML SYRINGE FS ONE (17:51)
[2024-06-28] MEDS ORDERED: TETANUS, DIPHTHERIA TOX,ADULT (TDVAX) 0.5 ML VIAL IM ONE (18:00)
[2024-06-28] MEDS ORDERED: Clindamycin/D5W 900 mg/50 ml Premix Bag ONE (18:06)
[2024-06-28] MEDS ORDERED: Naloxone HCl 0.4 mg/ml Vial IV PRN (18:30)
[2024-06-28] MEDS ORDERED: diphenhydrAMINE 50 MG/ML VIAL IM PRN (18:30)
[2024-06-28] MEDS ORDERED: diphenhydrAMINE 25 MG CAP PO PRN (18:30)
[2024-06-28] MEDS ORDERED: HYDROmorphone/PF 10 MG in Sodium Chloride 0.9% 99 ML IV PRN (18:30)
[2024-06-28] MEDS ORDERED: Ondansetron HCl/PF 4 MG/2 ML Vial IVP PRN (18:30)
[2024-06-28] MEDS ORDERED: Communication Order-Pharmacy FS SCH (18:30)
[2024-06-28] MEDS ORDERED: SUGAMMADEX SODIUM 200 MG/2 ML VIAL ONE (18:39)
[2024-06-28] MEDS ORDERED: HYDROmorphone/PF 10 MG in Sodium Chloride 0.9% 99 ML IVPB PRN (18:45)
[2024-06-28] MEDS ORDERED: fentaNYL 50 mcg/mL 1 mL Vial ONE (19:18)
[2024-06-28] MEDS: Clindamycin 150 MG CAP PO SCH (22:26)
[2024-06-29] MEDS: TETANUS AND DIPHTHERIA TOX/PF 0.5 ML DISP.SYRIN IM SCH (00:51)
[2024-06-29] MEDS: Ondansetron PF 4 MG/2 ML Vial IVP PRN (01:04)
[2024-06-29 05:26] LABS: #Basophils 0.04 10x3/uL (0.0-0.2); %Basophils 0.6 % (0.0-1.0); %Eosinophils 1.7 % (0.0-10.0); %Lymphocytes 18.9 % (21.0-51.0); %Monocytes 11.5 % (0.0-10.0); Hemoglobin 10.7 g/dL (14.0-18.0); Mean Corpuscular HGB CONC 32.4 g/dL (32.0-36.0); Mean Corpuscular Hemoglobin 27.6 pg (27.0-31.0); Mean Corpuscular Volume 85.3 fL (78.0-98.0); Mean Platelet Volume 10.5 fL (7.4-10.4); Platelet Count 208 10x3/uL (130-400); RBC Distribution Width 16.2 % (11.5-14.5); Red Blood Cell (RBC) Count 3.87 mill/uL (4.70-6.10)
[2024-06-29] MEDS: Promethazine HCl 12.5 MG in Sodium Chloride 0.9% 50 ML IVPB SCH (06:02)
[2024-06-29] MEDS: Fentanyl CADD 100 ML IVPB SCH (09:45)
[2024-06-29 12:48] VITALS: BMI 27.1
[2024-06-29] MEDS: Promethazine HCl 12.5 MG in Sodium Chloride 0.9% 50 ML IVPB PRN (17:00)
[2024-06-29] MEDS: Sterile Water 10 ML VIAL FS SCH (23:39)
[2024-06-29] MEDS: Ziprasidone 20 MG VIAL IM SCH (23:39)
[2024-06-30] MEDS: DULoxetine 30 MG CAP PO SCH ×2 (00:18→09:22)
[2024-06-30] MEDS: Temazepam 15 MG CAP PO PRN (00:19)
[2024-06-30] MEDS: ALPRAZolam 1 MG TAB PO PRN (00:19)
[2024-06-30] MEDS: Ziprasidone 20 MG VIAL ONE (02:25)
[2024-06-30 05:56] LABS: #Basophils Less than 0.03 10x3/uL (0.0-0.2); %Basophils 0.5 % (0.0-1.0); %Eosinophils 2.5 % (0.0-10.0); %Monocytes 15.2 % (0.0-10.0); %Neutrophils 60.3 % (42.0-75.0); Hematocrit 27.9 % (42.0-52.0); Hemoglobin 9.2 g/dL (14.0-18.0); Mean Corpuscular Hemoglobin 27.7 pg (27.0-31.0); Mean Platelet Volume 10.6 fL (7.4-10.4); Platelet Count 154 10x3/uL (130-400); RBC Distribution Width 15.5 % (11.5-14.5); Red Blood Cell (RBC) Count 3.32 mill/uL (4.70-6.10)
[2024-06-30] MEDS ORDERED: ALPRAZolam 1 MG TAB PO PRN (08:24)
[2024-06-30] MEDS ORDERED: Non-Formulary Item 1 EACH (Albuterol Sulfate [Albuterol Sulfate Neb] 0.63 MG/3 ML Vial.Ne NEB PRN (10:10)
[2024-06-30] MEDS ORDERED: Non-Formulary Item 1 EACH (Temazepam [Temazepam] 30 MG Capsule) PO PRN (10:10)
[2024-06-30] MEDS ORDERED: Albuterol 1.25 MG (3 mL) NEB NEB PRN (10:15)
[2024-06-30] MEDS: HYDROcodone/Acetaminophen 10/325 mg Tablet PO PRN (12:02)
[2024-06-30] MEDS: Ipratropium/Albuterol 3 ML NEB NEB SCH (14:10)
[2024-06-30] MEDS: fentaNYL 50 mcg/mL 1 mL Vial SLOW IVP PRN (15:25)
[2024-06-30] MEDS: Clindamycin/D5W 300 MG/50 ML BAG IVPB SCH (16:36)
[2024-06-30] MEDS: Mometasone 100 MCG/PUFF (1 INHALER) INH SCH (19:01)
[2024-06-30] MEDS: Amlodipine 10 MG TAB PO SCH (21:12)
[2024-06-30] MEDS: Pantoprazole DR 40 MG TAB PO SCH (21:12)
[2024-06-30] MEDS: Atorvastatin Calcium 10 MG TAB PO SCH (21:12)
[2024-07-01] MEDS: Levothyroxine 150 MCG TAB PO SCH (05:57)
[2024-07-01] MEDS: Amlodipine 5 MG TAB PO SCH (09:18)
[2024-07-01] MEDS ORDERED: Ipratropium/Albuterol 3 ML NEB NEB PRN (18:20)
[2024-07-01] MEDS: diphenhydrAMINE 50 MG/ML VIAL IVP PRN (19:43)
[2024-07-02 03:56] LABS: #Basophils Less than 0.03 10x3/uL (0.0-0.2); %Basophils 0.6 % (0.0-1.0); %Eosinophils 4.2 % (0.0-10.0); %Lymphocytes 17.8 % (21.0-51.0); %Monocytes 13.6 % (0.0-10.0); %Neutrophils 62.7 % (42.0-75.0); Hematocrit 26.4 % (42.0-52.0); Hemoglobin 8.5 g/dL (14.0-18.0); Mean Corpuscular HGB CONC 32.2 g/dL (32.0-36.0); Mean Corpuscular Hemoglobin 28.3 pg (27.0-31.0); Mean Platelet Volume 10.2 fL (7.4-10.4); Platelet Count 188 10x3/uL (130-400); RBC Distribution Width 15.9 % (11.5-14.5)
[2024-07-02 04:39] LABS: ALT (SGPT) 70 U/L (8-55); AST (SGOT) 61 U/L (5-34); Albumin 3.2 g/dL (3.5-5.0); Alkaline Phosphatase 158 U/L (40-110); Anion Gap 15 mmol/L (10-20); BUN (Urea Nitrogen) 14 mg/dL (8.9-20.6); Bilirubin, Total 1.3 mg/dL (0.2-1.2); CK (CPK) 438 U/L (30-200); Calc. Creatinine Clearance 141 mL/min (70-130); Calcium 8.8 mg/dL (7.8-10.44); Carbon Dioxide 28 mmol/L (22-29); Chloride 101 mmol/L (98-107); Estimated GFR 109; Glucose 75 mg/dL (70-105); Magnesium 1.9 mg/dL (1.6-2.6); Protein, Total 6.2 g/dL (6.0-8.3); Sodium 140 mmol/L (136-145)
[2024-07-02] MEDS: HYDROcodone/Acetaminophen 10/325 mg Tablet PO PRN (13:44)
[2024-07-02] MEDS: Promethazine 25 MG TAB PO PRN (18:30)
[2024-07-03] MEDS ORDERED: Lidocaine 1% PF 5 ML VIAL ONE ×2 (07:27→10:14)
[2024-07-03] MEDS ORDERED: fentaNYL PF 100 MCG/2 ML SYRINGE ONE (07:27)
[2024-07-03] MEDS ORDERED: Midazolam HCl 2 mg/2 ml Vial ONE (07:27)
[2024-07-03] MEDS ORDERED: Dexamethasone 4 mg/ml Vial ONE (07:27)
[2024-07-03] MEDS ORDERED: Ondansetron PF 4 MG/2 ML Vial ONE (07:27)
[2024-07-03] MEDS ORDERED: PROPOFOL 20 ML ONE (07:28)
[2024-07-03] MEDS ORDERED: Rocuronium Bromide 10 MG/ML (10ML VIAL) ONE (07:56)
[2024-07-03] MEDS ORDERED: Ondansetron HCl/PF 4 MG/2 ML Vial IVP PRN (08:30)
[2024-07-03] MEDS ORDERED: SUGAMMADEX SODIUM 200 MG/2 ML VIAL ONE (08:52)
[2024-07-03] MEDS ORDERED: Meperidine HCl/PF 25 MG (1 mL) VIAL ONE (09:32)
[2024-07-03] MEDS ORDERED: HYDROmorphone 0.5 MG/0.5 ML SYRINGE ONE ×2 (09:44→10:14)
[2024-07-03] MEDS ORDERED: fentaNYL 50 mcg/mL 1 mL Vial ONE (09:44)
[2024-07-03] MEDS: Clindamycin 150 MG CAP PO SCH (17:12)
[2024-07-03] MEDS: traMADol HCl 50 MG TAB PO SCH (17:17)
[2024-07-03] MEDS: Temazepam 15 MG CAP PO PRN (20:12)
[2024-07-04] MEDS: Morphine 4 MG/ML VIAL SLOW IVP SCH (01:12)
[2024-07-04] MEDS: Polyethylene Glycol 3350 17 GM Packet PO SCH (08:12)
[2024-07-04] MEDS: Bisacodyl 5 MG TAB PO SCH (08:13)
[2024-07-04] MEDS: Promethazine 25 MG TAB PO PRN (08:48)
[2024-07-04 11:09] VITALS: TEMP 98.5
[2024-07-04] MEDS: tiZANidine HCl 4 MG TAB PO SCH (11:15)
[2024-07-04 15:47] VITALS: BP 101/60
[2024-07-04] MEDS ORDERED: CeleCOXIB 100 MG CAP PO SCH (21:00)
== END 2024-07-04 16:26 | disposition home or self-care (01) | DRG 908 ==
LOC: ERS 06:29 → SURG A 13:50 → OBSVTOIN 06-29 13:04
PROVIDERS: ADMIT Orthopaedic Surgery; ATTEND Orthopaedic Surgery
PROC: 0KNS0ZZ Release Right Lower Leg Muscle, Open Approach (ICD-10-PCS; principal; 2024-06-29)
PROC: 0YQ Anatomical Regions, Lower Extremities, Repair (ICD-10-PCS; 2024-07-03)
DX: S87.81XA Crushing injury of right lower leg, initial encounter (principal); K50.90 Crohn's disease, unspecified, without complications; T79.A21A Traumatic compartment syndrome of right lower extremity, initial encounter; G43.909 Migraine, unspecified, not intractable, without status migrainosus; G89.29 Other chronic pain; E03.9 Hypothyroidism, unspecified; N40.0 Benign prostatic hyperplasia without lower urinary tract symptoms; I10 Essential (primary) hypertension; J44.9 Chronic obstructive pulmonary disease, unspecified; F41.9 Anxiety disorder, unspecified; F32.A Depression, unspecified; D64.9 Anemia, unspecified; Z88.0 Allergy status to penicillin; Z88.8 Allergy status to other drugs, medicaments and biological substances; Z90.49 Acquired absence of other specified parts of digestive tract; W20.8XXA Other cause of strike by thrown, projected or falling object, initial encounter; Y93.89 Activity, other specified; Y92.89 Other specified places as the place of occurrence of the external cause; Z88.5 Allergy status to narcotic agent; E11.9 Type 2 diabetes mellitus without complications
CPT/HCPCS: 36415; 80053; 82550; 83605; 83735; 85025; 85610; 85730; 90714; 94640; 96374; 96375; 96376; 97139; G0378; J1100; J1200; J1885; J2175; J2250; J2272; J2405; J2550; J2704; J3010; J3486; J3490; J7620; Q0169; Q9967

== ENCOUNTER → 2024-07-07 | Emergency (ER) | payer OTHER ==
[~2024-07-07] MED LIST changes: -Iopamidol-370 76% 500 ML MDV (1 ML CHARGE) ONE; +Ketorolac Tromethamine 30 MG (1 mL) VIAL ONE; +Morphine 4 MG/ML VIAL ONE
[2024-07-07 01:40] LABS: #Basophils Less than 0.03 10x3/uL (0.0-0.2); %Basophils 0.4 % (0.0-1.0); %Eosinophils 2.8 % (0.0-10.0); %Lymphocytes 24.2 % (21.0-51.0); %Monocytes 6.3 % (0.0-10.0); %Neutrophils 65.7 % (42.0-75.0); Hematocrit 29.7 % (42.0-52.0); Hemoglobin 9.6 g/dL (14.0-18.0); Mean Corpuscular HGB CONC 32.3 g/dL (32.0-36.0); Mean Corpuscular Hemoglobin 27.7 pg (27.0-31.0); Mean Corpuscular Volume 85.6 fL (78.0-98.0); Mean Platelet Volume 9.6 fL (7.4-10.4); Platelet Count 245 10x3/uL (130-400); Red Blood Cell (RBC) Count 3.47 mill/uL (4.70-6.10)
[2024-07-07 01:55] LABS: ALT (SGPT) 25 U/L (8-55); AST (SGOT) 18 U/L (5-34); Albumin 3.6 g/dL (3.5-5.0); Alkaline Phosphatase 123 U/L (40-110); Anion Gap 12 mmol/L (10-20); BUN (Urea Nitrogen) 14 mg/dL (8.9-20.6); CK (CPK) 72 U/L (30-200); Calc. Creatinine Clearance 0 mL/min (70-130); Calcium 8.9 mg/dL (7.8-10.44); Carbon Dioxide 33 mmol/L (22-29); Chloride 99 mmol/L (98-107); Estimated GFR 96; Glucose 79 mg/dL (70-105); Protein, Total 6.6 g/dL (6.0-8.3); Sodium 141 mmol/L (136-145)
== END ==
LOC: ERS 00:29
DX: M96.89 Other intraoperative and postprocedural complications and disorders of the musculoskeletal system (principal); S80.11XA Contusion of right lower leg, initial encounter; I10 Essential (primary) hypertension
CPT/HCPCS: 80053; 82550; 83605; 85025; 93971; 96374; 96375; 96376; 99284; J1885; J2272

== ENCOUNTER 2024-07-30 14:46 | Emergency (ER) | payer OTHER ==
[~2024-07-30 14:46] MED LIST changes: +Iopamidol-370 76% 500 ML MDV (1 ML CHARGE) ONE; -Ketorolac Tromethamine 30 MG (1 mL) VIAL ONE; -Morphine 4 MG/ML VIAL ONE
[2024-07-30 16:53] LABS: #Basophils Less than 0.03 10x3/uL (0.0-0.2); %Basophils 0.4 % (0.0-1.0); %Eosinophils 1.1 % (0.0-10.0); %Lymphocytes 25.7 % (21.0-51.0); %Monocytes 8.1 % (0.0-10.0); %Neutrophils 64.5 % (42.0-75.0); Hematocrit 35.3 % (42.0-52.0); Hemoglobin 11.6 g/dL (14.0-18.0); Mean Corpuscular HGB CONC 32.9 g/dL (32.0-36.0); Mean Corpuscular Hemoglobin 27.4 pg (27.0-31.0); Mean Corpuscular Volume 83.3 fL (78.0-98.0); Mean Platelet Volume 10.7 fL (7.4-10.4); Platelet Count 196 10x3/uL (130-400); RBC Distribution Width 13.7 % (11.5-14.5); Red Blood Cell (RBC) Count 4.24 mill/uL (4.70-6.10)
[2024-07-30 17:10] LABS: ALT (SGPT) 11 U/L (8-55); AST (SGOT) 13 U/L (5-34); Alkaline Phosphatase 109 U/L (40-110); Anion Gap 13 mmol/L (10-20); BUN (Urea Nitrogen) 11 mg/dL (8.9-20.6); Bilirubin, Total 0.4 mg/dL (0.2-1.2); Calc. Creatinine Clearance 0 mL/min (70-130); Calcium 9.3 mg/dL (7.8-10.44); Carbon Dioxide 22 mmol/L (22-29); Chloride 109 mmol/L (98-107); Estimated GFR 111; Globulin 2.9 g/dL (2.4-3.5); Glucose 90 mg/dL (70-105); Potassium 3.4 mmol/L (3.5-5.1); Protein, Total 6.9 g/dL (6.0-8.3); Sodium 141 mmol/L (136-145)
[2024-07-30] MEDS ORDERED: Ketorolac Tromethamine 30 MG (1 mL) VIAL ONE (18:20)
[2024-07-30] MEDS ORDERED: Morphine 4 MG/ML VIAL ONE (20:34)
== END 2024-07-30 20:29 | disposition home or self-care (01) ==
LOC: ERS 14:46
DX: R60.0 Localized edema (principal); I10 Essential (primary) hypertension; J44.9 Chronic obstructive pulmonary disease, unspecified; Z55.0 Illiteracy and low-level literacy; M79.661 Pain in right lower leg; E06.3 Autoimmune thyroiditis
CPT/HCPCS: 73701; 80053; 85025; 86141; 93005; 93971; 96372; 96374; 99283; 99284; J1885; J2272; Q9967; 36415; J2270

== ENCOUNTER 2024-08-02 01:46 | Emergency (ER) | payer OTHER ==
[2024-08-02 02:13] LABS: #Basophils 0.04 10x3/uL (0.0-0.2); %Basophils 0.8 % (0.0-1.0); %Eosinophils 2.4 % (0.0-10.0); %Lymphocytes 28.9 % (21.0-51.0); %Monocytes 7.8 % (0.0-10.0); %Neutrophils 59.7 % (42.0-75.0); Hematocrit 38.6 % (42.0-52.0); Hemoglobin 12.3 g/dL (14.0-18.0); Mean Corpuscular HGB CONC 31.9 g/dL (32.0-36.0); Mean Corpuscular Hemoglobin 26.9 pg (27.0-31.0); Mean Corpuscular Volume 84.5 fL (78.0-98.0); Mean Platelet Volume 10.6 fL (7.4-10.4); Platelet Count 183 10x3/uL (130-400); RBC Distribution Width 13.5 % (11.5-14.5); Red Blood Cell (RBC) Count 4.57 mill/uL (4.70-6.10)
[2024-08-02] MEDS ORDERED: Nitroglycerin 0.4 MG TAB 1 EACH ONE (02:44)
[2024-08-02 03:01] LABS: ALT (SGPT) 20 U/L (8-55); AST (SGOT) 22 U/L (5-34); Alkaline Phosphatase 122 U/L (40-110); Anion Gap 17 mmol/L (10-20); BUN (Urea Nitrogen) 10 mg/dL (8.9-20.6); Bilirubin, Total 0.3 mg/dL (0.2-1.2); Calc. Creatinine Clearance 0 mL/min (70-130); Calcium 8.9 mg/dL (7.8-10.44); Carbon Dioxide 23 mmol/L (22-29); Chloride 106 mmol/L (98-107); Estimated GFR 111; Globulin 2.9 g/dL (2.4-3.5); Glucose 93 mg/dL (70-105); Potassium 3.5 mmol/L (3.5-5.1); Protein, Total 6.9 g/dL (6.0-8.3); Sodium 142 mmol/L (136-145)
[2024-08-02 03:07] LABS: Troponin I Less than 0.010 ng/mL (< 0.028)
[2024-08-02] MEDS ORDERED: Acetaminophen 500 MG TAB ONE (03:07)
[2024-08-02] MEDS ORDERED: Ketorolac Tromethamine 30 MG (1 mL) VIAL ONE (03:22)
[2024-08-02] MEDS ORDERED: Nitroglycerin 2% Ointment 1 INCH/1 GM Packet ONE (04:19)
[2024-08-02 04:57] LABS: Troponin I Less than 0.010 ng/mL (< 0.028)
[2024-08-02] MEDS ORDERED: Iopamidol 370 76% 100 ML VIAL ONE (13:38)
== END 2024-08-02 06:35 | disposition home or self-care (01) ==
LOC: ERS 01:46
DX: R07.89 Other chest pain (principal); E03.9 Hypothyroidism, unspecified; J44.9 Chronic obstructive pulmonary disease, unspecified; D50.9 Iron deficiency anemia, unspecified; I48.91 Unspecified atrial fibrillation; I10 Essential (primary) hypertension
CPT/HCPCS: 71045; 71275; 80053; 83880; 84484 ×2; 85025; 85379; 93005; 94760; J1885; 36415; 96374; Q9967

== ENCOUNTER 2024-08-06 10:39 | Emergency (ER) | payer OTHER ==
[2024-08-06] MEDS ORDERED: Iopamidol-370 76% 500 ML MDV (1 ML CHARGE) ONE (11:17)
[2024-08-06] MEDS ORDERED: Acetaminophen 500 MG TAB ONE (11:20)
[2024-08-06 11:27] LABS: #Basophils 0.03 10x3/uL (0.0-0.2); %Basophils 0.6 % (0.0-1.0); %Eosinophils 2.1 % (0.0-10.0); %Lymphocytes 29.3 % (21.0-51.0); %Monocytes 8.9 % (0.0-10.0); %Neutrophils 58.9 % (42.0-75.0); Hemoglobin 11.8 g/dL (14.0-18.0); Mean Corpuscular HGB CONC 32.8 g/dL (32.0-36.0); Mean Corpuscular Hemoglobin 26.5 pg (27.0-31.0); Mean Corpuscular Volume 80.7 fL (78.0-98.0); Mean Platelet Volume 10.6 fL (7.4-10.4); Platelet Count 214 10x3/uL (130-400); RBC Distribution Width 13.7 % (11.5-14.5); Red Blood Cell (RBC) Count 4.46 mill/uL (4.70-6.10)
[2024-08-06 11:45] LABS: ALT (SGPT) 25 U/L (8-55); AST (SGOT) 23 U/L (5-34); Albumin 4.1 g/dL (3.5-5.0); Alkaline Phosphatase 115 U/L (40-110); Anion Gap 16 mmol/L (10-20); BUN (Urea Nitrogen) 15 mg/dL (8.9-20.6); Bilirubin, Total 0.8 mg/dL (0.2-1.2); Calc. Creatinine Clearance 0 mL/min (70-130); Calcium 8.9 mg/dL (7.8-10.44); Carbon Dioxide 23 mmol/L (22-29); Chloride 104 mmol/L (98-107); Estimated GFR 72; Globulin 2.8 g/dL (2.4-3.5); Glucose 109 mg/dL (70-105); Magnesium 1.8 mg/dL (1.6-2.6); Potassium 3.4 mmol/L (3.5-5.1); Protein, Total 6.9 g/dL (6.0-8.3); Sodium 140 mmol/L (136-145)
[2024-08-06 13:18] LABS: Troponin I Less than 0.010 ng/mL (< 0.028)
[2024-08-06] MEDS ORDERED: Morphine 4 MG/ML VIAL ONE (13:25)
[2024-08-06] MEDS ORDERED: Aspirin Chewable 81 MG TAB ONE (13:26)
[2024-08-06] MEDS ORDERED: methylPREDNISolone Sod Succ/PF 125 MG/2 ML VIAL ONE (13:26)
[2024-08-06] MEDS ORDERED: Potassium Chloride 20 MEQ TAB ONE (13:26)
[2024-08-06] MEDS ORDERED: Ipratropium/Albuterol 3 ML NEB ONE ×2 (13:58→15:33)
[2024-08-06 15:01] LABS: Troponin I Less than 0.010 ng/mL (< 0.028)
== END 2024-08-06 16:56 | disposition home or self-care (01) ==
LOC: ERS 10:39
DX: R06.00 Dyspnea, unspecified (principal); I10 Essential (primary) hypertension; E03.9 Hypothyroidism, unspecified; Z79.899 Other long term (current) drug therapy; Z79.890 Hormone replacement therapy
CPT/HCPCS: 71045; 71275; 83735; 84439; 84484 ×2; 85379; 93005; 94760; 96374; 96375; 99285; J2272; J2919; Q9967; 36415; 80053; 84443; 85025; J7620

== ENCOUNTER → 2024-08-26 | Day surgery (SDC) | payer OTHER, MEDICAID ==
[~2024-08-26] MED LIST changes: -Iopamidol-370 76% 500 ML MDV (1 ML CHARGE) ONE; +Lidocaine 1% PF 5 ML VIAL ONE; +Sodium Bicarbonate 2.5 MEQ/5 ML SDV ONE
== END ==
LOC: SPEC 06:59
PROVIDERS: ATTEND Internal Medicine Hematology & Oncology
PROC: 05HY33Z Insertion of Infusion Device into Upper Vein, Percutaneous Approach (ICD-10-PCS; principal; 2024-08-26)
DX: D50.0 Iron deficiency anemia secondary to blood loss (chronic) (principal); Z88.0 Allergy status to penicillin
CPT/HCPCS: 36573; C1751

== ENCOUNTER 2024-08-27 04:44 | Emergency (ER) | payer OTHER, MEDICAID ==
[2024-08-27] MEDS ORDERED: HYDROcodone/Acetaminophen 10/325 mg Tablet ONE (06:09)
== END 2024-08-27 06:30 | disposition home or self-care (01) ==
LOC: ERS 04:44
DX: M54.50 Low back pain, unspecified (principal); G89.29 Other chronic pain; J44.9 Chronic obstructive pulmonary disease, unspecified; I10 Essential (primary) hypertension; I48.91 Unspecified atrial fibrillation; E86.0 Dehydration; Z79.890 Hormone replacement therapy; Z79.899 Other long term (current) drug therapy

== ENCOUNTER 2024-08-27 08:25 | Emergency (ER) | payer OTHER, MEDICAID ==
[2024-08-27] MEDS ORDERED: Morphine 4 MG/ML VIAL ONE (08:49)
[2024-08-27] MEDS ORDERED: Gabapentin 300 MG CAP ONE (08:52)
== END 2024-08-27 09:52 | disposition home or self-care (01) ==
LOC: ERS 08:25
DX: M54.14 Radiculopathy, thoracic region (principal); M54.50 Low back pain, unspecified; G89.29 Other chronic pain; J44.9 Chronic obstructive pulmonary disease, unspecified; I10 Essential (primary) hypertension; G43.909 Migraine, unspecified, not intractable, without status migrainosus; I48.91 Unspecified atrial fibrillation; E03.9 Hypothyroidism, unspecified; E06.3 Autoimmune thyroiditis; Z55.6 Problems related to health literacy; K50.90 Crohn's disease, unspecified, without complications
CPT/HCPCS: J2270

== ENCOUNTER 2024-08-27 19:40 | Emergency (ER) | payer OTHER, MEDICAID ==
[2024-08-27 20:44] LABS: Bacteria/HPF None Seen HPF (None Seen); Bilirubin Negative (Negative); Blood, Urine 2+ (Negative); CAUTI Indications for Culture Pelvic or flank pain; Clarity Clear (Clear); Glucose, Urine (Dipstick) Normal (Negative); Ketone, Urine Trace mg/dL (Negative); Leukocyte Negative Leu/uL (Negative); Nitrite Negative (Negative); Protein, Urine (Dipstick) 50 mg/dL (Neg-Trace); RBC/HPF 0-3 HPF (0-3); Specific Gravity, Urine 1.035 (1.002-1.036); Squamous Epithelial 0-3 HPF (0-3); WBC/HPF 0-3 HPF (0-3)
[2024-08-27 20:46] LABS: Urine Culture Reflex No No
[2024-08-27 21:49] LABS: #Basophils 0.05 10x3/uL (0.0-0.2); %Basophils 0.8 % (0.0-1.0); %Eosinophils 1.4 % (0.0-10.0); %Lymphocytes 20.3 % (21.0-51.0); %Monocytes 9.9 % (0.0-10.0); %Neutrophils 67.4 % (42.0-75.0); Hematocrit 37.8 % (42.0-52.0); Mean Corpuscular HGB CONC 31.7 g/dL (32.0-36.0); Mean Corpuscular Hemoglobin 25.8 pg (27.0-31.0); Mean Corpuscular Volume 81.3 fL (78.0-98.0); Mean Platelet Volume 10.4 fL (7.4-10.4); Platelet Count 245 10x3/uL (130-400); Red Blood Cell (RBC) Count 4.65 mill/uL (4.70-6.10)
[2024-08-27 22:22] LABS: ALT (SGPT) 44 U/L (8-55); AST (SGOT) 27 U/L (5-34); Albumin 4.4 g/dL (3.5-5.0); Alkaline Phosphatase 161 U/L (40-110); Anion Gap 19 mmol/L (10-20); BUN (Urea Nitrogen) 16 mg/dL (8.9-20.6); Bilirubin, Total 0.4 mg/dL (0.2-1.2); Calc. Creatinine Clearance 0 mL/min (70-130); Calcium 9.5 mg/dL (7.8-10.44); Carbon Dioxide 20 mmol/L (22-29); Chloride 108 mmol/L (98-107); Estimated GFR 59; Globulin 2.9 g/dL (2.4-3.5); Glucose 100 mg/dL (70-105); Lipase 19 U/L (8-78); Potassium 3.5 mmol/L (3.5-5.1); Protein, Total 7.3 g/dL (6.0-8.3); Sodium 143 mmol/L (136-145)
== END 2024-08-27 22:52 | disposition home or self-care (01) ==
LOC: ERS 19:40
DX: K92.1 Melena (principal); J44.9 Chronic obstructive pulmonary disease, unspecified; I10 Essential (primary) hypertension; E03.9 Hypothyroidism, unspecified; I48.91 Unspecified atrial fibrillation; G43.909 Migraine, unspecified, not intractable, without status migrainosus; K50.90 Crohn's disease, unspecified, without complications; E06.3 Autoimmune thyroiditis; R73.03 Prediabetes; Z79.890 Hormone replacement therapy; Z79.899 Other long term (current) drug therapy
CPT/HCPCS: 36415; 80053; 81001; 83690; 85025; 99283; J2270

== ENCOUNTER → 2024-08-29 | Day surgery (SDC) | payer OTHER, MEDICAID | LOC: SPEC 12:39 | PROVIDERS: ATTEND Internal Medicine Hematology & Oncology | PROC: 05HY33Z Insertion of Infusion Device into Upper Vein, Percutaneous Approach (ICD-10-PCS; principal; 2024-08-29) | DX: D50.0 Iron deficiency anemia secondary to blood loss (chronic) (principal); Z88.0 Allergy status to penicillin | CPT/HCPCS: 36573; C1751 ==

== ENCOUNTER 2024-09-13 08:14 | Emergency (ER) | payer OTHER, MEDICAID ==
[2024-09-13] MEDS ORDERED: Ondansetron PF 4 MG/2 ML Vial ONE (09:02)
[2024-09-13] MEDS ORDERED: methylPREDNISolone Sod Succ/PF 125 MG/2 ML VIAL ONE (09:03)
[2024-09-13 09:36] LABS: #Basophils 0.03 10x3/uL (0.0-0.2); %Basophils 0.6 % (0.0-1.0); %Eosinophils 1.4 % (0.0-10.0); %Lymphocytes 30.4 % (21.0-51.0); %Monocytes 10.7 % (0.0-10.0); %Neutrophils 56.5 % (42.0-75.0); Hematocrit 39.9 % (42.0-52.0); Hemoglobin 12.9 g/dL (14.0-18.0); Mean Corpuscular HGB CONC 32.3 g/dL (32.0-36.0); Mean Corpuscular Hemoglobin 27.5 pg (27.0-31.0); Mean Corpuscular Volume 85.1 fL (78.0-98.0); Mean Platelet Volume 10.9 fL (7.4-10.4); Platelet Count 259 10x3/uL (130-400); RBC Distribution Width 18.3 % (11.5-14.5); Red Blood Cell (RBC) Count 4.69 mill/uL (4.70-6.10)
[2024-09-13 10:00] LABS: Chloride 106 mmol/L (98-107); Potassium 3.8 mmol/L (3.5-5.1); Sodium 143 mmol/L (136-145)
[2024-09-13 10:02] LABS: ALT (SGPT) 17 U/L (Less than 45); AST (SGOT) 24 U/L (11-34); Alkaline Phosphatase 111 U/L (40-110); Anion Gap 15 mmol/L (10-20); BUN (Urea Nitrogen) 20 mg/dL (8.9-20.6); Bilirubin, Total 0.6 mg/dL (0.3-1.2); Calc. Creatinine Clearance 0 mL/min (70-130); Calcium 8.9 mg/dL (7.8-10.44); Carbon Dioxide 25 mmol/L (22-29); Estimated GFR 87; Glucose 143 mg/dL (70-105)
== END 2024-09-13 10:12 | disposition home or self-care (01) ==
LOC: ERS 08:14
DX: K62.5 Hemorrhage of anus and rectum (principal); R10.84 Generalized abdominal pain; I10 Essential (primary) hypertension; I48.91 Unspecified atrial fibrillation; J44.9 Chronic obstructive pulmonary disease, unspecified
CPT/HCPCS: 80053; 85025; J2405; J2919; 96374; 96375

== ENCOUNTER 2024-09-22 06:01 | Inpatient (IN) | payer OTHER, MEDICAID ==
[2024-09-22 06:57] LABS: #Basophils Less than 0.03 10x3/uL (0.0-0.2); %Basophils 0.4 % (0.0-1.0); %Eosinophils 2.1 % (0.0-10.0); %Lymphocytes 30.9 % (21.0-51.0); %Neutrophils 50.2 % (42.0-75.0); Hematocrit 27.3 % (42.0-52.0); Hemoglobin 9.1 g/dL (14.0-18.0); Mean Corpuscular HGB CONC 33.3 g/dL (32.0-36.0); Mean Platelet Volume 10.9 fL (7.4-10.4); Platelet Count 189 10x3/uL (130-400); RBC Distribution Width 16.7 % (11.5-14.5); Red Blood Cell (RBC) Count 3.25 mill/uL (4.70-6.10)
[2024-09-22] MEDS ORDERED: Morphine 4 MG/ML VIAL ONE (06:58)
[2024-09-22 07:02] LABS: INR-International Normal Ratio 1.1; PTT 29.9 sec (22.9-36.1); Prothrombin Time 14.3 sec (12.0-14.7)
[2024-09-22 07:17] LABS: Troponin I Less than 0.010 ng/mL (< 0.028)
[2024-09-22] MEDS ORDERED: Ondansetron PF 4 MG/2 ML Vial ONE (07:19)
[2024-09-22] MEDS ORDERED: Pantoprazole 40 MG VIAL ONE ×3 (07:20→13:53)
[2024-09-22] MEDS ORDERED: Sodium Chloride 0.9% 100 ML ONE ×2 (07:21→13:53)
[2024-09-22 07:48] LABS: Albumin 3.3 g/dL (3.1-4.5); Calcium 8.6 mg/dL (7.8-10.44); Chloride 100 mmol/L (98-107); Potassium 3.5 mmol/L (3.5-5.1); Sodium 139 mmol/L (136-145)
[2024-09-22 07:49] LABS: Globulin 2.7 g/dL (2.4-3.5); Glucose 83 mg/dL (70-105)
[2024-09-22 07:50] LABS: Anion Gap 18 mmol/L (10-20); Carbon Dioxide 25 mmol/L (22-29)
[2024-09-22 07:52] LABS: Alkaline Phosphatase 98 U/L (40-110); Bilirubin, Total 0.4 mg/dL (0.3-1.2)
[2024-09-22 07:53] LABS: BUN (Urea Nitrogen) 14 mg/dL (8.9-20.6); Lipase 15 U/L (8-78)
[2024-09-22 07:54] LABS: Magnesium 2.1 mg/dL (1.6-2.6)
[2024-09-22 07:55] LABS: ALT (SGPT) 28 U/L (Less than 45); AST (SGOT) 24 U/L (11-34)
[2024-09-22] MEDS ORDERED: Dicyclomine 20 MG/2 ML VIAL ONE (08:21)
[2024-09-22 08:30] LABS: Calc. Creatinine Clearance 0 mL/min (70-130); Estimated GFR 29
[2024-09-22] MEDS ORDERED: Octreotide Acetate 500 MCG/ML VIAL ONE ×2 (09:45→10:45)
[2024-09-22] MEDS ORDERED: Octreotide Acetate 1,250 MCG in Sodium Chloride 0.9% 250 ML 250 ML IVPB SCH (10:45)
[2024-09-22] MEDS ORDERED: Sodium Chloride 0.9% 250 ML BAG (BAXTER) ONE (10:45)
[2024-09-22] MEDS ORDERED: Octreotide Acetate 1,000 mcg/ml MDV ONE (10:45)
[2024-09-22] MEDS ORDERED: Metoclopramide HCl 10 MG (2 mL) VIAL IVP ONE (13:03)
[2024-09-22] MEDS ORDERED: Iopamidol 370 76% 100 ML VIAL ONE (13:50)
[2024-09-22 14:12] LABS: Hemoglobin 9.4 g/dL (14.0-18.0)
[2024-09-22] MEDS ORDERED: PROPOFOL 20 ML ONE (15:32)
[2024-09-22] MEDS ORDERED: Lidocaine 1% PF 5 ML VIAL ONE (15:33)
[2024-09-22] MEDS ORDERED: Midazolam HCl 2 mg/2 ml Vial ONE (15:49)
[2024-09-22] MEDS ORDERED: fentaNYL PF 100 MCG/2 ML SYRINGE ONE (16:32)
[2024-09-22] MEDS ORDERED: HYDROmorphone 0.5 MG/0.5 ML SYRINGE ONE (16:54)
[2024-09-22 17:52] VITALS: BMI 27.6
[2024-09-22] MEDS: Meropenem 1 GM in Sodium Chloride 0.9% 100 ML IVPB SCH (18:21)
[2024-09-22] MEDS: Sodium Chloride 0.9% 1,000 ML IV SCH (18:23)
[2024-09-22 20:40] LABS: Hemoglobin 9.2 g/dL (14.0-18.0); Mean Corpuscular HGB CONC 32.9 g/dL (32.0-36.0); Mean Corpuscular Volume 85.1 fL (78.0-98.0); Mean Platelet Volume 10.9 fL (7.4-10.4); Platelet Count 136 10x3/uL (130-400); RBC Distribution Width 16.3 % (11.5-14.5); Red Blood Cell (RBC) Count 3.29 mill/uL (4.70-6.10)
[2024-09-22] MEDS: fentaNYL 50 mcg/mL 1 mL Vial SLOW IVP PRN (22:22)
[2024-09-22] MEDS: diphenhydrAMINE 50 MG/ML VIAL IVP SCH (23:01)
[2024-09-22] MEDS: Melatonin 3 MG TAB PO PRN (23:02)
[2024-09-23 04:48] LABS: #Basophils Less than 0.03 10x3/uL (0.0-0.2); %Basophils 0.6 % (0.0-1.0); %Eosinophils 3.9 % (0.0-10.0); %Lymphocytes 25.9 % (21.0-51.0); %Monocytes 10.7 % (0.0-10.0); %Neutrophils 58.6 % (42.0-75.0); Hematocrit 27.8 % (42.0-52.0); Hemoglobin 9.1 g/dL (14.0-18.0); Mean Corpuscular HGB CONC 32.7 g/dL (32.0-36.0); Mean Corpuscular Hemoglobin 28.3 pg (27.0-31.0); Mean Corpuscular Volume 86.3 fL (78.0-98.0); Mean Platelet Volume 10.9 fL (7.4-10.4); Platelet Count 140 10x3/uL (130-400); RBC Distribution Width 16.2 % (11.5-14.5); Red Blood Cell (RBC) Count 3.22 mill/uL (4.70-6.10)
[2024-09-23] MEDS: Meropenem 1 GM in Sodium Chloride 0.9% 100 ML IVPB SCH ×2 (04:54→12:47)
[2024-09-23 05:43] LABS: Anion Gap 13 mmol/L (10-20); BUN (Urea Nitrogen) 9 mg/dL (8.9-20.6); Calc. Creatinine Clearance 105 mL/min (70-130); Calcium 7.7 mg/dL (7.8-10.44); Carbon Dioxide 22 mmol/L (22-29); Chloride 109 mmol/L (98-107); Estimated GFR 79; Glucose 105 mg/dL (70-105); Potassium 3.6 mmol/L (3.5-5.1); Sodium 140 mmol/L (136-145)
[2024-09-23] MEDS: Pantoprazole 80 MG, Admixture Fee 1 EACH in Sodium Chloride 0.9% 100 ML IVPB SCH (06:22)
[2024-09-23] MEDS ORDERED: SUMATRIPTAN SUCCINATE 6 MG/0.5 ML SC PRN ×2 (10:01→10:45)
[2024-09-23] MEDS ORDERED: Non-Formulary Item 1 EACH (Sumatriptan Succinate [Imitrex] 100 MG Tab) PO PRN (10:01)
[2024-09-23] MEDS ORDERED: SUMAtriptan Succinate 50 MG TAB PO SCH (11:00)
[2024-09-23] MEDS: SUMAtriptan Succinate 6 MG/0.5 ML VIAL SC PRN (11:11)
[2024-09-23] MEDS: oxyCODONE 5 MG TAB PO PRN (12:45)
[2024-09-23] MEDS: Acetaminophen 325 MG TAB PO PRN (12:46)
[2024-09-23] MEDS: fentaNYL 50 mcg/mL 1 mL Vial SLOW IVP PRN (15:50)
[2024-09-23] MEDS ORDERED: ALPRAZolam 1 MG TAB PO PRN (18:05)
[2024-09-23] MEDS: Morphine 2 MG/ML VIAL SLOW IVP PRN (19:11)
[2024-09-23] MEDS: Metoprolol Succinate XL 50 MG ER.TAB PO SCH (20:02)
[2024-09-23] MEDS: Pregabalin 75 MG CAP PO SCH (20:24)
[2024-09-23] MEDS: Atorvastatin Calcium 10 MG TAB PO SCH (20:25)
[2024-09-23] MEDS: Pantoprazole 40 MG VIAL IVP SCH (20:25)
[2024-09-23 20:54] LABS: Hematocrit 31.6 % (42.0-52.0); Hemoglobin 10.2 g/dL (14.0-18.0); Mean Corpuscular HGB CONC 32.3 g/dL (32.0-36.0); Mean Corpuscular Hemoglobin 27.9 pg (27.0-31.0); Mean Corpuscular Volume 86.3 fL (78.0-98.0); Mean Platelet Volume 10.6 fL (7.4-10.4); Platelet Count 175 10x3/uL (130-400); RBC Distribution Width 16.1 % (11.5-14.5); Red Blood Cell (RBC) Count 3.66 mill/uL (4.70-6.10)
[2024-09-23] MEDS: Temazepam 15 MG CAP PO PRN (22:31)
[2024-09-24] MEDS: Pantoprazole 40 MG VIAL IVP SCH (03:00)
[2024-09-24] MEDS: Sucralfate 1 GM TAB PO SCH (03:00)
[2024-09-24] MEDS: Levothyroxine 150 MCG TAB PO SCH (06:34)
[2024-09-24 07:39] LABS: #Basophils Less than 0.03 10x3/uL (0.0-0.2); %Basophils 0.2 % (0.0-1.0); %Eosinophils 2.2 % (0.0-10.0); %Lymphocytes 28.2 % (21.0-51.0); %Monocytes 9.2 % (0.0-10.0); %Neutrophils 59.7 % (42.0-75.0); Hematocrit 31.1 % (42.0-52.0); Hemoglobin 10.3 g/dL (14.0-18.0); Mean Corpuscular HGB CONC 33.1 g/dL (32.0-36.0); Mean Corpuscular Hemoglobin 28.1 pg (27.0-31.0); Mean Platelet Volume 11.2 fL (7.4-10.4); Platelet Count 199 10x3/uL (130-400); RBC Distribution Width 15.9 % (11.5-14.5); Red Blood Cell (RBC) Count 3.66 mill/uL (4.70-6.10)
[2024-09-24 08:01] LABS: Anion Gap 13 mmol/L (10-20); BUN (Urea Nitrogen) 6 mg/dL (8.9-20.6); Calc. Creatinine Clearance 102 mL/min (70-130); Calcium 8.3 mg/dL (7.8-10.44); Carbon Dioxide 24 mmol/L (22-29); Chloride 107 mmol/L (98-107); Estimated GFR 76; Glucose 91 mg/dL (70-105); Magnesium 1.8 mg/dL (1.6-2.6); Potassium 3.4 mmol/L (3.5-5.1); Sodium 141 mmol/L (136-145)
[2024-09-24] MEDS: DULoxetine 30 MG CAP PO SCH (09:26)
[2024-09-24] MEDS: Mag-Al 1200 mg/1200 mg/30 ML UDCUP PO PRN (09:43)
[2024-09-24 11:50] VITALS: BP 117/67; TEMP 97.4
[2024-09-24 12:58] LABS: Hematocrit 32.9 % (42.0-52.0); Hemoglobin 10.2 g/dL (14.0-18.0)
[2024-09-24] MEDS ORDERED: Heparin 1,000 UNITS/ML VIAL ONE (13:00)
[2024-09-26] MEDS ORDERED: Cyanocobalamin (Vitamin B-12) 1,000 MCG TAB PO SCH (09:00)
== END 2024-09-24 16:20 | disposition left against medical advice (07) | DRG 378 ==
LOC: ERS 06:01 → ERHOLD 13:22 → IMCU/EMU 17:57 → T4-B 09-23 14:44
PROVIDERS: ADMIT Internal Medicine; ATTEND Internal Medicine
PROC: 0DJ08ZZ Inspection of Upper Intestinal Tract, Via Natural or Artificial Opening Endoscopic (ICD-10-PCS; principal; 2024-09-22)
PROC: 30233N1 Transfusion of Nonautologous Red Blood Cells into Peripheral Vein, Percutaneous Approach (ICD-10-PCS; 2024-09-22)
PROC: 3E033GC Introduction of Other Therapeutic Substance into Peripheral Vein, Percutaneous Approach (ICD-10-PCS; 2024-09-24)
DX: K92.2 Gastrointestinal hemorrhage, unspecified (principal); D62 Acute posthemorrhagic anemia; K50.90 Crohn's disease, unspecified, without complications; N17.9 Acute kidney failure, unspecified; N39.0 Urinary tract infection, site not specified; K21.9 Gastro-esophageal reflux disease without esophagitis; N18.2 Chronic kidney disease, stage 2 (mild); E78.5 Hyperlipidemia, unspecified; I48.91 Unspecified atrial fibrillation; R73.03 Prediabetes; G43.809 Other migraine, not intractable, without status migrainosus; E03.9 Hypothyroidism, unspecified; F41.9 Anxiety disorder, unspecified; F32.A Depression, unspecified; I12.9 Hypertensive chronic kidney disease with stage 1 through stage 4 chronic kidney disease, or unspecified chronic kidney disease; K44.9 Diaphragmatic hernia without obstruction or gangrene; Z88.0 Allergy status to penicillin; Z88.8 Allergy status to other drugs, medicaments and biological substances; Z90.49 Acquired absence of other specified parts of digestive tract; Z79.890 Hormone replacement therapy; Z79.899 Other long term (current) drug therapy; Z79.82 Long term (current) use of aspirin; I10 Essential (primary) hypertension; J44.9 Chronic obstructive pulmonary disease, unspecified
CPT/HCPCS: 36415; 36430; 74177; 78278; 80048; 80053; 81001; 82274; 83605; 83690; 83735; 84443; 84484; 85025; 85610; 85730; 86850; 86900; 86901; 87086; 93005; 93010; 99283; A9560; J1171; J1200; J1644; J1885; J2185; J2250; J2270; J2272; J2354; J2405; J2470; J2704; J3010; J7030; J7050; P9016; Q9967

== ENCOUNTER 2024-10-21 11:17 | Emergency (ER) | payer OTHER, MEDICAID ==
[2024-10-21] MEDS ORDERED: Aspirin Chewable 81 MG TAB ONE (11:42)
[2024-10-21 12:29] LABS: #Basophils Less than 0.03 10x3/uL (0.0-0.2); #Eosinophils Less than 0.03 10x3/uL (0.0-0.7); %Basophils 0.2 % (0.0-1.0); %Eosinophils 0.1 % (0.0-10.0); %Lymphocytes 11.3 % (21.0-51.0); %Monocytes 3.1 % (0.0-10.0); %Neutrophils 84.9 % (42.0-75.0); Hematocrit 36.3 % (42.0-52.0); Mean Corpuscular HGB CONC 33.1 g/dL (32.0-36.0); Mean Corpuscular Hemoglobin 26.3 pg (27.0-31.0); Mean Corpuscular Volume 79.6 fL (78.0-98.0); Mean Platelet Volume 10.3 fL (7.4-10.4); Platelet Count 245 10x3/uL (130-400); RBC Distribution Width 14.5 % (11.5-14.5); Red Blood Cell (RBC) Count 4.56 mill/uL (4.70-6.10)
[2024-10-21 12:47] LABS: ALT (SGPT) 10 U/L (Less than 45); AST (SGOT) 15 U/L (11-34); Albumin 4.1 g/dL (3.1-4.5); Alkaline Phosphatase 170 U/L (40-110); Anion Gap 10 mmol/L (10-20); BUN (Urea Nitrogen) 12 mg/dL (8.9-20.6); Bilirubin, Total 0.3 mg/dL (0.3-1.2); Calc. Creatinine Clearance 0 mL/min (70-130); Calcium 9.9 mg/dL (7.8-10.44); Carbon Dioxide 28 mmol/L (22-29); Chloride 106 mmol/L (98-107); Estimated GFR 111; Globulin 3.2 g/dL (2.4-3.5); Glucose 161 mg/dL (70-105); Lipase 21 U/L (8-78); Potassium 3.7 mmol/L (3.5-5.1); Protein, Total 7.3 g/dL (6.0-8.3); Sodium 140 mmol/L (136-145)
[2024-10-21 12:48] LABS: Troponin I Less than 0.010 ng/mL (< 0.028)
[2024-10-21] MEDS ORDERED: Nitroglycerin 0.4 MG TAB 1 EACH ONE (13:27)
[2024-10-21] MEDS ORDERED: HYDROcodone/Acetaminophen 5/325 mg Tablet ONE (13:58)
[2024-10-21 14:31] LABS: Amphetamine Not Detected (NotDetected); Barbiturates Screen Not Detected (NotDetected); Benzodiazepine Screen Detected (NotDetected); Cocaine Metabolite Screen Not Detected (NotDetected); Methadone Not Detected (NotDetected); Methamphetamine Not Detected (NotDetected); Opiate Screen Not Detected (NotDetected); Oxycodone Screen Not Detected (NotDetected); Phencyclidine (PCP) Not Detected (NotDetected); THC/Cannabinoid Screen Detected (NotDetected); Tricyclic Screen Not Detected (NotDetected)
[2024-10-21] MEDS ORDERED: Milk Of Magnesia 30 ML UDCUP ONE (15:45)
[2024-10-21] MEDS ORDERED: Morphine 4 MG/ML VIAL ONE (15:46)
[2024-10-21] MEDS ORDERED: Famotidine/PF 20 mg/2ml Vial ONE (15:46)
[2024-10-21] MEDS ORDERED: Lidocaine Viscous Sol 2% 15 ml UD Cup ONE (15:46)
== END 2024-10-21 16:24 | disposition home or self-care (01) ==
LOC: ERS 11:17
DX: R07.2 Precordial pain (principal); I10 Essential (primary) hypertension; E03.9 Hypothyroidism, unspecified; G62.9 Polyneuropathy, unspecified; E78.00 Pure hypercholesterolemia, unspecified; R79.89 Other specified abnormal findings of blood chemistry; Z79.899 Other long term (current) drug therapy
CPT/HCPCS: 71045; 80053; 80306; 83690; 83880; 84484; 85025; 93005; 96374; 96375; 99285; J2270; J3490

== ENCOUNTER 2025-07-15 14:47 | Emergency (ER) | payer OTHER ==
[~2025-07-15 14:47] MED LIST changes: +Iopamidol 370 76% 100 ML VIAL ONE; -Lidocaine 1% PF 5 ML VIAL ONE; -Sodium Bicarbonate 2.5 MEQ/5 ML SDV ONE
[2025-07-15] MEDS ORDERED: Ondansetron PF 4 MG/2 ML Vial ONE (16:06)
[2025-07-15] MEDS ORDERED: Famotidine/PF 20 mg/2ml Vial ONE (16:07)
[2025-07-15 16:38] LABS: #Basophils 0.03 10x3/uL (0.0-0.2); #Eosinophils 0.10 10x3/uL (0.0-0.7); #Monocytes 0.55 10x3/uL (0.11-0.59); #Neutrophils 5.68 10x3/uL (1.40-6.50); %Basophils 0.4 % (0.0-1.0); %Eosinophils 1.3 % (0.0-10.0); %Lymphocytes 15.9 % (21.0-51.0); %Monocytes 7.2 % (0.0-10.0); %Neutrophils 74.3 % (42.0-75.0); Hematocrit 35.4 % (42.0-52.0); Hemoglobin 12.1 g/dL (14.0-18.0); Mean Corpuscular Hemoglobin 28.3 pg (27.0-31.0); Mean Corpuscular Volume 82.9 fL (78.0-98.0); Platelet Count 176 10x3/uL (130-400); Red Blood Cell (RBC) Count 4.27 mill/uL (4.70-6.10); White Blood Cell (WBC) Count 7.65 10x3/uL (4.8-10.8)
[2025-07-15 16:53] LABS: ALT (SGPT) 49 U/L (Less than 45); AST (SGOT) 28 U/L (11-34); Albumin 4.0 g/dL (3.1-4.5); Alkaline Phosphatase 152 U/L (40-110); Anion Gap 12 mmol/L (10-20); BUN (Urea Nitrogen) 14 mg/dL (8.9-20.6); Bilirubin, Total 0.3 mg/dL (0.3-1.2); Calc. Creatinine Clearance 0 mL/min (70-130); Calcium 9.5 mg/dL (7.8-10.44); Carbon Dioxide 26 mmol/L (22-29); Chloride 109 mmol/L (98-107); Globulin 2.5 g/dL (2.4-3.5); Glucose 109 mg/dL (70-105); Lipase 13 U/L (8-78); Magnesium 1.9 mg/dL (1.6-2.6); Potassium 4.2 mmol/L (3.5-5.1); Sodium 143 mmol/L (136-145)
== END 2025-07-15 17:33 | disposition left against medical advice (07) ==
LOC: ERS 14:47
DX: M54.6 Pain in thoracic spine (principal); R10.13 Epigastric pain; J44.9 Chronic obstructive pulmonary disease, unspecified; Z53.21 Procedure and treatment not carried out due to patient leaving prior to being seen by health care provider
CPT/HCPCS: 71045; 74177; 80053; 83690; 83735; 84484; 85025; 93005; J1308; J2270; J2405; 96374; 96375; Q9967

== ENCOUNTER 2025-08-11 21:57 | Emergency (ER) | payer OTHER | END 2025-08-11 22:23 | disposition left against medical advice (07) | LOC: ERS 21:57 | DX: Z53.21 Procedure and treatment not carried out due to patient leaving prior to being seen by health care provider (principal) ==

== ENCOUNTER 2025-08-12 00:33 | Emergency (ER) | payer OTHER ==
[2025-08-12] MEDS ORDERED: Ondansetron PF 4 MG/2 ML Vial ONE (01:41)
[2025-08-12] MEDS ORDERED: diphenhydrAMINE 50 MG/ML VIAL ONE (01:41)
== END 2025-08-12 02:20 | disposition home or self-care (01) ==
LOC: ERS 00:33
DX: R51.9 Headache, unspecified (principal); J44.9 Chronic obstructive pulmonary disease, unspecified
CPT/HCPCS: J1200; J1642; J2405; J3030

== ENCOUNTER 2025-08-13 06:43 | Inpatient (IN) | payer OTHER ==
[2025-08-13] MEDS ORDERED: Aspirin Chewable 81 MG TAB ONE (07:27)
[2025-08-13] MEDS ORDERED: Pantoprazole 40 MG VIAL ONE ×2 (07:43→16:07)
[2025-08-13 07:45] LABS: #Basophils 0.06 10x3/uL (0.0-0.2); #Eosinophils 0.21 10x3/uL (0.0-0.7); #Monocytes 1.33 10x3/uL (0.11-0.59); #Neutrophils 5.79 10x3/uL (1.40-6.50); %Basophils 0.6 % (0.0-1.0); %Eosinophils 2.0 % (0.0-10.0); %Lymphocytes 29.1 % (21.0-51.0); %Monocytes 12.7 % (0.0-10.0); %Neutrophils 55.0 % (42.0-75.0); Hematocrit 38.9 % (42.0-52.0); Hemoglobin 13.0 g/dL (14.0-18.0); Mean Corpuscular Hemoglobin 28.0 pg (27.0-31.0); Mean Corpuscular Volume 83.8 fL (78.0-98.0); Platelet Count 252 10x3/uL (130-400); Red Blood Cell (RBC) Count 4.64 mill/uL (4.70-6.10); White Blood Cell (WBC) Count 10.51 10x3/uL (4.8-10.8)
[2025-08-13 08:04] LABS: ALT (SGPT) 42 U/L (Less than 45); AST (SGOT) 35 U/L (11-34); Albumin 4.1 g/dL (3.1-4.5); Alkaline Phosphatase 166 U/L (40-110); Anion Gap 18 mmol/L (10-20); BUN (Urea Nitrogen) 23 mg/dL (8.9-20.6); Bilirubin, Total 0.4 mg/dL (0.3-1.2); Calc. Creatinine Clearance 0 mL/min (70-130); Calcium 9.7 mg/dL (7.8-10.44); Carbon Dioxide 24 mmol/L (22-29); Chloride 107 mmol/L (98-107); Globulin 2.5 g/dL (2.4-3.5); Glucose 108 mg/dL (70-105); Potassium 3.5 mmol/L (3.5-5.1); Sodium 145 mmol/L (136-145)
[2025-08-13] MEDS ORDERED: Iopamidol-370 76% 500 ML MDV (1 ML CHARGE) ONE (09:43)
[2025-08-13 10:57] LABS: Bacteria/HPF None Seen HPF (None Seen); CAUTI Indications for Culture Dysuria,urgency,freq; Glucose, Urine (Dipstick) Normal (Negative); Leukocyte 75 Leu/uL (Negative); Protein, Urine (Dipstick) 70 mg/dL (Neg-Trace); RBC/HPF None Seen HPF (0-3); Specific Gravity, Urine 1.027 (1.002-1.036); WBC/HPF None Seen HPF (0-3)
[2025-08-13 11:02] LABS: Cocaine Metabolite Screen Negative (Negative); THC/Cannabinoid Screen PRELIM POSITIVE (Negative); Tricyclic Screen PRELIM POSITIVE (Negative)
[2025-08-13 11:04] LABS: Urine Culture Reflex No No
[2025-08-13 11:05] LABS: Anion Gap 16 mmol/L (10-20); BUN (Urea Nitrogen) 23 mg/dL (8.9-20.6); Calc. Creatinine Clearance 0 mL/min (70-130); Calcium 8.5 mg/dL (7.8-10.44); Carbon Dioxide 23 mmol/L (22-29); Chloride 111 mmol/L (98-107); Glucose 105 mg/dL (70-105); Potassium 3.8 mmol/L (3.5-5.1); Sodium 146 mmol/L (136-145)
[2025-08-13] MEDS ORDERED: Acetaminophen 500 MG TAB ONE (12:18)
[2025-08-13] MEDS ORDERED: Melatonin 3 MG TAB PO PRN (12:51)
[2025-08-13 13:43] LABS: Sodium, Urine Less than 20 mmol/L (Not Available)
[2025-08-13] MEDS: Sodium Bicarbonate 50 MEQ in Dextrose 5 %-0.45 % NaCl 1,000 ML IV SCH (14:45)
[2025-08-13 15:58] LABS: Magnesium 1.6 mg/dL (1.6-2.6)
[2025-08-13] MEDS ORDERED: Mag-Al 1200 mg/1200 mg/30 ML UDCUP ONE (16:07)
[2025-08-13] MEDS ORDERED: Lidocaine Viscous Sol 2% 15 ml UD Cup ONE (16:08)
[2025-08-13] MEDS ORDERED: Norepinephrine 8 MG/0.9% NS 0 ML ONE (16:08)
[2025-08-13] MEDS: Pantoprazole 40 MG VIAL IVP SCH (16:21)
[2025-08-13] MEDS: Lidocaine 2% Viscous Solution 10 ML, Aluminum & Magnesium Hydroxide 30 ML SSW SCH (16:21)
[2025-08-13 22:05] VITALS: BMI 27478.2
[2025-08-13 22:19] LABS: ALT (SGPT) 31 U/L (Less than 45); AST (SGOT) 21 U/L (11-34); Albumin 3.3 g/dL (3.1-4.5); Alkaline Phosphatase 130 U/L (40-110); Anion Gap 10 mmol/L (10-20); BUN (Urea Nitrogen) 21 mg/dL (8.9-20.6); Bilirubin, Total 0.3 mg/dL (0.3-1.2); Calc. Creatinine Clearance 68 mL/min (70-130); Calcium 8.4 mg/dL (7.8-10.44); Carbon Dioxide 24 mmol/L (22-29); Chloride 114 mmol/L (98-107); Globulin 2.1 g/dL (2.4-3.5); Glucose 113 mg/dL (70-105); Potassium 3.6 mmol/L (3.5-5.1); Sodium 144 mmol/L (136-145)
[2025-08-14] MEDS: Levothyroxine 150 MCG TAB PO SCH (05:01)
[2025-08-14 05:33] LABS: #Basophils 0.04 10x3/uL (0.0-0.2); #Eosinophils 0.13 10x3/uL (0.0-0.7); #Monocytes 0.67 10x3/uL (0.11-0.59); #Neutrophils 3.83 10x3/uL (1.40-6.50); %Basophils 0.6 % (0.0-1.0); %Eosinophils 2.0 % (0.0-10.0); %Lymphocytes 29.2 % (21.0-51.0); %Monocytes 10.1 % (0.0-10.0); %Neutrophils 57.8 % (42.0-75.0); Hematocrit 36.5 % (42.0-52.0); Hemoglobin 12.3 g/dL (14.0-18.0); Mean Corpuscular Hemoglobin 28.0 pg (27.0-31.0); Mean Corpuscular Volume 83.0 fL (78.0-98.0); Platelet Count 180 10x3/uL (130-400); Red Blood Cell (RBC) Count 4.40 mill/uL (4.70-6.10); White Blood Cell (WBC) Count 6.62 10x3/uL (4.8-10.8)
[2025-08-14 05:54] LABS: Anion Gap 10 mmol/L (10-20); BUN (Urea Nitrogen) 17 mg/dL (8.9-20.6); Calc. Creatinine Clearance 92 mL/min (70-130); Calcium 8.3 mg/dL (7.8-10.44); Carbon Dioxide 24 mmol/L (22-29); Cardiac Risk 5.8 (Less than 4.5); Chloride 112 mmol/L (98-107); Cholesterol 144 mg/dl (< 200 Desired); Glucose 98 mg/dL (70-105); HDL Cholesterol 25 mg/dL (>60 Neg Risk); LDL Cholesterol, Calculated 47 mg/dL; Potassium 3.2 mmol/L (3.5-5.1); Sodium 143 mmol/L (136-145); Triglycerides 359 mg/dL (Less than 150)
[2025-08-14 07:54] LABS: Magnesium 1.6 mg/dL (1.6-2.6)
[2025-08-14] MEDS ORDERED: Metoprolol Succinate XL 50 MG ER.TAB PO SCH (09:00)
[2025-08-14] MEDS ORDERED: Aspirin 81 mg Enteric Coated Tablet PO SCH (09:00)
[2025-08-14] MEDS: Aspirin Chewable 81 MG TAB PO SCH (09:02)
[2025-08-14] MEDS: Pantoprazole 40 MG DR.TAB PO SCH (09:02)
[2025-08-14] MEDS: PNEUMOC 20-VAL CONJ-DIP CRM/PF 0.5 ML SYRINGE IM ONE (09:33)
[2025-08-14] MEDS: FLU (Fluarix Triv) 25-26 (6MOS UP)/PF 45 MCG/0.5 ML Syringe IM ONE (09:53)
[2025-08-14] MEDS ORDERED: Albuterol 1.25 MG (3 mL) NEB NEB PRN (11:00)
[2025-08-14] MEDS: Sodium Bicarbonate 50 MEQ in Dextrose 5 %-0.45 % NaCl 1,000 ML IV SCH (18:01)
[2025-08-14] MEDS: Magnesium Oxide 400 MG TAB PO SCH (21:16)
[2025-08-15] MEDS: Acetaminophen 325 MG TAB PO PRN (04:06)
[2025-08-15 05:03] LABS: #Basophils 0.04 10x3/uL (0.0-0.2); #Eosinophils 0.14 10x3/uL (0.0-0.7); #Monocytes 0.76 10x3/uL (0.11-0.59); #Neutrophils 6.02 10x3/uL (1.40-6.50); %Basophils 0.5 % (0.0-1.0); %Eosinophils 1.6 % (0.0-10.0); %Lymphocytes 18.7 % (21.0-51.0); %Monocytes 8.8 % (0.0-10.0); %Neutrophils 69.9 % (42.0-75.0); Hematocrit 39.0 % (42.0-52.0); Hemoglobin 13.2 g/dL (14.0-18.0); Mean Corpuscular Hemoglobin 27.5 pg (27.0-31.0); Mean Corpuscular Volume 81.3 fL (78.0-98.0); Platelet Count 177 10x3/uL (130-400); Red Blood Cell (RBC) Count 4.80 mill/uL (4.70-6.10); White Blood Cell (WBC) Count 8.61 10x3/uL (4.8-10.8)
[2025-08-15 05:26] LABS: Albumin 3.4 g/dL (3.1-4.5); Anion Gap 12 mmol/L (10-20); BUN (Urea Nitrogen) 9 mg/dL (8.9-20.6); BUN/Creatinine Ratio 9.68; Calc. Creatinine Clearance 137 mL/min (70-130); Calcium 9.0 mg/dL (7.8-10.44); Carbon Dioxide 28 mmol/L (22-29); Chloride 107 mmol/L (98-107); Glucose 110 mg/dL (70-105); Magnesium 1.6 mg/dL (1.6-2.6); Potassium 3.0 mmol/L (3.5-5.1); Sodium 144 mmol/L (136-145)
[2025-08-15] MEDS: Magnesium Sulfate In Water 4 GM in Premix 1 BAG IVPB SCH (09:30)
[2025-08-15 11:56] VITALS: BP 115/63; TEMP 98.5
[2025-08-15] MEDS: Cyanocobalamin (Vitamin B-12) 1,000 MCG TAB PO SCH (12:53)
== END 2025-08-15 15:45 | disposition home or self-care (01) | DRG 314 ==
LOC: ERS 06:43 → ERHOLD 12:28 → OBSVTOIN 15:23 → 2NO 21:05
PROVIDERS: ADMIT Hospitalist; ATTEND Internal Medicine
DX: I95.9 Hypotension, unspecified (principal); R57.8 Other shock; K50.90 Crohn's disease, unspecified, without complications; N17.9 Acute kidney failure, unspecified; M87.852 Other osteonecrosis, left femur; M87.851 Other osteonecrosis, right femur; R07.89 Other chest pain; K21.9 Gastro-esophageal reflux disease without esophagitis; E03.9 Hypothyroidism, unspecified; J44.9 Chronic obstructive pulmonary disease, unspecified; G89.4 Chronic pain syndrome; Z88.0 Allergy status to penicillin; Z88.8 Allergy status to other drugs, medicaments and biological substances; I48.91 Unspecified atrial fibrillation; D64.9 Anemia, unspecified; Z98.890 Other specified postprocedural states; N18.9 Chronic kidney disease, unspecified; I12.9 Hypertensive chronic kidney disease with stage 1 through stage 4 chronic kidney disease, or unspecified chronic kidney disease; Z79.899 Other long term (current) drug therapy; K52.9 Noninfective gastroenteritis and colitis, unspecified; E87.6 Hypokalemia; E83.42 Hypomagnesemia; E78.5 Hyperlipidemia, unspecified; G43.909 Migraine, unspecified, not intractable, without status migrainosus; E86.0 Dehydration
CPT/HCPCS: 36415; 71045; 71275; 74176; 74177; 80048; 80053; 80061; 80069; 80306; 80307; 81001; 82533; 82550; 82570; 83605; 83735; 83880; 84100; 84145; 84300; 84443; 84484; 85025; 86850; 86900; 86901; 87077; 87086; 87186; 90471; 90677; 93005; 94760; 96361; 96365; 96366; 96375; G0009; J1642; J2470; J3030; J3475; J7042; Q9967